=== PATIENT | male | born 1960 | race Caucasian/White ===

== ENCOUNTER 2020-11-26 12:13 | Emergency (ER) | payer OTHER, SELFPAY ==
--- NOTE | ~2020-11-26 | CT_ITS ---
EXAMINATION: CT brain wo con EXAM DATE: 11/26/2020 13:31 INDICATION: Fell out of wheelchair 0400 8 mg coumadin daily. Head injury. TECHNIQUE: Spiral CT of the head was performed without contrast. Axial, coronal and sagittal images were reviewed. The dose-length product (DLP) for this examination was 605.33 mGy-cm. The exposure w as tailored according to patient size, and iterative reconstruction (ASIR) was used as additional dos e reduction technique. Comparison is made to prior examination from 02/16/2016. FINDINGS: There is no acute intraparenchymal hemorrhage. No evidence of intraparenchymal brain mass lesion. No evidence of acute infarction. Please note that initial head CT has limited sensitivity f or small or acute infarctions. There are old bilateral basal ganglia and thalamic lacunar infarction s. There is periventricular and subcortical hypodensity, nonspecific but probably related to small v essel ischemic disease. There is prominence of the sulci and ventricles related to cerebral atrophy . There is intracranial carotid arteriosclerosis. There are no extra-axial collections. There is no mass effect or midline shift. The orbits are unremarkable. There is anterior vertex scalp lacera tion, small amount of swelling. The visualized sinuses and mastoid air cells are well aerated. IMPRESSION: 1. No acute intracranial findings. 2. Chronic age related findings. 3. Old bilateral basal ganglia, thalamic lacunar infarctions. 4. Scalp laceration, swelling. Reviewed, dictated and finalized at location A. NCIAL HEALTH COUNSELOR
[2020-11-26 12:33] VITALS: BP 160/92; PULSE 72; RESP 18; TEMP 36.6; O2SAT 100
[2020-11-26 14:30] VITALS: BP 152/64; PULSE 84; RESP 16; O2SAT 97
--- NOTE | 2020-11-26 15:40 | PC.NURSE ---
patient requested to sit in chair in room. patient assisted to sit in chair at bedside. bed alarm on chair. assisted patient to use urinal. requires assist x 1 at minimum to stand or ambulate.
[2020-11-26 15:42] LABS: INR 1.6; Prothrombin Time 19.7 Seconds (11.1-14.7)
[2020-11-26 15:43] LABS: Partial Thromboplastin Time 36.2 SECONDS (22.3-36.8)
--- NOTE | 2020-11-26 16:04 | ED.HEATRA ---
HPI - Head Injury General Chief complaint: Head Injury Stated complaint: Fall Time Seen by Provider: 11/26/20 14:38 Source: patient Mode of arrival: ambulatory Limitations: no limitations History of Present Illness HPI Narrative: 59-year-old male Presents for evaluation of head injury Usually supposed to use a wheelchair to get around but went to the bathroom around 4 AM without it and fell He struck the top of his head and has a minor abrasion there No other complaints but was sent for evaluation because he takes Coumadin Specifically he has no neck pain, no focal neurologic issues and has not been sick MD Complaint: head injury Related Data Home Medications Medication Instructions Recorded Confirmed Admelog U-100 Insulin lispro 11/26/20 albuterol QID PRN 11/26/20 amantadine HCl DAILY 11/26/20 aspirin [Adult Low Dose Aspirin] 81 mg PO DAILY 11/26/20 atorvastatin 10 mg PO DAILY 11/26/20 benztropine [Cogentin] 1 mg PO BID 11/26/20 bupropion HCl [Wellbutrin SR] 150 mg PO BID 11/26/20 diltiazem HCl [Diltia XT] 120 mg PO DAILY 11/26/20 furosemide [Lasix] 40 mg PO DAILY 11/26/20 insulin glargine [Basaglar KwikPen 8 unit SUBCUT BID 11/26/20 U-100 Insulin] insulin lispro protamin-lispro 10 unit SUBCUT QAM 11/26/20 [Humalog Mix 75-25 KwikPen] lorazepam [Ativan] 0.25 mg PO BID PRN 11/26/20 losartan 50 mg PO DAILY 11/26/20 paroxetine HCl 40 mg PO QAM 11/26/20 risperidone 1 mg PO BID 11/26/20 salmeterol [Serevent Diskus] 1 inh INHALATION Q12H 11/26/20 trazodone 75 mg PO HS 11/26/20 warfarin 8 mg PO DAILY 11/26/20 Allergies Allergy/AdvReac Type Severity Reaction Status Date / Time acetaminophen Allergy Unknown Unknown Verified 11/26/20 12:45 aspirin Allergy Unknown Unknown Verified 11/26/20 12:16 Review of Systems Review of Systems: All systems reviewed & are unremarkable except as noted in HPI and below Constitutional: Constitutional: Denies chills, Reports fatigue, Denies fever(s), Denies headache(s) and Reports weakness Eyes: Eyes: Reports no additional eye complaints and Denies change in vision ENT: Denies headache(s), Denies epistaxis, Denies nasal congestion and Denies sore throat Cardiovascular: Cardiovascular: Denies chest pain, Denies leg edema, Denies palpitations and Denies dyspnea Respiratory: Respiratory: Denies cough, Denies dyspnea and Denies wheezing Gastrointestinal: Gastrointestinal: Denies abdominal pain, Denies diarrhea, Denies nausea and Denies vomiting Genitourinary: Genitourinary: Denies hematuria, Denies dysuria and Denies urinary frequency Musculoskeletal: Musculoskeletal: Denies deformity, Denies arthralgias, Denies joint swelling, Denies muscle weakness and Denies numbness Integumentary/Breasts: Skin/Breast: Denies rash and Denies wounds Neurologic: Denies vertigo, Denies syncope, Reports headache(s), Denies focal weakness, Denies numbness and Denies weakness Psychiatric: Psychiatric: Reports no additional psychiatric complaints Endocrine: Endocrine: Denies fatigue and Denies palpitations Hematologic/Lymphatic: Hematologic/Lymphatic: Denies easy bleeding and Denies easy bruising Allergic/Immunologic: Allergic/Immunologic: Denies wheezing Exam Const: General: well developed, alert and awake Nutritional Appearance: well nourished HENMT: Head: normocephalic, atraumatic and contusion Ears: external ears normal General nose exam: No nasal discharge present and no epistaxis Face and sinus: face symmetric Other: He has got a superficial scrape on top of his head Eyes: Conjunctivae: conjunctivae normal Sclera: sclerae normal EOM: EOMs intact bilaterally Neck: Neck: normal visual inspection, supple and no JVD Other: No neck tenderness, no pain with range of motion Chest: Chest palpation & inspection: deferred Resp: Effort & Inspection: normal respiratory effort Auscultation: clear to auscultation bilaterally, no rales, no rhonchi, no wheezes and other
--- NOTE | 2020-11-26 16:30 | PC.NURSE ---
patient here in ED room 20 after reported ground level fall at approximately 0400 today at the [place]. patient was not sent for evaluation until this afternoon. small abrasion on right side of head. provider has cleaned and assessed. labs drawn now due to blood thinner. CT of head negative. patient is unsteady on his feet. on bed alarm. Ismael WINKLER also at bedside periodically.
--- NOTE | 2020-11-26 16:58 | PC.NURSE ---
pt dinner tray has been ordered
--- NOTE | 2020-11-26 17:55 | PC.NURSE ---
[facility] here early. paperwork completed. [facility] notified of patients return. spoke with Hailey WINKLER. patient given discharge paperwork. copy of ED record given to EMS for facility. alert. oriented. released to EMS care to transport back to [facility].
[2020-11-26 17:58] VITALS: BP 152/78; PULSE 78; RESP 18; TEMP 36.6; O2SAT 96
== END 2020-11-26 17:59 ==
PROVIDERS: General Practice; Emergency Provider Emergency Medicine
DX: S00.01XA Abrasion of scalp, initial encounter (principal); W18.30XA Fall on same level, unspecified, initial encounter
CPT/HCPCS: 36415; 70450; 85610; 85730; 99284

== ENCOUNTER 2021-12-15 14:57 | Inpatient (IN) | payer OTHER, SELFPAY ==
[2021-12-15] VITALS (23 sets, daily range): BP systolic 137–177; BP diastolic 80–100; PULSE 69–96; RESP 20–35; TEMP 36.1–36.8; O2SAT 93–99; BMI 46.4
--- NOTE | ~2021-12-15 | XR_ITS ---
EXAMINATION: XR chest 1V portable DATE: 12/15/2021 16:01 INDICATION: Shortness of breath and congestion. TECHNIQUE: frontal view of the chest was obtained. COMPARISON: Chest radiograph dated 08/08/2016 FINDINGS: Dense calcified pleural plaques projecting over the right mid to lower lung zone. Persistent opacitie s at the lateral left lung base corresponding to atelectasis/scarring. No new airspace opacities, pul monary edema pneumothorax or definitive pleural effusion. Cardiomegaly. Dual lead pacemaker seen with leads projecting over the expected locations of the right atrium and right ventricle. IMPRESSION: 1. Chronic opacities in the right mid to lower lung zones and at the left lung base corresponding to dense calcified pleural plaque on the right and atelectasis/scarring on the left. 2. Cardiomegaly. Reviewed, dictated and finalized at location A. CONSTRUCTION SUPERINTENDENT IMPRESSION: 1. Chronic opacities in the right mid to lower lung zones and at the left lung base corresponding to dense calcified pleural plaque on the right and atelectas is/scarring on the left. 2. Cardiomegaly.
--- NOTE | ~2021-12-15 | US_ITS ---
EXAMINATION: US venous doppler [facility] DATE: 12/16/2021 11:29 INDICATION: Bilateral lower limb edema TECHNIQUE: Turner scale images without and with compression and Doppler images of the bilateral lower e xtremity veins were obtained. COMPARISON: 11/14/2015 FINDINGS: Bilateral Palacios's cysts are noted. The right common femoral vein, profunda femoral vein, femoral vein, popliteal vein, peroneal trunk, p osterior tibial veins, and greater saphenous vein are patent. The left common femoral vein, profunda femoral vein, femoral vein, popliteal vein, peroneal trunk, po sterior tibial veins, and greater saphenous vein are patent. IMPRESSION: 1. Patent bilateral lower extremity veins. No evidence of deep venous thrombosis. 2. Bilateral Palacios cysts. Reviewed, dictated and finalized at location A. F BUILDER IMPRESSION: 1. Patent bilateral lower extremity veins. No evidence of deep venous thrombosi s. 2. Bilateral Palacios cysts.
--- NOTE | ~2021-12-15 | CT_ITS ---
EXAMINATION: CT diagnostic chest wo con DATE: 12/17/2021 16:50 INDICATION: Chronic opacities of the right mid and lower lung and left lung base. Dense calcified ple ural plaques. TECHNIQUE: Computed tomography (CT) of the chest was performed without intravenous contrast. The dose -length product was 470.14 mGy-cm. Automated exposure control and iterative reconstruction technique were employed. COMPARISON: CT dated 12/28/2014 FINDINGS: Cardiomegaly. No significant pleural or pericardial effusion. There is atherosclerosis of t he aorta and coronary arteries. No significant pleural or pericardial effusion. No thoracic lymphaden opathy. There are extensive pleural calcifications of the right lung, likely secondary to previous as bestos exposure or infection. There is chronic bilateral fissural thickening, left greater than right . There is chronic atelectasis/scarring in the lower lobes. There is a 4 mm right upper lobe nodule, image 44, likely benign. There are smaller nodules in the upper lobes. IMPRESSION: 1. Bilateral pulmonary nodules measuring 4 mm or less, likely benign. Consider follow-up low dose CT chest in 12 months. 2: Chronic infiltrates of the lower lungs which most likely represents atelectasis/scarring. 3: Chronic fissural thickening with chronic right pleural calcifications, likely from previous asbes tos exposure or infection. Reviewed, dictated and finalized at location A. EMIC MANAGER IMPRESSION: 1. Bilateral pulmonary nodules measuring 4 mm or less, likely benign. Consider follow-up low dose CT chest in 12 months. 2: Chronic infiltrates of the lower lungs which most likely represents atelecta sis/scarring. 3: Chronic fissural thickening with chronic right pleural calcifications, like ly from previous asbestos exposure or infection.
--- NOTE | ~2021-12-15 | XR_ITS ---
EXAMINATION: XR chest 1V portable DATE: 12/19/2021 12:09 INDICATION: Dyspnea TECHNIQUE: frontal view of the chest was obtained. COMPARISON: Chest radiograph dated 12/15/[address] dated 12/17/2021 FINDINGS: Multiple old right-sided rib fractures and extensive calcified pleural plaques in the right hemithora x likely sequela of chronic hemothorax. Persistent airspace opacities in the bilateral mid and lower lung zones which could represent atelectasis or pneumonia. No pneumothorax or definitive pleural effu natalie. Cardiomegaly. Dual lead pacemaker seen with leads projecting over the expected locations of the right atrium and right ventricle. IMPRESSION: 1. Unchanged opacities in the bilateral mid and lower lung zones which could represent atelectasis an d/or pneumonia. 2. More dense calcified pleural plaques throughout the right lung likely related to chronic hemothora x given the presence of multiple old right-sided rib fractures. 3. Cardiomegaly. Reviewed, dictated and finalized at location A. NICAL SERVICES ASSISTANT IMPRESSION: 1. Unchanged opacities in the bilateral mid and lower lung zones which could re present atelectasis and/or pneumonia. 2. More dense calcified pleural plaques throughout the right lung likely relate d to chronic hemothorax given the presence of multiple old right-sided rib frac tures. 3. Cardiomegaly.
--- NOTE | 2021-12-15 15:15 | ECG_ITS ---
Measurements Intervals [place] Rate: 69 P: [place]: 0 QRS: -73 QRSD: 198 T: 83 QT: 445 QTc: 478 Interpretive Statements ELECTRONIC VENTRICULAR PACEMAKER UNDERLYING PROBABLY ATRIAL FLUTTER/TACHYCARDIA BASELINE ARTIFACT- I, AVR, AVL, AVF, V1 NO FURTHER INTERPRETATION IS POSSIBLE ABNORMAL ECG Electronically Signed On 12-15-2021 15:28:40 [facility]NAGER [facility]ENTER by Dileep Vinson D.O.
--- NOTE | 2021-12-15 15:19 | ED.SOB ---
HPI - SOB/Dyspnea General Chief Complaint: Shortness of Breath/Dyspnea Stated Complaint: SOB Time Seen by Provider: 12/15/21 15:10 Source: patient and family History of Present Illness HPI Narrative: Pt sent from PCP office with SOB. Progressively worse per patient. Pt denies fever or CP. Pt has chronic LE edema. Pt on 3L o2 at home. MD elicited complaint: shortness of breath Pertinent past history: congestive heart failure Timing: constant and progressively worsening Severity: moderate Exacerbating factors: movement Relieving factors: rest Known history of: congestive heart failure Related Data Home Medications Medication Instructions Recorded Confirmed albuterol QID PRN 11/26/20 amantadine HCl 1 PO DAILY 11/26/20 aspirin [Adult Low Dose Aspirin] 81 mg PO DAILY 11/26/20 atorvastatin 10 mg PO HS 11/26/20 diltiazem HCl [Diltia XT] 120 mg PO DAILY 11/26/20 furosemide [Lasix] 40 mg PO DAILY 11/26/20 insulin glargine [Basaglar KwikPen 8 unit SUBCUT DAILY 11/26/20 U-100 Insulin] insulin lispro protamin-lispro 10 unit SUBCUT QAM 11/26/20 [Humalog Mix 75-25 KwikPen] losartan 50 mg PO DAILY 11/26/20 risperidone 1 mg PO DAILY 11/26/20 trazodone 50 mg PO HS 11/26/20 warfarin 6 mg PO DAILY 11/26/20 buspirone 10 mg PO TID 12/15/21 ergocalciferol (vitamin D2) 1 unit PO MONTHLY 12/15/21 famotidine 20 mg PO BID 12/15/21 gabapentin 300 mg PO HS 12/15/21 insulin glargine [Lantus Solostar 40 unit SUBCUT QPM 12/15/21 U-100 Insulin] insulin regular human [Novolin R 4 unit SUBCUT TIDWMEAL 12/15/21 Flexpen] nystatin [Nystop] TOPICAL DAILY PRN 12/15/21 polyethylene glycol 3350 17 g PO DAILY PRN 12/15/21 sennosides-docusate sodium 1 tablet PO BID PRN 12/15/21 [Senexon-S] tamsulosin 0.4 mg PO DAILY 12/15/21 Allergies Allergy/AdvReac Type Severity Reaction Status Date / Time acetaminophen Allergy Unknown Unknown Verified 12/15/21 15:16 aspirin Allergy Unknown Unknown Verified 12/15/21 15:16 Review of Systems Review of Systems: All systems reviewed & are unremarkable except as noted in HPI and below [facility] Social History Social History (Updated 12/15/21 @ 14:34 by Anita Ramirez [facility]) Smoking packs per day: 0.5 Smoking cigarettes per day: 10.0 Years smoked: 30 Smoking pack-years: 15.00 Smoking status: Current every day smoker Exam Const: General: no acute distress Nutritional Appearance: obese Orientation/consciousness: patient oriented x3 Other: somewhat difficult to understand Neck: Neck: normal visual inspection, full ROM, no lymphadenopathy and no meningeal signs Resp: Effort & Inspection: normal respiratory effort and able to speak in complete sentences Auscultation: wheezes Cardio: Rate: regular rate Rhythm: regular rhythm GI: GI Palp: No abdominal tenderness and Yes Firmness to palpation present (GI) (distended (baseline per pt) Auscultation: normal bowel sounds Neuro: General: patient oriented x3 Extrem: General: pedal edema Right lower extremity: edema Left lower extremity: edema Psych: Appearance: grossly normal Mental Status: mental status grossly normal Course Vital Signs Vital signs: Vital Signs Temperature 98.2 F 12/15/21 15:08 Pulse Rate 69 12/15/21 15:08 Respiratory Rate 24 H 12/15/21 15:08 Blood Pressure 159/95 H 12/15/21 15:08 Pulse Oximetry 97 12/15/21 15:08 Temperature 98.2 F 12/15/21 15:08 Pulse Rate 73 12/15/21 18:00 Respiratory Rate 25 H 12/15/21 18:00 Blood Pressure 177/86 H 12/15/21 17:16 Pulse Oximetry 96 12/15/21 17:52 MDM - SOB/Dyspnea Lab Data Result diagrams: 12/15/21 15:39 12/15/21 15:39 Labs: Lab Results 12/15/21 12/15/21 12/15/21 Range/Units 15:39 15:39 15:39 WBC 7.0 (4.5-10.0) K/mm3 RBC 4.07 L (4.6-6.20) M/mm3 Hgb 12.6 L (14.0-18.0) g/dL Hct 41.6 L (42.0-52.0) % MCV 102.2 H (80-100) fl MCH 31.0 (26-34) pg MCHC 30.3 L
[2021-12-15] MEDS: IPRATROPIUM BR 0.02% INH SOLN 0.5 MG/2.5 ML VIAL INHALATION (15:29)
[2021-12-15 15:53] LABS: Hematocrit 41.6 % (42.0-52.0); Hemoglobin 12.6 g/dL (14.0-18.0); Mean Corpuscular Volume 102.2 fl (80-100); Red Blood Count 4.07 M/mm3 (4.6-6.20)
[2021-12-15 15:54] LABS: Basophils Percent Auto 0.3 % (0.2-1.2); Eosinophils Absolute Auto 0.3 K/mm3 (0-0.3); Eosinophils Percent Auto 4.9 % (0-4.4); Immature Granulocyte Absolute 0.01 K/mm3 (0.00-0.031); Immature Granulocyte Percent A 0.1 % (0-0.5); Immature Platelet Fraction Pct 4.1 % (0.9-11.2); Lymphocytes Absolute Auto 0.87 K/mm3 (0.9-3.2); Lymphocytes Percent Auto 12.4 % (18.3-44.2); Mean Corpuscular HGB Conc 30.3 g/dl (32-36); Mean Platelet Volume 9.8 fl (7.4-10.4); Monocytes Absolute Auto 0.8 K/mm3 (0.1-0.6); Monocytes Percent Auto 11.7 % (2.6-8.5); Neutrophils Percent Auto 70.6 % (45.5-73.1); Platelet Count Result 161 k/mm3 (150-375); Red Cell Distribution Width 13.4 % (11.5-14.5)
[2021-12-15 16:01] LABS: INR 2.9
[2021-12-15 16:02] LABS: Partial Thromboplastin Time 41.3 SECONDS (22.3-36.8)
[2021-12-15 16:08] LABS: Alanine Aminotransferase 24 U/L (4-50); Albumin Level 4.1 g/dL (3.5-5.1); Alkaline Phosphatase 92 U/L (38-126); Aspartate Amino Transferase 33 U/L (17-59); Bilirubin,Total 0.5 mg/dL (0.2-1.3); Blood Urea Nitrogen 21 mg/dL (9-20); Calcium 8.9 mg/dL (8.4-10.2); Carbon Dioxide > 40 mmol/L (22-30); Chloride 90 mmol/L (98-107); Estimated CRCL calculation 116 ml/min; Estimated Glomerular Filt Rate > 60; Glucose 119 mg/dL (65-110); Magnesium 1.8 mg/dL (1.6-2.3); Potassium 4.3 mmol/L (3.4-5.0); Sodium 140 mmol/L (137-145)
[2021-12-15 16:17] LABS: NT Pro B Type Natriuretic Pept 330 pg/mL (5-100); Troponin I 0.032 ng/mL (0.000-0.034)
[2021-12-15] MEDS: FUROSEMIDE INJ 40 MG/4 ML VIAL IV PUSH (18:23)
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
[2021-12-15 20:04] LABS: SARS-CoV-2 RNA PCR Negative
--- NOTE | 2021-12-15 21:40 | PC.NURSE ---
SBAR faxed to [address] [place] [address] at [phone]. First attempt to call report at 2120 unsuccessful. Second attempt to call report at 21:40 also unsuccessful. Will follow up.
[2021-12-15 22:03] LABS: Troponin I 0.036 ng/mL (0.000-0.034)
--- NOTE | 2021-12-15 23:16 | PC.NURSE ---
This patient, Jp Morley, was admitted to [facility] Surg Room 328-01. Patient/family oriented to hospital policies and general routines including ID bracelet, bed and alarms, visiting hours, pain management, procedures, bathroom and other care routines, personal items, smoking policy, room service/diet, and visiting hours. Information on how to activate the Rapid Response Team has been discussed. Patient/Family are encouraged to report perceived risks to care and to ask questions if they do not understand what they are told or what they should do.
--- NOTE | 2021-12-15 23:26 | PC.NURSE ---
Spoke with Lelia Morley (patients brother) and gave an update on patients condition.
[2021-12-16] VITALS (11 sets, daily range): BP systolic 131–151; BP diastolic 66–77; PULSE 68–77; RESP 20–24; TEMP 36.2; O2SAT 93–97
--- NOTE | 2021-12-16 | ECHO_ITS ---
Patient Info Name: Jp Morley Age: 60 years : 1960 Gender: Male Ht: 64 in Wt: 270 lbs BSA: 2.42 m2 HR: 69 bpm BP: 151 / 77 mmHg Heart Rhythm: Paced Technical Quality: Poor Exam Date: 12/16/2021 7:52 AM Exam Location: [facility] Patient Status: Inpatient Admit Date: 12/15/2021 Staff Ordering Physician: Zuly Leonardo NP Barbecue Cook: Nayana Thompson RDCS Attending Provider: Sandip Marsh MD Exam Type: CA echo dop color flow w con Study Info Indications - CHF Complete two-dimensional, color flow and Doppler transthoracic echocardiogram is performed with contrast to opacify the left ventricle and to improve the deliniation of the left ventricle endocardial borders. Contrast/Agitated Saline Contrast/Ag. Saline: Definity Amount: 3.00 ml Existing IV Access: Yes IV Access Condition: patent with no signs of infiltration Reason for Poor Study: patient body habitus Summary 1. Technically difficult study with limited views. Regional wall motion assessment limited due to poor endomyocardial border definition despite definity contrast enhancement. 2. Left ventricular chamber dimension is mildly enlarged. 3. Left ventricular systolic function is mild to moderately reduced, estimated at 40-45%. 4. There is moderately increased left ventricular wall thickness. 5. Left ventricular septal wall motion is abnormal with septal motion related to pacing. 6. The left ventricular diastolic function is abnormal. 7. There is no aortic valve stenosis. 8. There is trace tricuspid valve regurgitation. 9. Mild pulmonary hypertension, estimated pulmonary arterial systolic pressure is 40 mmHg. 10. There is trace mitral valve regurgitation. Left Ventricle Technically difficult study with limited views. Regional wall motion assessment limited due to poor endomyocardial border definition despite definity contrast enhancement. Left ventricular chamber dimension is mildly enlarged. Left ventricular systolic function is mild to moderately reduced, estimated at 40-45%. There is moderately increased left ventricular wall thickness. Left ventricular septal wall motion is abnormal with septal motion related to pacing. The left ventricular diastolic function is abnormal. Right Ventricle Right ventricular chamber dimension is normal. Right ventricular systolic function is normal. Linear artifact in right ventricle suggestive of catheter(s), pacemaker lead(s), or ICD lead(s). Left Atria Left atrial chamber dimension is mildly enlarged. Right Atria Right atrial chamber dimension is moderately enlarged. Aortic Valve The aortic valve is not well visualized. There is no aortic valve stenosis. There is no aortic valve regurgitation. There is mild aortic valve calcification. Pulmonic Valve The pulmonic valve is not well visualized. Mitral Valve The mitral valve has thickened leaflets. There is trace mitral valve regurgitation. The mitral valve annulus is mildly calcified. Tricuspid Valve The tricuspid valve leaflets are normal. There is trace tricuspid valve regurgitation. Mild pulmonary hypertension, estimated pulmonary arterial systolic pressure is 40 mmHg. Pericardium/Pleural The pericardium appears normal. There is no pericardial effusion. Inferior Vena Cava Normal inferior vena cava with >50% collapse upon inspiration consistent with normal right atrial pressure, 5 mmHg. Aorta The aorti
[2021-12-16 04:00] LABS: Troponin I 0.035 ng/mL (0.000-0.034)
[2021-12-16] MEDS: ALBUTEROL SULFATE (*SP) AEROSOL 1 PUFF 2 PUFF INHALATION ×2 (05:42→08:50)
[2021-12-16 07:47] LABS: Basophils Percent Auto 0.3 % (0.2-1.2); Eosinophils Absolute Auto 0.3 K/mm3 (0-0.3); Eosinophils Percent Auto 3.8 % (0-4.4); Hematocrit 42.3 % (42.0-52.0); Hemoglobin 12.3 g/dL (14.0-18.0); Immature Granulocyte Absolute 0.01 K/mm3 (0.00-0.031); Immature Granulocyte Percent A 0.1 % (0-0.5); Lymphocytes Absolute Auto 0.86 K/mm3 (0.9-3.2); Lymphocytes Percent Auto 12.7 % (18.3-44.2); Mean Corpuscular HGB Conc 29.1 g/dl (32-36); Mean Corpuscular Volume 106.5 fl (80-100); Mean Platelet Volume 9.6 fl (7.4-10.4); Monocytes Absolute Auto 0.8 K/mm3 (0.1-0.6); Monocytes Percent Auto 11.9 % (2.6-8.5); Neutrophils Absolute Auto 4.8 K/mm3 (1.3-6.7); Neutrophils Percent Auto 71.2 % (45.5-73.1); Platelet Count Result 122 k/mm3 (150-375); Red Blood Count 3.97 M/mm3 (4.6-6.20); Red Cell Distribution Width 13.4 % (11.5-14.5); White Blood Count 6.8 K/mm3 (4.5-10.0)
[2021-12-16 07:48] LABS: INR 2.1; Prothrombin Time 23.1 Seconds (11.1-14.7)
[2021-12-16 07:50] LABS: Lactic Acid Reflex 0.6 mmol/L (0.7-2.1)
[2021-12-16] MEDS: PERFLUTREN LIPID MICROSPHERES 1.5 ML VIAL DILUTED TO 10 ML TOTAL VOLUME IV PUSH (08:20)
--- NOTE | 2021-12-16 08:22 | IVDEFINITY ---
Prior to administration of IV Definity the patient was educated on the risks and benefits of the imaging enhancing agent including potential adverse side effects. The patient verbalized understanding. Allergies were verified. No exclusion criteria were identified and at least one of the following inclusion criteria were met: 1) physician request, 2) patient technically difficult to image (per the [place] [employer] guidelines of two or more segments not discernable within the apical view), or 3) questionable left ventricular function. ?
[2021-12-16 08:26] LABS: Hemoglobin A1C 6.4 % (<5.7)
[2021-12-16 08:31] LABS: Glucose Point of Care 122 mg/dl (65-105)
[2021-12-16 08:37] LABS: Anisocytosis 1+ (NORMAL); Hypochromasia 1+ (NORMAL); Platelet Estimate Adequate (Adequate)
[2021-12-16 08:56] LABS: Alanine Aminotransferase 24 U/L (4-50); Albumin Level 3.9 g/dL (3.5-5.1); Alkaline Phosphatase 85 U/L (38-126); Aspartate Amino Transferase 29 U/L (17-59); Bilirubin,Total 0.5 mg/dL (0.2-1.3); Blood Urea Nitrogen 20 mg/dL (9-20); Calcium 8.8 mg/dL (8.4-10.2); Carbon Dioxide > 40 mmol/L (22-30); Chloride 89 mmol/L (98-107); Estimated CRCL calculation 133 ml/min; Estimated Glomerular Filt Rate > 60; Glucose 136 mg/dL (65-110); Lactate Dehydrogenase 466 U/L (313-618); Magnesium 1.9 mg/dL (1.6-2.3); Potassium 4.6 mmol/L (3.4-5.0); Sodium 141 mmol/L (137-145)
[2021-12-16] MEDS: FAMOTIDINE 20 MG TABLET PO ×2 (08:58→17:21)
[2021-12-16] MEDS: busPIRone HCL 10 MG TABLET PO ×3 (08:58→17:21)
[2021-12-16] MEDS: TAMSULOSIN HCL 0.4 MG CAPSULE PO (08:58)
[2021-12-16] MEDS: FUROSEMIDE INJ 40 MG/4 ML VIAL IV PUSH (08:59)
[2021-12-16] MEDS: risperiDONE 1 MG TABLET PO (08:59)
[2021-12-16] MEDS: LOSARTAN POTASSIUM 50 MG TABLET PO (08:59)
[2021-12-16] MEDS: MULTIVITAMINS THERAPEUTIC TAB (*BKC) 1 TABLET PO (08:59)
[2021-12-16] MEDS: AMANTADINE HCL 100 MG CAPSULE PO (08:59)
[2021-12-16] MEDS: INSULIN GLARGINE (*BKC) 100 UNITS/ML 8 UNITS SUB-Q (09:03)
--- NOTE | 2021-12-16 10:30 | PM.IMPN ---
Progress Note: A&P Assessment and Plan (1) Congestive heart failure: Qualifiers: Heart failure chronicity: acute on chronic Heart failure type: unspecified Qualified Code(s): I50.9 - Heart failure, unspecified Code(s): I50.9 - Heart failure, unspecified Status: Acute Assessment and Plan: Chest xray shows Chronic opacities in the right mid lower lung zone and left lung base corresponding to dense calcified pleural plaque on the right atelectasis/scarring on the left, cardiomegaly BNP 330 Troponins elevate, flat, related to fluid overload and hypercapnic IV Lasix 40mg IV daily Echo EF of 40-45% and moderately reduced diastolic dysfunction Continue with losartan Trend labs Trend urine output Daily weights (2) Hypercapnic respiratory failure: Qualifiers: Chronicity: unspecified Qualified Code(s): J96.92 - Respiratory failure, unspecified with hypercapnia Code(s): J96.92 - Respiratory failure, unspecified with hypercapnia Status: Acute Assessment and Plan: Chronically on oxygen at 2 L per nasal cannula history of COPD Continue inhalers Continue to trend labs (3) Insulin dependent diabetes mellitus: Status: Chronic Assessment and Plan: Current glucose 136 Accu-Cheks AC and HS sliding scale insulin A1c 6.4 Lantus 8 unit QAM, Lantus 40 units at night 4 units with meals Trend glucose adjust therapy as indicated (4) History of DVT (deep vein thrombosis): Code(s): Z86.718 - Personal history of other venous thrombosis and embolism Status: Chronic Assessment and Plan: Patient is therapeutic on his Coumadin. Daily PT INR with continuation of warfarin INR today is 2.1 (5) Depression: Code(s): F32.A - Depression, unspecified Status: Chronic Assessment and Plan: Continue BuSpar (6) Bipolar disorder: Code(s): F31.9 - Bipolar disorder, unspecified Status: Chronic Assessment and Plan: Continue with risperidone (7) Generalized anxiety disorder: Code(s): F41.1 - Generalized anxiety disorder Status: Chronic Assessment and Plan: Continue with home medication. (8) Diabetic neuropathy: Code(s): E11.40 - Type 2 diabetes mellitus with diabetic neuropathy, unspecified Status: Chronic Assessment and Plan: Continue with gabapentin. (9) Obstructive sleep apnea: Code(s): G47.33 - Obstructive sleep apnea (adult) (pediatric) Status: Acute Assessment and Plan: Titrating CPAP. The patient tells me that he does not wear it but his last admission he and auto titrate CPAP Time Spent With Patient Time with patient: Greater than 35 minutes Subjective Date/time seen: 12/16/21 10:30 Interval history: Date/Time: 12/15/21 18:40 This is a 60-year-old male patient who was sent from his primary care doctor's office with shortness of breath. Patient has had no fever chills or any chest pain. The patient has been complaining of having some edema to his lower extremities. He does have sleep apnea but does not wear CPAP. He just wears oxygen at 2 L per nasal cannula. The patient has had a history of having traumatic brain injury and is slow to answer times. The patient has a known history of congestive heart failure. Patient stated that he feels better when he is at rest and worse with movement. He also has COPD. H&H is 12.6 and 41.6. MCH is 102.2. COVID is negative. PT 29. INR 2.9. The patient is being admitted to observation status 12/15/2021. Date/Time 12/16/21 1030 Patient is doing ok today. He does admit to getting winded when he applies himself to activity. He did deny chest pain, nausea, vomiting, abdominal pain. He stated that he was really interested in shaving and getting a shower. He denies having a cough. Review of Systems Review of Systems: All systems reviewed &
--- NOTE | 2021-12-16 10:30 | P.PNIM_ITS ---
Progress Note: A&P Assessment and Plan (1) Congestive heart failure: Qualifiers: Heart failure chronicity: acute on chronic Heart failure type: unspecified Qualified Code(s): I50.9 - Heart failure, unspecified Code(s): I50.9 - Heart failure, unspecified Status: Acute Assessment and Plan: * Chest xray shows Chronic opacities in the right mid lower lung zone and left lung base corresponding to dense calcified pleural plaque on the right atelectasis/scarring on the left, cardiomegaly * BNP 330 * Troponins elevate, flat, related to fluid overload and hypercapnic * IV Lasix 40mg IV daily * Echo EF of 40-45% and moderately reduced diastolic dysfunction * Continue with losartan * Trend labs * Trend urine output * Daily weights (2) Hypercapnic respiratory failure: Qualifiers: Chronicity: unspecified Qualified Code(s): J96.92 - Respiratory failure, unspecified with hypercapnia Code(s): J96.92 - Respiratory failure, unspecified with hypercapnia Status: Acute Assessment and Plan: * Chronically on oxygen at 2 L per nasal cannula * history of COPD * Continue inhalers * Continue to trend labs (3) Insulin dependent diabetes mellitus: Status: Chronic Assessment and Plan: * Current glucose 136 * Accu-Cheks AC and HS * sliding scale insulin * A1c 6.4 * Lantus 8 unit QAM, Lantus 40 units at night * 4 units with meals * Trend glucose * adjust therapy as indicated (4) History of DVT (deep vein thrombosis): Code(s): Z86.718 - Personal history of other venous thrombosis and embolism Status: Chronic Assessment and Plan: * Patient is therapeutic on his Coumadin. * Daily PT INR with continuation of warfarin * INR today is 2.1 (5) Depression: Code(s): F32.A - Depression, unspecified Status: Chronic Assessment and Plan: * Continue BuSpar (6) Bipolar disorder: Code(s): F31.9 - Bipolar disorder, unspecified Status: Chronic Assessment and Plan: * Continue with risperidone (7) Generalized anxiety disorder: Code(s): F41.1 - Generalized anxiety disorder Status: Chronic Assessment and Plan: * Continue with home medication. (8) Diabetic neuropathy: Code(s): E11.40 - Type 2 diabetes mellitus with diabetic neuropathy, unspecified Status: Chronic Assessment and Plan: * Continue with gabapentin. (9) Obstructive sleep apnea: Code(s): G47.33 - Obstructive sleep apnea (adult) (pediatric) Status: Acute Assessment and Plan: * Titrating CPAP. * The patient tells me that he does not wear it but his last admission he and auto titrate CPAP Time Spent With Patient Time with patient: Greater than 35 minutes Subjective Date/time seen: 12/16/21 10:30 Interval history: Date/Time: 12/15/21 18:40 This is a 60-year-old male patient who was sent from his primary care doctor's office with shortness of breath. Patient has had no fever chills or any chest pain. The patient has been complaining of having some edema to his lower extremities. He does have sleep apnea but does not wear CPAP. He just wears oxygen at 2 L per nasal cannula. The patient has had a history of having traumatic brain injury and is slow to answer times. The patient has a known history of congestive heart failure. Patient stated that he feels better when he is at rest and worse with movement. He als
[2021-12-16 12:37] LABS: Glucose Point of Care 130 mg/dl (65-105)
[2021-12-16] MEDS: ALBUTEROL SULFATE NEB 2.5 MG/0.5 ML INH INHALATION ×2 (14:30→19:25)
[2021-12-16] MEDS: IPRATROPIUM BR 0.02% INH SOLN 0.5 MG/2.5 ML VIAL INHALATION ×2 (14:30→19:25)
[2021-12-16 16:26] LABS: Glucose Point of Care 97 mg/dl (65-105)
[2021-12-16] MEDS: traZODone HCL 50 MG TABLET PO (20:21)
[2021-12-16] MEDS: WARFARIN (*PBKC) 3 MG TABLET 6 MG PO (20:21)
[2021-12-16] MEDS: ATORVASTATIN 10 MG TABLET PO (20:21)
[2021-12-16] MEDS: GABAPENTIN 300 MG CAPSULE PO (20:21)
[2021-12-16] MEDS: INSULIN GLARGINE (*BKC) 100 UNITS/ML 40 UNITS SUB-Q (20:26)
[2021-12-16 21:59] LABS: Glucose Point of Care 166 mg/dl (65-105)
--- NOTE | 2021-12-16 22:45 | PC.NURSE ---
Vancomycin trough was 16.4 on 12/16/21 at 22:30. Pharmacy called and said OK to give.
[2021-12-17] VITALS (17 sets, daily range): BP systolic 148–163; BP diastolic 76–89; PULSE 60–114; RESP 16–24; TEMP 36.1–36.3; O2SAT 90–98
[2021-12-17] MEDS: ALBUTEROL SULFATE NEB 2.5 MG/0.5 ML INH INHALATION ×4 (02:14→19:26)
[2021-12-17] MEDS: IPRATROPIUM BR 0.02% INH SOLN 0.5 MG/2.5 ML VIAL INHALATION ×4 (02:14→19:26)
[2021-12-17] MEDS: MORPHINE SULFATE (*CRX) 2 MG/ML INJ IV PUSH (08:10)
[2021-12-17 08:11] LABS: Glucose Point of Care 99 mg/dl (65-105)
[2021-12-17 09:07] LABS: Basophils Percent Auto 0.3 % (0.2-1.2); Eosinophils Absolute Auto 0.3 K/mm3 (0-0.3); Eosinophils Percent Auto 4.5 % (0-4.4); Hematocrit 40.9 % (42.0-52.0); Hemoglobin 12.3 g/dL (14.0-18.0); Immature Granulocyte Absolute 0.03 K/mm3 (0.00-0.031); Immature Granulocyte Percent A 0.4 % (0-0.5); Immature Platelet Fraction Pct 3.9 % (0.9-11.2); Lymphocytes Absolute Auto 1.01 K/mm3 (0.9-3.2); Lymphocytes Percent Auto 14.6 % (18.3-44.2); Mean Corpuscular HGB Conc 30.1 g/dl (32-36); Mean Corpuscular Hemoglobin 30.6 pg (26-34); Mean Corpuscular Volume 101.7 fl (80-100); Mean Platelet Volume 9.6 fl (7.4-10.4); Monocytes Absolute Auto 0.8 K/mm3 (0.1-0.6); Monocytes Percent Auto 12.2 % (2.6-8.5); Neutrophils Absolute Auto 4.7 K/mm3 (1.3-6.7); Platelet Count Result 142 k/mm3 (150-375); Red Blood Count 4.02 M/mm3 (4.6-6.20); Red Cell Distribution Width 13.3 % (11.5-14.5); White Blood Count 6.9 K/mm3 (4.5-10.0)
[2021-12-17] MEDS: INSULIN GLARGINE (*BKC) 100 UNITS/ML 8 UNITS SUB-Q (09:08)
[2021-12-17] MEDS: FAMOTIDINE 20 MG TABLET PO ×2 (09:09→18:05)
[2021-12-17] MEDS: AMANTADINE HCL 100 MG CAPSULE PO (09:09)
[2021-12-17] MEDS: TAMSULOSIN HCL 0.4 MG CAPSULE PO (09:09)
[2021-12-17] MEDS: FUROSEMIDE INJ 40 MG/4 ML VIAL IV PUSH (09:09)
[2021-12-17] MEDS: LOSARTAN POTASSIUM 50 MG TABLET PO (09:09)
[2021-12-17] MEDS: MULTIVITAMINS THERAPEUTIC TAB (*BKC) 1 TABLET PO (09:09)
[2021-12-17] MEDS: busPIRone HCL 10 MG TABLET PO ×3 (09:09→18:04)
[2021-12-17] MEDS: ERGOCALCIFEROL 50,000 UNIT CAPSULE 50000 UNITS PO (09:09)
[2021-12-17] MEDS: risperiDONE 1 MG TABLET PO (09:09)
[2021-12-17 10:23] LABS: Alanine Aminotransferase 23 U/L (4-50); Albumin Level 3.9 g/dL (3.5-5.1); Alkaline Phosphatase 79 U/L (38-126); Aspartate Amino Transferase 28 U/L (17-59); Bilirubin,Total 0.5 mg/dL (0.2-1.3); Blood Urea Nitrogen 19 mg/dL (9-20); Calcium 8.8 mg/dL (8.4-10.2); Carbon Dioxide > 40 mmol/L (22-30); Chloride 90 mmol/L (98-107); Estimated CRCL calculation 133 ml/min; Estimated Glomerular Filt Rate > 60; Glucose 95 mg/dL (65-110); Magnesium 1.9 mg/dL (1.6-2.3); Potassium 4.4 mmol/L (3.4-5.0); Sodium 138 mmol/L (137-145)
--- NOTE | 2021-12-17 11:33 | P.PNIM_ITS ---
Progress Note: A&P Assessment and Plan (1) Congestive heart failure: Qualifiers: Heart failure chronicity: acute on chronic Heart failure type: unspecified Qualified Code(s): I50.9 - Heart failure, unspecified Code(s): I50.9 - Heart failure, unspecified Status: Acute Assessment and Plan: * Chest xray shows Chronic opacities in the right mid lower lung zone and left lung base corresponding to dense calcified pleural plaque on the right atelectasis/scarring on the left, cardiomegaly * BNP 330 * Troponins elevate, flat, related to fluid overload and hypercapnic * IV Lasix 40mg IV daily * Echo EF of 40-45% and moderately reduced diastolic dysfunction no significant valvular abnormality mild pulmonary hypertension 40 mm Hg * Continue with losartan * Trend labs * Trend urine output * Daily weights Status post pacemaker implantation (2) Hypercapnic respiratory failure: Qualifiers: Chronicity: unspecified Qualified Code(s): J96.92 - Respiratory failure, unspecified with hypercapnia Code(s): J96.92 - Respiratory failure, unspecified with hypercapnia Status: Acute Assessment and Plan: * Chronically on oxygen at 2 L per nasal cannula * history of COPD * Continue inhalers * Continue to trend labs Suspect COPD exacerbation and/or pneumonia Start doxycycline and Solu-Medrol still quite wheezy on examination Will check ABG and CT chest (3) Insulin dependent diabetes mellitus: Status: Chronic Assessment and Plan: * Accu-Cheks AC and HS * sliding scale insulin * A1c 6.4 * Lantus 8 unit QAM, Lantus 40 units at night * 4 units with meals * Trend glucose * adjust therapy as indicated (4) History of DVT (deep vein thrombosis): Code(s): Z86.718 - Personal history of other venous thrombosis and embolism Status: Chronic Assessment and Plan: * Patient is therapeutic on his Coumadin. * Daily PT INR with continuation of warfarin * Monitor INR daily (5) Depression: Code(s): F32.A - Depression, unspecified Status: Chronic Assessment and Plan: * Continue BuSpar (6) Bipolar disorder: Code(s): F31.9 - Bipolar disorder, unspecified Status: Chronic Assessment and Plan: * Continue with risperidone (7) Generalized anxiety disorder: Code(s): F41.1 - Generalized anxiety disorder Status: Chronic Assessment and Plan: * Continue with home medication. (8) Diabetic neuropathy: Code(s): E11.40 - Type 2 diabetes mellitus with diabetic neuropathy, unspecified Status: Chronic Assessment and Plan: * Continue with gabapentin. (9) Obstructive sleep apnea: Code(s): G47.33 - Obstructive sleep apnea (adult) (pediatric) Status: Acute Assessment and Plan: * Titrating CPAP. * The patient tells me that he does not wear it but his last admission he and auto titrate CPAP Subjective Date/time seen: 12/17/21 11:33 Interval history: Date/Time: 12/15/21 18:40 This is a 60-year-old male patient who was sent from his primary care doctor's office with shortness of breath. Patient has had no fever chills or any chest pain. The patient has been complaining of having some edema to his lower extremities. He does have sleep apnea but does not wear CPAP. He just wears oxygen at 2 L per nasal cannula. The patient has had a history of having traumatic brain injury and is slo
--- NOTE | 2021-12-17 11:33 | PM.IMPN ---
Progress Note: A&P Assessment and Plan (1) Congestive heart failure: Qualifiers: Heart failure chronicity: acute on chronic Heart failure type: unspecified Qualified Code(s): I50.9 - Heart failure, unspecified Code(s): I50.9 - Heart failure, unspecified Status: Acute Assessment and Plan: Chest xray shows Chronic opacities in the right mid lower lung zone and left lung base corresponding to dense calcified pleural plaque on the right atelectasis/scarring on the left, cardiomegaly BNP 330 Troponins elevate, flat, related to fluid overload and hypercapnic IV Lasix 40mg IV daily Echo EF of 40-45% and moderately reduced diastolic dysfunction no significant valvular abnormality mild pulmonary hypertension 40 mm Hg Continue with losartan Trend labs Trend urine output Daily weights Status post pacemaker implantation (2) Hypercapnic respiratory failure: Qualifiers: Chronicity: unspecified Qualified Code(s): J96.92 - Respiratory failure, unspecified with hypercapnia Code(s): J96.92 - Respiratory failure, unspecified with hypercapnia Status: Acute Assessment and Plan: Chronically on oxygen at 2 L per nasal cannula history of COPD Continue inhalers Continue to trend labs Suspect COPD exacerbation and/or pneumonia Start doxycycline and Solu-Medrol still quite wheezy on examination Will check ABG and CT chest (3) Insulin dependent diabetes mellitus: Status: Chronic Assessment and Plan: Accu-Cheks AC and HS sliding scale insulin A1c 6.4 Lantus 8 unit QAM, Lantus 40 units at night 4 units with meals Trend glucose adjust therapy as indicated (4) History of DVT (deep vein thrombosis): Code(s): Z86.718 - Personal history of other venous thrombosis and embolism Status: Chronic Assessment and Plan: Patient is therapeutic on his Coumadin. Daily PT INR with continuation of warfarin Monitor INR daily (5) Depression: Code(s): F32.A - Depression, unspecified Status: Chronic Assessment and Plan: Continue BuSpar (6) Bipolar disorder: Code(s): F31.9 - Bipolar disorder, unspecified Status: Chronic Assessment and Plan: Continue with risperidone (7) Generalized anxiety disorder: Code(s): F41.1 - Generalized anxiety disorder Status: Chronic Assessment and Plan: Continue with home medication. (8) Diabetic neuropathy: Code(s): E11.40 - Type 2 diabetes mellitus with diabetic neuropathy, unspecified Status: Chronic Assessment and Plan: Continue with gabapentin. (9) Obstructive sleep apnea: Code(s): G47.33 - Obstructive sleep apnea (adult) (pediatric) Status: Acute Assessment and Plan: Titrating CPAP. The patient tells me that he does not wear it but his last admission he and auto titrate CPAP Subjective Date/time seen: 12/17/21 11:33 Interval history: Date/Time: 12/15/21 18:40 This is a 60-year-old male patient who was sent from his primary care doctor's office with shortness of breath. Patient has had no fever chills or any chest pain. The patient has been complaining of having some edema to his lower extremities. He does have sleep apnea but does not wear CPAP. He just wears oxygen at 2 L per nasal cannula. The patient has had a history of having traumatic brain injury and is slow to answer times. The patient has a known history of congestive heart failure. Patient stated that he feels better when he is at rest and worse with movement. He also has COPD. H&H is 12.6 and 41.6. MCH is 102.2. COVID is negative. PT 29. INR 2.9. The patient is being admitted to observation status 12/15/2021. Date/Time 12/16/21 1030 Patient is doing ok today. He does admit to getting winded when he applies himself to activity. He did deny chest pain, nausea, vomiting, abdominal pain. He sta
[2021-12-17 12:00] LABS: Glucose Point of Care 115 mg/dl (65-105)
[2021-12-17] MEDS: DOXYCYCLINE 100 MG/NS 100 ML 100 MG/100 ML BAG IVPB (13:43)
[2021-12-17] MEDS: methylPREDNISolone SOD SUCC 40 MG VIAL IV PUSH (13:44)
[2021-12-17] MEDS: IBUPROFEN 600 MG TABLET PO ×2 (13:56→22:19)
[2021-12-17 15:08] LABS: Alveolar/Arterial O2 Gradient 101.2 mmHg; Base Excess ABG 18.3 mEq/l (+/-2.0); Fractional Inspired Oxygen 34 %; HCO3 ABG 45.9 mEq/l (22.0-26.0); Oxygen Content ABG 16.7 %vol (16.0-22.0); Oxygen Saturation ABG 91.8 % (95.0-100.0); Oxyhemoglobin 91.6 % THb (90.0-100.0); PO2 ABG 62.2 mmHg (80.0-100.0); PO2 FiO2 Ratio Arterial Blood 1.83 %; pH ABG 7.448 (7.350-7.450)
[2021-12-17 15:10] LABS: Device NASAL CANNULA; Liters per Minute 3.5 LPM; Modified Allen's Test Pass; PCO2 ABG 67.8 mmHg (35.0-45.0); Site Drawn LEFT RADIAL
[2021-12-17 17:00] LABS: Glucose Point of Care 113 mg/dl (65-105)
[2021-12-17 20:35] LABS: Glucose Point of Care 284 mg/dl (65-105)
[2021-12-17] MEDS: WARFARIN (*PBKC) 3 MG TABLET 6 MG PO (20:37)
[2021-12-17] MEDS: ATORVASTATIN 10 MG TABLET PO (20:37)
[2021-12-17] MEDS: traZODone HCL 50 MG TABLET PO (20:37)
[2021-12-17] MEDS: GABAPENTIN 300 MG CAPSULE PO (20:37)
[2021-12-17] MEDS: INSULIN GLARGINE (*BKC) 100 UNITS/ML 40 UNITS SUB-Q (20:39)
[2021-12-18] VITALS (17 sets, daily range): BP systolic 131–177; BP diastolic 66–93; PULSE 40–113; RESP 16–22; TEMP 36–37; O2SAT 88–97
[2021-12-18] MEDS: methylPREDNISolone SOD SUCC 40 MG VIAL IV PUSH ×2 (00:05→05:44)
[2021-12-18] MEDS: DOXYCYCLINE 100 MG/NS 100 ML 100 MG/100 ML BAG IVPB (00:08)
[2021-12-18] MEDS: IPRATROPIUM BR 0.02% INH SOLN 0.5 MG/2.5 ML VIAL INHALATION ×4 (01:58→19:08)
[2021-12-18] MEDS: ALBUTEROL SULFATE NEB 2.5 MG/0.5 ML INH INHALATION ×4 (01:58→19:08)
[2021-12-18] MEDS: hydrALAZINE HCL 20 MG/ML VIAL 10 MG IV PUSH (05:44)
[2021-12-18 06:49] LABS: Basophils Percent Auto 0.1 % (0.2-1.2); Hematocrit 40.1 % (42.0-52.0); Hemoglobin 12.1 g/dL (14.0-18.0); Immature Granulocyte Absolute 0.05 K/mm3 (0.00-0.031); Immature Granulocyte Percent A 0.7 % (0-0.5); Lymphocytes Absolute Auto 0.48 K/mm3 (0.9-3.2); Lymphocytes Percent Auto 6.8 % (18.3-44.2); Mean Corpuscular HGB Conc 30.2 g/dl (32-36); Mean Corpuscular Hemoglobin 30.3 pg (26-34); Mean Corpuscular Volume 100.5 fl (80-100); Mean Platelet Volume 9.9 fl (7.4-10.4); Monocytes Absolute Auto 0.1 K/mm3 (0.1-0.6); Monocytes Percent Auto 1.4 % (2.6-8.5); Neutrophils Absolute Auto 6.4 K/mm3 (1.3-6.7); Platelet Count Result 143 k/mm3 (150-375); Red Blood Count 3.99 M/mm3 (4.6-6.20); Red Cell Distribution Width 13.2 % (11.5-14.5)
[2021-12-18 06:57] LABS: INR 1.6; Prothrombin Time 18.2 Seconds (11.1-14.7)
[2021-12-18 07:01] LABS: Blood Urea Nitrogen 20 mg/dL (9-20); Calcium 8.9 mg/dL (8.4-10.2); Carbon Dioxide > 40 mmol/L (22-30); Chloride 90 mmol/L (98-107); Estimated CRCL calculation 116 ml/min; Estimated Glomerular Filt Rate > 60; Glucose 257 mg/dL (65-110); Magnesium 1.8 mg/dL (1.6-2.3); Potassium 4.5 mmol/L (3.4-5.0); Sodium 137 mmol/L (137-145)
[2021-12-18 08:00] LABS: Glucose Point of Care 353 mg/dl (65-105)
[2021-12-18] MEDS: busPIRone HCL 10 MG TABLET PO ×3 (08:14→16:37)
[2021-12-18] MEDS: TAMSULOSIN HCL 0.4 MG CAPSULE PO (08:15)
[2021-12-18] MEDS: LOSARTAN POTASSIUM 50 MG TABLET PO (08:15)
[2021-12-18] MEDS: risperiDONE 1 MG TABLET PO (08:15)
[2021-12-18] MEDS: MULTIVITAMINS THERAPEUTIC TAB (*BKC) 1 TABLET PO (08:15)
[2021-12-18] MEDS: FAMOTIDINE 20 MG TABLET PO ×2 (08:15→16:37)
[2021-12-18] MEDS: INSULIN GLARGINE (*BKC) 100 UNITS/ML 8 UNITS SUB-Q (08:16)
[2021-12-18] MEDS: FUROSEMIDE INJ 40 MG/4 ML VIAL IV PUSH (08:16)
[2021-12-18] MEDS: INSULIN ASPART (*BKC) 100 UNITS/ML SUB-Q (08:16)
[2021-12-18] MEDS: AMANTADINE HCL 100 MG CAPSULE PO (08:53)
[2021-12-18 12:05] LABS: Glucose Point of Care 164 mg/dl (65-105)
[2021-12-18] MEDS: ASPIRIN 81 MG ENTERIC TABLET PO (12:41)
[2021-12-18] MEDS: DOXYCYCLINE HYCLATE 100 MG TABLET PO ×2 (13:53→20:10)
[2021-12-18] MEDS: FUROSEMIDE 40 MG TABLET PO (13:53)
--- NOTE | 2021-12-18 14:03 | P.PNIM_ITS ---
Progress Note: A&P Assessment and Plan (1) Congestive heart failure: Qualifiers: Heart failure chronicity: acute on chronic Heart failure type: unspecified Qualified Code(s): I50.9 - Heart failure, unspecified Code(s): I50.9 - Heart failure, unspecified Status: Acute Assessment and Plan: * Chest xray shows Chronic opacities in the right mid lower lung zone and left lung base corresponding to dense calcified pleural plaque on the right atelectasis/scarring on the left, cardiomegaly * BNP 330 * Troponins elevate, flat, related to fluid overload and hypercapnic * IV Lasix 40mg IV daily * Echo EF of 40-45% and moderately reduced diastolic dysfunction no significant valvular abnormality mild pulmonary hypertension 40 mm Hg * Continue with losartan * Trend labs * Trend urine output * Daily weights Status post pacemaker implantation 12/18/2021 in terval history: patient is 60-year-old male presented with shortness of breath gets short winded with activity most likely multifactorial as patient has history moderate diastolic congestive heart failure, hypercarbic respiratory failure COPD and morbid obesity with hypoventilation syndrome, patient has been treated with IV Lasix, methylprednisone and doxycycline however patient lost his IV today and unable to restart one, will switch Lasix, methylprednisone, and doxycycline to oral, will continue to monitor, patient to continue to work with PT OT and patient will benefit from acute rehab. (2) Hypercapnic respiratory failure: Qualifiers: Chronicity: unspecified Qualified Code(s): J96.92 - Respiratory failure, unspecified with hypercapnia Code(s): J96.92 - Respiratory failure, unspecified with hypercapnia Status: Acute Assessment and Plan: * Chronically on oxygen at 2 L per nasal cannula * history of COPD * Continue inhalers * Continue to trend labs Suspect COPD exacerbation and/or pneumonia Start doxycycline and Solu-Medrol still quite wheezy on examination Will check ABG and CT chest (3) Insulin dependent diabetes mellitus: Status: Chronic Assessment and Plan: * Accu-Cheks AC and HS * sliding scale insulin * A1c 6.4 * Lantus 8 unit QAM, Lantus 40 units at night * 4 units with meals * Trend glucose * adjust therapy as indicated (4) History of DVT (deep vein thrombosis): Code(s): Z86.718 - Personal history of other venous thrombosis and embolism Status: Chronic Assessment and Plan: * Patient is therapeutic on his Coumadin. * Daily PT INR with continuation of warfarin * Monitor INR daily (5) Depression: Code(s): F32.A - Depression, unspecified Status: Chronic Assessment and Plan: * Continue BuSpar (6) Bipolar disorder: Code(s): F31.9 - Bipolar disorder, unspecified Status: Chronic Assessment and Plan: * Continue with risperidone (7) Generalized anxiety disorder: Code(s): F41.1 - Generalized anxiety disorder Status: Chronic Assessment and Plan: * Continue with home medication. (8) Diabetic neuropathy: Code(s): E11.40 - Type 2 diabetes mellitus with diabetic neuropathy, unspecified Status: Chronic Assessment and Plan: * Continue with gabapentin. (9) Obstructive sleep apnea: Code(s): G47.33 - Obstructive sleep apnea (adult) (pediatric) Status: Acute Assessment and Plan: * Titrating CPAP. * The patient tells me that he does not wear it but hi
--- NOTE | 2021-12-18 14:03 | PM.IMPN ---
Progress Note: A&P Assessment and Plan (1) Congestive heart failure: Qualifiers: Heart failure chronicity: acute on chronic Heart failure type: unspecified Qualified Code(s): I50.9 - Heart failure, unspecified Code(s): I50.9 - Heart failure, unspecified Status: Acute Assessment and Plan: Chest xray shows Chronic opacities in the right mid lower lung zone and left lung base corresponding to dense calcified pleural plaque on the right atelectasis/scarring on the left, cardiomegaly BNP 330 Troponins elevate, flat, related to fluid overload and hypercapnic IV Lasix 40mg IV daily Echo EF of 40-45% and moderately reduced diastolic dysfunction no significant valvular abnormality mild pulmonary hypertension 40 mm Hg Continue with losartan Trend labs Trend urine output Daily weights Status post pacemaker implantation 12/18/2021 in terval history: patient is 60-year-old male presented with shortness of breath gets short winded with activity most likely multifactorial as patient has history moderate diastolic congestive heart failure, hypercarbic respiratory failure COPD and morbid obesity with hypoventilation syndrome, patient has been treated with IV Lasix, methylprednisone and doxycycline however patient lost his IV today and unable to restart one, will switch Lasix, methylprednisone, and doxycycline to oral, will continue to monitor, patient to continue to work with PT OT and patient will benefit from acute rehab. (2) Hypercapnic respiratory failure: Qualifiers: Chronicity: unspecified Qualified Code(s): J96.92 - Respiratory failure, unspecified with hypercapnia Code(s): J96.92 - Respiratory failure, unspecified with hypercapnia Status: Acute Assessment and Plan: Chronically on oxygen at 2 L per nasal cannula history of COPD Continue inhalers Continue to trend labs Suspect COPD exacerbation and/or pneumonia Start doxycycline and Solu-Medrol still quite wheezy on examination Will check ABG and CT chest (3) Insulin dependent diabetes mellitus: Status: Chronic Assessment and Plan: Accu-Cheks AC and HS sliding scale insulin A1c 6.4 Lantus 8 unit QAM, Lantus 40 units at night 4 units with meals Trend glucose adjust therapy as indicated (4) History of DVT (deep vein thrombosis): Code(s): Z86.718 - Personal history of other venous thrombosis and embolism Status: Chronic Assessment and Plan: Patient is therapeutic on his Coumadin. Daily PT INR with continuation of warfarin Monitor INR daily (5) Depression: Code(s): F32.A - Depression, unspecified Status: Chronic Assessment and Plan: Continue BuSpar (6) Bipolar disorder: Code(s): F31.9 - Bipolar disorder, unspecified Status: Chronic Assessment and Plan: Continue with risperidone (7) Generalized anxiety disorder: Code(s): F41.1 - Generalized anxiety disorder Status: Chronic Assessment and Plan: Continue with home medication. (8) Diabetic neuropathy: Code(s): E11.40 - Type 2 diabetes mellitus with diabetic neuropathy, unspecified Status: Chronic Assessment and Plan: Continue with gabapentin. (9) Obstructive sleep apnea: Code(s): G47.33 - Obstructive sleep apnea (adult) (pediatric) Status: Acute Assessment and Plan: Titrating CPAP. The patient tells me that he does not wear it but his last admission he and auto titrate CPAP Subjective Date/time seen: 12/18/21 14:03 Interval history: Date/Time: 12/15/21 18:40 This is a 60-year-old male patient who was sent from his primary care doctor's office with shortness of breath. Patient has had no fever chills or any chest pain. The patient has been complaining of having some edema to his lower extremities. He does have sleep apnea but does not wear CPAP. He just wears ox
[2021-12-18 16:56] LABS: Glucose Point of Care 134 mg/dl (65-105)
[2021-12-18] MEDS: ATORVASTATIN 10 MG TABLET PO (20:10)
[2021-12-18] MEDS: traZODone HCL 50 MG TABLET PO (20:10)
[2021-12-18] MEDS: GABAPENTIN 300 MG CAPSULE PO (20:10)
[2021-12-18] MEDS: WARFARIN (*PBKC) 3 MG TABLET 6 MG PO (20:10)
[2021-12-18] MEDS: INSULIN GLARGINE (*BKC) 100 UNITS/ML 40 UNITS SUB-Q (20:12)
[2021-12-18 20:27] LABS: Glucose Point of Care 152 mg/dl (65-105)
--- NOTE | 2021-12-18 23:29 | ECG_ITS ---
Measurements Intervals [place] Rate: 76 P: [place]: 0 QRS: -49 QRSD: 164 T: -5 QT: 407 QTc: 459 Interpretive Statements ELECTRONIC VENTRICULAR PACEMAKER WITH INHIBITION UNDERLYING ATRIAL FLUTTER RIGHT BUNDLE BRANCH BLOCK LEFT ANTERIOR FASCICULAR BLOCK BASELINE ARTIFACT- I, II ABNORMAL ECG Electronically Signed On 12-19-2021 7:58:25 SAS PROGRAMMER ANALYST by Dileep Vinson D.O.
--- NOTE | 2021-12-18 23:29 | PC.NURSE ---
12/18/21 [id number] contacted guera regarding pt's vtach run. no new orders. stated she will contact [facility]. pt on bipap sleeping easily aroused. pt asymptomatic.
[2021-12-19] VITALS (16 sets, daily range): BP systolic 146–149; BP diastolic 84–95; PULSE 61–96; RESP 15–18; TEMP 36.5–36.8; O2SAT 92–97
[2021-12-19 00:11] LABS: Alveolar/Arterial O2 Gradient 178.7 mmHg; Base Excess ABG 16.1 mEq/l (+/-2.0); Fractional Inspired Oxygen 44 %; HCO3 ABG 44.2 mEq/l (22.0-26.0); PO2 ABG 54.2 mmHg (80.0-100.0); PO2 FiO2 Ratio Arterial Blood 1.23 %; Total Hemoglobin 13.2 g/dL (12.0-18.0); pH ABG 7.413 (7.350-7.450)
[2021-12-19 00:14] LABS: Oxygen Saturation ABG 87.1 % (95.0-100.0); PCO2 ABG 70.9 mmHg (35.0-45.0)
[2021-12-19 00:15] LABS: Device CPAP; Modified Allen's Test Pass; Oxyhemoglobin 86.3 % THb (90.0-100.0); Site Drawn RIGHT RADIAL
[2021-12-19 00:22] LABS: Blood Urea Nitrogen 26 mg/dL (9-20); Calcium 9.1 mg/dL (8.4-10.2); Carbon Dioxide > 40 mmol/L (22-30); Chloride 89 mmol/L (98-107); Estimated CRCL calculation 131 ml/min; Estimated Glomerular Filt Rate > 60; Glucose 244 mg/dL (65-110); Magnesium 1.9 mg/dL (1.6-2.3); Potassium 4.6 mmol/L (3.4-5.0); Sodium 136 mmol/L (137-145)
[2021-12-19 00:37] LABS: Troponin I 0.022 ng/mL (0.000-0.034)
[2021-12-19] MEDS: IPRATROPIUM BR 0.02% INH SOLN 0.5 MG/2.5 ML VIAL INHALATION ×3 (02:06→14:30)
[2021-12-19] MEDS: ALBUTEROL SULFATE NEB 2.5 MG/0.5 ML INH INHALATION ×3 (02:06→14:30)
[2021-12-19] MEDS: IBUPROFEN 600 MG TABLET PO (06:20)
[2021-12-19 06:42] LABS: Prothrombin Time 21.9 Seconds (11.1-14.7)
[2021-12-19 08:12] LABS: Glucose Point of Care 90 mg/dl (65-105)
[2021-12-19 09:04] LABS: Basophils Percent Auto 0.1 % (0.2-1.2); Eosinophils Percent Auto 0.2 % (0-4.4); Hematocrit 41.3 % (42.0-52.0); Hemoglobin 13.3 g/dL (14.0-18.0); Immature Granulocyte Absolute 0.19 K/mm3 (0.00-0.031); Immature Granulocyte Percent A 1.1 % (0-0.5); Lymphocytes Absolute Auto 1.54 K/mm3 (0.9-3.2); Lymphocytes Percent Auto 9.1 % (18.3-44.2); Mean Corpuscular HGB Conc 32.2 g/dl (32-36); Mean Corpuscular Hemoglobin 30.8 pg (26-34); Mean Corpuscular Volume 95.6 fl (80-100); Mean Platelet Volume 10.5 fl (7.4-10.4); Monocytes Absolute Auto 1.7 K/mm3 (0.1-0.6); Monocytes Percent Auto 10.3 % (2.6-8.5); Neutrophils Absolute Auto 13.3 K/mm3 (1.3-6.7); Neutrophils Percent Auto 79.2 % (45.5-73.1); Platelet Count Result 159 k/mm3 (150-375); Red Blood Count 4.32 M/mm3 (4.6-6.20); Red Cell Distribution Width 13.7 % (11.5-14.5); White Blood Count 16.9 K/mm3 (4.5-10.0)
[2021-12-19] MEDS: predniSONE 20 MG TABLET 60 MG PO (09:17)
[2021-12-19] MEDS: busPIRone HCL 10 MG TABLET PO ×3 (09:18→17:31)
[2021-12-19] MEDS: FUROSEMIDE 40 MG TABLET PO (09:18)
[2021-12-19] MEDS: AMANTADINE HCL 100 MG CAPSULE PO (09:18)
[2021-12-19] MEDS: FAMOTIDINE 20 MG TABLET PO ×2 (09:19→17:32)
[2021-12-19] MEDS: TAMSULOSIN HCL 0.4 MG CAPSULE PO (09:19)
[2021-12-19] MEDS: MULTIVITAMINS THERAPEUTIC TAB (*BKC) 1 TABLET PO (09:19)
[2021-12-19] MEDS: ASPIRIN 81 MG ENTERIC TABLET PO (09:19)
[2021-12-19] MEDS: risperiDONE 1 MG TABLET PO (09:19)
[2021-12-19] MEDS: LOSARTAN POTASSIUM 50 MG TABLET PO (09:19)
[2021-12-19] MEDS: DOXYCYCLINE HYCLATE 100 MG TABLET PO (09:20)
[2021-12-19] MEDS: INSULIN GLARGINE (*BKC) 100 UNITS/ML 8 UNITS SUB-Q (09:24)
--- NOTE | 2021-12-19 11:00 | PM.DS ---
DS: Admitting Diagnosis Discharge Date 12/19/21 1100 Admitting Diagnosis CHF and COPD exacerbation DS: Discharge Diagnosis Discharge Diagnosis (1) Congestive heart failure: Qualifiers: Heart failure chronicity: acute on chronic Heart failure type: unspecified Qualified Code(s): I50.9 - Heart failure, unspecified Code(s): I50.9 - Heart failure, unspecified Status: Acute Assessment and Plan: Chest xray shows Chronic opacities in the right mid lower lung zone and left lung base corresponding to dense calcified pleural plaque on the right atelectasis/scarring on the left, cardiomegaly BNP 330 Troponins elevate, flat, related to fluid overload and hypercapnic IV Lasix 40mg IV daily Echo EF of 40-45% and moderately reduced diastolic dysfunction no significant valvular abnormality mild pulmonary hypertension 40 mm Hg Continue with losartan Trend labs Trend urine output Daily weights Status post pacemaker implantation (2) Hypercapnic respiratory failure: Qualifiers: Chronicity: unspecified Qualified Code(s): J96.92 - Respiratory failure, unspecified with hypercapnia Code(s): J96.92 - Respiratory failure, unspecified with hypercapnia Status: Acute Assessment and Plan: Chronically on oxygen at 2 L per nasal cannula history of COPD Continue inhalers Continue to trend labs Suspect COPD exacerbation and/or pneumonia Start doxycycline and Solu-Medrol still quite wheezy on examination Will check ABG and CT chest (3) Insulin dependent diabetes mellitus: Status: Chronic Assessment and Plan: current glucose 236 Accu-Cheks AC and HS sliding scale insulin A1c 6.4 Lantus 8 unit QAM, Lantus 40 units at night 4 units with meals Trend glucose adjust therapy as indicated (4) History of DVT (deep vein thrombosis): Code(s): Z86.718 - Personal history of other venous thrombosis and embolism Status: Chronic Assessment and Plan: Patient is therapeutic on his Coumadin. Daily PT INR with continuation of warfarin Monitor INR daily (5) Depression: Code(s): F32.A - Depression, unspecified Status: Chronic Assessment and Plan: Continue BuSpar (6) Bipolar disorder: Code(s): F31.9 - Bipolar disorder, unspecified Status: Chronic Assessment and Plan: Continue with risperidone (7) Generalized anxiety disorder: Code(s): F41.1 - Generalized anxiety disorder Status: Chronic Assessment and Plan: Continue with home medication. (8) Diabetic neuropathy: Code(s): E11.40 - Type 2 diabetes mellitus with diabetic neuropathy, unspecified Status: Chronic Assessment and Plan: Continue with gabapentin. (9) Obstructive sleep apnea: Code(s): G47.33 - Obstructive sleep apnea (adult) (pediatric) Status: Acute Assessment and Plan: Titrating CPAP. The patient tells me that he does not wear it but his last admission he and auto titrate CPAP (10) Leukocytosis: Code(s): D72.829 - Elevated white blood cell count, unspecified Status: Acute Assessment and Plan: WBC elevated up to 16.9 Probably related to steroids recheck decreased to 14.1 Recheck in one week post discharge DS: Summary Hospital Course Hospital Course: Patient is a 61 year old with a past medical history of CHF, COPD, GERD, diabetes who presented to the ED from his primary care providers for shortness of breath. Patient stated that he has been having some lower extremity edema and has been short of breath. Patient does wear 2 L nasal cannula hold which was increased upon admission. Patient was started IV Lasix due to the BNP of 330 and a chest x-ray that shows cardiomegaly. Echo did show an EF of 40-45% and a moderately reduced diastolic dysfunction which did in
--- NOTE | 2021-12-19 11:00 | P.DS_ITS ---
DS: Admitting Diagnosis Discharge Date 12/19/21 1100 Admitting Diagnosis CHF and COPD exacerbation DS: Discharge Diagnosis Discharge Diagnosis (1) Congestive heart failure: Qualifiers: Heart failure chronicity: acute on chronic Heart failure type: unspecified Qualified Code(s): I50.9 - Heart failure, unspecified Code(s): I50.9 - Heart failure, unspecified Status: Acute Assessment and Plan: * Chest xray shows Chronic opacities in the right mid lower lung zone and left lung base corresponding to dense calcified pleural plaque on the right atel ectasis/scarring on the left, cardiomegaly * BNP 330 * Troponins elevate, flat, related to fluid overload and hypercapnic * IV Lasix 40mg IV daily * Echo EF of 40-45% and moderately reduced diastolic dysfunction no significant valvular abnormality mild pulmonary hypertension 40 mm Hg * Continue with losartan * Trend labs * Trend urine output * Daily weights * Status post pacemaker implantation (2) Hypercapnic respiratory failure: Qualifiers: Chronicity: unspecified Qualified Code(s): J96.92 - Respiratory failure, unspecified with hypercapnia Code(s): J96.92 - Respiratory failure, unspecified with hypercapnia Status: Acute Assessment and Plan: * Chronically on oxygen at 2 L per nasal cannula * history of COPD * Continue inhalers * Continue to trend labs * Suspect COPD exacerbation and/or pneumonia * Start doxycycline and Solu-Medrol still quite wheezy on examination * Will check ABG and CT chest (3) Insulin dependent diabetes mellitus: Status: Chronic Assessment and Plan: * current glucose 236 * Accu-Cheks AC and HS * sliding scale insulin * A1c 6.4 * Lantus 8 unit QAM, Lantus 40 units at night * 4 units with meals * Trend glucose * adjust therapy as indicated (4) History of DVT (deep vein thrombosis): Code(s): Z86.718 - Personal history of other venous thrombosis and embolism Status: Chronic Assessment and Plan: * Patient is therapeutic on his Coumadin. * Daily PT INR with continuation of warfarin * Monitor INR daily (5) Depression: Code(s): F32.A - Depression, unspecified Status: Chronic Assessment and Plan: * Continue BuSpar (6) Bipolar disorder: Code(s): F31.9 - Bipolar disorder, unspecified Status: Chronic Assessment and Plan: * Continue with risperidone (7) Generalized anxiety disorder: Code(s): F41.1 - Generalized anxiety disorder Status: Chronic Assessment and Plan: * Continue with home medication. (8) Diabetic neuropathy: Code(s): E11.40 - Type 2 diabetes mellitus with diabetic neuropathy, unspecified Status: Chronic Assessment and Plan: * Continue with gabapentin. (9) Obstructive sleep apnea: Code(s): G47.33 - Obstructive sleep apnea (adult) (pediatric) Status: Acute Assessment and Plan: * Titrating CPAP. * The patient tells me that he does not wear it but his last admission he and auto titrate CPAP (10) Leukocytosis: Code(s): D72.829 - Elevated white blood cell count, unspecified Status: Acute Assessment and Plan: * WBC elevated up to 16.9 * Probably related to steroids * recheck decreased to 14.1
[2021-12-19 11:34] LABS: Alanine Aminotransferase 22 U/L (4-50); Albumin Level 4.2 g/dL (3.5-5.1); Alkaline Phosphatase 81 U/L (38-126); Aspartate Amino Transferase 31 U/L (17-59); Bilirubin,Total 0.5 mg/dL (0.2-1.3); Blood Urea Nitrogen 29 mg/dL (9-20); Calcium 9.3 mg/dL (8.4-10.2); Carbon Dioxide > 40 mmol/L (22-30); Chloride 88 mmol/L (98-107); Estimated CRCL calculation 131 ml/min; Estimated Glomerular Filt Rate > 60; Glucose 236 mg/dL (65-110); Potassium 4.4 mmol/L (3.4-5.0); Sodium 138 mmol/L (137-145)
[2021-12-19 11:56] LABS: Glucose Point of Care 213 mg/dl (65-105)
[2021-12-19] MEDS: INSULIN ASPART (*BKC) 100 UNITS/ML SUB-Q ×2 (12:35→17:30)
[2021-12-19 16:38] LABS: Glucose Point of Care 250 mg/dl (65-105)
[2021-12-19 17:03] LABS: Hematocrit 41.7 % (42.0-52.0); Hemoglobin 13.1 g/dL (14.0-18.0); Mean Corpuscular HGB Conc 31.4 g/dl (32-36); Mean Corpuscular Hemoglobin 30.9 pg (26-34); Mean Corpuscular Volume 98.3 fl (80-100); Platelet Count Result 163 k/mm3 (150-375); Red Blood Count 4.24 M/mm3 (4.6-6.20); Red Cell Distribution Width 13.7 % (11.5-14.5); White Blood Count 14.1 K/mm3 (4.5-10.0)
--- NOTE | 2021-12-20 13:25 | PC.NURSE ---
Spoke with nurse at [facility] regarding pt following up with Dr. Chirinos is 2-3 weeks. Nurse states understanding and agreement.
== END 2021-12-19 18:55 | DRG 194 ==
LOC: ANHED 17:00 → ANH3MEDSUR 20:58
PROVIDERS: Internal Medicine; Nurse Practitioner; Physician Assistant; Admitting Provider Internal Medicine; Emergency Provider Emergency Medicine; Visit Provider Nurse Practitioner
DX: I50.31 Acute diastolic (congestive) heart failure (principal); J18.9 Pneumonia, unspecified organism; J96.12 Chronic respiratory failure with hypercapnia; F31.9 Bipolar disorder, unspecified; F41.1 Generalized anxiety disorder; E11.42 Type 2 diabetes mellitus with diabetic polyneuropathy; D72.829 Elevated white blood cell count, unspecified; J44.1 Chronic obstructive pulmonary disease with (acute) exacerbation; J44.0 Chronic obstructive pulmonary disease with (acute) lower respiratory infection; I25.10 Atherosclerotic heart disease of native coronary artery without angina pectoris; D64.9 Anemia, unspecified; T38.0X5A Adverse effect of glucocorticoids and synthetic analogues, initial encounter; K21.9 Gastro-esophageal reflux disease without esophagitis; F17.210 Nicotine dependence, cigarettes, uncomplicated; Z20.822 Contact with and (suspected) exposure to COVID-19; E66.2 Morbid (severe) obesity with alveolar hypoventilation; Z68.42 Body mass index [BMI] 45.0-49.9, adult; Z86.718 Personal history of other venous thrombosis and embolism; Z99.81 Dependence on supplemental oxygen; Z79.01 Long term (current) use of anticoagulants; Z86.73 Personal history of transient ischemic attack (TIA), and cerebral infarction without residual deficits; Z95.0 Presence of cardiac pacemaker; Z95.5 Presence of coronary angioplasty implant and graft; Z87.820 Personal history of traumatic brain injury
CPT/HCPCS: 36415; 36600; 71045; 71250; 80048; 80053; 82728; 82805; 82948; 83036; 83605; 83615; 83735; 83880; 84443; 84484; 85025; 85027; 85055; 85610; 85730; 87040; 93005; 93970; 94640; 96374; 96375; 97161; 97165; 99285; A9270; C8929; C9803; G0378; G0379; J0360; J1815; J1940; J2270; J2920; J7512; Q9957; U0003; U0005

== ENCOUNTER 2021-12-30 10:21 | Inpatient (IN) | payer OTHER, SELFPAY ==
[2021-12-30] VITALS (30 sets, daily range): BP systolic 138–178; BP diastolic 73–131; PULSE 69–104; RESP 16–40; TEMP 36.2–36.9; O2SAT 79–100; BMI 36.8
--- NOTE | ~2021-12-30 | XR_ITS ---
EXAMINATION: XR chest 1V portable DATE: 12/30/2021 11:09 INDICATION: Respiratory distress. TECHNIQUE: A single frontal view of the chest was obtained. COMPARISON: Chest single view 12/19/2021, chest CT 12/17/2021 FINDINGS: There are calcified pleural plaques on the right. There are airspace opacities in right mid and lower lung zones and left lower lung zone. No pleural effusion or pneumothorax. Cardiomegaly is noted. There is a left chest wall pacer with leads in the right atrium and right ventricle. There are old healed right rib fractures. IMPRESSION: 1. Stable airspace opacities in right mid and lower lung zones and left lower lung zone, consistent w ith atelectasis/scarring versus pneumonia. 2. Cardiomegaly. Reviewed, dictated and finalized at location A. TOR TRAILER TECHNICIAN IMPRESSION: 1. Stable airspace opacities in right mid and lower lung zones and left lower l steve zone, consistent with atelectasis/scarring versus pneumonia. 2. Cardiomegaly.
--- NOTE | ~2021-12-30 | XR_ITS ---
EXAMINATION: XR barium swallow modified DATE: 01/01/2022 13:09 INDICATION: Dysphagia. TECHNIQUE: The patient was given barium-containing material of multiple consistencies to swallow by t salvador speech pathologist while I performed fluoroscopy. Fluoroscopy exposure time was 2.5 minutes. The n umber of fluoroscopy images saved to the PACS was 1. Dose-area product was 2.409 Gy-cm^2. FINDINGS: There is reduced tongue base retraction and reduced pharyngeal squeeze. There is trace vallecular and piriformis sinus residue. There is transient laryngeal penetration with large sips of thin liquid. N o aspiration. IMPRESSION: 1. Laryngeal penetration. No aspiration. 2. Please refer to the speech therapy report for recommendations. Reviewed, dictated and finalized at location A. E OPERATOR
--- NOTE | ~2021-12-30 | CT_ITS ---
EXAMINATION: CTA chest PE protocol EXAM DATE: 12/30/2021 12:57 INDICATION: Respiratory distress. TECHNIQUE: Spiral CTA of the chest (pulmonary arteries) was performed with 100 cc Omnipaque 350 intr avenous contrast injection. Images were acquired during the pulmonary arterial phase. Coronal maxi mum intensity projection 3D-reconstructions were created by the technologist on dedicated workstation . Axial, coronal and sagittal reformatted images were reviewed. The dose-length product (DLP) for t his examination was 1035.09 mGy-cm. The exposure was tailored according to patient size (auto mA ex posure control), and iterative reconstruction (ASIR) was used as additional dose reduction technique. Comparison is made to prior examination from 12/17/2021. FINDINGS: The main, central pulmonary arteries are dilated which can indicate elevated pulmonary andra rial pressure, pulmonary arterial hypertension. Pulmonary arteries are well opacified and without i ntraluminal filling defects. No thoracic aortic dissection. There is interval development of small to moderate amount of right-sided upper lobe predominant airspace disease appearance most consistent with pneumonia. There is some mucous within the bronchus intermedius, also has developed compared to prior study. Chronic right pleural calcifications unchanged. No mediastinal lymphadenopathy. There is 3 mm right calyceal stone. IMPRESSION: 1. Development of small to moderate amount of right-sided airspace disease most consistent with pneu monia, less likely asymmetric edema. 2. Cardiomegaly, dilated pulmonary arteries. 3. No pulmonary emboli. Reviewed, dictated and finalized at [facility]. [facility] IMPRESSION: 1. Development of small to moderate amount of right-sided airspace disease mos t consistent with pneumonia, less likely asymmetric edema. 2. Cardiomegaly, dilated pulmonary arteries. 3. No pulmonary emboli.
--- NOTE | ~2021-12-30 | CT_ITS ---
EXAMINATION: CT brain wo con DATE: 12/30/2021 12:56 INDICATION: Altered mental status. Confusion. TECHNIQUE: Computed tomography (CT) of the head was performed without intravenous contrast. The mA wa s adjusted according to patient size. Iterative reconstruction technique was employed. Exam dose: 60 5.33 mGy-cm total exam DLP. COMPARISON: 11/26/2020 CT brain FINDINGS: There are prominent bilateral vertebral artery calcifications as well as basilar artery and prominent bilateral carotid siphon internal carotid artery calcifications. There is nonspecific patchy diminished attenuation of the subcortical and periventricular cerebral wh ite matter, likely due to chronic small vessel ischemic changes. Chronic bilateral basal ganglia and thalamic lacunar infarcts are again noted. No intracranial mass lesion or hemorrhage or recent cerebrovascular accident is evident. No midline s hift or mass effect. No subdural or epidural hematoma. The mastoid air cells and included paranasal sinuses are unremarkable. No fracture or bone destruction of the cranial vault. IMPRESSION: Cerebral atherosclerosis and chronic small vessel ischemic changes of the cerebral white matter Chronic bilateral basal ganglia and thalamic lacunar infarcts No acute intracranial finding Reviewed, dictated and finalized at [facility]. Reviewed, dictated and finalized at [facility]. IC ADDRESS ANNOUNCER
--- NOTE | 2021-12-30 10:33 | ECG_ITS ---
Measurements Intervals [place] Rate: 87 P: [place]: 0 QRS: -58 QRSD: 153 T: 150 QT: 370 QTc: 446 Interpretive Statements ATRIAL FLUTTER RIGHT BUNDLE BRANCH BLOCK [120+ ms QRS DURATION, UPRIGHT V1, 40+ ms S IN I/aVL/V4/V5/V6] LEFT ANTERIOR FASCICULAR BLOCK [QRS AXIS <= -45, QR IN I, RS IN II] POSSIBLE ANTERIOR MYOCARDIAL INFARCTION , OF INDETERMINATE AGE [30 ms Q WAVE IN V3/V4, OR R < 0.2 mV IN V4] MODERATE T-WAVE ABNORMALITY, CONSIDER LATERAL ISCHEMIA [-0.1+ mV T WAVE IN I/aVL/V5/V6] ABNORMAL ECG Electronically Signed On 12-30-2021 10:42:22 ENERGY ECONOMIST by Luis Howell M.D.
[2021-12-30] MEDS: NITROGLYCERIN OINTMENT 1 INCH DOSE TRANSDERM (10:45)
[2021-12-30 10:50] LABS: Alveolar/Arterial O2 Gradient 168.9 mmHg; Base Excess ABG 15.1 mEq/l (+/-2.0); Carboxyhemoglobin 0.6 % THb (0-2.0); Fractional Inspired Oxygen 50 %; HCO3 ABG 43.8 mEq/l (22.0-26.0); Methemoglobin ABG 0.1 %THb (0-1.5); Oxygen Content ABG 16.5 %vol (16.0-22.0); Oxygen Saturation ABG 97.1 % (95.0-100.0); PO2 ABG 100.1 mmHg (80.0-100.0); Reduced Hemoglobin 3.3 %THb (0-5.0); Total Hemoglobin 12.1 g/dL (12.0-18.0); pH ABG 7.368 (7.350-7.450)
[2021-12-30 10:51] LABS: Device BIPAP; Modified Allen's Test Pass; PCO2 ABG 77.8 mmHg (35.0-45.0); Site Drawn RIGHT RADIAL
[2021-12-30 10:52] LABS: Expiratory Pressure 6 cmH2O; Inspiratory Pressure 12 cmH2O
[2021-12-30] MEDS: IPRATROPIUM BR 0.02% INH SOLN 0.5 MG/2.5 ML VIAL 1 MG INHALATION (10:54)
[2021-12-30] MEDS: ALBUTEROL SULFATE NEB 2.5 MG/0.5 ML INH 10 MG INHALATION (10:55)
[2021-12-30 11:12] LABS: Basophils Percent Auto 0.2 % (0.2-1.2); Eosinophils Absolute Auto 0.1 K/mm3 (0-0.3); Eosinophils Percent Auto 0.9 % (0-4.4); Hematocrit 40.2 % (42.0-52.0); Hemoglobin 11.6 g/dL (14.0-18.0); Immature Granulocyte Absolute 0.04 K/mm3 (0.00-0.031); Immature Granulocyte Percent A 0.4 % (0-0.5); Immature Platelet Fraction Pct 3.8 % (0.9-11.2); Lymphocytes Absolute Auto 0.74 K/mm3 (0.9-3.2); Lymphocytes Percent Auto 8.2 % (18.3-44.2); Mean Corpuscular HGB Conc 28.9 g/dl (32-36); Mean Corpuscular Hemoglobin 30.7 pg (26-34); Mean Corpuscular Volume 106.3 fl (80-100); Mean Platelet Volume 10.1 fl (7.4-10.4); Monocytes Absolute Auto 0.7 K/mm3 (0.1-0.6); Monocytes Percent Auto 7.6 % (2.6-8.5); Neutrophils Absolute Auto 7.4 K/mm3 (1.3-6.7); Neutrophils Percent Auto 82.7 % (45.5-73.1); Platelet Count Result 157 k/mm3 (150-375); Red Blood Count 3.78 M/mm3 (4.6-6.20); Red Cell Distribution Width 13.2 % (11.5-14.5)
[2021-12-30 11:20] LABS: INR 2.2; Prothrombin Time 23.9 Seconds (11.1-14.7)
[2021-12-30 11:21] LABS: Lactic Acid Reflex 0.7 mmol/L (0.7-2.1); Partial Thromboplastin Time 37.7 SECONDS (22.3-36.8)
[2021-12-30 11:25] LABS: Alanine Aminotransferase 18 U/L (4-50); Albumin Level 3.9 g/dL (3.5-5.1); Alkaline Phosphatase 84 U/L (38-126); Aspartate Amino Transferase 24 U/L (17-59); Bilirubin,Total 0.6 mg/dL (0.2-1.3); Blood Urea Nitrogen 18 mg/dL (9-20); Calcium 8.6 mg/dL (8.4-10.2); Carbon Dioxide > 40 mmol/L (22-30); Chloride 88 mmol/L (98-107); Estimated CRCL calculation 107 ml/min; Estimated Glomerular Filt Rate > 60; Glucose 176 mg/dL (65-110); Potassium 4.3 mmol/L (3.4-5.0); Sodium 140 mmol/L (137-145)
[2021-12-30 11:27] LABS: Platelet Estimate Adequate (Adequate)
[2021-12-30 11:28] LABS: Anisocytosis 1+ (NORMAL); Ovalocytes 1+ (NORMAL); Stomatocytes 1+ (NORMAL)
[2021-12-30 11:32] LABS: NT Pro B Type Natriuretic Pept 408 pg/mL (5-100); Troponin I 0.034 ng/mL (0.000-0.034)
[2021-12-30 11:51] LABS: SARS-CoV-2 RNA PCR Negative
[2021-12-30] MEDS: methylPREDNISolone SOD SUCC 125 MG VIAL IV PUSH (12:18)
[2021-12-30] MEDS: FUROSEMIDE INJ 40 MG/4 ML VIAL IV PUSH (12:18)
--- NOTE | 2021-12-30 14:05 | ED.SOB ---
HPI - SOB/Dyspnea General Chief Complaint: Shortness of Breath/Dyspnea Stated Complaint: SOB Time Seen by Provider: 12/30/21 10:26 Source: patient and EMS Mode of arrival: EMS Limitations: other (patient difficulty to understand ) History of Present Illness HPI Narrative: This is a 61 year old male with history hypertension, cHf, DM, COPD who presents for evaluation of respiratory distress. EMS reports patient has been having difficulty breath for 2 days. Patient was in distress and 80% on room air, so EMS placed patient on CPAP. Patient is still having difficulty breathing but he denies chest pain. Patient's records shows he has been placed on antibiotics for pneumonia. PAtient is oriented to person, place and age. He states he does not want to be intubated. Related Data Home Medications Medication Instructions Recorded Confirmed Basaglar KwikPen U-100 Insulin 8 unit SUBCUT DAILY 11/26/20 12/15/21 amantadine HCl 100 mg PO DAILY 11/26/20 12/15/21 aspirin 81 mg PO DAILY 11/26/20 12/15/21 atorvastatin 10 mg PO HS 11/26/20 12/15/21 diltiazem HCl 120 mg PO DAILY 11/26/20 12/15/21 furosemide [Lasix] 40 mg PO DAILY 11/26/20 12/15/21 losartan 50 mg PO DAILY 11/26/20 12/15/21 risperidone 1 mg PO DAILY 11/26/20 12/15/21 trazodone 50 mg PO HS 11/26/20 12/15/21 Lantus Solostar U-100 Insulin 40 unit SUBCUT HS 12/15/21 12/15/21 Novolin R Flexpen 4 unit SUBCUT TIDWMEAL 12/15/21 12/15/21 albuterol sulfate 2 puff INHALATION Q4H 12/15/21 12/16/21 buspirone 10 mg PO TID 12/15/21 12/15/21 ergocalciferol (vitamin D2) 1 unit PO MONTHLY 12/15/21 12/15/21 famotidine 20 mg PO BID 12/15/21 12/15/21 gabapentin 300 mg PO HS 12/15/21 12/15/21 nystatin [Nystop] 1 applic TOPICAL DAILY PRN 12/15/21 12/15/21 polyethylene glycol 3350 17 g PO DAILY PRN 12/15/21 12/15/21 sennosides-docusate sodium 1 tablet PO BID PRN 12/15/21 12/15/21 [Senexon-S] tamsulosin 0.4 mg PO DAILY 12/15/21 12/15/21 warfarin 6 mg PO HS 12/15/21 12/15/21 multivitamin [Daily-Isidro] 1 tablet PO DAILY 12/16/21 12/16/21 Allergies Allergy/AdvReac Type Severity Reaction Status Date / Time acetaminophen Allergy Unknown Unknown Verified 12/30/21 10:41 Review of Systems Review of Systems: ROS unobtainable: Yes other (difficult poor historian) Cardiovascular: Cardiovascular: Denies chest pain and Denies radiating jaw, neck or arm pain Respiratory: Respiratory: Reports cough and Reports dyspnea Gastrointestinal: Gastrointestinal: Denies nausea Neurologic: Denies headache(s) [facility] Past Medical History Medical History (Updated 12/30/21 @ 18:22 by Zakia Negron MD) Bipolar disorder Cerebrovascular accident Chronic anticoagulation Chronic obstructive pulmonary disease Chronic respiratory failure with hypoxia and hypercapnia Combined systolic and diastolic congestive heart failure Echocardiogram on 12/16/2021 showed a mildly enlarged LV chamber, [id number] reduced left ventricular systolic function with an EF estimated 40 to 45%, and abnormal diastolic function. Coronary artery disease Deep venous thrombosis Depression Diabetic neuropathy Generalized anxiety disorder History of trauma Traumatic brain injury years ago after a fall. Insulin dependent diabetes mellitus Mild pulmonary hypertension Estimated pulmonary arterial systolic pressure was 40 mmHg on echocardiogram in November 2021. Obstructive sleep apnea Noncompliant with BiPAP. On 2 L nasal cannula at nighttime. Paroxysmal atrial fibrillation Transient ischemic attack Surgical History Surgical History (Updated 12/30/21 @ 15:13 by Lisa Griffin PA-C) History of coronary artery stent placement History of open reduction and internal fixation (ORIF) procedure Repair of right lower extremity and left shoulder fractures. History of pacemaker History of tracheostomy Family History Family History Other Cancer Social History
--- NOTE | 2021-12-30 15:16 | PC.NURSE ---
Report received by CATHI Fischer with the ED department at 1514. Patient to go to room 203.
--- NOTE | 2021-12-30 16:45 | PM.IMHP ---
H&P: HPI History of Present Illness Date/Time: 12/30/21 16:45 Chief Complaint: Shortness of breath. Narrative: This is a 61-year-old male with chronic respiratory failure with hypoxia and hypercarbia, obstructive sleep apnea, chronic obstructive pulmonary disease, systolic and diastolic congestive heart failure, hypertension, type 2 diabetes mellitus, untreated obstructive sleep apnea, and history of traumatic brain injury who presented to the emergency department via EMS for evaluation of shortness of breath. He is a pretty good historian however his speech is difficult to understand at baseline and as such some of the following is obtained via a review of his electronic medical records. He endorses chronic dyspnea on exertion which has been worse over the past couple of days and he has also developed a nonproductive cough. While he does not wear a CPAP at nighttime, he does wear 2 L and is my understanding that this morning his SpO2 was in the low 90s and EMS was summoned. ABG done in the emergency department showed hypercarbia though he was compensated. Given his work of breathing he was started on BiPAP however. Chest x-ray today showed the development of a small to moderate amount of right-sided airspace disease and he is being admitted in this setting. At the time my evaluation he is quite anxious but he is able to be calmed and redirected and a sitter is at bedside. He has not had exertional chest pain but he does report a tightness in the low sternal region. His appetite has been good and he denies nausea, vomiting, and diarrhea. To his knowledge she has not had a fever and he also denies chills and sweats. He has a roommate at the alf who has had similar symptoms. SARS-CoV-2 by PCR was negative today. Review of Systems Review of Systems: Twelve systems were reviewed. No headache or neck ache. He denies sinus congestion and sore throat. No exertional chest pain. No palpitations or sensation of racing heart. He denies dysuria and he has not noticed a decrease in urine output though his bladder feel significantly distended on exam. He denies dysphagia and concerns for aspiration. Except as documented, all other systems were reviewed and are negative. [facility] Past Medical History Medical History (Updated 12/30/21 @ 23:03 by Lisa Griffin PA-C) Bipolar disorder Cerebrovascular accident Chronic anticoagulation Chronic obstructive pulmonary disease Chronic respiratory failure with hypoxia and hypercapnia Combined systolic and diastolic congestive heart failure Echocardiogram on 12/16/2021 showed a mildly enlarged LV chamber, [id number] reduced left ventricular systolic function with an EF estimated 40 to 45%, and abnormal diastolic function. Coronary artery disease Deep venous thrombosis Depression Diabetic neuropathy Generalized anxiety disorder History of trauma Traumatic brain injury years ago after a fall. Insulin dependent diabetes mellitus Mild pulmonary hypertension Estimated pulmonary arterial systolic pressure was 40 mmHg on echocardiogram in November 2021. Obstructive sleep apnea Noncompliant with BiPAP. On 2 L nasal cannula at nighttime. Paroxysmal atrial fibrillation Paroxysmal atrial flutter Transient ischemic attack Surgical History Surgical History (Updated 12/30/21 @ 15:13 by Lisa Griffin PA-C) History of coronary artery stent placement History of open reduction and internal fixation (ORIF) procedure Repair of right lower extremity and left shoulder fractures. History of pacemaker History of tracheostomy Family History Family History Other Cancer Social History Social History Social History: Resident at [facility] [employer]. He is and has 1 child. On disability since his traumatic brain injury. He smoked up to 2 packs of cigarettes a day but is now down to about a
[2021-12-30 17:16] LABS: Glucose Point of Care 227 mg/dl (65-105)
--- NOTE | 2021-12-30 17:38 | ADMGEN ---
This patient, Jp Morley, was admitted to IMU Room 203-01 at 1540 from ED. Patient/family oriented to hospital policies and general routines including ID bracelet, bed and alarms, visiting hours, pain management, procedures, bathroom and other care routines, personal items, smoking policy, room service/diet, and visiting hours. Information on how to activate the Rapid Response Team has been discussed. Patient/Family are encouraged to report perceived risks to care and to ask questions if they do not understand what they are told or what they should do.
--- NOTE | 2021-12-30 18:54 | PC.NURSE ---
Patient bladder scanned at 1830. Greater than 825 mls present in bladder. made aware.
[2021-12-30 19:32] LABS: Alveolar/Arterial O2 Gradient 120.6 mmHg; Base Excess ABG 17.5 mEq/l (+/-2.0); Carboxyhemoglobin 0.1 % THb (0-2.0); Fractional Inspired Oxygen 40 %; HCO3 ABG 45.8 mEq/l (22.0-26.0); Methemoglobin ABG 0.3 %THb (0-1.5); Oxygen Content ABG 16.8 %vol (16.0-22.0); Oxygen Saturation ABG 95.1 % (95.0-100.0); PO2 ABG 78.8 mmHg (80.0-100.0); PO2 FiO2 Ratio Arterial Blood 1.97 %; Reduced Hemoglobin 4.6 %THb (0-5.0); Total Hemoglobin 12.5 g/dL (12.0-18.0); pH ABG 7.406 (7.350-7.450)
[2021-12-30 19:36] LABS: PCO2 ABG 74.6 mmHg (35.0-45.0)
[2021-12-30 19:37] LABS: Device NON-INVASIVE VENT; Modified Allen's Test Pass; Site Drawn LEFT RADIAL
[2021-12-30 19:38] LABS: Non-Invasive Expiratory Pressure 6 CMH2O; Non-Invasive Inspiratory Pressure 12 CMH2O; Non-Invasive Vent Rate 16 /MIN
[2021-12-30 20:27] LABS: Glucose Point of Care 284 mg/dl (65-105)
--- NOTE | 2021-12-30 23:41 | PC.NURSE ---
Spoke to Lisa WHALEY regarding patient's anxiety, kicking feet, wanting to eat, yelling. Advised to place him on a nasal cannula and feed him. Then place back on Bipap for night time.
--- NOTE | 2021-12-30 23:57 | PC.NURSE ---
Patient continues to yell, bangs the side rails, kicks feet. Difficult to understand what he is saying. I called Lisa WHALEY. Will add home Trazodone and Buspirone. O2 Sat 96% on Bipap. Not pulling off Bipap.
[2021-12-31] VITALS (26 sets, daily range): BP systolic 138–171; BP diastolic 76–113; PULSE 69–128; RESP 16–32; TEMP 36.4–36.7; O2SAT 90–96
[2021-12-31] MEDS: busPIRone HCL 10 MG TABLET PO ×4 (00:07→17:06)
[2021-12-31] MEDS: traZODone HCL 50 MG TABLET PO ×2 (00:07→20:00)
--- NOTE | 2021-12-31 01:04 | PC.NURSE ---
Patient still yelling, wants Bipap off, trying to climb out of bed. Bipap removed, placed on a 4L nasal cannula. Discussed earlier with Lisa WHALEY. Sitter at bedside and bed alarm on.
--- NOTE | 2021-12-31 01:19 | PC.NURSE ---
Patient continues to be unmanageable. I called Dr. Hayes. Orders for Ativan 1mg IVP and Haldol 5MG IM.
[2021-12-31] MEDS: LORazepam INJ (*CRX) 2 MG/ML VIAL 1 MG IV PUSH (01:30)
[2021-12-31] MEDS: HALOPERIDOL LACTATE 5 MG/ML VIAL IM (01:30)
[2021-12-31] MEDS: IPRATROPIUM BR 0.02% INH SOLN 0.5 MG/2.5 ML VIAL INHALATION ×3 (02:15→20:40)
[2021-12-31] MEDS: ALBUTEROL SULFATE NEB 2.5 MG/0.5 ML INH INHALATION ×5 (02:15→20:40)
--- NOTE | 2021-12-31 02:51 | PC.NURSE ---
Report given to Sloane Seo RN. She will take over care of this patient.
[2021-12-31 05:50] LABS: Hematocrit 34.1 % (42.0-52.0); Hemoglobin 10.3 g/dL (14.0-18.0); Immature Granulocyte Absolute 0.03 K/mm3 (0.00-0.031); Immature Granulocyte Percent A 0.4 % (0-0.5); Lymphocytes Absolute Auto 0.43 K/mm3 (0.9-3.2); Lymphocytes Percent Auto 5.4 % (18.3-44.2); Mean Corpuscular HGB Conc 30.2 g/dl (32-36); Mean Corpuscular Hemoglobin 30.5 pg (26-34); Mean Corpuscular Volume 100.9 fl (80-100); Mean Platelet Volume 9.6 fl (7.4-10.4); Monocytes Absolute Auto 0.5 K/mm3 (0.1-0.6); Monocytes Percent Auto 6.2 % (2.6-8.5); Platelet Count Result 133 k/mm3 (150-375); Red Blood Count 3.38 M/mm3 (4.6-6.20); Red Cell Distribution Width 13.1 % (11.5-14.5); White Blood Count 7.9 K/mm3 (4.5-10.0)
[2021-12-31 06:00] LABS: Alanine Aminotransferase 17 U/L (4-50); Albumin Level 3.5 g/dL (3.5-5.1); Alkaline Phosphatase 69 U/L (38-126); Aspartate Amino Transferase 21 U/L (17-59); Bilirubin,Total 0.6 mg/dL (0.2-1.3); Blood Urea Nitrogen 21 mg/dL (9-20); Calcium 8.6 mg/dL (8.4-10.2); Carbon Dioxide > 40 mmol/L (22-30); Chloride 89 mmol/L (98-107); Estimated CRCL calculation 136 ml/min; Estimated Glomerular Filt Rate > 60; Glucose 203 mg/dL (65-110); Magnesium 1.8 mg/dL (1.6-2.3); Potassium 4.2 mmol/L (3.4-5.0); Sodium 139 mmol/L (137-145)
[2021-12-31 06:50] LABS: Thyroid Stimulating Hormone Reflex 0.039 uIU/mL (0.465-4.68)
[2021-12-31 07:32] LABS: Free T4 Free Thyroxine Reflex 1.01 ng/dL (0.78-2.19)
[2021-12-31 08:28] LABS: Total Triiodothyronine (T3) 0.99 NG/ML (0.97-1.69)
[2021-12-31] MEDS: INSULIN HUMAN REGULAR (*BKC) 100 UNITS/ML SUB-Q ×3 (08:36→17:06)
[2021-12-31] MEDS: INSULIN GLARGINE (*BKC) 100 UNITS/ML 8 UNITS SUB-Q (08:37)
[2021-12-31] MEDS: risperiDONE 1 MG TABLET PO (08:42)
[2021-12-31] MEDS: ASPIRIN 81 MG ENTERIC TABLET PO (08:42)
[2021-12-31] MEDS: TAMSULOSIN HCL 0.4 MG CAPSULE PO (08:43)
[2021-12-31] MEDS: FUROSEMIDE 40 MG TABLET PO (08:43)
[2021-12-31] MEDS: FAMOTIDINE 20 MG TABLET PO ×2 (08:43→17:06)
[2021-12-31] MEDS: LOSARTAN POTASSIUM 50 MG TABLET PO (08:43)
[2021-12-31] MEDS: AMANTADINE HCL 100 MG CAPSULE PO (08:43)
[2021-12-31] MEDS: MULTIVITAMINS THERAPEUTIC TAB (*BKC) 1 TABLET PO (08:43)
[2021-12-31] MEDS: predniSONE 20 MG TABLET 60 MG PO (08:44)
[2021-12-31 09:32] LABS: Glucose Point of Care 149 mg/dl (65-105)
--- NOTE | 2021-12-31 10:28 | PCSTNOTE ---
Attempted bedside swallow evaluation, RN present and requested I return later as the patient just went on BiPap and was asleep.
--- NOTE | 2021-12-31 11:23 | PM.IMPN ---
Progress Note: A&P Assessment and Plan (1) Acute on chronic respiratory failure with hypoxia and hypercapnia: Code(s): J96.21 - Acute and chronic respiratory failure with hypoxia; J96.22 - Acute and chronic respiratory failure with hypercapnia Status: Acute Assessment and Plan: Secondary to COPD exacerbation. We discussed the importance of him using his BiPAP at nighttime though it causes him much anxiety and he just does not tolerate it. ABG demonstrates compensated respiratory acidosis. 12/31/2021 Interval history: patient with history of COPD and hypercapnic respiratory failure who had been refusing to use CPAP at home and presented with elevated CO2, currently on BiPAP, has no new complaints, will repeat ABG and further recommendation to follow, will continue present management with IV Lasix and prednisone. (2) Pneumonia involving right lung: Code(s): J18.9 - Pneumonia, unspecified organism Status: Acute Assessment and Plan: Continue azithromycin and ceftriaxone, pending sputum culture. SARS-CoV-2 by PCR was negative. (3) Abnormal EKG: Code(s): R94.31 - Abnormal electrocardiogram [ECG] [EKG] Status: Acute Assessment and Plan: EKG shows T-wave inversions in the lateral leads. An echocardiogram done a couple of weeks ago showed nyfu-uw-[id number] reduced LV systolic function with an EF estimated at 40 to 45% with left ventricular septal wall motion abnormality related to pacing. Patient is not having any chest pain currently. Would benefit from cardiac evaluation. (4) Atrial flutter: Code(s): I48.92 - Unspecified atrial flutter Status: Acute Assessment and Plan: Rate controlled. INR is therapeutic. (5) COPD exacerbation: Code(s): J44.1 - Chronic obstructive pulmonary disease with (acute) exacerbation Status: Acute Assessment and Plan: He has been started on scheduled bronchodilators and steroids. (6) Chronic anticoagulation: Code(s): Z79.01 - correction (current) use of anticoagulants Status: Acute Assessment and Plan: INR is therapeutic and will be monitored. (7) Combined systolic and diastolic congestive heart failure: Code(s): I50.40 - Unspecified combined systolic (congestive) and diastolic (congestive) heart failure Status: Acute Assessment and Plan: Clinically compensated this time. Monitor volume status closely. (8) Insulin dependent diabetes mellitus: Status: Chronic Assessment and Plan: Continue basal insulin. Initiate sliding scale insulin, Accu-Cheks, and hypoglycemic protocol. Recent A1c was 6.4%. Subjective Date/time seen: 12/31/21 11:23 Chief Complaint: Shortness of breath. HPI-Narrative: This is a 61-year-old male with chronic respiratory failure with hypoxia and hypercarbia, obstructive sleep apnea, chronic obstructive pulmonary disease, systolic and diastolic congestive heart failure, hypertension, type 2 diabetes mellitus, untreated obstructive sleep apnea, and history of traumatic brain injury who presented to the emergency department via EMS for evaluation of shortness of breath. He is a pretty good historian however his speech is difficult to understand at baseline and as such some of the following is obtained via a review of his electronic medical records. He endorses chronic dyspnea on exertion which has been worse over the past couple of days and he has also developed a nonproductive cough. While he does not wear a CPAP at nighttime, he does wear 2 L and is my understanding that this morning his SpO2 was in the low 90s and EMS was summoned. ABG done in the emergency department showed hypercarbia though he was compensated. Given his work of breathing he was started on BiPAP however. Chest x-ray today showed the development of a small to moderate amount of right-sided airspace disease and he is being admitted in this setting. At the time my evaluation h
[2021-12-31 11:25] LABS: Glucose Point of Care 173 mg/dl (65-105)
[2021-12-31 12:24] LABS: Alveolar/Arterial O2 Gradient 140.4 mmHg; Base Excess ABG 17.1 mEq/l (+/-2.0); Fractional Inspired Oxygen 40 %; HCO3 ABG 44.4 mEq/l (22.0-26.0); Oxygen Content ABG 15.3 %vol (16.0-22.0); Oxygen Saturation ABG 93.2 % (95.0-100.0); Oxyhemoglobin 92.5 % THb (90.0-100.0); PO2 ABG 67.1 mmHg (80.0-100.0); PO2 FiO2 Ratio Arterial Blood 1.68 %; Total Hemoglobin 11.7 g/dL (12.0-18.0); pH ABG 7.435 (7.350-7.450)
--- NOTE | 2021-12-31 12:29 | PCSTNOTE ---
Checked in with nursing and to see the patient x2 after initial attempt. The patient woke for 1-2 questions and completed 1-2 oral mechanism evaluation items prior to falling asleep again. Respiratory therapist reported sending the results from her testing to nursing today to determine if the patient can come off of BiPap. Will attempt bedside swallow evaluation tomorrow.
[2021-12-31 12:30] LABS: Device NON-INVASIVE VENT; PCO2 ABG 67.6 mmHg (35.0-45.0); Site Drawn LEFT RADIAL
[2021-12-31 12:31] LABS: Non-Invasive Expiratory Pressure 6 CMH2O; Non-Invasive Inspiratory Pressure 12 CMH2O; Non-Invasive Vent Rate 16 /MIN
[2021-12-31 16:05] LABS: Glucose Point of Care 211 mg/dl (65-105)
[2021-12-31] MEDS: WARFARIN (*PBKC) 3 MG TABLET 6 MG PO (17:06)
[2021-12-31] MEDS: CYCLOBENZAPRINE HCL 5 MG TABLET PO (18:58)
[2021-12-31] MEDS: GABAPENTIN 300 MG CAPSULE PO (19:57)
[2021-12-31] MEDS: ATORVASTATIN 10 MG TABLET PO (19:57)
[2021-12-31] MEDS: INSULIN GLARGINE (*BKC) 100 UNITS/ML 40 UNITS SUB-Q (19:59)
[2022-01-01] VITALS (28 sets, daily range): BP systolic 141–162; BP diastolic 81–95; PULSE 69–106; RESP 16–32; TEMP 35.4–36.7; O2SAT 89–95
[2022-01-01] MEDS: ALBUTEROL SULFATE NEB 2.5 MG/0.5 ML INH INHALATION ×4 (02:30→19:46)
[2022-01-01] MEDS: IPRATROPIUM BR 0.02% INH SOLN 0.5 MG/2.5 ML VIAL INHALATION ×4 (02:30→19:46)
[2022-01-01 08:19] LABS: Glucose Point of Care 89 mg/dl (65-105)
[2022-01-01] MEDS: busPIRone HCL 10 MG TABLET PO ×3 (10:33→18:29)
[2022-01-01] MEDS: ASPIRIN 81 MG ENTERIC TABLET PO (10:33)
[2022-01-01] MEDS: LOSARTAN POTASSIUM 50 MG TABLET PO (10:33)
[2022-01-01] MEDS: AMANTADINE HCL 100 MG CAPSULE PO (10:34)
[2022-01-01] MEDS: MULTIVITAMINS THERAPEUTIC TAB (*BKC) 1 TABLET PO (10:34)
[2022-01-01] MEDS: risperiDONE 1 MG TABLET PO (10:34)
[2022-01-01] MEDS: FAMOTIDINE 20 MG TABLET PO ×2 (10:34→16:01)
[2022-01-01] MEDS: predniSONE 20 MG TABLET 60 MG PO (10:34)
[2022-01-01] MEDS: TAMSULOSIN HCL 0.4 MG CAPSULE PO (10:34)
[2022-01-01] MEDS: FUROSEMIDE INJ 40 MG/4 ML VIAL IV PUSH ×2 (10:44→16:01)
[2022-01-01] MEDS: INSULIN GLARGINE (*BKC) 100 UNITS/ML 8 UNITS SUB-Q (10:44)
--- NOTE | 2022-01-01 10:47 | PCSTNOTE ---
Please refer to the Bedside Swallow Evaluation in the EMR. Please note, silent aspiration cannot be ruled out at bedside. A Modified Barium Swallow Study is recommended to rule out or confirm aspiration.
--- NOTE | 2022-01-01 10:50 | PM.IMPN ---
Progress Note: A&P Assessment and Plan (1) Acute on chronic respiratory failure with hypoxia and hypercapnia: Code(s): J96.21 - Acute and chronic respiratory failure with hypoxia; J96.22 - Acute and chronic respiratory failure with hypercapnia Status: Acute Assessment and Plan: Secondary to COPD exacerbation. We discussed the importance of him using his BiPAP at nighttime though it causes him much anxiety and he just does not tolerate it. ABG demonstrates compensated respiratory acidosis. 12/31/2021 Interval history: patient with history of COPD and hypercapnic respiratory failure who had been refusing to use CPAP at home and presented with elevated CO2, currently on BiPAP, has no new complaints, will repeat ABG and further recommendation to follow, will continue present management with IV Lasix and prednisone. 01/01/2022 Interval history: patient with history of COPD and hypercapnic respiratory failure who had been refusing to use CPAP at home and presented with elevated CO2, was placed on BiPAP upon arrival, repeat showed improvement, currently patient is off BIPAP, on 6L NC and stating 94%, will continue present management with IV Lasix and prednisone. Will reassess and plan (2) Pneumonia involving right lung: Code(s): J18.9 - Pneumonia, unspecified organism Status: Acute Assessment and Plan: Continue azithromycin and ceftriaxone, pending sputum culture. SARS-CoV-2 by PCR was negative. (3) Abnormal EKG: Code(s): R94.31 - Abnormal electrocardiogram [ECG] [EKG] Status: Acute Assessment and Plan: EKG shows T-wave inversions in the lateral leads. An echocardiogram done a couple of weeks ago showed [id number]-[id number]-toslqhvdxx reduced LV systolic function with an EF estimated at 40 to 45% with left ventricular septal wall motion abnormality related to pacing. Patient is not having any chest pain currently. Would benefit from cardiac evaluation. (4) Atrial flutter: Code(s): I48.92 - Unspecified atrial flutter Status: Acute Assessment and Plan: Rate controlled. INR is therapeutic. (5) COPD exacerbation: Code(s): J44.1 - Chronic obstructive pulmonary disease with (acute) exacerbation Status: Acute Assessment and Plan: He has been started on scheduled bronchodilators and steroids. 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 (7) Combined systolic and diastolic congestive heart failure: Code(s): I50.40 - Unspecified combined systolic (congestive) and diastolic (congestive) heart failure Status: Acute Assessment and Plan: Clinically compensated this time. Monitor volume status closely. (8) Insulin dependent diabetes mellitus: Status: Chronic Assessment and Plan: Continue basal insulin. Initiate sliding scale insulin, Accu-Cheks, and hypoglycemic protocol. Recent A1c was 6.4%. Subjective Date/time seen: 01/01/22 10:50 Secondary to COPD exacerbation. We discussed the importance of him using his BiPAP at nighttime though it causes him much anxiety and he just does not tolerate it. ABG demonstrates compensated respiratory acidosis. 12/31/2021 Interval history: patient with history of COPD and hypercapnic respiratory failure who had been refusing to use CPAP at home and presented with elevated CO2, currently on BiPAP, has no new complaints, will repeat ABG and further recommendation to follow, will continue present management with IV Lasix and prednisone. 01/01/2022 Interval history: patient with history of COPD and hypercapnic respiratory failure who had been refusing to use CPAP at home and presented with elevated CO2, was placed on BiPAP upon arrival, repeat showed improvement, currently patient is off BIPAP, on 6L NC and stating 94%, will continue present management w
[2022-01-01 12:39] LABS: Glucose Point of Care 154 mg/dl (65-105)
--- NOTE | 2022-01-01 13:31 | PCSTNOTE ---
Please refer to the Modified Barium Swallow Evaluation in the EMR. No further ST is indicated as the patient tolerates regular solids and thin liquids.
[2022-01-01 15:49] LABS: Glucose Point of Care 191 mg/dl (65-105)
[2022-01-01] MEDS: CYCLOBENZAPRINE HCL 5 MG TABLET PO (16:00)
[2022-01-01] MEDS: WARFARIN (*PBKC) 3 MG TABLET 6 MG PO (18:31)
[2022-01-01] MEDS: INSULIN HUMAN REGULAR (*BKC) 100 UNITS/ML SUB-Q (18:38)
--- NOTE | 2022-01-01 19:14 | PC.NURSE ---
PATIENT TOLERATED 4 LITERS PER NASAL CANNULA WELL, NO DISTRESS, NO DECREASE IN OXYGEN SATURATION, OFF BIPAP AT 0800 THIS AM UNTIL SHIFT CHANGE, REPORT GIVEN TO ONCOMING RN. DOING GREAT ON INCENTIVE SPIROMETER
[2022-01-01 19:58] LABS: Glucose Point of Care 311 mg/dl (65-105)
[2022-01-01] MEDS: GABAPENTIN 300 MG CAPSULE PO (21:03)
[2022-01-01] MEDS: traZODone HCL 50 MG TABLET PO (21:03)
[2022-01-01] MEDS: ATORVASTATIN 10 MG TABLET PO (21:04)
[2022-01-01] MEDS: INSULIN GLARGINE (*BKC) 100 UNITS/ML 40 UNITS SUB-Q (21:04)
[2022-01-02] VITALS (30 sets, daily range): BP systolic 102–138; BP diastolic 61–90; PULSE 69–86; RESP 16–28; TEMP 35.6–36.6; O2SAT 92–97
[2022-01-02] MEDS: ALBUTEROL SULFATE NEB 2.5 MG/0.5 ML INH INHALATION ×4 (02:09→19:52)
[2022-01-02] MEDS: IPRATROPIUM BR 0.02% INH SOLN 0.5 MG/2.5 ML VIAL INHALATION ×4 (02:09→19:52)
[2022-01-02 04:47] LABS: Hematocrit 40.4 % (42.0-52.0); Hemoglobin 12.3 g/dL (14.0-18.0); Mean Corpuscular HGB Conc 30.4 g/dl (32-36); Mean Corpuscular Hemoglobin 29.9 pg (26-34); Mean Corpuscular Volume 98.3 fl (80-100); Mean Platelet Volume 9.6 fl (7.4-10.4); Platelet Count Result 153 k/mm3 (150-375); Red Blood Count 4.11 M/mm3 (4.6-6.20); Red Cell Distribution Width 13.2 % (11.5-14.5); White Blood Count 8.8 K/mm3 (4.5-10.0)
[2022-01-02 05:14] LABS: Blood Urea Nitrogen 23 mg/dL (9-20); Calcium 8.8 mg/dL (8.4-10.2); Carbon Dioxide > 40 mmol/L (22-30); Chloride 86 mmol/L (98-107); Estimated CRCL calculation 101 ml/min; Estimated Glomerular Filt Rate > 60; Glucose 116 mg/dL (65-110); Potassium 3.4 mmol/L (3.4-5.0); Sodium 135 mmol/L (137-145)
[2022-01-02] MEDS: predniSONE 20 MG TABLET 60 MG PO (08:15)
[2022-01-02] MEDS: FUROSEMIDE INJ 40 MG/4 ML VIAL IV PUSH ×2 (08:34→17:30)
[2022-01-02] MEDS: ASPIRIN 81 MG ENTERIC TABLET PO (08:35)
[2022-01-02] MEDS: risperiDONE 1 MG TABLET PO (08:35)
[2022-01-02] MEDS: busPIRone HCL 10 MG TABLET PO ×3 (08:36→17:30)
[2022-01-02] MEDS: AMANTADINE HCL 100 MG CAPSULE PO (08:36)
[2022-01-02] MEDS: SENNA/DOCUSATE SODIUM TABLET 1 TAB PO (08:37)
[2022-01-02] MEDS: TAMSULOSIN HCL 0.4 MG CAPSULE PO (08:37)
[2022-01-02 08:38] LABS: Glucose Point of Care 86 mg/dl (65-105)
[2022-01-02] MEDS: LOSARTAN POTASSIUM 50 MG TABLET PO (08:38)
[2022-01-02] MEDS: MULTIVITAMINS THERAPEUTIC TAB (*BKC) 1 TABLET PO (08:38)
[2022-01-02] MEDS: FAMOTIDINE 20 MG TABLET PO ×2 (08:40→17:29)
[2022-01-02] MEDS: INSULIN GLARGINE (*BKC) 100 UNITS/ML 8 UNITS SUB-Q (09:02)
[2022-01-02] MEDS: POTASSIUM CHLORIDE 20 MEQ TABLET 40 MEQ PO (09:09)
--- NOTE | 2022-01-02 11:55 | PM.IMPN ---
Progress Note: A&P Assessment and Plan (1) Acute on chronic respiratory failure with hypoxia and hypercapnia: Code(s): J96.21 - Acute and chronic respiratory failure with hypoxia; J96.22 - Acute and chronic respiratory failure with hypercapnia Status: Acute Assessment and Plan: Secondary to COPD exacerbation. We discussed the importance of him using his BiPAP at nighttime though it causes him much anxiety and he just does not tolerate it. ABG demonstrates compensated respiratory acidosis. 12/31/2021 Interval history: patient with history of COPD and hypercapnic respiratory failure who had been refusing to use CPAP at home and presented with elevated CO2, currently on BiPAP, has no new complaints, will repeat ABG and further recommendation to follow, will continue present management with IV Lasix and prednisone. 01/01/2022 Interval history: patient with history of COPD and hypercapnic respiratory failure who had been refusing to use CPAP at home and presented with elevated CO2, was placed on BiPAP upon arrival, repeat showed improvement, currently patient is off BIPAP, on 6L NC and stating 94%, will continue present management with IV Lasix and prednisone. Will reassess and plan. 01/02/2022 Interval history: patient with history of COPD and hypercapnic respiratory failure who had been refusing to use CPAP at home and presented with elevated CO2, was placed on BiPAP upon arrival, repeat ABG showed improvement, he wore BIPAP, last night and currently patient is off BIPAP, on 6L NC and stating 94%, patient is being diuresed and has lost close to 10L urine, will continue present management with IV Lasix and prednisone. Will reassess and plan. (2) Pneumonia involving right lung: Code(s): J18.9 - Pneumonia, unspecified organism Status: Acute Assessment and Plan: Continue azithromycin and ceftriaxone, pending sputum culture. SARS-CoV-2 by PCR was negative. (3) Abnormal EKG: Code(s): R94.31 - Abnormal electrocardiogram [ECG] [EKG] Status: Acute Assessment and Plan: EKG shows T-wave inversions in the lateral leads. An echocardiogram done a couple of weeks ago showed wnis-kx-olccpgrjva reduced LV systolic function with an EF estimated at 40 to 45% with left ventricular septal wall motion abnormality related to pacing. Patient is not having any chest pain currently. Would benefit from cardiac evaluation. (4) Atrial flutter: Code(s): I48.92 - Unspecified atrial flutter Status: Acute Assessment and Plan: Rate controlled. INR is therapeutic. (5) COPD exacerbation: Code(s): J44.1 - Chronic obstructive pulmonary disease with (acute) exacerbation Status: Acute Assessment and Plan: He has been started on scheduled bronchodilators and steroids. (6) Chronic anticoagulation: Code(s): Z79.01 - longterm (current) use of anticoagulants Status: Acute Assessment and Plan: INR is therapeutic and will be monitored. (7) Combined systolic and diastolic congestive heart failure: Code(s): I50.40 - Unspecified combined systolic (congestive) and diastolic (congestive) heart failure Status: Acute Assessment and Plan: Clinically compensated this time. Monitor volume status closely. (8) Insulin dependent diabetes mellitus: Status: Chronic Assessment and Plan: Continue basal insulin. Initiate sliding scale insulin, Accu-Cheks, and hypoglycemic protocol. Recent A1c was 6.4%. Subjective Date/time seen: 01/02/22 11:55 12/31/2021 Interval history: patient with history of COPD and hypercapnic respiratory failure who had been refusing to use CPAP at home and presented with elevated CO2, currently on BiPAP, has no new complaints, will repeat ABG and further recommendation to follow, will continue present management with IV Lasix and prednisone. 01/01/2022 Interval history: patient with history of COPD and hy
[2022-01-02 12:06] LABS: Glucose Point of Care 161 mg/dl (65-105)
[2022-01-02 16:59] LABS: Glucose Point of Care 233 mg/dl (65-105)
[2022-01-02] MEDS: WARFARIN (*PBKC) 3 MG TABLET 6 MG PO (17:29)
[2022-01-02] MEDS: INSULIN HUMAN REGULAR (*BKC) 100 UNITS/ML SUB-Q (17:33)
[2022-01-02 19:52] LABS: Glucose Point of Care 260 mg/dl (65-105)
[2022-01-02] MEDS: ATORVASTATIN 10 MG TABLET PO (21:27)
[2022-01-02] MEDS: GABAPENTIN 300 MG CAPSULE PO (21:27)
[2022-01-02] MEDS: INSULIN GLARGINE (*BKC) 100 UNITS/ML 40 UNITS SUB-Q (21:27)
[2022-01-02] MEDS: traZODone HCL 50 MG TABLET PO (21:27)
[2022-01-03] VITALS (23 sets, daily range): BP systolic 105–153; BP diastolic 74–88; PULSE 63–93; RESP 16–29; TEMP 35.9–36.9; O2SAT 92–99
[2022-01-03] MEDS: ALBUTEROL SULFATE NEB 2.5 MG/0.5 ML INH INHALATION ×4 (02:13→21:12)
[2022-01-03] MEDS: IPRATROPIUM BR 0.02% INH SOLN 0.5 MG/2.5 ML VIAL INHALATION ×4 (02:13→21:12)
[2022-01-03 07:48] LABS: Glucose Point of Care 85 mg/dl (65-105)
[2022-01-03 08:38] LABS: Hematocrit 45.1 % (42.0-52.0); Hemoglobin 14.1 g/dL (14.0-18.0); Mean Corpuscular HGB Conc 31.3 g/dl (32-36); Mean Corpuscular Hemoglobin 31.1 pg (26-34); Mean Corpuscular Volume 99.6 fl (80-100); Mean Platelet Volume 10.9 fl (7.4-10.4); Platelet Count Result 171 k/mm3 (150-375); Red Blood Count 4.53 M/mm3 (4.6-6.20); Red Cell Distribution Width 13.4 % (11.5-14.5); White Blood Count 9.3 K/mm3 (4.5-10.0)
[2022-01-03 08:51] LABS: Blood Urea Nitrogen 34 mg/dL (9-20); Calcium 8.7 mg/dL (8.4-10.2); Carbon Dioxide > 40 mmol/L (22-30); Chloride 88 mmol/L (98-107); Estimated CRCL calculation 100 ml/min; Estimated Glomerular Filt Rate > 60; Glucose 98 mg/dL (65-110); Potassium 4.7 mmol/L (3.4-5.0); Sodium 135 mmol/L (137-145)
[2022-01-03] MEDS: predniSONE 20 MG TABLET 60 MG PO (09:17)
[2022-01-03] MEDS: FUROSEMIDE INJ 40 MG/4 ML VIAL IV PUSH ×2 (09:17→17:21)
[2022-01-03] MEDS: AMANTADINE HCL 100 MG CAPSULE PO (09:18)
[2022-01-03] MEDS: FAMOTIDINE 20 MG TABLET PO ×2 (09:18→17:21)
[2022-01-03] MEDS: ASPIRIN 81 MG ENTERIC TABLET PO (09:18)
[2022-01-03] MEDS: LOSARTAN POTASSIUM 50 MG TABLET PO (09:19)
[2022-01-03] MEDS: busPIRone HCL 10 MG TABLET PO ×3 (09:19→17:22)
[2022-01-03] MEDS: TAMSULOSIN HCL 0.4 MG CAPSULE PO (09:19)
[2022-01-03] MEDS: MULTIVITAMINS THERAPEUTIC TAB (*BKC) 1 TABLET PO (09:19)
[2022-01-03] MEDS: risperiDONE 1 MG TABLET PO (09:19)
[2022-01-03] MEDS: INSULIN HUMAN REGULAR (*BKC) 100 UNITS/ML SUB-Q ×3 (09:24→17:18)
[2022-01-03] MEDS: INSULIN GLARGINE (*BKC) 100 UNITS/ML 8 UNITS SUB-Q (09:25)
--- NOTE | 2022-01-03 09:48 | PM.IMPN ---
Progress Note: A&P Assessment and Plan (1) Acute respiratory failure with hypoxia: Code(s): J96.01 - Acute respiratory failure with hypoxia Status: Acute (2) Acute on chronic respiratory failure with hypoxia and hypercapnia: Code(s): J96.21 - Acute and chronic respiratory failure with hypoxia; J96.22 - Acute and chronic respiratory failure with hypercapnia Status: Acute (3) Chronic obstructive pulmonary disease: Code(s): J44.9 - Chronic obstructive pulmonary disease, unspecified Status: Acute (4) Combined systolic and diastolic congestive heart failure: Code(s): I50.40 - Unspecified combined systolic (congestive) and diastolic (congestive) heart failure Status: Acute (5) Atrial flutter: Code(s): I48.92 - Unspecified atrial flutter Status: Acute (6) Bipolar disorder: Code(s): F31.9 - Bipolar disorder, unspecified Status: Chronic (7) Depression: Code(s): F32.A - Depression, unspecified Status: Chronic (8) Obesity: Code(s): E66.9 - Obesity, unspecified Status: Acute (9) Insulin dependent diabetes mellitus: Status: Chronic (10) Paroxysmal atrial fibrillation: Code(s): I48.0 - Paroxysmal atrial fibrillation Status: Acute (11) Coronary artery disease: Code(s): I25.10 - Atherosclerotic heart disease of jena coronary artery without angina pectoris Status: Acute (12) Chronic anticoagulation: Code(s): 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 We discussed the importance of him using his BiPAP at nighttime though it causes him much anxiety and he just does not tolerate it. ABG demonstrates compensated respiratory acidosis. 12/31/2021 Interval history: patient with history of COPD and hypercapnic respiratory failure who had been refusing to use CPAP at home and presented with elevated CO2, currently on BiPAP, has no new complaints, will repeat ABG and further recommendation to follow, will continue present management with IV Lasix and prednisone. 01/01/2022 Interval history: patient with history of COPD and hypercapnic respiratory failure who had been refusing to use CPAP at home and presented with elevated CO2, was placed on BiPAP upon arrival, repeat showed improvement, currently patient is off BIPAP, on 6L NC and stating 94%, will continue present management with IV Lasix and prednisone. Will reassess and plan. 01/02/2022 Interval history: patient with history of COPD and hypercapnic respiratory failure who had been refusing to use CPAP at home and presented with elevated CO2, was placed on BiPAP upon arrival, repeat ABG showed improvement, he wore BIPAP, last night and currently patient is off BIPAP, on 6L NC and stating 94%, patient is being diuresed and has lost close to 10L urine, will continue present management with IV Lasix and prednisone. Will reassess and plan. 01/03/22 BG at goal labs ok down to 4L NC BP near goal cont to monitor dc planning c/s Sheeter Waxer Operator Subjective Date/time seen: 01/03/22 09:48 Patient sitting up in chair bedside sitter is present in the room with him. He remains on 4 L nasal cannula when asked patient reports that this is his baseline. He lives at a nursing facility. He request to go home soon. He denies any other complaint Exam Narrative: GEN: comfortable, NAD, Moderately obese HEENT: eyes are clear and nonicteric, BiPAP at bedside. Poor dentition LUNGS: Normal respiratory effort on 4L NC faint bibasilar crackles ABD: globose
[2022-01-03 11:34] LABS: Glucose Point of Care 177 mg/dl (65-105)
[2022-01-03 16:33] LABS: Glucose Point of Care 203 mg/dl (65-105)
[2022-01-03 17:14] LABS: Pneumococcal Antigen Urine Not Detected (Not Detected)
[2022-01-03] MEDS: WARFARIN (*PBKC) 3 MG TABLET 6 MG PO (17:21)
[2022-01-03 20:02] LABS: Glucose Point of Care 184 mg/dl (65-105)
[2022-01-03] MEDS: traZODone HCL 50 MG TABLET PO (20:50)
[2022-01-03] MEDS: GABAPENTIN 300 MG CAPSULE PO (20:50)
[2022-01-03] MEDS: INSULIN GLARGINE (*BKC) 100 UNITS/ML 40 UNITS SUB-Q (20:50)
[2022-01-03] MEDS: ATORVASTATIN 10 MG TABLET PO (20:50)
[2022-01-04] VITALS (17 sets, daily range): BP systolic 106–139; BP diastolic 62–86; PULSE 69–83; RESP 16–24; TEMP 36.1–36.9; O2SAT 93–98
[2022-01-04] MEDS: ALBUTEROL SULFATE NEB 2.5 MG/0.5 ML INH INHALATION ×2 (02:53→08:13)
[2022-01-04] MEDS: IPRATROPIUM BR 0.02% INH SOLN 0.5 MG/2.5 ML VIAL INHALATION ×2 (02:54→08:13)
[2022-01-04 05:07] LABS: Hematocrit 38.8 % (42.0-52.0); Hemoglobin 12.4 g/dL (14.0-18.0); Mean Corpuscular Hemoglobin 30.4 pg (26-34); Mean Corpuscular Volume 95.1 fl (80-100); Mean Platelet Volume 10.2 fl (7.4-10.4); Platelet Count Result 152 k/mm3 (150-375); Red Blood Count 4.08 M/mm3 (4.6-6.20); Red Cell Distribution Width 13.1 % (11.5-14.5); White Blood Count 9.8 K/mm3 (4.5-10.0)
[2022-01-04 05:17] LABS: Blood Urea Nitrogen 29 mg/dL (9-20); Calcium 8.6 mg/dL (8.4-10.2); Carbon Dioxide > 40 mmol/L (22-30); Chloride 88 mmol/L (98-107); Estimated CRCL calculation 100 ml/min; Estimated Glomerular Filt Rate > 60; Glucose 123 mg/dL (65-110); Potassium 3.6 mmol/L (3.4-5.0); Sodium 133 mmol/L (137-145)
[2022-01-04 09:01] LABS: Glucose Point of Care 63 mg/dl (65-105)
[2022-01-04] MEDS: ASPIRIN 81 MG ENTERIC TABLET PO (09:06)
[2022-01-04] MEDS: busPIRone HCL 10 MG TABLET PO ×2 (09:06→12:22)
[2022-01-04] MEDS: predniSONE 20 MG TABLET 60 MG PO (09:07)
[2022-01-04] MEDS: FAMOTIDINE 20 MG TABLET PO (09:07)
[2022-01-04] MEDS: LOSARTAN POTASSIUM 50 MG TABLET PO (09:07)
[2022-01-04] MEDS: TAMSULOSIN HCL 0.4 MG CAPSULE PO (09:08)
[2022-01-04] MEDS: MULTIVITAMINS THERAPEUTIC TAB (*BKC) 1 TABLET PO (09:09)
[2022-01-04] MEDS: risperiDONE 1 MG TABLET PO (09:09)
[2022-01-04] MEDS: AMANTADINE HCL 100 MG CAPSULE PO (09:09)
[2022-01-04] MEDS: INSULIN HUMAN REGULAR (*BKC) 100 UNITS/ML SUB-Q ×2 (09:17→12:22)
[2022-01-04] MEDS: INSULIN GLARGINE (*BKC) 100 UNITS/ML 8 UNITS SUB-Q (09:18)
[2022-01-04] MEDS: FUROSEMIDE INJ 40 MG/4 ML VIAL IV PUSH (09:30)
--- NOTE | 2022-01-04 09:40 | PM.IMPN ---
Subjective Date/time seen: 01/04/22 09:40 Patient doing better still is not down to his normal 2 L daily. Diuresing well nearly 2 L down Objective Data Vital Signs Vital Signs: Vital Signs - 24 hr 01/03/22 10:00 01/03/22 12:00 01/03/22 13:50 Temperature 97.8 F Pulse Rate 74 85 75 Respiratory Rate 20 20 Blood Pressure 136/82 Pulse Oximetry 97 01/03/22 13:56 01/03/22 14:00 01/03/22 16:00 Temperature Pulse Rate 71 69 93 Respiratory Rate 20 20 Blood Pressure Pulse Oximetry 97 01/03/22 16:12 01/03/22 20:00 01/03/22 21:14 Temperature 98.4 F 96.7 F L Pulse Rate 85 74 74 Respiratory Rate 18 22 H 16 Blood Pressure 105/88 139/80 Pulse Oximetry 94 92 94 01/03/22 21:21 01/03/22 22:00 01/03/22 23:21 Temperature 97.6 F Pulse Rate 76 63 79 Respiratory Rate 16 22 H Blood Pressure 139/75 Pulse Oximetry 96 01/04/22 00:00 01/04/22 00:20 01/04/22 02:00 Temperature Pulse Rate 69 69 69 Respiratory Rate 18 18 Blood Pressure Pulse Oximetry 94 97 01/04/22 02:54 01/04/22 03:00 01/04/22 03:01 Temperature Pulse Rate 72 71 71 Respiratory Rate 16 19 19 Blood Pressure Pulse Oximetry 97 01/04/22 03:55 01/04/22 04:00 01/04/22 06:00 Temperature 97.5 F L Pulse Rate 69 69 69 Respiratory Rate 22 H 18 Blood Pressure 137/62 Pulse Oximetry 96 96 01/04/22 06:23 01/04/22 08:00 01/04/22 08:13 Temperature 97 F L Pulse Rate 69 70 74 Respiratory Rate 17 24 H 18 Blood Pressure 139/81 Pulse Oximetry 93 94 01/04/22 08:16 01/04/22 08:21 Temperature Pulse Rate 69 Respiratory Rate 18 Blood Pressure Pulse Oximetry 94 Intake/Output Intake/Output: Intake & Output 01/01/22 01/02/22 01/03/22 01/04/22 23:59 23:59 23:59 23:59 Intake Total 2370 3420 960 660 Output Total 9800 5000 3300 2100 [facility] [phone] Meds/Results Medications: Active Medications Generic Name Dose Route Start Last Admin Trade Name Ziyadq PRN Reason Stop Dose Admin Albuterol 2.5 mg 12/31/21 02:00 01/04/22 08:13 Albuterol Sulfate Neb 2.5 Mg/0.5 Ml Inh INHALATION 2.5 mg Q6HRT ANURADHA Administration Amantadine HCl 100 mg 12/31/21 09:00 01/04/22 09:09 Amantadine Hcl 100 Mg Capsule PO 100 mg DAILY ANURADHA Administration Aspirin 81 mg 12/31/21 09:00 01/04/22 09:06 Aspirin 81 Mg Enteric Tablet PO 81 mg QAM ANURADHA Administration Atorvastatin Calcium 10 mg 12/31/21 21:00 01/03/22 20:50 Atorvastatin 10 Mg Tablet PO 10 mg HS ANURADHA Administration Buspirone HCl 10 mg 12/31/21 09:00 01/04/22 09:06 Buspirone Hcl 10 Mg Tablet PO 10 mg TID ANURADHA Administration Cyclobenzaprine HCl 5 mg 12/31/21 18:17 01/01/22 16:00 Cyclobenzaprine Hcl 5 Mg Tablet PO 5 mg Q8H PRN Administration Muscle Spasm Diltiazem HCl 120 mg 12/31/21 09:00 01/04/22 09:08 Diltiazem Hcl Cd 120 Mg Cap.Sa.24h PO 120 mg DAILY ANURADHA Administration Ergocalciferol 50,000 unit 01/14/22 09:00 Ergocalciferol 50,000 Unit Capsule PO MONTHLY ANURADHA Famotidine 20 mg 12/31/21 09:00 01/04/22 09:07 Famotidine 20 Mg Tablet PO 20 mg BID ANURADHA Administration Furosemide 40 mg 01/01/22 09:00 01/04/22 09:30 Furosemide Inj 40 Mg/4 Ml Vial IV PUSH 40 mg BID ANURADHA Administration Gabapentin 300 mg 12/31/21 21:00 01/03/22 20:50 Gabapentin 300 Mg Capsule PO 300 mg HS ANURADHA Administration Ceftriaxone Sodium/Dextrose 1 gm in 50 mls @ 100 mls/hr 12/31/21 14:00 01/03/22 13:53 Rocephin 1 Gm/D5w 50 Ml IVPB 100 mls/hr Q24H ANURADHA Administration Azithromycin 500 mg in 250 mls @ 250 mls/hr 12/31/21 14:00 01/03/22 13:52 Zithromax IVPB 100 mls/hr Q24H ANURADHA Administration Insulin Glargine 8 units 12/31/21 09:00 01/04/22 09:18 Insulin Glargine (*Bkc) 100 Units/Ml SUB-Q 8 units DAILY ANURADHA Administration Insulin Glargine 40 units 12/31/21 21:00 01/03/22 20:50 Insulin Glargine (*Bkc) 100 Units/Ml SUB-Q 4
--- NOTE | 2022-01-04 10:15 | PM.DS ---
DS: Admitting Diagnosis Discharge Date 01/04/22 Admitting Diagnosis (1) Acute on chronic respiratory failure with hypoxia and hypercapnia: Code(s): J96.21 - Acute and chronic respiratory failure with hypoxia; J96.22 - Acute and chronic respiratory failure with hypercapnia Status: Acute Assessment and Plan: Secondary to COPD exacerbation. We discussed the importance of him using his BiPAP at nighttime though it causes him much anxiety and he just does not tolerate it. ABG demonstrates compensated respiratory acidosis. (2) Pneumonia involving right lung: Code(s): J18.9 - Pneumonia, unspecified organism Status: Acute Assessment and Plan: Continue azithromycin and ceftriaxone, pending sputum culture. SARS-CoV-2 by PCR was negative. (3) Abnormal EKG: Code(s): R94.31 - Abnormal electrocardiogram [ECG] [EKG] Status: Acute Assessment and Plan: EKG shows T-wave inversions in the lateral leads. An echocardiogram done a couple of weeks ago showed [id number] reduced LV systolic function with an EF estimated at 40 to 45% with left ventricular septal wall motion abnormality related to pacing. Patient is not having any chest pain currently. Would benefit from cardiac evaluation. (4) Atrial flutter: Code(s): I48.92 - Unspecified atrial flutter Status: Acute Assessment and Plan: Rate controlled. INR is therapeutic. (5) COPD exacerbation: Code(s): J44.1 - Chronic obstructive pulmonary disease with (acute) exacerbation Status: Acute Assessment and Plan: He has been started on scheduled bronchodilators and steroids. (6) Chronic anticoagulation: Code(s): Z79.01 - correction (current) use of anticoagulants Status: Acute Assessment and Plan: INR is therapeutic and will be monitored. (7) Combined systolic and diastolic congestive heart failure: Code(s): I50.40 - Unspecified combined systolic (congestive) and diastolic (congestive) heart failure Status: Acute Assessment and Plan: Clinically compensated this time. Monitor volume status closely. (8) Insulin dependent diabetes mellitus: Status: Chronic Assessment and Plan: Continue basal insulin. Initiate sliding scale insulin, Accu-Cheks, and hypoglycemic protocol. Recent A1c was 6.4%. DS: Summary Hospital Course Reason for hospitalization: Acute on chronic respiratory failure Hospital Course: 61-year-old gentleman with acute on chronic respiratory failure hypoxemic/ hypercapnic noncompliant with CPAP in the outpatient setting. He is brought to the emergency room with increasing oxygen requirements and hypercapnia with resulting altered mental status. CT imaging shows patient has pneumonia he is placed on azithromycin Rocephin. He is given supplemental oxygen and supported with BiPAP. Patient noted to have elevated BNP with echocardiogram that reveals diastolic congestive heart failure he he is placed on IV Lasix 40 mg b.i.d.. At the time of discharge patient has returned to his normal 4 L baseline oxygen requirement and his mental status has improved. He is -3290 mL of fluid. Patient is discharged back to his nursing facility in stable condition with indications to follow-up with his primary care physician next week. Antibiotics will be continued at discharge for a total of 10 days. Patient with a.m. a.m. hypoglycemia and p.m. Lantus has been decreased. Status at Discharge Overall status at discharge: patient is not back to baseline Time Spent with Patient Time attestation: Total time spent providing and/or coordinating discharge services: Time spent: Greater than 30 minutes Exam Narrative: GEN: comfortable, NAD, Moderately obese HEENT: eyes are clear and nonicteric, BiPAP at bedside. Poor dentition LUNGS: Normal respiratory effort on 4L NC faint bibasilar crackles ABD: globose nontender soft Lower extremities: no edema no cyanosi
[2022-01-04 10:29] LABS: INR 2.9; Prothrombin Time 29.1 Seconds (11.1-14.7)
[2022-01-04 11:12] LABS: EDCOVIDSCREEN Negative (Negative)
[2022-01-04 11:54] LABS: Glucose Point of Care 89 mg/dl (65-105)
--- NOTE | 2022-01-04 13:33 | PC.NURSE ---
Transferred to [facility] and rehab @ 1326 hr via ambulance. Report called to Dali
[2022-01-05 01:22] LABS: Legionella pneumophila Ag Ur Not Detected (Not Detected)
== END 2022-01-04 13:27 | DRG 133 ==
LOC: ANHED 10:34 → ANHIMU 15:47
PROVIDERS: Family Medicine; Physician Assistant; Admitting Provider Internal Medicine; Emergency Provider General Practice; Visit Provider Hospitalist
DX: J96.21 Acute and chronic respiratory failure with hypoxia (principal); G47.33 Obstructive sleep apnea (adult) (pediatric); I25.10 Atherosclerotic heart disease of native coronary artery without angina pectoris; I48.0 Paroxysmal atrial fibrillation; Z99.81 Dependence on supplemental oxygen; E11.42 Type 2 diabetes mellitus with diabetic polyneuropathy; Z91.14 Patient's other noncompliance with medication regimen; Z86.718 Personal history of other venous thrombosis and embolism; Z86.73 Personal history of transient ischemic attack (TIA), and cerebral infarction without residual deficits; F32.9 Major depressive disorder, single episode, unspecified; I50.40 Unspecified combined systolic (congestive) and diastolic (congestive) heart failure; I27.20 Pulmonary hypertension, unspecified; F41.1 Generalized anxiety disorder; Z95.0 Presence of cardiac pacemaker; Z80.9 Family history of malignant neoplasm, unspecified; F17.210 Nicotine dependence, cigarettes, uncomplicated; Z79.82 Long term (current) use of aspirin; J18.9 Pneumonia, unspecified organism; I48.92 Unspecified atrial flutter; J96.22 Acute and chronic respiratory failure with hypercapnia; J44.1 Chronic obstructive pulmonary disease with (acute) exacerbation; Z20.822 Contact with and (suspected) exposure to COVID-19; Z79.4 Long term (current) use of insulin; Z79.899 Other long term (current) drug therapy; Z79.01 Long term (current) use of anticoagulants; E66.9 Obesity, unspecified; J44.0 Chronic obstructive pulmonary disease with (acute) lower respiratory infection
CPT/HCPCS: 36415; 36600; 70450; 71045; 71275; 80048; 80053; 82375; 82805; 82948; 83050; 83605; 83735; 83880; 84439; 84443; 84480; 84484; 85025; 85027; 85055; 85610; 85730; 87040; 87426; 87449; 87899; 92610; 92611; 93005; 94002; 94003; 94640; 96365; 96375; 97161; 97165; 97535; 99285; A9270; C9803; J0456; J0696; J1630; J1815; J1940; J2060; J2930; J7512; Q9967; U0003; U0005

== ENCOUNTER 2022-01-15 03:00 | Emergency (ER) | payer OTHER, SELFPAY ==
[2022-01-15] VITALS (18 sets, daily range): BP systolic 167–175; BP diastolic 103–138; PULSE 70–79; RESP 20; TEMP 36.8; O2SAT 95–100
--- NOTE | ~2022-01-15 | XR_ITS ---
XR chest 2V 01/15/2022 03:35 Indication: Shortness of breath Procedure: AP view of the chest Comparison: Comparison to multiple prior studies sequentially, with oldest reviewed study dated 07/29. Findings: Cardiomegaly. There is chronic right lower pleural thickening/calcification. There is right basilar airspace disease, compatible with pneumonia. Pacemaker leads are stable. Impression: 1: Right basilar airspace disease, compatible with pneumonia. Reviewed, dictated and finalized at location A. Impression: 1: Right basilar airspace disease, compatible with pneumonia.
--- NOTE | 2022-01-15 03:06 | ED.GENADULT ---
HPI - General Adult General Chief complaint: Shortness of Breath/Dyspnea Stated complaint: sob Time Seen by Provider: 01/15/22 03:05 Source: patient, EMS and RN notes reviewed History of Present Illness HPI narrative: 61-year-old male with history of COPD presented emergency department for evaluation of worsening shortness of breath. Patient is normally on 4 L of oxygen but tonight began having some worsening shortness of breath. Upon arrival to the scene EMS found the patient was saturating at 85% on his normal 4 L. Patient was placed on 15 L nonrebreather for transport. During transport patient declined any additional intervention. Upon arrival to the emerge department patient was transitioned back to his normal 4 L and was saturating at high 90s. Related Data Home Medications Medication Instructions Recorded Confirmed Basaglar KwikPen U-100 Insulin 8 unit SUBCUT DAILY 11/26/20 12/30/21 amantadine HCl 100 mg PO DAILY 11/26/20 12/30/21 aspirin 81 mg PO DAILY 11/26/20 12/30/21 atorvastatin 10 mg PO HS 11/26/20 12/30/21 diltiazem HCl 120 mg PO DAILY 11/26/20 12/30/21 furosemide [Lasix] 40 mg PO DAILY 11/26/20 12/30/21 losartan 50 mg PO DAILY 11/26/20 12/30/21 risperidone 1 mg PO DAILY 11/26/20 12/30/21 trazodone 50 mg PO HS 11/26/20 12/30/21 Lantus Solostar U-100 Insulin 40 unit SUBCUT HS 12/15/21 12/30/21 Novolin R Flexpen 4 unit SUBCUT TIDWMEAL 12/15/21 12/30/21 albuterol sulfate 2 puff INHALATION Q4H 12/15/21 12/30/21 buspirone 10 mg PO TID 12/15/21 12/30/21 ergocalciferol (vitamin D2) 1 unit PO MONTHLY 12/15/21 12/30/21 famotidine 20 mg PO BID 12/15/21 12/30/21 gabapentin 300 mg PO HS 12/15/21 12/30/21 nystatin [Nystop] 1 applic TOPICAL DAILY PRN 12/15/21 12/30/21 polyethylene glycol 3350 17 g PO DAILY PRN 12/15/21 12/30/21 sennosides-docusate sodium 1 tablet PO BID PRN 12/15/21 12/30/21 [Senexon-S] tamsulosin 0.4 mg PO DAILY 12/15/21 12/30/21 warfarin 6 mg PO QPM 12/15/21 12/30/21 multivitamin [Daily-Isidro] 1 tablet PO DAILY 12/16/21 12/30/21 Allergies Allergy/AdvReac Type Severity Reaction Status Date / Time acetaminophen Allergy Unknown Unknown Verified 12/30/21 10:41 Review of Systems Review of Systems: CONSTITUTIONAL: Denies fever, chills, or sweats. EYES: Denies visual changes, redness, or discharge. ENT: Denies rhinorrhea, congestion, sore throat, or otalgia. CARDIOVASCULAR: Denies chest pain, palpitations, or edema. RESPIRATORY: SOB GASTROINTESTINAL: Denies abdominal pain, nausea, vomiting, or diarrhea. GENITOURINARY: Denies dysuria or hematuria. SKIN: Denies rash or itching. MUSCULOSKELETAL: Denies back pain, joint pain, or myalgia. NEUROLOGIC: Denies headache, numbness, or weakness. [facility] Past Medical History Medical History (Updated 01/15/22 @ 05:49 by Amador Valentine MD) Bipolar disorder Cerebrovascular accident Chronic anticoagulation Chronic obstructive pulmonary disease Chronic respiratory failure with hypoxia and hypercapnia Combined systolic and diastolic congestive heart failure Echocardiogram on 12/16/2021 showed a mildly enlarged LV chamber, [id number] reduced left ventricular systolic function with an EF estimated 40 to 45%, and abnormal diastolic function. Coronary artery disease Deep venous thrombosis Depression Diabetic neuropathy Generalized anxiety disorder History of trauma Traumatic brain injury years ago after a fall. Insulin dependent diabetes mellitus Mild pulmonary hypertension Estimated pulmonary arterial systolic pressure was 40 mmHg on echocardiogram in November 2021. Obstructive sleep apnea Noncompliant with BiPAP. On 2 L nasal cannula at nighttime. Paroxysmal atrial fibrillation Paroxysmal atrial flutter Transient ischemic attack Surgical History Surgical History (Updated 12/30/21 @ 15:13 by Lisa Griffin PA-C) History of coronary artery stent placement History of open reduction and internal fixation (ORIF) procedure Repair of right lower extremity
[2022-01-15] MEDS: ALBUTEROL SULFATE NEB 2.5 MG/0.5 ML INH 5 MG INHALATION ×2 (03:15→05:10)
--- NOTE | 2022-01-15 03:21 | PC.NURSE ---
Pt refuses cardiac technologist and IV insertion. ERP aware.
[2022-01-15 03:26] LABS: Basophils Percent Auto 0.2 % (0.2-1.2); Eosinophils Absolute Auto 0.3 K/mm3 (0-0.3); Eosinophils Percent Auto 2.8 % (0-4.4); Hematocrit 40.3 % (42.0-52.0); Hemoglobin 11.8 g/dL (14.0-18.0); Immature Granulocyte Absolute 0.04 K/mm3 (0.00-0.031); Immature Granulocyte Percent A 0.4 % (0-0.5); Lymphocytes Percent Auto 19.1 % (18.3-44.2); Mean Corpuscular HGB Conc 29.3 g/dl (32-36); Mean Corpuscular Hemoglobin 30.3 pg (26-34); Mean Corpuscular Volume 103.6 fl (80-100); Mean Platelet Volume 9.2 fl (7.4-10.4); Monocytes Absolute Auto 0.7 K/mm3 (0.1-0.6); Monocytes Percent Auto 8.1 % (2.6-8.5); Neutrophils Absolute Auto 6.2 K/mm3 (1.3-6.7); Neutrophils Percent Auto 69.4 % (45.5-73.1); Platelet Count Result 145 k/mm3 (150-375); Red Blood Count 3.89 M/mm3 (4.6-6.20); Red Cell Distribution Width 13.4 % (11.5-14.5); White Blood Count 8.9 K/mm3 (4.5-10.0)
[2022-01-15] MEDS: predniSONE 40 MG, predniSONE 10 MG 50 MG PO (03:39)
[2022-01-15 03:41] LABS: Alanine Aminotransferase 24 U/L (4-50); Albumin Level 3.7 g/dL (3.5-5.1); Alkaline Phosphatase 101 U/L (38-126); Aspartate Amino Transferase 27 U/L (17-59); Bilirubin,Total 0.4 mg/dL (0.2-1.3); Blood Urea Nitrogen 23 mg/dL (9-20); Calcium 8.6 mg/dL (8.4-10.2); Carbon Dioxide > 40 mmol/L (22-30); Chloride 94 mmol/L (98-107); Estimated CRCL calculation 116 ml/min; Estimated Glomerular Filt Rate > 60; Glucose 105 mg/dL (65-110); Potassium 3.7 mmol/L (3.4-5.0); Sodium 140 mmol/L (137-145)
== END 2022-01-15 06:50 | disposition home or self-care (01) ==
PROVIDERS: Emergency Provider Emergency Medicine
DX: J44.9 Chronic obstructive pulmonary disease, unspecified (principal); I50.40 Unspecified combined systolic (congestive) and diastolic (congestive) heart failure; I25.10 Atherosclerotic heart disease of native coronary artery without angina pectoris; E11.40 Type 2 diabetes mellitus with diabetic neuropathy, unspecified; J96.11 Chronic respiratory failure with hypoxia; J96.12 Chronic respiratory failure with hypercapnia; I27.20 Pulmonary hypertension, unspecified; G47.33 Obstructive sleep apnea (adult) (pediatric); I48.0 Paroxysmal atrial fibrillation; I48.92 Unspecified atrial flutter; Z86.718 Personal history of other venous thrombosis and embolism; Z86.73 Personal history of transient ischemic attack (TIA), and cerebral infarction without residual deficits; Z79.82 Long term (current) use of aspirin; Z79.4 Long term (current) use of insulin; Z79.01 Long term (current) use of anticoagulants; Z99.81 Dependence on supplemental oxygen; Z95.0 Presence of cardiac pacemaker; Z95.5 Presence of coronary angioplasty implant and graft; F17.210 Nicotine dependence, cigarettes, uncomplicated
CPT/HCPCS: 36415; 71046; 80053; 85025; 94640; 99284; J7512

== ENCOUNTER 2023-02-07 19:45 | Inpatient (IN) | payer OTHER, SELFPAY ==
[2023-02-07] VITALS (9 sets, daily range): BP systolic 155–156; BP diastolic 74–93; PULSE 95–109; RESP 20–27; TEMP 36.4; O2SAT 90–100
--- NOTE | ~2023-02-07 | XR_ITS ---
EXAMINATION: XR chest 1V portable Exam Date/Time: 02/07/2023 20:53 CDT HISTORY: Dyspnea Comparison: 01/15/2022. RESULT: Lines, tubes, and devices: Left chest pacer with intact leads. Lungs and pleura: Worsening moderate blunting of the left lateral costophrenic angle. Diffuse reticu lar opacities and indistinct vessels. Persistent but smaller area of chronic calcification in the per ipheral right lower lung. Cardiomediastinal silhouette: Stable. Other: No acute osseous or upper abdominal finding. IMPRESSION: Moderate interstitial pulmonary edema. Small-moderate left pleural effusion. Reviewed, dictated and finalized at location K.
--- NOTE | ~2023-02-07 | XR_ITS ---
Portable chest x-ray Comparison: 02/08/2023 Clinical History: Respiratory failure Findings: Stable large calcified right basilar pleural plaque. Probable small left pleural effusion. Stable mild haziness in the right lung. Cardiomediastinal silhouette is stable, with pacemaker adeline ce. Bones and soft tissues are unremarkable. Impression: Small left pleural effusion. Stable haziness right lung, nonspecific. Stable extensive calcified right basilar pleural plaque. Pacemaker device. Reviewed, dictated and finalized at location . Impression: Small left pleural effusion. Stable haziness right lung, nonspecific. Stable extensive calcified right basilar pleural plaque. Pacemaker device.
--- NOTE | ~2023-02-07 | XR_ITS ---
EXAMINATION: XR abdomen/kub 1V INDICATION: Nausea and vomiting, abdominal distention TECHNIQUE: Supine views of the abdomen were obtained on three radiographs. COMPARISON: 06/03/2011 FINDINGS: There is moderate gaseous distention of the stomach. Contrast from earlier modified barium swallow is seen in the stomach as well as in the nondistended bowel. No free intraperitoneal gas is i dentified. Calcified pleural plaque is noted at the right lung base. IMPRESSION: 1. Moderate gaseous distention of the stomach. Reviewed, dictated and finalized at location A.
--- NOTE | ~2023-02-07 | XR_ITS ---
EXAMINATION: XR barium swallow modified DATE: 02/10/2023 12:52 INDICATION: Dysphagia TECHNIQUE: Modified barium esophagram was performed by myself who administered fluoroscopy, in conju nction with speech pathologist who administered barium in varying consistencies as per speech patholo gist documentation. This was recorded on tape. A single fluoroscopic spot image was recorded. Fluoros copy exposure time was 1.8 minutes. The DAP for this procedure was 6.514 Gycm2. FINDINGS: Oral stage: Adequate function. Pharyngeal phase: Adequate function. Laryngeal penetration: Present. Aspiration: None. Laryngeal sensitivity: Not applicable. IMPRESSION: Laryngeal penetration. Please refer to speech pathologist findings and specific feeding r ecommendations. Reviewed, dictated and finalized at location A. IMPRESSION: Laryngeal penetration. Please refer to speech pathologist findings and specific feeding recommendations.
--- NOTE | ~2023-02-07 | XR_ITS ---
Portable chest x-ray Comparison: 02/07/2023 Clinical History: Respiratory failure Findings: Extensive calcified right pleural plaque present. Probable minimal pleural effusions. Prob able mild pulmonary edema. Cardiomediastinal silhouette is stable, with pacemaker device. Bones and soft tissues are unremarkable. Impression: Probable mild pulmonary edema and small bilateral pleural effusions. Extensive calcified right pleural plaque is unchanged. Pacemaker device. Reviewed, dictated and finalized at location . Impression: Probable mild pulmonary edema and small bilateral pleural effusions. Extensive calcified right pleural plaque is unchanged. Pacemaker device.
--- NOTE | 2023-02-07 19:59 | ECG_ITS ---
Measurements Intervals [place] Rate: 74 P: AK: 0 QRS: -70 QRSD: 214 T: 89 QT: 444 QTc: 493 Interpretive Statements ELECTRONIC VENTRICULAR PACEMAKER WITH UNDERLYING ATRIAL FLUTTER NO FURTHER INTERPRETATION POSSIBLE COMPARED TO ECG 12/30/2021 10:27:48 ELECTRONIC VENTRICULAR PACING IS NOW PRESENT Electronically Signed On 02-09-2023 16:09:26 CDT by Carlos Barboza M.D.
[2023-02-07 20:21] LABS: Basophils Percent Auto 0.2 % (0.2-1.2); Eosinophils Percent Auto 0.2 % (0-4.4); Hemoglobin 11.4 g/dL (14.0-18.0); Immature Granulocyte Absolute 0.19 K/mm3 (0.00-0.031); Immature Granulocyte Percent A 2.2 % (0-0.5); Lymphocytes Absolute Auto 0.61 K/mm3 (0.9-3.2); Lymphocytes Percent Auto 6.9 % (18.3-44.2); Mean Corpuscular HGB Conc 28.5 g/dl (32-36); Mean Corpuscular Hemoglobin 29.1 pg (26-34); Mean Platelet Volume 9.8 fl (7.4-10.4); Monocytes Absolute Auto 0.6 K/mm3 (0.1-0.6); Monocytes Percent Auto 6.2 % (2.6-8.5); Neutrophils Absolute Auto 7.4 K/mm3 (1.3-6.7); Neutrophils Percent Auto 84.3 % (45.5-73.1); Platelet Count Result 158 k/mm3 (150-375); Red Blood Count 3.92 M/mm3 (4.6-6.20); Red Cell Distribution Width 13.6 % (11.5-14.5); White Blood Count 8.8 K/mm3 (4.5-10.0)
[2023-02-07 20:32] LABS: Hypochromasia 1+ (NORMAL); INR 1.9; Platelet Estimate Adequate (Adequate); Prothrombin Time 20.9 Seconds (11.1-14.7)
[2023-02-07 20:33] LABS: Partial Thromboplastin Time 39.1 SECONDS (22.3-36.8); Schistocytes None Seen (NORMAL)
[2023-02-07] MEDS: LEVALBUTEROL NEB 1.25 MG/3 ML INHALATION (20:38)
[2023-02-07] MEDS: IPRATROPIUM BR 0.02% INH SOLN 0.5 MG/2.5 ML VIAL INHALATION (20:38)
[2023-02-07 20:43] LABS: NT Pro B Type Natriuretic Pept 447 pg/mL (19.9-100); Troponin I 0.013 ng/mL (0.000-0.034)
[2023-02-07 20:48] LABS: Alanine Aminotransferase 30 U/L (6-50); Albumin Level 3.8 g/dL (3.5-5.1); Alkaline Phosphatase 121 U/L (38-126); Aspartate Amino Transferase 25 U/L (17-59); Bilirubin,Total 0.6 mg/dL (0.2-1.3); Blood Urea Nitrogen 17 mg/dL (9-20); Calcium 8.4 mg/dL (8.4-10.2); Carbon Dioxide > 40 mmol/L (22-30); Chloride 82 mmol/L (98-107); Estimated Glomerular Filt Rate > 60; Glucose 317 mg/dL (65-110); Magnesium 1.9 mg/dL (1.6-2.3); Potassium 4.6 mmol/L (3.4-5.0); Sodium 135 mmol/L (137-145)
[2023-02-07 20:49] LABS: Alveolar/Arterial O2 Gradient 312.5 mmHg; Base Excess ABG 27.1 mEq/l (+/-2.0); Fractional Inspired Oxygen 100 %; HCO3 ABG 61.5 mEq/l (22.0-26.0); Oxygen Content ABG 16.9 %vol (16.0-22.0); Oxygen Saturation ABG 99.3 % (95.0-100.0); Oxyhemoglobin 97.6 % THb (90.0-100.0); PO2 ABG 250.2 mmHg (80.0-100.0); Total Hemoglobin 11.9 g/dL (12.0-18.0)
[2023-02-07 20:52] LABS: Device BIPAP; Expiratory Pressure 8 cmH2O; Inspiratory Pressure 18 cmH2O; Modified Allen's Test Pass; PCO2 ABG 150.3 mmHg (35.0-45.0); Site Drawn RIGHT RADIAL
[2023-02-07 22:13] LABS: Influenza A QL RT-PCR Negative (Negative); Influenza B QL RT-PCR Negative (Negative); RSV RNA, RT-PCR Negative (Negative); SARS-CoV-2 RNA PCR Negative
[2023-02-07 22:19] LABS: Procalcitonin 0.1 ng/mL
--- NOTE | 2023-02-07 22:22 | PM.IMHP ---
H&P: HPI History of Present Illness Date/Time: 02/07/23 22:22 Chief Complaint: 62 years old male with past medical history of COPD chronic hypercapnic respiratory failure obstructive sleep apnea 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ikely pneumonia BNP was elevated patient also has lower extremity swelling on exam patient will be admitted to the hospital for further evaluation and treatment of acute COPD exacerbation acute on top of chronic hypoxemic hypercapnic respiratory failure and CHF exacerbation associated with pulmonary edema cannot rule out pneumonia started on empiric IV antibiotic IV vancomycin IV cefepime Review of Systems Review of Systems: Unable to obtain due to acutely of current condition [facility] Past Medical History Medical History Bipolar disorder Cerebrovascular accident Chronic anticoagulation Chronic obstructive pulmonary disease Chronic respiratory failure with hypoxia and hypercapnia Combined systolic and diastolic congestive heart failure Echocardiogram on 12/16/2021 showed a mildly enlarged LV chamber, [id number] reduced left ventricular systolic function with an EF estimated 40 to 45%, and abnormal diastolic function. Coronary artery disease Deep venous thrombosis Depression Diabetic neuropathy Generalized anxiety disorder History of trauma Traumatic brain injury years ago after a fall. Insulin dependent diabetes mellitus Mild pulmonary hypertension Estimated pulmonary arterial systolic pressure was 40 mmHg on echocardiogram in November 2021. Obstructive sleep apnea Noncompliant with BiPAP. On 2 L nasal cannula at nighttime. Paroxysmal atrial fibrillation Paroxysmal atrial flutter Transient ischemic attack Surgical History Surgical History History of coronary artery stent placement History of open reduction and internal fixation (ORIF) procedure Repair of right lower extremity and left shoulder fractures. History of pacemaker History of tracheostomy Family History Family History Other Cancer Social History Social History Social History: Resident at [facility]. He is and has 1 child. On disability since his traumatic brain injury. He smoked up to 2 packs of cigarettes a day but is now down to about a pack a day. He has smoked for at least 30+ years. No alcohol or illicit substance abuse. Healthcare power of underground utility locator: Simone Morley. Code status: Full code. Smoking packs per day: 1 Smoking cigarettes per day: 20.0 Years smoked: 30 Smoking pack-years: 30.00 Smoking status: Former smoker Tobacco type: cigarettes Second hand tobacco smoke exposure: No Alcohol intake: never Substance use: never Spiritual care concerns: No Meds Home Medications and Allergies Home Medications Medication Instructions Recorded Confirmed Type amantadine HCl 100 mg tablet 100 mg PO DAILY 11/26/20 02/22/22 History aspirin 81 mg tablet 81 mg PO DAILY 11/26/20 02/22/22 History atorvastatin 10 mg tablet 10 mg PO HS 11/26/20 02/22/22 History diltiazem HCl 120 mg 120 mg PO DAILY 11/26/20 02/22/22 History capsule,extended release 24 hr, controll
[2023-02-07 22:37] LABS: Alveolar/Arterial O2 Gradient 191.7 mmHg; Base Excess ABG 16.6 mEq/l (+/-2.0); Fractional Inspired Oxygen 50 %; HCO3 ABG 47.2 mEq/l (22.0-26.0); Oxygen Content ABG 14.1 %vol (16.0-22.0); PO2 ABG 53.9 mmHg (80.0-100.0); PO2 FiO2 Ratio Arterial Blood 1.08 %; Total Hemoglobin 11.9 g/dL (12.0-18.0)
[2023-02-07 22:38] LABS: PCO2 ABG 98.6 mmHg (35.0-45.0); pH ABG 7.298 (7.350-7.450)
[2023-02-07 22:39] LABS: Device BIPAP; Modified Allen's Test Pass; Oxygen Saturation ABG 81.9 % (95.0-100.0); Oxyhemoglobin 84.3 % THb (90.0-100.0); Site Drawn RIGHT RADIAL
[2023-02-07 22:40] LABS: Expiratory Pressure 8 cmH2O; Inspiratory Pressure 18 cmH2O
--- NOTE | 2023-02-07 22:50 | ED.GENADULT ---
HPI - General Adult General Chief complaint: Shortness of Breath/Dyspnea Stated complaint: sob Time Seen by Provider: 02/07/23 19:54 History of Present Illness HPI narrative: Patient is 60-year-old gentleman who presents the emergency department with chief complaint of shortness of breath. Patient has prior history of COPD and obstructive sleep apnea patient was recently diagnosed with pneumonia at the residential and normally is on 4 L nasal cannula. The patient started having increasing shortness of breath this evening EMS was called and the patient was found to be saturating in the 80s. Patient was placed on CPAP by EMS and then on BiPAP upon arrival to the emergency department. And reports that he is not having any fevers with this. Related Data Home Medications Medication Instructions Recorded Confirmed amantadine HCl 100 mg tablet 100 mg PO DAILY 11/26/20 02/22/22 aspirin 81 mg tablet 81 mg PO DAILY 11/26/20 02/22/22 atorvastatin 10 mg tablet 10 mg PO HS 11/26/20 02/22/22 diltiazem HCl 120 mg 120 mg PO DAILY 11/26/20 02/22/22 capsule,extended release 24 hr, controlled furosemide 40 mg tablet (Lasix) 40 mg PO DAILY 11/26/20 02/22/22 insulin glargine 100 unit/mL (3 8 unit subcut DAILY 11/26/20 02/22/22 mL) subcutaneous pen (Basaglar KwikPen U-100 Insulin) losartan 50 mg tablet 50 mg PO DAILY 11/26/20 02/22/22 risperidone 1 mg tablet 1 mg PO DAILY 11/26/20 02/22/22 trazodone 50 mg tablet 50 mg PO HS 11/26/20 02/22/22 albuterol sulfate 90 mcg/actuation 2 puff inhalation Q4H 12/15/21 02/22/22 aerosol inhaler buspirone 10 mg tablet 10 mg PO TID 12/15/21 02/22/22 ergocalciferol (vitamin D2) 1,250 1 unit PO MONTHLY 12/15/21 02/22/22 mcg (50,000 unit) capsule famotidine 20 mg tablet 20 mg PO BID 12/15/21 02/22/22 gabapentin 300 mg capsule 300 mg PO HS 12/15/21 02/22/22 insulin glargine 100 unit/mL (3 40 unit subcut HS 12/15/21 02/22/22 mL) subcutaneous pen (Lantus Solostar U-100 Insulin) insulin regular human 100 unit/mL 4 unit subcut TIDWMEAL 12/15/21 02/22/22 (3 mL) subcutaneous pen (Novolin R FlexPen) nystatin 100,000 unit/gram topical 1 applic topical DAILY PRN Skin 12/15/21 02/22/22 powder (Nystop) Irritation polyethylene glycol 3350 17 17 g PO DAILY PRN Constipation 12/15/21 02/22/22 gram/dose oral powder sennosides 8.6 mg-docusate sodium 1 tablet PO BID PRN Constipation 12/15/21 02/22/22 50 mg tablet (Senexon-S) tamsulosin 0.4 mg capsule 0.4 mg PO DAILY 12/15/21 02/22/22 warfarin 6 mg tablet 6 mg PO QPM 12/15/21 02/22/22 multivitamin (Daily-Isidro tablet) 1 tablet PO DAILY 12/16/21 02/22/22 albuterol sulfate 2.5 mg/3 mL 2.5 mg inhalation Q4-6H PRN 02/22/22 02/22/22 (0.083 %) solution for nebulization menthol 4 % topical gel (Biofreeze 1 applic topical TID PRN 02/22/22 02/22/22 (menthol)) potassium chloride 20 mEq 20 meq PO DAILY 02/22/22 02/22/22 tablet,extended release tiotropium bromide 18 mcg capsule 1 cap inhalation DAILY 02/22/22 02/22/22 with inhalation device (Spiriva with HandiHaler) Allergies Allergy/AdvReac Type Severity Reaction Status Date / Time acetaminophen Allergy Unknown Unknown Verified 02/22/22 15:49 Review of Systems Review of Systems: A 10 system review of systems was completed on the patient and is negative except for what is stated in the HPI. Nursing and ancillary documentation was reviewed. [facility] Past Medical History Medical History Bipolar disorder Cerebrovascular accident Chronic anticoagulation Chronic obstructive pulmonary disease Chronic respiratory failure with hypoxia and hypercapnia Combined systolic and diastolic congestive heart failure Echocardiogram on 12/16/2021 showed a mildly enlarged LV chamber, [id number] reduced left ventricular systolic function with an EF estimated 40 to 45%, and abnormal diastolic function. Coronary artery disease Deep venous thrombo
[2023-02-07] MEDS: methylPREDNISolone SOD SUCC 40 MG VIAL IV PUSH (22:56)
[2023-02-07] MEDS: CEFEPIME 2 GM in DEXTROSE 5% IN WATER 50 ML IVPB (22:57)
[2023-02-07 22:58] LABS: Lactic Acid Reflex 1.3 mmol/L (0.7-2.0)
[2023-02-07] MEDS: FUROSEMIDE INJ 40 MG/4 ML VIAL IV PUSH (22:58)
--- NOTE | 2023-02-07 23:02 | PCRCNOTE ---
pt fio2 weaned to 50% @ 2044 post gas
[2023-02-07 23:31] LABS: Ammonia < 9 umol/L (9-30)
[2023-02-07 23:43] LABS: Troponin I 0.015 ng/mL (0.000-0.034)
[2023-02-08] VITALS (41 sets, daily range): BP systolic 140–169; BP diastolic 59–100; PULSE 70–110; RESP 15–34; TEMP 37–37.9; O2SAT 87–98; BMI 42.2
--- NOTE | 2023-02-08 00:05 | ADMGEN ---
This patient, Jp Morley, was admitted to Intensive Care Unit-8. Patient/family oriented to hospital policies and general routines including ID bracelet, bed and alarms, visiting hours, pain management, procedures, bathroom and other care routines, personal items, smoking policy, room service/diet, and visiting hours. Information on how to activate the Rapid Response Team has been discussed. Patient/Family are encouraged to report perceived risks to care and to ask questions if they do not understand what they are told or what they should do.
[2023-02-08 00:11] LABS: Appearance Urine Clear (Clear); Bacteria Urine None Seen /hpf; Bilirubin Urine Negative (Negative); Blood Urine Negative (Negative); Color Urine Yellow (Yellow); Glucose Urine UA Negative (Negative); Ketones Urine Negative (Negative); Leukocyte Esterase Ur Negative LEU/UL (Negative); Mucus Urine Present /lpf; Nitrate Urine Negative (Negative); Protein Urine Negative (Negative); RBC Urine 0-2 /hpf (0-2); Specific Grav Ur 1.011 (1.001-1.035); Squamous Epithelial Cell Urine None seen /hpf (Few); Urobilinogen Urine 0.2 mg/dL (<2.0); WBC Urine 0-5 /hpf
[2023-02-08 00:13] LABS: Add Urine Microscopic? NO
[2023-02-08 00:49] LABS: Alveolar/Arterial O2 Gradient 346.6 mmHg; Base Excess ABG 17.9 mEq/l (+/-2.0); Carboxyhemoglobin 0.4 % THb (0-2.0); Fractional Inspired Oxygen 70 %; HCO3 ABG 47.7 mEq/l (22.0-26.0); Methemoglobin ABG 0.3 %THb (0-1.5); Oxygen Content ABG 15.6 %vol (16.0-22.0); Oxyhemoglobin 89.5 % THb (90.0-100.0); PO2 ABG 58.1 mmHg (80.0-100.0); PO2 FiO2 Ratio Arterial Blood 0.83 %; Reduced Hemoglobin 9.8 %THb (0-5.0); Total Hemoglobin 12.4 g/dL (12.0-18.0); pH ABG 7.353 (7.350-7.450)
[2023-02-08 00:50] LABS: PCO2 ABG 87.8 mmHg (35.0-45.0)
[2023-02-08 00:51] LABS: Device NON-INVASIVE VENT; Modified Allen's Test Pass; Site Drawn RIGHT RADIAL
[2023-02-08 00:52] LABS: Non-Invasive Expiratory Pressure 10 CMH2O; Non-Invasive Inspiratory Pressure 22 CMH2O; Non-Invasive Vent Rate 18 /MIN
[2023-02-08 01:17] LABS: Folic Acid 16.4 ng/mL (2.76->20)
[2023-02-08] MEDS: dexmedeTOMIDine 400 MCG/100 ML 400 MCG/100 ML BAG 5.58 MCG IV CONT (01:46)
[2023-02-08] MEDS: IPRATROPIUM BR 0.02% INH SOLN 0.5 MG/2.5 ML VIAL INHALATION ×3 (02:30→19:49)
[2023-02-08] MEDS: LEVALBUTEROL NEB 1.25 MG/3 ML 0.63 MG INHALATION ×3 (02:30→19:48)
[2023-02-08] MEDS: hydrALAZINE HCL 20 MG/ML VIAL 10 MG IV PUSH ×2 (03:23→19:33)
[2023-02-08 05:49] LABS: Basophils Percent Auto 0.2 % (0.2-1.2); Hematocrit 39.2 % (42.0-52.0); Hemoglobin 11.2 g/dL (14.0-18.0); Immature Granulocyte Absolute 0.17 K/mm3 (0.00-0.031); Immature Granulocyte Percent A 1.9 % (0-0.5); Lymphocytes Percent Auto 6.8 % (18.3-44.2); Mean Corpuscular HGB Conc 28.6 g/dl (32-36); Mean Corpuscular Volume 101.6 fl (80-100); Mean Platelet Volume 10.1 fl (7.4-10.4); Monocytes Absolute Auto 0.2 K/mm3 (0.1-0.6); Monocytes Percent Auto 2.4 % (2.6-8.5); Neutrophils Absolute Auto 7.8 K/mm3 (1.3-6.7); Neutrophils Percent Auto 88.7 % (45.5-73.1); Platelet Count Result 147 k/mm3 (150-375); Red Blood Count 3.86 M/mm3 (4.6-6.20); Red Cell Distribution Width 13.3 % (11.5-14.5); White Blood Count 8.8 K/mm3 (4.5-10.0)
[2023-02-08] MEDS: CEFEPIME 2 GM in SODIUM CHLORIDE 0.9% IV 50 ML IVPB (05:59)
[2023-02-08 06:00] LABS: INR 1.6; Prothrombin Time 18.7 Seconds (11.1-14.7)
[2023-02-08] MEDS: methylPREDNISolone SOD SUCC 40 MG VIAL IV PUSH ×3 (06:01→21:58)
[2023-02-08 06:02] LABS: Alanine Aminotransferase 28 U/L (6-50); Albumin Level 3.7 g/dL (3.5-5.1); Alkaline Phosphatase 120 U/L (38-126); Aspartate Amino Transferase 25 U/L (17-59); Bilirubin,Total 0.7 mg/dL (0.2-1.3); Blood Urea Nitrogen 19 mg/dL (9-20); Calcium 8.4 mg/dL (8.4-10.2); Carbon Dioxide > 40 mmol/L (22-30); Chloride 78 mmol/L (98-107); Estimated CRCL calculation 107 ml/min; Estimated Glomerular Filt Rate > 60; Glucose 370 mg/dL (65-110); Potassium 4.8 mmol/L (3.4-5.0); Sodium 133 mmol/L (137-145)
[2023-02-08 06:03] LABS: Magnesium 1.8 mg/dL (1.6-2.3); Phosphorus 2.4 mg/dL (2.5-4.5)
[2023-02-08 06:12] LABS: Troponin I 0.017 ng/mL (0.000-0.034)
[2023-02-08 06:26] LABS: Hypochromasia 2+ (NORMAL); Platelet Estimate Adequate (Adequate); Schistocytes None Seen (NORMAL); Stomatocytes 1+ (NORMAL)
[2023-02-08] MEDS: FUROSEMIDE INJ 40 MG/4 ML VIAL IV PUSH ×2 (08:09→18:39)
[2023-02-08] MEDS: ENOXAPARIN 40 MG/0.4 ML SYRINGE SUB-Q (08:09)
[2023-02-08 08:20] LABS: Glucose Point of Care 321 mg/dl (65-105)
[2023-02-08] MEDS: INSULIN ASPART (*BKC) 100 UNITS/ML SUB-Q ×4 (08:31→20:51)
[2023-02-08] MEDS: dexmedeTOMIDine 400 MCG/100 ML 400 MCG/100 ML BAG 16.74 MCG IV CONT (08:37)
--- NOTE | 2023-02-08 09:27 | WPDCNINT ---
Assessment and Plan Assessment and plan (1) Acute on chronic respiratory failure with hypoxia and hypercapnia: Code(s): J96.21 - Acute and chronic respiratory failure with hypoxia; J96.22 - Acute and chronic respiratory failure with hypercapnia Status: Acute Assessment and Plan: Patient presented with acute on chronic respiratory failure with elevated pCO2 low of 150 and hypoxio. Patient has history of CHF and COPD chest x-ray the ED showed probable mild pulmonary edema and small bilateral pleural effusions. Extensive calcified right pleural plaque is unchanged. BNP 447 He was started on BiPAP and his ABG has improved and pCO2 was improved to 87 although he is still requiring 60% FiO2. Change BiPAP to 20/8 I have wean down FiO2 to 50% and will continue adjusting BiPAP through the day to try to wean him off Continue steroids Continue Lasix Patient was started on empiric antibiotics although it is unlikely to be pneumonia as patient has normal WBC, afebrile, normal lactic and procalcitonin level Blood cultures have been sent and are pending. Will treat with empiric Rocephin and doxycycline at this time Bronchodilators (2) Pulmonary edema: Code(s): J81.1 - Chronic pulmonary edema Status: Acute Assessment and Plan: See above (3) COPD exacerbation: Code(s): J44.1 - Chronic obstructive pulmonary disease with (acute) exacerbation Status: Acute Assessment and Plan: See above (4) Pneumonia: Code(s): J18.9 - Pneumonia, unspecified organism Status: Acute Assessment and Plan: See above (5) Diabetes mellitus: Code(s): E11.9 - Type 2 diabetes mellitus without complications Status: Acute Assessment and Plan: Lantus and sliding scale NPO this time (6) Chronic anticoagulation: Code(s): 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 His INR was subtherapeutic by anticipate his INR today increase as patient is now on antibiotics (7) Congestive heart failure: Qualifiers: Heart failure chronicity: acute on chronic Heart failure type: unspecified Qualified Code(s): I50.9 - Heart failure, unspecified Code(s): I50.9 - Heart failure, unspecified Status: Acute Assessment and Plan: Echocardiogram in November of 2021 showed EF of 40-45 %, diastolic dysfunction, and hypertension IV Lasix Repeat echocardiogram (8) Atrial flutter: Code(s): I48.92 - Unspecified atrial flutter Status: Acute Assessment and Plan: Continue diltiazem and warfarin Change diltiazem to q.6 hours Plan DVT prophylaxis -warfarin Stress ulcer prophylaxis - Nutrition - NPO Code Status - Full Code Total Critical Care Time - 35 minutes Due to a high probability of clinically significant, life threatening deterioration, the patient required my highest level of preparedness to intervene emergently and I personally spent this critical care time directly and personally managing the patient. This critical care time included obtaining a history; examining the patient; pulse oximetry; ordering and review of studies; arranging urgent treatment with development of a management plan; evaluation of patient's response to treatment; frequent reassessment; and discussions with other providers. It was exclusive of separately billable procedures and treating other patients and teaching time. 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
[2023-02-08] MEDS: DOXYCYCLINE 100 MG/NS 100 ML 100 MG/100 ML BAG IVPB ×2 (10:11→20:47)
[2023-02-08 10:18] LABS: Procalcitonin 0.1 ng/mL
[2023-02-08] MEDS: FAMOTIDINE 20 MG/2 ML VIAL IV PUSH (10:21)
--- NOTE | 2023-02-08 11:27 | PC.NURSE ---
02/08/23. 1125. Updates provided to manager learning Tia from [facility]
--- NOTE | 2023-02-08 11:28 | PCFNICU ---
ICU Rounding Note: Pt current nutrition is NPO. Last recorded weight is 112.5 kg. Bowel Motility: No Bm reported Labs Reviewed:Glu 370, Na 133, Hct 39.2,Hgb 11.2 Meds Noted:Precedex, Rocephin, NovoLog, Lasix, Solu Medrol Skin: WNL Additional Notes: Patient current with Bipap. NPO at this time. NO plans for nutrition today. Following daily in ICU rounds.
--- NOTE | 2023-02-08 12:22 | PC.NURSE ---
02/08/23 12:22. Updates provided to nurse Lily at [facility].
[2023-02-08 12:28] LABS: Glucose Point of Care 311 mg/dl (65-105)
--- NOTE | 2023-02-08 12:54 | PM.IMPN ---
Progress Note: A&P Assessment and Plan (1) COPD exacerbation: Code(s): J44.1 - Chronic obstructive pulmonary disease with (acute) exacerbation Status: Acute Assessment and Plan: Associated with acute hypoxemic hypercapnic respiratory failure Nebulizer treatment IV steroid IV antibiotics Reviewed CBC CMP chest x-ray 02/08/2023 interval history: patent with hypercarbic respiratory failure on BiPAP most likely multifactorial secondary to exacerbation of COPD, treated with methylprednisone and bronchodilator, pneumonia treated with cefepime and and vancomycin, and congestive heart failure with elevated BNP, and mild reduced ejection fraction with a 45% and abnormal diastolic function being diuresed, as well as hypoventilation with morbid obesity, patient on BiPAP discussed with mortising machine operator will continue to monitor and further recommendation to follow. (2) Atrial flutter: Code(s): I48.92 - Unspecified atrial flutter Status: Acute Assessment and Plan: Pending home medication reconciliation Patient on Cardizem and Coumadin at home Pending home medication reconciliation Added p.r.n. metoprolol (3) Acute on chronic respiratory failure with hypoxia and hypercapnia: Code(s): J96.21 - Acute and chronic respiratory failure with hypoxia; J96.22 - Acute and chronic respiratory failure with hypercapnia Status: Acute Assessment and Plan: Required BiPAP will admit to ICU Reviewed ABG discussed with ER physician reviewed chest x-ray (4) Pneumonia: Code(s): J18.9 - Pneumonia, unspecified organism Status: Acute Assessment and Plan: I think most likely patient has pulmonary edema less likely patient has pneumonia Continue broad-spectrum IV antibiotic Follow culture results Consider DC antibiotic after 48 hours if no evidence of infection (5) Combined systolic and diastolic congestive heart failure: Code(s): I50.40 - Unspecified combined systolic (congestive) and diastolic (congestive) heart failure Status: Acute Assessment and Plan: Acute and of chronic combined systolic and diastolic CHF exacerbation associated with pulmonary edema Start diuresis as tolerated by blood pressure Echo from 11/2021 showed ejection fraction 40% Consider cardiology consult in a.m. 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 Status: Acute Assessment and Plan: Follow INR daily Pending home medication reconciliation (7) History of DVT (deep vein thrombosis): Code(s): Z86.718 - Personal history of other venous thrombosis and embolism Status: Chronic Assessment and Plan: Follow INR daily Pending home medication reconciliation (8) Insulin dependent diabetes mellitus: Status: Chronic Assessment and Plan: Insulin sliding scale Patient on long-acting insulin at home pending home medication reconciliation (9) Obstructive sleep apnea: Code(s): G47.33 - Obstructive sleep apnea (adult) (pediatric) Status: Acute Assessment and Plan: CPAP Subjective Date/time seen: 02/08/23 12:54 HPI-Chief Complaint: Shortness of breath 62 years old male with past medical history of COPD chronic hypercapnic respiratory failure obstructive sleep apnea 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
[2023-02-08] MEDS: dilTIAZem HCL 30 MG TABLET PO (12:58)
[2023-02-08] MEDS: POTASSIUM/PHOSPHORUS/SODIUM 1.5 GM PACKET 1 PACKET PO (13:54)
[2023-02-08] MEDS: dexmedeTOMIDine 400 MCG/100 ML 400 MCG/100 ML BAG 25.11 MCG IV CONT (16:10)
[2023-02-08 18:46] LABS: Glucose Point of Care 281 mg/dl (65-105)
[2023-02-08] MEDS: dexmedeTOMIDine 400 MCG/100 ML 400 MCG/100 ML BAG 27.9 MCG IV CONT ×2 (18:50→22:52)
[2023-02-08] MEDS: INSULIN GLARGINE (*BKC) 100 UNITS/ML 10 UNITS SUB-Q (20:50)
[2023-02-08 21:01] LABS: Glucose Point of Care 297 mg/dl (65-105)
[2023-02-08] MEDS: QUEtiapine FUMARATE 25 MG TABLET PO (21:58)
[2023-02-09] VITALS (35 sets, daily range): BP systolic 113–170; BP diastolic 67–108; PULSE 70–122; RESP 15–52; TEMP 36.4–37.9; O2SAT 88–99; BMI 40.6
[2023-02-09 00:43] LABS: Glucose Point of Care 299 mg/dl (65-105)
[2023-02-09] MEDS: dilTIAZem HCL 30 MG TABLET PO ×4 (00:45→16:14)
[2023-02-09] MEDS: INSULIN ASPART (*BKC) 100 UNITS/ML SUB-Q ×5 (00:45→16:07)
[2023-02-09] MEDS: hydrALAZINE HCL 20 MG/ML VIAL 10 MG IV PUSH ×2 (01:43→18:10)
[2023-02-09] MEDS: IPRATROPIUM BR 0.02% INH SOLN 0.5 MG/2.5 ML VIAL INHALATION ×4 (02:23→21:14)
[2023-02-09] MEDS: LEVALBUTEROL NEB 1.25 MG/3 ML 0.63 MG INHALATION ×4 (02:23→21:14)
[2023-02-09] MEDS: dexmedeTOMIDine 400 MCG/100 ML 400 MCG/100 ML BAG 27.9 MCG IV CONT ×2 (02:31→05:59)
[2023-02-09 04:54] LABS: Alveolar/Arterial O2 Gradient 312.9 mmHg; Carboxyhemoglobin 0.2 % THb (0-2.0); Fractional Inspired Oxygen 60 %; HCO3 ABG 40.3 mEq/l (22.0-26.0); Methemoglobin ABG 0.3 %THb (0-1.5); Oxygen Content ABG 16.7 %vol (16.0-22.0); Oxygen Saturation ABG 91.7 % (95.0-100.0); Oxyhemoglobin 90.5 % THb (90.0-100.0); PCO2 ABG 52.2 mmHg (35.0-45.0); PO2 ABG 57.5 mmHg (80.0-100.0); PO2 FiO2 Ratio Arterial Blood 0.96 %; Total Hemoglobin 13.1 g/dL (12.0-18.0)
[2023-02-09 04:55] LABS: Device NON-INVASIVE VENT; Modified Allen's Test Pass; Site Drawn LEFT RADIAL; pH ABG 7.506 (7.350-7.450)
[2023-02-09 04:56] LABS: Non-Invasive Expiratory Pressure 8 CMH2O; Non-Invasive Inspiratory Pressure 20 CMH2O; Non-Invasive Vent Rate 12 /MIN
[2023-02-09] MEDS: methylPREDNISolone SOD SUCC 40 MG VIAL IV PUSH (05:53)
[2023-02-09 05:56] LABS: Basophils Percent Auto 0.2 % (0.2-1.2); Hematocrit 40.1 % (42.0-52.0); Hemoglobin 12.1 g/dL (14.0-18.0); Immature Granulocyte Percent A 1.9 % (0-0.5); Lymphocytes Percent Auto 6.5 % (18.3-44.2); Mean Corpuscular HGB Conc 30.2 g/dl (32-36); Mean Corpuscular Volume 96.2 fl (80-100); Monocytes Absolute Auto 0.5 K/mm3 (0.1-0.6); Neutrophils Absolute Auto 9.2 K/mm3 (1.3-6.7); Neutrophils Percent Auto 86.4 % (45.5-73.1); Nucleated Red Blood Cells Perc 0.2 % (0.0-0.2); Platelet Count Result 168 k/mm3 (150-375); Red Blood Count 4.17 M/mm3 (4.6-6.20); Red Cell Distribution Width 13.5 % (11.5-14.5); White Blood Count 10.7 K/mm3 (4.5-10.0)
[2023-02-09 05:59] LABS: Alanine Aminotransferase 28 U/L (6-50); Alkaline Phosphatase 116 U/L (38-126); Aspartate Amino Transferase 28 U/L (17-59); Bilirubin,Total 0.6 mg/dL (0.2-1.3); Blood Urea Nitrogen 23 mg/dL (9-20); Calcium 8.7 mg/dL (8.4-10.2); Carbon Dioxide > 40 mmol/L (22-30); Chloride 83 mmol/L (98-107); Estimated CRCL calculation 105 ml/min; Estimated Glomerular Filt Rate > 60; Glucose 359 mg/dL (65-110); Potassium 3.5 mmol/L (3.4-5.0); Sodium 133 mmol/L (137-145)
[2023-02-09 06:07] LABS: Glucose Point of Care 298 mg/dl (65-105)
[2023-02-09 06:36] LABS: INR 1.3; Prothrombin Time 15.6 Seconds (11.1-14.7)
[2023-02-09 07:32] LABS: Glucose Point of Care 334 mg/dl (65-105)
[2023-02-09] MEDS: ASPIRIN 81 MG ENTERIC TABLET PO (07:37)
[2023-02-09] MEDS: ATORVASTATIN 10 MG TABLET PO (07:37)
[2023-02-09] MEDS: risperiDONE 1 MG TABLET PO (07:37)
[2023-02-09] MEDS: ENOXAPARIN 40 MG/0.4 ML SYRINGE SUB-Q (07:38)
[2023-02-09] MEDS: DOXYCYCLINE 100 MG/NS 100 ML 100 MG/100 ML BAG IVPB ×2 (07:38→20:51)
[2023-02-09] MEDS: FAMOTIDINE 20 MG/2 ML VIAL IV PUSH (07:39)
[2023-02-09] MEDS: FUROSEMIDE INJ 40 MG/4 ML VIAL IV PUSH (07:40)
[2023-02-09] MEDS: polyethylene glycoL 3350 17 GM POWD.PACK PO (07:42)
[2023-02-09] MEDS: POTASSIUM CHLORIDE 20 MEQ PACKET (FOR LIQUID) 40 MEQ PO (08:11)
[2023-02-09] MEDS: INSULIN GLARGINE (*BKC) 100 UNITS/ML 20 UNITS SUB-Q (08:12)
--- NOTE | 2023-02-09 08:43 | PCSTNOTE ---
Nurse reported patient is not ready for Bedside Swallow Evaluation this morning 8:30. Asked to return later.
--- NOTE | 2023-02-09 09:03 | WPDINTPN ---
Progress Note: A&P Assessment and Plan (1) Acute on chronic respiratory failure with hypoxia and hypercapnia: Code(s): J96.21 - Acute and chronic respiratory failure with hypoxia; J96.22 - Acute and chronic respiratory failure with hypercapnia Status: Acute Assessment and Plan: Patient presented with acute on chronic respiratory failure with elevated pCO2 low of 150 and hypoxio. Patient has history of CHF and COPD chest x-ray the ED showed probable mild pulmonary edema and small bilateral pleural effusions. Extensive calcified right pleural plaque is unchanged. BNP 447 He was started on BiPAP and his ABG clinical symptoms have improved Continue but decrease dose steroids Continue Lasix but decrease dose Patient was started on empiric antibiotics although it is unlikely to be pneumonia as patient has normal WBC, afebrile, normal lactic and procalcitonin level Blood cultures a growing Gram-positive cocci and vancomycin has been resumed. One out of those 2 bottles is growing Staph epidermis which is likely contaminant. Will wait for final identification from both sets Continue empiric vancomycin, Rocephin and doxycycline at this time Bronchodilators (2) Pulmonary edema: Code(s): J81.1 - Chronic pulmonary edema Status: Acute Assessment and Plan: See above (3) COPD exacerbation: Code(s): J44.1 - Chronic obstructive pulmonary disease with (acute) exacerbation Status: Acute Assessment and Plan: See above (4) Pneumonia: Code(s): J18.9 - Pneumonia, unspecified organism Status: Acute Assessment and Plan: See above (5) Diabetes mellitus: Code(s): E11.9 - Type 2 diabetes mellitus without complications Status: Acute Assessment and Plan: Lantus and sliding scale Swallow evaluation ordered (6) Chronic anticoagulation: Code(s): 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 His INR was subtherapeutic by anticipate his INR today increase as patient is now on antibiotics (7) Congestive heart failure: Qualifiers: Heart failure chronicity: acute on chronic Heart failure type: unspecified Qualified Code(s): I50.9 - Heart failure, unspecified Code(s): I50.9 - Heart failure, unspecified Status: Acute Assessment and Plan: Echocardiogram in November of 2021 showed EF of 40-45 %, diastolic dysfunction, and hypertension IV Lasix Repeat echocardiogram (8) Atrial flutter: Code(s): I48.92 - Unspecified atrial flutter Status: Acute Assessment and Plan: Continue diltiazem and warfarin Change diltiazem to q.6 hours (9) Delirium: Code(s): R41.0 - Disorientation, unspecified Status: Acute Assessment and Plan: Currently on Precedex infusion which will be weaned Seroquel started Plan DVT prophylaxis -warfarin Nutrition - NPO. Bedside swallow evaluation ordered Code Status - Full Code Total Critical Care Time - 32 minutes Due to a high probability of clinically significant, life threatening deterioration, the patient required my highest level of preparedness to intervene emergently and I personally spent this critical care time directly and personally managing the patient. This critical care time included obtaining a history; examining the patient; pulse oximetry; ordering and review of studies; arranging urgent treatment with development of a management plan; evaluation of patient's response to treatment; frequent reassessment; and discussions with other providers. It was exclusive of separately billable procedures and treating other patients and teaching time. Please see Assessment and Plan section and the rest of the note for further information on patient assessment and treatment Subjective Date/time seen: 02/09/23 09:03 Overnight events reviewed. Low-grade fever yesterda
[2023-02-09] MEDS: UMECLIDINIUM/VILANTEROL 62.5-25 MCG ELLIPTA 1 PUFF INHALATION (09:20)
[2023-02-09] MEDS: oxyCODONE/ACETAMINOPHEN (*CRX) 5-325 MG TABLET 1 TABLET PO ×2 (10:58→16:12)
[2023-02-09] MEDS: LORazepam INJ (*CRX) 2 MG/ML VIAL 0.5 MG IV PUSH (11:33)
[2023-02-09 11:35] LABS: Glucose Point of Care 390 mg/dl (65-105)
--- NOTE | 2023-02-09 14:26 | PCSTNOTE ---
Please refer to the Bedside Swallow Evaluation in the EMR. Please note, silent aspiration cannot be ruled out at bedside.
[2023-02-09 15:40] LABS: Glucose Point of Care 219 mg/dl (65-105)
[2023-02-09] MEDS: WARFARIN (*PBKC) 7.5 MG TABLET PO (16:14)
--- NOTE | 2023-02-09 16:35 | PM.IMPN ---
Progress Note: A&P Assessment and Plan (1) COPD exacerbation: Code(s): J44.1 - Chronic obstructive pulmonary disease with (acute) exacerbation Status: Acute Assessment and Plan: Associated with acute hypoxemic hypercapnic respiratory failure Nebulizer treatment IV steroid IV antibiotics Reviewed CBC CMP chest x-ray 02/09/2023 interval history: patent with hypercarbic respiratory failure was on BiPAP off BIPAP today, most likely multifactorial secondary to exacerbation of COPD, treated with methylprednisone and bronchodilator, pneumonia treated with cefepime and and vancomycin, and congestive heart failure with elevated BNP, and mild reduced ejection fraction with a 45% and abnormal diastolic function being diuresed, as well as hypoventilation with morbid obesity, patient off BiPAP as patient pCO2 is improving, discussed with trust clerk does not patient have penumonia, most likely combination of CHF and COPD, his steroids being tapered, will continue to monitor and further recommendation to follow. (2) Atrial flutter: Code(s): I48.92 - Unspecified atrial flutter Status: Acute Assessment and Plan: Pending home medication reconciliation Patient on Cardizem and Coumadin at home Pending home medication reconciliation Added p.r.n. metoprolol (3) Acute on chronic respiratory failure with hypoxia and hypercapnia: Code(s): J96.21 - Acute and chronic respiratory failure with hypoxia; J96.22 - Acute and chronic respiratory failure with hypercapnia Status: Acute Assessment and Plan: Required BiPAP will admit to ICU Reviewed ABG discussed with ER physician reviewed chest x-ray (4) Pneumonia: Code(s): J18.9 - Pneumonia, unspecified organism Status: Acute Assessment and Plan: I think most likely patient has pulmonary edema less likely patient has pneumonia Continue broad-spectrum IV antibiotic Follow culture results Consider DC antibiotic after 48 hours if no evidence of infection (5) Combined systolic and diastolic congestive heart failure: Code(s): I50.40 - Unspecified combined systolic (congestive) and diastolic (congestive) heart failure Status: Acute Assessment and Plan: Acute and of chronic combined systolic and diastolic CHF exacerbation associated with pulmonary edema Start diuresis as tolerated by blood pressure Echo from 11/2021 showed ejection fraction 40% Consider cardiology consult in a.m. (6) Chronic anticoagulation: Code(s): Z79.01 - residential (current) use of anticoagulants Status: Acute Assessment and Plan: Follow INR daily Pending home medication reconciliation (7) History of DVT (deep vein thrombosis): Code(s): Z86.718 - Personal history of other venous thrombosis and embolism Status: Chronic Assessment and Plan: Follow INR daily Pending home medication reconciliation (8) Insulin dependent diabetes mellitus: Status: Chronic Assessment and Plan: Insulin sliding scale Patient on long-acting insulin at home pending home medication reconciliation (9) Obstructive sleep apnea: Code(s): G47.33 - Obstructive sleep apnea (adult) (pediatric) Status: Acute Assessment and Plan: CPAP Subjective Date/time seen: 02/09/23 16:35 Associated with acute hypoxemic hypercapnic respiratory failure Nebulizer treatment IV steroid IV antibiotics Reviewed CBC CMP chest x-ray 02/09/2023 interval history: patent with hypercarbic respiratory failure was on BiPAP off BIPAP today, most likely multifactorial secondary to exacerbation of COPD, treated with methylprednisone and bronchodilator, pneumonia treated with cefepime and and vancomycin, and congestive heart failure with elevated BNP, and mild reduced ejection fraction with a 45% and abnormal diastolic function being diuresed, as well as hypoventilation with morbid obesity, patient off BiPAP as patient pCO2 is improving, discussed w
[2023-02-09] MEDS: ENOXAPARIN 100 MG/ML SYRINGE SUB-Q (20:52)
[2023-02-09] MEDS: QUEtiapine FUMARATE 25 MG TABLET PO (20:52)
[2023-02-09 21:01] LABS: Glucose Point of Care 125 mg/dl (65-105)
[2023-02-10] VITALS (24 sets, daily range): BP systolic 120–154; BP diastolic 73–108; PULSE 93–129; RESP 19–36; TEMP 36.5–37.7; O2SAT 92–100
[2023-02-10] MEDS: dilTIAZem HCL 30 MG TABLET PO ×2 (00:24→05:45)
[2023-02-10 00:29] LABS: Glucose Point of Care 144 mg/dl (65-105)
[2023-02-10 04:42] LABS: Basophils Percent Auto 0.2 % (0.2-1.2); Hematocrit 39.7 % (42.0-52.0); Hemoglobin 12.5 g/dL (14.0-18.0); Immature Granulocyte Absolute 0.27 K/mm3 (0.00-0.031); Immature Granulocyte Percent A 1.6 % (0-0.5); Lymphocytes Percent Auto 7.2 % (18.3-44.2); Mean Corpuscular HGB Conc 31.5 g/dl (32-36); Mean Corpuscular Hemoglobin 29.3 pg (26-34); Mean Corpuscular Volume 93.2 fl (80-100); Mean Platelet Volume 9.7 fl (7.4-10.4); Monocytes Absolute Auto 1.9 K/mm3 (0.1-0.6); Monocytes Percent Auto 11.6 % (2.6-8.5); Neutrophils Absolute Auto 13.2 K/mm3 (1.3-6.7); Neutrophils Percent Auto 79.4 % (45.5-73.1); Nucleated Red Blood Cells Perc 0.2 % (0.0-0.2); Platelet Count Result 206 k/mm3 (150-375); Red Blood Count 4.26 M/mm3 (4.6-6.20); Red Cell Distribution Width 14.3 % (11.5-14.5); White Blood Count 16.7 K/mm3 (4.5-10.0)
[2023-02-10 05:02] LABS: INR 1.3; Prothrombin Time 15.5 Seconds (11.1-14.7)
[2023-02-10 05:11] LABS: Alanine Aminotransferase 27 U/L (6-50); Albumin Level 3.7 g/dL (3.5-5.1); Alkaline Phosphatase 111 U/L (38-126); Aspartate Amino Transferase 33 U/L (17-59); Bilirubin,Total 0.6 mg/dL (0.2-1.3); Blood Urea Nitrogen 36 mg/dL (9-20); Calcium 8.3 mg/dL (8.4-10.2); Carbon Dioxide > 40 mmol/L (22-30); Chloride 83 mmol/L (98-107); Estimated CRCL calculation 83 ml/min; Estimated Glomerular Filt Rate > 60; Glucose 190 mg/dL (65-110); Potassium 3.4 mmol/L (3.4-5.0); Sodium 132 mmol/L (137-145)
[2023-02-10 08:04] LABS: Glucose Point of Care 192 mg/dl (65-105)
[2023-02-10] MEDS: risperiDONE 1 MG TABLET PO (08:19)
[2023-02-10] MEDS: POTASSIUM CHLORIDE 20 MEQ PACKET (FOR LIQUID) 40 MEQ PO (08:19)
[2023-02-10] MEDS: ATORVASTATIN 10 MG TABLET PO (08:19)
[2023-02-10] MEDS: ENOXAPARIN 100 MG/ML SYRINGE SUB-Q ×2 (08:20→21:11)
[2023-02-10] MEDS: FAMOTIDINE 20 MG/2 ML VIAL IV PUSH (08:20)
[2023-02-10] MEDS: FUROSEMIDE INJ 40 MG/4 ML VIAL IV PUSH (08:20)
[2023-02-10] MEDS: methylPREDNISolone SOD SUCC 40 MG VIAL IV PUSH (08:21)
[2023-02-10] MEDS: polyethylene glycoL 3350 17 GM POWD.PACK PO (08:21)
[2023-02-10] MEDS: INSULIN GLARGINE (*BKC) 100 UNITS/ML 20 UNITS SUB-Q (08:29)
[2023-02-10] MEDS: ASPIRIN 81 MG ENTERIC TABLET PO (08:38)
[2023-02-10] MEDS: DOXYCYCLINE 100 MG/NS 100 ML 100 MG/100 ML BAG IVPB ×2 (08:43→21:10)
[2023-02-10] MEDS: LEVALBUTEROL NEB 1.25 MG/3 ML 0.63 MG INHALATION ×4 (08:50→21:54)
[2023-02-10] MEDS: IPRATROPIUM BR 0.02% INH SOLN 0.5 MG/2.5 ML VIAL INHALATION ×4 (08:51→21:54)
[2023-02-10] MEDS: UMECLIDINIUM/VILANTEROL 62.5-25 MCG ELLIPTA 1 PUFF INHALATION (09:00)
--- NOTE | 2023-02-10 09:12 | WPDINTPN ---
Progress Note: A&P Assessment and Plan (1) Acute on chronic respiratory failure with hypoxia and hypercapnia: Code(s): J96.21 - Acute and chronic respiratory failure with hypoxia; J96.22 - Acute and chronic respiratory failure with hypercapnia Status: Acute Assessment and Plan: Patient presented with acute on chronic respiratory failure with elevated pCO2 low of 150 and hypoxia. Patient has history of CHF and COPD Chest x-ray the ED showed probable mild pulmonary edema and small bilateral pleural effusions. Extensive calcified right pleural plaque is unchanged. BNP 447 He was started on BiPAP and his ABG clinical symptoms have improved Continue steroids Continue Lasix Patient was started on empiric antibiotics although it is unlikely to be pneumonia as patient has normal WBC, afebrile, normal lactic and procalcitonin level. Blood cultures in One out of those 2 bottles is growing Staph epidermis which is likely contaminant. Will discontinue vancomycin Continue empiric Rocephin and doxycycline at this time Bronchodilators (2) Pulmonary edema: Code(s): J81.1 - Chronic pulmonary edema Status: Acute Assessment and Plan: See above (3) COPD exacerbation: Code(s): J44.1 - Chronic obstructive pulmonary disease with (acute) exacerbation Status: Acute Assessment and Plan: See above (4) Pneumonia: Code(s): J18.9 - Pneumonia, unspecified organism Status: Acute Assessment and Plan: See above (5) Diabetes mellitus: Code(s): E11.9 - Type 2 diabetes mellitus without complications Status: Acute Assessment and Plan: Lantus and sliding scale Repeat swallow evaluation ordered (6) Chronic anticoagulation: Code(s): Z79.01 - [facility] (current) use of anticoagulants Status: Acute Assessment and Plan: Patient on warfarin which will be continued. His INR was subtherapeutic and he has been started on Lovenox she will be continue (7) Congestive heart failure: Qualifiers: Heart failure chronicity: acute on chronic Heart failure type: unspecified Qualified Code(s): I50.9 - Heart failure, unspecified Code(s): I50.9 - Heart failure, unspecified Status: Acute Assessment and Plan: Echocardiogram in November of 2021 showed EF of 40-45 %, diastolic dysfunction, and hypertension IV Lasix Repeat echocardiogram (8) Atrial flutter: Code(s): I48.92 - Unspecified atrial flutter Status: Acute Assessment and Plan: Continue diltiazem and warfarin Increase diltiazem dose (9) Delirium: Code(s): R41.0 - Disorientation, unspecified Status: Acute Assessment and Plan: Off of precedex infusion Continue seroquel Plan DVT prophylaxis -warfarin Nutrition - NPO. Bedside swallow evaluation ordered Code Status - Full Code Incentive spirometry, PT OT Transfer out ICU today Subjective Date/time seen: 02/10/23 Overnight events reviewed. Low-grade fever overnight Wore BiPAP overnight This morning states he feels better and denies any complaints. He states he does not have any shortness of breath or cough. Denies any chest pain or abdominal pain. He states he would like to eat some food has he is not sure why he is not being fed. All other systems were reviewed and were negative Pressure elevated Review of Systems Review of Systems: All systems reviewed & are unremarkable except as noted in HPI and below (Subjective) Exam Narrative: General: Pt is alert awake on BiPAP and no respiratory distress Lungs/Chest: Trachea central Clear BS B/L, No crackles or wheezing. Decreased air movement throughout Cardiac: RRR. Normal S1 S2. No murmurs Circulation: Pedal pulses are intact and symmetrical. Abdomen: Normal bowel sounds.. Soft. NT. ND. Extremities: No clubbing, cyanosis or edema. Warm. No significant edema, chronic venostasis changes : Aguero in place Neurologic: Follo
[2023-02-10] MEDS: dilTIAZem HCL 30 MG TABLET 45 MG PO ×2 (11:02→17:21)
--- NOTE | 2023-02-10 11:36 | PCPTNOTE ---
Patient now has 2 bed rest orders, will check on patient later.
[2023-02-10] MEDS: INSULIN ASPART (*BKC) 100 UNITS/ML SUB-Q ×3 (11:43→21:16)
--- NOTE | 2023-02-10 11:44 | PCOTNOTE ---
Attempted OT evaluation; pt. have x2 bedrest orders. Will attempt once order is clear to get out of bed
[2023-02-10 11:54] LABS: Glucose Point of Care 250 mg/dl (65-105)
--- NOTE | 2023-02-10 13:07 | PM.IMPN ---
Progress Note: A&P Assessment and Plan (1) COPD exacerbation: Code(s): J44.1 - Chronic obstructive pulmonary disease with (acute) exacerbation Status: Acute Assessment and Plan: Associated with acute hypoxemic hypercapnic respiratory failure Nebulizer treatment IV steroid IV antibiotics Reviewed CBC CMP chest x-ray 02/10/2023 interval history: patent with hypercarbic respiratory failure was on BiPAP since 02/09 patient is off BIPAP, most likely multifactorial secondary to exacerbation of COPD, treated with methylprednisone and bronchodilator, patient clinicall symptoms are improving, will taper methylprednisone to 40mg qd, pneumonia treated with cefepime and and vancomycin, blood C/S is growing Staphylococcus epidermidis and Streptococcus warneri concerning for MRSA suspect contamination glove cuffer stop vancomycin will continue ceftriaxone and doxycycline, and congestive heart failure with elevated BNP, and mild reduced ejection fraction with a 45% and abnormal diastolic function being diuresed, as well as hypoventilation with morbid obesity, patient off BiPAP as patient pCO2 is improving, discussed with glove cuffer does not suspect patient has penumonia, most likely combination of CHF and COPD, his steroids being tapered, will continue to monitor and further recommendation to follow. (2) Atrial flutter: Code(s): I48.92 - Unspecified atrial flutter Status: Acute Assessment and Plan: Pending home medication reconciliation Patient on Cardizem and Coumadin at home Pending home medication reconciliation Added p.r.n. metoprolol (3) Acute on chronic respiratory failure with hypoxia and hypercapnia: Code(s): J96.21 - Acute and chronic respiratory failure with hypoxia; J96.22 - Acute and chronic respiratory failure with hypercapnia Status: Acute Assessment and Plan: Required BiPAP will admit to ICU Reviewed ABG discussed with ER physician reviewed chest x-ray (4) Pneumonia: Code(s): J18.9 - Pneumonia, unspecified organism Status: Acute Assessment and Plan: I think most likely patient has pulmonary edema less likely patient has pneumonia Continue broad-spectrum IV antibiotic Follow culture results Consider DC antibiotic after 48 hours if no evidence of infection (5) Combined systolic and diastolic congestive heart failure: Code(s): I50.40 - Unspecified combined systolic (congestive) and diastolic (congestive) heart failure Status: Acute Assessment and Plan: Acute and of chronic combined systolic and diastolic CHF exacerbation associated with pulmonary edema Start diuresis as tolerated by blood pressure Echo from 11/2021 showed ejection fraction 40% Consider cardiology consult in a.m. (6) Chronic anticoagulation: Code(s): Z79.01 - group home (current) use of anticoagulants Status: Acute Assessment and Plan: Follow INR daily Pending home medication reconciliation (7) History of DVT (deep vein thrombosis): Code(s): Z86.718 - Personal history of other venous thrombosis and embolism Status: Chronic Assessment and Plan: Follow INR daily Pending home medication reconciliation (8) Insulin dependent diabetes mellitus: Status: Chronic Assessment and Plan: Insulin sliding scale Patient on long-acting insulin at home pending home medication reconciliation (9) Obstructive sleep apnea: Code(s): G47.33 - Obstructive sleep apnea (adult) (pediatric) Status: Acute Assessment and Plan: CPAP Subjective Date/time seen: 02/10/23 13:07 Associated with acute hypoxemic hypercapnic respiratory failure Nebulizer treatment IV steroid IV antibiotics Reviewed CBC CMP chest x-ray 02/10/2023 interval history: patent with hypercarbic respiratory failure was on BiPAP since 02/09 patient is off BIPAP, most likely multifactorial secondary to exacerbation of COPD, treated with methylprednisone and broncho
--- NOTE | 2023-02-10 14:08 | REHSTMBS ---
Assessment and note entered by Melody Garcia, HEAT TREATMENT TECHNICIAN Modified Barium Swallow Evaluation Feeding Type Recommended Oral Food Consistency Soft and Bite Size, Level Liquid Consistency Thin (0) ST Clinical Summary Modified barium swallow study (MBSS) completed. Oral stage within functional limits, pharyngeal stage within functional limits with trace residue in pyriform sinuses and vallaculea which cleared with repeat swallow. One occurrence of flash penetration observed on initial liquid bolus, which cleared spontaneously. No aspiration observed. Due to missing dentition soft and bite sized diet with thin liquids is recommended for this patient. Swallowing precaution recommendations posted in chart. No further speech therapy is recommended at this time. Thank you for the referral of this patient.
[2023-02-10 16:26] LABS: Glucose Point of Care 309 mg/dl (65-105)
[2023-02-10] MEDS: WARFARIN (*PBKC) 7.5 MG TABLET PO (17:23)
[2023-02-10] MEDS: traMADol HCL (*CRX) 50 MG TABLET PO (19:55)
[2023-02-10 19:57] LABS: Glucose Point of Care 279 mg/dl (65-105)
[2023-02-10] MEDS: QUEtiapine FUMARATE 25 MG TABLET PO (21:11)
[2023-02-10] MEDS: ONDANSETRON INJ 4 MG/2 ML VIAL IV PUSH (22:00)
[2023-02-10] MEDS: LORazepam INJ (*CRX) 2 MG/ML VIAL 0.5 MG IV PUSH (22:02)
[2023-02-11] VITALS (25 sets, daily range): BP systolic 112–152; BP diastolic 66–88; PULSE 76–126; RESP 16–26; TEMP 35.9–36.6; O2SAT 86–99
[2023-02-11] MEDS: PROCHLORPERAZINE EDISYLATE 10 MG/2 ML VIAL IV PUSH (01:16)
[2023-02-11] MEDS: dilTIAZem HCl INJ 25 MG/5 ML VIAL 10 MG IV PUSH ×2 (01:16→06:34)
[2023-02-11] MEDS: LEVALBUTEROL NEB 1.25 MG/3 ML 0.63 MG INHALATION ×4 (02:58→20:18)
[2023-02-11] MEDS: IPRATROPIUM BR 0.02% INH SOLN 0.5 MG/2.5 ML VIAL INHALATION ×4 (02:58→20:18)
[2023-02-11 03:47] LABS: Glucose Point of Care 268 mg/dl (65-105)
[2023-02-11 05:12] LABS: Hematocrit 44.8 % (42.0-52.0); Hemoglobin 13.6 g/dL (14.0-18.0); Mean Corpuscular HGB Conc 30.4 g/dl (32-36); Mean Corpuscular Hemoglobin 28.7 pg (26-34); Mean Corpuscular Volume 94.5 fl (80-100); Mean Platelet Volume 10.2 fl (7.4-10.4); Platelet Count Result 217 k/mm3 (150-375); Red Blood Count 4.74 M/mm3 (4.6-6.20); Red Cell Distribution Width 14.3 % (11.5-14.5); White Blood Count 16.1 K/mm3 (4.5-10.0)
[2023-02-11 05:22] LABS: INR 1.4; Prothrombin Time 16.4 Seconds (11.1-14.7)
[2023-02-11 05:27] LABS: Alanine Aminotransferase 31 U/L (6-50); Albumin Level 3.9 g/dL (3.5-5.1); Alkaline Phosphatase 119 U/L (38-126); Aspartate Amino Transferase 38 U/L (17-59); Bilirubin,Total 0.8 mg/dL (0.2-1.3); Blood Urea Nitrogen 51 mg/dL (9-20); Calcium 8.6 mg/dL (8.4-10.2); Carbon Dioxide > 40 mmol/L (22-30); Chloride 81 mmol/L (98-107); Estimated CRCL calculation 69 ml/min; Estimated Glomerular Filt Rate > 60; Glucose 267 mg/dL (65-110); Magnesium 2.6 mg/dL (1.6-2.3); Potassium 3.4 mmol/L (3.4-5.0); Sodium 134 mmol/L (137-145)
[2023-02-11 06:34] LABS: Glucose Point of Care 282 mg/dl (65-105)
[2023-02-11] MEDS: INSULIN ASPART (*BKC) 100 UNITS/ML SUB-Q ×4 (06:35→17:07)
[2023-02-11 07:54] LABS: Glucose Point of Care 251 mg/dl (65-105)
[2023-02-11] MEDS: UMECLIDINIUM/VILANTEROL 62.5-25 MCG ELLIPTA 1 PUFF INHALATION (09:18)
[2023-02-11] MEDS: POTASSIUM CHLORIDE 20 MEQ TABLET 40 MEQ PO (10:27)
[2023-02-11] MEDS: risperiDONE 1 MG TABLET PO (10:28)
[2023-02-11] MEDS: ASPIRIN 81 MG ENTERIC TABLET PO (10:28)
[2023-02-11] MEDS: ATORVASTATIN 10 MG TABLET PO (10:28)
[2023-02-11] MEDS: ENOXAPARIN 100 MG/ML SYRINGE SUB-Q ×2 (10:28→20:20)
[2023-02-11] MEDS: FAMOTIDINE 20 MG/2 ML VIAL IV PUSH (10:29)
[2023-02-11] MEDS: FUROSEMIDE INJ 40 MG/4 ML VIAL IV PUSH (10:29)
[2023-02-11] MEDS: INSULIN GLARGINE (*BKC) 100 UNITS/ML 20 UNITS SUB-Q (10:29)
[2023-02-11] MEDS: methylPREDNISolone SOD SUCC 40 MG VIAL IV PUSH (10:30)
[2023-02-11] MEDS: DOXYCYCLINE 100 MG/NS 100 ML 100 MG/100 ML BAG IVPB ×2 (11:32→20:44)
--- NOTE | 2023-02-11 11:45 | PC.NURSE ---
Received from [facility] 200/01 via bed.
--- NOTE | 2023-02-11 11:58 | PC.NURSE ---
This patient, Jp Morley, was transferred to [facility] on 02/11/23 at 1140. Personal belongings sent with patient. Report given to Kristen WINKLER. Appropriate documentation sent with patient.
[2023-02-11 12:00] LABS: Glucose Point of Care 343 mg/dl (65-105)
[2023-02-11 12:00] LABS: Glucose Point of Care 320 mg/dl (65-105)
[2023-02-11] MEDS: dilTIAZem HCL 30 MG TABLET 45 MG PO ×2 (12:01→17:42)
[2023-02-11 16:54] LABS: Glucose Point of Care 299 mg/dl (65-105)
[2023-02-11] MEDS: WARFARIN (*PBKC) 7.5 MG TABLET PO (17:08)
[2023-02-11] MEDS: QUEtiapine FUMARATE 25 MG TABLET PO (20:20)
[2023-02-12] VITALS (20 sets, daily range): BP systolic 95–152; BP diastolic 41–96; PULSE 72–108; RESP 16–26; TEMP 36.6–37.2; O2SAT 87–99
[2023-02-12] MEDS: dilTIAZem HCL 30 MG TABLET 45 MG PO ×4 (00:13→18:16)
[2023-02-12] MEDS: IPRATROPIUM BR 0.02% INH SOLN 0.5 MG/2.5 ML VIAL INHALATION ×4 (01:11→21:08)
[2023-02-12] MEDS: LEVALBUTEROL NEB 1.25 MG/3 ML 0.63 MG INHALATION ×4 (01:11→21:09)
[2023-02-12 05:59] LABS: Alanine Aminotransferase 27 U/L (6-50); Albumin Level 3.5 g/dL (3.5-5.1); Alkaline Phosphatase 91 U/L (38-126); Aspartate Amino Transferase 32 U/L (17-59); Bilirubin,Total 0.6 mg/dL (0.2-1.3); Blood Urea Nitrogen 50 mg/dL (9-20); Calcium 8.1 mg/dL (8.4-10.2); Carbon Dioxide > 40 mmol/L (22-30); Chloride 87 mmol/L (98-107); Estimated CRCL calculation 93 ml/min; Estimated Glomerular Filt Rate > 60; Glucose 247 mg/dL (65-110); Magnesium 2.8 mg/dL (1.6-2.3); Potassium 3.8 mmol/L (3.4-5.0); Sodium 133 mmol/L (137-145)
[2023-02-12 07:26] LABS: Hematocrit 43.4 % (42.0-52.0); Mean Corpuscular Hemoglobin 29.3 pg (26-34); Mean Corpuscular Volume 97.7 fl (80-100); Mean Platelet Volume 10.8 fl (7.4-10.4); Platelet Count Result 166 k/mm3 (150-375); Red Blood Count 4.44 M/mm3 (4.6-6.20); Red Cell Distribution Width 14.2 % (11.5-14.5); White Blood Count 20.5 K/mm3 (4.5-10.0)
[2023-02-12 07:37] LABS: INR 2.2; Prothrombin Time 23.6 Seconds (11.1-14.7)
[2023-02-12] MEDS: ASPIRIN 81 MG ENTERIC TABLET PO (08:05)
[2023-02-12] MEDS: ATORVASTATIN 10 MG TABLET PO (08:05)
[2023-02-12] MEDS: risperiDONE 1 MG TABLET PO (08:07)
[2023-02-12] MEDS: polyethylene glycoL 3350 17 GM POWD.PACK PO (08:09)
[2023-02-12] MEDS: FUROSEMIDE INJ 40 MG/4 ML VIAL IV PUSH (08:09)
[2023-02-12] MEDS: methylPREDNISolone SOD SUCC 40 MG VIAL IV PUSH (08:09)
[2023-02-12] MEDS: FAMOTIDINE 20 MG/2 ML VIAL IV PUSH (08:09)
[2023-02-12] MEDS: ENOXAPARIN 100 MG/ML SYRINGE SUB-Q ×2 (08:09→20:40)
[2023-02-12] MEDS: DOXYCYCLINE 100 MG/NS 100 ML 100 MG/100 ML BAG IVPB ×2 (08:19→20:39)
[2023-02-12 09:03] LABS: Glucose Point of Care 206 mg/dl (65-105)
[2023-02-12] MEDS: UMECLIDINIUM/VILANTEROL 62.5-25 MCG ELLIPTA 1 PUFF INHALATION (09:11)
[2023-02-12] MEDS: INSULIN ASPART (*BKC) 100 UNITS/ML SUB-Q ×2 (09:18→11:51)
[2023-02-12] MEDS: INSULIN GLARGINE (*BKC) 100 UNITS/ML 20 UNITS SUB-Q ×2 (09:19→17:17)
--- NOTE | 2023-02-12 10:19 | PCNFU ---
Nutrition Follow-Up Complete: Inadequate Oral Intake as related to chronic respiratory failure as evidenced by NPO. - Resolved Goal: Meet estimated nutritional needs - Progressing Pt current nutrition is Heart healthy diet, soft & bite sized. Ensure Compact BID for additional 220 kcals and 9 g protein each. Nutrition recommendation: Continue with current nutrition care plan. Agree with orders Last recorded weight is 104.2 kg. Down from 112.5 kg at admit Bowel Motility: No BMs charted Labs Reviewed: Hgb 13.0, Na 133, BUN 50, Glu 247 Meds Noted: Lasix, Zofran, Rocephin, Lantus/Novolog, coumadin, solumedrol Skin: Non pitting edema BLE Additional Notes: MBSS was done 02/10/23, soft diet recommended. Pt intakes have improved. Continue with current care plan. Will monitor weight, labs, meds, skin, intakes every 7 days.
[2023-02-12 11:48] LABS: Glucose Point of Care 398 mg/dl (65-105)
--- NOTE | 2023-02-12 15:26 | PM.IMPN ---
Progress Note: A&P Assessment and Plan (1) COPD exacerbation: Code(s): J44.1 - Chronic obstructive pulmonary disease with (acute) exacerbation Status: Acute Assessment and Plan: Associated with acute hypoxemic hypercapnic respiratory failure Nebulizer treatment IV steroid IV antibiotics Reviewed CBC CMP chest x-ray 02/11/2023 interval history: patent with hypercarbic respiratory failure was on BiPAP since 02/09 patient is off BIPAP, most likely multifactorial secondary to exacerbation of COPD, treated with methylprednisone and bronchodilator, patient clinicall symptoms are improving, will taper methylprednisone to 40mg qd, pneumonia treated with cefepime and and vancomycin, blood C/S is growing Staphylococcus epidermidis and Streptococcus warneri concerning for MRSA suspect contamination broker in charge stop vancomycin will continue ceftriaxone and doxycycline, and congestive heart failure with elevated BNP, and mild reduced ejection fraction with a 45% and abnormal diastolic function being diuresed, as well as hypoventilation with morbid obesity, patient off BiPAP as patient pCO2 is improving, discussed with broker in charge does not suspect patient has penumonia, most likely combination of CHF and COPD, his steroids being tapered, will continue to monitor and further recommendation to follow will krystynafer patient out of ICU, he is clinically improving, will monitor. (2) Atrial flutter: Code(s): I48.92 - Unspecified atrial flutter Status: Acute Assessment and Plan: Pending home medication reconciliation Patient on Cardizem and Coumadin at home Pending home medication reconciliation Added p.r.n. metoprolol (3) Acute on chronic respiratory failure with hypoxia and hypercapnia: Code(s): J96.21 - Acute and chronic respiratory failure with hypoxia; J96.22 - Acute and chronic respiratory failure with hypercapnia Status: Acute Assessment and Plan: Required BiPAP will admit to ICU Reviewed ABG discussed with ER physician reviewed chest x-ray (4) Pneumonia: Code(s): J18.9 - Pneumonia, unspecified organism Status: Acute Assessment and Plan: I think most likely patient has pulmonary edema less likely patient has pneumonia Continue broad-spectrum IV antibiotic Follow culture results Consider DC antibiotic after 48 hours if no evidence of infection (5) Combined systolic and diastolic congestive heart failure: Code(s): I50.40 - Unspecified combined systolic (congestive) and diastolic (congestive) heart failure Status: Acute Assessment and Plan: Acute and of chronic combined systolic and diastolic CHF exacerbation associated with pulmonary edema Start diuresis as tolerated by blood pressure Echo from 11/2021 showed ejection fraction 40% Consider cardiology consult in a.m. (6) Chronic anticoagulation: Code(s): Z79.01 - terminal clerk (current) use of anticoagulants Status: Acute Assessment and Plan: Follow INR daily Pending home medication reconciliation (7) History of DVT (deep vein thrombosis): Code(s): Z86.718 - Personal history of other venous thrombosis and embolism Status: Chronic Assessment and Plan: Follow INR daily Pending home medication reconciliation (8) Insulin dependent diabetes mellitus: Status: Chronic Assessment and Plan: Insulin sliding scale Patient on long-acting insulin at home pending home medication reconciliation (9) Obstructive sleep apnea: Code(s): G47.33 - Obstructive sleep apnea (adult) (pediatric) Status: Acute Assessment and Plan: CPAP Subjective Date/time seen: 02/11/23 15:26 02/11/2023 interval history: patent with hypercarbic respiratory failure was on BiPAP since 02/09 patient is off BIPAP, most likely multifactorial secondary to exacerbation of COPD, treated with methylprednisone and bronchodilator, patient clinicall symptoms are improving, will taper meth
--- NOTE | 2023-02-12 15:49 | PM.IMPN ---
Progress Note: A&P Assessment and Plan (1) COPD exacerbation: Code(s): J44.1 - Chronic obstructive pulmonary disease with (acute) exacerbation Status: Acute Assessment and Plan: Associated with acute hypoxemic hypercapnic respiratory failure Nebulizer treatment IV steroid IV antibiotics Reviewed CBC CMP chest x-ray 02/12/2023 interval history: patent with hypercarbic respiratory failure was on BiPAP since 02/09 patient is off BIPAP, most likely multifactorial secondary to exacerbation of COPD, treated with methylprednisone and bronchodilator, patient clinically symptoms are improving, will taper methylprednisone to 40mg qd, pneumonia treated with cefepime and and vancomycin, blood C/S is growing Staphylococcus epidermidis and Streptococcus warneri concerning for MRSA suspect contamination dyeing machine tender stop vancomycin will continue ceftriaxone and doxycycline, and congestive heart failure with elevated BNP, and mild reduced ejection fraction with a 45% and abnormal diastolic function being diuresed, as well as hypoventilation with morbid obesity, patient off BiPAP as patient pCO2 is improving, discussed with dyeing machine tender does not suspect patient has penumonia, most likely combination of CHF and COPD, his steroids being tapered, patient was transferred patient out of ICU, he is clinically improving, he is sitting in the chair, patient will need a sleep study as out patient, he is requiring 4L oxygen at rest this is baseline, he will need oxygen at night (2) Atrial flutter: Code(s): I48.92 - Unspecified atrial flutter Status: Acute Assessment and Plan: Pending home medication reconciliation Patient on Cardizem and Coumadin at home Pending home medication reconciliation Added p.r.n. metoprolol (3) Acute on chronic respiratory failure with hypoxia and hypercapnia: Code(s): J96.21 - Acute and chronic respiratory failure with hypoxia; J96.22 - Acute and chronic respiratory failure with hypercapnia Status: Acute Assessment and Plan: Required BiPAP will admit to ICU Reviewed ABG discussed with ER physician reviewed chest x-ray (4) Pneumonia: Code(s): J18.9 - Pneumonia, unspecified organism Status: Acute Assessment and Plan: I think most likely patient has pulmonary edema less likely patient has pneumonia Continue broad-spectrum IV antibiotic Follow culture results Consider DC antibiotic after 48 hours if no evidence of infection (5) Combined systolic and diastolic congestive heart failure: Code(s): I50.40 - Unspecified combined systolic (congestive) and diastolic (congestive) heart failure Status: Acute Assessment and Plan: Acute and of chronic combined systolic and diastolic CHF exacerbation associated with pulmonary edema Start diuresis as tolerated by blood pressure Echo from 11/2021 showed ejection fraction 40% Consider cardiology consult in a.m. (6) Chronic anticoagulation: Code(s): Z79.01 - jail (current) use of anticoagulants Status: Acute Assessment and Plan: Follow INR daily Pending home medication reconciliation (7) History of DVT (deep vein thrombosis): Code(s): Z86.718 - Personal history of other venous thrombosis and embolism Status: Chronic Assessment and Plan: Follow INR daily Pending home medication reconciliation (8) Insulin dependent diabetes mellitus: Status: Chronic Assessment and Plan: Insulin sliding scale Patient on long-acting insulin at home pending home medication reconciliation (9) Obstructive sleep apnea: Code(s): G47.33 - Obstructive sleep apnea (adult) (pediatric) Status: Acute Assessment and Plan: CPAP Subjective Date/time seen: 02/12/23 15:49 02/12/2023 interval history: patent with hypercarbic respiratory failure was on BiPAP since 02/09 patient is off BIPAP, most likely multifactorial secondary to exacerbation of COPD, treated with methy
[2023-02-12 17:09] LABS: Glucose Point of Care 418 mg/dl (65-105)
[2023-02-12] MEDS: WARFARIN (*PBKC) 7.5 MG TABLET PO (17:16)
[2023-02-12] MEDS: INSULIN ASPART (*BKC) 100 UNITS/ML 8 UNITS SUB-Q (17:17)
[2023-02-12 18:07] LABS: Pneumococcal Antigen Urine Not Detected (Not Detected)
[2023-02-12] MEDS: QUEtiapine FUMARATE 25 MG TABLET PO (20:40)
[2023-02-12 21:14] LABS: Glucose Point of Care 381 mg/dl (65-105)
[2023-02-13] VITALS (12 sets, daily range): BP systolic 123–149; BP diastolic 83–95; PULSE 69–94; RESP 18–22; TEMP 36.6–36.8; O2SAT 94–98
[2023-02-13] MEDS: dilTIAZem HCL 30 MG TABLET 45 MG PO ×3 (01:00→11:40)
[2023-02-13] MEDS: LEVALBUTEROL NEB 1.25 MG/3 ML 0.63 MG INHALATION ×3 (02:06→13:09)
[2023-02-13] MEDS: IPRATROPIUM BR 0.02% INH SOLN 0.5 MG/2.5 ML VIAL INHALATION ×3 (02:06→13:09)
[2023-02-13 05:24] LABS: Hemoglobin 11.3 g/dL (14.0-18.0); Mean Corpuscular HGB Conc 30.5 g/dl (32-36); Mean Corpuscular Hemoglobin 29.5 pg (26-34); Mean Corpuscular Volume 96.6 fl (80-100); Mean Platelet Volume 10.3 fl (7.4-10.4); Platelet Count Result 158 k/mm3 (150-375); Red Blood Count 3.83 M/mm3 (4.6-6.20); Red Cell Distribution Width 13.7 % (11.5-14.5); White Blood Count 17.9 K/mm3 (4.5-10.0)
[2023-02-13 05:26] LABS: INR 3.3; Prothrombin Time 32.7 Seconds (11.1-14.7)
[2023-02-13 05:28] LABS: Alanine Aminotransferase 40 U/L (6-50); Albumin Level 3.4 g/dL (3.5-5.1); Alkaline Phosphatase 88 U/L (38-126); Aspartate Amino Transferase 54 U/L (17-59); Bilirubin,Total 0.4 mg/dL (0.2-1.3); Blood Urea Nitrogen 32 mg/dL (9-20); Calcium 8.5 mg/dL (8.4-10.2); Carbon Dioxide > 40 mmol/L (22-30); Chloride 84 mmol/L (98-107); Estimated CRCL calculation 82 ml/min; Estimated Glomerular Filt Rate > 60; Glucose 149 mg/dL (65-110); Magnesium 2.2 mg/dL (1.6-2.3); Potassium 4.3 mmol/L (3.4-5.0); Sodium 133 mmol/L (137-145)
[2023-02-13] MEDS: predniSONE 20 MG TABLET 40 MG PO (08:16)
[2023-02-13] MEDS: ENOXAPARIN 100 MG/ML SYRINGE SUB-Q (08:16)
[2023-02-13] MEDS: ATORVASTATIN 10 MG TABLET PO (08:16)
[2023-02-13] MEDS: FUROSEMIDE INJ 40 MG/4 ML VIAL IV PUSH (08:16)
[2023-02-13] MEDS: FAMOTIDINE 20 MG/2 ML VIAL IV PUSH (08:16)
[2023-02-13] MEDS: ASPIRIN 81 MG ENTERIC TABLET PO (08:16)
[2023-02-13] MEDS: polyethylene glycoL 3350 17 GM POWD.PACK PO (08:16)
[2023-02-13] MEDS: UMECLIDINIUM/VILANTEROL 62.5-25 MCG ELLIPTA 1 PUFF INHALATION (08:23)
[2023-02-13 08:36] LABS: Glucose Point of Care 147 mg/dl (65-105)
[2023-02-13] MEDS: INSULIN GLARGINE (*BKC) 100 UNITS/ML 20 UNITS SUB-Q ×2 (08:36→12:29)
[2023-02-13] MEDS: INSULIN ASPART (*BKC) 100 UNITS/ML SUB-Q ×3 (08:37→12:29)
[2023-02-13] MEDS: risperiDONE 1 MG TABLET PO (09:17)
--- NOTE | 2023-02-13 10:07 | PM.DS ---
DS: Admitting Diagnosis Discharge Date 02/13/2023 Admitting Diagnosis Shortness of breath hypoxia DS: Discharge Diagnosis Discharge Diagnosis (1) COPD exacerbation: Code(s): J44.1 - Chronic obstructive pulmonary disease with (acute) exacerbation Status: Acute Assessment and Plan: Associated with acute hypoxemic hypercapnic respiratory failure Nebulizer treatment IV steroid IV antibiotics Reviewed CBC CMP chest x-ray 02/12/2023 interval history: patent with hypercarbic respiratory failure was on BiPAP since 02/09 patient is off BIPAP, most likely multifactorial secondary to exacerbation of COPD, treated with methylprednisone and bronchodilator, patient clinically symptoms are improving, will taper methylprednisone to 40mg qd, pneumonia treated with cefepime and and vancomycin, blood C/S is growing Staphylococcus epidermidis and Streptococcus warneri concerning for MRSA suspect contamination guest services director stop vancomycin will continue ceftriaxone and doxycycline, and congestive heart failure with elevated BNP, and mild reduced ejection fraction with a 45% and abnormal diastolic function being diuresed, as well as hypoventilation with morbid obesity, patient off BiPAP as patient pCO2 is improving, discussed with guest services director does not suspect patient has penumonia, most likely combination of CHF and COPD, his steroids being tapered, patient was transferred patient out of ICU, he is clinically improving, he is sitting in the chair, patient will need a sleep study as out patient, he is requiring 4L oxygen at rest this is baseline, he will need oxygen at night (2) Atrial flutter: Code(s): I48.92 - Unspecified atrial flutter Status: Acute Assessment and Plan: Pending home medication reconciliation Patient on Cardizem and Coumadin at home Pending home medication reconciliation Added p.r.n. metoprolol (3) Acute on chronic respiratory failure with hypoxia and hypercapnia: Code(s): J96.21 - Acute and chronic respiratory failure with hypoxia; J96.22 - Acute and chronic respiratory failure with hypercapnia Status: Acute Assessment and Plan: Required BiPAP will admit to ICU Reviewed ABG discussed with ER physician reviewed chest x-ray (4) Pneumonia: Code(s): J18.9 - Pneumonia, unspecified organism Status: Acute Assessment and Plan: I think most likely patient has pulmonary edema less likely patient has pneumonia Continue broad-spectrum IV antibiotic Follow culture results Consider DC antibiotic after 48 hours if no evidence of infection (5) Combined systolic and diastolic congestive heart failure: Code(s): I50.40 - Unspecified combined systolic (congestive) and diastolic (congestive) heart failure Status: Acute Assessment and Plan: Acute and of chronic combined systolic and diastolic CHF exacerbation associated with pulmonary edema Start diuresis as tolerated by blood pressure Echo from 11/2021 showed ejection fraction 40% Consider cardiology consult in a.m. (6) Chronic anticoagulation: Code(s): Z79.01 - alf (current) use of anticoagulants Status: Acute Assessment and Plan: Follow INR daily Pending home medication reconciliation (7) History of DVT (deep vein thrombosis): Code(s): Z86.718 - Personal history of other venous thrombosis and embolism Status: Chronic Assessment and Plan: Follow INR daily Pending home medication reconciliation (8) Insulin dependent diabetes mellitus: Status: Chronic Assessment and Plan: Insulin sliding scale Patient on long-acting insulin at home pending home medication reconciliation (9) Obstructive sleep apnea: Code(s): G47.33 - Obstructive sleep apnea (adult) (pediatric) Status: Acute Assessment and Plan: CPAP DS: Summary Hospital Course Reason for hospitalization: Chief Complaint: 62 years old male with past medical history of COPD chronic
[2023-02-13 10:19] LABS: EDCOVIDSCREEN Negative (Negative)
[2023-02-13 12:17] LABS: Glucose Point of Care 460 mg/dl (65-105)
--- NOTE | 2023-02-13 12:20 | PC.NURSE ---
dr Michelle notified of glucose 460
[2023-02-13 15:12] LABS: Glucose Point of Care 382 mg/dl (65-105)
== END 2023-02-13 15:59 | DRG 140 ==
LOC: ANHED 22:59 → ANHICU 23:27 → ANHIMU 02-10 14:39 → ANH2MED 02-11 11:51
PROVIDERS: Internal Medicine; Admitting Provider Internal Medicine; Emergency Provider Emergency Medicine; PCP Pediatrics Neonatal-Perinatal Medicine; Visit Provider Family Medicine
DX: J44.1 Chronic obstructive pulmonary disease with (acute) exacerbation (principal); J96.21 Acute and chronic respiratory failure with hypoxia; I50.43 Acute on chronic combined systolic (congestive) and diastolic (congestive) heart failure; J18.9 Pneumonia, unspecified organism; I27.20 Pulmonary hypertension, unspecified; E11.40 Type 2 diabetes mellitus with diabetic neuropathy, unspecified; I48.0 Paroxysmal atrial fibrillation; J44.0 Chronic obstructive pulmonary disease with (acute) lower respiratory infection; J96.22 Acute and chronic respiratory failure with hypercapnia; I25.10 Atherosclerotic heart disease of native coronary artery without angina pectoris; G47.33 Obstructive sleep apnea (adult) (pediatric); F41.1 Generalized anxiety disorder; F17.210 Nicotine dependence, cigarettes, uncomplicated; F31.9 Bipolar disorder, unspecified; Z20.822 Contact with and (suspected) exposure to COVID-19; Z79.01 Long term (current) use of anticoagulants; Z79.4 Long term (current) use of insulin; Z79.82 Long term (current) use of aspirin; Z86.73 Personal history of transient ischemic attack (TIA), and cerebral infarction without residual deficits; Z86.718 Personal history of other venous thrombosis and embolism; Z95.5 Presence of coronary angioplasty implant and graft; Z95.0 Presence of cardiac pacemaker
CPT/HCPCS: 36415; 36600; 71045; 74018; 80053; 81003; 82140; 82375; 82607; 82746; 82805; 82948; 83050; 83605; 83735; 83880; 84100; 84145; 84484; 85025; 85027; 85610; 85730; 87040; 87077; 87081; 87181; 87186; 87426; 87637; 87899; 92610; 92611; 93005; 94003; 94640; 94660; 96374; 97110; 97161; 97165; 97530; 97535; 99285; A9270; C9803; J0360; J0692; J0696; J0780; J1650; J1815; J1940; J2060; J2405; J2920; J3370; J7512

== ENCOUNTER 2023-02-27 23:49 | Emergency (ER) | payer OTHER, SELFPAY ==
--- NOTE | ~2023-02-27 | CT_ITS ---
CT head without contrast Indication: Hypertherapeutic INR, abnormal neural exam COMPARISON: 12/30/2021 Technique: Serial scans were obtained through the brain without the administration of contrast. Dose reduction technique was used on this scan by utilizing automated exposure control and iterative recon struction technique. The dose-length product (DLP) was 681.00 mGy-cm. Findings: There is no evidence of intracranial hemorrhage, mass lesion, or acute infarct. The ventri cles and subarachnoid spaces are dilated, consistent with mild atrophy. Low attenuation regions are seen within the periventricular white matter bilaterally, likely representing changes from chronic mi crovascular ischemic disease. There is no evidence of edema, mass effect or midline shift. The visu alized paranasal sinuses and mastoid air cells are clear. Impression: No intracranial hemorrhage, mass, or acute infarct. Atrophy and chronic white matter changes, as above. Reviewed, dictated and finalized at [facility]. Impression: No intracranial hemorrhage, mass, or acute infarct. Atrophy and chronic white matter changes, as above.
[2023-02-27 23:48] VITALS: BP 160/99; PULSE 82; RESP 17; TEMP 36.5; O2SAT 99
[2023-02-27 23:58] VITALS: O2SAT 98
--- NOTE | 2023-02-28 00:25 | PC.NURSE ---
Patient came with paperwork from [facility] that showed upward trends in the INR and PT labs.
[2023-02-28 00:45] LABS: Basophils Percent Auto 0.1 % (0.2-1.2); Eosinophils Absolute Auto 0.1 K/mm3 (0-0.3); Eosinophils Percent Auto 1.6 % (0-4.4); Hematocrit 38.5 % (42.0-52.0); Hemoglobin 11.6 g/dL (14.0-18.0); Immature Granulocyte Absolute 0.03 K/mm3 (0.00-0.031); Immature Granulocyte Percent A 0.3 % (0-0.5); Lymphocytes Absolute Auto 0.56 K/mm3 (0.9-3.2); Lymphocytes Percent Auto 6.4 % (18.3-44.2); Mean Corpuscular HGB Conc 30.1 g/dl (32-36); Mean Corpuscular Hemoglobin 29.4 pg (26-34); Mean Corpuscular Volume 97.7 fl (80-100); Mean Platelet Volume 9.7 fl (7.4-10.4); Monocytes Absolute Auto 0.7 K/mm3 (0.1-0.6); Monocytes Percent Auto 7.5 % (2.6-8.5); Neutrophils Absolute Auto 7.4 K/mm3 (1.3-6.7); Neutrophils Percent Auto 84.1 % (45.5-73.1); Platelet Count Result 132 k/mm3 (150-375); Red Blood Count 3.94 M/mm3 (4.6-6.20); Red Cell Distribution Width 14.6 % (11.5-14.5); White Blood Count 8.8 K/mm3 (4.5-10.0)
[2023-02-28 00:56] LABS: Alanine Aminotransferase 43 U/L (6-50); Albumin Level 3.5 g/dL (3.5-5.1); Alkaline Phosphatase 148 U/L (38-126); Aspartate Amino Transferase 33 U/L (17-59); Bilirubin,Total 0.5 mg/dL (0.2-1.3); Blood Urea Nitrogen 24 mg/dL (9-20); Calcium 8.1 mg/dL (8.4-10.2); Carbon Dioxide > 40 mmol/L (22-30); Chloride 87 mmol/L (98-107); Estimated CRCL calculation 105 ml/min; Estimated Glomerular Filt Rate > 60; Glucose 262 mg/dL (65-110); Potassium 4.2 mmol/L (3.4-5.0); Sodium 132 mmol/L (137-145)
[2023-02-28 00:58] LABS: Prothrombin Time 77.2 Seconds (11.1-14.7)
[2023-02-28 00:59] LABS: Partial Thromboplastin Time 55.5 SECONDS (22.3-36.8)
[2023-02-28 01:17] LABS: INR 8.2
--- NOTE | 2023-02-28 01:22 | ED.GENADULT ---
HPI - General Adult General Chief complaint: Recheck/Abnormal Lab/Rx Stated complaint: ABNORMAL LABS Time Seen by Provider: 02/28/23 00:18 History of Present Illness HPI narrative: This 62-year-old male sent in from the residential for abnormal labs. His INR was elevated at greater than 10. He was given oral vitamin K at the residential. They then sent him in for further evaluation. The patient feels well and denies any falls or trauma. He has no evidence of bleeding at this time. He says he has been taking his warfarin as directed. Patient denies any complaints and says he feels good. Related Data Home Medications Medication Instructions Recorded Confirmed amantadine HCl 100 mg tablet 100 mg PO DAILY 11/26/20 02/08/23 aspirin 81 mg tablet 81 mg PO DAILY 11/26/20 02/08/23 atorvastatin 10 mg tablet 10 mg PO HS 11/26/20 02/08/23 diltiazem HCl 120 mg 120 mg PO DAILY 11/26/20 02/08/23 capsule,extended release 24 hr, controlled furosemide 40 mg tablet (Lasix) 40 mg PO DAILY 11/26/20 02/08/23 losartan 50 mg tablet 50 mg PO DAILY 11/26/20 02/08/23 risperidone 1 mg tablet 1 mg PO DAILY 11/26/20 02/08/23 trazodone 50 mg tablet 25 mg PO HS 11/26/20 02/08/23 albuterol sulfate 90 mcg/actuation 2 puff inhalation Q4H 12/15/21 02/08/23 aerosol inhaler buspirone 10 mg tablet 5 mg PO TID 12/15/21 02/08/23 ergocalciferol (vitamin D2) 1,250 1 unit PO MONTHLY 12/15/21 02/08/23 mcg (50,000 unit) capsule famotidine 20 mg tablet 20 mg PO BID 12/15/21 02/08/23 gabapentin 300 mg capsule 400 mg PO HS 12/15/21 02/08/23 insulin glargine 100 unit/mL (3 10 unit subcut HS 12/15/21 02/08/23 mL) subcutaneous pen (Lantus Solostar U-100 Insulin) polyethylene glycol 3350 17 17 g PO DAILY PRN Constipation 12/15/21 02/08/23 gram/dose oral powder sennosides 8.6 mg-docusate sodium 1 tablet PO BID PRN Constipation 12/15/21 02/08/23 50 mg tablet (Senexon-S) tamsulosin 0.4 mg capsule 0.4 mg PO DAILY 12/15/21 02/08/23 warfarin 6 mg tablet 7.5 mg PO QPM 12/15/21 02/08/23 multivitamin (Daily-Isidro tablet) 1 tablet PO DAILY 12/16/21 02/08/23 albuterol sulfate 2.5 mg/3 mL 2.5 mg inhalation Q4-6H PRN Dyspnea 02/22/22 02/08/23 (0.083 %) solution for nebulization menthol 4 % topical gel (Biofreeze 1 applic topical TID PRN Muscle 02/22/22 02/08/23 (menthol)) Pain potassium chloride 20 mEq 20 meq PO DAILY 02/22/22 02/08/23 tablet,extended release Anoro Ellipta 1 puff inhalation DAILY 02/08/23 02/08/23 ketoconazole 2 % shampoo 4 applic topical DAILY 02/08/23 02/08/23 ketoconazole 2 % topical cream 1 applic topical DAILY 02/08/23 02/08/23 tizanidine 2 mg capsule 2 mg PO Q8H PRN Muscle Pain 02/08/23 02/08/23 tramadol 50 mg PO Q6H PRN Moderate Pain 02/08/23 02/08/23 (Scale Score 5-6) Allergies Allergy/AdvReac Type Severity Reaction Status Date / Time acetaminophen Allergy Unknown Unknown Verified 02/22/22 15:49 [facility] Past Medical History Medical History Bipolar disorder Cerebrovascular accident Chronic anticoagulation Chronic obstructive pulmonary disease Chronic respiratory failure with hypoxia and hypercapnia Combined systolic and diastolic congestive heart failure Echocardiogram on 12/16/2021 showed a mildly enlarged LV chamber, [id number] reduced left ventricular systolic function with an EF estimated 40 to 45%, and abnormal diastolic function. Coronary artery disease Deep venous thrombosis Depression Diabetic neuropathy Generalized anxiety disorder History of trauma Traumatic brain injury years ago after a fall. Insulin dependent diabetes mellitus Mild pulmonary hypertension Estimated pulmonary arterial systolic pressure was 40 mmHg on echocardiogram in November 2021. Obstructive sleep apnea Noncompliant with BiPAP. On 2 L nasal cannula at nighttime. Paroxysmal atrial fibrillation Paroxysmal atrial flutter Transient ischemic attack Surgical History Surgical Hi
[2023-02-28 02:44] VITALS: BP 119/94; PULSE 80; RESP 15; O2SAT 99
[2023-02-28 03:52] VITALS: BP 168/113; PULSE 86; RESP 14; O2SAT 100
[2023-02-28 05:43] VITALS: BP 182/108; PULSE 75; RESP 15; O2SAT 100
--- NOTE | 2023-02-28 05:54 | PC.NURSE ---
Called [facility] to advise patient is leaving now with EMS. Went over discharge instructions with Alexsandra.
[2023-02-28 05:56] VITALS: BP 150/108; PULSE 81; RESP 15; O2SAT 100
== END 2023-02-28 05:58 ==
PROVIDERS: Emergency Provider Emergency Medicine; PCP Pediatrics Neonatal-Perinatal Medicine
DX: R79.1 Abnormal coagulation profile (principal); J44.9 Chronic obstructive pulmonary disease, unspecified; I50.40 Unspecified combined systolic (congestive) and diastolic (congestive) heart failure; I25.10 Atherosclerotic heart disease of native coronary artery without angina pectoris; E11.40 Type 2 diabetes mellitus with diabetic neuropathy, unspecified; I27.20 Pulmonary hypertension, unspecified; I48.0 Paroxysmal atrial fibrillation; I48.92 Unspecified atrial flutter; G47.33 Obstructive sleep apnea (adult) (pediatric); F31.9 Bipolar disorder, unspecified; F41.1 Generalized anxiety disorder; F17.210 Nicotine dependence, cigarettes, uncomplicated; Z86.718 Personal history of other venous thrombosis and embolism; Z86.73 Personal history of transient ischemic attack (TIA), and cerebral infarction without residual deficits; Z87.820 Personal history of traumatic brain injury; Z95.5 Presence of coronary angioplasty implant and graft; Z95.0 Presence of cardiac pacemaker; Z79.01 Long term (current) use of anticoagulants; Z79.82 Long term (current) use of aspirin; Z79.4 Long term (current) use of insulin
CPT/HCPCS: 36415; 70450; 80053; 85025; 85610; 85730; 99284

== ENCOUNTER 2023-04-02 14:23 | Outpatient (CLI) | payer OTHER, SELFPAY ==
--- NOTE | 2023-04-02 15:18 | PCRCNOTE ---
PATIENT UNABLE TO PREFORM PFT. PATIENT UNABLE TO FOLLOW DIRECTIONS DUE TO BEING MENTALLY CHALLENGED. LEFT MESSAGE AT DR. HOOVER.
== END 2023-04-02 14:24 | disposition home or self-care (01) ==
LOC: ANHPFT 14:25
PROVIDERS: PCP Pediatrics Neonatal-Perinatal Medicine; Visit Provider Internal Medicine Pulmonary Disease
DX: R06.00 Dyspnea, unspecified (principal)
CPT/HCPCS: 99199

== ENCOUNTER 2023-05-09 17:32 | Emergency (ER) | payer OTHER, SELFPAY ==
--- NOTE | ~2023-05-09 | XR_ITS ---
EXAMINATION: XR chest 2V DATE: 05/09/2023 17:56 INDICATION: Shortness of breath. TECHNIQUE: Frontal and lateral views of the chest were obtained. COMPARISON: Chest single view 02/09/2023, chest CT 12/30/2021 FINDINGS: There are airspace opacities in the mid and lower lung zones. There are calcified pleural p laques on the right. No pleural effusion or pneumothorax. Cardiomegaly is noted. There is a left ches t wall pacer with leads in the right atrium and right ventricle. IMPRESSION: 1. Stable airspace opacities in the mid and lower lung zones, likely mild atelectasis and chronic rakel g disease. Pneumonia cannot be excluded. 2. Calcified pleural plaques on the right. 3. Cardiomegaly. Reviewed, dictated and finalized at location E. IMPRESSION: 1. Stable airspace opacities in the mid and lower lung zones, likely mild atele ctasis and chronic lung disease. Pneumonia cannot be excluded. 2. Calcified pleural plaques on the right. 3. Cardiomegaly.
--- NOTE | 2023-05-09 17:35 | ECG_ITS ---
Measurements Intervals [place] Rate: 80 P: 250 ND: 262 QRS: -60 QRSD: 161 T: -57 QT: 380 QTc: 440 Interpretive Statements ELECTRONIC VENTRICULAR PACEMAKER WITH INHIBITION ATRIAL FLUTTER RIGHT BUNDLE BRANCH BLOCK LEFT ANTERIOR FASCICULAR BLOCK BASELINE ARTIFACT- I, II ABNORMAL ECG COMPARED TO ECG 02/07/2023 20:01:17 NO SIGNIFICANT CHANGES Electronically Signed On 05-10-2023 8:10:03 CDT by Dileep Vinson D.O.
[2023-05-09 17:36] VITALS: BP 157/88; PULSE 78; RESP 96; TEMP 36.4; O2SAT 28
--- NOTE | 2023-05-09 18:02 | PC.NURSE ---
er in room. pt now agreeable to IV and bloodwork
--- NOTE | 2023-05-09 18:13 | ED.SOB ---
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 He denies any fever, chills, nausea, vomiting, chest pain or productive cough. On arrival to the ED patient refusing any blood work-up but it is okay for x-ray. After long talking with him he agreed for the blood work-up. History of bipolar, COPD, deep vein thrombosis currently on Coumadin. Related Data Home Medications Medication Instructions Recorded Confirmed amantadine HCl 100 mg tablet 100 mg PO DAILY 11/26/20 03/08/23 aspirin 81 mg tablet 81 mg PO DAILY 11/26/20 03/08/23 atorvastatin 10 mg tablet 10 mg PO HS 11/26/20 03/08/23 diltiazem HCl 120 mg 120 mg PO DAILY 11/26/20 03/08/23 capsule,extended release 24 hr, controlled furosemide 40 mg tablet (Lasix) 40 mg PO DAILY 11/26/20 03/08/23 losartan 50 mg tablet 50 mg PO DAILY 11/26/20 03/08/23 risperidone 1 mg tablet 1 mg PO DAILY 11/26/20 03/08/23 trazodone 50 mg tablet 25 mg PO HS 11/26/20 03/08/23 albuterol sulfate 90 mcg/actuation 2 puff inhalation Q4H 12/15/21 03/08/23 aerosol inhaler buspirone 10 mg tablet 5 mg PO TID 12/15/21 03/08/23 ergocalciferol (vitamin D2) 1,250 1 unit PO MONTHLY 12/15/21 03/08/23 mcg (50,000 unit) capsule famotidine 20 mg tablet 20 mg PO BID 12/15/21 03/08/23 gabapentin 300 mg capsule 400 mg PO HS 12/15/21 03/08/23 insulin glargine 100 unit/mL (3 10 unit subcut HS 12/15/21 03/08/23 mL) subcutaneous pen (Lantus Solostar U-100 Insulin) polyethylene glycol 3350 17 17 g PO DAILY PRN Constipation 12/15/21 03/08/23 gram/dose oral powder sennosides 8.6 mg-docusate sodium 1 tablet PO BID PRN Constipation 12/15/21 03/08/23 50 mg tablet (Senexon-S) tamsulosin 0.4 mg capsule 0.4 mg PO DAILY 12/15/21 03/08/23 warfarin 6 mg tablet 7.5 mg PO QPM 12/15/21 03/08/23 multivitamin (Daily-Isidro tablet) 1 tablet PO DAILY 12/16/21 03/08/23 albuterol sulfate 2.5 mg/3 mL 2.5 mg inhalation Q4-6H PRN Dyspnea 02/22/22 03/08/23 (0.083 %) solution for nebulization menthol 4 % topical gel (Biofreeze 1 applic topical TID PRN Muscle 02/22/22 03/08/23 (menthol)) Pain potassium chloride 20 mEq 20 meq PO DAILY 02/22/22 03/08/23 tablet,extended release Anoro Ellipta 1 puff inhalation DAILY 02/08/23 03/08/23 ketoconazole 2 % shampoo 4 applic topical DAILY 02/08/23 03/08/23 ketoconazole 2 % topical cream 1 applic topical DAILY 02/08/23 03/08/23 tizanidine 2 mg capsule 2 mg PO Q8H PRN Muscle Pain 02/08/23 03/08/23 tramadol 50 mg PO Q6H PRN Moderate Pain 02/08/23 03/08/23 (Scale Score 5-6) Allergies Allergy/AdvReac Type Severity Reaction Status Date / Time acetaminophen Allergy Unknown Unknown Verified 03/08/23 14:41 Review of Systems Review of Systems: All systems reviewed & are unremarkable except as noted in HPI and below PMFSH Past Medical History Medical History Bipolar disorder Cerebrovascular accident Chronic anticoagulation Chronic obstructive pulmonary disease Chronic respiratory failure with hypoxia and hypercapnia Combined systolic and diastolic congestive heart failure Echocardiogram on 12/16/2021 showed a mildly enlarged LV chamber, [id number] reduced left ventricular systolic function with an EF estimated 40 to 45%, and abnormal diastolic function. Coronary artery disease Deep venous thrombosis Depression Diabetic neuropathy Generalized anxiety disorder History of trauma Traumatic brain injury years ago after a fall. Insulin dependent diabetes mellitus Mild pulmonary hypertension Estimated pulmonary arterial systolic pressure was 40 mmHg on echocardiogram in November 2021. Obstructive sleep apnea Non
--- NOTE | 2023-05-09 18:19 | PC.NURSE ---
pt refusing to keep bp cuff, monitor, and pulse ox on. pulls off. pt educated on importance of monitoring, pt still refusing
[2023-05-09 18:28] LABS: Basophils Percent Auto 0.3 % (0.2-1.2); Eosinophils Absolute Auto 0.2 K/mm3 (0-0.3); Eosinophils Percent Auto 3.2 % (0-4.4); Hematocrit 38.5 % (42.0-52.0); Hemoglobin 11.2 g/dL (14.0-18.0); Immature Granulocyte Absolute 0.03 K/mm3 (0.00-0.031); Immature Granulocyte Percent A 0.4 % (0-0.5); Lymphocytes Absolute Auto 1.37 K/mm3 (0.9-3.2); Lymphocytes Percent Auto 20.1 % (18.3-44.2); Mean Corpuscular HGB Conc 29.1 g/dl (32-36); Mean Corpuscular Hemoglobin 28.3 pg (26-34); Mean Corpuscular Volume 97.2 fl (80-100); Mean Platelet Volume 9.6 fl (7.4-10.4); Monocytes Absolute Auto 0.7 K/mm3 (0.1-0.6); Monocytes Percent Auto 10.1 % (2.6-8.5); Neutrophils Absolute Auto 4.5 K/mm3 (1.3-6.7); Neutrophils Percent Auto 65.9 % (45.5-73.1); Platelet Count Result 187 k/mm3 (150-375); Red Blood Count 3.96 M/mm3 (4.6-6.20); Red Cell Distribution Width 13.7 % (11.5-14.5); White Blood Count 6.8 K/mm3 (4.5-10.0)
[2023-05-09 18:36] LABS: INR 1.5; Prothrombin Time 19.5 Seconds (11.1-14.7)
[2023-05-09 18:37] LABS: Partial Thromboplastin Time 34.7 SECONDS (22.3-36.8)
[2023-05-09 18:46] LABS: Alanine Aminotransferase 30 U/L (6-50); Albumin Level 3.9 g/dL (3.5-5.1); Alkaline Phosphatase 100 U/L (38-126); Aspartate Amino Transferase 31 U/L (17-59); Bilirubin,Total 0.4 mg/dL (0.2-1.3); Blood Urea Nitrogen 18 mg/dL (9-20); Calcium 9.3 mg/dL (8.4-10.2); Carbon Dioxide > 40 mmol/L (22-30); Chloride 93 mmol/L (98-107); Estimated CRCL calculation 102 ml/min; Estimated Glomerular Filt Rate > 60; Glucose 252 mg/dL (65-110); Potassium 4.2 mmol/L (3.4-5.0); Sodium 139 mmol/L (137-145)
[2023-05-09 18:50] LABS: NT Pro B Type Natriuretic Pept 212 pg/mL (19.9-100); Troponin I 0.015 ng/mL (0.000-0.034)
[2023-05-09 18:53] LABS: Platelet Estimate Adequate (Adequate)
[2023-05-09 18:53] LABS: Alveolar/Arterial O2 Gradient 103.4 mmHg; Base Excess ABG 7.3 mEq/l (+/-2.0); Device NASAL CANNULA; Fractional Inspired Oxygen 36 %; HCO3 ABG 33.9 mEq/l (22.0-26.0); Modified Allen's Test Pass; Oxygen Content ABG 16.5 %vol (16.0-22.0); Oxygen Saturation ABG 96.3 % (95.0-100.0); Oxyhemoglobin 94.8 % THb (90.0-100.0); PCO2 ABG 57.6 mmHg (35.0-45.0); PO2 ABG 86.5 mmHg (80.0-100.0); Site Drawn RIGHT RADIAL; Total Hemoglobin 12.3 g/dL (12.0-18.0); pH ABG 7.388 (7.350-7.450)
[2023-05-09 18:54] LABS: Hypochromasia 1+ (NORMAL); Schistocytes None Seen (NORMAL)
--- NOTE | 2023-05-09 21:32 | PC.NURSE ---
RN on day shift documented 28 for a pulse ox and 96 for respiration rate. I am unable to edit those numbers at this time.
[2023-05-09] MEDS: CEFDINIR 300 MG CAPSULE PO (21:33)
[2023-05-09 21:37] VITALS: BP 170/80; PULSE 70; RESP 20; TEMP 36.5; O2SAT 98
[2023-05-09 21:55] VITALS: BP 171/91; PULSE 70; RESP 25; O2SAT 98
== END 2023-05-09 22:38 ==
PROVIDERS: Emergency Provider Emergency Medicine; PCP Pediatrics Neonatal-Perinatal Medicine
DX: J18.9 Pneumonia, unspecified organism (principal); J44.9 Chronic obstructive pulmonary disease, unspecified; J96.11 Chronic respiratory failure with hypoxia; J96.12 Chronic respiratory failure with hypercapnia; I50.40 Unspecified combined systolic (congestive) and diastolic (congestive) heart failure; I25.10 Atherosclerotic heart disease of native coronary artery without angina pectoris; I27.20 Pulmonary hypertension, unspecified; E11.40 Type 2 diabetes mellitus with diabetic neuropathy, unspecified; I48.0 Paroxysmal atrial fibrillation; I48.92 Unspecified atrial flutter; G47.33 Obstructive sleep apnea (adult) (pediatric); F41.1 Generalized anxiety disorder; F31.9 Bipolar disorder, unspecified; F17.210 Nicotine dependence, cigarettes, uncomplicated; Z95.5 Presence of coronary angioplasty implant and graft; Z95.0 Presence of cardiac pacemaker; Z86.718 Personal history of other venous thrombosis and embolism; Z86.73 Personal history of transient ischemic attack (TIA), and cerebral infarction without residual deficits; Z87.820 Personal history of traumatic brain injury; Z79.01 Long term (current) use of anticoagulants; Z79.82 Long term (current) use of aspirin; Z79.4 Long term (current) use of insulin; I51.7 Cardiomegaly; I45.2 Bifascicular block
CPT/HCPCS: 36415; 36600; 71046; 80053; 82805; 83880; 84484; 85025; 85610; 85730; 87040; 93005; 99284; A9270

== ENCOUNTER 2023-10-20 04:02 | Inpatient (IN) | payer OTHER, SELFPAY ==
[2023-10-20] VITALS (42 sets, daily range): BP systolic 127–181; BP diastolic 59–131; PULSE 73–125; RESP 17–41; TEMP 36.7–37.3; O2SAT 93–98
--- NOTE | ~2023-10-20 | XR_ITS ---
XR chest 1V portable DATE: 10/20/2023 04:37 INDICATION: Shortness of breath TECHNIQUE: Portable AP chest on 10/20/2023 at 0431 hours COMPARISON: 05/09/2023 AP and lateral chest FINDINGS: Cardiomegaly. Left dual-lead pacemaker device. Aortic calcification. There is a pulmonary v ascular redistribution which suggests pulmonary venous hypertension. There is suggestion of patchy infiltrates in the mid and particularly lower lung zones. Prominent rig ht pleural calcification. The costophrenic angles are minimally blunted. Small pleural effusions are not excluded. No evidence of pneumothorax. Diffuse osteopenia. IMPRESSION: Probable patchy infiltrates and/or atelectasis in the mid and lower lung zones Prominent right pleural calcification Cardiomegaly, aortic atherosclerosis Left dual-lead pacemaker Reviewed, dictated and finalized at location A. M BUNDLER
--- NOTE | ~2023-10-20 | XR_ITS ---
XR chest 1V portable DATE: 10/21/2023 05:50 INDICATION: Congestive heart failure TECHNIQUE: Portable AP chest on 10/17/2023 at 0529 hours COMPARISON: 10/20/2020 portable AP chest at 0431 hours FINDINGS: Cardiomegaly. Aortic calcification. Left-sided dual-lead pacemaker device with leads in expected position. Pulmonary vascular congestion and redistribution. Bilateral pulmonary infiltrates suggesting pulmonar y edema. Pneumonia is not excluded. IMPRESSION: Cardiomegaly, congestive changes, bilateral pulmonary infiltrates suggesting pulmonary ed ez. Pneumonia is not excluded Reviewed, dictated and finalized at location A. [employer] AND RESTAURANT IMPRESSION: Cardiomegaly, congestive changes, bilateral pulmonary infiltrates s uggesting pulmonary edema. Pneumonia is not excluded
--- NOTE | 2023-10-20 04:07 | ECG_ITS ---
Measurements Intervals [place] Rate: 114 P: ID: 0 QRS: -64 QRSD: 155 T: 80 QT: 357 QTc: 493 Interpretive Statements UNCERTAIN REGULAR RHYTHM, POSSIBLY ATRIAL FLUTTER RIGHT BUNDLE BRANCH BLOCK [120+ ms QRS DURATION, UPRIGHT V1, 40+ ms S IN I/aVL/V4/V5/V6] LEFT ANTERIOR FASCICULAR BLOCK [QRS AXIS <= -45, QR IN I, RS IN II] POOR R-WAVE PROGRESSION COMPARED TO ECG 05/09/2023 17:46:23 THE RATE IS FASTER, AND VENTRICULAR PACING IS NOT NOTED ON THIS STUDY. Electronically Signed On 10-20-2023 9:09:32 METAL WIRE TECHNICIAN by Brittny Madrigal M.D.
[2023-10-20 04:33] LABS: Alveolar/Arterial O2 Gradient 102.8 mmHg; Base Excess ABG 16.5 mEq/l (+/-2.0); Carboxyhemoglobin 0.4 % THb (0-2.0); Device NASAL CANNULA; Fractional Inspired Oxygen 36 %; Methemoglobin ABG 0.2 %THb (0-1.5); Modified Allen's Test Unable to perform; Oxygen Content ABG 14.6 %vol (16.0-22.0); Oxygen Saturation ABG 90.1 % (95.0-100.0); Oxyhemoglobin 90.7 % THb (90.0-100.0); PCO2 ABG 78.8 mmHg (35.0-45.0); PO2 ABG 62.5 mmHg (80.0-100.0); PO2 FiO2 Ratio Arterial Blood 1.74 %; Reduced Hemoglobin 8.7 %THb (0-5.0); Site Drawn RIGHT RADIAL; Total Hemoglobin 11.4 g/dL (12.0-18.0); pH ABG 7.375 (7.350-7.450)
--- NOTE | 2023-10-20 04:52 | ED.GENADULT ---
HPI - General Adult General Chief complaint: Shortness of Breath/Dyspnea Stated complaint: SOB Time Seen by Provider: 10/20/23 04:06 History of Present Illness HPI narrative: 62-year-old male with history of hypercapnic respiratory failure, COPD, atrial flutter, pneumonia, CHF, diabetic neuropathy, sleep apnea presenting to the emergency department for evaluation for increased shortness of breath. The patient is normally supposed to be wearing a CPAP at nighttime but patient did not wear it tonight. Patient arrived to the ED by EMS after getting a breathing treatment Related Data Home Medications Medication Instructions Recorded Confirmed amantadine HCl 100 mg tablet 100 mg PO DAILY 11/26/20 10/20/23 aspirin 81 mg tablet 81 mg PO DAILY 11/26/20 10/20/23 atorvastatin 10 mg tablet 10 mg PO HS 11/26/20 10/20/23 furosemide 40 mg tablet (Lasix) 40 mg PO DAILY 11/26/20 10/20/23 albuterol sulfate 90 mcg/actuation 2 puff inhalation Q4H 12/15/21 10/20/23 aerosol inhaler buspirone 10 mg tablet 10 mg PO TID 12/15/21 10/20/23 famotidine 20 mg tablet 20 mg PO BID 12/15/21 10/20/23 polyethylene glycol 3350 17 17 g PO DAILY PRN Constipation 12/15/21 10/20/23 gram/dose oral powder sennosides 8.6 mg-docusate sodium 1 tablet PO BID PRN Constipation 12/15/21 10/20/23 50 mg tablet (Senexon-S) tamsulosin 0.4 mg capsule 0.4 mg PO DAILY 12/15/21 10/20/23 multivitamin (Daily-Isidro tablet) 1 tablet PO DAILY 12/16/21 10/20/23 albuterol sulfate 2.5 mg/3 mL 2.5 mg inhalation Q4-6H PRN Dyspnea 02/22/22 10/20/23 (0.083 %) solution for nebulization potassium chloride 20 mEq 20 meq PO DAILY 02/22/22 10/20/23 tablet,extended release Anoro Ellipta 1 puff inhalation DAILY 02/08/23 10/20/23 ketoconazole 2 % shampoo 4 applic topical DAILY 02/08/23 10/20/23 ketoconazole 2 % topical cream 1 applic topical BID 02/08/23 10/20/23 gabapentin 100 mg capsule 100 mg PO 0800,1200 07/31/23 10/20/23 gabapentin 400 mg capsule 400 mg PO QHS 07/31/23 10/20/23 insulin glargine 100 unit/mL 28 unit subcut QHS 07/31/23 10/20/23 subcutaneous solution (Lantus U-100 Insulin) insulin lispro 100 unit/mL 9 unit subcut USEASDIRECTD 07/31/23 10/20/23 subcutaneous pen rivaroxaban 20 mg tablet (Xarelto) 20 mg PO QAM 07/31/23 10/20/23 cholecalciferol (vitamin D3) 125 125 mcg PO DAILY 10/20/23 10/20/23 mcg (5,000 unit) tablet (Vitamin D3) risperidone 0.5 mg tablet 0.5 mg PO QNOON 10/20/23 10/20/23 trazodone 50 mg tablet 25 mg PO HS 10/20/23 10/20/23 Allergies Allergy/AdvReac Type Severity Reaction Status Date / Time acetaminophen Allergy Unknown Unknown Verified 07/31/23 15:32 Review of Systems Review of Systems: All systems reviewed & are unremarkable except as noted in HPI and below PMFSH Past Medical History Medical History (Updated 10/20/23 @ 19:38 by Brittny Madrigal MD) Bipolar disorder Cerebrovascular accident Chronic anticoagulation Chronic obstructive pulmonary disease Chronic respiratory failure with hypoxia and hypercapnia Combined systolic and diastolic congestive heart failure Echocardiogram on 12/16/2021 showed a mildly enlarged LV chamber, [id number] reduced left ventricular systolic function with an EF estimated 40 to 45%, and abnormal diastolic function. Coronary artery disease Deep venous thrombosis Depression Diabetic neuropathy Generalized anxiety disorder History of trauma Traumatic brain injury years ago after a fall. Hypertension Insulin dependent diabetes mellitus Mild pulmonary hypertension Estimated pulmonary arterial systolic pressure was 40 mmHg on echocardiogram in November 2021. Obstructive sleep apnea Noncompliant with BiPAP. On 2 L nasal cannula at nighttime. Pacemaker Paroxysmal atrial fibrillation Paroxysmal atrial flutter Transient ischemic attack Surgical History Surgical History History of coronary artery stent placement History of open reduction
[2023-10-20 05:00] LABS: Basophils Percent Auto 0.2 % (0.2-1.2); Eosinophils Absolute Auto 0.1 K/mm3 (0-0.3); Eosinophils Percent Auto 2.1 % (0-4.4); Hematocrit 36.7 % (42.0-52.0); Hemoglobin 10.5 g/dL (14.0-18.0); Immature Granulocyte Absolute 0.02 K/mm3 (0.00-0.031); Immature Granulocyte Percent A 0.3 % (0-0.5); Lymphocytes Absolute Auto 0.89 K/mm3 (0.9-3.2); Lymphocytes Percent Auto 14.1 % (18.3-44.2); Mean Corpuscular HGB Conc 28.6 g/dl (32-36); Mean Corpuscular Hemoglobin 28.6 pg (26-34); Mean Platelet Volume 10.3 fl (7.4-10.4); Monocytes Absolute Auto 0.7 K/mm3 (0.1-0.6); Monocytes Percent Auto 11.4 % (2.6-8.5); Neutrophils Absolute Auto 4.5 K/mm3 (1.3-6.7); Neutrophils Percent Auto 71.9 % (45.5-73.1); Platelet Count Result 156 k/mm3 (150-375); Red Blood Count 3.67 M/mm3 (4.6-6.20); Red Cell Distribution Width 13.4 % (11.5-14.5); White Blood Count 6.3 K/mm3 (4.5-10.0)
--- NOTE | 2023-10-20 05:15 | PC.NURSE ---
Pt notified this Rn after using urinal that I need help . This Rn asked pt what he needed assistance with and pt stated take this thing off me , while pointing to pt bipap mask. This RN explained to pt the benefits of wearing the bipap mask and the risks of not wearing bipap mask. Pt began tugging on masks and repeating take it off, take it off . This Rn educated pt on how to properly wear bipap and to use relaxation techniques to calm pt. Pt shook head in understanding. EDP Dr. Valentine made aware.
[2023-10-20 05:18] LABS: Influenza A QL RT-PCR Negative (Negative); Influenza B QL RT-PCR Negative (Negative); RSV RNA, RT-PCR Negative (Negative); SARS-CoV-2 RNA PCR Negative (Negative)
[2023-10-20 05:23] LABS: Alanine Aminotransferase 22 U/L (6-50); Alkaline Phosphatase 103 U/L (38-126); Aspartate Amino Transferase 34 U/L (17-59); Bilirubin,Total 0.6 mg/dL (0.2-1.3); Blood Urea Nitrogen 22 mg/dL (9-20); Calcium 8.8 mg/dL (8.4-10.2); Carbon Dioxide > 40 mmol/L (22-30); Chloride 93 mmol/L (98-107); Estimated CRCL calculation 119 ml/min; Estimated Glomerular Filt Rate > 60; Glucose 184 mg/dL (65-110); Potassium 4.4 mmol/L (3.4-5.0); Sodium 143 mmol/L (137-145)
[2023-10-20 05:27] LABS: NT Pro B Type Natriuretic Pept 371 pg/mL (19.9-100)
--- NOTE | 2023-10-20 05:32 | PC.NURSE ---
pt notified this Rn of help needed to remove bipap mask. This RN educated pt the benefits of wearing the bipap, along with the risks and options of not wearing the bipap. Pt stated I want this thing off . This RN explained the importance of wearing bipap. EDp Dr. Valentine made aware.
--- NOTE | 2023-10-20 07:28 | PC.NURSE ---
This RN answered pts call light where I found the pt attempting to pull off his bipap mask. Pt was educated on importance of leaving the mask on and pt responded by yelling, no! at this RN. Pt then stopped attempting to remove bipap mask.
[2023-10-20] MEDS: ALBUTEROL SULFATE NEB 2.5 MG/3 ML INH INHALATION ×2 (07:41→20:18)
--- NOTE | 2023-10-20 10:08 | PM.IMHP ---
H&P: HPI History of Present Illness Date/Time: 10/20/23 10:08 Chief Complaint: Shortness of breath Narrative: Mr. Jp Morley is a 62 years old male resident of assisted will normally uses CPAP at night with history of multiple medical problems including history of hypercapnic respiratory failure, COPD, atrial flutter, pneumonia, CHF, diabetic neuropathy, sleep apnea came to the emergency room with complaints of having increasing shortness of breath the last few days. According to the patient he was having SOB for the last few days and failed to use his CPAP last night. He also complained of having cough and chills. No chest pain or abdominal pain. In ER patient was put on BIPAP and transferred to floor for further management. Review of Systems Review of Systems: All systems reviewed & are unremarkable except as noted in HPI and below (the history and physical exam.) [facility] Past Medical History Medical History Bipolar disorder Cerebrovascular accident Chronic anticoagulation Chronic obstructive pulmonary disease Chronic respiratory failure with hypoxia and hypercapnia Combined systolic and diastolic congestive heart failure Echocardiogram on 12/16/2021 showed a mildly enlarged LV chamber, [id number] reduced left ventricular systolic function with an EF estimated 40 to 45%, and abnormal diastolic function. Coronary artery disease Deep venous thrombosis Depression Diabetic neuropathy Generalized anxiety disorder History of trauma Traumatic brain injury years ago after a fall. Insulin dependent diabetes mellitus Mild pulmonary hypertension Estimated pulmonary arterial systolic pressure was 40 mmHg on echocardiogram in November 2021. Obstructive sleep apnea Noncompliant with BiPAP. On 2 L nasal cannula at nighttime. Paroxysmal atrial fibrillation Paroxysmal atrial flutter Transient ischemic attack Surgical History Surgical History History of coronary artery stent placement History of open reduction and internal fixation (ORIF) procedure Repair of right lower extremity and left shoulder fractures. History of pacemaker History of tracheostomy Family History Family History Other Cancer Social History Social History Social History: Resident at [facility]. He is and has 1 child. On disability since his traumatic brain injury. He smoked up to 2 packs of cigarettes a day but is now down to about a pack a day. He has smoked for at least 30+ years. No alcohol or illicit substance abuse. Healthcare power of sighter: Simone Morley. Code status: Full code. Smoking packs per day: 1 Smoking cigarettes per day: 20.0 Years smoked: 30 Smoking pack-years: 30.00 Smoking status: Former smoker Tobacco type: cigarettes Second hand tobacco smoke exposure: No Alcohol intake: never Substance use: never Spiritual care concerns: No Meds Home Medications and Allergies Home Medications Medication Instructions Recorded Confirmed Type amantadine HCl 100 mg tablet 100 mg PO DAILY 11/26/20 07/31/23 History aspirin 81 mg tablet 81 mg PO DAILY 11/26/20 07/31/23 History atorvastatin 10 mg tablet 10 mg PO HS 11/26/20 07/31/23 History diltiazem HCl 120 mg 120 mg PO DAILY 11/26/20 07/31/23 History capsule,extended release 24 hr, controlled furosemide 40 mg tablet (Lasix) 40 mg PO DAILY 11/26/20 07/31/23 History losartan 50 mg tablet 50 mg PO DAILY 11/26/20 07/31/23 History albuterol sulfate 90 mcg/actuation 2 puff inhalation Q4H 12/15/21 07/31/23 History aerosol inhaler buspirone 10 mg tablet 5 mg PO TID 12/15/21 07/31/23 History ergocalciferol (vitamin D2) 1,250 1 unit PO MONTHLY 12/15/21 07/31/23 History mcg (50,000 unit) capsule famotidine 20 mg tablet 20 mg PO B
[2023-10-20 12:23] LABS: Troponin I 0.053 ng/mL (0.000-0.034)
[2023-10-20 12:30] LABS: Base Excess ABG 17.7 mEq/l (+/-2.0); Fractional Inspired Oxygen 32 %; HCO3 ABG 45.5 mEq/l (22.0-26.0); Oxygen Content ABG 15.3 %vol (16.0-22.0); Oxygen Saturation ABG 90.4 % (95.0-100.0); Oxyhemoglobin 91.5 % THb (90.0-100.0); PO2 FiO2 Ratio Arterial Blood 1.88 %; Total Hemoglobin 11.9 g/dL (12.0-18.0); pH ABG 7.424 (7.350-7.450)
[2023-10-20 12:32] LABS: Modified Allen's Test Pass; PCO2 ABG 71.1 mmHg (35.0-45.0); Site Drawn RIGHT RADIAL
[2023-10-20 12:33] LABS: Device NASAL CANNULA
[2023-10-20] MEDS: LORazepam INJ (*CRX) 2 MG/ML VIAL 0.5 MG IV PUSH (14:40)
[2023-10-20] MEDS: FUROSEMIDE INJ 40 MG/4 ML VIAL IV PUSH (14:48)
[2023-10-20] MEDS: AZITHROMYCIN 250 MG TABLET 500 MG PO (14:48)
[2023-10-20] MEDS: busPIRone HCL 10 MG TABLET PO ×2 (14:48→21:59)
--- NOTE | 2023-10-20 14:50 | ADMGEN ---
This patient, Jp Morley, was admitted to IMU Room 207-01. Patient/family oriented to hospital policies and general routines including ID bracelet, bed and alarms, visiting hours, pain management, procedures, bathroom and other care routines, personal items, smoking policy, room service/diet, and visiting hours. Information on how to activate the Rapid Response Team has been discussed. Patient/Family are encouraged to report perceived risks to care and to ask questions if they do not understand what they are told or what they should do.
[2023-10-20 15:29] LABS: Troponin I 0.057 ng/mL (0.000-0.034)
--- NOTE | 2023-10-20 17:34 | PCRCNOTE ---
1400 Tx no give due to care coordination
[2023-10-20 18:43] LABS: Troponin I 0.096 ng/mL (0.000-0.034)
--- NOTE | 2023-10-20 19:06 | PM.CNCAR ---
Assessment and Plan Assessment and plan (1) Elevated troponin: Code(s): R79.89 - Other specified abnormal findings of blood chemistry Status: Acute Assessment and Plan: Mildly elevated troponins noted on admission, no history of chest pain elicited, no ischemic EKG changes. I suspect this is related to the patient's hypertension, hypercapnia, CHF and tachycardia. Doubt any ACS event. --no further evaluation needed. (2) Acute on chronic respiratory failure with hypoxia and hypercapnia: Code(s): J96.21 - Acute and chronic respiratory failure with hypoxia; J96.22 - Acute and chronic respiratory failure with hypercapnia Status: Acute Assessment and Plan: Acute on chronic respiratory failure requiring BiPAP. History of sleep apnea, possibly noncompliant. Possible pneumonia. (3) Acute on chronic combined systolic (congestive) and diastolic (congestive) heart failure: Code(s): I50.43 - Acute on chronic combined systolic (congestive) and diastolic (congestive) heart failure Status: Acute Assessment and Plan: Mild acute on chronic systolic and diastolic heart failure. History of cardiomyopathy EF 40-45%. Not very volume overloaded. --continue furosemide 40 mg IV push daily for a couple days --follow daily BMP --echocardiogram --increase losartan --add spironolactone --Poss SGLT2 inhibitor at a later date (4) Paroxysmal atrial fibrillation: Code(s): I48.0 - Paroxysmal atrial fibrillation Status: Acute Assessment and Plan: History of paroxysmal atrial fibrillation-flutter. Appears to be at in AFib with occasional RVR which is not helping his overall situation, with ventricular tracking. Currently on Cardizem po for rate control, but with LV dysfunction it is preferable it is to switch him to metoprolol. --metoprolol 5 mg IV push q.6 hours --continue Xarelto (5) Pacemaker: Code(s): Z95.0 - Presence of cardiac pacemaker Status: Acute Assessment and Plan: Question patient later regarding follow-up of his pacemaker (6) Hypertension: Code(s): I10 - Essential (primary) hypertension Status: Acute Assessment and Plan: Systolic BP running 150-180 here. --increase losartan for CHF, and IV metoprolol for AFib, will follow. (7) Coronary artery disease: Code(s): I25.10 - Atherosclerotic heart disease of torres martinez coronary artery without angina pectoris Status: Acute Assessment and Plan: Carries a history of CAD. --continue Xarelto --increase atorvastatin from 10 mg daily to 40 mg daily per guidelines History of Present Illness History of Present Illness Consult date/time: 10/20/23 19:06 Reason For Visit: Hypercapnic Respiratory Failure Narrative: Jp Morley is a 62-year-old male whom of the asked to see at the request of Dr. Marsh for my advice and opinion regarding his elevated troponins in consultation. Mr. Morley has a history of hypercapnic respiratory failure, COPD, atrial flutter, pneumonia, CHF, morbid obesity, dual-chamber pacemaker, cardiomyopathy with EF 40-45% in 2021, diabetic neuropathy, and sleep apnea. It is unclear who follows his pacemaker. He is said to have CAD and status post stent in EMR history. He lives at [facility]. History is limited because the patient is sleepy and on BiPAP, and obtain from him and EMR. Apparently he has been short of breath the last few days, possibly with of cough and chills. He failed uses CPAP last night and was more short of breath this morning and was brought to the ER by EMS. On arrival his heart rate was 115, blood pressure 165/131 his O2 sat was 93% on 4 L. his blood gas showed a pH of 7.4, pCO2 of 79 and PO2 of 63 while on O2. He was placed on BiPAP. He is being treated for pneumonia and acute on chronic systolic and diastolic CHF with furosemide. He denies any chest pain. Troponins: 0.05, 0.06, 0.096 ProBNP 371 EKG th
[2023-10-20] MEDS: IPRATROPIUM BR 0.02% INH SOLN 0.5 MG/2.5 ML VIAL INHALATION (20:18)
[2023-10-20] MEDS: RIVAROXABAN 20 MG TABLET PO (21:59)
[2023-10-20] MEDS: ATORVASTATIN 40 MG TABLET PO (21:59)
[2023-10-20] MEDS: FAMOTIDINE 20 MG TABLET PO (21:59)
[2023-10-20] MEDS: GABAPENTIN 400 MG CAPSULE PO (21:59)
[2023-10-20] MEDS: traZODone HCL 25 MG TABLET PO (21:59)
[2023-10-20] MEDS: METOPROLOL TARTRATE INJ 5 MG/5 ML VIAL IV PUSH (22:12)
[2023-10-20] MEDS: INSULIN GLARGINE (*BKC) 100 UNITS/ML 28 UNITS SUB-Q (22:14)
[2023-10-20 22:18] LABS: Glucose Point of Care 170 mg/dl (65-105)
[2023-10-21] VITALS (31 sets, daily range): BP systolic 136–168; BP diastolic 72–99; PULSE 69–116; RESP 18–30; TEMP 35.7–37.2; O2SAT 94–98
[2023-10-21] MEDS: IPRATROPIUM BR 0.02% INH SOLN 0.5 MG/2.5 ML VIAL INHALATION ×3 (01:53→20:46)
[2023-10-21] MEDS: ALBUTEROL SULFATE NEB 2.5 MG/3 ML INH INHALATION ×3 (01:53→20:46)
[2023-10-21] MEDS: METOPROLOL TARTRATE INJ 5 MG/5 ML VIAL IV PUSH ×2 (03:11→10:17)
[2023-10-21 04:40] LABS: Alveolar/Arterial O2 Gradient 93.9 mmHg; Base Excess ABG 17.9 mEq/l (+/-2.0); Fractional Inspired Oxygen 35 %; HCO3 ABG 45.4 mEq/l (22.0-26.0); Oxygen Content ABG 15.5 %vol (16.0-22.0); Oxygen Saturation ABG 94.8 % (95.0-100.0); PO2 ABG 74.9 mmHg (80.0-100.0); PO2 FiO2 Ratio Arterial Blood 2.14 %; Total Hemoglobin 11.7 g/dL (12.0-18.0); pH ABG 7.433 (7.350-7.450)
[2023-10-21 04:42] LABS: Device NON-INVASIVE VENT; Modified Allen's Test Pass; PCO2 ABG 69.5 mmHg (35.0-45.0); Site Drawn RIGHT RADIAL
[2023-10-21 04:43] LABS: Non-Invasive Expiratory Pressure 6 CMH2O; Non-Invasive Inspiratory Pressure 14 CMH2O; Non-Invasive Vent Rate 22 /MIN
[2023-10-21 04:57] LABS: Basophils Percent Auto 0.3 % (0.2-1.2); Eosinophils Absolute Auto 0.2 K/mm3 (0-0.3); Eosinophils Percent Auto 2.1 % (0-4.4); Hematocrit 36.7 % (42.0-52.0); Hemoglobin 10.6 g/dL (14.0-18.0); Immature Granulocyte Absolute 0.03 K/mm3 (0.00-0.031); Immature Granulocyte Percent A 0.4 % (0-0.5); Lymphocytes Absolute Auto 1.21 K/mm3 (0.9-3.2); Lymphocytes Percent Auto 17.3 % (18.3-44.2); Mean Corpuscular HGB Conc 28.9 g/dl (32-36); Mean Corpuscular Hemoglobin 28.6 pg (26-34); Mean Corpuscular Volume 99.2 fl (80-100); Mean Platelet Volume 10.1 fl (7.4-10.4); Monocytes Percent Auto 14.4 % (2.6-8.5); Neutrophils Absolute Auto 4.6 K/mm3 (1.3-6.7); Neutrophils Percent Auto 65.5 % (45.5-73.1); Platelet Count Result 159 k/mm3 (150-375); Red Cell Distribution Width 13.5 % (11.5-14.5)
[2023-10-21 05:16] LABS: Alanine Aminotransferase 22 U/L (6-50); Albumin Level 3.7 g/dL (3.5-5.1); Alkaline Phosphatase 90 U/L (38-126); Aspartate Amino Transferase 37 U/L (17-59); Bilirubin,Total 0.8 mg/dL (0.2-1.3); Blood Urea Nitrogen 22 mg/dL (9-20); Calcium 8.8 mg/dL (8.4-10.2); Carbon Dioxide > 40 mmol/L (22-30); Chloride 92 mmol/L (98-107); Estimated CRCL calculation 103 ml/min; Estimated Glomerular Filt Rate > 60; Glucose 149 mg/dL (65-110); Potassium 3.5 mmol/L (3.4-5.0); Sodium 142 mmol/L (137-145)
[2023-10-21 05:31] LABS: Platelet Estimate Adequate (Adequate)
[2023-10-21 05:32] LABS: Anisocytosis 1+ (NORMAL); Poikilocytosis 1+ (NORMAL)
[2023-10-21 05:33] LABS: Schistocytes None Seen (NORMAL); Stomatocytes 1+ (NORMAL)
[2023-10-21] MEDS: busPIRone HCL 10 MG TABLET PO ×3 (05:37→20:43)
--- NOTE | 2023-10-21 06:00 | ECG_ITS ---
Measurements Intervals [place] Rate: 69 P: [place]: 0 QRS: -88 QRSD: 200 T: -28 QT: 439 QTc: 472 Interpretive Statements ATRIAL FLUTTER ELECTRONIC VENTRICULAR PACEMAKER ABNORMAL RHYTHM ECG COMPARED TO ECG 10/20/2023 04:10:15 NO SIGNIFICANT CHANGES Electronically Signed On 10-21-2023 17:05:59 DITCH REPAIRER by Brittny Madrigal M.D.
[2023-10-21 08:09] LABS: Glucose Point of Care 162 mg/dl (65-105)
[2023-10-21] MEDS: ASPIRIN 81 MG CHEWABLE TABLET PO (10:15)
[2023-10-21] MEDS: POTASSIUM CHLORIDE 20 MEQ ER TABLET PO (10:17)
[2023-10-21] MEDS: AZITHROMYCIN 250 MG TABLET 500 MG PO (10:17)
[2023-10-21] MEDS: AMANTADINE HCL 100 MG CAPSULE PO (10:17)
[2023-10-21] MEDS: cefTRIAXone 2 GM/NS 100 ML 2 GM/100 ML BAG IVPB (10:18)
[2023-10-21] MEDS: CHOLECALCIFEROL 1,000 UNITS TABLET 5000 UNITS PO (10:18)
[2023-10-21] MEDS: FUROSEMIDE INJ 40 MG/4 ML VIAL IV PUSH (10:19)
[2023-10-21] MEDS: PANTOPRAZOLE 40 MG TABLET PO (10:19)
[2023-10-21] MEDS: MULTIVITAMINS THERAPEUTIC TAB (*BKC) 1 TABLET PO (10:19)
[2023-10-21] MEDS: LOSARTAN POTASSIUM 100 MG TABLET PO (10:19)
[2023-10-21] MEDS: TAMSULOSIN HCL 0.4 MG CAPSULE PO (10:19)
[2023-10-21] MEDS: SPIRONOLACTONE 25 MG TABLET PO (10:19)
[2023-10-21] MEDS: FAMOTIDINE 20 MG TABLET PO ×2 (10:19→16:10)
[2023-10-21] MEDS: MICONAZOLE NITRATE 2% CREAM 30 GM TUBE 1 APPLIC TOPICAL ×2 (10:20→16:11)
[2023-10-21] MEDS: GABAPENTIN 100 MG CAPSULE PO ×2 (10:24→12:20)
--- NOTE | 2023-10-21 11:28 | PM.PNCARD ---
Progress Note: A&P Assessment and Plan (1) Acute on chronic respiratory failure with hypoxia and hypercapnia: Code(s): J96.21 - Acute and chronic respiratory failure with hypoxia; J96.22 - Acute and chronic respiratory failure with hypercapnia Status: Acute Assessment and Plan: Acute on chronic respiratory failure requiring BiPAP. History of sleep apnea, possibly noncompliant. Possible pneumonia. Now off BiPAP. Looks like he has chronic hypercapnea. (2) Acute on chronic combined systolic (congestive) and diastolic (congestive) heart failure: Code(s): I50.43 - Acute on chronic combined systolic (congestive) and diastolic (congestive) heart failure Status: Acute Assessment and Plan: Mild acute on chronic systolic and diastolic heart failure. History of cardiomyopathy EF 40-45%. Not very volume overloaded. --change furosemide 40 mg IV push to p.o. tomorrow. --follow daily BMP --echocardiogram --increased losartan --added spironolactone --K+ borderline, will supplement 20mEq X1 --Poss SGLT2 inhibitor at a later date (3) Paroxysmal atrial fibrillation: Code(s): I48.0 - Paroxysmal atrial fibrillation Status: Acute Assessment and Plan: History of paroxysmal atrial fibrillation-flutter. Appears to be at in AFib/flutter with occasional RVR on admission. Was taking Cardizem po for rate control on admission, but with LV dysfunction it is preferable it is to switch him to metoprolol. --metoprolol 5 mg IV push q.6 hours p.r.n. --DC diltiazem, start metoprolol tartrate 25 mg q8Hr --continue Xarelto (4) Elevated troponin: Code(s): R79.89 - Other specified abnormal findings of blood chemistry Status: Acute Assessment and Plan: Mildly elevated troponins noted on admission, no history of chest pain elicited, no ischemic EKG changes. I suspect this is related to the patient's hypertension, hypercapnia, CHF and tachycardia. Doubt any ACS event. --no further evaluation needed. (5) Pacemaker: Code(s): Z95.0 - Presence of cardiac pacemaker Status: Acute Assessment and Plan: Still not clear who his travel sales consultant is or who follows this pacemaker. (6) Hypertension: Code(s): I10 - Essential (primary) hypertension Status: Acute Assessment and Plan: Systolic BP running 150-180 here. --increased losartan , and start metoprolol 25 mg q8H (7) Coronary artery disease: Code(s): I25.10 - Atherosclerotic heart disease of [place] coronary artery without angina pectoris Status: Acute Assessment and Plan: Carries a history of CAD. --continue Xarelto --increased atorvastatin from 10 mg daily to 40 mg daily per guidelines Subjective Date/time seen: 10/21/23 11:28 Interval history: Follow-up for elevated troponins, acute on chronic diastolic CHF, cardiomyopathy (EF 40-45% in 2021). Mr. Morley has a history of hypercapnic respiratory failure, COPD, atrial flutter, pneumonia, CHF, morbid obesity, dual-chamber pacemaker, cardiomyopathy with EF 40-45% in 2021, diabetic neuropathy, and sleep apnea.? It is unclear who follows his pacemaker.? He is said to have CAD and status post stent in EMR history.? He lives at [facility]. 10/20/2023: I felt the mild troponin elevation was due to severe hypertension, hypercapnia, CHF and tachycardia, doubt any ACS event. Increase losartan at spironolactone for CHF, continue furosemide 40 mg IV push. Patient's AFib flutter was at RVR sometimes, changed to IV metoprolol. Date of service 10/21/2023: Off BiPAP, eating lunch w/ gusto. No complaints, feels better. Diuresed 1100 cc's. Telemetry: Atrial flutter, HR 70-100, occ V pacing. Called brother JOSEErnesto Lelia. Does not know anything about the patient's heart disease, does have a travel sales consultant, is his pacemaker checked etc.. Recommends we talk to the custodial as they know. Review of Systems Review of Systems:
[2023-10-21 12:13] LABS: Glucose Point of Care 190 mg/dl (65-105)
[2023-10-21] MEDS: risperiDONE 0.5 MG TABLET PO (12:20)
[2023-10-21] MEDS: METOPROLOL TARTRATE 25 MG TABLET PO ×2 (12:21→20:43)
[2023-10-21] MEDS: traMADol HCL (*CRX) 50 MG TABLET PO ×2 (12:22→20:43)
[2023-10-21] MEDS: INSULIN ASPART (*BKC) 100 UNITS/ML 9 UNITS SUB-Q ×2 (12:23→18:00)
--- NOTE | 2023-10-21 13:36 | PM.IMPN ---
Progress Note: A&P Assessment and Plan (1) Acute hypercapnic respiratory failure: Code(s): J96.02 - Acute respiratory failure with hypercapnia Status: Acute Assessment and Plan: Will continue with oxygen and BiPAP. Nebulizer treatment as needed. Pulmonary consult. (2) Pneumonia involving right lung: Code(s): J18.9 - Pneumonia, unspecified organism Status: Acute Assessment and Plan: 10/20: Blood culture and IV antibiotic repeat chest x-ray in the morning (3) Acute on chronic combined systolic (congestive) and diastolic (congestive) heart failure: Code(s): I50.43 - Acute on chronic combined systolic (congestive) and diastolic (congestive) heart failure Status: Acute Assessment and Plan: Lasix IV daily, continue home medication. Monitor I's and O's (4) Atrial flutter: Code(s): I48.92 - Unspecified atrial flutter Status: Acute Assessment and Plan: Stable on current meds, continue current treatment. 10/21: Cardiology changed diltiazem to metoprolol (5) Diabetes mellitus: Code(s): E11.9 - Type 2 diabetes mellitus without complications Status: Acute Assessment and Plan: Stable on current medications, continue current treatment. (6) Chronic obstructive pulmonary disease: Code(s): J44.9 - Chronic obstructive pulmonary disease, unspecified Status: Acute Assessment and Plan: Stable on current medication, continue current treatment. Time Spent With Patient Time with patient: 25 - 35 minutes Subjective Date/time seen: 10/21/23 14:36 Interval history: 10/20 H&P: Mr. Jp Morley is a 62 years old male resident of care home will normally uses CPAP at night with history of multiple medical problems including history of hypercapnic respiratory failure, COPD, atrial flutter, pneumonia, CHF, diabetic neuropathy, sleep apnea came to the emergency room with complaints of having increasing shortness of breath the last few days. According to the patient he was having SOB for the last few days and failed to use his CPAP last night. He also complained of having cough and chills. No chest pain or abdominal pain. In ER patient was put on BIPAP and transferred to floor for further management. ? Cardiology note: Follow-up for elevated troponins, acute on chronic diastolic CHF, cardiomyopathy (EF 40-45% in 2021). Mr. Morley has a history of hypercapnic respiratory failure, COPD, atrial flutter, pneumonia, CHF, morbid obesity, dual-chamber pacemaker, cardiomyopathy with EF 40-45% in 2021, diabetic neuropathy, and sleep apnea.? It is unclear who follows his pacemaker.? He is said to have CAD and status post stent in EMR history.? He lives at [facility]. 10/20/2023: I felt the mild troponin elevation was due to severe hypertension, hypercapnia, CHF and tachycardia, doubt any ACS event. Increase losartan at spironolactone for CHF, continue furosemide 40 mg IV push. Patient's AFib flutter was at RVR sometimes, changed to IV metoprolol. Date of service 10/21/2023: Off BiPAP, eating lunch w/ gusto. No complaints, feels better. Diuresed 1100 cc's. Telemetry: Atrial flutter, HR 70-100, occ V pacing. Called brother Lelia JOHNSON. 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 Recommends we talk to the care home as they know. 10/21 Hospitalist Rounding: Patient has been impulsive and combative with nursing staff while on BiPap but now that he is on nasal cannula he is resting comfortably with no further complaints at this time. Review of Systems Review of Systems: ROS unobtainable: Yes unobtainable due to mental status Exam Narrative: APPEARANCE:? Resting comfortably, supplemental oxygen by nasal cannula HEAD: normocephalic, atraumatic. EYES: PERRLA/EOMI, conjunctivae clear. NOSE: Normal no drainage THROAT: Pharynx clear, no exudate. NECK: Supple
--- NOTE | 2023-10-21 15:55 | PCRCNOTE ---
Window of time for administration has passed. See next scheduled administration.
[2023-10-21] MEDS: RIVAROXABAN 20 MG TABLET PO (16:10)
[2023-10-21 16:39] LABS: Glucose Point of Care 199 mg/dl (65-105)
[2023-10-21 17:30] LABS: MRSA (PCR) NOT DETECTED (NOT DETECTE)
[2023-10-21 19:39] LABS: Glucose Point of Care 196 mg/dl (65-105)
[2023-10-21] MEDS: GABAPENTIN 400 MG CAPSULE PO (20:43)
[2023-10-21] MEDS: ATORVASTATIN 40 MG TABLET PO (20:43)
[2023-10-21] MEDS: traZODone HCL 25 MG TABLET PO (20:43)
[2023-10-21] MEDS: INSULIN GLARGINE (*BKC) 100 UNITS/ML 28 UNITS SUB-Q (20:47)
[2023-10-22] VITALS (16 sets, daily range): BP systolic 133–150; BP diastolic 76–96; PULSE 66–83; RESP 18–22; TEMP 36–36.6; O2SAT 93–98
[2023-10-22] MEDS: IPRATROPIUM BR 0.02% INH SOLN 0.5 MG/2.5 ML VIAL INHALATION ×3 (02:20→13:10)
[2023-10-22] MEDS: ALBUTEROL SULFATE NEB 2.5 MG/3 ML INH INHALATION ×3 (02:20→13:10)
[2023-10-22 04:55] LABS: Basophils Percent Auto 0.1 % (0.2-1.2); Eosinophils Absolute Auto 0.3 K/mm3 (0-0.3); Hematocrit 38.4 % (42.0-52.0); Hemoglobin 10.8 g/dL (14.0-18.0); Immature Granulocyte Absolute 0.02 K/mm3 (0.00-0.031); Immature Granulocyte Percent A 0.3 % (0-0.5); Lymphocytes Absolute Auto 1.34 K/mm3 (0.9-3.2); Lymphocytes Percent Auto 16.8 % (18.3-44.2); Mean Corpuscular HGB Conc 28.1 g/dl (32-36); Mean Corpuscular Hemoglobin 28.3 pg (26-34); Mean Corpuscular Volume 100.8 fl (80-100); Monocytes Absolute Auto 0.9 K/mm3 (0.1-0.6); Monocytes Percent Auto 11.8 % (2.6-8.5); Neutrophils Absolute Auto 5.4 K/mm3 (1.3-6.7); Platelet Count Result 168 k/mm3 (150-375); Red Blood Count 3.81 M/mm3 (4.6-6.20); Red Cell Distribution Width 13.7 % (11.5-14.5)
[2023-10-22 05:32] LABS: Alanine Aminotransferase 22 U/L (6-50); Albumin Level 3.7 g/dL (3.5-5.1); Alkaline Phosphatase 93 U/L (38-126); Aspartate Amino Transferase 31 U/L (17-59); Bilirubin,Total 0.8 mg/dL (0.2-1.3); Blood Urea Nitrogen 23 mg/dL (9-20); Carbon Dioxide > 40 mmol/L (22-30); Chloride 94 mmol/L (98-107); Estimated CRCL calculation 103 ml/min; Estimated Glomerular Filt Rate > 60; Glucose 168 mg/dL (65-110); Magnesium 1.9 mg/dL (1.6-2.3); Potassium 4.3 mmol/L (3.4-5.0); Sodium 141 mmol/L (137-145)
[2023-10-22] MEDS: METOPROLOL TARTRATE 25 MG TABLET PO (05:45)
[2023-10-22] MEDS: busPIRone HCL 10 MG TABLET PO ×2 (05:45→15:03)
[2023-10-22 08:28] LABS: Glucose Point of Care 202 mg/dl (65-105)
[2023-10-22] MEDS: INSULIN ASPART (*BKC) 100 UNITS/ML SUB-Q ×2 (08:28→11:28)
[2023-10-22] MEDS: MULTIVITAMINS THERAPEUTIC TAB (*BKC) 1 TABLET PO (09:18)
[2023-10-22] MEDS: ASPIRIN 81 MG CHEWABLE TABLET PO (09:18)
[2023-10-22] MEDS: SPIRONOLACTONE 25 MG TABLET PO (09:18)
[2023-10-22] MEDS: FAMOTIDINE 20 MG TABLET PO (09:19)
[2023-10-22] MEDS: cefTRIAXone 2 GM/NS 100 ML 2 GM/100 ML BAG IVPB (09:20)
[2023-10-22] MEDS: AMANTADINE HCL 100 MG CAPSULE PO (09:23)
[2023-10-22] MEDS: PANTOPRAZOLE 40 MG TABLET PO (09:23)
[2023-10-22] MEDS: FUROSEMIDE 40 MG TABLET PO (09:23)
[2023-10-22] MEDS: AZITHROMYCIN 250 MG TABLET 500 MG PO (09:24)
[2023-10-22] MEDS: TAMSULOSIN HCL 0.4 MG CAPSULE PO (09:24)
[2023-10-22] MEDS: POTASSIUM CHLORIDE 20 MEQ ER TABLET PO (09:24)
[2023-10-22] MEDS: CHOLECALCIFEROL 1,000 UNITS TABLET 5000 UNITS PO (09:33)
[2023-10-22] MEDS: GABAPENTIN 100 MG CAPSULE PO ×2 (09:33→11:32)
[2023-10-22] MEDS: LOSARTAN POTASSIUM 100 MG TABLET PO (09:34)
[2023-10-22] MEDS: INSULIN ASPART (*BKC) 100 UNITS/ML 9 UNITS SUB-Q (11:27)
[2023-10-22 11:28] LABS: Glucose Point of Care 241 mg/dl (65-105)
[2023-10-22] MEDS: risperiDONE 0.5 MG TABLET PO (11:32)
[2023-10-22] MEDS: MICONAZOLE NITRATE 2% CREAM 30 GM TUBE 1 APPLIC TOPICAL (11:33)
--- NOTE | 2023-10-22 11:33 | PM.PNCARD ---
Progress Note: A&P Assessment and Plan (1) Acute on chronic respiratory failure with hypoxia and hypercapnia: Code(s): J96.21 - Acute and chronic respiratory failure with hypoxia; J96.22 - Acute and chronic respiratory failure with hypercapnia Status: Acute Assessment and Plan: Acute on chronic respiratory failure requiring BiPAP. History of sleep apnea, possibly noncompliant. Possible pneumonia. Now off BiPAP. Looks like he has chronic hypercapnea. Encourage patient to use his CPAP regularly when discharge. (2) Acute on chronic combined systolic (congestive) and diastolic (congestive) heart failure: Code(s): I50.43 - Acute on chronic combined systolic (congestive) and diastolic (congestive) heart failure Status: Acute Assessment and Plan: Mild acute on chronic systolic and diastolic heart failure. History of cardiomyopathy EF 40-45%. Not very volume overloaded. Encourage compliance with meds. --increased losartan --added spironolactone --DC potassium --BMP in 2 weeks (3) Paroxysmal atrial fibrillation: Code(s): I48.0 - Paroxysmal atrial fibrillation Status: Acute Assessment and Plan: History of paroxysmal atrial fibrillation-flutter. Appears to be at in AFib/flutter with occasional RVR on admission. Was taking Cardizem po for rate control on admission, but with LV dysfunction I changed him to metoprolol. Heart rate is now well controlled. --continue metoprolol 50 mg b.i.d. --continue Xarelto (4) Elevated troponin: Code(s): R79.89 - Other specified abnormal findings of blood chemistry Status: Acute Assessment and Plan: Mildly elevated troponins noted on admission, no history of chest pain elicited, no ischemic EKG changes. I suspect this is related to the patient's hypertension, hypercapnia, CHF and tachycardia. Doubt any ACS event. --no further evaluation needed. (5) Pacemaker: Code(s): Z95.0 - Presence of cardiac pacemaker Status: Acute Assessment and Plan: Apparently the pacemaker is checked at the half-way periodically. (6) Hypertension: Code(s): I10 - Essential (primary) hypertension Status: Acute Assessment and Plan: Systolic BP running 150-180 initially, now improving. --continue increased dose of losartan and metoprolol. (7) Coronary artery disease: Code(s): I25.10 - Atherosclerotic heart disease of [place] coronary artery without angina pectoris Status: Acute Assessment and Plan: Carries a history of CAD. --continue Xarelto --increased atorvastatin from 10 mg daily to 40 mg daily per guidelines Plan OK for discharge from my point of view. Subjective Date/time seen: 10/22/23 11:33 Interval history: Follow-up for elevated troponins, acute on chronic diastolic CHF, cardiomyopathy (EF 40-45% in 2021). Mr. Morley has a history of hypercapnic respiratory failure, COPD, atrial flutter, pneumonia, CHF, morbid obesity, dual-chamber pacemaker, cardiomyopathy with EF 40-45% in 2021, diabetic neuropathy, and sleep apnea.? It is unclear who follows his pacemaker.? He is said to have CAD and status post stent in EMR history.? He lives at [facility]. 10/20/2023: I felt the mild troponin elevation was due to severe hypertension, hypercapnia, CHF and tachycardia, doubt any ACS event. Increase losartan at spironolactone for CHF, continue furosemide 40 mg IV push. Patient's AFib flutter was at RVR sometimes, changed to IV metoprolol. Date of service 10/21/2023: Off BiPAP, eating lunch w/ gusto. No complaints, feels better. Diuresed 1100 cc's. Increase losartan for hypertension, started metoprolol, increased atorvastatin, added spironolactone, changed furosemide to p.o.. Date of service 10/22/2023: Patient feels better and is eager for discharge. Blood pressure improving. Diuresed 1400 cc yesterday. Review of Systems Review of Systems: Denies
--- NOTE | 2023-10-22 12:02 | PM.DS ---
DS: Admitting Diagnosis Discharge Date 10/22/2023 Admitting Diagnosis acute hypercapnic respiratory failure, pneumonia involving right lung, acute on chronic combined systolic and diastolic heart failure, atrial flutter, diabetes mellitus, COPD DS: Discharge Diagnosis Discharge Diagnosis (1) Acute hypercapnic respiratory failure: Code(s): J96.02 - Acute respiratory failure with hypercapnia Status: Acute (2) Pneumonia involving right lung: Code(s): J18.9 - Pneumonia, unspecified organism Status: Acute (3) Acute on chronic combined systolic (congestive) and diastolic (congestive) heart failure: Code(s): I50.43 - Acute on chronic combined systolic (congestive) and diastolic (congestive) heart failure Status: Acute (4) Atrial flutter: Code(s): I48.92 - Unspecified atrial flutter Status: Acute (5) Diabetes mellitus: Code(s): E11.9 - Type 2 diabetes mellitus without complications Status: Acute (6) Chronic obstructive pulmonary disease: Code(s): J44.9 - Chronic obstructive pulmonary disease, unspecified Status: Acute DS: Summary Hospital Course Reason for hospitalization: respiratory distress Hospital Course: This is a 62-year-old male patient admitted to the hospital for respiratory distress. He was placed on BiPAP and given diuresis which helped his work of breathing. Cardiology saw patient due to elevated troponin but they did not recommend further workup believing that this was related to congestive heart failure and respiratory distress. Changes were made to rate control medications diltiazem was stopped and metoprolol used in its place. Patient has been on 3 L nasal cannula for greater than 24 hours without return of respiratory distress. He denies any chest pain nausea vomiting constipation diarrhea fever chills. Patient is very insistent on returning home. This morning he did try to refuse his Lasix and it is reported that he likely was not compliant with his BiPAP prior to admission. Patient instructed on compliance with BiPAP and prescribed medications to which he agreed he would maintain compliance. We contacted [facility] and spoke to patient's nurse who stated he could return. Patient did have a negative COVID test 2 days ago. Since patient is in retirement care rather than SNF, we proceeded with transfer back to facility today rather than waiting for Case Management to handle this tomorrow. Status at Discharge Cognitive/behavioral status at discharge: TBI history-patient awake, noncompliant at times. Overall status at discharge: patient is progressing back to baseline Time Spent with Patient Time attestation: Total time spent providing and/or coordinating discharge services: 40 minutes Time spent: Greater than 30 minutes Exam Narrative: APPEARANCE:? Resting comfortably, supplemental oxygen by nasal cannula HEAD: normocephalic, atraumatic. EYES: PERRLA/EOMI, conjunctivae clear. NOSE: Normal no drainage THROAT: Pharynx clear, no exudate. NECK: Supple. No adenopathy, no masses. RESPIRATORY:? Air entry decreased, few rales at the bases. CARDIOVASCULAR: Regular rate and rhythm without murmurs rubs or gallops. ABDOMINAL: Soft, nontender, nondistended, normal bowel sounds MUSCULOSKELETAL: Moves all extremities. Strength/ROM intact, No edema, No calf tenderness. NEURO: Alert. Cranial nerves II through XII intact.? Grossly intact SKIN: Warm, dry. Normal Color DS: Data Data Completed and Pending Completed studies during hospitalization: chest x-ray x2 Labs on day of discharge: Labs from last 24 hours 10/22/23 10/22/23 10/22/23 11:26 08:25 04:17 WBC 8.0 RBC 3.81 L Hgb 10.8 L Hct 38.4 L MCV 100.8 H MCH 28.3 MCHC 28.1 L RDW 13.7 Plt Count 168 MPV 10.0 Immature Gran % (Auto) 0.3 Neut % (Auto) 67.0 Lymph % (Auto) 16.8 L [place] % (Auto) 11.8 H Eos % (Auto) 4.0 Baso % (Auto)
--- NOTE | 2023-10-22 15:07 | PC.NURSE ---
discharge report given to ayaz at [facility]- prescription given for tramadol ; [facility] here-discharged
== END 2023-10-22 15:09 | DRG 139 ==
LOC: ANHED 04:31 → ANHIMU 07:30
PROVIDERS: Internal Medicine; Admitting Provider Internal Medicine; Emergency Provider Emergency Medicine; PCP Pediatrics Neonatal-Perinatal Medicine; Visit Provider Nurse Practitioner
DX: J18.9 Pneumonia, unspecified organism (principal); J96.21 Acute and chronic respiratory failure with hypoxia; J96.22 Acute and chronic respiratory failure with hypercapnia; I50.43 Acute on chronic combined systolic (congestive) and diastolic (congestive) heart failure; J44.0 Chronic obstructive pulmonary disease with (acute) lower respiratory infection; I48.92 Unspecified atrial flutter; I11.0 Hypertensive heart disease with heart failure; I25.10 Atherosclerotic heart disease of native coronary artery without angina pectoris; I42.9 Cardiomyopathy, unspecified; I27.20 Pulmonary hypertension, unspecified; E11.40 Type 2 diabetes mellitus with diabetic neuropathy, unspecified; E66.01 Morbid (severe) obesity due to excess calories; G47.33 Obstructive sleep apnea (adult) (pediatric); F41.1 Generalized anxiety disorder; F17.210 Nicotine dependence, cigarettes, uncomplicated; F31.9 Bipolar disorder, unspecified; Z20.822 Contact with and (suspected) exposure to COVID-19; Z79.01 Long term (current) use of anticoagulants; Z79.4 Long term (current) use of insulin; Z79.82 Long term (current) use of aspirin; Z86.73 Personal history of transient ischemic attack (TIA), and cerebral infarction without residual deficits; Z86.718 Personal history of other venous thrombosis and embolism; Z87.820 Personal history of traumatic brain injury; Z95.0 Presence of cardiac pacemaker; Z95.5 Presence of coronary angioplasty implant and graft; Z68.42 Body mass index [BMI] 45.0-49.9, adult; Z91.199 Patient's noncompliance with other medical treatment and regimen due to unspecified reason
CPT/HCPCS: 36415; 36600; 71045; 80053; 82375; 82805; 82948; 83050; 83735; 83880; 84484; 85025; 87040; 87637; 87641; 93005; 94002; 94003; 94640; 96365; 96366; 96374; 96375; 96376; 99285; A9270; G0378; G0379; J0696; J1815; J1940; J2060

== ENCOUNTER 2024-07-23 13:05 | Outpatient (CLI) | payer OTHER, SELFPAY ==
--- NOTE | ~2024-07-23 | CT_ITS ---
EXAMINATION: CT diagnostic chest wo con DATE: 07/23/2024 13:31 INDICATION: SOB TECHNIQUE: Computed tomography (CT) of the chest was performed with 100 mL Omnipaque-350 intravenous contrast. Automated exposure control and iterative reconstruction technique were employed. The dose-l ength product was 870.40 mGy-cm. COMPARISON: 12/17/2021; [facility] 12/30/2021. FINDINGS: CHEST: Thoracic aorta: No significant dilation. Mild aortic calcification. Lung parenchyma and airways: Motion artifact in the lungs. Patent airways. 13 mm left lower lobe pulm onary nodule, medial and inferior lingula (axial image 71). Scattered reticulonodular and centrilobul ar nodular opacities in the left lung. Thoracic inlet, axillae and chest wall: Left chest pacer with intact leads, terminating in expected p osition. No thyroid mass. Bilateral gynecomastia. No axillary lymphadenopathy. Mediastinum: No mass or lymphadenopathy. Dilated central pulmonary arteries as can be seen with pulmo nary arterial hypertension. Heart and pericardium: Mild cardiomegaly. Aortic valve and mitral calcification. No pericardial effus ion. Coronary artery calcifications: Heavy. Pleura: Extensive calcified pleural plaque in the right hemithorax. Upper abdomen: No significant finding. Thoracic bones: No acute osseous finding in the chest. IMPRESSION: New 13 mm pulmonary nodule in the medial lingula. Consider CT follow-up at 3 months, PET/CT, or tissu e sampling. Scattered pulmonary opacities in the left lung may represent atypical infection in the appropriate cl inical context. Asbestos related pleural disease. Reviewed, dictated and finalized at location [facility]. IMPRESSION: New 13 mm pulmonary nodule in the medial lingula. Consider CT follow-up at 3 mo nths, PET/CT, or tissue sampling. Scattered pulmonary opacities in the left lung may represent atypical infection in the appropriate clinical context. Asbestos related pleural disease.
== END 2024-07-23 13:06 | disposition home or self-care (01) ==
LOC: ANHIMG 13:06
PROVIDERS: PCP Pediatrics Neonatal-Perinatal Medicine
DX: R06.02 Shortness of breath (principal); R91.1 Solitary pulmonary nodule; R91.8 Other nonspecific abnormal finding of lung field; J61 Pneumoconiosis due to asbestos and other mineral fibers
CPT/HCPCS: 71250

== ENCOUNTER 2024-10-07 22:29 | Inpatient (IN) | payer OTHER, SELFPAY ==
--- NOTE | ~2024-10-07 | CT_ITS ---
EXAMINATION:CT diagnostic chest wo con DATE: 10/10/2024 10:43 INDICATION: Nodule in lingula. TECHNIQUE: Computed tomography (CT) of the chest was performed without intravenous contrast. Automate d exposure control and iterative reconstruction technique were employed. The dose-length product (DLP ) was 795.45 mGy-cm. COMPARISON: Chest CT 07/23/2024 FINDINGS: There is mild emphysema. There are calcified pleural plaques on the right. A calcified righ t lung nodule and calcified right hilar lymph nodes are consistent with old granulomatous disease. Th ere is mild atelectasis in left lower lobe and lingula. No pleural effusion. Cardiomegaly is noted. T here are coronary artery calcifications. No pericardial effusion. There is a left chest wall pacer wi th leads in the right atrium and right ventricle. There are old healed bilateral rib fractures. There is moderate thoracic spondylosis. IMPRESSION: 1. Interval resolution of left-sided pneumonia including the lingular nodule. 2. Mild emphysema. Reviewed, dictated and finalized at location A. P BURNER
--- NOTE | ~2024-10-07 | XR_ITS ---
EXAMINATION: XR chest 2V Exam Date/Time: 10/07/2024 22:15 [employer] HISTORY: sob Comparison: 10/21/2023; CT chest 07/23/2024. RESULT: Lines, tubes, and devices: Left chest pacer with intact leads. Lungs and pleura: Moderate diffuse interstitial opacities. Left lateral costophrenic angle blunting secondary to a prominent pericardial fat pad. Right pleural thickening and calcification. Cardiomediastinal silhouette: Stable. Other: No acute osseous or upper abdominal finding. IMPRESSION: Diffuse reticular opacities likely representing interstitial edema. Infection not excluded. Reviewed, dictated and finalized at location K. [employer] IMPRESSION: Diffuse reticular opacities likely representing interstitial edema. Infection n ot excluded.
--- NOTE | ~2024-10-07 | XR_ITS ---
EXAMINATION: XR chest 1V portable DATE: 10/10/2024 06:15 INDICATION: COPD TECHNIQUE: frontal view of the chest was obtained. COMPARISON: Chest radiograph dated 10/07/2024 FINDINGS: Extensive calcified pleural plaques at the periphery of the right mid to lower lung which given the s ymmetry likely represents sequela of chronic exudative effusion. Scarring at the right lung base with unchanged blunting at the right costophrenic angle. Increased opacity at the lateral left mid to low er lung zone likely related to a prominent left paracardial fat pad along side the enlarged heart whi ch is accentuated by leftward rotation of the patient. Leftward shift of the mediastinal shadow at th e upper lung zones also resulting from the rotation of the patient. No new airspace opacities, pulmon bran edema, pneumothorax or definitive pleural effusion. Dual lead pacemaker/AICD seen with leads proj ecting over the expected locations of the right atrium and right ventricle. IMPRESSION: 1. Stable appearance of pleural parenchymal scarring at the right lung base with extensive unilateral calcified pleural plaques in the right mid and lower lung zone likely sequela of chronic exudative e ffusion. 2. No definitive acute cardiopulmonary disease. Assessment is limited in the left mid and lower lung by cardiomegaly with prominent left paracardial fat pad accentuated by leftward rotation of the patie nt and could not exclude superimposed atelectasis or pneumonia. Reviewed, dictated and finalized at location A. [employer] ACCOUNT EXECUTIVE IMPRESSION: 1. Stable appearance of pleural parenchymal scarring at the right lung base wit h extensive unilateral calcified pleural plaques in the right mid and lower rakel g zone likely sequela of chronic exudative effusion. 2. No definitive acute cardiopulmonary disease. Assessment is limited in the le ft mid and lower lung by cardiomegaly with prominent left paracardial fat pad a ccentuated by leftward rotation of the patient and could not exclude superimpos ed atelectasis or pneumonia.
[2024-10-07 21:37] VITALS: BP 154/49; PULSE 69; RESP 14; TEMP 36.6; O2SAT 100
--- NOTE | 2024-10-07 21:47 | ECG_ITS ---
Test Date: 2024-10-07 21:56:48 Measurements Intervals [place] Rate: 63 P: 161 MO: 243 QRS: -58 QRSD: 150 T: 27 QT: 393 QTc: 403 Interpretive Statements ELECTRONIC ATRIAL PACEMAKER INTRAVENTRICULAR CONDUCTION DELAY [130+ ms QRS DURATION] No previous ECG available for comparison Electronically Signed On 10-08-2024 11:51:24 HALVER MACHINE OPERATOR by Geremias Marsh
--- NOTE | 2024-10-07 21:48 | PC.NURSE ---
Pt refused labs at this time stating Im not letting you guys stick me with any needles.
[2024-10-07 22:31] VITALS: RESP 19; O2SAT 98
[2024-10-07 23:30] LABS: Basophils Percent Auto 0.2 % (0.2-1.2); Eosinophils Absolute Auto 0.4 K/mm3 (0-0.3); Eosinophils Percent Auto 4.4 % (0-4.4); Immature Granulocyte Absolute 0.03 K/mm3 (0.00-0.031); Immature Granulocyte Percent A 0.4 % (0-0.5); Lymphocytes Absolute Auto 1.14 K/mm3 (0.9-3.2); Lymphocytes Percent Auto 13.9 % (18.3-44.2); Mean Corpuscular HGB Conc 29.4 g/dl (32-36); Mean Corpuscular Hemoglobin 30.6 pg (26-34); Mean Platelet Volume 9.8 fl (7.4-10.4); Monocytes Percent Auto 11.7 % (2.6-8.5); Neutrophils Absolute Auto 5.7 K/mm3 (1.3-6.7); Neutrophils Percent Auto 69.4 % (45.5-73.1); Platelet Count Result 150 k/mm3 (150-375); Red Blood Count 3.27 M/mm3 (4.6-6.20); Red Cell Distribution Width 13.6 % (11.5-14.5); White Blood Count 8.2 K/mm3 (4.5-10.0)
[2024-10-07 23:32] VITALS: BP 126/69; PULSE 65; RESP 23; O2SAT 95
--- NOTE | 2024-10-07 23:41 | ED.RECABL ---
HPI - Recheck/Abnormal Lab/Rx General Chief Complaint: Recheck/Abnormal Lab/Rx Stated Complaint: abnormal labs Time Seen by Provider: 10/07/24 23:16 Source: patient and RN notes reviewed Limitations: other (difficult to understand when he speaks at times but otherwise not confused ) History of Present Illness HPI narrative: Patient presents with report of abnormal labs. [facility] It was reported that he is short of breath had an abnormal CO2 result. At baseline he is on 4 L continuous O2. EMS report that on their arrival he was 94-96% but had been short of breath so they increased him to 6 L with resultant SpO2 of 97%. He was then down titrated to 4 L and was maintaining 100%. He had no complaints at triage. Patient does endorse that he is short of breath but denies any chest pain, cough, fever, or chills. Related Data Home Medications ?Medication ?Instructions ?Recorded ?Confirmed ?Last Taken ?Type aspirin 81 mg tablet 81 mg PO DAILY 11/26/20 10/08/24 Unknown History albuterol sulfate 90 mcg/actuation 2 puff inhalation Q4H 12/15/21 10/08/24 Unknown History aerosol inhaler buspirone 10 mg tablet 10 mg PO TID 12/15/21 10/08/24 Unknown History polyethylene glycol 3350 17 17 g PO DAILY PRN Constipation 12/15/21 10/08/24 Unknown History gram/dose oral powder sennosides 8.6 mg-docusate sodium 1 tablet PO BID PRN Constipation 12/15/21 10/08/24 Unknown History 50 mg tablet (Senexon-S) tamsulosin 0.4 mg capsule 0.4 mg PO DAILY 12/15/21 10/08/24 Unknown History multivitamin (Daily-Isidro tablet) 1 tablet PO DAILY 12/16/21 10/08/24 Unknown History albuterol sulfate 2.5 mg/3 mL 2.5 mg inhalation Q4-6H PRN Dyspnea 02/22/22 10/08/24 Unknown History (0.083 %) solution for nebulization Anoro Ellipta 1 puff inhalation DAILY 02/08/23 10/08/24 Unknown History ketoconazole 2 % shampoo 4 applic topical DAILY 02/08/23 10/08/24 Unknown History gabapentin 100 mg capsule 200 mg PO 0800,1200 07/31/23 10/08/24 Unknown History gabapentin 400 mg capsule 400 mg PO QHS 07/31/23 10/08/24 Unknown History insulin glargine 100 unit/mL 28 unit subcut QHS 07/31/23 10/08/24 Unknown History subcutaneous solution (Lantus U-100 Insulin) insulin lispro 100 unit/mL 9 unit subcut USEASDIRECTD 07/31/23 10/08/24 Unknown History subcutaneous pen rivaroxaban 20 mg tablet (Xarelto) 20 mg PO QAM 07/31/23 10/08/24 Unknown History cholecalciferol (vitamin D3) 125 125 mcg PO DAILY 10/20/23 10/08/24 Unknown History mcg (5,000 unit) tablet (Vitamin D3) trazodone 50 mg tablet 25 mg PO HS 10/20/23 10/08/24 Unknown History risperidone 0.5 mg tablet 0.5 mg PO .0800/1200 11/22/23 10/08/24 Unknown History amantadine HCl 100 mg capsule 100 mg PO DAILY 10/08/24 10/08/24 Unknown History dulaglutide 0.75 mg/0.5 mL 0.75 mg subcut WEEKLY 10/08/24 10/08/24 Unknown History subcutaneous pen injector (Trulicity) famotidine 20 mg tablet 20 mg PO DAILY 10/08/24 10/08/24 Unknown History insulin glargine-yfgn 100 unit/mL 5 unit subcut DAILY 10/08/24 10/08/24 Unknown History subcutaneous solution insulin glargine-yfgn 100 unit/mL 38 unit subcut QPM 10/08/24 10/08/24 Unknown History subcutaneous solution insulin lispro 100 unit/mL 5 unit subcut DAILY 10/08/24 10/08/24 Unknown History subcutaneous solution insulin lispro 100 unit/mL 11 unit subcut .lunch and supper 10/08/24 10/08/24 Unknown History subcutaneous solution ipratropium 0.5 mg-albuterol 3 mg 3 ml inhalation Q6H PRN shortness 10/08/24 10/08/24 Unknown History (2.5 mg base)/3 mL nebulization of breath or wheezing soln ketoconazole 2 % topical cream 1 applic topical BID 10/08/24 10/08/24 Unknown History losartan 100 mg tablet 100 mg PO DAILY 10/08/24 10/08/24 Unknown History Allergies Allergy/AdvReac Type Severity Reaction Status Date / Time acetaminophen Allergy Unknown Unknown Verified 10/07/24 22:33 [facility] Past Medical History Medical History Bipolar disorder Cerebrovascular accident Chronic anticoagulation Chronic obstructive pulmonary disease Chronic respiratory failure with hypoxia and hypercapnia Combined systolic and diastolic congestive heart failure Echocardiogram on 12/16/2021 showed a mildly enlarged LV chamber, [id number] reduced left ventricular systolic function with an EF estimated 40 to 45%, and abnormal diastolic function. Coronary artery disease Deep venous thrombosis Depression Diabetic neuropathy Generalized anxiety disorder History of trauma Traumatic brain injury years ago after a fall. Hypertension Insulin dependent diabetes mellitus Mild pulmonary hypertension Estimated pulmonary arterial systolic pressure was 40 mmHg on echocardiogram in November 2021. Obstructive sleep apnea Noncompliant with BiPAP. On 2 L nasal cannula at nighttime. Pacemaker Paroxysmal atrial fibrillation Paroxysmal atrial flutter Transient ischemic attack Surgical History Surgical History History of coronary artery stent placement History of open reduction and internal fixation (ORIF) procedure Repair of right lower extremity and left shoulder fractures. History of pacemaker History of tracheostomy Family History Family History Other Cancer Social History Social History Social History: Resident at [facility]. He is and has 1 child. On disability since his traumatic brain injury. He smoked up to 2 packs of cigarettes a day but is now down to about a pack a day. He has smoked for at least 30+ years. No alcohol or illicit substance abuse. Healthcare power of assistant city attorney: Simone Morley. Code status: Full code. Smoking packs per day: 1 Smoking cigarettes per day: 20.0 Years smoked: 30 Smoking pack-years: 30.00 Smoking status: Former smoker Second hand tobacco smoke exposure: No Alcohol intake: unknown Substance use: unknown Spiritual care concerns: No Exam Narrative: GENERAL: well-nourished, and in no acute distress. HEAD: Normocephalic, atraumatic. EYES: Non injected, non icteric ENT: Nares clear, no rhinorrhea or epistaxis. NECK: Supple. CHEST: Speaking in 5-6 word sentences. accessory muscle usage. Very poor air movement throughout. HEART: Regular rate and rhythm. . ABDOMEN: Protuberant but Soft, nondistended. engages his abdominal muscles which move when he speaks. EXTREMITIES: Normal range of motion. edema 1+ on the left and trace on the right. SKIN: Warm, dry, no rash. NEURO: No focal deficits. Alert and oriented x4. PSYCH: Normal mood and affect. Course Vital Signs Vital signs: Vital Signs Temperature 97.8 F 10/07/24 21:37 Pulse Rate 69 10/07/24 21:37 Respiratory Rate 14 10/07/24 21:37 Blood Pressure 154/49 H 10/07/24 21:37 Pulse Oximetry 100 10/07/24 21:37 Oxygen Delivery Nasal Cannula 10/07/24 21:37 Oxygen Flow Rate 4 10/07/24 21:37 Temperature 98.2 F 10/09/24 08:00 Pulse Rate 69 10/09/24 09:13 Respiratory Rate 20 10/09/24 09:13 Blood Pressure 158/68 H 10/09/24 08:00 Pulse Oximetry 91 10/09/24 09:02 Oxygen Delivery Nasal Cannula 10/09/24 09:02 Oxygen Flow Rate 3 10/09/24 09:02 Fraction of Inspired Oxygen 40 10/08/24 12:00 MDM - Recheck/Abnormal Lab/Rx MDM Narrative Medical decision making narrative: Patient presents with shortness of breath. At baseline he is reported to be on 4 L continuous O2 for a diagnosis of COPD. In the emergency department he is afebrile with acceptable vital signs. Dimer elevated; he does have slightly asymmetric lower extremity edema but after reviewing facility documentation, I see that he is already being treated for a DVT with Xarelto thus will defer obtaining CT PE study (given already treated and presumably not responsible for his own meds so not missing doses). Stable macrocytic anemia. Chest x-ray is concerning for interstitial edema. Infection cannot be excluded but in the absence of a fever, cough, or leukocytosis, will defer prescribing antibiotics at this time. Patient is retaining on his ABG, Has been worse at times but has also shown improvement previously; BiPAP will be initiated. Hyperglycemic. BAP-65 Score for Acute Exacerbation of COPD (predicts mortality in acute COPD exacerbation) BUN >/=25 mg/dL (No 0, Yes +1): 1 AMS (No 0, Yes +1): ? Pulse >/=109 beats/min (No 0, Yes +1): 0 Age, years: 41-64 Result: Class III BAP 1. Consider early non-invasive ventilation (done). 2.2% in-hospital mortality. 1.2% requiring intubation within 48 hours Treating as COPD exacerbation and hyperkalemia. Patient is adamant that he does not be admitted. Informs that we would reassess after a trial of BiPAP and hyperkalemia treatment. Patient found approximately 4:30 a.m. having this removed the BiPAP mask and desaturating to the 50s with no oxygen on. Nasal cannula is applied it is base rate and a repeat ABG obtained which shows worsening. === Hospice Pulmonary Disease Given patient's COPD, recommend continuing conversation of goals of care to establish values and wishes as discuss further treatments and interventions. Of note, Medicare guidelines for hospice eligibility for patients with severe chronic lung disease are as follows: Patient will be considered to be in the terminal stage (life expectancy of 6 months or less) if they meet ALL of the following criteria: 1. Patient has all of the following: Difficulty breathing at rest, little or no response to bronchodilators, decreased functional capacity (example bed to chair existence, fatigue and cough) AND 2. Progression of disease evidenced by a recent history of increasing office, home, or ED visits and/or hospitalizations for pulmonary infection and/or respiratory failure. 3. Documentation within the past 3 months of hypoxemia at rest on room air (pO2 <55mmHg by ABG) or oxygen saturation <88%, hypercapnia evidenced by pCO2 >50mmHg. Supporting documentation includes: Cor pulmonale and right heart failure, unintentional progressive weight loss. Given this, a palliative care or hospice consult might be appropriate. === Discussed this with patient though he states he is unfamiliar and has never heard of hospice. He states he is hungry. Will allow him to eat while his nasal cannula is in place and then agreed to be put back on BiPAP. Educated him on the role of palliative care and hospice in particular and that, if he decided to enroll in this insurance benefit, he could make the decision to treat his symptoms and elected to not come to the emergency department when he does not want to and instead focus on comfort. It does not seem the patient is able to make this decision yet but is willing to learn more information. At this time, his documentation does list him as full code with full treatment including CPR. Discussed with on-call attending hospitalist Dr Hayes. patient will be admitted to the IMU Differential Diagnosis Differential diagnosis: Likely other ( COPD exacerbation, CHF, pulmonary embolism, acute viral syndrome, pneumonia, pulmonary hypertension) Medical Records Attestation: I reviewed the patient's medical records. Medical records narrative: According to prior pulmonology notes, he is supposed be on CPAP has been noncompliant with this and has been intolerant when on bipap previously Lab Data Attestation: I reviewed the patient's lab results. 10/07/24 23:23 10/07/24 23:23 Labs: Lab Results 10/07/24 10/08/24 10/08/24 Range/Units 23:23 00:01 01:53 WBC 8.2 (4.5-10.0) K/mm3 RBC 3.27 L (4.6-6.20) M/mm3 Hgb 10.0 L (14.0-18.0) g/dL Hct 34.0 L (42.0-52.0) % MCV 104.0 H (80-100) fl MCH 30.6 (26-34) pg MCHC 29.4 L (32-36) g/dl RDW 13.6 (11.5-14.5) % Plt Count 150 (150-375) k/mm3 MPV 9.8 (7.4-10.4) fl Immature Gran % (Auto) 0.4 (0-0.5) % Neut % (Auto) 69.4 (45.5-73.1) % Lymph % (Auto) 13.9 L (18.3-44.2) % [place] % (Auto) 11.7 H (2.6-8.5) % Eos % (Auto) 4.4 (0-4.4) % Baso % (Auto) 0.2 (0.2-1.2) % Lymph # (Auto) 1.14 (0.9-3.2) K/mm3 [place] # (Auto) 1.0 H (0.1-0.6) K/mm3 Eos # (Auto) 0.4 H (0-0.3) K/mm3 Baso # (Auto) 0.0 (0.0-0.1) K/mm3 Abs Immat Gran (auto) 0.03 (0.00-0.031) K/mm3 Absolute Neuts (auto) 5.7 (1.3-6.7) K/mm3 Absolute Nucleated RBC 0.000 (0.0-0.012) K/mm3 Nucleated RBC % 0.0 (0.0-0.2) % Platelet Estimate Adequate (Adequate) Hypochromasia 1+ Anisocytosis 1+ Ovalocytes 1+ Schistocytes None seen D-Dimer 0.54 H (<0.48) ug/mL Expiratory Pressure CMH2O Inspiratory Pressure CMH2O Sodium 137 (137-145) mmol/L Potassium 5.4 H (3.4-5.0) mmol/L Chloride 96 L (98-107) mmol/L Carbon Dioxide > 40 H (22-30) mmol/L Anion Gap (4-12) mmol/L BUN 40 H D (9-20) mg/dL Creatinine 1.10 (0.7-1.3) mg/dL Estim Creat Clear Calc Not Reportable Estimated GFR > 60 (59 - ) Glucose 181 H (65-110) mg/dL POC Capillary Glucose 170 H (65-105) mg/dl Calcium 9.2 (8.4-10.2) mg/dL Magnesium 1.7 (1.6-2.3) mg/dL Total Bilirubin 0.4 (0.2-1.3) mg/dL AST 30 (17-59) U/L ALT 25 (6-50) U/L Alkaline Phosphatase 98 (38-126) U/L NT-Pro-B Natriuret Pep 153 H (19.9-100) pg/mL Total Protein 7.0 (6.3-8.2) g/dL Albumin 3.8 (3.5-5.1) g/dL Influenza A (RT-PCR) Negative (Negative) Influenza B (RT-PCR) Negative (Negative) RSV (RT-PCR) Negative (Negative) SARS-CoV-2 RNA (RT-PCR) Negative (Negative) 10/08/24 Range/Units 04:22 WBC (4.5-10.0) K/mm3 RBC (4.6-6.20) M/mm3 Hgb (14.0-18.0) g/dL Hct (42.0-52.0) % MCV (80-100) fl MCH (26-34) pg MCHC (32-36) g/dl RDW (11.5-14.5) % Plt Count (150-375) k/mm3 MPV (7.4-10.4) fl Immature Gran % (Auto) (0-0.5) % Neut % (Auto) (45.5-73.1) % Lymph % (Auto) (18.3-44.2) % [place] % (Auto) (2.6-8.5) % Eos % (Auto) (0-4.4) % Baso % (Auto) (0.2-1.2) % Lymph # (Auto) (0.9-3.2) K/mm3 [place] # (Auto) (0.1-0.6) K/mm3 Eos # (Auto) (0-0.3) K/mm3 Baso # (Auto) (0.0-0.1) K/mm3 Abs Immat Gran (auto) (0.00-0.031) K/mm3 Absolute Neuts (auto) (1.3-6.7) K/mm3 Absolute Nucleated RBC (0.0-0.012) K/mm3 Nucleated RBC % (0.0-0.2) % Platelet Estimate (Adequate) Hypochromasia Anisocytosis Ovalocytes Schistocytes D-Dimer (<0.48) ug/mL Expiratory Pressure 7 CMH2O Inspiratory Pressure 14 CMH2O Sodium (137-145) mmol/L Potassium (3.4-5.0) mmol/L Chloride (98-107) mmol/L Carbon Dioxide (22-30) mmol/L Anion Gap (4-12) mmol/L BUN (9-20) mg/dL Creatinine (0.7-1.3) mg/dL Estim Creat Clear Calc Estimated GFR (59 - ) Glucose (65-110) mg/dL POC Capillary Glucose (65-105) mg/dl Calcium (8.4-10.2) mg/dL Magnesium (1.6-2.3) mg/dL Total Bilirubin (0.2-1.3) mg/dL AST (17-59) U/L ALT (6-50) U/L Alkaline Phosphatase (38-126) U/L NT-Pro-B Natriuret Pep (19.9-100) pg/mL Total Protein (6.3-8.2) g/dL Albumin (3.5-5.1) g/dL Influenza A (RT-PCR) (Negative) Influenza B (RT-PCR) (Negative) RSV (RT-PCR) (Negative) SARS-CoV-2 RNA (RT-PCR) (Negative) ABG Data ABG results: 10/08/24 10/08/24 00:05 04:22 Puncture Site Right radial Right radial ABG pH 7.335 L 7.356 ABG pCO2 79.3 H* 83.4 H* ABG pO2 80.8 64.4 L ABG PO2/FiO2 Ratio 2.49 1.79 ABG HCO3 41.3 H 45.6 H ABG O2 Saturation 94.6 L 90.4 L ABG O2 Content 14.9 L 15.3 L ABG Base Excess 12.7 16.5 A-a Gradient 58.2 95.5 Oxyhemoglobin 95.2 91.3 Total Hemoglobin 11.1 L 11.9 L O2 Delivery Device Nasal cannula Non-invasive vent O2 Liters/Min 3.5 Not Reportable Vent Rate 16 FiO2 33 36 Attestation: I personally reviewed and interpreted this ABG as follows: Interpretation: chronic respiratory acidosis with secondary metabolic alkalosis Imaging Data Radiologist's impression: Diffuse reticular opacities likely representing interstitial edema. Infection not excluded. ECG Data EKG #1: Attestation: I personally reviewed and interpreted this ECG as follows: ECG completion date: 10/07/24 ECG completion time: 21:56 Interpretation: Electronic atrial pacemaker rate 63 beats per minute. OH interval 243. QRS 150. QT/ QTC 393/400. Intraventricular conduction delay. Poor R-wave progression across the precordial leads. Discharge Plan Discharge Clinical Impression: Hypercarbia, Anemia, macrocytic, Hyperglycemia due to diabetes mellitus, Hyperkalemia, Chronic respiratory acidosis Patient Disposition: Home, Self-Care Condition: Serious
[2024-10-07 23:44] LABS: Alanine Aminotransferase 25 U/L (6-50); Albumin Level 3.8 g/dL (3.5-5.1); Alkaline Phosphatase 98 U/L (38-126); Aspartate Amino Transferase 30 U/L (17-59); Bilirubin,Total 0.4 mg/dL (0.2-1.3); Blood Urea Nitrogen 40 mg/dL (9-20); Calcium 9.2 mg/dL (8.4-10.2); Carbon Dioxide > 40 mmol/L (22-30); Chloride 96 mmol/L (98-107); Estimated Glomerular Filt Rate > 60; Glucose 181 mg/dL (65-110); Sodium 137 mmol/L (137-145)
[2024-10-07 23:45] VITALS: PULSE 67; RESP 17
[2024-10-07 23:49] LABS: Hypochromasia 1+; Platelet Estimate Adequate (Adequate)
[2024-10-07 23:50] LABS: Anisocytosis 1+; Ovalocytes 1+; Schistocytes None Seen
[2024-10-07 23:55] LABS: Potassium 5.4 mmol/L (3.4-5.0)
[2024-10-08] VITALS (43 sets, daily range): BP systolic 104–189; BP diastolic 42–137; PULSE 60–88; RESP 12–31; TEMP 36.7–37.1; O2SAT 89–100; BMI 43.7
--- NOTE | 2024-10-08 | ECHO_ITS ---
Patient Info Name: Jp Morley Age: 63 years : 1960 Gender: Male Ht: 64 in Wt: 270 lbs BSA: 2.42 m2 HR: 68 bpm BP: 155 / 95 mmHg Technical Quality: Poor Exam Date: 10/08/2024 11:14 AM Exam Location: Echo Lab Patient Status: Inpatient Admit Date: 10/08/2024 Staff Ordering Physician: Erik Rowley MD Power System Engineer: Tamela Hair RDCS Attending Provider: Kamala Hayes MD Exam Type: CA echo dop color flow w con Study Info Indications I50.20 - Unspecified systolic (congestive) heart failure Complete two-dimensional, color flow and Doppler transthoracic echocardiogram is performed with contrast to opacify the left ventricle and to improve the deliniation of the left ventricle endocardial borders. Contrast/Agitated Saline Contrast/Ag. Saline: Definity Amount: 3.00 ml Existing IV Access: Yes IV Access Condition: patent with no signs of infiltration Reason for Poor Study: patient body habitus Summary 1. Technically difficult study with limited views. 2. Left ventricular chamber dimension is normal. 3. There is mildly increased left ventricular wall thickness. 4. Left ventricular systolic function is normal with an estimated ejection fraction of 55-60%. 5. LV not well visualized, cannot comment on wall motion as endocardial definition is limited. 6. Right ventricular chamber dimension is normal. 7. Right ventricular systolic function is normal. 8. Aortic valve is not well visualized. 9. Mitral valve is not well visualized. 10. The tricuspid valve is not well visualized. 11. Pulmonary valve is not well visualized. 12. The aortic root, ascending aorta are not well visualized. Left Ventricle Left ventricular chamber dimension is normal. There is mildly increased left ventricular wall thickness. Left ventricular systolic function is normal with an estimated ejection fraction of 55-60%. LV not well visualized, cannot comment on wall motion as endocardial definition is limited. Right Ventricle Right ventricular chamber dimension is normal. Right ventricular systolic function is normal. Left Atria Left atrial chamber dimension is normal. Right Atria Right atrial chamber dimension is normal. Atrial Septum Intact interatrial septum visualized by color flow imaging. Aortic Valve Aortic valve is not well visualized. There is no aortic valve regurgitation. Pulmonic Valve Pulmonary valve is not well visualized. Mitral Valve Mitral valve is not well visualized. There is no mitral valve regurgitation. Tricuspid Valve The tricuspid valve is not well visualized. There is mild tricuspid valve regurgitation. Inferior Vena Cava Inferior vena cava is not well visualized. Aorta The aortic root, ascending aorta are not well visualized. Left Ventricular Outflow Tract Name Value Normal LVOT 2D LVOT Diameter 2.03 cm LVOT Doppler LVOT Peak Gradient 4 mmHg LVOT Mean Gradient 2 mmHg LVOT VTI 24.39 cm LVOT VTI/AV VTI Ratio 0.64 LVOT Stroke Volume 79.29 ml LVOT CO 5.56 l/min LVOT CI 2.29 L/min/m2 Pulmonic Valve Name Value Normal PV Doppler PV Peak Gradient 6 mmHg Mitral Valve Name Value Normal MV Doppler MV Decel Coos 571.36 cm/s2 MV PHT 0 s MV Area (PHT) 4.33 cm2 4.00-5.00 MV Diastolic Function MV E Peak Velocity 100.15 cm/s MV A Peak Velocity 99.04 cm/s MV E/A 1.01 MV Decel Time 0 s Tricuspid Valve Name Value Normal TV Regurgitation Doppler TR Peak Velocity 160.03 cm/s TR Peak Gradient 10 mmHg Aorta Name Value Normal Ascending Aorta Ao Root Diameter (MM) 3.05 cm Ao Root Diam Index (MM) 1.26 cm/m2 Aortic Valve Name Value Normal AV Doppler AV Peak Velocity 199.00 cm/s AV Peak Gradient 13 mmHg AV Mean Gradient 9 mmHg AV VTI 38.14 cm AV Area (Cont Eq VTI) 2.08 cm2 >=3.00 AV Area (Cont Eq Elan) 1.99 cm2 AV Regurgitation 2D LVOT Area 3.25 cm2 Ventricles Name Value Normal LV Dimensions 2D/MM IVS Diastolic Thickness (2D) 1.06 cm 0.60-1.00 IVS Diastole Thickness (MM) 1.03 cm 0.60-1.00 LVID Diastole (2D) 5.46 cm 4.20-5.80 LVID Diastole (MM) 5.19 cm 4.20-5.80 LVIW Diastolic Thickness (2D) 1.18 cm 0.60-1.00 LVIW Diastolic Thickness (MM) 0.99 cm 0.60-1.00 LVID Systole (2D) 3.50 cm 2.50-4.00 LVID Systole (MM) 2.77 cm 2.50-4.00 LVOT Diameter 2.03 cm LV Mass (2D Cubed) 244.77 g 88.00-224.00 LV Mass Index (2D Cubed) 0.01 g/cm2 0.00-0.01 Relative Wall Thickness (2D) 0.43 LV Mass (MM Cubed) 196.51 g 88.00-224.00 LV Mass Index (MM Cubed) 0.01 g/cm2 0.00-0.01 Relative Wall Thickness (MM) 0.38 LV Fractional Shortening/Ejection Fraction 2D/MM LV Fractional Shortening (2D) 36 % 25-43 LV Fractional Shortening (MM) 47 % 25-43 LV EF (MM Teicholz) 78 % 52-72 LV EF (2D Teicholz) 65 % 52-72 LV Diastolic Volume (4C MOD) 102.87 ml LV EF (4C MOD) 69 % LV Diastolic Length (4C) 8.17 cm LV Systolic Length (4C) 6.33 cm LV Stroke Volume (4C MOD) 71.19 ml Atria Name Value Normal LA Dimensions LA Dimension (MM) 4.36 cm 3.00-4.10 LA Volume (4C A-L) 56.73 ml RA Dimensions RA Area (4C) 22.79 cm2 <=18.00 Report Signatures
[2024-10-08 00:09] LABS: D Dimer 0.54 ug/mL (<0.48)
[2024-10-08 00:16] LABS: Alveolar/Arterial O2 Gradient 58.2 mmHg; Base Excess ABG 12.7 mEq/l (+/-2.0); Fractional Inspired Oxygen 33 %; HCO3 ABG 41.3 mEq/l (22.0-26.0); Oxygen Content ABG 14.9 %vol (16.0-22.0); Oxygen Saturation ABG 94.6 % (95.0-100.0); Oxyhemoglobin 95.2 % THb (90.0-100.0); PO2 ABG 80.8 mmHg (80.0-100.0); PO2 FiO2 Ratio Arterial Blood 2.49 %; Total Hemoglobin 11.1 g/dL (12.0-18.0); pH ABG 7.335 (7.350-7.450)
[2024-10-08 00:19] LABS: PCO2 ABG 79.3 mmHg (35.0-45.0)
[2024-10-08 00:20] LABS: Device NASAL CANNULA; Liters per Minute 3.5 LPM; Modified Allen's Test Pass; Site Drawn RIGHT RADIAL
[2024-10-08 00:45] LABS: Influenza A QL RT-PCR Negative (Negative); Influenza B QL RT-PCR Negative (Negative); RSV RNA, RT-PCR Negative (Negative); SARS-CoV-2 RNA PCR Negative (Negative)
[2024-10-08] MEDS: methylPREDNISolone SOD SUCC 125 MG VIAL IV PUSH (00:47)
[2024-10-08] MEDS: MAGNESIUM SULF 1 GM/D5W 100 ML 1 GM/100 ML BAG IVPB (00:52)
[2024-10-08] MEDS: LORazepam INJ (*CRX) 2 MG/ML VIAL 1 MG IV PUSH (01:02)
[2024-10-08 01:10] LABS: Magnesium 1.7 mg/dL (1.6-2.3)
[2024-10-08] MEDS: IPRATROPIUM 0.5 MG/ALBUTEROL SULFATE 2.5 MG AMPUL.NEB 3 ML INHALATION ×3 (01:10→21:27)
[2024-10-08] MEDS: ALBUTEROL SULFATE NEB 2.5 MG/3 ML INH INHALATION (01:53)
[2024-10-08 01:56] LABS: Glucose Point of Care 170 mg/dl (65-105)
[2024-10-08] MEDS: CALCIUM GLUCONATE 1,000 MG/10 ML VIAL 1000 MG IV PUSH (02:20)
[2024-10-08] MEDS: SODIUM BICARBONATE 8.4% 50 MEQ/50 ML SYRINGE IV PUSH (02:20)
[2024-10-08] MEDS: INSULIN HUMAN REGULAR (*BKC) 100 UNITS/ML 10 UNITS IV PUSH (02:21)
[2024-10-08] MEDS: DEXTROSE 50% 25 GM/50 ML SYRINGE IV PUSH (02:28)
[2024-10-08 04:36] LABS: Alveolar/Arterial O2 Gradient 95.5 mmHg; Base Excess ABG 16.5 mEq/l (+/-2.0); Fractional Inspired Oxygen 36 %; HCO3 ABG 45.6 mEq/l (22.0-26.0); Oxygen Content ABG 15.3 %vol (16.0-22.0); Oxygen Saturation ABG 90.4 % (95.0-100.0); Oxyhemoglobin 91.3 % THb (90.0-100.0); PO2 ABG 64.4 mmHg (80.0-100.0); PO2 FiO2 Ratio Arterial Blood 1.79 %; Total Hemoglobin 11.9 g/dL (12.0-18.0); pH ABG 7.356 (7.350-7.450)
[2024-10-08 04:38] LABS: Device NON-INVASIVE VENT; Modified Allen's Test Pass; PCO2 ABG 83.4 mmHg (35.0-45.0); Site Drawn RIGHT RADIAL
[2024-10-08 04:39] LABS: Non-Invasive Expiratory Pressure 7 CMH2O; Non-Invasive Inspiratory Pressure 14 CMH2O; Non-Invasive Vent Rate 16 /MIN
--- NOTE | 2024-10-08 07:19 | ADMGEN ---
This patient, Jp Morley, was admitted to Intensive Care Unit-3. Patient/family oriented to hospital policies and general routines including ID bracelet, bed and alarms, visiting hours, pain management, procedures, bathroom and other care routines, personal items, smoking policy, room service/diet, and visiting hours. Information on how to activate the Rapid Response Team has been discussed. Patient/Family are encouraged to report perceived risks to care and to ask questions if they do not understand what they are told or what they should do. Report received from Mireille Fischer at 0549, patient arrived at 0633 on BiPaP.
--- NOTE | 2024-10-08 07:57 | P.HP_ITS ---
H&P: HPI History of Present Illness Date/Time: 10/08/24 07:57 Chief Complaint: Productive cough and shortness breath Narrative: 73 years old gentleman with history of COPD, hypertension, persistent AFib, status post pacemaker, chronic respiratory failure, combined EF 40-45% on echocardiogram December 16, 2021, CAD, DVT, heart failure, present ED with a chief complaint of productive cough and shortness breath. Patient has been having progressive shortness of breath in past 4 days. And patient is found worsening shortness breath today. Patient has cough with scant phlegm. Patient denies chest pain, fever, chills. Patient has no appetite, patient has worsening short of breath in the night. Patient denies abdomen pain nausea vomiting diarrhea. Patient was brought to ED from rehab for further evaluation and management. Upon arrival to ED, patient was found have tachypnea 30 per minutes, hypoxemia, respiratory distress, patient was placed on BiPAP in the ED. Labs showed anemia hemoglobin 10.0, on the baseline, hyperkalemia potassium 5.4, BUN creatinine ratio 40/1.10 glucose 181, ABG showed hypercapnic hypoxemic respiratory failure, pCO2 83.4, PO2 64.4, BNP at 153 Chest x-ray is concerning for interstitial edema. Infection cannot be excluded but in the absence of a fever, cough, or leukocytosis BiPAP was initiated. Review of Systems Review of Systems: ROS negative except above PMFSH Past Medical History Medical History Bipolar disorder Cerebrovascular accident Chronic anticoagulation Chronic obstructive pulmonary disease Chronic respiratory failure with hypoxia and hypercapnia Combined systolic and diastolic congestive heart failure Echocardiogram on 12/16/2021 showed a mildly enlarged LV chamber, [id number] reduced left ventricular systolic function with an EF estimated 40 to 45%, and abnormal diastolic function. Coronary artery disease Deep venous thrombosis Depression Diabetic neuropathy Generalized anxiety disorder History of trauma Traumatic brain injury years ago after a fall. Hypertension Insulin dependent diabetes mellitus Mild pulmonary hypertension Estimated pulmonary arterial systolic pressure was 40 mmHg on echocardiogram in November 2021. Obstructive sleep apnea Noncompliant with BiPAP. On 2 L nasal cannula at nighttime. Pacemaker Paroxysmal atrial fibrillation Paroxysmal atrial flutter Transient ischemic attack Surgical History Surgical History History of coronary artery stent placement History of open reduction and internal fixation (ORIF) procedure Repair of right lower extremity and left shoulder fractures. History of pacemaker History of tracheostomy Family History Family History Other Cancer Social History Social History Social History: Resident at [facility]. He is and has 1 child. On disability since his traumatic brain injury. He smoked up to 2 packs of cigarettes a day but is now down to about a pack a day. He has smoked for at least 30+ years. No alcohol or illicit substance abuse. Healthcare power of admitted attorneys: Simone Morley. Code status: Full code. Smoking packs per day: 1 Smoking cigarettes per day: 20.0 Years smoked: 30 Smoking pack-years: 30.00 Smoking status: Former smoker Second hand tobacco smoke exposure: No Alcohol intake: unknown Substance use: unknown Spiritual care concerns: No Meds Home Medications and Allergies Home Medications ?Medication ?Instructions ?Recorded ?Confirmed ?Type aspirin 81 mg tablet 81 mg PO DAILY 11/26/20 10/08/24 History albuterol sulfate 90 mcg/actuation 2 puff inhalation Q4H 12/15/21 10/08/24 History aerosol inhaler buspirone 10 mg tablet 10 mg PO TID 12/15/21 10/08/24 History polyethylene glycol 3350 17 17 g PO DAILY PRN Constipation 12/15/21 10/08/24 History gram/dose oral powder sennosides 8.6 mg-docusate sodium 1 tablet PO BID PRN Constipation 12/15/21 10/08/24 History 50 mg tablet (Senexon-S) tamsulosin 0.4 mg capsule 0.4 mg PO DAILY 12/15/21 10/08/24 History multivitamin (Daily-Isidro tablet) 1 tablet PO DAILY 12/16/21 10/08/24 History albuterol sulfate 2.5 mg/3 mL 2.5 mg inhalation Q4-6H PRN Dyspnea 02/22/22 10/08/24 History (0.083 %) solution for nebulization Anoro Ellipta 1 puff inhalation DAILY 02/08/23 10/08/24 History ketoconazole 2 % shampoo 4 applic topical DAILY 02/08/23 10/08/24 History gabapentin 100 mg capsule 200 mg PO 0800,1200 07/31/23 10/08/24 History gabapentin 400 mg capsule 400 mg PO QHS 07/31/23 10/08/24 History insulin glargine 100 unit/mL 28 unit subcut QHS 07/31/23 10/08/24 History subcutaneous solution (Lantus U-100 Insulin) insulin lispro 100 unit/mL 9 unit subcut USEASDIRECTD 07/31/23 10/08/24 History subcutaneous pen rivaroxaban 20 mg tablet (Xarelto) 20 mg PO QAM 07/31/23 10/08/24 History cholecalciferol (vitamin D3) 125 125 mcg PO DAILY 10/20/23 10/08/24 History mcg (5,000 unit) tablet (Vitamin D3) trazodone 50 mg tablet 25 mg PO HS 10/20/23 10/08/24 History atorvastatin 40 mg tablet 40 mg PO HS #0 tabs 10/22/23 10/08/24 Rx furosemide 40 mg tablet 40 mg PO DAILY #0 tabs 10/22/23 10/08/24 Rx metoprolol tartrate 50 mg tablet 50 mg PO Q12HR #0 tabs 10/22/23 10/08/24 Rx spironolactone 25 mg tablet 25 mg PO QAM #0 tabs 10/22/23 10/08/24 Rx tramadol 50 mg tablet 50 mg PO Q6H PRN Pain #10 tabs 10/22/23 10/08/24 Rx risperidone 0.5 mg tablet 0.5 mg PO .0800/1200 11/22/23 10/08/24 History amantadine HCl 100 mg capsule 100 mg PO DAILY 10/08/24 10/08/24 History dulaglutide 0.75 mg/0.5 mL 0.75 mg subcut WEEKLY 10/08/24 10/08/24 History subcutaneous pen injector (Trulicity) famotidine 20 mg tablet 20 mg PO DAILY 10/08/24 10/08/24 History insulin glargine-yfgn 100 unit/mL 5 unit subcut DAILY 10/08/24 10/08/24 History subcutaneous solution insulin glargine-yfgn 100 unit/mL 38 unit subcut QPM 10/08/24 10/08/24 History subcutaneous solution insulin lispro 100 unit/mL 5 unit subcut DAILY 10/08/24 10/08/24 History subcutaneous solution insulin lispro 100 unit/mL 11 unit subcut .lunch and supper 10/08/24 10/08/24 History subcutaneous solution ipratropium 0.5 mg-albuterol 3 mg 3 ml inhalation Q6H PRN shortness 10/08/24 10/08/24 History (2.5 mg base)/3 mL nebulization of breath or wheezing soln ketoconazole 2 % topical cream 1 applic topical BID 10/08/24 10/08/24 History losartan 100 mg tablet 100 mg PO DAILY 10/08/24 10/08/24 History Allergies Allergy/AdvReac Type Severity Reaction Status Date / Time acetaminophen Allergy Unknown Unknown Verified 10/07/24 22:33 Vital Signs Vital Signs - 24 hr 10/07/24 21:37 10/07/24 22:31 10/07/24 23:32 Temperature 97.8 F Pulse Rate 69 65 Respiratory Rate 14 19 23 H Blood Pressure 154/49 H 126/69 Pulse Oximetry 100 98 95 Oxygen Delivery Nasal Cannula Oxygen Flow Rate 4 4 10/07/24 23:45 10/08/24 00:00 10/08/24 00:15 Temperature Pulse Rate 67 65 65 Respiratory Rate 17 20 18 Blood Pressure Pulse Oximetry 94 96 Oxygen Delivery Oxygen Flow Rate 10/08/24 00:25 10/08/24 00:30 10/08/24 00:39 Temperature Pulse Rate 65 65 Respiratory Rate 23 H 20 Blood Pressure 145/82 H Pulse Oximetry 96 96 100 Oxygen Delivery BiPAP Oxygen Flow Rate 10/08/24 00:45 10/08/24 01:00 10/08/24 01:02 Temperature Pulse Rate 64 66 68 Respiratory Rate 16 19 21 H Blood Pressure 162/106 H Pulse Oximetry 91 Oxygen Delivery Oxygen Flow Rate 10/08/24 01:10 10/08/24 01:15 10/08/24 01:23 Temperature Pulse Rate 74 72 66 Respiratory Rate 28 H 21 H 14 Blood Pressure Pulse Oximetry 94 Oxygen Delivery Oxygen Flow Rate 10/08/24 01:47 10/08/24 01:53 10/08/24 02:30 Temperature Pulse Rate 65 67 78 Respiratory Rate 22 H 23 H 24 H Blood Pressure 122/42 L Pulse Oximetry 96 Oxygen Delivery Oxygen Flow Rate 10/08/24 02:32 10/08/24 02:45 10/08/24 03:00 Temperature Pulse Rate 74 68 67 Respiratory Rate 27 H 24 H 22 H Blood Pressure 149/51 H Pulse Oximetry 89 L 91 96 Oxygen Delivery Oxygen Flow Rate 10/08/24 03:00 10/08/24 03:07 10/08/24 03:15 Temperature Pulse Rate 67 67 Respiratory Rate 24 H 23 H 12 Blood Pressure 145/62 H Pulse Oximetry 90 92 Oxygen Delivery BiPAP Oxygen Flow Rate 10/08/24 03:30 10/08/24 03:32 10/08/24 03:45 Temperature Pulse Rate 67 65 67 Respiratory Rate 21 H 24 H 18 Blood Pressure 154/104 H Pulse Oximetry 93 92 93 Oxygen Delivery Oxygen Flow Rate 10/08/24 04:00 10/08/24 04:01 10/08/24 04:15 Temperature Pulse Rate 84 88 67 Respiratory Rate 29 H 31 H 26 H Blood Pressure 173/90 H Pulse Oximetry 99 Oxygen Delivery Oxygen Flow Rate 10/08/24 05:02 10/08/24 05:50 10/08/24 06:30 Temperature Pulse Rate 73 Respiratory Rate 26 H 19 30 H Blood Pressure Pulse Oximetry 98 Oxygen Delivery BiPAP BiPAP Oxygen Flow Rate 10/08/24 06:45 Temperature Pulse Rate 66 Respiratory Rate 16 Blood Pressure 155/95 H Pulse Oximetry 96 Oxygen Delivery Oxygen Flow Rate Exam Narrative: GENERAL: Pleasant, in no acute distress. Well-nourished. Morbid obesity - EYES: EOMI. Anicteric. - HENT: Moist mucous membranes. - LUNGS: Distant breath sounds, tachypn ea, coarse breath sound bilateral base - CARDIOVASCULAR: Regular rate and rhyth m. No murmur. No JVD. - ABDOMEN: Soft, non-tender and non-dist ended. No palpable masses. - EXTREMITIES: No edema. Peripheral puls es 2+. Non-tender. - NEUROLOGIC: No focal neurological defi cits. CN II-XII grossly intact. - PSYCHIATRIC: Awake, Alert and oriented x 3. Appropriate mood and affect. - SKIN: No rashes or lesions. Warm. - LYMPH: No cervical lymphadenopathy. H&P: Results Labs Labs: Short CBC 10/07/24 Range/Units 23:23 WBC 8.2 (4.5-10.0) K/mm3 Hgb 10.0 L (14.0-18.0) g/dL Hct 34.0 L (42.0-52.0) % Plt Count 150 (150-375) k/mm3 BMP 10/07/24 23:23 Sodium 137 Potassium 5.4 H Chloride 96 L Carbon Dioxide > 40 H BUN 40 H D Creatinine 1.10 Glucose 181 H Calcium 9.2 Liver Function 10/07/24 Range/Units 23:23 Total Bilirubin 0.4 (0.2-1.3) mg/dL AST 30 (17-59) U/L ALT 25 (6-50) U/L Alkaline Phosphatase 98 (38-126) U/L Albumin 3.8 (3.5-5.1) g/dL Assessment and Plan Assessment and plan (1) Acute on chronic respiratory failure with hypoxia and hypercapnia: Code(s): J96.21 - Acute and chronic respiratory failure with hypoxia; J96.22 - Acute and chronic respiratory failure with hypercapnia Status: Acute (2) Acute exacerbation of chronic obstructive pulmonary disease: Code(s): J44.1 - Chronic obstructive pulmonary disease with (acute) exacerbation Status: Acute (3) Pulmonary edema: Code(s): J81.1 - Chronic pulmonary edema Status: Acute (4) Paroxysmal atrial fibrillation: Code(s): I48.0 - Paroxysmal atrial fibrillation Status: Acute (5) History of DVT (deep vein thrombosis): Code(s): Z86.718 - Personal history of other venous thrombosis and embolism Status: Chronic (6) Insulin dependent diabetes mellitus: Status: Chronic (7) Combined systolic and diastolic congestive heart failure: Code(s): I50.40 - Unspecified combined systolic (congestive) and diastolic (congestive) heart failure Status: Acute (8) Coronary artery disease: Code(s): I25.10 - Atherosclerotic heart disease of [place] coronary artery without angina pectoris Status: Acute (9) Bipolar disorder: Code(s): F31.9 - Bipolar disorder, unspecified Status: Chronic Plan COPD exacerbation, Patient has history of COPD, patient has cough and worsening shortness of breath s Continue home medication Anoro Ellipta 1 puff daily, start DuoNeb scheduled q.6 hours, albuterol nebulizer q.4 hours p.r.n. Patient received methylprednisolone 125 mg in the ED, continue methylpred nisolone 60 mg q.6 hours IV Patient is on BiPAP will repeat ABG Continue O2 therapy to keep pulse ox above 92, patient has history of CAD Consult health inspector food for evaluation treatment Decompensated chronic combined heart failure Elevated BNP, x-ray shows pulmonary congestion, Will change Lasix 40 mg daily p.o. to 40 mg IV, continue spironolactone 25 mg daily p.o. Repeat echocardiogram acute on chronic respiratory failure with hypoxemia and hypercapnia Upon arrival in the ED, patient was found have respiratory failure with hypoxemia and hypercapnia Patient is placed on BiPAP Possible due to COPD exacerbation, obesity hypoventilation syndrome, decompensated heart failure Managements see above CAD, paroxysmal AFib Patient denies chest EKG shows a paced rhythm, heart rate 83, no specific ST or T-wave changes Continue home medication aspirin 81 mg daily p.o., Xarelto 20 mg daily p.o., Lipitor 40 mg daily p.o. Essential hypertension Continue losartan 100 mg daily p.o., metoprolol 50 mg b.i.d. p.o. Insulin-dependent diabetes Continue home medication glargine 38 units q.h.s., list prior insulin 5 unit a.c. Start insulin sliding scale a.c. and q.h.s. Chronic anemia Stable No obvious bleeding Follow iron panel ferritin level stool guaiac Psychiatric disorders Continue home medication risperidone, trazodone, BuSpar Stable Patient may stay more than 2 midnights in the hospital
[2024-10-08] MEDS: busPIRone HCL 10 MG TABLET PO ×3 (09:26→17:15)
[2024-10-08] MEDS: ASPIRIN 81 MG ENTERIC TABLET PO (09:26)
[2024-10-08] MEDS: methylPREDNISolone SOD SUCC 125 MG VIAL 60 MG IV PUSH ×3 (09:26→17:21)
[2024-10-08] MEDS: LOSARTAN POTASSIUM 100 MG TABLET PO (09:27)
[2024-10-08] MEDS: SPIRONOLACTONE 25 MG TABLET PO (09:27)
[2024-10-08] MEDS: FUROSEMIDE INJ 40 MG/4 ML VIAL IV PUSH (09:27)
[2024-10-08] MEDS: TAMSULOSIN HCL 0.4 MG CAPSULE PO (09:27)
[2024-10-08] MEDS: FAMOTIDINE 20 MG TABLET PO (09:27)
[2024-10-08] MEDS: METOPROLOL TARTRATE 50 MG TAB PO ×2 (09:27→20:09)
[2024-10-08 09:53] LABS: NT Pro B Type Natriuretic Pept 153 pg/mL (19.9-100)
[2024-10-08] MEDS: risperiDONE 0.5 MG TABLET PO ×2 (10:18→14:16)
[2024-10-08 11:40] LABS: Iron 55 ug/dL (49-181)
[2024-10-08] MEDS: PERFLUTREN LIPID MICROSPHERES 1.5 ML VIAL DILUTED TO 10 ML TOTAL VOLUME IV PUSH (11:40)
[2024-10-08 11:50] LABS: Percent Iron Saturation 13 % (20-50)
[2024-10-08 12:19] LABS: Glucose Point of Care 327 mg/dl (65-105)
[2024-10-08] MEDS: INSULIN ASPART (*BKC) 100 UNITS/ML 9 UNITS SUB-Q ×2 (12:29→17:21)
[2024-10-08] MEDS: RIVAROXABAN 20 MG TABLET PO (17:15)
[2024-10-08] MEDS: ATORVASTATIN 40 MG TABLET PO (20:09)
[2024-10-08] MEDS: traZODone HCL 25 MG TABLET PO (20:09)
[2024-10-08] MEDS: INSULIN GLARGINE (*BKC) 100 UNITS/ML 28 UNITS SUB-Q (22:02)
[2024-10-08 22:09] LABS: Glucose Point of Care 310 mg/dl (65-105)
--- NOTE | 2024-10-08 22:35 | PC.NURSE ---
The patient was transferred from ICU-3 to IMU-211 in stable condition. All belongings sent with patient. This RN will retain him for care.
[2024-10-09] VITALS (24 sets, daily range): BP systolic 125–158; BP diastolic 68–91; PULSE 61–95; RESP 18–24; TEMP 36.6–37.5; O2SAT 91–99
[2024-10-09] MEDS: methylPREDNISolone SOD SUCC 125 MG VIAL 60 MG IV PUSH ×3 (01:24→12:12)
[2024-10-09] MEDS: IPRATROPIUM 0.5 MG/ALBUTEROL SULFATE 2.5 MG AMPUL.NEB 3 ML INHALATION ×5 (03:12→20:46)
[2024-10-09] MEDS: ASPIRIN 81 MG ENTERIC TABLET PO (08:25)
[2024-10-09] MEDS: METOPROLOL TARTRATE 50 MG TAB PO ×2 (08:25→22:10)
[2024-10-09] MEDS: TAMSULOSIN HCL 0.4 MG CAPSULE PO (08:25)
[2024-10-09] MEDS: FUROSEMIDE INJ 40 MG/4 ML VIAL IV PUSH (08:25)
[2024-10-09] MEDS: FAMOTIDINE 20 MG TABLET PO (08:25)
[2024-10-09] MEDS: busPIRone HCL 10 MG TABLET PO ×3 (08:25→17:11)
[2024-10-09] MEDS: SPIRONOLACTONE 25 MG TABLET PO (08:25)
[2024-10-09] MEDS: LOSARTAN POTASSIUM 100 MG TABLET PO (08:25)
[2024-10-09] MEDS: risperiDONE 0.5 MG TABLET PO ×2 (08:31→12:14)
--- NOTE | 2024-10-09 08:41 | PM.IMPN ---
Progress Note: A&P Assessment and Plan (1) Acute on chronic respiratory failure with hypoxia and hypercapnia: Code(s): J96.21 - Acute and chronic respiratory failure with hypoxia; J96.22 - Acute and chronic respiratory failure with hypercapnia Status: Acute (2) Acute exacerbation of chronic obstructive pulmonary disease: Code(s): J44.1 - Chronic obstructive pulmonary disease with (acute) exacerbation Status: Acute (3) Pulmonary edema: Code(s): J81.1 - Chronic pulmonary edema Status: Acute (4) Paroxysmal atrial fibrillation: Code(s): I48.0 - Paroxysmal atrial fibrillation Status: Acute (5) History of DVT (deep vein thrombosis): Code(s): Z86.718 - Personal history of other venous thrombosis and embolism Status: Chronic (6) Insulin dependent diabetes mellitus: Status: Chronic (7) Combined systolic and diastolic congestive heart failure: Code(s): I50.40 - Unspecified combined systolic (congestive) and diastolic (congestive) heart failure Status: Acute (8) Coronary artery disease: Code(s): I25.10 - Atherosclerotic heart disease of [place] coronary artery without angina pectoris Status: Acute (9) Bipolar disorder: Code(s): F31.9 - Bipolar disorder, unspecified Status: Chronic Plan COPD exacerbation, Patient has history of COPD, patient has cough and worsening shortness of breaths Continue home medication Anoro Ellipta 1 puff daily, start DuoNeb scheduled q.6 hours, albuterol nebulizer q.4 hours p.r.n. Patient received methylprednisolone 125 mg in the ED, on methylprednisolone 60 mg q.6 hours IV Patient is on BiPAP prn will repeat ABG Continue O2 therapy to keep pulse ox above 92, patient has history of CAD Consult handicapped teacher for evaluation treatment Appreciate pulmonology consultation, follow-up CT chest, BiPAP in the night. Start azithromycin, decrease Solu-Medrol to 20 mg q.6 hours IV Decompensated chronic combined heart failure combined EF 40-45% on echocardiogram December 16, 2021 Elevated BNP, x-ray shows pulmonary congestion, Repeated echocardiogram 10/08 Left ventricular systolic function is normal with an estimated ejection fraction of 55-60%. LV not well visualized, cannot comment on wall motion as endocardial change Lasix 40 mg daily p.o. to 40 mg IV, continue spironolactone 25 mg daily p.o. acute on chronic respiratory failure with hypoxemia and hypercapnia Upon arrival in the ED, patient was found have respiratory failure with hypoxemia and hypercapnia Patient is placed on BiPAP Possible due to COPD exacerbation, obesity hypoventilation syndrome, decompensated heart failure Managements see above CAD, paroxysmal AFib Patient denies chest EKG shows a paced rhythm, heart rate 83, no specific ST or T-wave changes Continue home medication aspirin 81 mg daily p.o., Xarelto 20 mg daily p.o., Lipitor 40 mg daily p.o. Essential hypertension Continue losartan 100 mg daily p.o., metoprolol 50 mg b.i.d. p.o. Insulin-dependent diabetes Continue home medication glargine 38 units q.h.s., list prior insulin 5 unit a.c. Start insulin sliding scale a.c. and q.h.s. Chronic anemia Stable No obvious bleeding Follow iron panel ferritin level stool guaiac Psychiatric disorders Continue home medication risperidone, trazodone, BuSpar Stable Patient may stay more than 2 midnights in the hospital Subjective Date/time seen: 10/09/24 08:41 Interval history: I saw exam patient today patient feels dyspnea is improving, patient still has cough with phlegm. significant shortness breath with minor exertion. Exam Narrative: GENERAL: Pleasant, in no acute distress. Well-nourished. Morbid obesity - EYES: EOMI. Anicteric. - HENT: Moist mucous membranes. - LUNGS: Distant breath sounds, tachypnea, coarse breath sound bilateral base - CARDIOVASCULAR: Regular rate and rhythm. No murmur. No JVD. - ABDOMEN: Soft, non-tender and non-distended. No palpable masses. - EXTREMITIES: No edema. Peripheral pulses 2+. Non-tender. - NEUROLOGIC: No focal neurological deficits. CN II-XII grossly intact. - PSYCHIATRIC: Awake, Alert and oriented x 3. Appropriate mood and affect. - SKIN: No rashes or lesions. Warm. - LYMPH: No cervical lymphadenopathy. Objective Data Vital Signs Vital Signs: Vital Signs - 24 hr 10/08/24 08:47 10/08/24 08:47 10/08/24 09:27 Temperature Pulse Rate 80 Respiratory Rate 22 H Blood Pressure Pulse Oximetry 93 Oxygen Delivery BiPAP BiPAP Oxygen Flow Rate Fraction of Inspired Oxygen 40 10/08/24 10:00 10/08/24 12:00 10/08/24 12:00 Temperature 98.5 F Pulse Rate 74 66 66 Respiratory Rate 22 H 22 H Blood Pressure 171/137 H Pulse Oximetry 94 94 Oxygen Delivery Nasal Cannula Oxygen Flow Rate 5 Fraction of Inspired Oxygen 40 10/08/24 12:00 10/08/24 14:00 10/08/24 16:00 Temperature 98.8 F Pulse Rate 66 82 70 Respiratory Rate 21 H Blood Pressure 189/81 H Pulse Oximetry 96 Oxygen Delivery Oxygen Flow Rate Fraction of Inspired Oxygen 10/08/24 16:00 10/08/24 16:00 10/08/24 18:00 Temperature Pulse Rate 64 68 Respiratory Rate Blood Pressure Pulse Oximetry 97 Oxygen Delivery Nasal Cannula Oxygen Flow Rate 3 Fraction of Inspired Oxygen 10/08/24 20:00 10/08/24 20:00 10/08/24 20:00 Temperature Pulse Rate 70 70 60 Respiratory Rate 19 19 Blood Pressure 146/80 H Pulse Oximetry 92 92 Oxygen Delivery Nasal Cannula Oxygen Flow Rate 4 Fraction of Inspired Oxygen 10/08/24 20:09 10/08/24 21:29 10/08/24 21:30 Temperature Pulse Rate 67 67 65 Respiratory Rate 15 16 Blood Pressure Pulse Oximetry 94 Oxygen Delivery Nasal Cannula Oxygen Flow Rate 4 Fraction of Inspired Oxygen 10/08/24 23:36 10/09/24 00:00 10/09/24 00:00 Temperature 98.0 F Pulse Rate 67 71 Respiratory Rate 20 Blood Pressure 162/65 H Pulse Oximetry 99 99 Oxygen Delivery Nasal Cannula Oxygen Flow Rate 4 Fraction of Inspired Oxygen 10/09/24 02:00 10/09/24 03:12 10/09/24 03:22 Temperature Pulse Rate 65 75 77 Respiratory Rate 18 18 Blood Pressure Pulse Oximetry Oxygen Delivery Oxygen Flow Rate Fraction of Inspired Oxygen 10/09/24 04:00 10/09/24 04:00 10/09/24 04:15 Temperature 97.8 F Pulse Rate 65 69 Respiratory Rate 20 Blood Pressure 156/83 H Pulse Oximetry 91 91 Oxygen Delivery Nasal Cannula Oxygen Flow Rate 4 Fraction of Inspired Oxygen 10/09/24 06:00 10/09/24 08:00 10/09/24 08:25 Temperature 98.2 F Pulse Rate 63 73 79 Respiratory Rate 24 H Blood Pressure 158/68 H Pulse Oximetry 93 Oxygen Delivery Oxygen Flow Rate Fraction of Inspired Oxygen Intake/Output Intake/Output: Intake & Output 12/09/24 12/10/24 12/11/24 12/12/24 23:59 23:59 23:59 23:59 Intake Total 760 550 Output Total 800 300 Balance -40 250 Meds/Results Medications: Active Medications Generic Name Dose Route Start Last Admin Trade Name Freq PRN Reason Stop Dose Admin Albuterol 2.5 mg 10/08/24 08:22 Albuterol Sulfate Neb 2.5 Mg/3 Ml Inh INHALATION Q4HRT PRN Shortness Of Breath Or Wheezing Albuterol/Ipratropium 3 ml 10/08/24 08:00 10/09/24 03:12 Ipratropium 0.5 Mg/Albuterol Sulfate 2.5 Mg Ampul.Neb 3 Ml INHALATION 3 ml Q6HRT ANURADHA Administration Aspirin 81 mg 10/08/24 09:00 10/09/24 08:25 Aspirin 81 Mg Enteric Tablet PO 81 mg QAM ANURADHA Administration Atorvastatin Calcium 40 mg 10/08/24 21:00 10/08/24 20:09 Atorvastatin 40 Mg Tablet PO 40 mg HS ANURADHA Administration Buspirone HCl 10 mg 10/08/24 09:00 10/09/24 08:25 Buspirone Hcl 10 Mg Tablet PO 10 mg TID ANURADHA Administration Famotidine 20 mg 10/08/24 09:00 10/09/24 08:25 Famotidine 20 Mg Tablet PO 20 mg DAILY ANURADHA Administration Furosemide 40 mg 10/08/24 09:00 10/09/24 08:25 Furosemide Inj 40 Mg/4 Ml Vial IV PUSH 40 mg DAILY ANURADHA Administration Gabapentin 400 mg 10/08/24 21:00 10/08/24 20:09 Gabapentin 400 Mg Capsule PO Not Given QHS [facility] Insulin Aspart 9 units 10/08/24 12:00 10/08/24 17:21 Insulin Aspart (*Bkc) 100 Units/Ml SUB-Q 9 units 1200,1700 ANURADHA Administration Insulin Glargine 28 units 10/08/24 21:00 10/08/24 22:02 Insulin Glargine (*Bkc) 100 Units/Ml SUB-Q 28 units QHS [facility] Administration Losartan Potassium 100 mg 10/08/24 09:00 10/09/24 08:25 Losartan Potassium 100 Mg Tablet PO 100 mg DAILY ANURADHA Administration Methylprednisolone Sodium Succinate 60 mg 10/08/24 08:30 10/09/24 05:56 Methylprednisolone Sod Succ 125 Mg Vial IV PUSH 60 mg Q6HR ANURADHA Administration Metoprolol Tartrate 50 mg 10/08/24 09:00 10/09/24 08:25 Metoprolol Tartrate 50 Mg Tab PO 50 mg Q12HR ANURADHA Administration Ondansetron HCl 4 mg 10/08/24 05:00 Ondansetron Inj 4 Mg/2 Ml Vial IV PUSH Q4H PRN Nausea Perflutren Lipid Microsphere 0 ml 10/08/24 08:22 Perflutren Lipid Microspheres 1.5 Ml Vial Diluted To 10 Ml Total Volume IV PUSH 10/11/24 08:24 ONCE PRN adequate visualization Protocol Polyethylene Glycol 17 gm 10/08/24 08:11 Polyethylene Glycol 3350 17 Gm Powd.Pack PO DAILY PRN Constipation Risperidone 0.5 mg 10/08/24 08:15 10/09/24 08:31 Risperidone 0.5 Mg Tablet PO 0.5 mg 0800,1200 [facility] Administration Rivaroxaban 20 mg 10/08/24 17:00 10/08/24 17:15 Rivaroxaban 20 Mg Tablet PO 20 mg DAILY@1700 [facility] Administration Senna/Docusate Sodium 1 tab 10/08/24 08:11 Senna/Docusate Sodium Tablet PO BID PRN Constipation Spironolactone 25 mg 10/08/24 09:00 10/09/24 08:25 Spironolactone 25 Mg Tablet PO 25 mg QAM ANURADHA Administration Tamsulosin HCl 0.4 mg 10/08/24 09:00 10/09/24 08:25 Tamsulosin Hcl 0.4 Mg Capsule PO 0.4 mg DAILY [facility] Administration Tramadol HCl 50 mg 10/08/24 08:16 Tramadol Hcl (*Crx) 50 Mg Tablet PO Q6H PRN Pain Trazodone HCl 25 mg 10/08/24 21:00 10/08/24 20:09 Trazodone Hcl 25 Mg Tablet PO 25 mg HS [facility] Administration Umeclidinium/Vilanterol 1 puff 10/08/24 09:00 Umeclidinium/Vilanterol 62.5-25 Mcg Ellipta INHALATION DAILY [facility] Radiology Results: ITS Impressions Chest X-Ray 10/07/24 22:27 IMPRESSION: Diffuse reticular opacities likely representing interstitial edema. Infection not excluded. Labs Labs: Laboratory Results - last 24 hr 10/07/24 10/08/24 10/08/24 23:23 10:34 12:15 POC Capillary Glucose 327 H Iron 55 TIBC 411 % Saturation 13 L Ferritin 57.50 NT-Pro-B Natriuret Pep 153 H 10/08/24 22:00 POC Capillary Glucose 310 H Iron TIBC % Saturation Ferritin NT-Pro-B Natriuret Pep
[2024-10-09] MEDS: UMECLIDINIUM/VILANTEROL 62.5-25 MCG ELLIPTA 1 PUFF INHALATION (11:44)
--- NOTE | 2024-10-09 11:59 | P.CONPL_ITS ---
Assessment and Plan Assessment and plan (1) COPD exacerbation: Code(s): J44.1 - Chronic obstructive pulmonary disease with (acute) exacerbation Status: Acute Assessment and Plan: Regarding COPD, Patient has a history of tobacco use (25 PY, quit in 1999). Patient has chronic hypercarbic and hypoxemic respiratory failure with multiple admissions to [facility]. CT angiogram on 12/30/2021 with no emphysema. Unable to complete PFTs on 04/02/2023 due to inability to follow directions from his disability. Most recently a blood gas on BiPAP 10/03 was 7.37/78/100. He has been prescribed a BiPAP but has difficulty wearing this at the facility. 3 L nasal cannula with rest, activity and sleep. Inpatient COPD exacerbation 03/08/2023. 02/28/2023, white blood cell count 8.8, eosinophils 1.6% equals 140 per micro L. 05/09/2023 white blood cell count 6.8, eosinophils 3.2% equals 218 per micro L. 10/20/2023 white blood cell count 6.3, eosinophils 2.1%=132/uL. 10/09/24: Is very difficult to get an accurate history from the patient he denies coughing but is coughing in front of me with moist secretions. At this time I will treat him for COPD exacerbation. Plan: I will decrease his Solu-Medrol from 60 mg IV q.6 to 20 mg IV q.6. I will continue albuterol and ipratropium nebulizers q.6 hours. I will start azithromycin 500 IV q.day for possible bronchitis. The patient is on 3 L nasal cannula at rest with activity and sleep and currently is on 3 L with saturations 95%. Will follow with you. (2) Acute on chronic respiratory failure with hypoxia and hypercapnia: Code(s): J96.21 - Acute and chronic respiratory failure with hypoxia; J96.22 - Acute and chronic respiratory failure with hypercapnia Status: Acute Assessment and Plan: Patient has chronic hypercarbic respiratory failure from his COPD and would benefit from noninvasive ventilation. He has anxiety and he can't tolerate BiPAP when he was in the hospital or previous notes state he can't tolerate BiPAP. Patient would benefit from noninvasive ventilation with an AVAPS-AE mode to prevent disease progression and to prevent subsequent hospitalizations. We will call [facility] to discuss with them how we can accomplish this. They cannot support AVAPS and he is intermittently tolerating BiPAP. 10/09/24: Patient tells me is that he did tolerate a fullface mask with the BiPAP rate of 20, pressures 20/8 inspiratory time 0.75 and a rise of 3 In the hospital last night. As an outpatient we are trying to get the patient refit for full facemask. at this time will place the patient on a BiPAP rate of 20, pressures 20/8, inspiratory time 0.75 and a rise of 3 with an FiO2 of 32% and will obtain an ABG prior to removal and an overnight oximetry on these settings. will attempt to obtain download from [facility] as the patient tells me he has been wearing his machine at night every night. (3) History of DVT (deep vein thrombosis): Code(s): Z86.718 - Personal history of other venous thrombosis and embolism Status: Chronic Assessment and Plan: Patient carries a diagnosis of DVT. The only Doppler studies we have from 12/16/2021 are negative for DVT with bilateral Palacios cysts. Patient remains on Xarelto and will continue this at this time. History of Present Illness History of Present Illness Consult date: 10/09/24 Chief complaint: COPD exacerbation,hypercarbic resp failure, BIPAP Narrative: 63-year-old with a history of COPD, chronic hypercarbic and hypoxemic respiratory failure on 3 L nasal cannula 24-7 and prescribed BiPAP but he is poorly compliant with this because of mask issues, mentation issues and anxiety. Patient is followed in the Pulmonary Clinic in last seen on 05/08/2024. Regarding COPD, Patient has a history of tobacco use (25 PY, quit in 1999). Patient has chronic hypercarbic and hypoxemic respiratory failure with multiple admissions to [facility]. CT angiogram on 12/30/2021 with no emphysema. Unable to complete PFTs on 04/02/2023 due to inability to follow directions from his disability. Most recently a blood gas on BiPAP 10/03 was 7.37/78/100. He has been prescribed a BiPAP but has difficulty wearing this at the facility. 3 L nasal cannula with rest, activity and sleep. Inpatient COPD exacerbation 03/08/2023. 02/28/2023, white blood cell count 8.8, eosinophils 1.6% equals 140 per micro L. 05/09/2023 white blood cell count 6.8, eosinophils 3.2% equals 218 per micro L. 10/20/2023 white blood cell count 6.3, eosinophils 2.1%=132/uL. Patient has chronic hypercarbic respiratory failure from his COPD and would benefit from noninvasive ventilation. He has anxiety and he can't tolerate BiPAP when he was in the hospital or previous notes state he can't tolerate BiPAP. Patient would benefit from noninvasive ventilation with an AVAPS-AE mode to prevent disease progression and to prevent subsequent hospitalizations. We will call [facility] to discuss with them how we can accomplish this. They cannot support AVAPS and he is intermittently tolerating BiPAP Last seen in the Pulmonary Clinic on 05/08/24: no exacerbations or hospitalizations. Patient is clinically stable on Anoro Ellipta and rescue albuterol using 1 time a day. He walks with a walker. He is not smoking or exposed to secondhand smoke. He is using 3 L with rest, activity and sleep. COPD plan: Continue Anoro Ellipta 1 puff q.day and rescue albuterol Q 4 hours p.r.n. shortness of breath or wheezing. He is scheduled to get the influenza and COVID vaccine This fall. I have encouraged him to increase his activity as tolerated. Goal saturation 90-94%. He is not smoking or exposed to secondhand smoke. regarding his RIKKI: Plan: I have written the note for the patient to have a mask refit with a fullface mask or nasal pillows to see if this will be more comfortable so that this will increase his compliance. 05/08/24: Patient tells me he never had the mask refit that I wrote a note for last time to have a mask refit with a fullface mask or nasal pillows to see if this will be more comfortable so that this will increase his compliance. 05/08/2024: Weight 256. Plan: I have again spoken with the rn [facility] and he will pass this on to the nursing staff to have a mask refit. The patient states he is willing to wear a mask if he can have 1 that is not too tight and fits properly. The patient has edema and the geriatric social worker will mention this as well as the mask refit to the nurse practitioner who comes on Mondays. 10/07/2024: patient presented to the emergency department on 10/07 with shortness of breath and hypoxemia. EMS records that he was on 4 L with saturations 94-96. White blood cell count was 8.2 with 4.4% eosinophils, creatinine was 1.10, BNP was 153, COVID, influenza, RSV negative. Initial blood gas on 3.5 L nasal cannula 7.34/79/81. Patient was placed on BiPAP with a repeat blood gas 4 hours later of 7.36/83/64. Patient was admitted to the hospital for COPD exacerbation and treated with Solu-Medrol, bronchodilators and also given a dose of IV Lasix. 10/09/2024: patient is unable to give an accurate history given his prior to medic brain injury and poor mentation. When I enter the room he is awake and alert he is on 3 L nasal cannula saturations 95% and no respiratory distress. He is cheerful and tells me he feels back to normal. He denies cough although he is coughing and this is a moist cough with phlegm production. His white blood cell count DATA: EXAMINATION: CT diagnostic chest wo con DATE: 07/23/2024 13:31 INDICATION: SOB TECHNIQUE: Computed tomography (CT) of the chest was performed with 100 mL Omnipaque-350 intravenous contrast. Automated exposure control and iterative reconstruction technique were employed. The dose-length product was 870.40 mGy- cm. COMPARISON: 12/17/2021; CTPA 12/30/2021. FINDINGS: CHEST: Thoracic aorta: No significant dilation. Mild aortic calcification. Lung parenchyma and airways: Motion artifact in the lungs. Patent airways. 13 mm left lower lobe pulmonary nodule, medial and inferior lingula (axial image 71). Scattered reticulonodular and centrilobular nodular opacities in the left lung. Thoracic inlet, axillae and chest wall: Left chest pacer with intact leads, terminating in expected position. No thyroid mass. Bilateral gynecomastia. No axillary lymphadenopathy. Mediastinum: No mass or lymphadenopathy. Dilated central pulmonary arteries as can be seen with pulmonary arterial hypertension. Heart and pericardium: Mild cardiomegaly. Aortic valve and mitral calcification. No pericardial effusion. Coronary artery calcifications: Heavy. Pleura: Extensive calcified pleural plaque in the right hemithorax. Upper abdomen: No significant finding. Thoracic bones: No acute osseous finding in the chest. IMPRESSION: New 13 mm pulmonary nodule in the medial lingula. Consider CT follow-up at 3 months, PET/CT, or tissue sampling. Scattered pulmonary opacities in the left lung may represent atypical infection in the appropriate clinical context. Asbestos related pleural disease. ??12/30/2021 EXAMINATION: CTA chest PE protocol ??INDICATION: Respiratory distress. ??Comparison is made to prior examination from 12/17/2021. ??FINDINGS: The main, central pulmonary arteries are dilated which can indicate elevated pulmonary arterial pressure, pulmonary arterial hypertension. ? Pulmonary arteries are well opacified and without intraluminal filling defects. ? No thoracic aortic dissection. There is interval development of small to moderate amount of right-sided upper lobe predominant airspace disease appearance most consistent with pneumonia. There is some mucous within the bronchus intermedius, also has developed compared to prior study. Chronic right pleural calcifications unchanged. No mediastinal lymphadenopathy. There is 3 mm right calyceal stone. ??IMPRESSION: ?1.? Development of small to moderate amount of right-sided airspace disease most consistent with pneumonia, less likely asymmetric edema. ??2.? Cardiomegaly, dilated pulmonary arteries. ??3.? No pulmonary emboli. ?12/17/2021 EXAMINATION: CT diagnostic chest wo con ??DATE: 12/17/2021 16:50 ??INDICATION: Chronic opacities of the right mid and lower lung and left lung base. Dense calcified pleural plaques. COMPARISON: CT dated 12/28/2014 ??FINDINGS: Cardiomegaly. No significant pleural or pericardial effusion. There is atherosclerosis of the aorta and coronary arteries. No significant pleural or pericardial effusion. No thoracic lymphadenopathy. There are extensive pleural calcifications of the right lung, likely secondary to previous asbestos exposure or infection. There is chronic bilateral fissural thickening, left greater than right. There is chronic atelectasis/scarring in the lower lobes. There is a 4 mm right upper lobe nodule, image 44, likely benign. There are smaller nodules in the upper lobes. ??IMPRESSION: ??1. Bilateral pulmonary nodules measuring 4 mm or less, likely benign. Consider follow-up low dose CT chest in 12 months. ??2: Chronic infiltrates of the lower lungs which most likely represents atelectasis/scarring. ??3:? Chronic fissural thickening with chronic right pleural calcifications, likely from previous asbestos exposure or infection. 12/28/2014 CT scan of the chest demonstrates left upper lobe dense consolidation lingula and left lower lobe dense consolidative infiltrates.? Extensive pleural calcification on the right lung. ?------ ?12/17/2021 ?Echo summary Summary ??? 1. Technically difficult study with limited views.? Regional wall motion ??assessment limited due to poor endomyocardial border definition despite ??definity contrast enhancement. ??? 2. Left ventricular chamber dimension is mildly enlarged. ??? 3. Left ventricular systolic function is mild to moderately reduced, ??estimated at 40-45%. ??? 4. There is moderately increased left ventricular wall thickness. ??? 5. Left ventricular septal wall motion is abnormal with septal motion ??related to pacing. ??? 6. The left ventricular diastolic function is abnormal. ??? 7. There is no aortic valve stenosis. ??? 8. There is trace tricuspid valve regurgitation. ??? 9. Mild pulmonary hypertension, estimated pulmonary arterial systolic ??pressure is 40 mmHg. ??? 10. There is trace mitral valve regurgitation. ?Right Ventricle ??? Right ventricular chamber dimension is normal. ??? Right ventricular systolic function is normal. ??? Linear artifact in right ventricle suggestive of catheter(s), pacemaker ??lead(s), or ICD lead(s). ??Right Atria. ? Right atrial chamber dimension is moderately enlarged. ? ?10/19/2005.? CPAP titration:? Impression:? Adequate correction of respiratory events with CPAP at 10.? It was noted during the study that his oxygen saturation remained marginal in the recommendation was 2 L oxygen to be added.? Review of Systems 2 Review of Systems: ROS unobtainable: Yes unobtainable due to mental status PMFSH Past Medical History Medical History Bipolar disorder Cerebrovascular accident Chronic anticoagulation Chronic obstructive pulmonary disease Chronic respiratory failure with hypoxia and hypercapnia Combined systolic and diastolic congestive heart failure Echocardiogram on 12/16/2021 showed a mildly enlarged LV chamber, [id number] reduced left ventricular systolic function with an EF estimated 40 to 45%, and abnormal diastolic function. Coronary artery disease Deep venous thrombosis Depression Diabetic neuropathy Generalized anxiety disorder History of trauma Traumatic brain injury years ago after a fall. Hypertension Insulin dependent diabetes mellitus Mild pulmonary hypertension Estimated pulmonary arterial systolic pressure was 40 mmHg on echocardiogram in November 2021. Obstructive sleep apnea Noncompliant with BiPAP. On 2 L nasal cannula at nighttime. Pacemaker Paroxysmal atrial fibrillation Paroxysmal atrial flutter Transient ischemic attack Surgical History Surgical History History of coronary artery stent placement History of open reduction and internal fixation (ORIF) procedure Repair of right lower extremity and left shoulder fractures. History of pacemaker History of tracheostomy Family History Family History Other Cancer Social History Social History Social History: Resident at [employer]. He is and has 1 child. On disability since his traumatic brain injury. He smoked up to 2 packs of cigarettes a day but is now down to about a pack a day. He has smoked for at least 30+ years. No alcohol or illicit substance abuse. Healthcare power of traffic law attorney: Simone Morley. Code status: Full code. Smoking packs per day: 1 Smoking cigarettes per day: 20.0 Years smoked: 30 Smoking pack-years: 30.00 Smoking status: Former smoker Second hand tobacco smoke exposure: No Alcohol intake: unknown Substance use: unknown Spiritual care concerns: No Meds Home Medications and Allergies Home Medications ?Medication ?Instructions ?Recorded ?Confirmed ?Type aspirin 81 mg tablet 81 mg PO DAILY 11/26/20 10/08/24 History albuterol sulfate 90 mcg/actuation 2 puff inhalation Q4H 12/15/21 10/08/24 History aerosol inhaler buspirone 10 mg tablet 10 mg PO TID 12/15/21 10/08/24 History polyethylene glycol 3350 17 17 g PO DAILY PRN Constipation 12/15/21 10/08/24 History gram/dose oral powder sennosides 8.6 mg-docusate sodium 1 tablet PO BID PRN Constipation 12/15/21 10/08/24 History 50 mg tablet (Senexon-S) tamsulosin 0.4 mg capsule 0.4 mg PO DAILY 12/15/21 10/08/24 History multivitamin (Daily-Isidro tablet) 1 tablet PO DAILY 12/16/21 10/08/24 History albuterol sulfate 2.5 mg/3 mL 2.5 mg inhalation Q4-6H PRN Dyspnea 02/22/22 10/08/24 History (0.083 %) solution for nebulization Anoro Ellipta 1 puff inhalation DAILY 02/08/23 10/08/24 History ketoconazole 2 % shampoo 4 applic topical DAILY 02/08/23 10/08/24 History gabapentin 100 mg capsule 200 mg PO 0800,1200 07/31/23 10/08/24 History gabapentin 400 mg capsule 400 mg PO QHS 07/31/23 10/08/24 History insulin glargine 100 unit/mL 28 unit subcut QHS 07/31/23 10/08/24 History subcutaneous solution (Lantus U-100 Insulin) insulin lispro 100 unit/mL 9 unit subcut USEASDIRECTD 07/31/23 10/08/24 History subcutaneous pen rivaroxaban 20 mg tablet (Xarelto) 20 mg PO QAM 07/31/23 10/08/24 History cholecalciferol (vitamin D3) 125 125 mcg PO DAILY 10/20/23 10/08/24 History mcg (5,000 unit) tablet (Vitamin D3) trazodone 50 mg tablet 25 mg PO HS 10/20/23 10/08/24 History atorvastatin 40 mg tablet 40 mg PO HS #0 tabs 10/22/23 10/08/24 Rx furosemide 40 mg tablet 40 mg PO DAILY #0 tabs 10/22/23 10/08/24 Rx metoprolol tartrate 50 mg tablet 50 mg PO Q12HR #0 tabs 10/22/23 10/08/24 Rx spironolactone 25 mg tablet 25 mg PO QAM #0 tabs 10/22/23 10/08/24 Rx tramadol 50 mg tablet 50 mg PO Q6H PRN Pain #10 tabs 10/22/23 10/08/24 Rx risperidone 0.5 mg tablet 0.5 mg PO .0800/1200 11/22/23 10/08/24 History amantadine HCl 100 mg capsule 100 mg PO DAILY 10/08/24 10/08/24 History dulaglutide 0.75 mg/0.5 mL 0.75 mg subcut WEEKLY 10/08/24 10/08/24 [facility] famotidine 20 mg tablet 20 mg PO DAILY 10/08/24 10/08/24 History insulin glargine-yfgn 100 unit/mL 5 unit subcut DAILY 10/08/24 10/08/24 History subcutaneous solution insulin glargine-yfgn 100 unit/mL 38 unit subcut QPM 10/08/24 10/08/24 History subcutaneous solution insulin lispro 100 unit/mL 5 unit subcut DAILY 10/08/24 10/08/24 History subcutaneous solution insulin lispro 100 unit/mL 11 unit subcut .lunch and supper 10/08/24 10/08/24 History subcutaneous solution ipratropium 0.5 mg-albuterol 3 mg 3 ml inhalation Q6H PRN shortness 10/08/24 10/08/24 History (2.5 mg base)/3 mL nebulization of breath or wheezing soln ketoconazole 2 % topical cream 1 applic topical BID 10/08/24 10/08/24 History losartan 100 mg tablet 100 mg PO DAILY 10/08/24 10/08/24 History Allergies Allergy/AdvReac Type Severity Reaction Status Date / Time acetaminophen Allergy Unknown Unknown Verified 10/07/24 22:33 Vital Signs Vital Signs - 24 hr 10/08/24 12:00 10/08/24 12:00 10/08/24 12:00 Temperature 36.9 C Pulse Rate 66 66 66 Respiratory Rate 22 H 22 H Blood Pressure 171/137 H Pulse Oximetry 94 94 Oxygen Delivery Nasal Cannula Oxygen Flow Rate 5 Fraction of Inspired Oxygen 40 10/08/24 14:00 10/08/24 16:00 10/08/24 16:00 Temperature 37.1 C Pulse Rate 82 70 Respiratory Rate 21 H Blood Pressure 189/81 H Pulse Oximetry 96 97 Oxygen Delivery Nasal Cannula Oxygen Flow Rate 3 Fraction of Inspired Oxygen 10/08/24 16:00 10/08/24 18:00 10/08/24 20:00 Temperature Pulse Rate 64 68 70 Respiratory Rate 19 Blood Pressure Pulse Oximetry 92 Oxygen Delivery Nasal Cannula Oxygen Flow Rate 4 Fraction of Inspired Oxygen 10/08/24 20:00 10/08/24 20:00 10/08/24 20:09 Temperature Pulse Rate 70 60 67 Respiratory Rate 19 Blood Pressure 146/80 H Pulse Oximetry 92 Oxygen Delivery Oxygen Flow Rate Fraction of Inspired Oxygen 10/08/24 21:29 10/08/24 21:30 10/08/24 23:36 Temperature 36.7 C Pulse Rate 67 65 67 Respiratory Rate 15 16 20 Blood Pressure 162/65 H Pulse Oximetry 94 99 Oxygen Delivery Nasal Cannula Oxygen Flow Rate 4 Fraction of Inspired Oxygen 10/09/24 00:00 10/09/24 00:00 10/09/24 02:00 Temperature Pulse Rate 71 65 Respiratory Rate Blood Pressure Pulse Oximetry 99 Oxygen Delivery Nasal Cannula Oxygen Flow Rate 4 Fraction of Inspired Oxygen 10/09/24 03:12 10/09/24 03:22 10/09/24 04:00 Temperature Pulse Rate 75 77 Respiratory Rate 18 18 Blood Pressure Pulse Oximetry 91 Oxygen Delivery Nasal Cannula Oxygen Flow Rate 4 Fraction of Inspired Oxygen 10/09/24 04:00 10/09/24 04:15 10/09/24 06:00 Temperature 36.6 C Pulse Rate 65 69 63 Respiratory Rate 20 Blood Pressure 156/83 H Pulse Oximetry 91 Oxygen Delivery Oxygen Flow Rate Fraction of Inspired Oxygen 10/09/24 08:00 10/09/24 08:00 10/09/24 08:25 Temperature 36.8 C Pulse Rate 73 69 79 Respiratory Rate 24 H 20 Blood Pressure 158/68 H Pulse Oximetry 93 91 Oxygen Delivery Nasal Cannula Oxygen Flow Rate 3 Fraction of Inspired Oxygen 10/09/24 09:02 10/09/24 09:02 10/09/24 09:13 Temperature Pulse Rate 78 69 Respiratory Rate 20 20 Blood Pressure Pulse Oximetry 91 Oxygen Delivery Nasal Cannula Oxygen Flow Rate 3 Fraction of Inspired Oxygen 10/09/24 11:21 10/09/24 11:39 10/09/24 11:48 Temperature 37.5 C Pulse Rate 68 74 68 Respiratory Rate 22 H 20 20 Blood Pressure 132/91 H Pulse Oximetry 94 Oxygen Delivery Oxygen Flow Rate Fraction of Inspired Oxygen Exam 2 Const: General: cooperative, healthy appearing and comfortable O rientation/consciousness: oriented to person HENMT: Head: normal to inspection Ears: hearing grossly normal bilaterally Eyes: General: appearance normal, both eyes and all related structures Neck: Neck: normal visual inspection Chest: Chest palpation & inspection: normal inspection of the chest Resp: Effort & Inspection: normal respiratory effort and able to speak in complete sentences Auscultation: no crackles, rales, no rhonchi, no wheezes and lung sounds not diminished Cardio: Jugular venous distension: no JVD GI: Inspection: normal to inspection GI Palp: No abdominal tenderness Skin: General skin exam: normal color Neuro: General: oriented to person, oriented to place and oriented to time Extrem: General: normal to inspection and edema Psych: Appearance: grossly normal Results Laboratory Findings 10/07/24 23:23 10/07/24 23:23 ABG, PT/INR, D-dimer: ABG ABG pH 7.356 (7.350-7.450) 10/08/24 04:22 ABG pCO2 83.4 mmHg (35.0-45.0) H* 10/08/24 04:22 ABG pO2 64.4 mmHg (80.0-100.0) L 10/08/24 04:22 ABG O2 Saturation 90.4 % (95.0-100.0) L 10/08/24 04:22 PT/INR, D-dimer D-Dimer 0.54 ug/mL (<0.48) H 10/07/24 23:23 Abnormal lab findings: Abnormal Labs 10/07/24 10/08/24 10/08/24 23:23 00:05 01:53 RBC 3.27 L Hgb 10.0 L Hct 34.0 L MCV 104.0 H MCHC 29.4 L Lymph % (Auto) 13.9 L Mcdonough % (Auto) 11.7 H Mcdonough # (Auto) 1.0 H Eos # (Auto) 0.4 H D-Dimer 0.54 H ABG pH 7.335 L ABG pCO2 79.3 H* ABG pO2 ABG HCO3 41.3 H ABG O2 Saturation 94.6 L ABG O2 Content 14.9 L Total Hemoglobin 11.1 L Potassium 5.4 H Chloride 96 L Carbon Dioxide > 40 H BUN 40 H D Glucose 181 H POC Capillary Glucose 170 H % Saturation NT-Pro-B Natriuret Pep 153 H 10/08/24 10/08/24 10/08/24 04:22 10:34 12:15 RBC Hgb Hct MCV MCHC Lymph % (Auto) Mcdonough % (Auto) Mcdonough # (Auto) Eos # (Auto) D-Dimer ABG pH ABG pCO2 83.4 H* ABG pO2 64.4 L ABG HCO3 45.6 H ABG O2 Saturation 90.4 L ABG O2 Content 15.3 L Total Hemoglobin 11.9 L Potassium Chloride Carbon Dioxide BUN Glucose POC Capillary Glucose 327 H % Saturation 13 L NT-Pro-B Natriuret Pep 10/08/24 22:00 RBC Hgb Hct MCV MCHC Lymph % (Auto) Mcdonough % (Auto) Mcdonough # (Auto) Eos # (Auto) D-Dimer ABG pH ABG pCO2 ABG pO2 ABG HCO3 ABG O2 Saturation ABG O2 Content Total Hemoglobin Potassium Chloride Carbon Dioxide BUN Glucose POC Capillary Glucose 310 H % Saturation NT-Pro-B Natriuret Pep
[2024-10-09] MEDS: INSULIN ASPART (*BKC) 100 UNITS/ML 9 UNITS SUB-Q ×2 (12:11→17:31)
[2024-10-09] MEDS: AZITHROMYCIN 500 MG/NS 250 ML 500 MG/250 ML BAG 250 MG IVPB (14:58)
--- NOTE | 2024-10-09 15:52 | PC.NURSE ---
This patient, Jp Morley, was transferred to [[id number] ] on 10/09/24 at 1552. Personal belongings sent with patient. Report given to [ CATHI Colvin @ [phone]]. Appropriate documentation sent with patient.
[2024-10-09] MEDS: RIVAROXABAN 20 MG TABLET PO (17:11)
[2024-10-09 17:21] LABS: Glucose Point of Care 341 mg/dl (65-105)
[2024-10-09] MEDS: methylPREDNISolone SOD SUCC 40 MG VIAL 20 MG IV PUSH ×2 (17:30→23:07)
[2024-10-09] MEDS: INSULIN ASPART (*BKC) 100 UNITS/ML SUB-Q (17:32)
[2024-10-09 21:20] LABS: Glucose Point of Care 195 mg/dl (65-105)
[2024-10-09] MEDS: ATORVASTATIN 40 MG TABLET PO (22:10)
[2024-10-09] MEDS: SENNA/DOCUSATE SODIUM TABLET 1 TAB PO (22:10)
[2024-10-09] MEDS: GABAPENTIN 400 MG CAPSULE PO (22:10)
[2024-10-09] MEDS: traZODone HCL 25 MG TABLET PO (22:11)
[2024-10-09] MEDS: INSULIN GLARGINE (*BKC) 100 UNITS/ML 28 UNITS SUB-Q (22:12)
[2024-10-10] VITALS (12 sets, daily range): BP systolic 131–144; BP diastolic 75–94; PULSE 80–104; RESP 20–95; TEMP 36.3–36.4; O2SAT 93–95
[2024-10-10] MEDS: IPRATROPIUM 0.5 MG/ALBUTEROL SULFATE 2.5 MG AMPUL.NEB 3 ML INHALATION ×3 (02:22→21:29)
--- NOTE | 2024-10-10 03:59 | PCRCNOTE ---
pt was unable to tolerate NIV during oximetry study; RN placed pt on 3L of oxygen at approximately 0100
[2024-10-10] MEDS: methylPREDNISolone SOD SUCC 40 MG VIAL 20 MG IV PUSH (05:39)
[2024-10-10 05:47] LABS: HCO3 ABG 43.7 mEq/l (22.0-26.0); Oxygen Saturation ABG 93.5 % (95.0-100.0); PCO2 ABG 70.5 mmHg (35.0-45.0); PO2 ABG 70.2 mmHg (80.0-100.0); Total Hemoglobin 11.7 g/dL (12.0-18.0)
[2024-10-10 05:48] LABS: Fractional Inspired Oxygen 21 %; Modified Allen's Test Pass; Oxygen Content ABG 15.4 %vol (16.0-22.0); Oxyhemoglobin 93.1 % THb (90.0-100.0); PO2 FiO2 Ratio Arterial Blood 3.34 %; Site Drawn LEFT RADIAL
[2024-10-10 05:49] LABS: Device NASAL CANNULA
--- NOTE | 2024-10-10 06:03 | PC.NURSE ---
patient refused bipap around 1am, and returned to 3L O2 NC. morning ABGs revealed a critical CO2. MD ordered patient to go back on bipap. patient refusing at this time. patient educated on why bipap is important/necessary at this time. will offer bipap to patient again shortly.
[2024-10-10 06:17] LABS: Basophils Percent Auto 0.1 % (0.2-1.2); Hematocrit 34.8 % (42.0-52.0); Hemoglobin 10.4 g/dL (14.0-18.0); Immature Granulocyte Absolute 0.07 K/mm3 (0.00-0.031); Immature Granulocyte Percent A 0.6 % (0-0.5); Lymphocytes Absolute Auto 0.51 K/mm3 (0.9-3.2); Lymphocytes Percent Auto 4.6 % (18.3-44.2); Mean Corpuscular HGB Conc 29.9 g/dl (32-36); Mean Corpuscular Hemoglobin 30.1 pg (26-34); Mean Corpuscular Volume 100.9 fl (80-100); Monocytes Absolute Auto 0.9 K/mm3 (0.1-0.6); Monocytes Percent Auto 8.4 % (2.6-8.5); Neutrophils Absolute Auto 9.6 K/mm3 (1.3-6.7); Neutrophils Percent Auto 86.3 % (45.5-73.1); Platelet Count Result 173 k/mm3 (150-375); Red Blood Count 3.45 M/mm3 (4.6-6.20); Red Cell Distribution Width 13.8 % (11.5-14.5); White Blood Count 11.1 K/mm3 (4.5-10.0)
[2024-10-10 06:35] LABS: Alanine Aminotransferase 24 U/L (6-50); Albumin Level 3.6 g/dL (3.5-5.1); Alkaline Phosphatase 73 U/L (38-126); Aspartate Amino Transferase 31 U/L (17-59); Bilirubin,Total 0.5 mg/dL (0.2-1.3); Blood Urea Nitrogen 44 mg/dL (9-20); Calcium 8.9 mg/dL (8.4-10.2); Carbon Dioxide > 40 mmol/L (22-30); Chloride 96 mmol/L (98-107); Estimated CRCL calculation 72 ml/min; Estimated Glomerular Filt Rate > 60; Glucose 240 mg/dL (65-110); Potassium 4.8 mmol/L (3.4-5.0); Sodium 142 mmol/L (137-145)
[2024-10-10 07:05] LABS: Anisocytosis 1+; Platelet Estimate Adequate (Adequate); Schistocytes None Seen
[2024-10-10 07:51] LABS: Glucose Point of Care 237 mg/dl (65-105)
[2024-10-10] MEDS: TAMSULOSIN HCL 0.4 MG CAPSULE PO (08:24)
[2024-10-10] MEDS: FAMOTIDINE 20 MG TABLET PO (08:24)
[2024-10-10] MEDS: SPIRONOLACTONE 25 MG TABLET PO (08:24)
[2024-10-10] MEDS: ASPIRIN 81 MG ENTERIC TABLET PO (08:24)
[2024-10-10] MEDS: risperiDONE 0.5 MG TABLET PO ×2 (08:24→12:08)
[2024-10-10] MEDS: busPIRone HCL 10 MG TABLET PO ×3 (08:24→17:57)
[2024-10-10] MEDS: LOSARTAN POTASSIUM 100 MG TABLET PO (08:24)
[2024-10-10] MEDS: AZITHROMYCIN 500 MG/NS 250 ML 500 MG/250 ML BAG 250 MG IVPB (08:25)
[2024-10-10] MEDS: FUROSEMIDE INJ 40 MG/4 ML VIAL IV PUSH (08:25)
[2024-10-10] MEDS: METOPROLOL TARTRATE 50 MG TAB PO ×2 (08:26→21:30)
[2024-10-10] MEDS: INSULIN ASPART (*BKC) 100 UNITS/ML SUB-Q ×4 (08:27→21:31)
[2024-10-10 09:23] LABS: Procalcitonin 0.1 ng/mL
--- NOTE | 2024-10-10 10:44 | P.PNPL_ITS ---
Progress Note: A&P Assessment and Plan (1) COPD exacerbation: Code(s): J44.1 - Chronic obstructive pulmonary disease with (acute) exacerbation Status: Acute Assessment and Plan: Regarding COPD, Patient has a history of tobacco use (25 PY, quit in 1999). Patient has chronic hypercarbic and hypoxemic respiratory failure with multiple admissions to [facility]. CT angiogram on 12/30/2021 with no emphysema. Unable to complete PFTs on 04/02/2023 due to inability to follow directions from his disability. Most recently a blood gas on BiPAP 10/03 was 7.37/78/100. He has been prescribed a BiPAP but has difficulty wearing this at the facility. 3 L nasal cannula with rest, activity and sleep. Inpatient COPD exacerbation 03/08/2023. 02/28/2023, white blood cell count 8.8, eosinophils 1.6% equals 140 per micro L. 05/09/2023 white blood cell count 6.8, eosinophils 3.2% equals 218 per micro L. 10/20/2023 white blood cell count 6.3, eosinophils 2.1%=132/uL. 10/09/24: Is very difficult to get an accurate history from the patient he denies coughing but is coughing in front of me with moist secretions. At this time I will treat him for COPD exacerbation. Plan: I will decrease his Solu-Medrol from 60 mg IV q.6 to 20 mg IV q.6. I will continue albuterol and ipratropium nebulizers q.6 hours. I will start azithromycin 500 IV q.day for possible bronchitis. The patient is on 3 L nasal cannula at rest with activity and sleep and currently is on 3 L with saturations 95%. 10/10/24: Patient tells me he is feeling fine and back to his normal. He denies any fever, chills, cough or phlegm production. His white blood cell count is 11.1, creatinine is 1.0. Currently the patient is on 3 L nasal cannula saturations 91%. Chest x-ray shows left lung consolidation consistent with rotation versus infiltrates. CT scan shows no evidence of pneumonia, resolution of the lingular nodule. Plan: Patient has no wheezing and says he is breathing back at his baseline. I will place the patient on prednisone 40 mg p.o. q.day, I will continue albuterol and ipratropium q.6 hours. I will continue azithromycin, day 2, switch to 250 mg PO Q day. Currently patient is on his baseline oxygen at 3 L. If the patient remains clinically stable overnight consider discharge on 10/11/2024 on these pulmonary medications: Prednisone 40 mg p.o. q.day last dose on 10/12/24 Azithromycin 250 mg PO last dose on 10/13/24. Anoro Ellipta 62.5-25 at 1 puff q.day Rescue albuterol inhaler 2 puffs q.4 hours p.r.n. shortness of breath or wheezing. oxygen at rest and with activity per facilities protocol. Currently the patient is on 3 L nasal cannula at rest with saturations 91%. When patient naps or sleeps: BiPAP backup rate 20, pressures 20/8 and 4 L bleed in. Pulmonary inpatient services will resume on 10/13, call with questions. Discussed with Dr. Sutton. (2) Acute on chronic respiratory failure with hypoxia and hypercapnia: Code(s): J96.21 - Acute and chronic respiratory failure with hypoxia; J96.22 - Acute and chronic respiratory failure with hypercapnia Status: Acute Assessment and Plan: Patient has chronic hypercarbic respiratory failure from his COPD and would benefit from noninvasive ventilation. He has anxiety and he can't tolerate BiPAP when he was in the hospital or previous notes state he can't tolerate BiPAP. Patient would benefit from noninvasive ventilation with an AVAPS-AE mode to prevent disease progression and to prevent subsequent hospitalizations. We will call [facility] to discuss with them how we can accomplish this. They cannot support AVAPS and he is intermittently tolerating BiPAP. 10/09/24: Patient tells me is that he did tolerate a fullface mask with the BiPAP rate of 20, pressures 20/8 inspiratory time 0.75 and a rise of 3 In the hospital last night. As an outpatient we are trying to get the patient refit for full facemask. at this time will place the patient on a BiPAP rate of 20, pressures 20/8, inspiratory time 0.75 and a rise of 3 with an FiO2 of 32% and will obtain an ABG prior to removal and an overnight oximetry on these settings. will attempt to obtain download from ever care living facility as the patient tells me he has been wearing his machine at night every night. 10/10/24: patient tells me he wore the BiPAP full face mask rate 20 pressures 20/8 and 36% FIO2 all night. He says he slept well on the settings felt good. He is an unreliable informant as respiratory note says that he wore the BiPAP from 8:45 p.m. to 130 and then was placed on 3 L. he did wear the BiPAP later on in the morning as the morning nurse says that he was wearing it at 7:30 a.m. and he was comfortable. Overnight oximetry on these settings with a recording duration of 2 hours and 50 minutes with an average saturation 93%, low saturation 87%, time with saturation less than or equal to 88% was 1 minute, oxygen desaturation index 3.4. Patient was off the BiPAP and had a blood gas on 3 L at 4:30 a.m. with pH of 7.41/71/71. Plan: Patient would benefit from noninvasive ventilator. He has not tolerated this in the past and intermittently tolerates this in the hospital with a fullface mask. Tonight we will again attempt to place him on noninvasive ventilator with a BiPAP rate of 20, pressures 20/8 and 4 L bleed in. These settings provided adequate oxygenation per overnight oximetry. If he is able to wear this tonight will get a blood gas prior to removal to assess the ventilation on these settings. If this is unsuccessful he can still be discharged with recommendation of BiPAP backup rate 20, pressures 20/8 and 4 L bleed in. (3) History of DVT (deep vein thrombosis): Code(s): Z86.718 - Personal history of other venous thrombosis and embolism Status: Chronic Assessment and Plan: Patient carries a diagnosis of DVT. The only Doppler studies we have from 12/16/2021 are negative for DVT with bilateral Palacios cysts. Patient remains on Xarelto and will continue this at this time. Subjective Date/time seen: 10/10/24 10:44 Interval history: 10/09/24 New pulmonary consult for COPD exacerbation,hypercarbic resp failure, BIPAP Narrative: 63-year-old with a history of COPD, chronic hypercarbic and hypoxemic respiratory failure on 3 L nasal cannula 24-7 and prescribed BiPAP but he is poorly compliant with this because of mask issues, mentation issues and anxiety. Patient is followed in the Pulmonary Clinic in last seen on 05/08/2024. Regarding COPD, Patient has a history of tobacco use (25 PY, quit in 1999). Patient has chronic hypercarbic and hypoxemic respiratory failure with multiple admissions to [facility]. CT angiogram on 12/30/2021 with no emphysema. Unable to complete PFTs on 04/02/2023 due to inability to follow directions from his disability. Most recently a blood gas on BiPAP 10/03 was 7.37/78/100. He has been prescribed a BiPAP but has difficulty wearing this at the facility. 3 L nasal cannula with rest, activity and sleep. Inpatient COPD exacerbation 03/08/2023. 02/28/2023, white blood cell count 8.8, eosinophils 1.6% equals 140 per micro L. 05/09/2023 white blood cell count 6.8, eosinophils 3.2% equals 218 per micro L. 10/20/2023 white blood cell count 6.3, eosinophils 2.1%=132/uL. Patient has chronic hypercarbic respiratory failure from his COPD and would benefit from noninvasive ventilation. He has anxiety and he can't tolerate BiPAP when he was in the hospital or previous notes state he can't tolerate BiPAP. Patient would benefit from noninvasive ventilation with an AVAPS-AE mode to prevent disease progression and to prevent subsequent hospitalizations. We will call [facility] to discuss with them how we can accomplish this. They cannot support AVAPS and he is intermittently tolerating BiPAP Last seen in the Pulmonary Clinic on 05/08/24: no exacerbations or hospitalizations. Patient is clinically stable on Anoro Ellipta and rescue albuterol using 1 time a day. He walks with a walker. He is not smoking or exposed to secondhand smoke. He is using 3 L with rest, activity and sleep. COPD plan: Continue Anoro Ellipta 1 puff q.day and rescue albuterol Q 4 hours p.r.n. shortness of breath or wheezing. He is scheduled to get the influenza and COVID vaccine This fall. I have encouraged him to increase his activity as tolerated. Goal saturation 90-94%. He is not smoking or exposed to secondhand smoke. regarding his RIKKI: Plan: I have written the note for the patient to have a mask refit with a fullface mask or nasal pillows to see if this will be more comfortable so that this will increase his compliance. 05/08/24: Patient tells me he never had the mask refit that I wrote a note for last time to have a mask refit with a fullface mask or nasal pillows to see if this will be more comfortable so that this will increase his compliance. 05/08/2024: Weight 256. Plan: I have again spoken with the home care administrator and he will pass this on to the nursing staff to have a mask refit. The patient states he is willing to wear a mask if he can have 1 that is not too tight and fits properly. The patient has edema and the forensic social worker will mention this as well as the mask refit to the nurse practitioner who comes on Mondays. 10/07/2024: patient presented to the emergency department on 10/07 with shortness of breath and hypoxemia. EMS records that he was on 4 L with saturations 94-96. White blood cell count was 8.2 with 4.4% eosinophils, creatinine was 1.10, BNP was 153, COVID, influenza, RSV negative. Initial blood gas on 3.5 L nasal cannula 7.34/79/81. Patient was placed on BiPAP with a repeat blood gas 4 hours later of 7.36/83/64. Patient was admitted to the hospital for COPD exacerbation and treated with Solu-Medrol, bronchodilators and also given a dose of IV Lasix. 10/09/2024: patient is unable to give an accurate history given his prior to medic brain injury and poor mentation. When I enter the room he is awake and alert he is on 3 L nasal cannula saturations 95% and no respiratory distress. He is cheerful and tells me he feels back to normal. He denies cough although he is coughing and this is a moist cough with phlegm production. His white blood cell count. 10/10/24: Patient tells me he is feeling fine and back to his normal. He denies any fever, chills, cough or phlegm production. His white blood cell count is 11.1, creatinine is 1.0. Currently the patient is on 3 L nasal cannula saturations 91%. Chest x-ray shows left lung consolidation consistent with rotation versus infiltrates. CT scan shows no evidence of pneumonia, resolution of the lingular nodule. patient tells me he wore the BiPAP full face mask rate 20 pressures 20/8 and 36% FIO2 all night. He says he slept well on the settings felt good. He is an unreliable informant as respiratory note says that he wore the BiPAP from 8:45 p.m. to 130 and then was placed on 3 L. he did wear the BiPAP later on in the morning as the morning nurse says that he was wearing it at 7:30 a.m. and he was comfortable. Overnight oximetry on these settings with a recording duration of 2 hours and 50 minutes with an average saturation 93%, low saturation 87%, time with saturation less than or equal to 88% was 1 minute, oxygen desaturation index 3.4. Patient was off the BiPAP and had a blood gas on 3 L at 4:30 a.m. with pH of 7.41/71/71. DATA: 10/10/24: EXAMINATION:CT diagnostic chest wo con INDICATION: Nodule in lingula. COMPARISON: Chest CT 07/23/2024 FINDINGS: There is mild emphysema. There are calcified pleural plaques on the right. A calcified right lung nodule and calcified right hilar lymph nodes are consistent with old granulomatous disease. There is mild atelectasis in left lower lobe and lingula. No pleural effusion. Cardiomegaly is noted. There are coronary artery calcifications. No pericardial effusion. There is a left chest wall pacer with leads in the right atrium and right ventricle. There are old healed bilateral rib fractures. There is moderate thoracic spondylosis. IMPRESSION: 1. Interval resolution of left-sided pneumonia including the lingular nodule. 2. Mild emphysema. 10/08/24: Summary 1. Technically difficult study with limited views. 2. Left ventricular chamber dimension is normal. 3. There is mildly increased left ventricular wall thickness. 4. Left ventricular systolic function is normal with an estimated ejection fraction of 55-60%. 5. LV not well visualized, cannot comment on wall motion as endocardial definition is limited. 6. Right ventricular chamber dimension is normal. 7. Right ventricular systolic function is normal. 8. Aortic valve is not well visualized. 9. Mitral valve is not well visualized. 10. The tricuspid valve is not well visualized. 11. Pulmonary valve is not well visualized. 12. The aortic root, ascending aorta are not well visualized. Right Ventricle Right ventricular chamber dimension is normal. Right ventricular systolic function is normal. Left Atria Left atrial chamber dimension is normal. Right Atria Right atrial chamber dimension is normal. EXAMINATION: CT diagnostic chest wo con DATE: 07/23/2024 13:31 INDICATION: SOB TECHNIQUE: Computed tomography (CT) of the chest was performed with 100 mL Omnipaque-350 intravenous contrast. Automated exposure control and iterative reconstruction technique were employed. The dose-length product was 870.40 mGy- cm. COMPARISON: 12/17/2021; CTPA 12/30/2021. FINDINGS: CHEST: Thoracic aorta: No significant dilation. Mild aortic calcification. Lung parenchyma and airways: Motion artifact in the lungs. Patent airways. 13 mm left lower lobe pulmonary nodule, medial and inferior lingula (axial image 71). Scattered reticulonodular and centrilobular nodular opacities in the left lung. Thoracic inlet, axillae and chest wall: Left chest pacer with intact leads, terminating in expected position. No thyroid mass. Bilateral gynecomastia. No axillary lymphadenopathy. Mediastinum: No mass or lymphadenopathy. Dilated central pulmonary arteries as can be seen with pulmonary arterial hypertension. Heart and pericardium: Mild cardiomegaly. Aortic valve and mitral calcification. No pericardial effusion. Coronary artery calcifications: Heavy. Pleura: Extensive calcified pleural plaque in the right hemithorax. Upper abdomen: No significant finding. Thoracic bones: No acute osseous finding in the chest. IMPRESSION: New 13 mm pulmonary nodule in the medial lingula. Consider CT follow-up at 3 months, PET/CT, or tissue sampling. Scattered pulmonary opacities in the left lung may represent atypical infection in the appropriate clinical context. Asbestos related pleural disease. ??12/30/2021 EXAMINATION: CTA chest PE protocol ??INDICATION: Respiratory distress. ??Comparison is made to prior examination from 12/17/2021. ??FINDINGS: The main, central pulmonary arteries are dilated which can indicate elevated pulmonary arterial pressure, pulmonary arterial hypertension. ? Pulmonary arteries are well opacified and without intraluminal filling defects. ? No thoracic aortic dissection. There is interval development of small to moderate amount of right-sided upper lobe predominant airspace disease ap pearance most consistent with pneumonia. There is some mucous within the bronchus intermedius, also has developed compared to prior study. Chronic right pleural calcifications unchanged. No mediastinal lymphadenopathy. There is 3 mm right calyceal stone. ??IMPRESSION: ?1.? Development of small to moderate amount of right-sided airspace disease most consistent with pneumonia, less likely asymmetric edema. ??2.? Cardiomegaly, dilated pulmonary arteries. ??3.? No pulmonary emboli. ?12/17/2021 EXAMINATION: CT diagnostic chest wo con ??DATE: 12/17/2021 16:50 ??INDICATION: Chronic opacities of the right mid and lower lung and left lung base. Dense calcified pleural plaques. COMPARISON: CT dated 12/28/2014 ??FINDINGS: Cardiomegaly. No significant pleural or pericardial effusion. There is atherosclerosis of the aorta and coronary arteries. No significant pleural or pericardial effusion. No thoracic lymphadenopathy. There are extensive pleural calcifications of the right lung, likely secondary to previous asbestos exposure or infection. There is chronic bilateral fissural thickening, left greater than right. There is chronic atelectasis/scarring in the lower lobes. There is a 4 mm right upper lobe nodule, image 44, likely benign. There are smaller nodules in the upper lobes. ??IMPRESSION: ??1. Bilateral pulmonary nodules measuring 4 mm or less, likely benign. Consider follow-up low dose CT chest in 12 months. ??2: Chronic infiltrates of the lower lungs which most likely represents atelectasis/scarring. ??3:? Chronic fissural thickening with chronic right pleural calcifications, likely from previous asbestos exposure or infection. 12/28/2014 CT scan of the chest demonstrates left upper lobe dense consolidation lingula and left lower lobe dense consolidative infiltrates.? Extensive pleural calcification on the right lung. ?------ ?12/17/2021 ?Echo summary Summary ??? 1. Technically difficult study with limited views.? Regional wall motion ??assessment limited due to poor endomyocardial border definition despite ??definity contrast enhancement. ??? 2. Left ventricular chamber dimension is mildly enlarged. ??? 3. Left ventricular systolic function is mild to moderately reduced, ??estimated at 40-45%. ??? 4. There is moderately increased left ventricular wall thickness. ??? 5. Left ventricular septal wall motion is abnormal with septal motion ??related to pacing. ??? 6. The left ventricular diastolic function is abnormal. ??? 7. There is no aortic valve stenosis. ??? 8. There is trace tricuspid valve regurgitation. ??? 9. Mild pulmonary hypertension, estimated pulmonary arterial systolic ??pressure is 40 mmHg. ??? 10. There is trace mitral valve regurgitation. ?Right Ventricle ??? Right ventricular chamber dimension is normal. ??? Right ventricular systolic function is normal. ??? Linear artifact in right ventricle suggestive of catheter(s), pacemaker ??lead(s), or ICD lead(s). ??Right Atria. ? Right atrial chamber dimension is moderately enlarged. ? ?10/19/2005.? CPAP titration:? Impression:? Adequate correction of respiratory events with CPAP at 10.? It was noted during the study that his oxygen saturation remained marginal in the recommendation was 2 L oxygen to be added.? Review of Systems Review of Systems: ROS unobtainable: Yes unobtainable due to mental status Exam Const: General: cooperative, healthy appearing and comfortable Orientation/consciousness: oriented to person, oriented to place and oriented to time HENMT: Head: normal to inspection Ears: hearing grossly normal bilaterally Eyes: General: appearance normal, both eyes and all related structures Neck: Neck: normal visual inspection Chest: Chest palpation & inspection: normal inspection of the chest Resp: Effort & Inspection: normal respiratory effort and able to speak in complete sentences Auscultation: no crackles, rales, no rhonchi, no wheezes and lung sounds not diminished Cardio: Jugular venous distension: no JVD GI: Inspection: normal to inspection Skin: General skin exam: normal color Neuro: General: oriented to person, oriented to place and oriented to time Extrem: General: normal to inspection and edema Psych: Appearance: grossly normal Objective Data Vital Signs Vital Signs: Vital Signs - 24 hr 10/09/24 11:21 10/09/24 11:39 10/09/24 11:48 Temperature 37.5 C Pulse Rate 68 74 68 Respiratory Rate 22 H 20 20 Blood Pressure 132/91 H Pulse Oximetry 94 Oxygen Delivery Oxygen Flow Rate 10/09/24 15:04 10/09/24 15:11 10/09/24 20:00 Temperature Pulse Rate 64 61 Respiratory Rate 20 20 Blood Pressure Pulse Oximetry 93 Oxygen Delivery Nasal Cannula Oxygen Flow Rate 3 10/09/24 20:45 10/09/24 20:53 10/09/24 20:54 Temperature Pulse Rate 91 Respiratory Rate 24 H 20 Blood Pressure Pulse Oximetry 91 Oxygen Delivery BiPAP Nasal Cannula Oxygen Flow Rate 3 10/09/24 21:03 10/09/24 22:00 10/09/24 22:40 Temperature 37.1 C Pulse Rate 95 90 Respiratory Rate 20 24 H Blood Pressure 125/86 Pulse Oximetry 93 92 Oxygen Delivery Nasal Cannula Oxygen Flow Rate 3 10/10/24 02:22 10/10/24 02:32 10/10/24 05:45 Temperature 36.4 C Pulse Rate 82 84 82 Respiratory Rate 20 20 22 H Blood Pressure 144/93 H Pulse Oximetry 95 Oxygen Delivery Oxygen Flow Rate 10/10/24 08:17 10/10/24 08:17 10/10/24 08:26 Temperature Pulse Rate 90 80 Respiratory Rate 95 H Blood Pressure Pulse Oximetry 95 Oxygen Delivery Nasal Cannula Oxygen Flow Rate 3 10/10/24 08:35 Temperature Pulse Rate 84 Respiratory Rate 20 Blood Pressure Pulse Oximetry Oxygen Delivery Oxygen Flow Rate Intake/Output Intake/Output: Intake & Output 10/07/24 10/08/24 10/09/24 10/10/24 23:59 23:59 23:59 23:59 Intake Total 760 2190 768 Output Total 800 300 500 Balance -40 1890 268 Meds/Results Medications: Active Medications Generic Name Dose Route Start Last Admin Trade Name Freq PRN Reason Stop Dose Admin Albuterol 2.5 mg 10/08/24 08:22 Albuterol Sulfate Neb 2.5 Mg/3 Ml Inh INHALATION Q4HRT PRN Shortness Of Breath Or Wheezing Albuterol/Ipratropium 3 ml 10/08/24 08:00 10/10/24 08:17 Ipratropium 0.5 Mg/Albuterol Sulfate 2.5 Mg Ampul.Neb 3 Ml INHALATION 3 ml Q6HRT ANURADHA Administration Aspirin 81 mg 10/08/24 09:00 10/10/24 08:24 Aspirin 81 Mg Enteric Tablet PO 81 mg QAM ANURADHA Administration Atorvastatin Calcium 40 mg 10/08/24 21:00 10/09/24 22:10 Atorvastatin 40 Mg Tablet PO 40 mg HS ANURADHA Administration Buspirone HCl 10 mg 10/08/24 09:00 10/10/24 08:24 Buspirone Hcl 10 Mg Tablet PO 10 mg TID ANURADHA Administration Dextrose 12.5 gm 10/09/24 13:14 Dextrose 50% 25 Gm/50 Ml Syringe IV PUSH PRN PRN Hypoglycemia Protocol Famotidine 20 mg 10/08/24 09:00 10/10/24 08:24 Famotidine 20 Mg Tablet PO 20 mg DAILY ANURADHA Administration Furosemide 40 mg 10/08/24 09:00 10/10/24 08:25 Furosemide Inj 40 Mg/4 Ml Vial IV PUSH 40 mg DAILY ANURADHA Administration Gabapentin 400 mg 10/08/24 21:00 10/09/24 22:10 Gabapentin 400 Mg Capsule PO 400 mg QHS ANURADHA Administration Glucagon 1 mg 10/09/24 13:14 Glucagon For Inj 1 Mg Vial IM PRN PRN Hypoglycemia Protocol Glucose 15 gm 10/09/24 13:14 Glucose Oral Gel 15 Gm Of Glucse In 37.5 Gm Tube PO PRN PRN Hypoglycemia Protocol Azithromycin 500 mg in 250 mls @ 250 mls/hr 10/09/24 13:15 10/10/24 08:25 Zithromax IVPB 250 mls/hr DAILY ANURADHA Administration Dextrose 1,000 mls @ 100 mls/hr 10/09/24 13:14 Dextrose 5% 1,000 Ml IVPB PRN PRN Hypoglycemia Protocol Insulin Aspart 9 units 10/08/24 12:00 10/09/24 17:31 Insulin Aspart (*Bkc) 100 Units/Ml SUB-Q 9 units 1200,1700 ANURADHA Administration Insulin Aspart 2 - 5 units 10/09/24 17:00 10/10/24 08:27 Insulin Aspart (*Bkc) 100 Units/Ml SUB-Q 2 units TIDWM ANURADHA Administration Protocol Insulin Aspart 1 - 2 units 10/09/24 21:00 10/09/24 22:06 Insulin Aspart (*Bkc) 100 Units/Ml SUB-Q Not Given HS [facility] Protocol Insulin Glargine 28 units 10/08/24 21:00 10/09/24 22:12 Insulin Glargine (*Bkc) 100 Units/Ml SUB-Q 28 units QHS ANURADHA Administration Losartan Potassium 100 mg 10/08/24 09:00 10/10/24 08:24 Losartan Potassium 100 Mg Tablet PO 100 mg DAILY [facility] Administration Methylprednisolone Sodium Succinate 20 mg 10/09/24 18:00 10/10/24 05:39 Methylprednisolone Sod Succ 40 Mg Vial IV PUSH 20 mg Q6HR ANURADHA Administration Metoprolol Tartrate 50 mg 10/08/24 09:00 10/10/24 08:26 Metoprolol Tartrate 50 Mg Tab PO 50 mg Q12HR ANURADHA Administration Ondansetron HCl 4 mg 10/08/24 05:00 Ondansetron Inj 4 Mg/2 Ml Vial IV PUSH Q4H PRN Nausea Perflutren Lipid Microsphere 0 ml 10/08/24 08:22 Perflutren Lipid Microspheres 1.5 Ml Vial Diluted To 10 Ml Total Volume IV PUSH 10/11/24 08:24 ONCE PRN adequate visualization Protocol Polyethylene Glycol 17 gm 10/08/24 08:11 Polyethylene Glycol 3350 17 Gm Powd.Pack PO DAILY PRN Constipation Risperidone 0.5 mg 10/08/24 08:15 10/10/24 08:24 Risperidone 0.5 Mg Tablet PO 0.5 mg 0800,1200 [facility] [facility] Administration Rivaroxaban 20 mg 10/08/24 17:00 10/09/24 17:11 Rivaroxaban 20 Mg Tablet PO 20 mg DAILY@1700 [facility] Administration Senna/Docusate Sodium 1 tab 10/08/24 08:11 10/09/24 22:10 Senna/Docusate Sodium Tablet PO 1 tab BID PRN Administration Constipation Spironolactone 25 mg 10/08/24 09:00 10/10/24 08:24 Spironolactone 25 Mg Tablet PO 25 mg QAM ANURADHA Administration Tamsulosin HCl 0.4 mg 10/08/24 09:00 10/10/24 08:24 Tamsulosin Hcl 0.4 Mg Capsule PO 0.4 mg DAILY ANURADHA Administration Tramadol HCl 50 mg 10/08/24 08:16 Tramadol Hcl (*Crx) 50 Mg Tablet PO Q6H PRN Pain Trazodone HCl 25 mg 10/08/24 21:00 10/09/24 22:11 Trazodone Hcl 25 Mg Tablet PO 25 mg HS ANURADHA Administration Radiology Results: ITS Impressions Chest X-Ray 10/10/24 07:09 IMPRESSION: 1. Stable appearance of pleural parenchymal scarring at the right lung base with extensive unilateral calcified pleural plaques in the right mid and lower lung zone likely sequela of chronic exudative effusion. 2. No definitive acute cardiopulmonary disease. Assessment is limited in the left mid and lower lung by cardiomegaly with prominent left paracardial fat pad accentuated by leftward rotation of the patient and could not exclude superimposed atelectasis or pneumonia. Labs Labs: Laboratory Results - last 24 hr 10/09/24 10/09/24 10/10/24 17:18 20:48 04:33 WBC RBC Hgb Hct MCV MCH MCHC RDW Plt Count MPV Immature Gran % (Auto) Neut % (Auto) Lymph % (Auto) [place] % (Auto) Eos % (Auto) Baso % (Auto) Lymph # (Auto) [place] # (Auto) Eos # (Auto) Baso # (Auto) Abs Immat Gran (auto) Absolute Neuts (auto) Absolute Nucleated RBC Nucleated RBC % Platelet Estimate Anisocytosis Schistocytes Puncture Site Left radial ABG pH 7.410 ABG pCO2 70.5 H* ABG pO2 70.2 L ABG PO2/FiO2 Ratio 3.34 ABG HCO3 43.7 H ABG O2 Saturation 93.5 L ABG O2 Content 15.4 L ABG Base Excess 16.0 A-a Gradient Not Reportable Oxyhemoglobin 93.1 Total Hemoglobin 11.7 L O2 Delivery Device Nasal cannula O2 Liters/Min 3.0 FiO2 21 Sodium Potassium Chloride Carbon Dioxide Anion Gap BUN Creatinine Estim Creat Clear Calc Estimated GFR Glucose POC Capillary Glucose 341 H 195 H Calcium Total Bilirubin AST ALT Alkaline Phosphatase Total Protein Albumin Procalcitonin 10/10/24 10/10/24 05:54 07:40 WBC 11.1 H RBC 3.45 L Hgb 10.4 L Hct 34.8 L MCV 100.9 H MCH 30.1 MCHC 29.9 L RDW 13.8 Plt Count 173 MPV 10.0 Immature Gran % (Auto) 0.6 H Neut % (Auto) 86.3 H Lymph % (Auto) 4.6 L [place] % (Auto) 8.4 Eos % (Auto) 0.0 Baso % (Auto) 0.1 L Lymph # (Auto) 0.51 L [place] # (Auto) 0.9 H Eos # (Auto) 0.0 Baso # (Auto) 0.0 Abs Immat Gran (auto) 0.07 H Absolute Neuts (auto) 9.6 H Absolute Nucleated RBC 0.000 Nucleated RBC % 0.0 Platelet Estimate Adequate Anisocytosis 1+ Schistocytes None seen Puncture Site ABG pH ABG pCO2 ABG pO2 ABG PO2/FiO2 Ratio ABG HCO3 ABG O2 Saturation ABG O2 Content ABG Base Excess A-a Gradient Oxyhemoglobin Total Hemoglobin O2 Delivery Device O2 Liters/Min FiO2 Sodium 142 Potassium 4.8 Chloride 96 L Carbon Dioxide > 40 H Anion Gap BUN 44 H Creatinine 1.00 Estim Creat Clear Calc 72 Estimated GFR > 60 Glucose 240 H POC Capillary Glucose 237 H Calcium 8.9 Total Bilirubin 0.5 AST 31 ALT 24 Alkaline Phosphatase 73 Total Protein 7.0 Albumin 3.6 Procalcitonin 0.1
[2024-10-10 11:21] LABS: Glucose Point of Care 375 mg/dl (65-105)
[2024-10-10] MEDS: predniSONE 20 MG TABLET 40 MG PO (12:07)
[2024-10-10] MEDS: INSULIN ASPART (*BKC) 100 UNITS/ML 9 UNITS SUB-Q (12:08)
--- NOTE | 2024-10-10 12:49 | PM.IMPN ---
Progress Note: A&P Assessment and Plan (1) Acute on chronic respiratory failure with hypoxia and hypercapnia: Code(s): J96.21 - Acute and chronic respiratory failure with hypoxia; J96.22 - Acute and chronic respiratory failure with hypercapnia Status: Acute Assessment and Plan: - Likely related to COPD Exacerbation and possibly CHF Exacerbation. - Seen by hand endband cutter and recommendations noted. prednisone 40 mg p.o. q.day last dose on 10/12/24 Azithromycin 250 mg PO last dose on 10/13/24. Anoro Ellipta 62.5-25 at 1 puff q.day Rescue albuterol inhaler 2 puffs q.4 hours p.r.n. shortness of breath or wheezing. oxygen at rest and with activity per facilities protocol. Currently the patient is on 3 L nasal cannula at rest with saturations 91%. When patient naps or sleeps: BiPAP backup rate 20, pressures 20/8 and 4 L bleed in. (2) Acute exacerbation of chronic obstructive pulmonary disease: Code(s): J44.1 - Chronic obstructive pulmonary disease with (acute) exacerbation Status: Acute Assessment and Plan: - Mgt as above. - Continue supplemental O2 for sats > 90 %; now on 3L/NC which is his baseline. - Continue scheduled bronchodilators. (3) Pulmonary edema: Code(s): J81.1 - Chronic pulmonary edema Status: Acute Assessment and Plan: - Continue IV diuresis. - Continue weight and I & O's monitoring. - Continue supplemental O2 for sats > 90 %. (4) Paroxysmal atrial fibrillation: Code(s): I48.0 - Paroxysmal atrial fibrillation Status: Acute Assessment and Plan: - Rate well controlled. - Continue Rivaroxaban and metoprolol. (5) History of DVT (deep vein thrombosis): Code(s): Z86.718 - Personal history of other venous thrombosis and embolism Status: Chronic Assessment and Plan: - Continue Rivaroxaban. (6) Insulin dependent diabetes mellitus: Status: Chronic Assessment and Plan: - Blood-glucose levels trending high possibly due to steroids use. - Insulin slightly adjusted. - Continue to adjust insulin as needed for optimal control. (7) Combined systolic and diastolic congestive heart failure: Code(s): I50.40 - Unspecified combined systolic (congestive) and diastolic (congestive) heart failure Status: Acute Assessment and Plan: - Left ventricular systolic function is normal with an estimated ejection fraction of 55-60%. LV not well visualized, cannot comment on wall motion as endocardial - Continue lasix IV diuresis and Spironolactone. - Continue to monitor weight and I & O's. - Continue supplemental O2 for sats > 90%, now on 3L/NC. (8) Coronary artery disease: Code(s): I25.10 - Atherosclerotic heart disease of [place] coronary artery without angina pectoris Status: Acute Assessment and Plan: - Stable. - Continue aspirin, metoprolol, losartan and statin. (9) Bipolar disorder: Code(s): F31.9 - Bipolar disorder, unspecified Status: Chronic Assessment and Plan: - Continue Buspirone and risperidone. Time Spent With Patient Time with patient: 25 - 35 minutes Subjective Date/time seen: 10/10/24 12:49 Patient states he's tired of staying in the hospital and wants to go home. Interval history: Patient seated in tripod position bedside, noted with conversational dyspnea. Review of Systems Review of Systems: All systems reviewed & are unremarkable except as noted in HPI and below Exam Narrative: GENERAL: Conversational dyspnea. Morbid obesity - EYES: EOMI. Anicteric. - HENT: Moist mucous membranes. - LUNGS: Diminished breath sounds, tachypnea, coarse breath sounds bilateral base - CARDIOVASCULAR: Regular rate and rhythm. No murmurs. No JVD. - ABDOMEN: Soft, non-tender and non-distended. - EXTREMITIES: No edema. Peripheral pulses 2+. Non-tender. - NEUROLOGIC: No focal neurological deficits. CN II-XII grossly intact. - PSYCHIATRIC: Awake, Alert and oriented x 3. Appropriate mood and affect. - SKIN: No rashes or lesions. Warm. Objective Data Vital Signs Vital Signs: Vital Signs - 24 hr 10/09/24 15:04 10/09/24 15:11 10/09/24 20:00 Temperature Pulse Rate 64 61 Respiratory Rate 20 20 Blood Pressure Pulse Oximetry 93 Oxygen Delivery Nasal Cannula Oxygen Flow Rate 3 10/09/24 20:45 10/09/24 20:53 10/09/24 20:54 Temperature Pulse Rate 91 Respiratory Rate 24 H 20 Blood Pressure Pulse Oximetry 91 Oxygen Delivery BiPAP Nasal Cannula Oxygen Flow Rate 3 10/09/24 21:03 10/09/24 22:00 10/09/24 22:40 Temperature 98.8 F Pulse Rate 95 90 Respiratory Rate 20 24 H Blood Pressure 125/86 Pulse Oximetry 93 92 Oxygen Delivery Nasal Cannula Oxygen Flow Rate 3 10/10/24 02:22 10/10/24 02:32 10/10/24 05:45 Temperature 97.6 F Pulse Rate 82 84 82 Respiratory Rate 20 20 22 H Blood Pressure 144/93 H Pulse Oximetry 95 Oxygen Delivery Oxygen Flow Rate 10/10/24 08:17 10/10/24 08:17 10/10/24 08:26 Temperature Pulse Rate 90 80 Respiratory Rate 95 H Blood Pressure Pulse Oximetry 95 Oxygen Delivery Nasal Cannula Oxygen Flow Rate 3 10/10/24 08:35 Temperature Pulse Rate 84 Respiratory Rate 20 Blood Pressure Pulse Oximetry Oxygen Delivery Oxygen Flow Rate Intake/Output Intake/Output: Intake & Output 10/07/24 10/08/24 10/09/24 10/10/24 23:59 23:59 23:59 23:59 Intake Total 760 2190 1005 Output Total 800 300 775 Balance -40 1890 230 Meds/Results Medications: Active Medications Generic Name Dose Route Start Last Admin Trade Name Freq PRN Reason Stop Dose Admin Albuterol 2.5 mg 10/08/24 08:22 Albuterol Sulfate Neb 2.5 Mg/3 Ml Inh INHALATION Q4HRT PRN Shortness Of Breath Or Wheezing Albuterol/Ipratropium 3 ml 10/08/24 08:00 10/10/24 08:17 Ipratropium 0.5 Mg/Albuterol Sulfate 2.5 Mg Ampul.Neb 3 Ml INHALATION 3 ml Q6HRT ANURADHA Administration Aspirin 81 mg 10/08/24 09:00 10/10/24 08:24 Aspirin 81 Mg Enteric Tablet PO 81 mg QAM ANURADHA Administration Atorvastatin Calcium 40 mg 10/08/24 21:00 10/09/24 22:10 Atorvastatin 40 Mg Tablet PO 40 mg HS ANURADHA Administration Azithromycin 250 mg 10/11/24 09:00 Azithromycin 250 Mg Tablet PO 10/14/24 09:01 DAILY ANURADHA Buspirone HCl 10 mg 10/08/24 09:00 10/10/24 12:07 Buspirone Hcl 10 Mg Tablet PO 10 mg TID ANURADHA Administration Dextrose 12.5 gm 10/09/24 13:14 Dextrose 50% 25 Gm/50 Ml Syringe IV PUSH PRN PRN Hypoglycemia Protocol Famotidine 20 mg 10/08/24 09:00 10/10/24 08:24 Famotidine 20 Mg Tablet PO 20 mg DAILY ANURADHA Administration Furosemide 40 mg 10/08/24 09:00 10/10/24 08:25 Furosemide Inj 40 Mg/4 Ml Vial IV PUSH 40 mg DAILY ANURADHA Administration Gabapentin 400 mg 10/08/24 21:00 10/09/24 22:10 Gabapentin 400 Mg Capsule PO 400 mg QHS ANURADHA Administration Glucagon 1 mg 10/09/24 13:14 Glucagon For Inj 1 Mg Vial IM PRN PRN Hypoglycemia Protocol Glucose 15 gm 10/09/24 13:14 Glucose Oral Gel 15 Gm Of Glucse In 37.5 Gm Tube PO PRN PRN Hypoglycemia Protocol Dextrose 1,000 mls @ 100 mls/hr 10/09/24 13:14 Dextrose 5% 1,000 Ml IVPB PRN PRN Hypoglycemia Protocol Insulin Aspart 9 units 10/08/24 12:00 10/10/24 12:08 Insulin Aspart (*Bkc) 100 Units/Ml SUB-Q 9 units 1200,1700 ANURADHA Administration Insulin Aspart 2 - 5 units 10/09/24 17:00 10/10/24 12:08 Insulin Aspart (*Bkc) 100 Units/Ml SUB-Q 4 units TIDWM ANURADHA Administration Protocol Insulin Aspart 1 - 2 units 10/09/24 21:00 10/09/24 22:06 Insulin Aspart (*Bkc) 100 Units/Ml SUB-Q Not Given HS ANURADHA Protocol Insulin Glargine 28 units 10/08/24 21:00 10/09/24 22:12 Insulin Glargine (*Bkc) 100 Units/Ml SUB-Q 28 units QHS ANURADHA Administration Losartan Potassium 100 mg 10/08/24 09:00 10/10/24 08:24 Losartan Potassium 100 Mg Tablet PO 100 mg DAILY ANURADHA Administration Metoprolol Tartrate 50 mg 10/08/24 09:00 10/10/24 08:26 Metoprolol Tartrate 50 Mg Tab PO 50 mg Q12HR ANURADHA Administration Ondansetron HCl 4 mg 10/08/24 05:00 Ondansetron Inj 4 Mg/2 Ml Vial IV PUSH Q4H PRN Nausea Perflutren Lipid Microsphere 0 ml 10/08/24 08:22 Perflutren Lipid Microspheres 1.5 Ml Vial Diluted To 10 Ml Total Volume IV PUSH 10/11/24 08:24 ONCE PRN adequate visualization Protocol Polyethylene Glycol 17 gm 10/08/24 08:11 Polyethylene Glycol 3350 17 Gm Powd.Pack PO DAILY PRN Constipation Prednisone 40 mg 10/10/24 11:05 10/10/24 12:07 Prednisone 20 Mg Tablet PO 40 mg DAILY@0800 ANURADHA Administration Risperidone 0.5 mg 10/08/24 08:15 10/10/24 12:08 Risperidone 0.5 Mg Tablet PO 0.5 mg 0800,1200 ANURADHA Administration Rivaroxaban 20 mg 10/08/24 17:00 10/09/24 17:11 Rivaroxaban 20 Mg Tablet PO 20 mg DAILY@1700 ANURADHA Administration Senna/Docusate Sodium 1 tab 10/08/24 08:11 10/09/24 22:10 Senna/Docusate Sodium Tablet PO 1 tab BID PRN Administration Constipation Spironolactone 25 mg 10/08/24 09:00 10/10/24 08:24 Spironolactone 25 Mg Tablet PO 25 mg QAM ANURADHA Administration Tamsulosin HCl 0.4 mg 10/08/24 09:00 10/10/24 08:24 Tamsulosin Hcl 0.4 Mg Capsule PO 0.4 mg DAILY ANURADHA Administration Tramadol HCl 50 mg 10/08/24 08:16 Tramadol Hcl (*Crx) 50 Mg Tablet PO Q6H PRN Pain Trazodone HCl 25 mg 10/08/24 21:00 10/09/24 22:11 Trazodone Hcl 25 Mg Tablet PO 25 mg HS ANURADHA Administration Radiology Results: ITS Impressions Chest X-Ray 10/10/24 07:09 IMPRESSION: 1. Stable appearance of pleural parenchymal scarring at the right lung base with extensive unilateral calcified pleural plaques in the right mid and lower lung zone likely sequela of chronic exudative effusion. 2. No definitive acute cardiopulmonary disease. Assessment is limited in the left mid and lower lung by cardiomegaly with prominent left paracardial fat pad accentuated by leftward rotation of the patient and could not exclude superimposed atelectasis or pneumonia. Labs Labs: Laboratory Results - last 24 hr 10/09/24 10/09/24 10/10/24 17:18 20:48 04:33 WBC RBC Hgb Hct MCV MCH MCHC RDW Plt Count MPV Immature Gran % (Auto) Neut % (Auto) Lymph % (Auto) [place] % (Auto) Eos % (Auto) Baso % (Auto) Lymph # (Auto) [place] # (Auto) Eos # (Auto) Baso # (Auto) Abs Immat Gran (auto) Absolute Neuts (auto) Absolute Nucleated RBC Nucleated RBC % Platelet Estimate Anisocytosis Schistocytes Puncture Site Left radial ABG pH 7.410 ABG pCO2 70.5 H* ABG pO2 70.2 L ABG PO2/FiO2 Ratio 3.34 ABG HCO3 43.7 H ABG O2 Saturation 93.5 L ABG O2 Content 15.4 L ABG Base Excess 16.0 A-a Gradient Not Reportable Oxyhemoglobin 93.1 Total Hemoglobin 11.7 L O2 Delivery Device Nasal cannula O2 Liters/Min 3.0 FiO2 21 Sodium Potassium Chloride Carbon Dioxide Anion Gap BUN Creatinine Estim Creat Clear Calc Estimated GFR Glucose POC Capillary Glucose 341 H 195 H Calcium Total Bilirubin AST ALT Alkaline Phosphatase Total Protein Albumin Procalcitonin 10/10/24 10/10/24 10/10/24 05:54 07:40 11:15 WBC 11.1 H RBC 3.45 L Hgb 10.4 L Hct 34.8 L MCV 100.9 H MCH 30.1 MCHC 29.9 L RDW 13.8 Plt Count 173 MPV 10.0 Immature Gran % (Auto) 0.6 H Neut % (Auto) 86.3 H Lymph % (Auto) 4.6 L [place] % (Auto) 8.4 Eos % (Auto) 0.0 Baso % (Auto) 0.1 L Lymph # (Auto) 0.51 L [place] # (Auto) 0.9 H Eos # (Auto) 0.0 Baso # (Auto) 0.0 Abs Immat Gran (auto) 0.07 H Absolute Neuts (auto) 9.6 H Absolute Nucleated RBC 0.000 Nucleated RBC % 0.0 Platelet Estimate Adequate Anisocytosis 1+ Schistocytes None seen Puncture Site ABG pH ABG pCO2 ABG pO2 ABG PO2/FiO2 Ratio ABG HCO3 ABG O2 Saturation ABG O2 Content ABG Base Excess A-a Gradient Oxyhemoglobin Total Hemoglobin O2 Delivery Device O2 Liters/Min FiO2 Sodium 142 Potassium 4.8 Chloride 96 L Carbon Dioxide > 40 H Anion Gap BUN 44 H Creatinine 1.00 Estim Creat Clear Calc 72 Estimated GFR > 60 Glucose 240 H POC Capillary Glucose 237 H 375 H Calcium 8.9 Total Bilirubin 0.5 AST 31 ALT 24 Alkaline Phosphatase 73 Total Protein 7.0 Albumin 3.6 Procalcitonin 0.1 Quality VTE Prophylaxis VTE prophylaxis: pharmacologic ordered Hospitalist MIPS Advance Care Plan I have confirmed that the patient's Advanced Care Plan is present, code status is documented, or surrogate decision maker is listed in patient medical record.: Yes Medication Reconciliation I have utilized all available resources to obtain, update and review the patients current medications (includes all prescriptions, OTC, herbals, cannabis, and nutritional supplements).: Yes
--- NOTE | 2024-10-10 15:47 | IVDEFINITY ---
Prior to administration of IV Definity the patient was educated on the risks and benefits of the imaging enhancing agent including potential adverse side effects. The patient verbalized understanding. Allergies were verified. No exclusion criteria were identified and at least one of the following inclusion criteria were met: 1) physician request, 2) patient technically difficult to image (per the [place] [employer] guidelines of two or more segments not discernable within the apical view), or 3) questionable left ventricular function. ?
[2024-10-10 16:30] LABS: Glucose Point of Care 296 mg/dl (65-105)
[2024-10-10] MEDS: RIVAROXABAN 20 MG TABLET PO (17:57)
[2024-10-10] MEDS: INSULIN ASPART (*BKC) 100 UNITS/ML 12 UNITS SUB-Q (17:58)
[2024-10-10 20:04] LABS: Glucose Point of Care 315 mg/dl (65-105)
[2024-10-10] MEDS: GABAPENTIN 400 MG CAPSULE PO (21:30)
[2024-10-10] MEDS: ATORVASTATIN 40 MG TABLET PO (21:30)
[2024-10-10] MEDS: traZODone HCL 25 MG TABLET PO (21:30)
[2024-10-10] MEDS: INSULIN GLARGINE (*BKC) 100 UNITS/ML 28 UNITS SUB-Q (21:32)
[2024-10-10 21:58] LABS: IFOB Positive Control Positive; Immunochemical Fecal Occult Bl Negative (N)
[2024-10-10 22:53] LABS: MRSA (PCR) NOT DETECTED (NOT DETECTE)
[2024-10-11] VITALS (9 sets, daily range): BP systolic 140–141; BP diastolic 80–95; PULSE 100–118; RESP 18–32; TEMP 36.2–36.4; O2SAT 92–100
[2024-10-11] MEDS: IPRATROPIUM 0.5 MG/ALBUTEROL SULFATE 2.5 MG AMPUL.NEB 3 ML INHALATION ×3 (02:57→14:15)
[2024-10-11 05:02] LABS: Alveolar/Arterial O2 Gradient 98.9 mmHg; Base Excess ABG 14.2 mEq/l (+/-2.0); Fractional Inspired Oxygen 36 %; HCO3 ABG 41.3 mEq/l (22.0-26.0); Oxygen Content ABG 17.2 %vol (16.0-22.0); Oxygen Saturation ABG 96.1 % (95.0-100.0); Oxyhemoglobin 96.1 % THb (90.0-100.0); PO2 ABG 83.5 mmHg (80.0-100.0); PO2 FiO2 Ratio Arterial Blood 2.32 %; Total Hemoglobin 12.7 g/dL (12.0-18.0); pH ABG 7.428 (7.350-7.450)
[2024-10-11 05:07] LABS: Modified Allen's Test Pass; Site Drawn LEFT RADIAL
[2024-10-11 05:08] LABS: Device NON-INVASIVE VENT; Non-Invasive Expiratory Pressure 8 CMH2O; Non-Invasive Inspiratory Pressure 20 CMH2O; Non-Invasive Vent Rate 20 /MIN
[2024-10-11 08:16] LABS: Glucose Point of Care 168 mg/dl (65-105)
[2024-10-11] MEDS: SPIRONOLACTONE 25 MG TABLET PO (08:54)
[2024-10-11] MEDS: LOSARTAN POTASSIUM 100 MG TABLET PO (08:54)
[2024-10-11] MEDS: TAMSULOSIN HCL 0.4 MG CAPSULE PO (08:54)
[2024-10-11] MEDS: FUROSEMIDE INJ 40 MG/4 ML VIAL IV PUSH (08:54)
[2024-10-11] MEDS: AZITHROMYCIN 250 MG TABLET PO (08:54)
[2024-10-11] MEDS: ASPIRIN 81 MG ENTERIC TABLET PO (08:54)
[2024-10-11] MEDS: FAMOTIDINE 20 MG TABLET PO (08:55)
[2024-10-11] MEDS: METOPROLOL TARTRATE 50 MG TAB PO (08:55)
[2024-10-11] MEDS: risperiDONE 0.5 MG TABLET PO ×2 (08:55→12:37)
[2024-10-11] MEDS: predniSONE 20 MG TABLET 40 MG PO (08:55)
[2024-10-11] MEDS: busPIRone HCL 10 MG TABLET PO ×3 (08:55→17:04)
[2024-10-11 11:45] LABS: Glucose Point of Care 290 mg/dl (65-105)
--- NOTE | 2024-10-11 12:29 | P.DS_ITS ---
DS: Admitting Diagnosis Discharge Date 10/11/24 Admitting Diagnosis COPD Exacerbation DS: Discharge Diagnosis Discharge Diagnosis (1) Acute on chronic respiratory failure with hypoxia and hypercapnia: Code(s): J96.21 - Acute and chronic respiratory failure with hypoxia; J96.22 - Acute and chronic respiratory failure with hypercapnia Status: Acute Assessment and Plan: - Likely related to COPD Exacerbation and possibly CHF Exacerbation. - Seen by photo mask pattern generator and recommendations noted. prednisone 40 mg p.o. q.day last dose on 10/12/24 Azithromycin 250 mg PO last dose on 10/13/24. Anoro Ellipta 62.5-25 at 1 puff q.day Rescue albuterol inhaler 2 puffs q.4 hours p.r.n. shortness of breath or wheezing. oxygen at rest and with activity per facilities protocol. Currently the patient is on 3 L nasal cannula at rest with saturations 91%. When patient naps or sleeps: BiPAP backup rate 20, pressures 20/8 and 4 L bleed in. (2) Acute exacerbation of chronic obstructive pulmonary disease: Code(s): J44.1 - Chronic obstructive pulmonary disease with (acute) exacerbation Status: Acute Assessment and Plan: - Mgt as above. - Continue supplemental O2 for sats > 90 %; now on 3L/NC which is his baseline. - Continue scheduled bronchodilators and PO steroids. (3) Pulmonary edema: Code(s): J81.1 - Chronic pulmonary edema Status: Acute Assessment and Plan: - Continue 40 mg Lasix at home. - Continue weight and I & O's monitoring. - Continue supplemental O2 for sats > 90 %. (4) Paroxysmal atrial fibrillation: Code(s): I48.0 - Paroxysmal atrial fibrillation Status: Acute Assessment and Plan: - Rate well controlled. - Continue Rivaroxaban and metoprolol. (5) History of DVT (deep vein thrombosis): Code(s): Z86.718 - Personal history of other venous thrombosis and embolism Status: Chronic Assessment and Plan: - Continue Rivaroxaban. (6) Insulin dependent diabetes mellitus: Status: Chronic Assessment and Plan: - Blood-glucose levels trending high possibly due to steroids use. - Insulin slightly adjusted. - Continue to adjust insulin as needed for optimal control. (7) Combined systolic and diastolic congestive heart failure: Code(s): I50.40 - Unspecified combined systolic (congestive) and diastolic (congestive) heart failure Status: Acute Assessment and Plan: - Left ventricular systolic function is normal with an estimated ejection fraction of 55-60%. LV not well visualized, cannot comment on wall motion as endocardial - Continue oral lasix and Spironolactone. - Continue to monitor weight and I & O's. - Continue supplemental O2 for sats > 90%, now on 3L/NC. (8) Coronary artery disease: Code(s): I25.10 - Atherosclerotic heart disease of [place] coronary artery without angina pectoris Status: Acute Assessment and Plan: - Stable. - Continue aspirin, metoprolol, losartan and statin. (9) Bipolar disorder: Code(s): F31.9 - Bipolar disorder, unspecified Status: Chronic Assessment and Plan: - Continue Buspirone and risperidone. DS: Summary Hospital Course Reason for hospitalization: COPD Exacerbation Hospital Course: [place] with worsening SOB. Patient has a Hx of COPD and on chronic O2 @3L/NC. His CXR showed possible sequela of chronic exudative effusion, but pneumonia could not be excluded. Underwriting Manager was consulted and patient was treated with IV a ntibiotics that have been currently converted to oral. He was only on IV steroids but now on tapered dose of oral steroids. He was also treated with scheduled updrafts and bronchodilator inhalers, with his supplemental O2 being able to be weaned down to patient's baseline level of 3L/NC prior to his discharge. He was also diuresed by IV lasix and has been placed back on his home dose of oral prednisone. His blood glucose levels were slightly elevated likely due to steroids and his insulin dose was adjusted. Patient is back to his baseline and has been cleared for discharge by the photo mask pattern generator. No acute distress was noted prior to discharge and patient is medically stable for discharge. His other chronic conditions remained stable inpatient. Patient is non-compliant with his BIPAP at home and in the hospital too, but settings have been placed per photo mask pattern generator, in case he decides to use it. Status at Discharge Functional status at discharge: uses cane/walker Overall status at discharge: patient is progressing back to baseline Time Spent with Patient Time attestation: Total time spent providing and/or coordinating discharge services: Time spent: Greater than 30 minutes Exam Narrative: GENERAL: Conversational dyspnea. Morbid obesity - EYES: EOMI. Anicteric. - HENT: Moist mucous membranes. - LUNGS: Diminished breath sounds, tach ypnea, coarse breath sounds bilateral base - CARDIOVASCULAR: Regular rate and rhyth m. No murmurs. No JVD. - ABDOMEN: Soft, non-tender and non-dist ended. - EXTREMITIES: No edema. Peripheral puls es 2+. Non-tender. - NEUROLOGIC: No focal neurological defi cits. CN II-XII grossly intact. - PSYCHIATRIC: Awake, Alert and oriented x 3. Appropriate mood and affect. - SKIN: No rashes or lesions. Warm. DS: Data Data Completed and Pending Labs on day of discharge: Labs from last 24 hours 10/11/24 10/11/24 10/11/24 11:43 08:14 04:57 Puncture Site Left radial ABG pH 7.428 ABG pCO2 64.0 H* ABG pO2 83.5 ABG PO2/FiO2 Ratio 2.32 ABG HCO3 41.3 H ABG O2 Saturation 96.1 ABG O2 Content 17.2 ABG Base Excess 14.2 A-a Gradient 98.9 Oxyhemoglobin 96.1 Total Hemoglobin 12.7 O2 Delivery Device Non-invasive vent O2 Liters/Min Not Reportable Vent Rate 20 FiO2 36 Expiratory Pressure 8 Inspiratory Pressure 20 POC Capillary Glucose 290 H 168 H Nasal MRSA (PCR) Stl Occult Blood (IFOB) 10/10/24 10/10/24 10/10/24 20:52 20:01 16:28 Puncture Site ABG pH ABG pCO2 ABG pO2 ABG PO2/FiO2 Ratio ABG HCO3 ABG O2 Saturation ABG O2 Content ABG Base Excess A-a Gradient Oxyhemoglobin Total Hemoglobin O2 Delivery Device O2 Liters/Min Vent Rate FiO2 Expiratory Pressure Inspiratory Pressure POC Capillary Glucose 315 H 296 H Nasal MRSA (PCR) Not detected Stl Occult Blood (IFOB) Negative Preliminary micro results at discharge 10/09/24 13:50 Blood Culture - Preliminary Blood 10/09/24 13:39 Blood Culture - Preliminary Blood Discharge Plan Discharge Attending physician on discharge: Iva Lopez Consulting providers: Mehrdad Gonzalez Discharging Clinician: Isaías Sutton Anticipated Discharge Date/Time: 10/11/24 12:56 Patient Disposition: SNF Activity: as tolerated Diet: heart healthy and diabetic Patient Instructions: Rivaroxaban (By mouth), How to Stop Smoking (DC), Pain Management (DC) Patient Language: Sinhala Stand Alone Forms: General Discharge Information Follow-up/Referrals: Pradip Alcantara MD [Primary Care Provider] - 1 Week Discharge Medications: New azithromycin [Zithromax] 250 mg Tablet 250 mg PO DAILY Qty: 2 0RF prednisone 20 mg Tablet 40 mg PO DAILY@0800 Qty: 1 0RF Continued albuterol sulfate 2.5 mg /3 mL (0.083 %) solution for nebulization 2.5 mg inhalation Q4-6H PRN (Reason: Dyspnea) insulin lispro 100 unit/mL insulin pen 9 unit subcut USEASDIRECTD Rx Instructions: with lunch and dinner gabapentin 100 mg capsule 200 mg PO 0800,1200 gabapentin 400 mg capsule 400 mg PO QHS insulin glargine [Lantus U-100 Insulin] 100 unit/mL solution 28 unit subcut QHS Xarelto 20 mg tablet 20 mg PO QAM risperidone 0.5 mg tablet 0.5 mg PO .0800/1200 aspirin 81 mg Tablet 81 mg PO DAILY sennosides-docusate sodium [Senexon-S] 8.6-50 mg tablet 1 tablet PO BID PRN (Reason: Constipation) tamsulosin 0.4 mg capsule 0.4 mg PO DAILY buspirone 10 mg tablet 10 mg PO TID polyethylene glycol 3350 17 gram/dose powder 17 g PO DAILY PRN (Reason: Constipation) albuterol sulfate 90 mcg/actuation HFA aerosol inhaler 2 puff INHALATION Q4H multivitamin [Daily-Isidro] Tablet 1 tablet PO DAILY Anoro Ellipta 1 puff inhalation DAILY ketoconazole 2 % Shampoo 4 applic TOPICAL DAILY trazodone 50 mg tablet 25 mg PO HS cholecalciferol (vitamin D3) [Vitamin D3] 125 mcg (5,000 unit) Tablet 125 mcg PO DAILY furosemide 40 mg Tablet 40 mg PO DAILY Qty: 0 0RF atorvastatin 40 mg Tablet 40 mg PO HS Qty: 0 0RF spironolactone 25 mg Tablet 25 mg PO QAM Qty: 0 0RF metoprolol tartrate 50 mg Tablet 50 mg PO Q12HR Qty: 0 0RF tramadol 50 mg tablet 50 mg PO Q6H PRN (Reason: Pain) Qty: 10 0RF famotidine 20 mg tablet 20 mg PO DAILY losartan 100 mg tablet 100 mg PO DAILY Trulicity 0.75 mg/0.5 mL pen injector 0.75 mg subcut WEEKLY insulin glargine-yfgn 100 unit/mL solution 5 unit subcut DAILY insulin lispro 100 unit/mL solution 5 unit subcut DAILY insulin glargine-yfgn 100 unit/mL solution 38 unit subcut QPM insulin lispro 100 unit/mL solution 11 unit subcut .lunch and supper amantadine HCl 100 mg capsule 100 mg PO DAILY ipratropium-albuterol 0.5 mg-3 mg(2.5 mg base)/3 mL solution for nebulization 3 ml INHALATION Q6H PRN (Reason: shortness of breath or wheezing) ketoconazole 2 % cream 1 applic TOPICAL BID Date of admission: 10/08/24 09:43 Primary Care Provider: Pradip Alcantara Admitting Provider: Kamala Hayes V. Attending physician on admission: Kamala Hayes V. Condition: Stable Quality VTE Prophylaxis VTE prophylaxis: pharmacologic ordered Hospitalist MIPS Heart Failure (Exclusion) Patient has history of Heart Transplant or Left Ventricular Assistive Device?: No IF YES, STOP HERE Heart Failure (Qualifier) Patient has current or prior documentation of LVEF less than or equal to 40%, or mod/servere depressed LVSF?: No IF NO, STOP HERE
[2024-10-11] MEDS: INSULIN ASPART (*BKC) 100 UNITS/ML 12 UNITS SUB-Q ×2 (12:36→17:04)
[2024-10-11] MEDS: INSULIN ASPART (*BKC) 100 UNITS/ML SUB-Q ×2 (12:36→17:04)
[2024-10-11 16:43] LABS: Glucose Point of Care 250 mg/dl (65-105)
[2024-10-11] MEDS: RIVAROXABAN 20 MG TABLET PO (17:04)
[2024-10-13 08:17] LABS: Mycoplasma IgM Antibody Titer 87
[2024-10-13 14:33] LABS: Adenovirus DNA Not Detected (Not Detected); Chlamydophila pneumoniae Not Detected (Not Detected); Coronavirus 229E Not Detected (Not Detected); Coronavirus HKU1 Not Detected (Not Detected); Coronavirus NL63 Not Detected (Not Detected); Coronavirus OC43 Not Detected (Not Detected); Human Metapneumovirus Not Detected (Not Detected); Human Parainfluenza Virus 1 Not Detected (Not Detected); Human Parainfluenza Virus 2 Not Detected (Not Detected); Human Parainfluenza Virus 3 Not Detected (Not Detected); Human Parainfluenza Virus 4 Not Detected (Not Detected); Human RSV B Not Detected (Not Detected); Influenza A Not Detected (Not Detected); Influenza B Not Detected (Not Detected); Mycoplasma pneumoniae Not Detected (Not Detected); Rhinovirus/Enterovirus Not Detected (Not Detected)
== END 2024-10-11 17:20 | DRG 140 ==
LOC: ANHED 10-08 05:17 → ANHICU 10-08 05:28 → ANHIMU 10-09 09:37 → ANH3MEDSUR 10-11 12:56 → ANHIMU 10-14 13:54
PROVIDERS: Hospitalist; Internal Medicine Pulmonary Disease; Admitting Provider Internal Medicine; Emergency Provider Student in an Organized Health Care Education/Training Program; PCP Pediatrics Neonatal-Perinatal Medicine; Visit Provider Internal Medicine
DX: J44.1 Chronic obstructive pulmonary disease with (acute) exacerbation (principal); J96.21 Acute and chronic respiratory failure with hypoxia; J96.22 Acute and chronic respiratory failure with hypercapnia; I50.43 Acute on chronic combined systolic (congestive) and diastolic (congestive) heart failure; I25.10 Atherosclerotic heart disease of native coronary artery without angina pectoris; I11.0 Hypertensive heart disease with heart failure; I27.20 Pulmonary hypertension, unspecified; I48.0 Paroxysmal atrial fibrillation; I48.92 Unspecified atrial flutter; D64.9 Anemia, unspecified; E11.40 Type 2 diabetes mellitus with diabetic neuropathy, unspecified; G47.33 Obstructive sleep apnea (adult) (pediatric); F41.1 Generalized anxiety disorder; F31.9 Bipolar disorder, unspecified; F17.210 Nicotine dependence, cigarettes, uncomplicated; Z87.820 Personal history of traumatic brain injury; Z79.4 Long term (current) use of insulin; Z79.82 Long term (current) use of aspirin; Z86.73 Personal history of transient ischemic attack (TIA), and cerebral infarction without residual deficits; Z86.718 Personal history of other venous thrombosis and embolism; Z95.0 Presence of cardiac pacemaker; Z95.5 Presence of coronary angioplasty implant and graft; Z99.81 Dependence on supplemental oxygen
CPT/HCPCS: 36415; 36600; 71045; 71046; 71250; 80053; 82274; 82728; 82805; 82948; 83540; 83550; 83735; 83880; 84145; 85018; 85025; 85380; 86738; 87040; 87633; 87637; 87641; 93005; 94002; 94003; 94640; 94762; 96365; 96375; 96376; 97161; 97165; 99285; A9270; C8929; G0378; G0379; J0456; J0612; J1815; J1940; J2060; J2919; J3475; J7512; Q9957

== ENCOUNTER 2024-10-19 13:47 | Emergency (ER) | payer OTHER, SELFPAY ==
[2024-10-19 14:00] VITALS: PULSE 102
--- NOTE | 2024-10-19 14:02 | PC.NURSE ---
[facility] [phone]
--- NOTE | 2024-10-19 14:25 | ED.CPR ---
HPI - CPR General Chief Complaint: Cardiac Arrest/CPR Stated Complaint: CPR History of Present Illness HPI narrative: 63-year-old male with a past medical history including COPD on home oxygen, CHF, atrial fibrillation on Xarelto, insulin-dependent diabetes. Recent admission to the hospital and discharged on 10/11. Patient presents via EMS and cardiac arrest. Patient was at a skilled nurse facility and had a witnessed cardiac arrest after eating lunch. Patient had large volume vomitus on scene and throughout resuscitative efforts by EMS prior to transport. Patient had high quality CPR started by EMS with Stanley device, I gel supraglottic intubation, tibial IO placement. He was transported to the hospital for further evaluation treatment. Presents as a cardiac arrest, brought back in the room 13 for medical resuscitation at this time with respiratory therapy to assist. Related Data Home Medications ?Medication ?Instructions ?Recorded ?Confirmed ?Last Taken ?Type aspirin 81 mg tablet 81 mg PO DAILY 11/26/20 10/08/24 Unknown History albuterol sulfate 90 mcg/actuation 2 puff inhalation Q4H 12/15/21 10/08/24 Unknown History aerosol inhaler buspirone 10 mg tablet 10 mg PO TID 12/15/21 10/08/24 Unknown History polyethylene glycol 3350 17 17 g PO DAILY PRN Constipation 12/15/21 10/08/24 Unknown History gram/dose oral powder sennosides 8.6 mg-docusate sodium 1 tablet PO BID PRN Constipation 12/15/21 10/08/24 Unknown History 50 mg tablet (Senexon-S) tamsulosin 0.4 mg capsule 0.4 mg PO DAILY 12/15/21 10/08/24 Unknown History multivitamin (Daily-Isidro tablet) 1 tablet PO DAILY 12/16/21 10/08/24 Unknown History albuterol sulfate 2.5 mg/3 mL 2.5 mg inhalation Q4-6H PRN Dyspnea 02/22/22 10/08/24 Unknown History (0.083 %) solution for nebulization Anoro Ellipta 1 puff inhalation DAILY 02/08/23 10/08/24 Unknown History ketoconazole 2 % shampoo 4 applic topical DAILY 02/08/23 10/08/24 Unknown History gabapentin 100 mg capsule 200 mg PO 0800,1200 07/31/23 10/08/24 Unknown History gabapentin 400 mg capsule 400 mg PO QHS 07/31/23 10/08/24 Unknown History insulin glargine 100 unit/mL 28 unit subcut QHS 07/31/23 10/08/24 Unknown History subcutaneous solution (Lantus U-100 Insulin) insulin lispro 100 unit/mL 9 unit subcut USEASDIRECTD 07/31/23 10/08/24 Unknown History subcutaneous pen rivaroxaban 20 mg tablet (Xarelto) 20 mg PO QAM 07/31/23 10/08/24 Unknown History cholecalciferol (vitamin D3) 125 125 mcg PO DAILY 10/20/23 10/08/24 Unknown History mcg (5,000 unit) tablet (Vitamin D3) trazodone 50 mg tablet 25 mg PO HS 10/20/23 10/08/24 Unknown History risperidone 0.5 mg tablet 0.5 mg PO .0800/1200 11/22/23 10/08/24 Unknown History amantadine HCl 100 mg capsule 100 mg PO DAILY 10/08/24 10/08/24 Unknown History dulaglutide 0.75 mg/0.5 mL 0.75 mg subcut WEEKLY 10/08/24 10/08/24 Unknown History subcutaneous pen injector (Trulicity) famotidine 20 mg tablet 20 mg PO DAILY 10/08/24 10/08/24 Unknown History insulin glargine-yfgn 100 unit/mL 5 unit subcut DAILY 10/08/24 10/08/24 Unknown History subcutaneous solution insulin glargine-yfgn 100 unit/mL 38 unit subcut QPM 10/08/24 10/08/24 Unknown History subcutaneous solution insulin lispro 100 unit/mL 5 unit subcut DAILY 10/08/24 10/08/24 Unknown History subcutaneous solution insulin lispro 100 unit/mL 11 unit subcut .lunch and supper 10/08/24 10/08/24 Unknown History subcutaneous solution ipratropium 0.5 mg-albuterol 3 mg 3 ml inhalation Q6H PRN shortness 10/08/24 10/08/24 Unknown History (2.5 mg base)/3 mL nebulization of breath or wheezing soln ketoconazole 2 % topical cream 1 applic topical BID 10/08/24 10/08/24 Unknown History losartan 100 mg tablet 100 mg PO DAILY 10/08/24 10/08/24 Unknown History Allergies Allergy/AdvReac Type Severity Reaction Status Date / Time acetaminophen Allergy Unknown Unknown Verified 10/07/24 22:33 Review of Systems Review of Systems: ROS unobtainable: Yes unobtainable due to medical condition [facility] Past Medical History Medical History Hypertension Pacemaker Paroxysmal atrial flutter Chronic respiratory failure with hypoxia and hypercapnia Cerebrovascular accident Mild pulmonary hypertension Estimated pulmonary arterial systolic pressure was 40 mmHg on echocardiogram in November 2021. Combined systolic and diastolic congestive heart failure Echocardiogram on 12/16/2021 showed a mildly enlarged LV chamber, [id number] reduced left ventricular systolic function with an EF estimated 40 to 45%, and abnormal diastolic function. Paroxysmal atrial fibrillation Transient ischemic attack Chronic anticoagulation Deep venous thrombosis Coronary artery disease Chronic obstructive pulmonary disease Diabetic neuropathy History of trauma Traumatic brain injury years ago after a fall. Generalized anxiety disorder Bipolar disorder Depression Insulin dependent diabetes mellitus Obstructive sleep apnea Noncompliant with BiPAP. On 2 L nasal cannula at nighttime. Surgical History Surgical History History of open reduction and internal fixation (ORIF) procedure Repair of right lower extremity and left shoulder fractures. History of coronary artery stent placement History of pacemaker History of tracheostomy Family History Family History Other Cancer Social History Social History Social History: Resident at [facility] [employer]. He is and has 1 child. On disability since his traumatic brain injury. He smoked up to 2 packs of cigarettes a day but is now down to about a pack a day. He has smoked for at least 30+ years. No alcohol or illicit substance abuse. Healthcare power of disability attorney: Simone Morley. Code status: Full code. Smoking packs per day: 1 Smoking cigarettes per day: 20.0 Years smoked: 30 Smoking pack-years: 30.00 Smoking status: Former smoker Second hand tobacco smoke exposure: No Alcohol intake: unknown Substance use: unknown Spiritual care concerns: No Exam Narrative: GENERAL: Cardiac arrest HEAD: [Normocephalic, atraumatic.] EYES: 4 mm, fixed and dilated, some asymmetry with left pupil appearing oblong shaved ENT: Profound amount of vomitus in the upper airways, in the oropharynx, nasopharynx, large amount of chunky food particles in the airway NECK: Supple. CHEST: Coarse breath sounds with BVM, difficult to bag HEART: Pulsations felt with Stanley device in the femoral vessels otherwise no cardiac activity or heart sounds ABDOMEN: Distended, protuberant abdomen, caput medusa noted EXTREMITIES: Tibial IO, no extremity edema SKIN: Warm, dry, no rash. NEURO: GCS 3 Course Vital Signs Vital signs: Vital Signs Pulse Rate 102 H 10/19/24 14:00 Pulse Rate 102 H 10/19/24 14:00 Procedures Intubation Intubation #1: Intubation Date: 10/19/24 Intubation Time: 13:50 Time out performed: Yes sedative: none Mg Given: 0 Mg Given: 0 Laryngoscope: fiber optic video scope Tube Size (cm): 7.5 Method of Intubation: orotracheal Number of Attempts: 1 Tube Secured Depth (cm): 24 Tube Secured Location: lips Tube Placement Confirmation: visualized tube passing through cords, equal breath sounds bilaterally, no breath sounds over epigastrium and confirmation by capnometry Patient Tolerated Procedure: well and no complications Intubation Complications: none MDM - Cardiac Arrest/CPR MDM Narrative Medical decision making narrative: 63-year-old male with chronic medical history including COPD on home oxygen, CHF, insulin-dependent diabetes, AFib on Xarelto. Patient presents in cardiac arrest. EMS came to patient's nursing facility after he had a witnessed cardiac arrest. He had just completed eating lunch in was going back to his room and collapsed. He had profound vomitus in his upper airway and is supraglottic airway was established, IO was established and he was transported with a Stanley device with high quality CPR ongoing. Patient arrives with PE a rest according to the EMS crew. High quality CPR continued here with Stanley device, chest compressions, intubation with exchange of his supraglottic airway for endotracheal tube with 1st pass success. Profound amount of vomitus in the upper airway requiring suction both in line through the endotracheal tube and with orogastric tube. Large amount of vomitus and chunky food particles removed from the upper airways and oropharynx. Prior to arrival he was given 5 rounds of epinephrine, blood sugar was normal at 200. Here he received additional epinephrine, calcium chloride, bicarbonate. 1345 arrival, down time was 33 minutes prior to arrival. The patient received multiple rounds of epinephrine while here in the emergency department. Endotracheal tube and orogastric tube placed. He did have a change of rhythm and started having pulses V-tach during 1 rhythm check. No cardiac activity on the ultrasound. Charge of 200 joules was delivered he was started on 300 mg of amiodarone wall continuous pulse checks and CPR going. Patient had deterioration to ventricular fibrillation and was given 360 joule defibrillations additional 5 times during sequential pulse checks and continuous VFib arrest. He was given additional epinephrine every 3 minutes. Each pulse check revealed no cardiac activity, cardiac stent along clotted blood in the ventricles. Ventricular fibrillation on the monitor. He was given another 150 mg of amiodarone an additional defibrillation at times. Last ditch effort with esmolol infusion of 50 mg given initial defibrillation again with no change in rhythm from VFib. Deterioration from coarse VFib into fine VFib into asystole. Bedside ultrasound confirmed cardiac stent stone clotted blood, no pulse a shins, no respiratory effort. Time of was called at 2:10 p.m. by myself. I did speak to the patient's family was not present in the immediate area. I did tell the patient's family about his and next steps including coronary or release and home arrangements. Will attempt to reach PCP for certificate signing. Differential Diagnosis Differential diagnosis: Likely acute massive pulmonary embolism, acute respiratory failure, acute myocardial infarction, cardiac arrest, sudden cardiac and other Medical Records Attestation: I reviewed the patient's medical records. Critical Care Time Critical Care Time Critical Care Time: Yes Total Critical Care Time: 35 Discharge Plan Discharge Clinical Impression: Cardiac arrest Patient Disposition: Condition: Patient Language: Indonesian Prescriptions: No Action albuterol sulfate 2.5 mg /3 mL (0.083 %) solution for nebulization 2.5 mg inhalation Q4-6H PRN (Reason: Dyspnea) insulin lispro 100 unit/mL insulin pen 9 unit subcut USEASDIRECTD Rx Instructions: with lunch and dinner gabapentin 100 mg capsule 200 mg PO 0800,1200 gabapentin 400 mg capsule 400 mg PO QHS insulin glargine [Lantus U-100 Insulin] 100 unit/mL solution 28 unit subcut QHS Xarelto 20 mg tablet 20 mg PO QAM risperidone 0.5 mg tablet 0.5 mg PO .0800/1200 aspirin 81 mg Tablet 81 mg PO DAILY sennosides-docusate sodium [Senexon-S] 8.6-50 mg tablet 1 tablet PO BID PRN (Reason: Constipation) tamsulosin 0.4 mg capsule 0.4 mg PO DAILY buspirone 10 mg tablet 10 mg PO TID polyethylene glycol 3350 17 gram/dose powder 17 g PO DAILY PRN (Reason: Constipation) albuterol sulfate 90 mcg/actuation HFA aerosol inhaler 2 puff INHALATION Q4H multivitamin [Daily-Isidro] Tablet 1 tablet PO DAILY Anoro Ellipta 1 puff inhalation DAILY ketoconazole 2 % Shampoo 4 applic TOPICAL DAILY trazodone 50 mg tablet 25 mg PO HS cholecalciferol (vitamin D3) [Vitamin D3] 125 mcg (5,000 unit) Tablet 125 mcg PO DAILY furosemide 40 mg Tablet 40 mg PO DAILY Qty: 0 0RF atorvastatin 40 mg Tablet 40 mg PO HS Qty: 0 0RF spironolactone 25 mg Tablet 25 mg PO QAM Qty: 0 0RF metoprolol tartrate 50 mg Tablet 50 mg PO Q12HR Qty: 0 0RF tramadol 50 mg tablet 50 mg PO Q6H PRN (Reason: Pain) Qty: 10 0RF famotidine 20 mg tablet 20 mg PO DAILY losartan 100 mg tablet 100 mg PO DAILY Trulicity 0.75 mg/0.5 mL pen injector 0.75 mg subcut WEEKLY insulin glargine-yfgn 100 unit/mL solution 5 unit subcut DAILY insulin lispro 100 unit/mL solution 5 unit subcut DAILY insulin glargine-yfgn 100 unit/mL solution 38 unit subcut QPM insulin lispro 100 unit/mL solution 11 unit subcut .lunch and supper amantadine HCl 100 mg capsule 100 mg PO DAILY ipratropium-albuterol 0.5 mg-3 mg(2.5 mg base)/3 mL solution for nebulization 3 ml INHALATION Q6H PRN (Reason: shortness of breath or wheezing) ketoconazole 2 % cream 1 applic TOPICAL BID azithromycin [Zithromax] 250 mg Tablet 250 mg PO DAILY Qty: 2 0RF prednisone 20 mg Tablet 40 mg PO DAILY@0800 Qty: 1 0RF Follow-up/Referrals: Pradip Alcantara MD [Primary Care Provider] - Time of Disposition: 14:44
--- NOTE | 2024-10-19 16:26 | PCCCNOTE ---
Call by ER to assist in home designation. Called ALEX Morley [phone]; he stated that the [facility] had that information. [facility] called [phone] and informed them of pt expiration and was told that [facility] [phone] was the designated home. Information given to Charge Nurse Ismael.
--- OUTSIDE RECORDS SUMMARY | 2024-10-26 21:08 | XMS_ITS | Encounter Summary ---
Author Organization [facility] Address [address] [place] [address] Care Team Providers Care Electroplating Laborer Name Role Phone [facility] ([facility]) Primary Care Provi lesli Reason for Visit * Reason Comments Basal Cell Carcinoma Left cheek Encounter Details Date Type Department Care Team (Latest Contact Info) Description 12/01/2022 8:30 AM CLINICAL REHABILITATION COORDINATOR Procedure visit [facility] [address] [place] [address] [place] [address] MD [address] [place] [address] [address] [place] [address] Basal cell carcinoma (BCC) of left cheek Social History Tobacco Use Types Packs/Day Years Used Date Smoking Tobacco: Every Day Cigarettes Smokeless Tobacco: Never Alcohol Use Standard Drinks/Week Comments No 0 (1 standard drink = 0.6 oz pur e alcohol) Sex and Gender Information Value Date Recorded Sex Assigned at Not on file Gender Identity Not on file Sexual Orientation Not on file documented as of this encounter Patient Instructions * Patient Instructions* Emily Apple - 12/01/2022 12:25 PM CLINICAL REHABILITATION COORDINATOR Stitches: should be removed 7 days in nurse clinic Follow up: * If you have a problem or concern post-operatively, please call ahead to schedule an appointment. We may not be able to accommodate a walk-in appointment * Please continue wound care below twice a day for one week WOUND CARE INSTRUCTIONS 1. Leave your pressure bandage on for 48 hours. You may bathe/shower, but do NOT get the bandage wet. You will not need to perform any wound care until this bandage is removed. 2. When you initially begin wound care, you may let the water hit the pressure bandage to loosen itfrom your skin. The bandage should be removed before bathing/showering. 3. Wash your hands thoroughly before starting wound care. Do not use the same cloth/rag/sponge you would use to wash the remainder of your body as this may introduce bacteria from other areas of yourbody and possibly cause infection at the surgical site. 4. You will clean the surgery site twice daily with a mild liquid soap (i.e. Dove, Cetaphil, Baby shampoo). Do not use anything antibacterial, as this will dry the surgical site. 5. Dry the area with a fresh Q-tip or clean gauze. 6. Apply a generous amount of Vaseline or Aquaphor to the wound/sutures. Do not use Neosporin, or any antibacterial ointment as this is likely to cause an allergic reaction to the site. If you are not sure of the sanitary condition of any Vaseline/Aquaphor you may have at home, please purchase a new jar or tube. DO NOT DOUBLE-DIP Q-tips into the ointment and DO NOT USE YOUR FINGERS. This is essential in helping to prevent cross contamination and infection. 7. Cut a non-stick bandage pad to fit the area and then use bandaging tape to hold in place. Paper tape is a good option for very sensitive skin types. 8. You will be using mild soap, clean tap water, Vaseline/Aquaphor, and a bandage twice a day for 1week 9. After surgery, you may restart all your medications that were stopped (if applicable). If your surgical site is on your forehead, or close to the eye area, you will want to use ice packs. Please apply ice packs every hour for 20 minutes while awake. Sleep elevated for the next two nights as this will help decrease the amount of bruising and swelling you will notice the evening after surgery and into the next morning. For surgical areas on your arms/legs, try to keep the area elevated above the level of your heart as much as possible. This will help to decrease swelling. Frequent gentle rubbing of your fingers or toes in that area will prevent numbness and stiffness. If located on your arm/hand, we ask that you do not lift anything heavier than a gallon of milk fortwo weeks. Keep the arm/hand elevated to help decrease swelling in the wrist and fingers. Do not wear jewelry as impending swelling could cause discomfort. For surgical areas on your head/neck, do not bend over or stoop down. Do not drop your head, as this increases blood to the surgical area and can induce bleeding. Refrain from use of hair care products, hair coloring, or permanents until sutures have been removed and/or the surgical site has completely healed. BATHING: Begin bathing/showering once pressure bandage comes off. Do not let direct water pressure hit the surgery site. It is okay if it gets wet, just let the water roll over. PAIN: Tylenol only for the first 24 hours. Do not take any aspirin, Ibuprofen, Motrin or Aleve as this may increase your risk for bleeding for the first 24 hours. Significant pain/discomfort is unusual and should be reported to our office. SIGNS OF POSSIBLE INFECTION: Significant redness surrounding the surgery site that is warm to the touch, persistent or worsening pain, fever or flu-like symptoms, increased swelling to the area, thick yellow discharge, and/or foul odor. Please call our office as soon as possible if you experience any these symptoms as you may have an infection. BLEEDING: A mild amount of blood on the bandage is expected. Soaking through the bandage is not normal. If this occurs, remove the soiled bandage and apply uninterrupted pressure for 20 minutes by the clock. If this does not stop the bleeding, hold pressure for another 20 minutes with an ice pack. If bleeding stops, apply a bandage per wound care instructions. IF THE BLEEDING PERSISTS, PLEASE CALL OUR OFFICE. Normal office hours: [phone] or [phone] After hours and holidays Hollow Handle Knife Assembler stone circular sawyer: [phone] Scars may take 12 months or longer to mature, although a great deal of improvement occurs in the first 3 months. If you have concerns about your scar after 3 months, please call our office to schedule a follow up appointment. There are options available to help improve the appearance. If you have concerns about how your wound is healing and would like to send us a photo, please email us at [email or web address]. Please include your name and date of in the email. ICAL REHABILITATION COORDINATOR documented in this encounter Progress Notes * Francisco Templeton MD - 12/01/2022 12:54 PM CST Mohs Consult Note Subjective: Jp Morley is a 61 year old male who is referred by Dr. patton for evaluation of a basal cell carcinoma on the left cheek. Recurrent skin cancer: no Prior Treatment: no Past Medical History: Diagnosis Date ??? Asthma ??? CHF (congestive heart failure) ([facility]) ??? COPD (chronic obstructive pulmonary disease) ([facility]) ??? CVA (cerebrovascular accident) ([facility]) ??? DM (diabetes mellitus) ([facility]) ??? High cholesterol ??? CT (myocardial infarction) ([facility]) Current Outpatient Medications Medication Sig Dispense Refill ??? acetaminophen (TYLENOL) 325 MG tablet Take 2 Tabs by mouth every 6 hours as needed for Pain. Maximum allowable Acetaminophen amount = 4 Grams (4000 mg) / 24 hours. 0 0 ??? albuterol (PROVENTIL;VENTOLIN) (5 MG/ML) 0.5% nebulizer solution Inhale 0.5 mL by mouth 4 timesdaily. 0 0 ??? amantadine (Symmetrel) 100 MG capsule ??? amLODIPine (NORVASC) 10 MG tablet Take 10 mg by mouth once daily. ??? ARIPiprazole (ABILIFY) 10 MG tablet Take 1 Tab by mouth once daily. 0 0 ??? aspirin 325 MG tablet Take 1 Tab by mouth once daily. (Patient taking differently: Take 81 mg by mouth once daily) 0 0 ??? aspirin EC (Ecotrin) 81 MG tablet aspirin 81 mg tablet,delayed release ??? atorvastatin (Lipitor) 10 MG tablet ??? budesonide-formoterol (SYMBICORT) 160-4.5 MCG/ACT inhaler Inhale 2 Puffs by mouth 2 times daily. 0 0 ??? busPIRone (Buspar) 10 MG tablet ??? dilTIAZem coated beads 24hr (Cardizem CD) 120 MG capsule ??? doxycycline monohydrate 100 MG capsule Take 1 (one) capsule by mouth every 12 hours for 7 days 14 capsule 0 ??? enoxaparin (LOVENOX) injection Inject 40 mg subcutaneously once daily. 0 0 ??? ergocalciferol (Drisdol) 1.25 MG (79841 UT) capsule Take 1 (one) capsule by mouth every 30 days ??? famotidine (Pepcid) 20 MG tablet ??? furosemide (LASIX) 40 MG tablet Take 40 mg by mouth once daily. ??? gabapentin (Neurontin) 300 MG capsule gabapentin 300 mg capsule ??? gabapentin (Neurontin) 400 MG capsule ??? glipiZIDE (GLUCOTROL) 10 MG tablet Take 10 mg by mouth daily before breakfast. ??? guaifenesin ER 12hr 1200 MG TB12 Take 1,200 mg by mouth every 12 hours. 0 0 ??? ipratropium (ATROVENT) 0.02 % nebulizer solution Inhale 0.5 mg by mouth 4 times daily. 0 0 ??? ketoconazole (Nizoral) 2 % cream Apply to affected areas on forehead, between eyebrows, nose, cheeks, chin twice daily. 30 days supply. 30 g 4 ??? ketoconazole (Nizoral) 2 % shampoo Apply to affected dry areas on forehead, nose, cheeks, chin once daily. Lather and leave on for 3-5 minutes, then wash off. 30 days supply 120 mL 4 ??? lisinopril (PRINIVIL; ZESTRIL) 20 MG tablet Take 20 mg by mouth once daily. ??? losartan (Cozaar) 50 MG tablet ??? pantoprazole EC (PROTONIX) 40 MG tablet Take 40 mg by mouth once daily. ??? PARoxetine (PAXIL) 40 MG tablet Take 40 mg by mouth once daily. ??? polyethylene glycol 3350 (MIRALAX) 17 GM/SCOOP powder 17 (seventeen) g by Enteral Tube route once daily 238 g 0 ??? predniSONE (DELTASONE) 10 MG tablet Take 3 tabs once daily for 2 days, two tabs once daily for 2 days, one tab once daily for 2 days, then stop. 0 0 ??? risperiDONE (RisperDAL) 1 MG tablet ??? Senexon-S 8.6-50 MG tablet ??? tamsulosin (Flomax) 0.4 MG capsule ??? traZODone (DESYREL) 50 MG tablet Take 1 Tab by mouth nightly as needed for Insomnia. 0 0 No current facility-administered medications for this visit. Allergies Allergen Reactions ??? Haloperidol Malignant Hyperthermia Other reaction(s): Risk for Malignant Hyperthermia ??? Acetaminophen Urticaria and Rash Other reaction(s): Redness Pre-Operative Risk Factors: Current Anticoagulants: Coumadin Patient reports use of antibiotic for prior procedure: no Endocarditis / Rheumatic Fever hx: no Vascular graft: no Immunocompromised: no Prosthetic joint: no Congenital heart defect: no Prosthetic heart valve: no Diabetic: no Transplant: no Cardiac devices: Stent: yes. Pacemaker: yes. Defibrillator: no Transmissible Diseases: HIV no HepC no no Patient reports prior problem with local anesthesia no Photoprotection occasionally Sun johnson 1-5 in lifetime Tanning bed use never Tobacco use : no Occupation : Review of Systems Constitutional: negative Eyes: negative Ears, nose, mouth, throat, and face: negative Respiratory: negative Cardiovascular: negative Gastrointestinal: negative Genitourinary:negative Hematologic/lymphatic: negative Neurological: negative Behavioral/Psych: negative Objective: Physical Exam: GENERAL APPEARANCE: oriented and alert SKIN: Detailed skin exam of the face, eyelids, lips, ears, scalp, and neck is normal except for a 1.0x1.0cm pink plaque located on the left cheek. Pathologic Findings: Diagnosis: basal cell carcinoma Assessment and Plan: Treatment Options: The various treatment options for skin cancer removal were reviewed with the patient in detail. These include Mohs surgery with its high cure rate, excision destructive treatment, radiation therapy, and various topical therapies. Given the indications and high cure rate, the patient has agreed to proceed with Mohs. Risks and Benefits: The rationale for Mohs was explained to the patient. The risks and benefits to therapy were discussed in detail. Specifically, the risks of infection, scarring, bleeding, dehiscence, hematoma, prolonged wound healing, incomplete removal, allergy to anesthesia, nerve injury, inability to clear the tumor, and recurrence were addressed. The treatment site was clearly identified and confirmed by the patient. Diagnosis: basal cell carcinoma, left cheek Plan: mohs Indication for Mohs location Proposed closure: complex Indication for antibiotics: no Current Anticoagulants: Coumadin Francisco Templeton MD Dermatology Resident, PGY-3 ICAL REHABILITATION COORDINATOR Associated attestation - Shila St MD - 12/03/2022 10:35 PM CLINICAL REHABILITATION COORDINATOR I have seen and examined the patient with the resident and I agree with the findings and plan of care as documented by the resident. Date of Service: 12/01/[address] MD documented in this encounter Procedure Notes * Emily Apple - 12/01/2022 1:29 PM CSTAssociated Order(s): PROC MOHS SURG HEAD/NECK/HAND/FEET/RAJESH Procedure(s): WI CHMSRG MOHS MG TQ H/N/H/F/G 1ST STAG 5 BLOC; WI INTMD WND REPAIR FACE,FACIAL 2.5-5 Pre-Procedure Diagnose(s): Basal cell carcinoma (BCC) of left cheek Mohs Micrographic Surgery Operative Note Procedure: Mohs micrographic surgery Date of service: 12/01/2022 Location: left cheek Preop diagnosis: Basal cell carcinoma Postop diagnosis: Basal cell carcinoma Mohs AUC score: 8 Number of stages: 1 Preop size: 2.0x1.0 cm Postop size: 3.0x2.3 cm Depth of final defect: adipose Previous dermpath accession #: [id number] Repair type: intermediate Mohs accession #: [id number] Surgeon and Pathologist: Shila St MD served as both surgeon and pathologist. No other physician was involved in the cancer removal or pathology interpretation. Assistants: N/A Indications for Mohs Surgery Removal of the patient's tumor is complicated by the following clinical features: Clinical area critical for tissue conservation (Area M: cheeks, forehead, scalp, neck, jawline, pretibial surface). Based on my medical judgement, Mohs surgery is the most appropriate treatment for this cancer compared to other treatments. I discussed alternative treatments to Mohs surgery and specifically discussed the risks and benefits of curettage, excision with permanent sections, and foregoing treatment. The rationale for Mohs was explained to the patient and consent was obtained. The risks, benefits andalternatives to therapy were discussed in detail. Specifically, the risks of infection, scarring, bleeding, prolonged wound healing, incomplete removal, allergy to anesthesia, nerve injury and recurrence were addressed. Prior to the procedure, the treatment site was clearly identified and confirmedby the patient. All components of Cameron Protocol/PAUSE Rule completed. STAGE I: The patient was placed on the operating table. The cancer was identified and outlined. The entire surgical field was prepped with hibiclens. The surgical site was anesthetized using Lidocaine 1% withepinephrine 1:100,000 buffered with sodium bicarbonate 8.4% in a 1:10 ratio.The area of clinically apparent tumor was debulked with a 2 mm curette. The layer of tissue was then surgically excised using a #15 blade and was then transferred onto a specimen sheet maintaining the orientation of the specimen. Hemostasis was obtained using monopolar electrodesiccation. The wound site was then covered with a dressing while the tissue samples were processed for examination. The specimen was oriented, mapped and divided. Each section was then inked and processed in the Mohs lab using the Mohs protocol and submitted for frozen section. The histopathologic sections were reviewed by the surgeon in conjunction with the reference map. Total blocks: 1 Total slides: 3 Frozen sections were examined by the surgeon. No additional tumor was identified. No additional histologic findings appreciated. Cell morphology: N/A. No tumor seen. Pathological pattern: N/A. No tumor seen. Depth of invasion: N/A. No tumor seen. Scar tissue: Not Present Perineural invasion: Not Present Inflammation obscuring possible tumor presence: Not Present [facility] CLIA # [id number] Mohs laboratory technologist: Shila St MD REPAIR: Intermediate Primary Surgeon: Shila St MD Hazmat Cdl Driver: N/A Repair Size: 4.2 cm Sutures: 4-0 monocryl, 6-0 prolene The defect was identified and a marking pen was used to plan the repair. The area was infiltrated with Lidocaine 1% with epinephrine 1:100,000 buffered with sodium bicarbonate 8.4% in a 1:10 ratio, prepped with hibiclens and draped with sterile towels. The wound was debeveled and undermined widely. Cones were excised within relaxed skin tension lineson both sides of the defect. Hemostasis was obtained using monopolar electrodesiccation. The dermisand subcutaneous tissue were then approximated using buried vertical mattress sutures. Percutaneoussimple running sutures were carefully placed for maximum eversion and meticulous wound edge approximation. Careful attention was paid to avoid distorting any nearby free margins. The wound was cleansed with saline and ointment was applied along the wound surface. A sterile pressure dressing was applied. Wound care instructions were given verbally and in writing. The patient left the operating suite in stable condition. Patient was informed that additional refinement of the resulting surgical scar may be used as a second stage of this reconstruction. Dr. St performed the entire surgery, and documentation used to initiate this operative report.I entered the information in our [employer] DocFlowsheet with the information provided by Dr. St on her handwritten, paper format, surgical worksheet, which was then used to initiate the create of this note. Dr. St then reviewed and edited the note as needed to complete the note. Emily Apple GENERAL FOUNDRY WORKER I have reviewed the note, edited it as necessary and performed the entire procedure. Shila St MD Dental Appliance Fixer 12/01/2022 ICAL REHABILITATION COORDINATOR documented in this encounter Plan of Treatment Upcoming Encounters Date Type Department Care Team (Late st Contact Info) Description 04/21/2025 9:30 AM CDT Office Visit [facility] - Dermatology [address] [place] [address] Raghavendra Barajas MD [address] [facility] [place] [id number] documented as of this encounter Procedures Procedure Name Priority Date/Time Associated Diagnosis Comments WI CHMSRG MOHS MG TQ H/N/H/F/G 1ST STAG 5 BLOC Routine 12/01/2022 1:29 PM CLINICAL REHABILITATION COORDINATOR Basal cell carcinoma (BCC) of left cheek WI INTMD WND REPAIR FACE,FACIAL 2.5-5 Routine 12/01/2022 1:29 PM CLINICAL REHABILITATION COORDINATOR Basal cell carcinoma (BCC) of left cheek documented in this encounter Results * WI INTMD WND REPAIR FACE,FACIAL 2.5-5, WI CHMSRG MOHS MG TQ H/N/H/F/G 1ST STAG 5 BLOC (12/01/2022 1:29 PM CLINICAL REHABILITATION COORDINATOR) Narrative Shila St MD - 12/01/2022 1:29 PM CLINICAL REHABILITATION COORDINATOR Shila St MD ? 12/03/2022 10:38 PM Mohs Micrographic Surgery Operative Note Procedure: Mohs micrographic surgery Date of service: 12/01/2022 Location: left cheek Preop diagnosis: Basal cell carcinoma Postop diagnosis: Basal cell carcinoma Mohs AUC score: 8 Number of stages: 1 Preop size: 2.0x1.0 cm Postop size: 3.0x2.3 cm Depth of final defect: adipose Previous dermpath accession #: [id number] Repair type: intermediate Mohs accession #: [id number] Surgeon and Pathologist: Shila St MD served as both surgeon and pathologist. No other physician was involved in the cancer removal or pathology interpretation. Assistants: N/A Indications for Mohs Surgery Removal of the patient's tumor is complicated by the following clinical features: Clinical area critical for tissue conservation (Area M: cheeks, forehead, scalp, neck, jawline, pretibial surface). Based on my medical judgement, Mohs surgery is the most appropriate treatment for this cancer compared to other treatments. I discussed alternative treatments to Mohs surgery and specifically discussed the risks and benefits of curettage, excision with permanent sections, and foregoing treatment. The rationale for Mohs was explained to the patient and consent was obtained. The risks, benefits and alternatives to therapy were discussed in detail. Specifically, the risks of infection, scarring, bleeding, prolonged wound healing, incomplete removal, allergy to anesthesia, nerve injury and recurrence were addressed. Prior to the procedure, the treatment site was clearly identified and confirmed by the patient. All components of Cameron Protocol/PAUSE Rule completed. STAGE I: The patient was placed on the operating table. The cancer was identified and outlined. The entire surgical field was prepped with hibiclens. The surgical site was anesthetized using Lidocaine 1% with epinephrine 1:100,000 buffered with sodium bicarbonate 8.4% in a 1:10 ratio.The area of clinically apparent tumor was debulked with a 2 mm curette. The layer of tissue was then surgically excised using a #15 blade and was then transferred onto a specimen sheet maintaining the orientation of the specimen. Hemostasis was obtained using monopolar electrodesiccation. The wound site was then covered with a dressing while the tissue samples were processed for examination. The specimen was oriented, mapped and divided. Each section was then inked and processed in the Mohs lab using the Mohs protocol and submitted for frozen section. The histopathologic sections were reviewed by the surgeon in conjunction with the reference map. Total blocks: 1 Total slides: 3 Frozen sections were examined by the surgeon. No additional tumor was identified. No additional histologic findings appreciated. Cell morphology: N/A. No tumor seen. Pathological pattern: N/A. No tumor seen. Depth of invasion: N/A. No tumor seen. Scar tissue: Not Present Perineural invasion: Not Present Inflammation obscuring possible tumor presence: Not Present [facility] CLIA # [id number] Mohs laboratory technologist: Shila St MD REPAIR: Intermediate Primary Surgeon: Shila St MD Hazmat Cdl Driver: N/A Repair Size: 4.2 cm Sutures: 4-0 monocryl, 6-0 prolene The defect was identified and a marking pen was used to plan the repair. The area was infiltrated with Lidocaine 1% with epinephrine 1:100,000 buffered with sodium bicarbonate 8.4% in a 1:10 ratio, prepped with hibiclens and draped with sterile towels. The wound was debeveled and undermined widely. Cones were excised within relaxed skin tension lines on both sides of the defect. Hemostasis was obtained using monopolar electrodesiccation. The dermis and subcutaneous tissue were then approximated using buried vertical mattress sutures. Percutaneous simple running sutures were carefully placed for maximum eversion and meticulous wound edge approximation. Careful attention was paid to avoid distorting any nearby free margins. The wound was cleansed with saline and ointment was applied along the wound surface. A sterile pressure dressing was applied. Wound care instructions were given verbally and in writing. The patient left the operating suite in stable condition. Patient was informed that additional refinement of the resulting surgical scar may be used as a second stage of this reconstruction. Dr. St performed the entire surgery, and documentation used to initiate this operative report. I entered the information in our [employer] DocFlowsheet with the information provided by Dr. St on her handwritten, paper format, surgical worksheet, which was then used to initiate the create of this note. Dr. St then reviewed and edited the note as needed to complete the note. Emily Apple GENERAL FOUNDRY WORKER I have reviewed the note, edited it as necessary and performed the entire procedure. Shila St MD Dental Appliance Fixer 12/01/[address] MD PROCEDURE/MINOR SURG ICAL ORDERABLES documented in this encounter Visit Diagnoses Diagnosis Basal cell carcinoma (BCC) of left cheek- Primary documented in this encounter Care Teams Electroplating Laborer Relationship Specialty Start Date End Date [facility] ([facility]) [address] [place] [address] PCP - General 06/17/18 documented as of this encounter
--- OUTSIDE RECORDS SUMMARY | 2024-10-26 21:08 | XMS_ITS | Encounter Summary ---
Author Organization [facility] Address [address] [facility] [place] [address] Care Team Providers Care Dental Equipment Technician Name Role Phone [facility] ([facility]) Primary Care Provi lesli Reason for Visit * Reason Onset Date Comments Swelling 12/04/2022 Encounter Details Date Type Department Care Team (Late st Contact Info) Description 12/04/2022 Telephone [facility] [address] [place] [address] Elba Soto LPN Swelling Social History Tobacco Use Types Packs/Day Years Used Date Smoking Tobacco: Every Day Cigarettes Smokeless Tobacco: Never Alcohol Use Standard Drinks/Week Comments No 0 (1 standard drink = 0.6 oz pur e alcohol) Sex and Gender Information Value Date Recorded Sex Assigned at Not on file Gender Identity Not on file Sexual Orientation Not on file documented as of this encounter Miscellaneous Notes * Telephone Encounter - Elba Soto LPN - 12/04/2022 12:55 PM CELL ROOM OPERATOR Images from the original note were not included. The patient sent us a photo of his swelling and wanted to know if this was normal. Tuyet, Our P[facility] called him and he was instructed to apply ice as directed on his instructions.Elba Soto LPN ROOM OPERATOR documented in this encounter Plan of Treatment Upcoming Encounters Date Type Department Care Team (Late st Contact Info) Description 04/21/2025 9:30 AM CDT Office Visit [facility] [address] [facility] [place] [address] Raghavendra Barajas MD [address] [facility] [place] [address] documented as of this encounter Visit Diagnoses Not on filedocumented in this encounter Care Teams Dental Equipment Technician Relationship Specialty Start Date End Date [facility] ([facility]) [address] [place] [address] PCP - General 06/17/18 documented as of this encounter
--- OUTSIDE RECORDS SUMMARY | 2024-10-26 21:08 | XMS_ITS | Encounter Summary ---
Author Organization [facility] Address [address] [facility] [address] Care Team Providers Care Field Service Tech Name Role Phone [facility] Primary Care Provi lesli Reason for Visit * Reason Onset Date Comments Med Question 07/27/2023 Encounter Details Date Type Department Care Team (Late st Contact Info) Description 07/27/2023 Telephone [facility] Scheduling [address] [place] [address] Camilo Mckeon MD [address] [phone] Med Question Social History Tobacco Use Types Packs/Day Years [...] encounter Miscellaneous Notes * Telephone Encounter - Roselyn Mirza MA - 07/27/2023 1:15 PM CDT Called and spoke to Aida, lead case manager/caregiver. Adv'd her that it was okay to use cream/shampoo 3X's a week instead of 4, per Mike. No other needs at this time. Thanked and ended call. Roselyn Mirza MA * Telephone Encounter - Anaya Johnson - 07/27/2023 8:42 AM CDT Patient called about his Nizoral cream and shampoo. Patient has been taking them 4 times a day, he is wondering if he can go to 3 times a week instead. n [phone] documented in this encounter Plan of Treatment Upcoming Encounters Date Type Department Care Team (Late st Contact Info) Description 04/21/2025 9:30 AM CDT Office Visit [facility] [address] [facility] [place] [address] Raghavendra Barajas MD [address] [facility] [place] [address] documented as of this encounter Visit Diagnoses Not on filedocumented in this encounter Care Teams Field Service Tech Relationship Specialty Start Date End Date [facility] [address] [place] [address] PCP - General 06/17/18 documented as of this encounter
--- OUTSIDE RECORDS SUMMARY | 2024-10-26 21:08 | XMS_ITS | Encounter Summary ---
Author Organization [facility] Address [address] [facility] [place] [address] Care Team Providers Care Mammal Control Agent Name Role Phone [facility] ([facility]) Primary Care Provi lesli Reason for Visit * Reason Onset Date Comments Nurse Only 10/10/2022 Encounter Details Date Type Department Care Team (Late st Contact Info) Description 10/10/2022 Telephone [facility] [address] [place] [phone] Zainab Espino MD [address] [place] [address] Nurse Only Social History Tobacco Use Types Packs/Day Years [...] encounter Miscellaneous Notes * Telephone Encounter - Sindy Banks - 10/11/2022 10:33 AM CST [facility] nurse wanted biospy results details. Advised BCC and patient needs Mohs surgery.Mohs scheduling phone number given. Sindy Bakns CONTROL CLERK * Telephone Encounter - Sandra Odom - 10/10/2022 9:25 AM CST [phone] Dr Espino called on pt , skin test results are positive , nurse need to speak with office and need paperwork of pt diagnosis CONTROL CLERK documented in this encounter Plan of Treatment Upcoming Encounters Date Type Department Care Team (Late st Contact Info) Description 04/21/2025 9:30 AM CDT Office Visit [facility] [address] [facility] [place] [phone] Raghavendra Barajas MD [address] [facility] [place] [phone] documented as of this encounter Visit Diagnoses Not on filedocumented in this encounter Care Teams Mammal Control Agent Relationship Specialty Start Date End Date [facility] ([facility]) [address] [place] [address] PCP - General 06/17/18 documented as of this encounter
--- OUTSIDE RECORDS SUMMARY | 2024-10-26 21:08 | XMS_ITS | Encounter Summary ---
Author Organization [facility] Address [address] [facility] [place] [address] Care Team Providers Care Television Tube Inspector Name Role Phone [facility] ([facility] Primary Care Provi lesli Reason for Visit * Reason Comments Dermatitis Head, upper body Encounter Details Date Type Department Care Team (Late [facility]) Description 10/16/2023 9:00 AM BLASTING CLAY MINER Office Visit [facility] Dermatology [address] [place] [phone] Camilo Mckeon MD [address] [place], [place] [address] [address] [phone] Other seborrheic dermatitis (Primary Dx); Seborrheic keratosis; History of basal cell cancer Social History Tobacco Use Types Packs/Day Years Used Date Smoking Tobacco: Former Cigarettes Smokeless Tobacco: Never Tobacco Cessation:Counseling Given: Not Answered Alcohol Use Standard Drinks/Week Comments No 0 (1 standard drink = 0.6 oz pur e alcohol) Sex and Gender Information Value Date Recorded Sex Assigned at Not on file Gender Identity Not on file Sexual Orientation Not on file documented as of this encounter Patient Instructions * Patient Instructions* Camilo Mckeon MD - 10/16/2023 9:31 AM BLASTING CLAY MINER Thank you for visiting the [facility] today! Please continue the following instructionsas we discussed in clinic today: 1) Continue the ketoconazole shampoo and ketoconazole cream as you have currently been doing. 2) Start applying the clobetasol 0.05% solution to your scalp once a day as needed for itchy or scale Please return to clinic in 6 months TING CLAY MINER documented in this encounter Progress Notes * Camilo Mckeon MD - 10/16/2023 4:07 PM CST Chief Complaint Patient presents with ??? Dermatitis Head, upper body HPI: Jp Morley a 62 year old male presents for skin exam. Pt's pillowcase cutter is in clinic room with him today. Concerns: 1. Patient wants all spots checked to make sure not cancerous. Present for months to years. No pain, itching, burning, bleeding. No prior treatment. 2. Seborrheic dermatitis Status of condition: Dry and flaky on scalp and face Current treatment: - Ketoconazole 2% shampoo - not applying daily, depends on nurse patient has - Ketoconazole 2% cream - not applying daily, depends on nurse patient has Side effects of treatment: Personal history of skin cancer: - BCC L cheek s/p Mohs 10/03/22 PE: No acute distress. Mood clear/affect appropriate. Alert and oriented. Mucous membranes moist. Sclera anicteric. Skin exam was conducted to include the scalp, face, lips/teeth, lids/conjunctiva, ears, neck, chest, abdomen, back, right and left hands and forearms, right and left leg and feet and was normal with the following exceptions: - [place] scaly plaques on scalp - Brewer-brown stuck on papules on trunk and extremities - 1-2 mm bright red macules scattered across trunk - Multiple scattered, 2-5 mm, evenly pigmented, brewer to brown macules and papules on trunk and extremities - Brewer-brown stuck on papules on trunk and extremities Back and groin skin exam limited by wheelchair and mobility. A/P: Jp was seen today for follow-up. Diagnoses and all orders for this visit: Other seborrheic dermatitis - Moderate, not at goal on scalp, ears, face - Continue use of ketoconazole (Nizoral) 2 % cream; Apply to affected areas on scalp, forehead, between eyebrows, nose, cheeks, chin twice daily. 30 days supply. - Continue use of ketoconazole (Nizoral) 2 % shampoo; Apply to affected dry areas on scalp, forehead, nose, cheeks, chin once daily. Lather and leave on for 3-5 minutes, then wash off. 30 days supply - Start clobetasol 0.05% solution daily PRN itching/scale Multiple benign melanocytic nevi of upper extremity, lower extremity, and trunk - No atypical or concerning moles on exam today - Reviewed ABCDEs of melanoma - Sun protection reviewed, handout provided - Broad-spectrum UVA/B [ZnOx, TiO2, combos w/ avobenzone] sunscreen recommended, pref SPF>30 - Annual FBSE recommended Seborrheic keratosis - Benign, reassured patient. Lentigines - Benign, patient reassured - Skin cancer, sun protection, and photoaging discussed - Broad-spectrum UVA/B [ZnOx, TiO2, combos w/ avobenzone] sunscreen recommended, pref SPF>30 - Sunscreen handout provided History of basal cell carcinoma (BCC) of skin - No evidence of recurrence at previous sites - Sun protection education reviewed, handout provided - Broad-spectrum UVA/B [ZnOx, TiO2, combos w/ avobenzone] sunscreen recommended, pref SPF>30 - [id number] FBSE recommended Sun protection, sunscreen with broad spectrum protection, SPF 30 and above, and self exam discussed. RTC in 6 months Coding Rationale New or est? Established Patient Patient was seen, examined, and discussed with attending physician, Dr. Cardoso. Camilo Mckeon MD [facility] Dermatology Resident PGY4 TING CLAY MINER * Sindy Cardoso MD - 10/16/2023 9:28 AM CST I have seen and examined the patient with the resident and I agree with the findings and plan of care as documented by the resident. Date of Service: 10/16/2023 1. Bunny derm, doing well with itch but still has scale -continue keto shampoo and cream -add clob solution 2. H/o BCC Sindy Cardoso MD TING CLAY MINER documented in this encounter Plan of Treatment Upcoming Encounters Date Type Department Care Team (Late st Contact Info) Description 04/21/2025 9:30 AM CDT Office Visit [facility] [address] [facility], [place] [phone] Raghavendra Barajas MD [address] [facility] [place] [phone] documented as of this encounter Visit Diagnoses Diagnosis Other seborrheic dermatitis- Primary Seborrheic keratosis History of basal cell cancer Personal history of other malignant neoplasm of skin documented in this encounter Care Teams Television Tube Inspector Relationship Specialty Start Date End Date [facility] [address] [place] [address] PCP - General 06/17/18 documented as of this encounter
--- OUTSIDE RECORDS SUMMARY | 2024-10-26 21:08 | XMS_ITS | Referral Summary ---
Author Organization [facility] Address [address] [place] [address] Care Team Providers Care Educational Speech Language Clinician Name [facility] Primary Care Provi lesli Source Comments [facility],non-owned Affiliates and Associated Physician Practices is amultiple site organization consisting of ambulatory clinics and hospital sitesin [place], [place], [place] and [place]. This disclosure is being madepursuant to the Care Everywhere program and may not contain all information available regarding this patient. Last updated 18.[facility] Allergies Active Allergy Reactions Criticality Noted Date Comments Acetaminophen Urticaria,Rash Medium 08/05/2016 Other reaction(s): Redness Haloperidol Malignant Hyperthermia High 02/14/2021 Other reaction(s): Risk for Malignant Hyperthermia Medications * Be aware that medications may not be up to date on this document. Alwaysverify current medications with the patient. Medication Sig Dispensed Refills Start Date End Date Status amLODIPine (NORVASC) 10 MG tablet Take 1 (one) tablet by mouth once daily Active furosemide (LASIX) 40 MG tablet Take 1 (one) tablet by mouth once daily Active glipiZIDE (GLUCOTROL) 10 MG tablet Take 1 (one) tablet by mouth daily before breakfast Active lisinopril (PRINIVIL; ZESTRIL) 20 MG tablet Take 1 (one) tablet by mouth once daily Active PARoxetine (PAXIL) 40 MG tablet Take 1 (one) tablet by mouth once daily Active pantoprazole EC (PROTONIX) 40 MG tablet Take 1 (one) tablet by mouth once daily Active albuterol (PROVENTIL;VENTOLI N) (5 MG/ML) 0.5% nebulizer solution Inhale 0.5 mL by mouth 4 times daily. 0 0 11/14/2013 Active ipratropium (ATROVENT) 0.02 % nebulizer solution Inhale 0.5 mg by mouth 4 times daily. 0 0 11/14/2013 Active Additional Information Patient not taking.Reported on 04/22/2024 traZODone (DESYREL) 50 MG tablet Take 1 Tab by mouth nightly as needed for Insomnia. 0 0 11/14/2013 Active guaifenesin ER 12hr 1200 MG TB12 Take 1,200 mg by mouth every 12 hours. 0 0 11/14/2013 Active Additional Information Patient not taking.Reported on 04/22/2024 enoxaparin (LOVENOX) injection Inject 40 mg subcutaneously once daily. 0 0 11/14/2013 Active Additional Information Patient not taking.Reported on 04/22/2024 predniSONE (DELTASONE) 10 MG tablet Take 3 tabs once daily for 2 days, two tabs once daily for 2 days, one tab once daily for 2 days, then stop. 0 0 11/14/2013 Active Additional Information Patient not taking.Reported on 04/17/2023 ARIPiprazole (ABILIFY) 10 MG tablet Take 1 Tab by mouth once daily. 0 0 11/14/2013 Active polyethylene glycol 3350 (MIRALAX) 17 GM/SCOOP powder 17 (seventeen) g by Enteral Tube route once daily 238 g 03/15/2021 Active amantadine (Symmetrel) 100 MG capsule 01/25/2021 Active aspirin EC (Ecotrin) 81 MG tablet aspirin 81 mg tablet,delayed release Activ e busPIRone (Buspar) 10 MG tablet 04/14/2022 Active dilTIAZem coated beads 24hr (Cardizem CD) 120 MG capsule 09/19/2022 Active ergocalciferol (Drisdol) 1.25 MG (10790 UT) capsule Take 1 (one) capsule by mouth every 30 days Activ e famotidine (Pepcid) 20 MG tablet 10/24/2021 Active losartan (Cozaar) 50 MG tablet 09/06/2022 Active risperiDONE (RisperDAL) 1 MG tablet 09/21/2022 Active tamsulosin (Flomax) 0.4 MG capsule 09/14/2022 Active gabapentin (Neurontin) 400 MG capsule 09/11/2022 Active atorvastatin (Lipitor) 10 MG tablet 01/27/2020 Active Senexon-S 8.6-50 MG tablet 01/09/2022 Active gabapentin (Neurontin) 100 MG capsule 2 (two) capsules Active insulin lispro (HumaLOG;ADMelog) 100 UNIT/ML pen 10/08/2023 Active Lantus vial 10/01/2023 Active potassium chloride ER (Klor-Con M) 20 MEQ tablet 10/10/2023 Active Xarelto 20 MG tablet 09/27/2023 Active traMADol (Ultram) 50 MG tablet 07/13/2023 Active Anoro Ellipta 62.5-25 MCG/ACT inhaler 09/26/2023 Active risperiDONE (RisperDAL) 0.5 MG tablet 10/03/2023 Active sulfamethoxazole-t rimethoprim (Bactrim DS; Septra DS) 800-160 MG tablet Active cefdinir (Omnicef) 300 MG capsule Active benztropine (Cogentin) 0.5 MG tablet Active ammonium lactate (Lac-Hydrin) 12 % lotion Active metoprolol tartrate IR (Lopressor) 50 MG tablet Take 1 (one) tablet by mouth 2 times daily 03/15/2024 Active clobetasol (Temovate) 0.05 % solution Apply affected area on the scalp daily. 30 days supply. 50 mL 5 04/22/2024 Active ketoconazole (Nizoral) 2 % creamIndications:O ther seborrheic dermatitis Apply to affected areas on scalp, forehead, between eyebrows, nose, cheeks, chin twice daily. 30 days supply. 30 g 11 04/22/2024 Active ketoconazole (Nizoral) 2 % shampooIndications :Other seborrheic dermatitis Apply to affected dry areas on scalp, forehead, nose, cheeks, chin once daily. Lather and leave on for 3-5 minutes, then wash off. 30 days supply 120 mL 11 04/22/2024 Active Active Problems Problem Noted Date Diagnosed Date Cellulitis of face 06/13/2022 Chest pain 06/13/2022 Urinary incontinence 06/13/2022 Dependence on supplemental oxygen 11/30/2021 Overview (06/13/2022): Z99.81 - Dependence on supplemental oxygen Added by RAMP Historical Conditions Type 1 diabetes mellitus without complications 0 11/30/2021 Overview (06/13/2022): E10.9 - Type 1 diabetes mellitus without complications Added by RAMP Historical Conditions Body mass index (BMI) of 37.0-37.9 in adult 04/2022 Overview (06/13/2022): Last Assessment & Plan: Condition: stable Educated patient on normal BMI range of 18.5 to 24.9 Advised to monitor nutrition to not exceed caloric needs, or as indicated by PCP in order to maintain a healthy weight and BMI. Advised to engage in aerobic physical activity, if indicated to be safe by PCP, to assist with maintaining a healthy weight and BMI. Advised to follow up with PCP to address nutrition as needed to assist with reaching or maintaining a healthy weight and BMI. Follow up in: three months with PCP BPH (benign prostatic hyperplasia) 11/04/2021 Overview (06/13/2022): Last Assessment & Plan: Condition: stable Jp is encouraged to eat a diet rich on legumes and soybeans, to decrease red meats intake. To eat fish rich on omega-3 such as salmon at least once a week. To drink at least 32 oz of water daily, to drink pomegranate juice, and green tea if approve by the PCP Follow up in: three months with PCP DM type 2 with diabetic mixed hyperlipidemia 04/2022 Overview (06/13/2022): Last Assessment & Plan: Condition: stable Discussed glucose control targets. Educated on: Lifestyle changes, Nutrition, Foot care, Medication compliance and Smoking cessation Follow up in: three months with PCP, Departure Clerk, Rigging Supervisor, Earth Sciences Professor and Established eye medical care evaluation specialist Hypertension associated with diabetes 11/04/2021 Overview (06/13/2022): Last Assessment & Plan: Will continue with IV hydralazine as needed for systolic blood pressure elevation more than 180 Last Assessment & Plan: Will continue with IV hydralazine as needed for systolic blood pressure elevation more than 180 Last Assessment & Plan: Condition: asymptomatic Discussed glucose control targets. Educated on: Lifestyle changes, Nutrition, Foot care, Medication compliance and Smoking cessation Follow up in: three months with PCP, Departure Clerk, Rigging Supervisor, Earth Sciences Professor and Established eye medical care evaluation specialist Gastroesophageal reflux disease without esophagi tis 11/04/2021 Overview (06/13/2022): Last Assessment & Plan: Condition: stable Reviewed use of antacid medication and/or diet modifications of decreasing caffeine, spicy foods, chocolate, and avoiding alcohol, tobacco, NSAIDs, and reducing citrus acids. Follow up in: three months with PCP Morbid (severe) obesity due to excess calories 0 11/04/2021 Overview (06/13/2022): Last Assessment & Plan: Condition: stable Co-morbidities: Type 2 Diabetes, Hypertension, Hyperlipidemia and GERD Follow up in: three months with PCP Routine health maintenance 11/04/2021 Overview (06/13/2022): Last Assessment & Plan: Condition: stable Follow up in: three months with PCP Schizophrenia, unspecified 11/04/2021 Overview (06/13/2022): Last Assessment & Plan: Condition: stable No recent mental health visit. Advised to follow up Medications: Taking medications as prescribed If taking medications, do not stop treatment without consulting healthcare provider. If symptoms worsen or do not improve/stabilize, notify health care provider right away. If thoughts of harming self or others notify health care provider immediately &/or seek urgent/emergent care including calling Suicide Hotline ( ) or 911. Follow up in three months with Psychologist/Counselor/SupportGroup/Psychiatrist and PCP Altered mental status 02/12/2021 CVA (cerebrovascular accident) 07/06/2020 Chronic atrial fibrillation 06/05/2020 Overview (06/13/2022): Last Assessment & Plan: Condition: stable Follow up in: three months with PCP Sick sinus syndrome 01/27/2020 Presence of cardiac pacemaker 01/02/2020 Laceration of right side of back 08/15/2019 Coronary atherosclerosis 06/26/2018 Chronic anxiety 06/26/2018 Congestive heart failure 06/26/2018 Overview (06/13/2022): Last Assessment & Plan: Condition: stable Follow up in: three months with PCP Accelerated hypertension 04/03/2018 Overview (06/13/2022): Last Assessment & Plan: Will give him lisinopril but double the dose. Id will recheck his blood pressure and add more medicine if needed. He is also getting Lasix for congestive heart failure. Acute on chronic diastolic (congestive) heart fa ilure 04/03/2018 Overview (06/13/2022): Last Assessment & Plan: Her last echocardiogram in our system is from August 2017 showing normal ejection fraction, hyperdynamic LVH. He presented with new pleural effusion she has mild and elevation of pro BNP. He was treated with Lasix IV and BiPAP machine overnight. The patient is alert awake and oriented now breath high agitated and wants to be discharged home right away. I would like to give more Lasix to keep him here for another day or 2 until he is more stable, but it looks like patient does not agree with my plan. Bipolar affective disorder in remission 04/03/20 18 Overview (06/13/2022): Last Assessment & Plan: Will continue his Risperdal. Last Assessment & Plan: Will continue his Risperdal. H/O noncompliance with medic al treatment, presenting hazards to health 04/03/2018 Overview (06/13/2022): Last Assessment & Plan: Patient sometimes does not use his oxygen, he had a CPAP machine in the past but did not use it, sometimes he does not take his medications, continues to smoke cigarettes. This was discussed with the patient and explained the importance of being compliant. Depression 03/22/2018 Respiratory acidosis 03/22/2018 Overview (06/13/2022): Last Assessment & Plan: Severe persistent respiratory acidosis It had been discussed earlier with the family, patient's POA and patient as well that with worsening of the respiratory status prognosis is very poor and further correction patient will require intubation. However patient as well as patient's POA declined intubation. Patient agreed to noninvasive measures including CPR, IV and oral medications but no intubation. The Will change the patient's code status to limited. Acute on chronic respiratory failure with hyperc apnia 11/11/2017 Overview (06/13/2022): Last Assessment & Plan: This is with hypercapnia and hypoxemia, present on admission. He presented with respiratory rate of 29, oxygen saturation 86%, unable to speak in full sentences. All night he was ruled BiPAP machine. Currently BiPAP is off, he is up in a chair, huffing and puffing, requesting to be discharged home right now. I explained to the patient that he needs more treatment to be were stable before he will be discharged home. He pulled his oxygen away, pulled his quality assurance monitor final way and tells me to call the ambulance for him. RN is present with me in the room. RN explain the patient again about complications a living, but patient does not care isn't wants to leave the hospital right now. Tobacco abuse 11/11/2017 Overview (06/13/2022): Last Assessment & Plan: Patient continues to smoke. He who did wound to specify how much. He tells me is going to quit. Fatigue 05/12/2016 Hypothyroidism 05/12/2016 Shortness of breath 05/12/2016 Tobacco dependence syndrome 05/12/2016 Diabetes mellitus 05/12/2016 Overview (06/13/2022): Last Assessment & Plan: Mid, given the fact that he was given high-dose steroid it will go up. Will adjust basal bolus insulin. Last Assessment & Plan: Mid, given the fact that he was given high-dose steroid it will go up. Will adjust basal bolus insulin. Last Assessment & Plan: Condition: stable Discussed glucose control targets. Educated on: Lifestyle changes, Nutrition, Foot care and Medication compliance Follow up in: three months with PCP, Departure Clerk, Rigging Supervisor, Earth Sciences Professor and Established eye medical care evaluation specialist Tricuspid insufficiency 05/12/2016 COPD exacerbation 01/14/2015 Overview (06/13/2022): Overview: COPD Last Assessment & Plan: Chest x-ray was consistent with mild pulmonary congestion but no infiltrates. Start on IVSolu-Medro Duo nebs every 4 hr Albuterol in between as needed per respiratory protocol Nuisance Wildlife Control Operator consult Last Assessment & Plan: Condition: stable Reviewed trigger avoidance and reviewed proper use of inhalers and rescue medications. Reviewed concerning signs/symptoms and ER precautions. Follow up in: three months with PCP COPD Last Assessment & Plan: Chest x-ray was consistent with mild pulmonary congestion but no infiltrates. Start on IVSolu-Medro Duo nebs every 4 hr Albuterol in between as needed per respiratory protocol Nuisance Wildlife Control Operator consult Chronic respiratory failure 11/03/2013 Obstructive sleep apnea syndrome 11/03/2013 Overview (06/13/2022): Last Assessment & Plan: This is not treated. Patient does not give be straightforward answers. Looks like he had CPAP she did 1 time, but does not have it now, does not use any CPAP machine at home currently. According to our knowledge from prior hospitalizations it times patient does not even uses oxygen. I had another conversation with the patient about the importance of CPAP machine in his case because he retains CO2. Patient tells me that he [facility] and get the machine. I really do not know the details. During all the conversation patient was repeating ? I want to go home ? Resolved Problems Problem Noted Date Diagnosed Date Resolved Date Pneumonia 06/13/2022 07/11/2022 Immunizations Name Administration Dates Next Due INFLUENZA 11/04/2013 PNEUMOCOCCAL PPSV23 11/05/2013 Social History Tobacco Use Types Packs/Day Years Used Date Smoking Tobacco: Former Cigarettes Smokeless Tobacco: Never Tobacco Cessation:Counseling Given: Not Answered Alcohol Use Standard Drinks/Week Comments No 0 (1 standard drink = 0.6 oz pur e alcohol) Sex and Gender Information Value Date Recorded Sex Assigned at Not on file Gender Identity Not on file Sexual Orientation Not on file Last Filed Vital Signs Vital Sign Reading Time Taken Comments Blood Pressure 114/64 03/15/2021 3:05 PM CDT Pulse 69 03/15/2021 3:05 PM CDT Temperature 36.9 ??C (98.5 ??F) 03/15/2021 3:05 PM CD T Respiratory Rate 16 03/15/2021 3:05 PM CDT Oxygen Saturation 95% 03/15/2021 3:05 PM CDT Inhaled Oxygen Concentration 40% 11/13/2013 1 0:01 PM [facility] Weight 81.6 kg (180 lb) 03/15/2021 12:00 AM CDT Height 162.6 cm (5' 4 ) 03/15/2021 12:00 AM CDT Body Mass Index 30.9 03/15/2021 12:00 AM CDT Plan of Treatment Upcoming Encounters Date Type Department Care Team (Late st Contact Info) Description 04/21/2025 9:30 AM CDT Office Visit [facility] - Dermatology [address] [place] [address] Raghavendra Barajas MD [address] [facility] [address] Procedures Procedure Name Priority Date/Time Associated Diagnosis Comments COMPREHENSIVE METABOLIC PANEL STAT 03/15/2021 2:20 AM CDT HEMOGLOBIN A1C AM Draw 11/14/2013 3:59 AM [facility] from Last 3 Months or Most Recently Relevant to Health Maintenance Results * (ABNORMAL) COMPREHENSIVE METABOLIC PANEL (03/15/2021 2:20 AM CDT) BUN 27(H) 7 - 26 mg/dL 03/15/2021 2:56 AM [facility] Creatinine 0.63(L) 0.71 - 1.16 mg/dL 03/15/2021 2:56 AM [facility] Sodium 140 136 - 145 mmol/L 03/15/2021 2:56 AM [facility] Potassium 4.1 3.5 - 4.5 mmol/L 03/15/2021 2:56 AM [facility] Chloride 103 98 - 107 mmol/L 03/15/2021 2:56 AM [facility] CO2 32(H) 22 - 29 mmol/L 03/15/2021 2:56 AM [facility] Glucose 95 70 - 115 mg/dL 03/15/2021 2:56 AM [facility] Calcium 9.1 8.4 - 10.2 mg/dL 03/15/2021 2:56 AM [facility] Protein Total 7.5 6.0 - 8.3 g/dL 03/15/2021 2:56 AM [facility] Albumin 3.2(L) 3.4 - 5.0 g/dL 03/15/2021 2:56 AM [facility] Bilirubin Total 0.5 0.2 - 1.2 mg/dL 03/15/2021 2:56 AM [facility] Alkaline Phosphatase 83 40 - 150 U/L 03/15/2021 2:56 AM [facility] ALT 24 5 - 55 U/L 03/15/2021 2:56 AM [facility] AST 21 5 - 34 U/L 03/15/2021 2:56 AM [facility] Anion Gap 9 8 - 18 03/15/2021 2:56 AM [facility] BUN/Creatinine Ratio 43(H) 7 - 23 03/15/2021 2:56 AM [facility] Osmolality Calculated 295 270 - 300 mOsm/kg 03/15/2021 2:56 AM [facility] Albumin/Globulin Ratio 0.7(L) 1.1 - 2.3 03/15/2021 2:56 AM [facility] eGFR by CKD-EPI >90 >=90 mL/min/1.7 3 m2 03/15/2021 2:56 AM [facility] Blood BLOOD SPECIMEN / Unknown Venipuncture / Unknown 03/15/2021 2:20 AM CDT 03/15/2021 2:28 AM CDT Tenzin Chawla MD LAB - CHEMISTRY ORDERABLES Performing Organization Address City/[facility]/[place] de Phone Number [facility] [address] [place] [id number] [phone] * (ABNORMAL) HEMOGLOBIN A1C (11/14/2013 3:59 AM [facility]) Hemoglobin A1c 9.2(H) 4.2 - 6.3 % 11/14/2013 4:35 AM [facility] Estimated Average Glucose 217 mg/dL 11/14/2013 4:35 AM [facility] Whole Blood BLOOD SPECIMEN WITH EDTA / Unknown 11/14/2013 3:59 AM [facility] 11/14/2013 4:04 AM [facility] Bk Lemus MD LAB - CHEMISTRY LAKISHA CRAIG [facility] [address] [place] [address] from Last 3 Months or Most Recently Relevant to Health Maintenance Advance Directives Documents on File Type Date Recorded Patient Treatment Plant Mechanic Expl anation Adv Directive/Living Will/POA 11/15/2013 9:39 PM * FULL RESUSCITATION (Latest Code Status on File) Date Activated Date Inactivated Comments 11/14/2013 12:19 PM 03/14/2021 11:52 PM * LIMITED RESUSCITATION Date Activated Date Inactivated Comments 11/01/2013 8:42 PM 11/14/2013 12:19 PM Question Answer Comments : NO CHEST COMPRESSION : NO INVASIVE MECHANICAL VENTILATI ON : NO INTUBATION : NO CARDIOVERSION : NO DEFIBRILLATION : NO PACEMAKER : NO VASOPRESSORS : NO CARDIOACTIVE DRUGS * LIMITED RESUSCITATION Date Activated Date Inactivated Comments 11/01/2013 8:03 PM 11/01/2013 8:42 PM Question Answer Comments : NO CHEST COMPRESSION : NO INVASIVE MECHANICAL VENTILATI ON : NO INTUBATION * DNR WITH COMFORT MEASURES Date Activated Date Inactivated Comments 11/01/2013 7:02 PM 11/01/2013 8:03 PM Question Answer Comments Comfort Measures: yes * FULL RESUSCITATION Date Activated Date Inactivated Comments 11/01/2013 7:00 PM 11/01/2013 7:00 PM Care Teams Educational Speech Language Clinician Relationship Specialty Start Date End Date [facility] ([facility]) [address] [id number] PCP - General 06/17/18
--- OUTSIDE RECORDS SUMMARY | 2024-10-26 21:08 | XMS_ITS | Encounter Summary ---
Author Organization [facility] Address [address] [place] [address] Care Team Providers Care Pit Operator Name Role Phone [facility] ([facility]) Primary Care Provi lesli Reason for Visit * Reason Onset Date Comments Med Question 07/27/2023 Encounter Details Date Type Department Care Team (Late st Contact Info) Description 07/27/2023 Telephone [facility] - General Dermatology [address] , [facility] [address] [place] [address] Camilo Mckeon MD [address] [facility] [address] [place] [address] Med Question Social History Tobacco Use [...] Encounter - Roselyn Mirza MA - 07/27/2023 12:47 PM CDT *duplicate encounter* Closing due to another encounter open(same day and same reason) Roselyn Mirza MA * Telephone Encounter - Ismael Pedro - 07/27/2023 11:37 AM CDT Caregiver called in concerning medication ketoconazole (Nizoral) 2 % cream asking if they could apply medication once daily 3 times weekly instead of twice daily. Please advise documented in this encounter Plan of Treatment Upcoming Encounters Date Type Department Care Team (Late st Contact Info) Description 04/21/2025 9:30 AM CDT Office Visit [facility] - Dermatology [address] [facility] [place] [address] Raghavendra Barajas MD [address] [facility] [place] [place] [address] documented as of this encounter Visit Diagnoses Not on filedocumented in this encounter Care Teams Pit Operator Relationship Specialty Start Date End Date [facility] ([facility]) [address] [place] [address] PCP - General 06/17/18 documented as of this encounter
--- OUTSIDE RECORDS SUMMARY | 2024-10-26 21:08 | XMS_ITS | Patient Health Summary ---
Author Organization [facility] Address [address] [place] [address] Care Team Providers Care Shaving Machine Operator Name Role Phone [facility] Primary Care Provi lesli Note from [facility],non-owned Affiliates and Associated Physician Practices is amultiple site organization consisting of ambulatory clinics and hospital sitesin [place], [place], [place] and [place]. This disclosure is being madepursuant to the Care Everywhere program and may not contain all information available regarding this patient. Last updated 18.[facility] Allergies * Acetaminophen(Urticaria,Rash) -Medium Criticality * Haloperidol(Malignant Hyperthermia) -High Criticality Medications * Be aware that medications may not be up to date on this document. Alwaysverify current medications with the patient. * amLODIPine (NORVASC) 10 MG tablet Take 1 (one) tablet by mouth once daily * furosemide (LASIX) 40 MG tablet Take 1 (one) tablet by mouth once daily * glipiZIDE (GLUCOTROL) 10 MG tablet Take 1 (one) tablet by mouth daily before breakfast * lisinopril (PRINIVIL; ZESTRIL) 20 MG tablet Take 1 (one) tablet by mouth once daily * PARoxetine (PAXIL) 40 MG tablet Take 1 (one) tablet by mouth once daily * pantoprazole EC (PROTONIX) 40 MG tablet Take 1 (one) tablet by mouth once daily * albuterol (PROVENTIL;VENTOLIN) (5 MG/ML) 0.5% nebulizer solution(Started 11/14/2013) Inhale 0.5 mL by mouth 4 times daily. * ipratropium (ATROVENT) 0.02 % nebulizer solution(Started 11/14/2013) Inhale 0.5 mg by mouth 4 times daily. * traZODone (DESYREL) 50 MG tablet(Started 11/14/2013) Take 1 Tab by mouth nightly as needed for Insomnia. * guaifenesin ER 12hr 1200 MG TB12(Started 11/14/2013) Take 1,200 mg by mouth every 12 hours. * enoxaparin (LOVENOX) injection(Started 11/14/2013) Inject 40 mg subcutaneously once daily. * predniSONE (DELTASONE) 10 MG tablet(Started 11/14/2013) Take 3 tabs once daily for 2 days, two tabs once daily for 2 days, one tab once daily for 2 days, then stop. * ARIPiprazole (ABILIFY) 10 MG tablet(Started 11/14/2013) Take 1 Tab by mouth once daily. * polyethylene glycol 3350 (MIRALAX) 17 GM/SCOOP powder(Started 03/15/2021) 17 (seventeen) g by Enteral Tube route once daily * amantadine (Symmetrel) 100 MG capsule(Started 01/25/2021) * aspirin EC (Ecotrin) 81 MG tablet aspirin 81 mg tablet,delayed release * busPIRone (Buspar) 10 MG tablet(Started 04/14/2022) * dilTIAZem coated beads 24hr (Cardizem CD) 120 MG capsule(Started 09/19/2022) * ergocalciferol (Drisdol) 1.25 MG (07885 UT) capsule Take 1 (one) capsule by mouth every 30 days * famotidine (Pepcid) 20 MG tablet(Started 10/24/2021) * losartan (Cozaar) 50 MG tablet(Started 09/06/2022) * risperiDONE (RisperDAL) 1 MG tablet(Started 09/21/2022) * tamsulosin (Flomax) 0.4 MG capsule(Started 09/14/2022) * gabapentin (Neurontin) 400 MG capsule(Started 09/11/2022) * atorvastatin (Lipitor) 10 MG tablet(Started 01/27/2020) * Senexon-S 8.6-50 MG tablet(Started 01/09/2022) * gabapentin (Neurontin) 100 MG capsule 2 (two) capsules * insulin lispro (HumaLOG;ADMelog) 100 UNIT/ML pen(Started 10/08/2023) * Lantus vial(Started 10/01/2023) * potassium chloride ER (Klor-Con M) 20 MEQ tablet(Started 10/10/2023) * Xarelto 20 MG tablet(Started 09/27/2023) * traMADol (Ultram) 50 MG tablet(Started 07/13/2023) * Anoro Ellipta 62.5-25 MCG/ACT inhaler(Started 09/26/2023) * risperiDONE (RisperDAL) 0.5 MG tablet(Started 10/03/2023) * sulfamethoxazole-trimethoprim (Bactrim DS; Septra DS) 800-160 MG tablet * cefdinir (Omnicef) 300 MG capsule * benztropine (Cogentin) 0.5 MG tablet * ammonium lactate (Lac-Hydrin) 12 % lotion * metoprolol tartrate IR (Lopressor) 50 MG tablet(Started 03/15/2024) Take 1 (one) tablet by mouth 2 times daily * clobetasol (Temovate) 0.05 % solution(Started 04/22/2024) Apply affected area on the scalp daily. 30 days supply. 5 refills by 04/22/2025 * ketoconazole (Nizoral) 2 % cream(Started 04/22/2024) Apply to affected areas on scalp, forehead, between eyebrows, nose, cheeks, chin twice daily. 30 days supply. 11 refills by 04/22/2025 * ketoconazole (Nizoral) 2 % shampoo(Started 04/22/2024) Apply to affected dry areas on scalp, forehead, nose, cheeks, chin once daily. Lather and leave on for 3-5 minutes, then wash off. 30 days supply 11 refills by 04/22/2025 Active Problems Problem Noted Date Diagnosed Date Cellulitis of face 06/13/2022 Chest pain 06/13/2022 Urinary incontinence 06/13/2022 Dependence on supplemental oxygen 11/30/2021 Type 1 diabetes mellitus without complications 0 11/30/2021 Body mass index (BMI) of 37.0-37.9 in adult 04/2022 BPH (benign prostatic hyperplasia) 11/04/2021 DM type 2 with diabetic mixed hyperlipidemia 04/2022 Hypertension associated with diabetes 11/04/2021 Gastroesophageal reflux disease without esophagi tis 11/04/2021 Morbid (severe) obesity due to excess calories 0 11/04/2021 Routine health maintenance 11/04/2021 Schizophrenia, unspecified 11/04/2021 Altered mental status 02/12/2021 CVA (cerebrovascular accident) 07/06/2020 Chronic atrial fibrillation 06/05/2020 Sick sinus syndrome 01/27/2020 Presence of cardiac pacemaker 01/02/2020 Laceration of right side of back 08/15/2019 Coronary atherosclerosis 06/26/2018 Chronic anxiety 06/26/2018 Congestive heart failure 06/26/2018 Accelerated hypertension 04/03/2018 Acute on chronic diastolic (congestive) heart fa ilure 04/03/2018 Bipolar affective disorder in remission 04/03/20 18 H/O noncompliance with medic al treatment, presenting hazards to health 04/03/2018 Depression 03/22/2018 Respiratory acidosis 03/22/2018 Acute on chronic respiratory failure with hyperc apnia 11/11/2017 Tobacco abuse 11/11/2017 Fatigue 05/12/2016 Hypothyroidism 05/12/2016 Shortness of breath 05/12/2016 Tobacco dependence syndrome 05/12/2016 Diabetes mellitus 05/12/2016 Tricuspid insufficiency 05/12/2016 COPD exacerbation 01/14/2015 Chronic respiratory failure 11/03/2013 Obstructive sleep apnea syndrome 11/03/2013 Resolved Problems Problem Noted Date Diagnosed Date Resolved Date Pneumonia 06/13/2022 07/11/2022 Immunizations * INFLUENZA(Given 11/04/2013) * PNEUMOCOCCAL PPSV23(Given 11/05/2013) Social History Tobacco Use Types Packs/Day Years [...] Oxygen Concentration 40% 11/13/2013 1 0:01 PM BOAT HAND Weight 81.6 kg (180 lb) 03/15/2021 12:00 AM CDT Height 162.6 cm (5' 4 ) 03/15/2021 12:00 AM CDT Body Mass Index 30.9 03/15/2021 12:00 AM CDT Procedures * DC CHMSRG MOHS MG TQ H/N/H/F/G 1ST STAG 5 BLOC(Performed 12/01/2022) Performed for Basal cell carcinoma (BCC) of left cheek * DC INTMD WND REPAIR FACE,FACIAL 2.5-5(Performed 12/01/2022) Performed for Basal cell carcinoma (BCC) of left cheek * DC TANGNTL BX SKIN SINGLE LES(Performed 10/03/2022) Performed for Neoplasm of uncertain behavior of skin * DERMATOPATHOLOGY(Performed 10/03/2022) Performed for Neoplasm of uncertain behavior of skin * SURESWAB HSV 1+2 DNA PCR(Performed 06/22/2022) Performed for Neoplasm of uncertain behavior of skin * VARICELLA ZOSTER PCR(Performed 06/22/2022) Performed for Neoplasm of uncertain behavior of skin * CARDIAC EKG ORDER(Performed 03/16/2021) * URINALYSIS REFLEX TO MICROSCOPIC NO CULTURE(Performed 03/15/2021) * TROPONIN I(Performed 03/15/2021) * TROPONIN I(Performed 03/15/2021) * CT ABDOMEN PELVIS W CONTRAST(Performed 03/15/2021) Performed for Abdominal pain, epigastric * TROPONIN I(Performed 03/15/2021) * PT-INR SLH(Performed 03/15/2021) * LIPASE BLOOD(Performed 03/15/2021) * COMPREHENSIVE METABOLIC PANEL(Performed 03/15/2021) * CBC W AUTO DIFFERENTIAL(Performed 03/15/2021) * EKG 12-LEAD(Performed 03/15/2021) Performed for Abdominal pain, epigastric * CULTURE BLOOD(Performed 09/01/2014) * CARDIAC RHYTHM STRIP ORDER(Performed 11/15/2013) * LAB RESULTS ORDER(Performed 11/15/2013) * GLUCOSE - POINT OF CARE(Performed 11/14/2013) * GLUCOSE - POINT OF CARE(Performed 11/14/2013) * HEMOGLOBIN A1C(Performed 11/14/2013) * GLUCOSE - POINT OF CARE(Performed 11/13/2013) * CBC W AUTO DIFFERENTIAL(Performed 11/13/2013) * BASIC METABOLIC PANEL (CALCIUM TOTAL)(Performed 11/13/2013) * XR CHEST 1VW PORTABLE(Performed 11/13/2013) Performed for Acute respiratory failure (HCC) * GLUCOSE - POINT OF CARE(Performed 11/13/2013) * GLUCOSE - POINT OF CARE(Performed 11/12/2013) * BLOOD GASES ARTERIAL POCT(Performed 11/12/2013) * BLOOD GASES ART (ISTAT)(Performed 11/12/2013) * GLUCOSE - POINT OF CARE(Performed 11/12/2013) * XR CHEST 1VW PORTABLE(Performed 11/12/2013) Performed for Acute respiratory failure (HCC) * GLUCOSE - POINT OF CARE(Performed 11/12/2013) * COMPREHENSIVE METABOLIC PANEL(Performed 11/12/2013) * CBC W AUTO DIFFERENTIAL(Performed 11/12/2013) * DIFFERENTIAL MANUAL(Performed 11/12/2013) * GLUCOSE - POINT OF CARE(Performed 11/12/2013) * GLUCOSE - POINT OF CARE(Performed 11/11/2013) * GLUCOSE - POINT OF CARE(Performed 11/11/2013) * XR CHEST 1VW PORTABLE(Performed 11/11/2013) Performed for Respiratory distress, COPD (chronic obstructive pulmonary disease) (HCC), Atelectasis * GLUCOSE - POINT OF CARE(Performed 11/11/2013) * CBC W AUTO DIFFERENTIAL(Performed 11/11/2013) * COMPREHENSIVE METABOLIC PANEL(Performed 11/11/2013) * BLOOD GASES ARTERIAL POCT(Performed 11/11/2013) * BLOOD GASES ART (ISTAT)(Performed 11/11/2013) * BLOOD GASES ARTERIAL POCT(Performed 11/10/2013) * GLUCOSE - POINT OF CARE(Performed 11/10/2013) * VANCOMYCIN LEVEL TROUGH(Performed 11/10/2013) * GLUCOSE - POINT OF CARE(Performed 11/10/2013) * XR CHEST 1VW PORTABLE(Performed 11/10/2013) Performed for Hypoxia, COPD (chronic obstructive pulmonary disease) (HCC), Atelectasis * GLUCOSE - POINT OF CARE(Performed 11/10/2013) * MAGNESIUM BLOOD(Performed 11/10/2013) * BASIC METABOLIC PANEL (CALCIUM TOTAL)(Performed 11/10/2013) * CBC W AUTO DIFFERENTIAL(Performed 11/10/2013) * GLUCOSE - POINT OF CARE(Performed 11/09/2013) * GLUCOSE - POINT OF CARE(Performed 11/09/2013) * GLUCOSE - POINT OF CARE(Performed 11/09/2013) * XR CHEST 1VW PORTABLE(Performed 11/09/2013) Performed for SOB (shortness of breath), Respiratory distress * GLUCOSE - POINT OF CARE(Performed 11/09/2013) * BASIC METABOLIC PANEL (CALCIUM TOTAL)(Performed 11/09/2013) Performed for SOB (shortness of breath), Respiratory distress * CBC W AUTO DIFFERENTIAL(Performed 11/09/2013) Performed for SOB (shortness of breath), Respiratory distress * GLUCOSE - POINT OF CARE(Performed 11/08/2013) * CT CHEST WO CONTRAST(Performed 11/08/2013) Performed for SOB (shortness of breath) * GLUCOSE - POINT OF CARE(Performed 11/08/2013) * XR CHEST 1VW(Performed 11/08/2013) Performed for SOB (shortness of breath) * CULTURE SPUTUM+GRAM STAIN(Performed 11/08/2013) * BRONCHOSCOPY FLEXIBLE(Performed 11/08/2013) * BLOOD GASES ARTERIAL POCT(Performed 11/08/2013) * CULTURE MRSA(Performed 11/08/2013) * CULTURE VRE(Performed 11/08/2013) * BLOOD GASES ARTERIAL POCT(Performed 11/08/2013) * XR CHEST 1VW PORTABLE(Performed 11/08/2013) Performed for SOB (shortness of breath) * BLOOD GASES ART (ISTAT)(Performed 11/08/2013) * EKG 12-LEAD(Performed 11/08/2013) Performed for SOB (shortness of breath) * XR CHEST 1VW PORTABLE(Performed 11/08/2013) Performed for COPD (chronic obstructive pulmonary disease) (HCC), Chronic respiratory failure (HCC), Atelectasis * BLOOD GASES ART (ISTAT)(Performed 11/08/2013) * BLOOD GASES ART (ISTAT)(Performed 11/08/2013) * CBC W AUTO DIFFERENTIAL(Performed 11/08/2013) * BASIC METABOLIC PANEL (CALCIUM TOTAL)(Performed 11/08/2013) * GLUCOSE - POINT OF CARE(Performed 11/07/2013) * BLOOD GAS ART+LYTES+H&H POCT NOTIFICATION(Performed 11/07/2013) * GLUCOSE - POINT OF CARE(Performed 11/07/2013) * XR CHEST 1VW(Performed 11/07/2013) Performed for SOB (shortness of breath), Respiratory distress, COPD (chronic obstructive pulmonary disease) ([facility]), Chronic respiratory failure (HCC) * BLOOD GASES ART + LYTES GLU CA+ HH (ISTAT)(Performed 11/07/2013) * GLUCOSE - POINT OF CARE(Performed 11/07/2013) * GLUCOSE - POINT OF CARE(Performed 11/06/2013) * GLUCOSE - POINT OF CARE(Performed 11/06/2013) * GLUCOSE - POINT OF CARE(Performed 11/06/2013) * GLUCOSE - POINT OF CARE(Performed 11/05/2013) * GLUCOSE - POINT OF CARE(Performed 11/05/2013) * GLUCOSE - POINT OF CARE(Performed 11/05/2013) * GLUCOSE - POINT OF CARE(Performed 11/05/2013) * GLUCOSE - POINT OF CARE(Performed 11/05/2013) * BASIC METABOLIC PANEL (CALCIUM TOTAL)(Performed 11/05/2013) * GLUCOSE - POINT OF CARE(Performed 11/04/2013) * GLUCOSE - POINT OF CARE(Performed 11/04/2013) * VAS BILATERAL VENOUS DUPLEX LE(Performed 11/04/2013) Performed for Chronic respiratory failure (HCC), RIKKI (obstructive sleep apnea) * GLUCOSE - POINT OF CARE(Performed 11/04/2013) * ECHOCARDIOGRAM 2D WITH DOPPLER(Performed 11/04/2013) Performed for SOB (shortness of breath), Chronic respiratory failure (HCC), RIKKI (obstructive sleep apnea) * PT EVAL AND TREAT(Performed 11/04/2013) * XR CHEST 1VW PORTABLE(Performed 11/04/2013) Performed for COPD (chronic obstructive pulmonary disease) ([facility]), Chronic respiratory failure (HCC), Atelectasis * GLUCOSE - POINT OF CARE(Performed 11/04/2013) * RENAL FUNCTION PANEL(Performed 11/04/2013) * VITAMIN B12(Performed 11/04/2013) * GLUCOSE - POINT OF CARE(Performed 11/03/2013) * GLUCOSE - POINT OF CARE(Performed 11/03/2013) * GLUCOSE - POINT OF CARE(Performed 11/03/2013) * XR CHEST 1VW PORTABLE(Performed 11/03/2013) Performed for COPD (chronic obstructive pulmonary disease) ([facility]) * GLUCOSE - POINT OF CARE(Performed 11/03/2013) * CBC W/O DIFFERENTIAL(Performed 11/03/2013) * BASIC METABOLIC PANEL (CALCIUM TOTAL)(Performed 11/03/2013) * BLOOD GASES ARTERIAL POCT(Performed 11/03/2013) * GLUCOSE - POINT OF CARE(Performed 11/02/2013) * GLUCOSE - POINT OF CARE(Performed 11/02/2013) * GLUCOSE - POINT OF CARE(Performed 11/02/2013) * XR CHEST 1VW PORTABLE(Performed 11/02/2013) Performed for SOB (shortness of breath), Respiratory distress, Hypoxia, COPD (chronic obstructive pulmonary disease) ([facility]) * GLUCOSE - POINT OF CARE(Performed 11/02/2013) * CULTURE VRE(Performed 11/02/2013) * CULTURE MRSA(Performed 11/02/2013) * CBC W/O DIFFERENTIAL(Performed 11/02/2013) * BASIC METABOLIC PANEL (CALCIUM TOTAL)(Performed 11/02/2013) * BLOOD GASES ART (ISTAT)(Performed 11/02/2013) * MAGNESIUM BLOOD(Performed 11/02/2013) * BLOOD GASES ARTERIAL POCT(Performed 11/02/2013) * GLUCOSE - POINT OF CARE(Performed 11/01/2013) * BASIC METABOLIC PANEL (CALCIUM TOTAL)(Performed 11/01/2013) * PHOSPHORUS BLOOD(Performed 11/01/2013) * MAGNESIUM BLOOD(Performed 11/01/2013) * TROPONIN I(Performed 11/01/2013) * GLUCOSE - POINT OF CARE(Performed 11/01/2013) * BLOOD GASES ART (ISTAT)(Performed 11/01/2013) * BLOOD GASES ART (ISTAT)(Performed 11/01/2013) * XR CHEST 1VW PORTABLE(Performed 11/01/2013) Performed for SOB (shortness of breath) * BLOOD GASES ARTERIAL POCT(Performed 11/01/2013) * B-TYPE NATRIURETIC PEPTIDE(Performed 11/01/2013) * TROPONIN I(Performed 11/01/2013) * COMPREHENSIVE METABOLIC PANEL(Performed 11/01/2013) * CBC W AUTO DIFFERENTIAL(Performed 11/01/2013) * BLOOD GASES ART (ISTAT)(Performed 11/01/2013) * EKG 12-LEAD(Performed 11/01/2013) Performed for SOB (shortness of breath) * LAB MICROBIOLOGY - HPF HISTORICAL(Performed 12/13/2010) Results * DC INTMD WND REPAIR FACE,FACIAL 2.5-5, DC CHMSRG MOHS MG TQ H/N/H/F/G 1ST STAG 5 BLOC (12/01/2022 1:29 PM BOAT HAND) Narrative Shila St MD - 12/01/2022 1:29 PM BOAT HAND Shila St MD ? 12/03/2022 10:38 PM Mohs Micrographic Surgery Operative Note Procedure: Mohs micrographic surgery Date of service: 12/01/2022 Location: left cheek Preop diagnosis: Basal cell carcinoma Postop diagnosis: Basal cell carcinoma Mohs AUC score: 8 Number of stages: 1 Preop size: 2.0x1.0 cm Postop size: 3.0x2.3 cm Depth of final defect: adipose Previous dermpath accession #: [id number] Repair type: intermediate Mohs accession #: [id number] [...] confirmed by the patient. All components of Cunningham Protocol/PAUSE Rule completed. STAGE I: The patient [...] obscuring possible tumor presence: Not Present [facility] CLIA # [id number] Mohs color laboratory technician: Shila St MD REPAIR: Intermediate Primary Surgeon: Shila St MD Health Promotion Officer: N/A Repair Size: 4.2 cm Sutures: 4-0 [...] report. I entered the information in our Epic DocFlowsheet with the information provided by Dr. St on her handwritten, paper format, surgical worksheet, which was then used to initiate the create of this note. Dr. St then reviewed and edited the note as needed to complete the note. Emily Apple MANAGER GIFT I have reviewed the note, edited it as necessary and performed the entire procedure. Shila St MD Technology Services Manager 12/01/[address] MD PROCEDURE/MINOR SURG ICAL ORDERABLES * DC TANGNTL BX SKIN SINGLE LES (10/03/2022 1:00 PM BOAT HAND) Narrative Francisco Rodriguez MD - 10/03/2022 1:00 PM BOAT HAND Zainab Espino MD ? 10/03/2022 ??1:00 PM Risks, benefits and alternatives to shave biopsy were discussed with the patient. Verbal consent obtained. Location: left cheek Ddx: Rule out NMSC Skin prep: Alcohol Anesthesia: 1% lidocaine with epinephrine Hemostasis: Aluminum Chloride Dressing and wound care discussed. Patient agrees to phone call for results and message if not available. Zainab Espino MD Dermatology Resident, PGY-4 [facility], Department of Dermatology Sindy Cardoso MD PROCEDURE/MINOR VICKERS RGICAL ORDERABLES * DERMATOPATHOLOGY (Specimen Count = 1) (10/03/2022 12:00 AM BOAT HAND) Case Report Dermatopathology Report ? Case: [id number] ? Authorizing Provider: ??Sindy Cardoso MD ?Collected: ? 10/03/2022 12:00 AM ? Ordering Location: ? [facility] ?Received: ?10/04/2022 06:56 AM ? Dermatology ? Pathologist: ? Cecilia Ewing MD ? Specimen: ?Skin, left cheek ? 2 1:58 PM [facility] DERMATOPATHOLOGY LABORATORY Final Diagnosis Specimen A. SKIN, left cheek: BASAL CELL CARCINOMA, NODULAR TYPE (C44.319) 2 1:58 PM [facility] DERMATOPATHOLOGY [facility]ORATORY Clinical History Rule Out NMSC 2 1:58 PM [facility] DERMATOPATHOLOGY LABORATORY Gross Description Specimen A: Received is one formalin filled container labeled with the patient's name and designated left cheek. The specimen consists of a shave biopsy measuring [id number]. Jar 0. 2 1:58 PM [facility] DERMATOPATHOLOGY LABORATORY Microscopic Description Specimen A. SKIN, left cheek: Within the dermis there are aggregates of basaloid cells with a high nuclear to cytoplasmic ratio and peripheral palisading. 2 1:58 PM [facility] DERMATOPATHOLOGY LABORATORY Disclaimer An external and internal positive and negative controls are appropriate for the histochemical, immunohistochemical and immunofluorescence stain(s) in this case (if any), except where stated explicitly. The performance characteristics of the stain(s) cited in this report were developed and its performance characteristic determined by the Dermatopathology Laboratory at [facility], directed by Dr. Vincent Ewing. These tests need not be, and therefore are not, approved by the [place] Food and Drug Administration. The tests are used for clinical purposes. Billing Codes Specimen Charges Stain Charges 63252 1 2 1:58 PM [facility] DERMATOPATHOLOGY LABORATORY Embedded Images 2 1:58 PM [facility] DERMATOPATHOLOGY LABORATORY Pathology/Cytolog y TISSUE SPECIMEN FROM SKIN / Unknown 10/03/2022 10/04/2022 6:56 AM BOAT HAND Sindy Cardoso MD LAB - PATHOLOGY/CY TOLOGY ORDERABLES DERMATOPATHOLOGY LABORATORY [facility] - Department of Dermatology [facility] Medicine [address] [place] [address], [address] [phone] * SURESWAB HSV 1+2 DNA PCR (06/22/2022 8:00 PM CDT) Herpes Simplex Virus 1 DNA TNP [facility] Comment: TEST NOT PERFORMED No suitable specimen received. Please review the test requirements at [email or web address] NO COLLECTION DATE RECEIVED. WE HAVE USED THE DATE THE SPECIMEN WAS RECEIVED BY THIS LABORATORY THE COLLECTION DATE. IF THIS IS INCORRECT, PLEASE CONTACT CLIENT SERVICES. PHONE NUMBER: [phone] Test Performed at: [employer] [address] [place], [place] ??[address] PRABHAKAR HOLLIS MD,PHD,LETHA Microbiology ENTIRE PENIS / Unknown 06/14/2022 5:29 AM CDT Sindy Cardoso MD LAB - MICROBIOLOGY ORDERABLES Performing Organization Address [facility] de Phone Number [facility] [phone] [place] [address] * VARICELLA ZOSTER PCR (06/22/2022 8:00 PM CDT) Source SWAB [facility] Comment:Received swab from u nspecified source. Varicella zoster Virus DNA Qual Real Time PCR NOT DETECTED [facility] Comment: REFERENCE RANGE: NOT DETECTED This test was developed and its analytical performance characteristics have been determined by [employer]. It has not been cleared or approved by FDA. This assay has been validated pursuant to the CLIA regulations and is used for clinical purposes. Test Performed at: [employer] [address] [place], [place] ??[phone] PRABHAKAR HOLLIS MD,PHD,LETHA Microbiology TISSUE SPECIMEN FROM SKIN / Unknown 06/14/2022 5:29 AM CDT Sindy Cardoso MD LAB - MICROBIOLOGY ORDERABLES Performing Organization Address [facility] de Phone Number [facility] [phone] [place] [address] * CARDIAC EKG ORDER (03/16/2021 9:46 AM CDT) Narrative 03/16/2021 9:46 AM CDT Ordered by an unspecified provider. Scanned Document CARDIAC SERVICES ORD ERABLES * (ABNORMAL) URINALYSIS REFLEX TO MICROSCOPIC NO CULTURE (03/15/2021 9:55 AM CDT) Color UA Cindy(A) Straw, Yellow 03/15/2021 10:35 AM CDT [facility] Clarity UA Clear Clear 03/15/2021 10:35 AM CDT [facility] Specific [place] UA 1.024 1.005 - 1.030 03/15/2021 10:35 AM CDT [facility] pH UA 6.0 5.0 - 8.0 pH 03/15/2021 10:35 AM CDT [facility] Protein UA Negative Negative 03/15/2021 10:35 AM CDT [facility] Glucose UA Negative Negative 03/15/2021 10:35 AM CDT [facility] Ketone UA Negative Negative 03/15/2021 10:35 AM [facility] Bilirubin UA Negative Negative 03/15/2021 10:35 AM [facility] Blood UA Negative Negative 03/15/2021 10:35 AM [facility] Nitrite UA Negative Negative 03/15/2021 10:35 AM [facility] Leukocyte Esterase Negative Negative 03/15/2021 10:35 AM [facility] Urobilinogen UA 2.0(A) Negative mg/dL 03/15/2021 10:35 AM [facility] RBC UA 11-20(A) None Seen, 0-2, 3-5 /HPF 03/15/2021 10:35 AM [facility] WBC UA 11-20(A) None Seen, 0-5 /HPF 03/15/2021 10:35 AM [facility] Bacteria UA Trace(A) None /HPF 03/15/2021 10:35 AM [facility] Yeast Budding UA Many(A) None /HPF 03/15/20 21 10:35 AM [facility] Squamous Epithelial Cells UA 0-2 None Seen, 0-2, 3-5 /HPF 03/15/2021 10:35 AM [facility] Mucus UA 1+ /LPF 03/15/2021 10:35 AM [facility] Urine URINE SPECIMEN OBTAINED BY CLEAN CATCH PROCEDURE / Unknown Collection / Unknown 03/15/2021 9:55 AM CDT 03/15/2021 10:04 AM CDT Narrative [facility] - 03/15/2021 10:35 AM CDT Tenzin Chawla MD LAB - URINALYSI S ORDERABLES [address] [address], [facility] [phone] * TROPONIN I (03/15/2021 7:44 AM CDT) Only the most recent of5 resultswithin the time period is included. Troponin I 0.011 <0.032 ng/mL 03/15/2021 9:04 AM CDT [facility] Blood BLOOD SPECIMEN / Unknown Venipuncture / Unknown 03/15/2021 7:44 AM CDT 03/15/2021 8:15 AM CDT Tenzin Chawla MD LAB - CHEMISTRY ORDERABLES [facility] [address] [place] [address], [facility] [phone] * CT ABDOMEN AND PELVIS WITH IV CONTRAST - Acute Abdomen (03/15/2021 3:44 AM CDT) Anatomical Region Laterality Modality Abdomen, Pelvis Computed Tomogra phy 03/15/2021 6:59 AM CDT Impressions 03/15/2021 10:01 AM CDT Impression: 1.Markedly distended urinary bladder with no associated hydronephrosis or hydroureter. This may be secondary to urinary retention. 2.Moderate colonic gas and stool burden. This may be due to constipation. 3.Right lung base pleural calcifications and scarring. Correlate with prior history, findings may relate to prior exposure including asbestos. 4.Left midlung atelectasis. Report drafted by Chata Jc (resident) I, Dr. CRIS JOE have personally reviewed and interpreted this examination/study. This report was electronically signed by CRIS JOE ??on 03/15/2021 10:01 AM . Narrative 03/15/2021 10:01 AM CDT Procedure Information DATE: 03/15/2021 3:45 AM EXAMINATION: Computed tomography (CT) of the abdomen and pelvis with contrast TECHNIQUE: CT of the abdomen and pelvis was performed following the uneventful administration of 100 mL of Isovue 370 intravenous contrast according to standard protocol. Clinical Information HISTORY: R10.13: Abdominal pain, epigastric COMPARISON: None. Findings Lines and tubes: Partial visualization of cardiac leads terminating in the right atrium and right ventricle. PEG tube terminates in stomach. Lower Chest: There are pleural calcifications and scarring in the right lung base. Mild left mid lung atelectasis. Hepatobiliary: The liver and gallbladder are normal. Pancreas: Normal. Spleen: Punctate granulomas. Kidneys: Multiple nonobstructing right renal calculi. No left renal calculi. No hydronephrosis bilaterally. Adrenals: Normal. Retroperitoneum/peritoneum: Normal. No enlarged lymphadenopathy. Gastrointestinal: The stomach is unremarkable. There is moderate colonic gas and stool burden. Focal narrowing of the sigmoid colon (series 3, image 109) likely reflects peristalsis. Pelvic Structures: The urinary bladder is markedly distended. Vasculature: Scattered atherosclerotic vasculature changes. Bones: Lumbarized S1. There is age-indeterminate compression deformities of L2 and L5. Multilevel degenerative changes of the thoracolumbar spine. A few old right rib fractures. Soft tissues: Normal. Procedure Note Cris Joe MD - 03/15/2021 Procedure Information DATE: 03/15/2021 3:45 AM EXAMINATION: Computed tomography (CT) of the abdomen and pelvis with contrast TECHNIQUE: CT of the abdomen and pelvis was performed following the uneventful administration of 100 mL of Isovue 370 intravenous contrast according to standard protocol. Clinical Information HISTORY: R10.13: Abdominal pain, epigastric COMPARISON: None. Findings Lines and tubes: Partial visualization of cardiac leads terminating in the right atriumand right ventricle. PEG tube terminates in stomach. Lower Chest: There are pleural calcifications and scarring in the right lung base.Mild left mid lung atelectasis. Hepatobiliary: The liver and gallbladder are normal. Pancreas: Normal. Spleen: Punctate granulomas. Kidneys: Multiple nonobstructing right renal calculi. No left renal calculi. No hydronephrosis bilaterally. Adrenals: Normal. Retroperitoneum/peritoneum: Normal. No enlarged lymphadenopathy. Gastrointestinal: The stomach is unremarkable. There is moderate colonic gas and stool burden. Focal narrowing of the sigmoid colon (series 3, image 109)likely reflects peristalsis. Pelvic Structures: The urinary bladder is markedly distended. Vasculature: Scattered atherosclerotic vasculature changes. Bones: Lumbarized S1. There is age-indeterminate compression deformities of L2 and L5. Multilevel degenerative changes of the thoracolumbar spine. Afew old right rib fractures. Soft tissues: Normal. Impression: 1.Markedly distended urinary bladder with no associated hydronephrosisor hydroureter. This may be secondary to urinary retention. 2.Moderate colonic gas and stool burden. This may be due toconstipation. 3.Right lung base pleural calcifications and scarring. Correlate with prior history, findings may relate to prior exposure including asbestos. 4.Left midlung atelectasis. Report drafted by Chata Jc (resident) I, Dr. CRIS JOE have personally reviewed and interpreted this examination/study. This report was electronically signed by CRIS JOE on 110:01 AM . Tenzin Chawla MD CT ORDERABLES * PT-INR [facility] (03/15/2021 2:20 AM CDT) Pathologist [facility] PT 14.6 12.1 - 14.8 Seconds 03/15/2021 2:39 AM CDT [facility] INR 1.2 See Comment 03/15/2021 2:39 AM CDT [facility] Comment:The suggested therap eutic range for standard coumadin (warfarin) therapy is an INR of 2.0-3.0. For high-risk patients (Mechanical Mitral Valve Prosthesis, etc.), the suggested prophylactic therapeutic range is an INR of 2.5-3.5. Blood BLOOD SPECIMEN / Unknown Venipuncture / Unknown 03/15/2021 2:20 AM CDT 03/15/2021 2:31 AM CDT Tenzin Chawla MD LAB - COAGULATI ON ORDERABLES [facility] [address] [place] [address], [facility] [phone] * (ABNORMAL) CBC W AUTO DIFFERENTIAL (03/15/2021 2:20 AM CDT) Only the most recent of8 resultswithin the time period is included. Pathologist [facility] WBC 8.1 3.5 - 10.5 10? 3 /uL 03/15/2021 2:35 AM CDT [facility] RBC 3.35(L) 4.30 - 5.70 10? 6 /uL 03/15/2021 2:35 AM CDT [facility] Hemoglobin 9.7(L) 12.0 - 17.6 g/dL 03/15/2021 2:35 AM CDT [facility] Hematocrit 31.8(L) 35.2 - 51.7 % 03/15/2021 2:35 AM [facility] MCV 94.9 80.7 - 98.3 fL 03/15/2021 2:35 AM [facility] MCH 29.0 26.7 - 34.0 pg 03/15/2021 2:35 AM [facility] MCHC 30.5(L) 30.8 - 35.9 g/dL 03/15/2021 2:35 AM [facility] Platelet Count 239 150 - 400 10? 3 /uL 03/15/2021 2:35 AM [facility] RDW-SD 54.4(H) 36.0 - 50.0 fL 03/15/2021 2:35 AM [facility] RDW-CV 15.5(H) 11.2 - 14.8 % 03/15/2021 2:35 AM [facility] MPV 10.1 9.4 - 12.9 fL 03/15/2021 2:35 AM [facility] nRBC Absolute 0.00 0 10? 3 /uL 03/15/2021 2:35 AM [facility] nRBC Auto 0.0 0 /100 WBC 03/15/2021 2:35 AM [facility] Neutrophils % 57.4 35.0 - 70.0 % 03/15/2021 2:35 AM [facility] Lymphocytes % 23.2 20.0 - 43.0 % 03/15/2021 2:35 AM [facility] Monocytes % 11.7 5.0 - 13.0 % 03/15/2021 2:35 AM [facility] Eosinophils % 6.8(H) 0.0 - 6.0 % 03/15/2021 2:35 AM [facility] Basophil % 0.4 0.0 - 1.5 % 03/15/2021 2:35 AM [facility] Neutrophils Absolute 4.6 1.6 - 7.0 10? 3 /uL 03/15/2021 2:35 AM [facility] Lymphocyte Absolute 1.9 1.1 - 3.9 10? 3 /uL 03/15/2021 2:35 AM [facility] Monocytes Absolute 0.94 0.26 - 1.07 10? 3 /uL 03/15/2021 2:35 AM T [facility] Eosinophils Absolute 0.55(H) 0.00 - 0.08 10? 3 /uL 03/15/2021 2:35 AM [facility] Basophils Absolute 0.03 0.00 - 0.08 10? 3 /uL 03/15/2021 2:35 AM [facility] Immature Granulocytes % 0.5 0.0 - 1.0 % 03/15/2021 2:35 AM [facility] Immature Granulocytes Absolute 0.04 03/15/2021 2:35 AM [facility] Blood BLOOD SPECIMEN / Unknown Venipuncture / Unknown 03/15/2021 2:20 AM CDT 03/15/2021 2:28 AM CDT Tenzin Chawla MD LAB - HEMATOLOG Y ORDERABLES Performing Organization Address [facility] Co de Phone Number [address] [address], [facility] [phone] * (ABNORMAL) COMPREHENSIVE METABOLIC PANEL (03/15/2021 2:20 AM CDT) Only the most recent of4 resultswithin the time period is included. BUN 27(H) 7 - 26 mg/dL 03/15/2021 2:56 AM [facility] Creatinine 0.63(L) 0.71 - 1.16 mg/dL 03/15/2021 2:56 AM [facility] Sodium 140 136 - 145 mmol/L 03/15/2021 2:56 AM [facility] Potassium 4.1 3.5 - 4.5 mmol/L 03/15/2021 2:56 AM [facility] Chloride 103 98 - 107 mmol/L 03/15/2021 2:56 AM [facility] CO2 32(H) 22 - 29 mmol/L 03/15/2021 2:56 AM [facility] Glucose 95 70 - 115 mg/dL 03/15/2021 2:56 AM [facility] Calcium 9.1 8.4 - 10.2 mg/dL 03/15/2021 2:56 AM [facility] Protein Total 7.5 6.0 - 8.3 g/dL 03/15/2021 2:56 AM [facility] Albumin 3.2(L) 3.4 - 5.0 g/dL 03/15/2021 2:56 AM [facility] Bilirubin Total 0.5 0.2 - 1.2 mg/dL 03/15/2021 2:56 AM [facility] Alkaline Phosphatase 83 40 - 150 U/L 03/15/2021 2:56 AM [facility] ALT 24 5 - 55 U/L 03/15/2021 2:56 AM [facility] AST 21 5 - 34 U/L 03/15/2021 2:56 AM [facility] Anion Gap 9 8 - 18 03/15/2021 2:56 AM [facility] BUN/Creatinine Ratio 43(H) 7 - 23 03/15/2021 2:56 AM [facility] Osmolality Calculated 295 270 - 300 mOsm/kg 03/15/2021 2:56 AM [facility] Albumin/Globulin Ratio 0.7(L) 1.1 - 2.3 03/15/2021 2:56 AM [facility] eGFR by CKD-EPI >90 >=90 mL/min/1.7 3 m2 03/15/2021 2:56 AM [facility] Blood BLOOD SPECIMEN / Unknown Venipuncture / Unknown 03/15/2021 2:20 AM CDT 03/15/2021 2:28 AM [facility] Tenzin Chawla MD LAB - CHEMISTRY ORDERABLES [facility] [address] [place] [address], [facility] [phone] * LIPASE BLOOD (03/15/2021 2:20 AM T) Lipase 16 8 - 78 U/L 03/15/2021 2:56 AM [facility] Blood BLOOD SPECIMEN / Unknown Venipuncture / Unknown 03/15/2021 2:20 AM CDT 03/15/2021 2:28 AM CDT Tenzin Chawla MD LAB - CHEMISTRY ORDERABLES Performing Organization Address City/[facility]/ZIP Co de Phone Number [facility] [address] [place] [address], [facility] [phone] * EKG 12-LEAD (03/15/2021 12:30 AM CDT) Only the most recent of3 resultswithin the time period is included. Ventricular Rate 81 BPM [facility] MUSE Atrial Rate 81 BPM [facility] MUSE P-R Interval 206 ms [facility] MUSE QRS Duration ms 150 ms [facility] MUSE Q-T Interval ms 410 ms [facility] MUSE QTC Calculation (Bezet) 476 ms [facility] MUSE Calculated P [place] -85 degrees SL MUSE Calculated R [place] -66 degrees [facility] MUSE Calculated T [place] -81 degrees [facility] MUSE Interpretation EKG ATRIAL FLUTTER WITH 3:1 A-V CONDUCTION RIGHT BUNDLE BRANCH BLOCK LEFT ANTERIOR FASCICULAR BLOCK BIFASCICULAR BLOCK ABNORMAL ECG NO PREVIOUS ECGS AVAILABLE Confirmed by fellow Lindsey Whiteside ([id number]) on 03/15/2021 11:09:30 AM Confirmed by Jose Sanchez ([id number]) on 03/17/2021 9:42:37 AM [facility] MUSE 03/15/2021 12:3 0 AM CDT 03/17/2021 9:42 AM CDT Tenzin Chawla MD ECG ORDERABLES [facility] MUSE * CULTURE BLOOD (09/01/2014 3:30 PM [facility]) Culture Blood No Growth at 5 days [facility] Blood specimen (specimen) BLOOD SPECIMEN / Unknown 09/01/2014 3:30 PM [facility] 09/01/2014 9:59 PM [facility] Narrative [facility] - 09/06/2014 10:00 PM [facility] AndersonSpecimen#[id number] [id number] Loc/Rm/Bed: ED// Historical Provider LAB - MICROBIOLOG Y ORDERABLES [place] [id number] [place] [address], [facility] [phone] * CARDIAC RHYTHM STRIP ORDER (11/15/2013 9:39 PM [facility]) Narrative 11/15/2013 9:39 PM [facility] Ordered by an unspecified provider. Transcriptions Document, Scanned - 11/15/2013 9:39 PM CST Scanned Document CARDIAC SERVICES ORD ERABLES * LAB RESULTS ORDER (11/15/2013 9:39 PM [facility]) Narrative 11/15/2013 9:39 PM [facility] Ordered by an unspecified provider. Transcriptions Document, Scanned - 11/15/2013 9:39 PM CST Scanned Document LAB - THERAPEUTIC DR UG MONITORING ORDERABLES * (ABNORMAL) GLUCOSE - POINT OF CARE (11/14/2013 11:52 AM [facility]) Only the most recent of53 resultswithin the time period is included. Glucose WB/POC 137(H) 70 - 106 mg/dL 11/14/2013 11:54 AM [facility] Blood BLOOD SPECIMEN / Unknown 11/14/2013 11:52 AM [facility] 11/14/2013 11:54 AM [facility] Bk Lemus MD LAB - POINT OF CARE ORDERABLES [facility] [address] [place] [address] * (ABNORMAL) HEMOGLOBIN A1C (11/14/2013 3:59 AM [facility]) Hemoglobin A1c 9.2(H) 4.2 - 6.3 % 11/14/2013 4:35 AM [facility] Estimated Average Glucose 217 mg/dL 11/14/2013 4:35 AM [facility] Whole Blood BLOOD SPECIMEN WITH EDTA / Unknown 11/14/2013 3:59 AM [facility] 11/14/2013 4:04 AM [facility] Bk Lemus MD LAB - CHEMISTRY LAKISHA CRAIG Performing Organization Address City/[facility]/ZIP Co de Phone Number [facility] [address] [place] [address] * (ABNORMAL) BASIC METABOLIC PANEL (CALCIUM TOTAL) (11/13/2013 6:09 AM [facility]) Only the most recent of8 resultswithin the time period is included. [facility] Glucose 259(H) 74 - 106 mg/dL 11/13/2013 6:42 AM [facility] Sodium 141 136 - 145 mmol/L 11/13/2013 6:42 AM [facility] Potassium 4.2 3.5 - 5.1 mmol/L 11/13/2013 6:42 AM [facility] Chloride 99 98 - 107 mmol/L 11/13/2013 6:42 AM [facility] CO2 37(H) 22 - 31 mmol/L 11/13/2013 6:42 AM [facility] Calcium 8.8 8.5 - 10.1 mg/dL 11/13/2013 6:42 AM [facility] Anion Gap 5 5 - 15 mmol/L 11/13/2013 6:42 AM [facility] BUN 21 7 - 21 mg/dL 11/13/2013 6:42 AM [facility] Creatinine 0.25(L) 0.50 - 1.30 mg/dL 11/13/2013 6:42 AM [facility] eGFR by MDRD >60 >60 mL/min/1.7 3m2 11/13/2013 6:42 AM [facility] eGFR by MDRD >60 >60 mL/min/1.7 3m2 11/13/2013 6:42 AM [facility] Blood BLOOD SPECIMEN / Unknown 11/13/2013 6:09 AM [facility] 11/13/2013 6:21 AM [facility] Tor De Los Santos MD LAB - CHEMISTRY LAKISHA CRAIG Performing Organization Address City/[facility]/ZIP Co de Phone Number [facility] [address] [place] [address] * XR CHEST 1VW PORTABLE (11/13/2013 6:00 AM [facility]) Only the most recent of11 resultswithin the time period is included. Anatomical Region Laterality Modality Chest Radiographic Tracey ging 11/13/2013 10:1 4 AM [facility] Narrative 11/13/2013 10:50 AM [facility] CHEST AP PORTABLE 11/13/2013 INDICATION: Respiratory distress. The patient has been extubated. Single AP semierect view of the chest demonstrates cardiomegaly and pulmonary vascular congestion. There is calcified and thickened pleura along the right lower lateral chest wall. Except for the removal of the tubing placements, there has been no essential change from yesterday. Edited by Tuyet Carter on 11/13/2013 10:38 AM Procedure Note Franck Crump MD - 11/13/2013 CHEST AP PORTABLE 11/13/2013 INDICATION: Respiratory distress. The patient has been extubated. Single AP semierect view of the chest demonstrates cardiomegaly and pulmonary vascular congestion. There is calcified and thickened pleura along the right lower lateral chest wall. Except for the removal of the tubing placements, there has been no essential change from yesterday. Edited by Tuyet Carter on 11/13/2013 10:38 AM Tor De Los Santos MD DIAGNOSTIC IMAGING O RDERABLES * BLOOD GASES ARTERIAL POCT (11/12/2013 6:20 PM [facility]) Only the most recent of8 resultswithin the time period is included. Comment Notification Only - See Separate Report 11/12/2013 8:00 PM [facility] Blood BLOOD SPECIMEN / Unknown 11/12/2013 6:20 PM [facility] 11/12/2013 6:20 PM [facility] Tor De Los Santos MD LAB - BLOOD GASES OR DERABLES [facility] [address] [place] [address] * (ABNORMAL) BLOOD GASES ART (ISTAT) (11/12/2013 11:52 AM [facility]) Only the most recent of10 resultswithin the time period is included. pH Arterial POCT 7.39 7.35 - 7.45 pH 11/12/2013 11:57 AM [facility] pCO2 Arterial 67.4(H) 32 - 43 mmHg 11/12/2013 11:57 AM [facility] pO2 Arterial 104 72 - 104 mmHg 11/12/2013 11:57 AM [facility] HCO3 Arterial POCT 41.2(H) 22 - 26 mmol/L 11/12/2013 11:57 AM [facility] BE Arterial 13(H) -2 - 2 mmol/L 11/12/2013 11:57 AM [facility] TCO2 Arterial Calc POCT 43(H) 22 - 29 mmol/L 11/12/2013 11:57 AM [facility] O2 Saturation Arterial 98 90 - 100 % 11/12/2013 11:57 AM [facility] Mode PS 11/12/2013 11:57 AM [facility] PEEP 5 11/12/2013 11:57 AM [facility] Pressure Support 8 11/12/2013 11:57 AM [facility] Site L Radial 11/12/2013 11:57 AM [facility] Edy's Test POS/PASS 11/12/2013 11:57 AM [facility] Treatment Delivery Method VENT 11/12/2013 11:57 AM [facility] FI O2 40 % 11/12/2013 11:57 AM [facility] Sample iSTAT ARTERI 11/12/2013 11:57 AM [facility] PT iSTAT [id number] 11/12/2013 11:57 AM [facility] Device 11/12/2013 11:57 AM [facility] Technical Sales Support Specialist ID [id number] 11/12/2013 11:57 AM [facility] Blood ARTERIAL BLOOD SPECIMEN / Unknown 11/12/2013 11:52 AM [facility] 11/12/2013 11:57 AM [facility] Bk Lemus MD LAB - POINT OF CARE ORDERABLES [facility] [address] [place] [address] * (ABNORMAL) DIFFERENTIAL MANUAL (11/12/2013 4:23 AM [facility]) WBC Auto 10.6 x10^9/L 11/12/2013 6:46 AM [facility] Neutrophil % Manual 85(H) 44 - 73 % 11/12/2013 6:46 AM [facility] Lymphocytes % Manual 5(L) 20 - 43 % 11/12/2013 6:46 AM [facility] Monocytes % Manual 7 5 - 13 % 11/12/2013 6:46 AM [facility] Band % Manual 2 0 - 11 % 11/12/2013 6:46 AM [facility] [place] Manual 1(H) <=0 % 11/12/2013 6:46 AM [facility] Cells Counted 100 # cells 11/12/2013 6:46 AM [facility] RBC Morphology Normal 11/12/2013 6:46 AM [facility] WBC Morph Normal 11/12/2013 6:46 AM [facility] Blood BLOOD SPECIMEN / Unknown 11/12/2013 4:23 AM [facility] 11/12/2013 4:36 AM [facility] Tor De Los Santos MD LAB - HEMATOLOGY ORD ERABLES Performing Organization Address City/[facility] Co de Phone Number [facility] [address] [place] [address] * VANCOMYCIN LEVEL TROUGH (11/10/2013 3:29 PM [facility]) Pathologist [facility] Vancomycin Trough 9.2 5.0 - 15.0 ug/mL 11/10/2013 3:55 PM [facility] Blood BLOOD SPECIMEN / Unknown 11/10/2013 3:29 PM [facility] 11/10/2013 3:33 PM [facility] Bk Lemus MD LAB - CHEMISTRY ORDE RAFA Performing Organization Address [facility] de Phone Number [facility] [address] [place] [address] * MAGNESIUM BLOOD (11/10/2013 2:29 AM [facility]) Only the most recent of3 resultswithin the time period is included. Pathologist [facility] Magnesium 1.8 1.6 - 2.6 mg/dL 11/10/2013 3:15 AM [facility] Blood BLOOD SPECIMEN / Unknown 11/10/2013 2:29 AM [facility] 11/10/2013 2:50 AM [facility] Jenifer Bhardwaj MD LAB - CHEMISTRY LAKISHA Vásquez Organization Address City/State/ZIP Co de Phone Number [facility] [address] [place] [address] * CT CHEST NON CONTRAST (11/08/2013 4:45 PM [facility]) Anatomical Region Laterality Modality Chest Computed Tomogra phy 11/08/2013 5:15 PM [facility] Narrative 11/08/2013 5:18 PM [facility] Examination: ??Noncontrast CT chest. Indication for examination: ??Respiratory failure. Left lung atelectasis. Noncontrast CT examination of the chest is performed with 2 mm helical technique with sagittal and coronal reconstructions. ?? Comparison is made with a recent plain film. There is confirmation of the presence of left lung atelectasis with marked volume loss in the left hemithorax. Left mainstem bronchus is visualized and is patent although it is slightly reduced in size compared to the right. There is minimal air bronchogram formation left lower lobe. No air bronchogram formation is identified in the left upper lobe. There is no pneumothorax. I cannot identify a discrete central obstructing lung mass on the basis of this examination. There is patchy infiltrate and atelectasis right lower lung zone. There is no dense consolidation on the right. There is no pleural or pericardial effusion on either side. No mediastinal hemorrhage or mass is observed. There is coronary artery calcification. Conclusion: Atelectasis left lung. Left mainstem bronchus is patent although relatively small in caliber as compared to the right mainstem. Minimal air bronchogram formation left lower lung zone. No air bronchogram formation identified in the left upper lobe. No discrete central obstructing mass identified on the basis of this examination. Patchy infiltrate right lung centrally and inferiorly with right pleural calcification. No mediastinal hemorrhage or mass. No pleural or pericardial effusion. Procedure Note Hugo Clark MD - 11/08/2013 Examination: Noncontrast CT chest. Indication for examination: Respiratory failure. Left lung atelectasis. Noncontrast CT examination of the chest is performed with 2 mm helical technique with sagittal and coronal reconstructions. Comparison is made with a recent plain film. There is confirmation of the presence of left lung atelectasis with marked volume loss in the left hemithorax. Left mainstem bronchus is visualized and is patent although it is slightly reduced in size compared to the right. There is minimal air bronchogram formation left lower lobe. No air bronchogram formation is identified in the left upper lobe. There is no pneumothorax. I cannot identify a discrete central obstructing lung mass on the basis of this examination. There is patchy infiltrate and atelectasis right lower lung zone. There is no dense consolidation on the right. There is no pleural or pericardial effusion on either side. No mediastinal hemorrhage or mass is observed. There is coronary artery calcification. Conclusion: Atelectasis left lung. Left mainstem bronchus is patent although relatively small in caliber as compared to the right mainstem. Minimal air bronchogram formation left lower lung zone. No air bronchogram formation identified in the left upper lobe. No discrete central obstructing mass identified on the basis of this examination. Patchy infiltrate right lung centrally and inferiorly with right pleural calcification. No mediastinal hemorrhage or mass. No pleural or pericardial effusion. Jenifer Bhardwaj MD CT ORDERABLES * XR CHEST PA OR AP (11/08/2013 3:15 PM [facility]) Only the most recent of2 resultswithin the time period is included. Anatomical Region Laterality Modality Chest Radiographic Tracey ging 11/08/2013 3:17 PM [facility] Narrative 11/08/2013 3:18 PM [facility] Examination: Chest single view portable. Indication for examination: Respiratory failure. Single AP view of the chest is compared with this afternoon's earlier examination. There is now complete atelectasis of the left lung. There is apparent occlusion left mainstem bronchus. There is slightly increased atelectasis right lower lung zone. There is no pneumothorax. Lines and tubes remain in place. Conclusion: Complete atelectasis left lung. Left upper lobe was at least partially aerated aerated this morning. Procedure Note Hugo Clark MD - 11/08/2013 Examination: Chest single view portable. Indication for examination: Respiratory failure. Single AP view of the chest is compared with this afternoon's earlier examination. There is now complete atelectasis of the left lung. There is apparent occlusion left mainstem bronchus. There is slightly increased atelectasis right lower lung zone. There is no pneumothorax. Lines and tubes remain in place. Conclusion: Complete atelectasis left lung. Left upper lobe was at least partially aerated aerated this morning. Morgan Marsh MD DIAGNOSTIC IMAGING O RDERABLES * (ABNORMAL) CULTURE SPUTUM+GRAM STAIN (11/08/2013 3:00 PM BOAT HAND) Culture Heavy growth Streptococcus pneumoniae(A) 11/10/2013 3:11 PM [facility] Culture Light growth normal oropharyngeal opal 11/10/2013 3:11 PM BOAT HAND [facility] Gram Stain Heavy Gram positive cocci 11/10/2013 3:11 PM [facility] Gram Stain >=100 per low power field White blood cells 11/10/2013 3:11 PM [facility] Gram Stain <10 per low power field Squamous epithelial cells 11/10/2013 3:11 PM [facility] Microbiology SPUTUM / Unknown 11/08/2013 3:00 PM [facility] 11/08/2013 3:13 PM [facility] Narrative [facility] - 11/10/2013 3:11 PM BOAT HAND For non meningitis isolates of S. pneumoniae, a penicillin LEFTY of <=0.06 ug/ml can predict susceptibility to the following beta-lactam antibiotics: ampicillin (oral or parenteral), ampicillin-sulbactam, amoxicillin, amoxicillin-clavulanic acid, cefaclor, cefdinir, cefditoren, cefepime, cefotaxime, cefpodoxime, cefprozil, ceftaroline, ceftizoxime, ceftriaxone, cefuroxime, doripenem, ertapenem, imipenem, meropenem, and penicillin (oral or parenteral). Organism Antibiotic Method Susceptibility Streptococcus pneumoniae Penicillin (par enteral, meningitis) LEFTY 0.5: Resistant Streptococcus pneumoniae Penicillin (par enteral, nonmeningitis) LEFTY 0.5: Susceptible Streptococcus pneumoniae Penicillin (ora l, nonmeningitis) LEFTY 0.5: Intermediate Streptococcus pneumoniae Cefotaxime-meningitis LEFTY 0.5: Susceptible Streptococcus pneumoniae Cefotaxime-nonmeningitis LEFTY 0.5: Susceptible Streptococcus pneumoniae Ceftriaxone-meningitis LEFTY 0.12: Susceptible Streptococcus pneumoniae Ceftriaxone-nonmeningitis LEFTY 0.12: Susceptible Streptococcus pneumoniae Erythromycin LEFTY >=1: Resistant Streptococcus pneumoniae Levofloxacin LEFTY 1: Susceptible Streptococcus pneumoniae Meropenem LEFTY <=0.06: Susceptible Streptococcus pneumoniae Trimethoprim-sulfamethoxazole LEFTY 160: Resistant Streptococcus pneumoniae Vancomycin LEFTY <=1: Susceptible Jenifer Bhardwaj MD LAB - MICROBIOLOGY O RDERABLES [facility] [address] [place], [place] [address], [facility] * BRONCHOSCOPY FLEXIBLE (11/08/2013 2:56 PM BOAT [facility]) Morgan Carbajal MD - 11/08/2013 2:56 PM BOAT HAND Morgan Marsh MD ? 11/08/2013 ??2:56 PM PROCEDURE : ? BRONCHOSCOPY Preoperative diagnosis : Atelectasis, left lung Postoperative diagnosis : ?? Mucus plugging, left mainstem bronchus Sedation : ??On propofol drip. ??Versus at 2 milligram and fentanyl 50 micrograms given for sedation. ??Dose of propofol could not be increased any further due to bradycardia Summary : ??Mucus plugging, left mainstem bronchus. ??Suctioned till clear. ??No endobronchial lesions Procedure note : The bronchoscope was passed through the orotracheal tube without any difficulty. ??Tip of the endotracheal tube is about 2cm above the yvonne. Trachea : ??Visualized portion of the trachea is normal. No endobronchial lesions . No secretions. . Yvonne: ??Normal with sharp contours. Right mainstem bronchus : ??Patent . ??Mucosa is normal . No endobronchial lesions . No secretions. Right upper lobe bronchus : ??Patent . ??Mucosa is normal . No endobronchial lesions . No secretions. Segments of the right upper lobe : ??Patent . ??Mucosa is normal . No endobronchial lesions. No secretions. Bronchus intermedius : Patent . ??Mucosa is normal . No endobronchial lesions . No secretions. Right middle lobe bronchus : Patent . ??Mucosa is normal . No endobronchial lesions . No secretions. Segments of the right middle lobe: Patent . ??Mucosa is normal . No endobronchial lesions. No secretions. Right lower lobe bronchus : Patent . ??Mucosa is normal . No endobronchial lesions . No secretions. Segments of the right lower lobe : Patent . ??Mucosa is normal . No endobronchial lesions. No secretions. Left mainstem bronchus : ??Mucus plugging obstructing the lumen. ?? Suctioned till clear. Mucosa is normal . No endobronchial lesions . Bronchus to the left upper lobe : Patent . ??Mucosa is normal . No endobronchial lesions . ?? Minimal secretions, suctioned Segments of the left upper lobe and lingula : Patent . ??Mucosa is normal . No endobronchial lesions . No secretions. Bronchus to the left lower lobe : Patent . ??Mucosa is normal . No endobronchial lesions . Minimal secretions, suctioned. Segments of the left lower lobe : Patent . ??Mucosa is normal . No endobronchial lesions . No secretions. Complications: None. The patient tolerated the procedure well. ?? Estimated blood loss : ??None Condition: ??Stable Specimens obtained : None Procedure Note Morgan Marsh MD - 11/08/2013 2:52 PM CST PROCEDURE : BRONCHOSCOPY Preoperative diagnosis : Atelectasis, left lung Postoperative diagnosis : Mucus plugging, left mainstem bronchus Sedation : On propofol drip. Versus at 2 milligram and fentanyl 50micrograms given for sedation. Dose of propofol could not be increasedany further due to bradycardia Summary : Mucus plugging, left mainstem bronchus. Suctioned till clear.No endobronchial lesions Procedure note : The bronchoscope was passed through the orotracheal tube without anydifficulty. Tip of the endotracheal tube is about 2cm above the yvonne. Trachea : Visualized portion of the trachea is normal. No endobronchiallesions . No secretions. . Yvonne: Normal with sharp contours. Right mainstem bronchus : Patent . Mucosa is normal . No endobronchiallesions . No secretions. Right upper lobe bronchus : Patent . Mucosa is normal . No endobronchiallesions . No secretions. Segments of the right upper lobe : Patent . Mucosa is normal . Noendobronchial lesions. No secretions. Bronchus intermedius : Patent . Mucosa is normal . No endobronchiallesions . No secretions. Right middle lobe bronchus : Patent . Mucosa is normal . No endobronchiallesions . No secretions. Segments of the right middle lobe: Patent . Mucosa is normal . Noendobronchial lesions. No secretions. Right lower lobe bronchus : Patent . Mucosa is normal . No endobronchiallesions . No secretions. Segments of the right lower lobe : Patent . Mucosa is normal . Noendobronchial lesions. No secretions. Left mainstem bronchus : Mucus plugging obstructing the lumen. Suctionedtill clear. Mucosa is normal . No endobronchial lesions . Bronchus to the left upper lobe : Patent . Mucosa is normal . Noendobronchial lesions . Minimal secretions, suctioned Segments of the left upper lobe and lingula : Patent . Mucosa is normal .No endobronchial lesions . No secretions. Bronchus to the left lower lobe : Patent . Mucosa is normal . Noendobronchial lesions . Minimal secretions, suctioned. Segments of the left lower lobe : Patent . Mucosa is normal . Noendobronchial lesions . No secretions. Complications: None. The patient tolerated the procedure well. Estimated blood loss : None Condition: Stable Specimens obtained : None Morgan Marsh MD PROCEDURE/MINOR SURG ICAL ORDERABLES * CULTURE VRE (11/08/2013 2:23 PM [facility]) Only the most recent of2 resultswithin the time period is included. Culture Negative for VRE 11/10/2013 9:50 AM BO[facility] Stool RECTAL SWAB / Unknown 11/08/2013 2:23 PM [facility] 11/08/2013 2:29 PM BOAT HAND Jenifer Bhardwaj MD LAB - MICROBIOLOGY O RDFARSHAD Performing Organization Address [facility] Co de Phone Number [facility] [address] Replaced By [facility] [place] [facility] [address] * CULTURE MRSA (11/08/2013 2:23 PM BOAT [facility]) Only the most recent of2 resultswithin the time period is included. Culture Negative for MRSA 11/10/2013 9:48 AM BOAT HAND [facility] Microbiology RECTAL SWAB / Unknown 11/08/2013 2:23 PM BO[facility] HAND 11/08/2013 2:29 PM BOAT HAND Jenifer Bhardwaj MD LAB - MICROBIOLOGY O RDFARSHAD Performing Organization Address City/[facility] Co de Phone Number [facility] [address] [place] [address], [facility] * BLOOD GAS ART+LYTES+H&H POCT NOTIFICATION (11/07/2013 3:24 PM BOAT [facility]) Comment Notification Only - See Separate Report 11/07/2013 5:00 PM [facility] Blood BLOOD SPECIMEN / Unknown 11/07/2013 3:24 PM [facility] 11/07/2013 3:24 PM BOAT HAND Darrel Manzano MD LAB - BLOOD GASES ORDERABLES [facility] [address] [place] [address] * (ABNORMAL) BLOOD GASES ART + LYTES GLU CA+ HH (ISTAT) (11/07/2013 10:21 AM [facility]) pH Arterial POCT 7.43 7.35 - 7.45 pH 11/07/2013 10:57 AM [facility] pCO2 Arterial 86.9(H) 32 - 43 mmHg 11/07/2013 10:57 AM [facility] pO2 Arterial 73 72 - 104 mmHg 11/07/2013 10:57 AM [facility] HCO3 Arterial POCT 57.2(H) 22 - 26 mmol/L 11/07/2013 10:57 AM [facility] BE Arterial 26(H) -2 - 2 mmol/L 11/07/2013 10:57 AM [facility] TCO2 Arterial Calc POCT >50(H) 22 - 29 mmol/L 11/07/2013 10:57 AM [facility] O2 Saturation Arterial 93 90 - 100 % 11/07/2013 10:57 AM [facility] Sodium Arterial 138 136 - 145 mmol/L 11/07/2013 10:57 AM [facility] Potassium Arterial 4.1 3.5 - 5.1 mmol/L 11/07/2013 10:57 AM [facility] Calcium Ionized Arterial POCT 1.20 1.12 - 1.32 mmol/L 11/07/2013 10:57 AM [facility] Glucose Arterial POCT 79 74 - 106 mg/dL 11/07/2013 10:57 AM [facility] Hemoglobin Arterial POCT 16.0 12.0 - 17.6 g/dL 11/07/2013 10:57 AM [facility] Hematocrit Arterial POCT 47.0 35.2 - 51.7 %PCV 11/07/2013 10:57 AM [facility] Site R Radial 11/07/2013 10:57 AM [facility] Edy's Test NA 11/07/2013 10:57 AM BOAT [facility] Treatment Delivery Method BiPAP 11/07/2013 10:57 AM BO[facility] FI O2 70 % 11/07/2013 10:57 AM BO[facility] Sample iSTAT ARTERI 11/07/2013 10:57 AM BO[facility] HAND [facility] EPAP 6 11/07/2013 10:57 AM BO[facility] IPAP 24 11/07/2013 10:57 AM [facility] PT iSTAT [id number] 11/07/2013 10:57 AM [facility] CPB iSTAT No 11/07/2013 10:57 AM BO[facility] Blood ARTERIAL BLOOD SPECIMEN / Unknown 11/07/2013 10:21 AM BOAT HAND 11/07/2013 10:56 AM BOAT HAND Bk Lemus MD LAB - POINT OF CARE ORDERABLES [facility] [address] [place] [address] * VAS VENOUS DUPLEX LE BILATERAL (11/04/2013 2:28 PM BOAT [facility]) Anatomical Region Laterality Modality Ultrasound 11/04/2013 1:49 PM BOAT HAND Narrative Procedure Note Armen Wilder MD - 11/04/[address] [address] Lower Extremity Venous Ultrasound Report Pat.Name: JP KNOX Pat.ID: [id number] St.Date: 11/04/2013 Exam Time: 1:49:00 PM Study Type:LE Venous Age: 2 1960,52Y Sex: MALE Sonogrphr: Vinnie Chappell RVT Pat. Stat.:Inpatient Room: 701 Reason for Study:Shortness of breath History / Clinical:Diabetes, Obesity, Congestive heart failure, COPD, CVA, Myocardial infarction, Asthma, High cholesterol Procedures:Lower Extremity Venous - Bilateral Visit ID: [id number] SUMMARY: There is no evidence of an acute deep or superficial venous thrombosis in either the right or left lower extremity. FINDINGS: Procedure: Venous duplex imaging of both lower extremities was performed using color flow and spectral Doppler analysis. Study Quality: Technically difficult exam due to body habitus. Rt Leg: Incidental finding of an anechoic, non-vascular soft tissue mass within the popliteal fossa of the right lower extremity and measures 4.4cm x 2.0 cm. Lt Leg: Incidental finding of an anechoic, non-vascular soft tissue mass within the popliteal fossa of the left lower extremity and measures 3.8cm x 1.5 cm. Bilateral: All vessels seen appear patent and compressible. There was spontaneous and phasic flow seen in all the major veins of both lower extremities. Appropriate augmentation with distal compression. Signed 11/04/2013 03:53 PM Armen Wilder MD Transcriptions Document, Scanned - 11/04/2013 3:54 PM CST Bk Lemus MD VASCULAR LAB ORDERAB LES * ECHOCARDIOGRAM 2D WITH DOPPLER (11/04/2013 11:48 AM BOAT HAND) 11/04/2013 11:4 8 AM BOAT HAND Narrative [facility] - 11/04/2013 3:07 PM BOAT HAND ECHOCARDIOGRAPHY REPORT [address] [id number] Transthoracic Echocardiogram 2D, M-mode, Doppler, and Color Doppler Date of Service: ??11/04/2013 Patient: JP KNOX : 1960 Age: 52 years Gender: Male Race: Height: 64 in Weight: 212 lb BSA: 2.01 m?? Diagnoses: 518.83 - CHRONIC RESPIRATORY FAIL Reading Physician: ??Michael Garsia MD Referring Physician: ??Allan Bourgeois MD ELECTRICAL & INSTRUMENTATION SUPERVISOR: ??Scottie Trotter [facility]iology Group: ??[facility] Summary: - ??History: - ??copd, asthma, chf, dm, cva - ??Procedure information: - ??[facility] room 701 @ 11:48 - ??Left ventricle: - ??Systolic function was normal. Ejection fraction was estimated in the range of 55 % to 65 %. - ??There were no regional wall motion abnormalities. - ??Doppler parameters were consistent with abnormal left ventricular relaxation (grade 1 diastolic dysfunction). - ??Mitral valve: - ??There was mild annular calcification. - ??Left atrium: - ??The atrium was mildly dilated. Indications: Evaluate shortness of breath. History: Prior history: copd, asthma, chf, dm, cva Procedure: The study was performed in the [facility]. This was a routine study. [facility] room 701 @ 11:48 The transthoracic approach was used. The study included complete 2D imaging, M-mode, complete spectral Doppler, and color Doppler. Echocardiographic views were limited by restricted patient mobility, poor patient compliance, and poor acoustic window availability. This was a technically difficult study. Left ventricle: Size was normal. Systolic function was normal. Ejection fraction was estimated in the range of 55 % to 65 %. There were no regional wall motion abnormalities. Wall thickness was normal. Doppler: Doppler parameters were consistent with abnormal left ventricular relaxation (grade 1 diastolic dysfunction). Aortic valve: The valve was trileaflet. Leaflets exhibited mildly increased thickness and normal cuspal separation. Doppler: Transaortic velocity was within the normal range. There was no stenosis. There was no regurgitation. Aorta: The root exhibited normal size. Mitral valve: There was mild annular calcification. Valve structure was normal. There was normal leaflet separation. Doppler: The transmitral velocity was within the normal range. There was no evidence for stenosis. There was no regurgitation. Left atrium: The atrium was mildly dilated. Right atrium: Size was normal. Right ventricle: The size was normal. Systolic function was normal. Wall thickness was normal. Tricuspid valve: The valve structure was normal. There was normal leaflet separation. Doppler: The transtricuspid velocity was within the normal range. There was no evidence for tricuspid stenosis. There was no regurgitation. Pulmonic valve: Leaflets exhibited normal thickness, no calcification, and normal cuspal separation. Doppler: The transpulmonic velocity was within the normal range. There was no regurgitation. Pulmonary artery: The size was normal. Doppler: Systolic pressure was within the normal range. Systemic veins: IVC: Not reported. SVC: Not reported. Innominate vein: Not reported. Hepatic veins: Not reported. Pericardium: There was no pericardial effusion. System measurement tables CW PV Vmax: 1.4 m/s AV VTI: 49 cm AV Vmax: 2.1 m/s AV maxP mmHg AV meanP.9 mmHg PV maxP.6 mmHg MM LA Diam: 4.2 cm AV Cusp: 1.6 cm Ao Diam: 3.5 cm IVSd: 1.9 cm LVIDd: 4.1 cm LVIDs: 2.8 cm LVPWd: 2.5 cm PW LVOT Vmax: 0.9 m/s MV A Elan: 0.7 m/s MV Dec Ritchie: 4.7 m/s2 MV E Elan: 1 m/s Prepared and signed by Michael Garsia MD Signed 11/04/2013 15:06:56 Procedure Note 11/04/2013 ECHOCARDIOGRAPHY REPORT [address] [address] Transthoracic Echocardiogram 2D, M-mode, Doppler, and Color Doppler Date of Service: 11/04/2013 Patient: JP KNOX : 1960 Age: 52 years Gender: Male Race: Height: 64 in Weight: 212 lb BSA: 2.01 m?? Diagnoses: 518.83 - CHRONIC RESPIRATORY FAIL Reading Physician: Michael Garsia MD Referring Physician: Allan Bourgeois MD ELECTRICAL [employer] INSTRUMENTATION SUPERVISOR: Scottie Trotter [facility]iology Group: [facility] Summary: - History: - copd, asthma, chf, dm, cva - Procedure information: - [facility] room 701 @ 11:48 - Left ventricle: - Systolic function was normal. Ejection fraction was estimated in the range of 55 % to 65 %. - There were no regional wall motion abnormalities. - Doppler parameters were consistent with abnormal left ventricular relaxation (grade 1 diastolic dysfunction). - Mitral valve: - There was mild annular calcification. - Left atrium: - The atrium was mildly dilated. Indications: Evaluate shortness of breath. History: Prior history: copd, asthma, chf, dm, cva Procedure: The study was performed in the [facility]. This was a routine study. [facility] room 701 @ 11:48 The transthoracic approach was used. The study included complete 2D imaging, M-mode, complete spectral Doppler, and color Doppler. Echocardiographic views were limited by restricted patient mobility, poor patient compliance, and poor acoustic window availability. This was a technically difficult study. Left ventricle: Size was normal. Systolic function was normal. Ejection fraction was estimated in the range of 55 % to 65 %. There were no regional wall motion abnormalities. Wall thickness was normal. Doppler: Doppler parameters were consistent with abnormal left ventricular relaxation (grade 1 diastolic dysfunction). Aortic valve: The valve was trileaflet. Leaflets exhibited mildly increased thickness and normal cuspal separation. Doppler: Transaortic velocity was within the normal range. There was no stenosis. There was no regurgitation. Aorta: The root exhibited normal size. Mitral valve: There was mild annular calcification. Valve structure was normal. There was normal leaflet separation. Doppler: The transmitral velocity was within the normal range. There was no evidence for stenosis. There was no regurgitation. Left atrium: The atrium was mildly dilated. Right atrium: Size was normal. Right ventricle: The size was normal. Systolic function was normal. Wall thickness was normal. Tricuspid valve: The valve structure was normal. There was normal leaflet separation. Doppler: The transtricuspid velocity was within the normal range. There was no evidence for tricuspid stenosis. There was no regurgitation. Pulmonic valve: Leaflets exhibited normal thickness, no calcification, and normal cuspal separation. Doppler: The transpulmonic velocity was within the normal range. There was no regurgitation. Pulmonary artery: The size was normal. Doppler: Systolic pressure was within the normal range. Systemic veins: IVC: Not reported. SVC: Not reported. Innominate vein: Not reported. Hepatic veins: Not reported. Pericardium: There was no pericardial effusion. System measurement tables CW PV Vmax: 1.4 m/s AV VTI: 49 cm AV Vmax: 2.1 m/s AV maxP mmHg AV meanP.9 mmHg PV maxP.6 mmHg MM LA Diam: 4.2 cm AV Cusp: 1.6 cm Ao Diam: 3.5 cm IVSd: 1.9 cm LVIDd: 4.1 cm LVIDs: 2.8 cm LVPWd: 2.5 cm PW LVOT Vmax: 0.9 m/s MV A Elan: 0.7 m/s MV Dec Ritchie: 4.7 m/s2 MV E Elan: 1 m/s Prepared and signed by Michael Garsia MD Signed 11/04/2013 15:06:56 Bk Lemus MD ECHO ORDERABLES [facility] * (ABNORMAL) RENAL FUNCTION PANEL (11/04/2013 6:01 AM [facility]) Glucose 242(H) 74 - 106 mg/dL 11/04/2013 7:02 AM [facility] Sodium 139 136 - 145 mmol/L 11/04/2013 7:02 AM [facility] Potassium 4.9 3.5 - 5.1 mmol/L 11/04/2013 7:02 AM [facility] Chloride 89(L) 98 - 107 mmol/L 11/04/2013 7:02 AM [facility] CO2 >45(HH) 22 - 31 mmol/L 11/04/2013 7:02 AM [facility] Calcium 8.7 8.5 - 10.1 mg/dL 11/04/2013 7:02 AM [facility] Anion Gap 5 - 15 mmol/L 11/04/2013 7:02 AM [facility] BUN 23(H) 7 - 21 mg/dL 11/04/2013 7:02 AM [facility] Creatinine 0.49(L) 0.50 - 1.30 mg/dL 11/04/2013 7:02 AM [facility] Albumin 2.9(L) 3.4 - 5.0 gm/dL 11/04/2013 7:02 AM [facility] Phosphorus 4.0 2.5 - 4.9 mg/dL 11/04/2013 7:02 AM [facility] eGFR by MDRD >60 >60 mL/min/1.7 3m2 11/04/2013 7:02 AM [facility] eGFR by MDRD >60 >60 mL/min/1.7 3m2 11/04/2013 7:02 AM [facility] Blood BLOOD SPECIMEN / Unknown 11/04/2013 6:01 AM BO[facility] 11/04/2013 6:31 AM BOAT HAND Bk Lemus MD LAB - CHEMISTRY LAKISHA CRAIG [facility] [address] [place] [address] * VITAMIN B12 (11/04/2013 6:01 AM BOAT HAND) Pathologist [facility] Vitamin B12 438 211 - 911 pg/mL 11/04/2013 12:03 PM BOAT HAND [facility] Blood BLOOD SPECIMEN / Unknown 11/04/2013 6:01 AM BOAT HAND 11/04/2013 6:31 AM BOAT HAND Bk Lemus MD LAB - CHEMISTRY LAKISHA CRAIG Performing Organization Address City/[facility]/ZIP Co de Phone Number [facility] [address] [place] [address] * (ABNORMAL) CBC W/O DIFFERENTIAL (11/03/2013 4:52 AM BOAT HAND) Only the most recent of2 resultswithin the time period is included. WBC 11.8(H) 4.4 - 10.7 x10^9/L 11/03/2013 5:06 AM [facility] RBC 4.58 3.80 - 5.40 x10^12/L 11/03/2013 5:06 AM [facility] Hemoglobin 13.7 12.0 - 17.6 gm/dL 11/03/2013 5:06 AM [facility] Hematocrit 47.5 35.2 - 51.7 % 11/03/2013 5:06 AM [facility] MCV 103.7(H) 80.7 - 98.3 fl 11/03/2013 5:06 AM [facility] MCH 29.9 26.7 - 34.0 pg 11/03/2013 5:06 AM BOAT [facility] MCHC 28.8(L) 30.8 - 35.9 gm/dL 11/03/2013 5:06 AM BO[facility] Platelet Count 178 153 - 416 x10^9/L 11/03/2013 5:06 AM [facility] RDW-CV 15.8(H) 12.1 - 14.9 % 11/03/2013 5:06 AM [facility] MPV 10.2 9.4 - 12.9 fl 11/03/2013 5:06 AM BO[facility] Blood BLOOD SPECIMEN / Unknown 11/03/2013 4:52 AM [facility] 11/03/2013 5:00 AM [facility] Jose Messer PA-C LAB - HEMATOLOGY ORD FARSHAD Performing Organization Address [facility] Co de Phone Number [facility] [address] [place] [address] * (ABNORMAL) PHOSPHORUS BLOOD (11/01/2013 9:35 PM BOAT HAND) Phosphorus 5.6(H) 2.5 - 4.9 mg/dL 11/01/2013 10:00 PM BOAT HAND [facility] Blood BLOOD SPECIMEN / Unknown 11/01/2013 9:35 PM BOAT HAND 11/01/2013 9:38 PM BOAT HAND Jose Messer PA-C LAB - CHEMISTRY LAKISHA CRAIG Performing Organization Address [facility] Co de Phone Number [facility] [address] [place] [address] * (ABNORMAL) B-TYPE NATRIURETIC PEPTIDE (11/01/2013 2:59 PM BOAT HAND) BNP 199(H) 0 - 100 pg/mL 11/01/2013 3:44 PM BOAT HAND [facility] Blood BLOOD SPECIMEN WITH EDTA / Unknown 11/01/2013 2:59 PM BOAT HAND 11/01/2013 3:06 PM BOAT HAND Sushil Wilson MD LAB - CHEMISTRY LAKISHA CRAIG Performing Organization Address [facility] Co de Phone Number [facility] [address] [place] [address] * LAB MICROBIOLOGY - HPF HISTORICAL (12/13/2010 5:28 AM BOAT HAND) 12/13/2010 5:28 AM BOAT HAND Narrative [facility] - 12/13/2010 5:28 AM BOAT HAND Mehrdad Naik MD LAB - MICROBIOLOGY O RDERABLES [facility] Care Teams Shaving Machine Operator Relationship Specialty Start Date End Date [facility] [address] [place] [address] PCP - General 06/17/18
--- OUTSIDE RECORDS SUMMARY | 2024-10-26 21:08 | XMS_ITS | Encounter Summary ---
Author Organization [facility] Address [address] [place] [address] Care Team Providers Care Computer Science Teacher Name Role Phone [facility] ([facility]) Primary Care Provi lesli Reason for Visit * Reason Comments Suture Removal 7 Day stitches remov ed. Encounter Details Date Type Department Care Team (Latest Contact Info) Description 12/07/2022 10:30 AM BENCH JEWELER Clinical Support [facility] [address] [place] [phone] Personal history of skin cancer Social History Tobacco Use Types Packs/Day Years Used Date Smoking Tobacco: Every Day Cigarettes Smokeless Tobacco: Never Alcohol Use Standard Drinks/Week Comments No 0 (1 standard drink = 0.6 oz pur e alcohol) Sex and Gender Information Value Date Recorded Sex Assigned at Not on file Gender Identity Not on file Sexual Orientation Not on file documented as of this encounter Progress Notes * Bea Hurtado - 12/07/2022 11:02 AM CST Procedure: Mohs micrographic surgery Date of service: 12/01/2022 Location: left cheek Preop diagnosis: Basal cell carcinoma Postop diagnosis: Basal cell carcinoma Mohs AUC score: 8 Number of stages: 1 Preop size: 2.0x1.0 cm Postop size: 3.0x2.3 cm Depth of final defect: adipose Previous dermpath accession #: [id number] Repair type: intermediate Mohs accession #: [id number] Day stitches removal. Photo was taken and everything looks good. Dr. St seen patient and said everything looks great. No need to do any more wound care. No need to follow up. Bea Hurtado MA H JEWELER Associated attestation - Shila St MD - 12/10/2022 1:39 PM BENCH JEWELER Nursing note and chart reviewed, and I agree with the findings and plan of care as documented by the MA. Date of Service: 12/07/[address] MD documented in this encounter Plan of Treatment Upcoming Encounters Date Type Department Care Team (Late st Contact Info) Description 04/21/2025 9:30 AM CDT Office Visit [facility] D[facility]ology [address] [facility], [place] [address] Raghavendra Barajas MD [address] [facility] [place] [address] documented as of this encounter Visit Diagnoses Diagnosis Personal history of skin cancer- Primary Personal history of other malignant neoplasm of skin documented in this encounter Care Teams Computer Science Teacher Relationship Specialty Start Date End Date [facility] ([facility]) [address] [place] [address] PCP - General 06/17/18 documented as of this encounter
--- OUTSIDE RECORDS SUMMARY | 2024-10-26 21:08 | XMS_ITS | Encounter Summary ---
Author Organization [facility] Address [address] [place] [address] Care Team Providers Care Electricity Trading Analyst Name Role Phone [facility] ([facility]) Primary Care Provi lesli Encounter Details Date Type Department Care Team (Latest Contact Info) Description 04/22/2024 Travel Social History Tobacco Use Types Packs/Day Years Used Date Smoking Tobacco: Former Cigarettes Smokeless Tobacco: Never Alcohol Use Standard Drinks/Week Comments No 0 (1 standard drink = 0.6 oz pur e alcohol) Sex and Gender Information Value Date Recorded Sex Assigned at Not on file Gender Identity Not on file Sexual Orientation Not on file documented as of this encounter Plan of Treatment Upcoming Encounters Date Type Department Care Team (Late st Contact Info) Description 04/21/2025 9:30 AM CDT Office Visit [facility] [address] [facility], [facility] [place] [phone] Raghavendra Barajas MD [address] [facility] [place] [phone] documented as of this encounter Visit Diagnoses Not on filedocumented in this encounter Care Teams Electricity Trading Analyst Relationship Specialty Start Date End Date [facility] ([facility]) [address] [place] [address] PCP - General 06/17/18 documented as of this encounter
--- OUTSIDE RECORDS SUMMARY | 2024-10-26 21:08 | XMS_ITS | Encounter Summary ---
Author Organization [facility] Address [address] [facility] [place] [address] Care Team Providers Care Green Material Value Added Assessor Name Role Phone [facility] ([facility]) Primary Care Provi lesli Encounter Details Date Type Department Care Team (Latest Contact Info) Description 04/17/2023 Travel Social History Tobacco Use Types Packs/Day [...] Visit [facility] [address] [facility], [facility] [place] [phone] Raghavendra Barajas MD [address] [facility] [place] [phone] documented as of this encounter Visit Diagnoses Not on filedocumented in this encounter Care Teams Green Material Value Added Assessor Relationship Specialty Start Date End Date [facility] ([facility]) [address] [place] [address] PCP - General 06/17/18 documented as of this encounter
--- OUTSIDE RECORDS SUMMARY | 2024-10-26 21:08 | XMS_ITS | Encounter Summary ---
Author Organization [facility] Address [address] [facility] [place] [address] Care Team Providers Care Tin Worker Name Role Phone [facility] ([facility]) Primary Care Provi lesli Reason for Visit * Reason Comments Follow-up Encounter Details Date Type Department Care Team (Late Contact [facility]) Description 04/17/2023 10:50 AM CDT Office Visit [facility] - Dermatology [address] [place] [phone] Zainab Espino MD [address] [place] [address] Other seborrheic dermatitis (Primary Dx); Multiple benign melanocytic nevi of upper extremity, lower extremity, and trunk; Seborrheic keratosis; Lentigines; Crow angioma; History of basal cell carcinoma (BCC) of skin Social History Tobacco Use Types Packs/Day Years [...] this encounter Patient Instructions * Patient Instructions* Zainab Espino MD - 04/17/2023 11:38 AM CDT It was a pleasure seeing you in clinic today. We will follow up with you in 6 months. Apply Ketoconazole 2% shampoo to affected dry areas on scalp, forehead, nose, cheeks, chin once daily. Lather and leave on for 3-5 minutes, then wash off. Apply Ketoconazole 2% cream to affected areas on scalp, forehead, between eyebrows, nose, cheeks, chin twice daily. documented in this encounter Progress Notes * Sindy Cardoso MD - 04/17/2023 11:50 AM CDT I have seen and examined the patient with the resident and I agree with the findings and plan of care as documented by the resident. Date of Service: 04/17/2023 1. Bunny derm, flared -keto cream and shampoo Sindy Cardoso MD * Zainab Espino MD - 04/17/2023 11:34 AM CDT Chief Complaint Patient presents with ??? Follow-up HPI: Jp Morley a 62 year old male presents for skin exam. Pt's medical case worker is in clinic room with him today. [...] was normal with the following exceptions: - Browning scaly plaques on scalp, b/l NLF, chin, eyebrows, cheeks - Mcintyre-brown stuck on papules on trunk and extremities - 1-2 mm bright red macules scattered across trunk - Multiple scattered, 2-5 mm, evenly pigmented, mcintyre to brown macules and papules on trunk and extremities - Mcintyre-brown stuck on papules on trunk and extremities Back and groin skin exam limited by wheelchair and mobility. A/P: Jp was seen today for follow-up. Diagnoses and all orders for this visit: Other seborrheic dermatitis - Flaring; moderate on scalp, ears, face - Increase use of ketoconazole (Nizoral) 2 % cream; Apply to affected areas on scalp, forehead, between eyebrows, nose, cheeks, chin twice daily. 30 days supply. - Increase use of ketoconazole (Nizoral) 2 % shampoo; Apply to affected dry areas on scalp, forehead, nose, cheeks, chin once daily. Lather and leave on for 3-5 minutes, then wash off. 30 days supply Multiple benign melanocytic nevi of upper extremity, [...] recommended, pref SPF>30 - Sunscreen handout provided Crow angioma - Benign, reassured patient. History of basal cell carcinoma (BCC) of skin - No evidence of recurrence at previous sites - Sun protection education reviewed, handout provided - Broad-spectrum UVA/B [ZnOx, TiO2, combos w/ avobenzone] sunscreen recommended, pref SPF>30 - M0wrhyi FBSE recommended Sun protection, sunscreen with broad spectrum protection, SPF 30 and above, and self exam discussed. RTC in 6 months Coding Rationale New or est? Established Patient Highest problem complexity: 1 or more chronic illnesses with exacerbation, progression, or side effects of treatment Highest level of risk: Moderate Suggested code: 27121 Patient was seen, examined, and discussed with attending physician, Dr. Cardoso. Zainab Espino MD Dermatology Resident, PGY-4 [facility], Department of Dermatology documented in this encounter Plan of Treatment Upcoming Encounters Date Type Department Care Team (Late st Contact Info) Description 04/21/2025 9:30 AM CDT Office Visit [facility] [address] [facility] [place] [address] Raghavendra Barajas MD [address] [facility] [place] [address] documented as of this encounter Visit Diagnoses Diagnosis Other seborrheic dermatitis- Primary Multiple benign melanocytic nevi of upper extremity, lower extremity, and trunk Seborrheic keratosis Lentigines Other dyschromia Crow angioma Nevus, non-neoplastic History of basal cell carcinoma (BCC) of skin documented in this encounter Care Teams Tin Worker Relationship Specialty Start Date [facility] [address] [place] [address] PCP - General 06/17/18 documented as of this encounter
--- OUTSIDE RECORDS SUMMARY | 2024-10-26 21:08 | XMS_ITS | Encounter Summary ---
Author Organization [facility] Address [address] [facility] [place] [address] Care Team Providers Care Geology Scientist Name Role Phone [facility] ([facility]) Primary Care Provi lesli Reason for Visit * Reason Comments Dermatitis Follow up Encounter Details Date Type Department Care Team (Late [facility]) Description 04/22/2024 9:40 AM CDT Office Visit [facility] Dermatology [address] [place] [phone] Camilo Mckeon MD [address] [place], [place] [address] [address] [phone] Other seborrheic dermatitis (Primary Dx) Social History Tobacco Use Types Packs/Day Years [...] * Patient Instructions* Camilo Mckeon MD - 04/22/2024 10:23 AM CDT Thank you for visiting the [facility] today! Please continue the following instructionsas we discussed in clinic today: 1) Apply the ketoconazole cream to the face twice daily 2) Apply the ketoconazole shampoo to the scalp with showers 3) Apply to clobetasol solution to the scalp daily Please return to clinic in 12 months documented in this encounter Progress Notes * Sindy Cardoso MD - 04/22/2024 10:19 AM CDT I have seen and examined the patient with the resident and I agree with the findings and plan of care as documented by the resident. Date of Service: 04/22/2024 1. Bunny derm -keto cream/shampoo -clobetasol solution Sindy Cardoso MD * Camilo Mckeon MD - 04/22/2024 9:40 AM CDT Chief Complaint Patient presents with Dermatitis Follow up HPI: Jp Morley a 63 year old male presents for Dermatitis. LV: 10/16/2023 Concerns: 1. Seborrheic dermatitis Status of condition: Dry and flaky on scalp and face Current treatment: - Ketoconazole 2% shampoo - not applying daily, depends on nurse patient has - Ketoconazole 2% cream - not applying daily, depends on nurse patient has - Clobetasol solution to the scalp PRN - Facility is inconsistently applying medications. When he gets the medicines he improves, with he doesn't he flares - Today is a slightly worse than average day for him. Personal history of skin cancer: - BCC L cheek s/p Mohs 10/03/22 No problems updated. ROS: No other skin complaints Allergies and medications were reviewed and verified. Past medical history, social history and family history were reviewed. PE: No acute distress. Mood clear/affect appropriate. Alert and oriented. Mucous membranes moist, lips free of lesions. Sclera anicteric, conjunctiva clear. Skin exam was conducted to include the: scalp, face, lips, lids/conjunctiva, ears, neck and was normal with the following exceptions: -On the scalp > forehead > face are thick adherent patches of greasy clumped scale A/P: Jp was seen today for dermatitis. Diagnoses and all orders for this visit: Other seborrheic dermatitis - Chronic, improving, but not at goal, treatment hindered by social determinants of health since the patient is dependent on staff members at his facility to apply medications. - Wrote specific instructions are patient's paperwork on how and when topicals should be applied. - ketoconazole (Nizoral) 2 % cream; Apply to affected areas on scalp, forehead, between eyebrows, nose, cheeks, chin twice daily. 30 days supply. - ketoconazole (Nizoral) 2 % shampoo; Apply to affected dry areas on scalp, forehead, nose, cheeks,chin once daily. Lather and leave on for 3-5 minutes, then wash off. 30 days supply - clobetasol (Temovate) 0.05 % solution; Apply affected area on the scalp daily. 30 days supply. RTC 12 months MDM based billing (click SLUBillingGuide for U smart form; click LOSCALCAMB for [facility] TIME based billing). SluBillingGuide Coding Rationale New or est? Established Patient Camilo Mckeon MD U Dermatology Resident PGY4 documented in this encounter Plan of Treatment Upcoming Encounters Date Type Department Care Team (Late st Contact Info) Description 04/21/2025 9:30 AM CDT Office Visit [facility] [address] [facility] [place] [address] Raghavendra Barajas MD [address] [facility] [place] [phone] documented as of this encounter Visit Diagnoses Diagnosis Other seborrheic dermatitis- Primary documented in this encounter Care Teams Geology Scientist Relationship Specialty Start Date End Date [facility] ([facility]) [address] [place] [address] PCP - General 06/17/18 documented as of this encounter
--- OUTSIDE RECORDS SUMMARY | 2024-10-26 21:08 | XMS_ITS | Clinical Summary ---
Author Organization [facility] Address [address] [facility] [place] [address] Care Team Providers Care Mortar Mixer Name Role Phone [facility] Primary Care Provi lesli Source Comments [facility],non-owned Affiliates and Associated Physician Practices is amultiple site organization consisting of ambulatory clinics and hospital sitesin [place], [place], [place]. This disclosure is being madepursuant to the Care Everywhere program and may not contain all information available regarding this patient. Last updated 18.[facility] Allergies Active Allergy Reactions Criticality Noted Date [...] capsule 09/19/2022 Active ergocalciferol (Drisdol) 1.25 MG (48529 UT) capsule Take 1 (one) capsule by [...] Follow up in: three months with PCP, Extruding Press Operator, Fisher Trot Line, Porcelain Enameling Supervisor and Established eye care giver Hypertension associated with diabetes 11/04/2021 Overview (06/13/2022): [...] Follow up in: three months with PCP, Extruding Press Operator, Fisher Trot Line, Porcelain Enameling Supervisor and Established eye care giver Gastroesophageal reflux disease without esophagi tis 11/04/2021 [...] He pulled his oxygen away, pulled his secured entrance monitor way and tells me to call the [...] Follow up in: three months with PCP, Extruding Press Operator, Fisher Trot Line, Porcelain Enameling Supervisor and Established eye care giver Tricuspid insufficiency 05/12/2016 COPD exacerbation 01/14/2015 Overview (06/13/2022): Overview: COPD Last Assessment & Plan: Chest x-ray was consistent with mild pulmonary congestion but no infiltrates. Start on IVSolu-Medro Duo nebs every 4 hr Albuterol in between as needed per respiratory protocol Executive Business Coach consult Last Assessment & Plan: Condition: stable [...] in between as needed per respiratory protocol Executive Business Coach consult Chronic respiratory failure 11/03/2013 Obstructive sleep [...] Oxygen Concentration 40% 11/13/2013 1 0:01 PM SEC REPORTING CONSULTANT Weight 81.6 kg (180 lb) 03/15/2021 12:00 AM CDT Height 162.6 cm (5' 4 ) 03/15/2021 12:00 AM CDT Body Mass Index 30.9 03/15/2021 12:00 AM CDT Plan of Treatment Upcoming Encounters Date Type Department Care Team (Late st Contact Info) Description 04/21/2025 9:30 AM CDT Office Visit [facility] [address] [facility] [place] [address] Raghavendra Barajas MD [address] [facility] [place] [address] Health Maintenance Due Date Last Done Comments COLOGUARD (AGES 45-75) - COLON CA SCREENING 1960 COLON MONITORING 1960 COLONOSCOPY - COLON CA SCREENING 1960 CT COLONOGRAPHY - COLON CA SCREENING 1960 Colorectal Cancer Screening 1960 FIT - COLON CA SCREENING 1960 FLEX SIG - COLON CA SCREENING 1960 HIV SCREENING 1975 HEPATITIS C SCREENING 12/15/1978 DTAP/TDAP/TD VACCINES (1 - Tdap) 1979 ZOSTER VACCINE (1 of 2) 2010 PNEUMOCOCCAL VACCINE (2 of 2 - PCV) 11/05/2014 11/05/2013 Respiratory Syncytial Virus (RSV) Vaccine Pt: or over 60 yrs (1 - Risk 60-74 years 1-dose series) 2020 DIABETES-SERUM CREATININE 03/15/20222020, 11/13/2013, 11/12/2013, Additional history exists DIABETES - URINE PROTEIN SCREENING 06/13/2022 DIABETES RETINOPATHY SCREENING 06/13/2022 DIABETES-FOOT EXAM WITH MONOFILAMENT 06/13/2022 DIABETES-HGB A1C 06/13/2022 11/14/2013 COVID-19 VACCINE (2 - season) 2024 08/12/2021 INFLUENZA VACCINE (#1) 2024 06/15/2018, 2013 HEPATITIS B VACCINE Aged Out No longe r eligible based on patient's age to complete this topic HIB VACCINE Aged Out No longer eligi ble based on patient's age to complete this topic HPV VACCINE Aged Out No longer eligi ble based on patient's age to complete this topic MENINGOCOCCAL VACCINE Aged Out No lucinda barrington eligible based on patient's age to complete this topic Procedures Procedure Name Priority Date/Time Associated Diagnosis Comments COMPREHENSIVE METABOLIC PANEL STAT 03/15/2021 2:20 AM CDT HEMOGLOBIN A1C AM Draw 11/14/2013 3:59 AM SEC REPORTING CONSULTANT from Last 3 Months or Most Recently Relevant to Health Maintenance Results * (ABNORMAL) COMPREHENSIVE METABOLIC PANEL (03/15/2021 2:20 AM CDT) BUN 27(H) 7 - 26 mg/dL 03/15/2021 2:56 AM [facility] Creatinine 0.63(L) 0.71 - 1.16 mg/dL 03/15/2021 2:56 AM [facility] Sodium 140 136 - 145 mmol/L 03/15/2021 2:56 AM [facility] Potassium 4.1 3.5 - 4.5 mmol/L 03/15/2021 2:56 AM [facility] Chloride 103 98 - 107 mmol/L 03/15/2021 2:56 AM [facility] CO2 32(H) 22 - 29 mmol/L 03/15/2021 2:56 AM [facility] Glucose 95 70 - 115 mg/dL 03/15/2021 2:56 AM [facility] Calcium 9.1 8.4 - 10.2 mg/dL 03/15/2021 2:56 AM [facility] Protein Total 7.5 6.0 - 8.3 g/dL 03/15/2021 2:56 AM [facility] Albumin 3.2(L) 3.4 - 5.0 g/dL 03/15/2021 2:56 AM [facility] Bilirubin Total 0.5 0.2 - 1.2 mg/dL 03/15/2021 2:56 AM [facility] Alkaline Phosphatase 83 40 - 150 U/L 03/15/2021 2:56 AM [facility] ALT 24 5 - 55 U/L 03/15/2021 2:56 AM [facility] AST 21 5 - 34 U/L 03/15/2021 2:56 AM [facility] Anion Gap 9 8 - 18 03/15/2021 2:56 AM [facility] BUN/Creatinine Ratio 43(H) 7 - 23 03/15/2021 2:56 AM [facility] Osmolality Calculated 295 270 - 300 mOsm/kg 03/15/2021 2:56 AM [facility] Albumin/Globulin Ratio 0.7(L) 1.1 - 2.3 03/15/2021 2:[address] [facility] eGFR by CKD-EPI >90 >=90 mL/min/1.7 3 m2 03/15/2021 2:56 AM [facility] Blood BLOOD SPECIMEN / Unknown Venipuncture / Unknown 03/15/2021 2:20 AM CDT 03/15/2021 2:28 AM T Tenzin Chawla MD LAB - CHEMISTRY ORDERABLES [facility] [address] [place] [address], [place] [phone] * (ABNORMAL) HEMOGLOBIN A1C (11/14/2013 3:59 AM SEC REPORTING CONSULTANT) [facility] Hemoglobin A1c 9.2(H) 4.2 - 6.3 % 11/14/2013 4:35 AM SEC REPORTING CONSULTANT [facility] Estimated Average Glucose 217 mg/dL 11/14/2013 4:35 AM SEC REPORTING CONSULTANT [facility] Whole Blood BLOOD SPECIMEN WITH EDTA / Unknown 11/14/2013 3:59 AM SEC REPORTING CONSULTANT 11/14/2013 4:04 AM SEC REPORTING CONSULTANT Bk Lemus MD LAB - CHEMISTRY LAKISHA CRAIG [facility] [address] [place] [address] from Last 3 Months or Most Recently Relevant to Health Maintenance Advance Directives Documents on File Type Date Recorded Patient Front Sight Attacher Expl anation Adv Directive/Living Will/POA 11/15/2013 9:39 [...] 7:00 PM 11/01/2013 7:00 PM Care Teams Mortar Mixer Relationship Specialty Start Date End Date [facility] ([facility]) [address] [place] [address] PCP - General 06/17/18
--- OUTSIDE RECORDS SUMMARY | 2024-10-26 21:09 | XMS_ITS | Encounter Summary ---
Author Organization [facility] Address [address] [place] [id number] Care Team Providers Care Laundry Technician Name Role Phone Zander Luna MD Unavailable Angela Cameron APRN, LAB ANIMAL TECHNOLOGIST Unavailable [phone] Mark Alcantara MD Primary Care Provider [phone] Encounter Details Date Type Department Care Team (Latest Contact Info) Description 08/12/2021 11:15 AM CDT Immunization [facility] Mobile Immunization [address] [place] [address] Need for vaccination (Primary Dx) Social History Tobacco Use Types Packs/Day Years Used Date Smoking Tobacco: Never Assessed Sex and Gender Information Value Date Recorded Sex Assigned at Not on file Legal Sex Male 10:46 PM CDT Gender Identity Not on file Sexual Orientation Not on file documented as of this encounter Plan of Treatment Not on file documented as of this encounter Visit Diagnoses Diagnosis Need for vaccination- Primary Need for prophylactic vaccination and inoculation against unspecified single disease documented in this encounter Additional Health Concerns Assessment Noted Time PHQ-9 Depression Total Score: 2 06/26/20 18 2:00 PM CDT documented as of this encounter Care Teams Laundry Technician Relationship Specialty Start Date End Date Mark Alcantara MD [address] [place] [id number] PCP - General Internal Medicine 03/18/21 Zander Luna MD [address] [place] [address] Consulting Physician Psychiatry 06/26/18 Angela Cameron, TOP CLEANER, LAB ANIMAL TECHNOLOGIST [address] [place] [address] Nurse Practitioner Pulmonary Disease 08/13/19 documented as of this encounter
--- OUTSIDE RECORDS SUMMARY | 2024-10-26 21:09 | XMS_ITS | Clinical Summary ---
Author Organization [facility] Address [address] [place] [id number] Care Team Providers Care Service Delivery Management Consultant Name Role Phone Zander Luna MD Unavailable Angela Cameron APRN, FOXER Unavailable [phone] Mark Alcantara MD Primary Care Provider [phone] Allergies Active Allergy Reactions Criticality Noted Date Comments Acetaminophen Hives 08/05/2016 Medications zolpidem (AMBIEN) 5 MG Tablet Take 5 mg by mouth nightly as needed. Active benztropine (COGENTIN) 0.5 MG Tablet Take 0.5 mg by mouth 2 times daily. Active buPROPion SR (WELLBUTRIN SR) 150 MG TABLET SR 12 HR Take 150 mg by mouth 2 times daily. Active PARoxetine (PAXIL) 40 MG Tablet Take 40 mg by mouth daily. Active furosemide (LASIX) 40 MG Tablet Take 40 mg by mouth daily. Active risperiDONE (RISPERDAL) 2 MG Tablet Take 2 mg by mouth 2 times daily. Active Insulin Lispro Prot & Lispro (HUMALOG MIX 75/25 KWIKPEN SC) 10 Units by Subcutaneous route daily. Active insulin lispro (HUMALOG) 100 UNIT/ML Solution by Subcutaneous route 3 times daily (before meals). Use as directed Active traZODone (DESYREL) 50 MG Tablet Take 50 mg by mouth nightly as needed. Active traMADol (ULTRAM) 50 MG Tablet 0 8 Active Alcohol Swabs (ALCOHOL PREP) Pads 1 Each by Does not apply route 6 times daily. 100 Each 3 8 Active atorvastatin (LIPITOR) 10 MG Tablet Take 1 Tab by mouth daily. 90 Tab 11/07/201 8 Active Aspirin 81 MG Tablet Take 1 Tab by mouth daily. 90 Tab 3 9 Active losartan (COZAAR) 50 MG Tablet Take 1 Tab by mouth daily. 90 Tab 1 9 Active albuterol 108 (90 Base) MCG/ACT Aerosol Solution take 2 Puffs by inhalation every 4 hours as needed for Wheezing. 8.5 g 5 9 Active BASAGLAR KWIKPEN 100 UNIT/ML Solution Pen-injector 10 Units by Subcutaneous route every morning. 3 Syringe 3 9 Active dilTIAZem (CARDIZEM CD) 120 MG CAPSULE SR 24 HR Take 1 Cap by mouth daily. 90 Cap 1 9 Active Blood Glucose Monitoring Suppl Device Diagnosis: Diabetes type 2 e11.9 Blood testing frequency: twice a day 1 Each 9 Active ReliOn Ultra Thin Lancets Misc Test twice daily DX E11.65 200 Each 3 9 Active gabapentin (NEURONTIN) 600 MG Tablet TAKE 1 TABLET BY MOUTH THREE TIMES DAILY 270 Tab 2 9 Active Insulin Syringe-Needle U-100 (RELION INSULIN SYR 0.3ML/31G) 31G X 5/16 0.3 ML Misc USE DIRECTED 300 Each 2 9 Active Insulin Pen Needle (B-D ULTRAFINE III SHORT PEN) 31G X 8 MM Misc USE 1 THREE TIMES DAILY 300 Pen Needle 2 9 Active Misc. Devices Misc Patient okay for long-term placement. 1 Each 9 Active Insulin Pen Needle (PEN NEEDLES 31GX5/16 ) 31G X 8 MM Misc Use as instructed to inject insulin 3 times daily 90 Each 5 9 Active Active Problems Problem Noted Date Diagnosed Date Tobacco dependence syndrome 06/26/2018 Sleep apnea 06/26/2018 ASHD (arteriosclerotic heart disease) 06/26/2018 Congestive heart failure 06/26/2018 Chronic anxiety 06/26/2018 Bipolar affective disorder in remission 04/03/20 18 Overview (06/26/2018): Last Assessment & Plan: Will continue his Risperdal. Depression 03/22/2018 Type 2 diabetes mellitus wit h hyperglycemia, with long-term current use of insulin 11/11/2017 Overview (06/26/2018): Last Assessment & Plan: Mid, given the fact that he was given high-dose steroid it will go up. Will adjust basal bolus insulin. Hypertension, essential 11/11/2017 Overview (06/26/2018): Last Assessment & Plan: Will continue with IV hydralazine as needed for systolic blood pressure elevation more than 180 COPD (chronic obstructive pulmonary disease) Overview (06/26/2018): Overview: COPD Last Assessment & Plan: Chest x-ray was consistent with mild pulmonary congestion but no infiltrates. Start on IVSolu-Medro Duo nebs every 4 hr Albuterol in between as needed per respiratory protocol Engineering Drawings Checker consult Immunizations Immunization Administration Dates Next Due Covid-19, Mrna, Lnp-s, Pf, 30 Mcg/0.3 Ml Dose (Marija flanagan) 08/12/2021 Influenza Vaccine 11/04/2013 Influenza Vaccine, Quadrivalent, PF 06/15/2018 Pneumococcal Vaccine Adult - 23 Valent 8,11/05/2013 Social History Tobacco Use Types Packs/Day Years Used Date Smoking Tobacco: Every Day Cigarettes Started: 06/26/1970 Smokeless Tobacco: Never Tobacco Cessation:Ready to Q uit: No; Counseling Given: Yes Alcohol Use Standard Drinks/Week Comments No 0 (1 standard drink = 0.6 oz pur e alcohol) Sex and Gender Information Value Date Recorded Sex Assigned at Not on file Legal Sex Male 10:46 PM CDT Gender Identity Not on file Sexual Orientation Not on file Last Filed Vital Signs Vital Sign Reading Time Taken Comments Blood Pressure 142/84 05/22/2019 9:36 AM CDT Pulse 78 05/22/2019 9:36 AM CDT Temperature 36.9 ??C (98.4 ??F) 05/22/2019 9:36 AM CD T Respiratory Rate 20 05/22/2019 9:36 AM CDT Oxygen Saturation 95% 05/22/2019 9:36 AM CDT Inhaled Oxygen Concentration - - Weight 76 kg (167 lb 8 oz) 05/22/2019 9:36 AM CD T Height 162.6 cm (5' 4 ) 05/22/2019 9:36 AM CDT Body Mass Index 28.75 05/22/2019 9:36 AM CDT Plan of Treatment Health Maintenance Due Date Last Done Comments Diabetes: Eye Exam 1960 Diabetes: Foot Exam 1960 Hepatitis C Virus (HCV) Screening 1960 TdaP Immunization 1960 Colonoscopy 2005 Colorectal Cancer Screening 2005 Cologuard 2010 Immunochemical Fecal Occult Blood 2010 Zoster Immunization (1 of 2) 2010 PSA Discussion 2015 Diabetes: Hemoglobin A1c 05/21/2019 019, 06/26/2018, 03/22/2018 Pneumococcal Immunization (5 0+ years) (2 of 2 - PCV) 06/15/2019 06/15/2018, 11/05/2013 Diabetes: Nephropathy Screening 07/04/2019 07/04/2018, 06/03/2018, 08/05/2016 Respiratory Syncytial Virus (RSV) Immunization (Adult) (1 - Risk 60-74 years 1-dose series) 2020 Influenza Immunization (#1) 06/29/202405/29, 11/04/2013 SARS-COV-2 Immunization ( season) 2024 08/12/2021, 11/24/2020, 11/03/2020 Pneumococcal Immunization Combined Discontinued 06/15/2018, 11/05/2013 Hepatitis B Immunization Aged Out No longer eligible based on patient's age to complete this topic Meningococcal Immunization (ACWY) Aged Out No longer eligible based on patient's age to complete this topic Rotavirus Immunization Aged Out No lo nger eligible based on patient's age to complete this topic Procedures Procedure Name Priority Date/Time Associated Diagnosis Comments HEMOGLOBIN A1C W/ ESTIMATED GLUCOSE Routine 11/21/2018 11:41 AM CONSTRUCTION DIRECTOR Type 2 diabetes mellitus with hyperglycemia, with long-term current use of insulin (HCC) CMP (COMPREHENSIVE METABOLIC PANEL) Routine 07/04/2018 from Last 3 Months or Most Recently Relevant to Health Maintenance Results * (ABNORMAL) HEMOGLOBIN A1C W/ ESTIMATED GLUCOSE (11/21/2018 11:41 AM CONSTRUCTION DIRECTOR) HGB-A1C 6.1(H) 4.0 - 6.0 % 11/21/2018 4:52 PM CONSTRUCTION DIRECTOR [facility] Est Average Glucose 128.4 mg/dL 11/21/2018 4:52 PM CONSTRUCTION DIRECTOR [facility] Blood specimen (specimen) Venipuncture / Unknown 11/21/2018 11:41 AM CONSTRUCTION DIRECTOR 11/21/2018 11:41 AM CONSTRUCTION DIRECTOR Narrative [facility] - 11/21/2018 4:52 PM CONSTRUCTION DIRECTOR HEMOGLOBIN A1C: DIABETIC PATIENTS: WELL-CONTROLLED: ?? 6.2 - 7.0 INTERMEDIATE WELL-CONTROLLED: ??7.0 - 9.0 POORLY-CONTROLLED: ??>9.0 us Dre Rogers MD CHEMISTRY ORDERABLES Latoya l Result Performing Organization Address City/State/[facility] Co de Phone Number [facility] [place] [address] * CMP (COMPREHENSIVE METABOLIC PANEL) (07/04/2018) Blood specimen (specimen) us Not On File Provider CHEMISTRY ORDERABLES Final Result from Last 3 Months or Most Recently Relevant to Health Maintenance Insurance [place]ID [place] Care Teams Service Delivery Management Consultant Relationship Specialty Start Date End Date Mark Alcantara MD [address] [place] [id number] PCP - General Internal Medicine 03/18/21 [place] [address] [place] [id number] Consulting Physician Psychiatry 06/26/18 Angela Cameron, CUPOLA CHARGER, FOXER [address] [place] [id number] Nurse Practitioner Pulmonary Disease 08/13/19
--- OUTSIDE RECORDS SUMMARY | 2024-10-26 21:09 | XMS_ITS | Encounter Summary ---
Author Organization [facility] Address [address] [place] [address] Care Team Providers Care Sewing Supervisor Name Role Phone [facility] ([facility]) Primary Care Provi lesli Reason for Visit * Reason Comments Pain Abdominal BIBEMS from [facility] for abdominal pain, LLQ PEG tube in place Encounter Details Date Type Department Care Team (Late st Contact Info) Description 03/14/2021 11:51 PM CDT - 03/16/2021 7:56 AM T Emergency [facility] EMERGENCY DEPARTMENT [address] [place] [phone] Tenzin Chawla MD [address] [place] [address] [place] [address] Javier Borjas MD [address] [place] [address] [place] [address] Abdominal pain, epigastric; Constipation, unspecified constipation type Discharge Disposition: Home or Self Care Social History Tobacco Use Types Packs/Day Years Used Date Smoking Tobacco: Never Assessed Sex and Gender Information Value Date Recorded Sex Assigned at Not on file Gender Identity Not on file Sexual Orientation Not on file documented as of this encounter Last Filed Vital Signs Vital Sign Reading Time Taken Comments Blood Pressure 114/64 03/15/2021 3:05 PM CDT Pulse 69 03/15/2021 3:05 PM CDT Temperature 36.9 ??C (98.5 ??F) 03/15/2021 3:05 PM CD T Respiratory Rate 16 03/15/2021 3:05 PM CDT Oxygen Saturation 95% 03/15/2021 3:05 PM CDT Inhaled Oxygen Concentration - - Weight 81.6 kg (180 lb) 03/15/2021 12:00 AM CDT Height 162.6 cm (5' 4 ) 03/15/2021 12:00 AM CDT Body Mass Index 30.9 03/15/2021 12:00 AM CDT documented in this encounter Discharge Instructions * Attachments The following attachments cannot be sent through Care Everywhere. * Constipation (AfterCare(R) Instructions(ER/ED)) (Polish) documented in this encounter Medications at Time of Discharge Medication Sig Dispensed Refills Start Date End Date albuterol (PROVENTIL;VENTOLIN) (5 MG/ML) 0.5% nebulizer solution Inhale 0.5 mL by mouth 4 times daily. 0 0 11/14/2013 amantadine (Symmetrel) 100 MG capsule 01/25/2021 amLODIPine (NORVASC) 10 MG tablet Take 1 (one) tablet by mouth once daily ARIPiprazole (ABILIFY) 10 MG tablet Take 1 Tab by mouth once daily. 0 0 11/14/2013 atorvastatin (Lipitor) 10 MG tablet 01/27/2020 enoxaparin (LOVENOX) injection Inject 40 mg subcutaneously once daily. 0 0 11/14/2013 furosemide (LASIX) 40 MG tablet Take 1 (one) tablet by mouth once daily glipiZIDE (GLUCOTROL) 10 MG tablet Take 1 (one) tablet by mouth daily before breakfast guaifenesin ER 12hr 1200 MG TB12 Take 1,200 mg by mouth every 12 hours. 0 0 11/14/2013 ipratropium (ATROVENT) 0.02 % nebulizer solution Inhale 0.5 mg by mouth 4 times daily. 0 0 11/14/2013 lisinopril (PRINIVIL; ZESTRIL) 20 MG tablet Take 1 (one) tablet by mouth once daily pantoprazole EC (PROTONIX) 40 MG tablet Take 1 (one) tablet by mouth once daily PARoxetine (PAXIL) 40 MG tablet Take 1 (one) tablet by mouth once daily polyethylene glycol 3350 (MIRALAX) 17 GM/SCOOP powder 17 (seventeen) g by Enteral Tube route once daily 238 g 03/15/2021 predniSONE (DELTASONE) 10 MG tablet Take 3 tabs once daily for 2 days, two tabs once daily for 2 days, one tab once daily for 2 days, then stop. 0 0 11/14/2013 traZODone (DESYREL) 50 MG tablet Take 1 Tab by mouth nightly as needed for Insomnia. 0 0 11/14/2013 acetaminophen (TYLENOL) 325 MG tablet Take 2 Tabs by mouth every 6 hours as needed for Pain. Maximum allowable Acetaminophen amount = 4 Grams (4000 mg) / 24 hours. 0 0 11/14/2013 04/22/2024 aspirin 325 MG tablet Take 1 Tab by mouth once daily. 0 0 11/14/2013 10/16/2023 budesonide-formoterol (SYMBICORT) 160-4.5 MCG/ACT inhaler Inhale 2 Puffs by mouth 2 times daily. 0 0 11/14/2013 10/16/2023 documented as of this encounter ED Notes * Sammy Broussard RN - 03/15/2021 2:23 PM CDT Transportation with [facility] set up at this time. * Sammy Broussard RN - 03/15/2021 12:32 PM CDT Pt resting in stretcher. Side rails up and bed locked in place. Sitter at bedside. Pt in NAD at this time. * Devi Lyman RN - 03/15/2021 11:03 AM CDT Pt agitation continuing to increase. MD notified. * Devi Lyman RN - 03/15/2021 10:06 AM CDT Pt becoming increasingly more agitated and restless. Overfelt informed of pt behavior, orders for PO Ativan placed. * Devi Lyman RN - 03/15/2021 9:32 AM CDT Pt has not had bowel movement. tour bus driver/guide remains at bedside. * Devi Lyman RN - 03/15/2021 9:11 AM CDT Pt's case manager specialist, Joan, can be reached at [phone]. * Devi Lyman RN - 03/15/2021 7:35 AM CDT Pt found to be walking around in his room, unsteady on his feet. Pt stating that he had to use the bathroom. Pt assisted to commode, but continually trying to get up. CSN notified of need for safety security officer to prevent pt injury. * Javier Borjas MD - 03/15/2021 7:01 AM CDT EM ASSUME CARE NOTE Patient signed out at change of shift by Dr. Chawla at 7:00 AM. Jp Morley is a 60 year old male is being evaluated for abdominal pain. Patient is a resident at [facility] and is A&Ox2 at baseline. Patient was transferred to [facility] ED from [place] after reported SBO. CT imaging here shows markedly distended urinary bladder as well as moderate colonic gas and stool burden. At this time the patient's condition is Stable. Pending enema, mag citrate, and straight catheterization. Plan is reevaluation after patient has received enema, mag citrate, and has been straight catheterized. Vitals: 03/15/21 0743 03/15/21 1048 03/15/21 1050 03/15/21 1505 BP: 119/93 114/64 Pulse: 69 Resp: 16 Temp: 98.5 ??F (36.9 ??C) SpO2: 98% 94% 95% Weight: Height: Labs Reviewed CBC W AUTO DIFFERENTIAL - Abnormal; Notable for the following components: Result Value RBC 3.35 (*) Hemoglobin 9.7 (*) Hematocrit 31.8 (*) MCHC 30.5 (*) RDW-SD 54.4 (*) RDW-CV 15.5 (*) Eosinophils % 6.8 (*) Eosinophils Absolute 0.55 (*) All other components within normal limits COMPREHENSIVE METABOLIC PANEL - Abnormal; Notable for the following components: BUN 27 (*) Creatinine 0.63 (*) CO2 32 (*) Albumin 3.2 (*) BUN/Creatinine Ratio 43 (*) Albumin/Globulin Ratio 0.7 (*) All other components within normal limits URINALYSIS REFLEX TO MICROSCOPIC NO CULTURE - Abnormal; Notable for the following components: Color UA Cindy (*) Urobilinogen UA 2.0 (*) RBC UA 11-20 (*) WBC UA 11-20 (*) Bacteria UA Trace (*) Yeast Budding UA Many (*) All other components within normal limits Narrative: LIPASE BLOOD - Normal PT-INR [facility] - Normal TROPONIN I - Normal TROPONIN I - Normal TROPONIN I - Normal CT ABDOMEN AND PELVIS WITH IV CONTRAST - Acute Abdomen Final Result Procedure Information DATE: 03/15/2021 3:45 AM EXAMINATION: [...] was electronically signed by CRIS JOE on 03/15/2021 10:01 AM . Further course: 7:50 AM -- Patient has received enema at this time with little relief. Patient is currently receiving mag citrate. Will reevaluate after completion. 10:48 AM -- Called to patient's room by patient's nurse and patient's sitter. Patient was attempting to get out of bed and had a near-fall. However, the patient's sitter was able to lower the patientto the ground prior to falling. Will give patient Zyprexa. 1:53 PM -- After rectal exam, there is no stool ball appreciated. Labs and imaging have been reviewed and patient has received enema and mag citrate. Patient is able to be discharged at this time. 2:34 PM -- Called to patient's room by nurse after patient was found down by staffing executive. Per nurse, patient's sitter was assigned to a different room prior to the incident. Patient was helpedback into bed. He denies hitting his head, head pain, or pain in any other location. Negative focalexam. Patient now has a sitter again until he has transportation [facility]. Clinical Impression: 1. Abdominal pain, epigastric 2. Constipation, unspecified constipation type Disposition: Discharge By signing my name below, I, Malena Jhaveri, attest that this documentation has been prepared underthe direction and in the presence of Dr. Borjas. Signed: Jessi Baca. I personally performed the services described in this documentation. All medical record entries made by the scribe were at my direction and in my presence. I have reviewed the chart and agree that the record reflects my personal performance and is accurate and complete. * Tenzin Chawla MD - 03/15/2021 2:10 AM CDT Emergency Medicine Attending Note Patient seen as a team with the resident physician, Dr. Smith. Interval History : Chief Complaint Patient presents with ??? Pain Abdominal BIBEMS from [facility] for abdominal pain, LLQ PEG tube in place Jp Morley is a 60 year old male presenting to the ED for abdominal pain. Patient BIBEMS from [facility] for reported abdominal pain. Patient was reportedly evaluated at [facility] and found to have ?SBO so was transferred here for evaluation. Here in ED, patient is A&Ox1-2, unable to provide any history. He denies complaints at this time. Patient has PEG tube in place in left abdomen. HPI limited 2/2 mental acuity, provided by EMS No past medical history on file. No past surgical history on file. Social History Socioeconomic History ??? Marital status: Spouse name: Not on file ??? Number of children: Not on file ??? Years of education: Not on file ??? Highest education level: Not on file Occupational History ??? Not on file Tobacco Use ??? Smoking status: Not on file Substance and Sexual Activity ??? Alcohol use: Not on file ??? Drug use: Not on file ??? Sexual activity: Not on file Other Topics Concern ??? Not on file Social History Narrative ??? Not on file Social Determinants of Health Financial Resource Strain: ??? Difficulty of Paying Living Expenses: Food Insecurity: ??? Worried About Running Out of Food in the Last Year: ??? Ran Out of Food in the Last Year: Transportation Needs: ??? Lack of Transportation (Medical): ??? Lack of Transportation (Non-Medical): Physical Activity: ??? Days of Exercise per Week: ??? Minutes of Exercise per Session: Stress: ??? Feeling of Stress : Social Connections: ??? Frequency of Communication with Friends and Family: ??? Frequency of Social Gatherings with Friends and Family: ??? Attends Restoration Services: ??? Active Member of Clubs or Organizations: ??? Attends Club or Organization Meetings: ??? Marital Status: Intimate Partner Violence: ??? Fear of Current or Ex-Partner: ??? Emotionally Abused: ??? Physically Abused: ??? Sexually Abused: No Known Allergies Review of Systems: (+) positive Review of Systems Unable to perform ROS: Mental acuity Physical Exam Vitals: 03/15/21 0000 03/15/21 0402 BP: 156/93 115/63 Pulse: 99 69 Resp: 14 12 Temp: 98.2 ??F (36.8 ??C) 98.3 ??F (36.8 ??C) SpO2: 94% 94% Weight: 81.6 kg (180 lb) Height: 1.626 m (5' 4 ) Physical Exam Vitals and nursing note reviewed. Constitutional: General: He is awake. He is not in acute distress. Appearance: He is well-developed and well-groomed. HENT: Head: Normocephalic and atraumatic. Mouth/Throat: Mouth: Mucous membranes are moist. Eyes: Conjunctiva/sclera: Conjunctivae normal. Pupils: Pupils are equal, round, and reactive to light. Cardiovascular: Rate and Rhythm: Normal rate and regular rhythm. Pulmonary: Effort: Pulmonary effort is normal. No respiratory distress. Breath sounds: Normal breath sounds. No wheezing. Abdominal: General: There is no distension. Palpations: Abdomen is soft. Tenderness: There is no guarding or rebound. Comments: Mild generalized tenderness. PEG tube in place in left abdomen Musculoskeletal: General: Normal range of motion. Cervical back: Normal range of motion and neck supple. Skin: General: Skin is warm and dry. Neurological: General: No focal deficit present. Mental Status: He is alert. Comments: Moving all extremities spontaneously and equally. Oriented x1-2 Medical Decision Making: Problem List: 1. Abdominal pain 2. Reported SBO on OSH imaging - Ddx: SBO vs ileus vs colitis vs pancreatitis vs gastritis vs ACS vs other - PLAN: Labs, UA, EKG, CT a/p, likely ACS consult see below for further orders/plan. Orders Placed This Encounter ??? CT ABDOMEN AND PELVIS WITH IV CONTRAST - Acute Abdomen ??? CBC W AUTO DIFFERENTIAL ??? COMPREHENSIVE METABOLIC PANEL ??? LIPASE BLOOD ??? PT-INR [facility] ??? TROPONIN I ??? URINALYSIS REFLEX TO MICROSCOPIC NO CULTURE ??? TROPONIN I ??? EKG 12-LEAD ??? ondansetron (Zofran) injection 4 mg ??? iopamidol (Isovue 370) 76 % contrast 0-150 mL ??? 0.9% NaCl IV Flush Bag ??? 0.9% NaCl IV Bolus ??? iopamidol (Isovue 370) contrast ADS Med ??? sodium phosphate rectal (Fleet) enema 133 mL ??? magnesium citrate solution 300 mL Data Review: (All Labs/Imaging/ECG, other diagnostics independently interpreted by me.) - MONITORING: The patient's Room Attendant Rhythm was interpreted by me. The monitor worker showed NSR. The patient's Oxygen Saturation Monitor was interpreted by me. The reading was 100%. The patient was on RA at the time of the reading. This is interpreted as normal. - ECG: Interpreted by me: Date: 03/15/2021 Time: 29 R&R: SR with a ventricular rate of 81 bpm Additional findings: Bifascicular block TWI in leads 2, 3, V4-V6, AVF, V3 No ST elevation - LABS: Labs Reviewed CBC W AUTO DIFFERENTIAL - Abnormal; Notable for the following components: Result Value RBC 3.35 (*) Hemoglobin 9.7 (*) Hematocrit 31.8 (*) MCHC 30.5 (*) RDW-SD 54.4 (*) RDW-CV 15.5 (*) Eosinophils % 6.8 (*) Eosinophils Absolute 0.55 (*) All other components within normal limits COMPREHENSIVE METABOLIC PANEL - Abnormal; Notable for the following components: BUN 27 (*) Creatinine 0.63 (*) CO2 32 (*) Albumin 3.2 (*) BUN/Creatinine Ratio 43 (*) Albumin/Globulin Ratio 0.7 (*) All other components within normal limits LIPASE BLOOD - Normal PT-INR [facility] - Normal TROPONIN I - Normal TROPONIN I - Normal URINALYSIS REFLEX TO MICROSCOPIC NO CULTURE TROPONIN I - IMAGING: CT ABDOMEN AND PELVIS WITH IV CONTRAST - Acute Abdomen (Results Pending) No results found. - MEDS: Medications iopamidol (Isovue 370) 76 % contrast 0-150 mL (has no administration in time range) 0.9% NaCl IV Flush Bag (0 mL Intravenous Not Administered 03/15/21220) magnesium citrate solution 300 mL (has no administration in time range) ondansetron (Zofran) injection 4 mg (4 mg Intravenous $ Given 03/15/21220) 0.9% NaCl IV Bolus (1,000 mL Intravenous $ Bolus New Bag 03/15/21220) iopamidol (Isovue 370) contrast ADS Med (100 mL $ Given - Contrast 03/15/21333) sodium phosphate rectal (Fleet) enema 133 mL (133 mL Rectal $ Given 03/15/21 0606) ED COURSE 4:12 AM- Spoke with [facility] staff, they were unable to provide much further history but state patient is A&Ox2 at baseline. 5:29 AM- Labs reviewed- Troponin negative x2. Lipase normal. CBC and CMP grossly unremarkable. CT shows markedly distended urinary bladder as well as moderate colonic gas and stool burden. Will have RN straight cath and give enema. 7:10 AM- Signed out to Dr. Borjas, pending straight cath and BM This patient was evaluated during the COVID-19 pandemic. Orders and Medicine administered during this encounter: Orders Placed This Encounter ??? CT ABDOMEN AND PELVIS WITH IV CONTRAST - Acute Abdomen ??? CBC W AUTO DIFFERENTIAL ??? COMPREHENSIVE METABOLIC PANEL ??? LIPASE BLOOD ??? PT-INR [facility] ??? TROPONIN I ??? URINALYSIS REFLEX TO MICROSCOPIC NO CULTURE ??? TROPONIN I ??? EKG 12-LEAD ??? ondansetron (Zofran) injection 4 mg ??? iopamidol (Isovue 370) 76 % contrast 0-150 mL ??? 0.9% NaCl IV Flush Bag ??? 0.9% NaCl IV Bolus ??? iopamidol (Isovue 370) contrast ADS Med ??? sodium phosphate rectal (Fleet) enema 133 mL ??? magnesium citrate solution 300 mL Medications iopamidol (Isovue 370) 76 % contrast 0-150 mL (has no administration in time range) 0.9% NaCl IV Flush Bag (0 mL Intravenous Not Administered 03/15/21220) magnesium citrate solution 300 mL (has no administration in time range) ondansetron (Zofran) injection 4 mg (4 mg Intravenous $ Given 03/15/21220) 0.9% NaCl IV Bolus (1,000 mL Intravenous $ Bolus New Bag 03/15/21220) iopamidol (Isovue 370) contrast ADS Med (100 mL $ Given - Contrast 03/15/21 0334) sodium phosphate rectal (Fleet) enema 133 mL (133 mL Rectal $ Given 03/15/21 0606) Clinical Impression: 1. Abdominal pain, epigastric 2. Constipation, unspecified constipation type Disposition: Pending- signed out to Dr. Borjas By signing my name below, I, Luis Avery, attest that this documentation has been prepared under the direction and in the presence of Dr. Chawla. Signed: Jessi Seay. Date: 03/15/2021. I, Dr. Chawla, personally performed the services described in this documentation. All medical record entries made by the scribe were at my direction and in my presence. I have reviewed the chart and agree that the record reflects my personal performance and is accurate and complete. * Dora Solorio RN - 03/14/2021 11:52 PM CDT Bed: SUAREZ 2A Expected date: Expected time: Means of arrival: Comments: Jp Morley documented in this encounter Plan of Treatment Upcoming Encounters Date Type Department Care Team (Late st Contact Info) Description 04/21/2025 9:30 AM CDT Office Visit [facility] - Dermatology [address] [place] [address] Raghavendra Barajas MD [address] [facility] [place] [address] documented as of this encounter Procedures Procedure Name Priority Date/Time Associated Diagnosis Comments CARDIAC EKG ORDER 03/16/2021 9:4 6 AM CDT URINALYSIS REFLEX TO MICROSCOPIC NO CULTURE STAT 03/15/2021 9:55 AM CDT TROPONIN I Timed 03/15/2021 7:44 AM CDT TROPONIN I Timed 03/15/2021 4:[address] ABDOMEN PELVIS W CONTRAST STAT 03/15/2021 3:44 AM CDT Abdominal pain, epigastric PT-INR [facility] STAT 03/15/2021 2:20 AM CDT TROPONIN I STAT 03/15/2021 2:20 AM CDT CBC W AUTO DIFFERENTIAL STAT 03/15/2021 2:20 AM CDT COMPREHENSIVE METABOLIC PANEL STAT 03/15/2021 2:20 AM CDT LIPASE BLOOD STAT 03/15/2021 2:20 AM CDT EKG 12-LEAD Routine 03/15/2021 12:30 AM CDT Abdominal pain, epigastric documented in this encounter Results * CARDIAC EKG ORDER (03/16/2021 9:46 AM CDT) Narrative 03/16/2021 9:46 AM CDT Ordered by an unspecified provider. Scanned Document CARDIAC SERVICES ORD ERABLES * (ABNORMAL) URINALYSIS REFLEX TO MICROSCOPIC NO CULTURE (03/15/2021 9:55 AM CDT) Color UA Cindy(A) Straw, Yellow 03/15/2021 10:35 AM [facility] Clarity UA Clear Clear 03/15/2021 10:35 AM [facility] Specific [place] UA 1.024 1.005 - 1.030 03/15/2021 10:35 AM [facility] pH UA 6.0 5.0 - 8.0 pH 03/15/2021 10:35 AM [facility] Protein UA Negative Negative 03/15/2021 10:35 AM [facility] Glucose UA Negative Negative 03/15/2021 10:35 AM [facility] Ketone UA Negative Negative 03/15/2021 10:35 AM [facility] Bilirubin UA Negative Negative 03/15/2021 10:35 AM [facility] Blood UA Negative Negative 03/15/2021 10:35 AM [facility] Nitrite UA Negative Negative 03/15/2021 10:35 AM [facility] Leukocyte Esterase Negative Negative 03/15/2021 10:35 AM [facility] Urobilinogen UA 2.0(A) Negative mg/dL 03/15/2021 10:35 AM [facility] RBC UA 11-20(A) None Seen, 0-2, 3-5 /HPF 03/15/2021 10:35 AM [facility] WBC UA 11-20(A) None Seen, 0-5 /HPF 03/15/2021 10:35 AM [facility] Bacteria UA Trace(A) None /HPF 03/15/2021 10:35 AM [facility] Yeast Budding UA Many(A) None /HPF 03/15/20 10:35 AM [facility] Squamous Epithelial Cells UA 0-2 None Seen, 0-2, 3-5 /HPF 03/15/2021 10:35 AM CDT [facility] Mucus UA 1+ /LPF 03/15/2021 10:35 AM CDT [facility] Urine URINE SPECIMEN OBTAINED BY CLEAN CATCH PROCEDURE / Unknown Collection / Unknown 03/15/2021 9:55 AM CDT 03/15/2021 10:04 AM CDT Narrative [facility] - 03/15/2021 10:35 AM CDT Tenzin Chawla MD LAB - URINALYSI S ORDERABLES [address] [address], [place] [phone] * TROPONIN I (03/15/2021 7:44 AM CDT) Troponin I 0.011 <0.032 ng/mL 03/15/2021 9:04 AM CDT [facility] Blood BLOOD SPECIMEN / Unknown Venipuncture / Unknown 03/15/2021 7:44 AM CDT 03/15/2021 8:15 AM CDT Tenzin Chawla MD LAB - CHEMISTRY ORDERABLES [address] [address], [place] [phone] * TROPONIN I (03/15/2021 4:17 AM CDT) Troponin I 0.016 <0.032 ng/mL 03/15/2021 4:52 AM CDT [facility] Blood BLOOD SPECIMEN / Unknown Venipuncture / Unknown 03/15/2021 4:17 AM CDT 03/15/2021 4:23 AM CDT Tenzin Chawla MD LAB - CHEMISTRY ORDERABLES [address] [address] [phone] * CT ABDOMEN AND PELVIS WITH IV [...] . Tenzin Chawla MD CT ORDERABLES * TROPONIN I (03/15/2021 2:20 AM CDT) Troponin I 0.011 <0.032 ng/mL 03/15/2021 3:04 AM CDT [facility] Blood BLOOD SPECIMEN / Unknown Venipuncture / Unknown 03/15/2021 2:20 AM CDT 03/15/2021 2:28 AM CDT Tenzin Chawla MD LAB - CHEMISTRY ORDERABLES Performing Organization Address [facility]/ZIP Co de Phone Number [address] [address], [facility] [phone] * PT-INR [facility] (03/15/2021 2:20 AM CDT) [facility] PT 14.6 12.1 - 14.8 Seconds 03/15/2021 2:39 AM CDT [facility] INR 1.2 See Comment 03/15/2021 2:39 AM T [facility] Comment:The suggested therap eutic range for standard coumadin (warfarin) therapy is an INR of 2.0-3.0. For high-risk patients (Mechanical Mitral Valve Prosthesis, etc.), the suggested prophylactic therapeutic range is an INR of 2.5-3.5. Blood BLOOD SPECIMEN / Unknown Venipuncture / Unknown 03/15/2021 2:20 AM CDT 03/15/2021 2:31 AM CDT Tenzin Chawla MD LAB - COAGULATI ON ORDERABLES Performing Organization Address City/[facility]/ZIP Co de Phone Number [address] [address], [facility] [phone] * LIPASE BLOOD (03/15/2021 2:20 AM CDT) Pathologist [facility] Lipase 16 8 - 78 U/L 03/15/2021 2:56 AM CDT [facility] Blood BLOOD SPECIMEN / Unknown Venipuncture / Unknown 03/15/2021 2:20 AM CDT 03/15/2021 2:28 AM CDT Tenzin Chawla MD LAB - CHEMISTRY ORDERABLES [facility] [address] [place] [address], [facility] [phone] * (ABNORMAL) COMPREHENSIVE METABOLIC PANEL (03/15/2021 2:20 AM [facility]) BUN 27(H) 7 - 26 mg/dL 03/15/2021 2:56 AM [facility] Creatinine 0.63(L) 0.71 - 1.16 mg/dL 03/15/2021 2:56 AM [facility] Sodium 140 136 - 145 mmol/L 03/15/2021 2:56 AM [facility] Potassium 4.1 3.5 - 4.5 mmol/L 03/15/2021 2:56 AM [facility] Chloride 103 98 - 107 mmol/L 03/15/2021 2:56 AM [facility] CO2 32(H) 22 - 29 mmol/L 03/15/2021 2:56 AM [facility] Glucose 95 70 - 115 mg/dL 03/15/2021 2:56 AM [facility] Calcium 9.1 8.4 - 10.2 mg/dL 03/15/2021 2:56 AM [facility] Protein Total 7.5 6.0 - 8.3 g/dL 03/15/2021 2:56 AM [facility] Albumin 3.2(L) 3.4 - 5.0 g/dL 03/15/2021 2:56 AM [facility] Bilirubin Total 0.5 0.2 - 1.2 mg/dL 03/15/2021 2:56 AM [facility] Alkaline Phosphatase 83 40 - 150 U/L 03/15/2021 2:56 AM [facility] ALT 24 5 - 55 U/L 03/15/2021 2:56 AM [facility] AST 21 5 - 34 U/L 03/15/2021 2:56 AM [facility] Anion Gap 9 8 - 18 03/15/2021 2:56 AM [facility] BUN/Creatinine Ratio 43(H) 7 - 23 03/15/2021 2:56 AM [facility] Osmolality Calculated 295 270 - 300 mOsm/kg 03/15/2021 2:56 AM [facility] Albumin/Globulin Ratio 0.7(L) 1.1 - 2.3 03/15/2021 2:56 AM [facility] eGFR by CKD-EPI >90 >=90 mL/min/1.7 3 m2 03/15/2021 2:56 AM [facility] Blood BLOOD SPECIMEN / Unknown Venipuncture / Unknown 03/15/2021 2:20 AM CDT 03/15/2021 2:28 AM T Tenzin Chawla MD LAB - CHEMISTRY ORDERABLES [facility] [address] [place] [address], [facility] [phone] * (ABNORMAL) CBC W AUTO DIFFERENTIAL (03/15/2021 2:20 AM CDT) WBC 8.1 3.5 - 10.5 10? 3 /uL 03/15/2021 2:35 AM [facility] RBC 3.35(L) 4.30 - 5.70 10? 6 /uL 03/15/2021 2:35 AM [facility] Hemoglobin 9.7(L) 12.0 - 17.6 g/dL 03/15/2021 2:35 AM [facility] Hematocrit 31.8(L) 35.2 - 51.7 % 03/15/2021 2:35 AM [facility] MCV 94.9 80.7 - 98.3 fL 03/15/2021 2:35 AM [facility] MCH 29.0 26.7 - 34.0 pg 03/15/2021 2:35 AM [facility] MCHC 30.5(L) 30.8 - 35.9 g/dL 03/15/2021 2:35 AM [facility] Platelet Count 239 150 - 400 10? 3 /uL 03/15/2021 2:35 AM [facility] RDW-SD 54.4(H) 36.0 - 50.0 fL 03/15/2021 2:35 AM [facility] RDW-CV 15.5(H) 11.2 - 14.8 % 03/15/2021 2:35 AM [facility] MPV 10.1 9.4 - 12.9 fL 03/15/2021 2:35 AM [facility] nRBC Absolute 0.00 0 10? 3 /uL 03/15/2021 2:35 AM [facility] nRBC Auto 0.0 0 /100 WBC 03/15/2021 2:35 AM [facility] Neutrophils % 57.4 35.0 - 70.0 % 03/15/2021 2:35 AM [facility] Lymphocytes % 23.2 20.0 - 43.0 % 03/15/2021 2:35 AM [facility] Monocytes % 11.7 5.0 - 13.0 % 03/15/2021 2:35 AM [facility] Eosinophils % 6.8(H) 0.0 - 6.0 % 03/15/2021 2:35 AM [facility] Basophil % 0.4 0.0 - 1.5 % 03/15/2021 2:35 AM [facility] Neutrophils Absolute 4.6 1.6 - 7.0 10? 3 /uL 03/15/2021 2:35 AM [facility] Lymphocyte Absolute 1.9 1.1 - 3.9 10? 3 /uL 03/15/2021 2:35 AM [facility] Monocytes Absolute 0.94 0.26 - 1.07 10? 3 /uL 03/15/2021 2:35 AM [facility] Eosinophils Absolute 0.55(H) 0.00 - 0.08 10? 3 /uL 03/15/2021 2:35 AM [facility] Basophils Absolute 0.03 0.00 - 0.08 10? 3 /uL 03/15/2021 2:35 AM [facility] Immature Granulocytes % 0.5 0.0 - 1.0 % 03/15/2021 2:35 AM [facility] Immature Granulocytes Absolute 0.04 03/15/2021 2:35 AM CDT [facility] Blood BLOOD SPECIMEN / Unknown Venipuncture / Unknown 03/15/2021 2:20 AM CDT 03/15/2021 2:28 AM CDT Tenzin Chawla MD LAB - HEMATOLOG Y ORDERABLES Performing Organization Address City/[facility]/ZIP Co de Phone Number [facility] [address] [place] [address], [facility] [phone] * EKG 12-LEAD (03/15/2021 12:30 AM CDT) Pathologist [facility] Ventricular Rate 81 BPM SL MUSE Atrial Rate 81 BPM [facility] MUSE P-R Interval 206 ms [facility] MUSE QRS Duration ms 150 ms [facility] MUSE Q-T Interval ms 410 ms [facility] MUSE QTC Calculation (Bezet) 476 ms SL MUSE Calculated P [place] -85 degrees SL MUSE Calculated R [place] -66 degrees [facility] MUSE Calculated T [place] -81 degrees [facility] MUSE Interpretation EKG ATRIAL FLUTTER WITH 3:1 A-V CONDUCTION RIGHT BUNDLE BRANCH BLOCK LEFT ANTERIOR FASCICULAR BLOCK BIFASCICULAR BLOCK ABNORMAL ECG NO PREVIOUS ECGS AVAILABLE Confirmed by fellow Lindsey Whiteside ([id number]) on 03/15/2021 11:09:30 AM Confirmed by Jose Sanchez ([id number]) on 03/17/2021 9:42:37 AM [facility] MUSE 03/15/2021 12:3 0 AM CDT 03/17/2021 9:42 AM CDT Tenzin Chawla MD ECG ORDERABLES Performing Organization Address City/[facility]/ZIP Co de Phone Number [facility] MUSE documented in this encounter Visit Diagnoses Diagnosis Abdominal pain, epigastric Constipation, unspecified constipation type documented in this encounter Administered Medications Inactive Administered Medications - up to 3 most recent administrations Medication Order XOCHITL Action Action Date Dose Rate Site 0.9% NaCl IV Bolus 1,000 mL, at 1,935.48 mL/hr, Administer over 31 Minutes, NOW, 1 dose, On Sun03/15/21 at 0030 $ Bolus New Bag 03/15/2021 2:21 AM CDT 1,000 mL 1935.48 mL/hr iopamidol (Isovue 370) 76 % contrast 0-150 mL 0-150 mL, Intravenous, CONTRAST ONCE, 1 dose, Starting on Sun03/15/21 at 0023, Until Sun03/16/21 at 0856 iopamidol (Isovue 370) contrast ADS Med 1 dose, Starting on Sun03/15/21 at 0329, Until Sun03/15/21 at 0334, Created by cabinet override $ Given - Contrast 03/15/2021 3:34 AM CDT 100 mL LORazepam (Ativan) tablet 1 mg 1 mg, Oral, NOW, 1 dose, On Sun03/15/21 at 1000 $ Given 03/15/2021 9:59 AM CDT 1 mg magnesium citrate solution 300 mL 300 mL (1 bottles), Enteral Tube, NOW, 1 dose, On Sun03/15/21 at 0545 $ Given 03/15/2021 7:45 AM CDT 300 mL G Tube OLANZapine (ZyPREXA) injection 5 mg 5 mg, Intramuscular, ONCE, 1 dose, On Sun03/15/21 at 1115, Monitor for orthostatic hypotension prior to the administration. Reconstitute with 2.1 mL of sterile water to give approximately 5 mg/mL concentration. $ Given 03/15/2021 11:05 AM CDT 5 mg Right Deltoid ondansetron (Zofran) injection 4 mg 4 mg, Intravenous, ONCE, 1 dose, On Sun03/15/21 at 0045, Administer over 2 to 5 minutes. $ Given 03/15/2021 2:21 AM CDT 4 mg polyethylene glycol 3350 (Miralax) packet 17 g 17 g, Enteral Tube, ONCE, 1 dose, On Sun03/15/21 at 0945, Mix in 8 ounces of water, juice, soda, coffee or tea prior to administration $ Given 03/15/2021 11:08 AM CDT 17 g G Tube sodium phosphate rectal (Fleet) enema 133 mL 133 mL (1 enema), Rectal, ONCE, 1 dose, On Sun03/15/21 at 0415 $ Given 03/15/2021 6:06 AM CDT 133 mL documented in this encounter Active and Recently Administered Medications Times are shown in CDT. Scheduled Medication Order 03/14/2021 03/15/2021 03/16/2021 0.9% NaCl IV Bolus (COMPLETED) 1,000 mL, at 1,935.48 mL/hr, Administer over 31 Minutes, NOW, 1 dose, On Sun03/15/21 at 0030 0221 ($ Bolus New Bag - Provider: Ernestina Lucio RN) iopamidol (Isovue 370) 76 % contrast 0-150 mL 0-150 mL, Intravenous, CONTRAST ONCE, 1 dose, Starting on Sun03/15/21 at 0023, Until Sun03/16/21 at 0856 LORazepam (Ativan) tablet 1 mg (COMPLETED) 1 mg, Oral, NOW, 1 dose, On Sun03/15/21 at 1000 0959 ($ Given - Provider: Jocelyne Lyman RN) magnesium citrate solution 300 mL (COMPLETED) 300 mL (1 bottles), Enteral Tube, NOW, 1 dose, On Sun03/15/21 at 0545 0745 ($ Given - Provider: Jocelyne Lyman RN) OLANZapine (ZyPREXA) injection 5 mg (COMPLETED) 5 mg, Intramuscular, ONCE, 1 dose, On Sun03/15/21 at 1115, Monitor for orthostatic hypotension prior to the administration. Reconstitute with 2.1 mL of sterile water to give approximately 5 mg/mL concentration. 1105 ($ Given - Provider: Jocelyne Lyman RN) ondansetron (Zofran) injection 4 mg (COMPLETED) 4 mg, Intravenous, ONCE, 1 dose, On Sun03/15/21 at 0045, Administer over 2 to 5 minutes. 0221 ($ Given - Provider: Ernestina Lucio RN) polyethylene glycol 3350 (Miralax) packet 17 g (COMPLETED) 17 g, Enteral Tube, ONCE, 1 dose, On Sun03/15/21 at 0945, Mix in 8 ounces of water, juice, soda, coffee or tea prior to administration 1108 ($ Given - Provider: Jocelyne Lyman RN) sodium phosphate rectal (Fleet) enema 133 mL (COMPLETED) 133 mL (1 enema), Rectal, ONCE, 1 dose, On e 03/15/21 at 0415 0606 ($ Given - Provider: Dora Solorio, RN) No Frequency Medication Order 03/14/2021 03/15/2021 03/16/2021 iopamidol (Isovue 370) contrast ADS Med (COMPLETED) 1 dose, Starting on Sun03/15/21 at 0329, Until Sun03/15/21 at 0334, Created by cabinet override 0334 ($ Given - Contrast - Provider: Merle Vera, RT(R)) documented in this encounter Care Teams Sewing Supervisor Relationship Specialty Start Date End Date [facility] ([facility]) [address] [place] [address] PCP - General 06/17/18 documented as of this encounter
--- OUTSIDE RECORDS SUMMARY | 2024-10-26 21:09 | XMS_ITS | Encounter Summary ---
Author Organization [facility] Address [address] [place] [address] Care Team Providers Care Motor Power Connector Name Role Phone [facility] ([facility]) Primary Care Provi lesli Reason for Visit * Reason Comments Lesions Facial no hx Encounter Details Date Type Department Care Team (Late st Contact [facility]) Description 06/13/2022 9:30 AM CDT Office Visit [facility] General Dermatology [address] [place] [address] Zainab Espino MD [address] [place] [address] Neoplasm of uncertain behavior of skin (Primary Dx); Other seborrheic dermatitis Social History Tobacco Use Types Packs/Day Years [...] * Patient Instructions* Zainab Espino MD - 06/13/2022 10:47 AM CDT It was a pleasure seeing you in clinic today. We will follow up with you in 1 month. The spot on your left cheek is likely due to trauma. We are also checking for Zoster. We will re-evaluate in 1 month to see if it has healed. If not, then we will consider biopsy at that time. Apply Duoderm on the spot on your left cheek until it falls off. When it falls off, apply new Duoderm patch. Stop Neosporin to the area. Apply only 100% pure petroleum jelly (Vaseline) to help area heal. Duoderm will not stick with Vaseline there. Avoid scratching the spot on left cheek. The scaly areas on your face is called seborrheic dermatitis. Apply Ketoconazole 2% shampoo to affected dry areas on forehead, nose, cheeks, chin once daily. Lather and leave on for 3-5 minutes, then wash off. Apply Ketoconazole 2% cream to affected areas on forehead, between eyebrows, nose, cheeks, chin twice daily documented in this encounter Progress Notes * Sindy Cardoso MD - 06/13/2022 10:25 AM CDT I have seen and examined the patient with the resident and I agree with the findings and plan of care as documented by the resident. Date of Service: 06/13/2022 Here with animal caretaker. 1. Bunny derm -keto shampoo and cream 2. Ulcerated plaque, ?self-inflicted -viral culture -d/c Neosporin -Duoderm Sindy Cardoso MD * Zainab Espino MD - 06/13/2022 10:13 AM CDT Chief Complaint Patient presents with ??? Lesions Facial no hx HPI: Jp Morley a 61 year old male presents for skin lesion. Patient is here with clinical case manager. Concerns: 1. Spot on face Duration: ~6 months Symptoms: started on dry skin, now bleeding , sometimes itchy Pt reports scratching at it Current treatment: Neosporin 2. Dry skin on face Duration: ~1 year Symptoms: dry, flaking Prior treatment: none Personal history of skin cancer: none Family hx of melanoma: pt does not know Past medical history, social history and family history were reviewed. ROS: As per HPI above. Patient denies fever, chills and night sweats. PE: No acute distress. Mood clear/affect appropriate. Alert and oriented. Mucous membranes moist. Sclera anicteric. Visible skin exam was conducted to include the scalp, face, lips/teeth, lids/conjunctiva, ears, neck, right and left hands and forearms and was normal with the following exceptions: - Scaly, yellow plaques on forehead, cheeks, chin, around nose - Linear eroded smooth plaque on left cheek A/P: Jp was seen today for lesions. Diagnoses and all orders for this visit: Neoplasm of uncertain behavior of skin - L cheek x1; photo taken today - Ddx: Likely 2/2 trauma/self-manipulation (pt endorses scratching at area) vs less likely VZV vs rule out BCC - Obtain HSV/VZV PCR - VARICELLA ZOSTER PCR - SURESWAB HSV 1+2 DNA PCR - Recommend Duoderm application to area as barrier protection (samples provded to today) - Stop Neosproin - Vaseline for healing - Re-check in 1 month Other seborrheic dermatitis - Moderate; flaring on face today - Start ketoconazole (Nizoral) 2 % shampoo; Apply to affected dry areas on forehead, nose, cheeks, chin once daily. Lather and leave on for 3-5 minutes, then wash off. 30 days supply - Start ketoconazole (Nizoral) 2 % cream; Apply to affected areas on forehead, between eyebrows, nose, cheeks, chin twice daily. 30 days supply. RTC in 1 month for re-check of L cheek x1 lesion. Sun protection, sunscreen with broad spectrum protection, SPF 30 and above, and self exam discussed. Coding Rationale New or est? New Patient Highest problem complexity: 1 or more chronic illnesses with exacerbation, progression, or side effects of treatment Highest level of risk: Moderate Suggested code: 74539 Patient was seen, examined, and discussed with attending physician, Dr. Cardoso. Zainab Espino MD Dermatology Resident, PGY-4 [employer], Department of Dermatology documented in this encounter Plan of Treatment Upcoming Encounters Date Type Department Care Team (Late st Contact Info) Description 04/21/2025 9:30 AM CDT Office Visit [facility] - Dermatology [address] [place] [phone] Raghavendra Barajas MD [address] [facility] [place] [address] documented as of this encounter Procedures Procedure Name Priority Date/Time Associated Diagnosis Comments SUREAB HSV 1+2 DNA PCR Routine 06/22/2022 8:00 PM CDT Neoplasm of uncertain behavior of skin VARICELLA ZOSTER PCR Routine 06/22/2022 8:00 PM CDT Neoplasm of uncertain behavior of skin documented in this encounter Results * SURESWAB HSV 1+2 DNA PCR (06/22/2022 8:00 PM CDT) Herpes Simplex Virus 1 DNA [facility] Comment: TEST NOT PERFORMED No suitable specimen received. Please review the test requirements at testdirectory.[employer] [place] NO COLLECTION DATE RECEIVED. WE HAVE USED THE DATE THE SPECIMEN WAS RECEIVED BY THIS LABORATORY THE COLLECTION DATE. IF THIS IS INCORRECT, PLEASE CONTACT CLIENT SERVICES. PHONE NUMBER: [phone] Test Performed at: [facility] [address] [place], [place] ??[address] PRABHAKAR HOLLIS MD,PHD,LETHA Microbiology ENTIRE PENIS / Unknown 06/14/2022 5:29 AM CDT Sindy Cardoso MD LAB - MICROBIOLOGY ORDERABLES [facility] [address] [place] [address] * VARICELLA ZOSTER PCR (06/22/2022 8:00 PM CDT) Source SWAB [facility] Comment:Received swab from u nspecified source. Varicella zoster Virus DNA Qual Real Time PCR NOT DETECTED [facility] Comment: REFERENCE RANGE: NOT DETECTED This test was developed and its analytical performance characteristics have been determined by [facility]. It has not been cleared or approved by FDA. This assay has been validated pursuant to the CLIA regulations and is used for clinical purposes. Test Performed at: [facility] [address] [place], [place] ??[phone] PRABHAKAR HOLLIS MD,PHD,LETHA Microbiology TISSUE SPECIMEN FROM SKIN / Unknown 06/14/2022 5:29 AM CDT Sindy Cardoso MD LAB - MICROBIOLOGY ORDERABLES [facility] [address] [place] [address] documented in this encounter Visit Diagnoses Diagnosis Neoplasm of uncertain behavior of skin- Primary Other seborrheic dermatitis documented in this encounter Care Teams Motor Power Connector Relationship Specialty Start Date End Date [facility] ([facility]) [address] [place] [address] PCP - General 06/17/18 documented as of this encounter
--- OUTSIDE RECORDS SUMMARY | 2024-10-26 21:09 | XMS_ITS | Encounter Summary ---
Author Organization [facility] Address [address] [place] [address] Care Team Providers Care Quilting Supervisor Name Role Phone None, Pcp Primary Care Provider Unavailabl e Reason for Visit * Reason Onset Date Comments Hospital Follow-up 11/14/2013 Encounter Details Date Type Department Care Team (Late st Contact Info) Description 11/14/2013 Telephone [facility] Medical [facility] - Pulmonology [id number] [place] [address] [place] [address] [place] [address] [facility] [place] [address] Hospital Follow-up Social History Tobacco Use Types Packs/Day Years Used Date Smoking Tobacco: Every Day Cigarettes Alcohol Use Standard Drinks/Week Comments No 0 (1 standard drink = 0.6 oz pur e alcohol) Sex and Gender Information Value Date Recorded Sex Assigned at Not on file Gender Identity Not on file Sexual Orientation Not on file documented as of this encounter Miscellaneous Notes * Telephone Encounter - Darrel Escalona MD - 11/14/2013 10:48 AM CREDIT OR LOANS OFFICER Talked to IMER Watson about pt after call back received. BiPAP settings recommended are as though delineated in my hospital progress note. IT OR LOANS OFFICER * Telephone Encounter - Devi Santos MA - 11/14/2013 10:24 AM CST Routed to Dr. Escalona. IT OR LOANS OFFICER * Telephone Encounter - Dasha Salmeron MA - 11/14/2013 9:58 AM CST Cut and pasted in correct chart. (Orig.msg from [facility]) Devi from [facility] is calling to request CPAP order with correct settings for pt to be sent to [facility] [place] at Fax number [phone]. She asks for settings since she is not sure if current setting are correct in epic for discharge. [place] [facility] phone is [phone]. (msg from [facility] CATHI) Routed to Dr. Escalona. 11/14/2013 Left voicemail message for Devi manager social services at [facility], to call back. (msg from dr escalona) Called back number and it was to manager social services Devi Garcia at [facility]. Left message on voice mail to call me back with name of patient being called about since no pt name noted in the message left for me. IT OR LOANS OFFICER documented in this encounter Plan of Treatment Upcoming Encounters Date Type Department Care Team (Late st Contact Info) Description 04/21/2025 9:30 AM CDT Office Visit [facility] - Dermatology [address] [facility] [place] [address] Raghavendra Barajas MD [address] [facility] [place] [address] documented as of this encounter Visit Diagnoses Not on filedocumented in this encounter Care Teams Quilting Supervisor Relationship Specialty Start Date End Date None, Pcp [place] [address] PCP - General 11/01/13 documented as of this encounter
--- OUTSIDE RECORDS SUMMARY | 2024-10-26 21:09 | XMS_ITS | Encounter Summary ---
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 prednisone. Can taper as tolerated to off after DC. 7. Lasix prn. 8. DVT/ PUD prophylaxis - as ordered. 9. SS Insulin coverage as needed. 10. Nutritional support: po feedings as tolerated. 11. Continue PT/ OT 12. Continue attempts to ambulate with CP rehab. 13. Will d/c aguero catheter. Prognosis: guarded. Ok from pulmonary standpoint for tx to SNF even today. Discussed with SW. Continue supportive care. R RELATIONS TEACHER * Rani Coats RN - 11/14/2013 6:16 AM CST Shift Summary: Up in chair this morning, On Bi pap overnight, SR. Elevated BP, better after one dose of PRN hydralazine. No distress. R RELATIONS TEACHER * Bk Lemus MD - 11/13/2013 6:54 PM CST Admit Date: 11/01/2013 2:34 PM Hospital Day: 12 New Symptoms Awake and alert. Moved to 3N. Speech is clear. Up in chair. Marie po. Now seems to be agreeable for SNF when explained that BIPAP cant be be arranged in [place] due to [place] medicaid. On 4L O2 per NC. No c/o SOB Data Vitals: 11/13/13 1253 11/13/13 1340 11/13/13 1345 11/13/13 1641 BP: 135/86 147/85 Pulse: 99 87 59 Temp: 97.9 ??F 98 ??F Resp: 20 20 20 20 Weight: SpO2: 94% 95% Intake/Output Summary (Last 24 hours) at 11/13/13 1854 Last data filed at 11/13/13 1807 Gross per 24 hour Intake 300 ml Output 3325 ml Net -3025 ml My review of labs, imaging, notes and other tests is significant for improved labs Component Name 11/13/13 0609 11/12/13 0532 11/11/13 0400 SODIUM 141 142 140 POTASSIUM 4.2 4.0 5.2* CHLORIDE 99 103 105 CO2 37* 33* 32* BUN 21 28* 25* CREATININE 0.25* 0.45* 0.28* GLUCOSE 259* 288* 284* CALCIUM 8.8 8.4* 8.3* Component Name 11/13/13 0609 11/12/13 0423 11/11/13 0400 WBC 11.7* 10.6 7.5 HGB 14.1 11.7* 12.8 HCT 45.0 40.0 42.5 PLTCOUNT 161 126* 157 Exam General appearance:Awake And alert, up in chair. Heart: regular rhythm, normal S1 and S2, without murmurs, Lungs: breath sounds symmetric; occ wheezes Abdomen: soft, obese, non-tender, with normal bowel sounds Extremities: no edema SOCK KNITTER. Alert and oriented x 2. Cranial nerves 2-12 grossly normal. Power tone all 4 extremeties normal Assessment and Plan 1 Tirkr-rpbv-uwtmize respiratory failure with significant hypoxemia and hypercapnia secondary to nonusage of oxygen and noncompliance with his BiPAP. Intubated currently. IV steroids. given S. Pneumoniae isolated in sputum --Continue Zosyn. Atelectasis - left lung . Status post bronchoscopy 11/08/13. Mucous plugging left mainstem bronchus.Cleared. No endobronchial lesions. Left lower lobe aeration has improved. Possible suspicion for Nosocomial pneumonia. On empiric antibiotic. 2. Diabetes, uncontrolled. BS are high due to STEROIDS. On SSI. Home med list obtained . Supplemental insulin per ICU protocol. wILL RESUME ORAL HYOPOGLYCEMICS/ 3. Obstructive sleep apnea. Noncompliant with CPAP with significant hypercapnia. Improving on vent 4. Probable Acute over chronic cor pulmonale/right heart failure with mildly elevated BNP and lowerextremity edema, possible secondary pulmonary hypertension. ECHO showed nl LVEF. 5. Lower extremity edema. Improved with diuresis. 6. History of coronary artery disease and myocardial infarction 7. History of old cerebrovascular accident. 8. Left arm bruising, soft tissue contusion. --Improved now, 9. Deep venous thrombosis prophylaxis. With lovenox and SCD. 10. Morbid Obesity Body mass index is 47.31 kg/(m^2). Poor prognosis. 11/Code status. Did not want intubation on presentation, but changed his mind and now intubated. --Extubated now and agreeable for Rehab. SS making arrangements. 12. Nutrition. Now marie po. Started oral DM meds. DC soon when ok with Pulm--1-2 days R RELATIONS TEACHER * Merle Pierre RN - 11/13/2013 6:31 PM CST Pt A&Ox4, VSS, SR on monitor. Up in chair most of the afternoon, good appetite. Call light in reach, no needs at this time. Merle Pierre RN 11/13/2013 6:32 PM R RELATIONS TEACHER * Ginger Cunningham, PT - 11/13/2013 2:29 PM CST PT Daily Summary Jp Knox: [id number]: 11/13/2013 : Patient's Goal for the Day: To try to walk. Pt sitting up in chair upon arrival. Oriented x 4, but seems a little confused at times, with decreased attention/concentration. Pt needs cues for safety throughout session, and he was quite restlessand easily distracted. He was able to ambulate a short distance, but very unsteady and SOB with activity. Pt was left sitting up in chair with call light in reach. Supine to Sit: Minimal Assistance Sit to Supine: Minimal Assistance Sit to Stand: Minimal Assistance Stand to Sit: Minimal Assistance Distance Ambulated: 5 FEET (x 2 with sitting rest break) Ambulation: Assistive Device: Walker-2 Wheeled;Gait Belt Ambulation: Level of Assistance: Minimum Assistance Ambulation: Gait Deviations: Nathalia - Decreased;Step Length - Decreased Balance Sitting - Dynamic: Good Sitting - Static: Good Standing - Dynamic: Fair;With Both Upper Extremity's Support Standing - Static: Fair +;With Both Upper Extremity's Support Recommendations: Pt will tolerate and benefit from 3 hour/day intense inpatient multidisciplinary therapies to increase independence and functional mobility. If this is the last PT visit, this note serves as the discharge summary. R RELATIONS TEACHER * Bhupendra Banks, OT - 11/13/2013 2:29 PM CST OT michael completed. PLOF: Per pt lived in [facility] with ex . Independent with ADLs. Reports 1 fall in past 6 months. Walked without AD. Pt's goal for therapy: Work with therapy. O: Pt awake, sitting up in chair eating lunch. RN agreeable to session. A&O x4, however, slightly confused t/o session. Pt on 2L of O2. Required cues to not hold breath while moving around. SpO2 88-91 t/o session. Decreased safety and judgement with ADLs. Walked a few steps with RW and min A x3. Required rest breaks. Required cues for RW safety. Pt sitting up in chair at end of session finishing lunch. ASSESSMENT: RUE Assessment: Within Defined Limits (decreased fine motor) LUE Assessment: Within Defined Limits (decreased fine motor) Functional Impairments (based on observation and clinical judgement): Feeding: Complete Beulah (opened packages with extra time) Oral Facial Hygiene: Supervision, Set-Up, Cues Bathing: Moderate Assistance Upper Body Dressing: Minimal Assistance Lower Body Dressing: Maximal Assistance Toileting: Moderate Assistance Cognition: Attention/Concentration - Decreased;Follows one step commands;Judgment - Decreased;Safety Awareness - Decreased Sit to Stand: Minimal Assistance Stand to sit: minimal assistance (cues for safe sitting) Toilet Transfers: Activity Does Not Occur PLAN OF CARE: Refer to Care Plan for short and terminal computer operator goals Impairment of: ADL Function and Transfers/Mobility Due to: Decreased endurance, Decreased UE Strength/coordination, Decreased balance, Impaired safetyawareness, Cognitive impairment, and Aphasia RECOMMENDATIONS: Continue OT. Bhupendra Banks OTR/L If this is the last Occupational Therapy visit, this serves as the discharge summary. R RELATIONS TEACHER * Devi Garcia LCSW - 11/13/2013 1:43 PM CST Social Work: Pt accepted for admission to [facility] ([facility] [phone]/F: [phone]). Contacting Dr. Manzano to confirm Bipap orders so staff at [facility] can order Bipap for pt. 3013 Addendum: Contacted Dr. Manzano's office. They indicate they will arrange for Bipap orders to be faxed directly to [facility]. Provided staff at office contact information including [facility] JAZZMINE Arshad, [facility] [phone] R RELATIONS TEACHER * Kourtney Francis, CATHI - 11/13/2013 11:33 AM CST Pt transferred from 7th floor to 3N. Chart reviewed. IMER Quinonez and I met with pt who was sitting upin the chair and appeared alert and appropriate. We discussed discharge plans and he is agreeable that he would benefit from SNF at discharge and asked that we inquire about [facility] as he has been there in the past. He states that he does not have a bipap machine. SW on case for SNF. R RELATIONS TEACHER * Devi Garcia LCSW - 11/13/2013 10:56 AM CST Fdc Home Referral Reason for Referral: Anticipated level of care / disposition at discharge: *Home vs SNF Referral Source: MD Prior Level of Functioning: Pt has been staying with a friend in [place]. Has had difficulty accessing home O2 and bipap. Equipment At Home: Home O2, bipap (needs a bipap at dc and does not have) Special Needs: Bipap, home O2 Bed Type Requested: Anticipated level of care / disposition at discharge: *Home Referrals Initiated: Pt requesting SNF at co. Pt requests referral to [facility]/ ([phone]/F: [phone]). Family Contacted: (Include contact name/number)ALEX Davis [phone]. Patient and Family Agreeable to Plan? Yes Transportation at DC: Transportation at discharge: Friend vs ambulance Tentative DC Date: Anticipated Discharge Date: (NA @ this time) [facility] Contact and Telephone Number: JAZZMINE Arshad, [facility] [phone] RN Station and Telephone Number: [phone] Face Sheet Information Jp Knox: Admit Date: 11/01/2013 Room Number:03101 SSN :[id number] Sex: male : 1960 Age:52 y.o. Ethnicity: White/ Lang: BRUNEIAN DEnomination: CHR [8] Patient Type: Inpatient Weight:Weight: (unable to weigh, no scale on bed) Height: Height: 162.6 cm (5' 4 ) Marital Status: Legally , Address:[address] [place] [address] (home) [phone] (work) Contact: Extended Emergency Contact Information Primary Emergency Contact: Maggy Crews Address: [address] [place] [address] of [place] [employer] Relation: Ex-Spouse DX: COPD (chronic obstructive pulmonary disease) [[id number]] Insurance: Payor/Plan Subscriber Name Rel Member # Group # MEDICAID - [place] -* JP KNOX [id number] [address] [id number] Attending physician and telephone number:Bk Lemus MD Office Primary Care Physician and telephone number: Pcp None None MAR: MEDICATIONS FOR CURRENT ENCOUNTER: ?? SCHEDULED MEDICATIONS: ?? 0.9% NaCl injection 3 mL, Active, Intracatheter, q8h ?? albuterol (PROVENTIL;VENTOLIN) (5 MG/ML) 0.5% nebulizer solution 2.5 mg, Active, Inhalation, 4X/day ?? amLODIPine (NORVASC) tablet 10 mg, Active, Per NG tube, QDAY ?? aspirin tablet 325 mg, Active, Per NG tube, QDAY ?? budesonide-formoterol (SYMBICORT) 160-4.5 MCG/ACT inhaler 2 Puff, Active, Inhalation, BID ?? enoxaparin (LOVENOX) injection 40 mg, Active, Subcutaneous, 0600 and 1800 ?? famotidine (PEPCID) tablet 20 mg, Active, Per G Tube, BID ?? furosemide (LASIX) injection 40 mg, Active, Intravenous, QDAY ?? guaifenesin ER 12hr (MUCINEX) tablet 1,200 mg, Active, Oral, q12h ?? insulin lispro (humaLOG) injection 3-18 Units, Active, Subcutaneous, q6h ?? ipratropium (ATROVENT) nebulizer solution 0.5 mg, Active, Inhalation, 4X/day ?? methylPREDNISolone sod succ (Solu-MEDROL) injection 40 mg, Active, Intravenous, q12h ?? piperacillin - tazobactam (ZOSYN) IVPB 3.375 g, Active, Intravenous, q6h ?? CONTINUOUS MEDICATIONS: ?? 0.9% NaCl infusion, Active, Intravenous, Continuous ?? propofol (DIPRIVAN) injection, Active, Intravenous, Continuous PRN MEDICATIONS: 0.9% NaCl injection 2-10 mL, Active, Intracatheter, PRN 0.9% NaCl IV Bolus, Active, Intravenous, PRN acetaminophen (TYLENOL) tablet 650 mg, Active, Oral, q6h PRN albuterol (PROVENTIL;VENTOLIN) (5 MG/ML) 0.5% nebulizer solution 2.5 mg, Active, Inhalation, 4X/dayPRN albuterol (PROVENTIL;VENTOLIN) (5 MG/ML) 0.5% nebulizer solution 2.5 mg, Active, Inhalation, PRN hydrALAZINE (APRESOLINE) injection 10 mg, Active, Intravenous, q4h PRN hydrALAZINE (APRESOLINE) injection 10 mg, Active, Intravenous, q4h PRN ipratropium (ATROVENT) nebulizer solution 0.5 mg, Active, Inhalation, 4X/day PRN traZODone (DESYREL) tablet 50 mg, Active, Oral, AT BEDTIME PRN Devi Garcia LCSW R RELATIONS TEACHER * Oren Manzano MD - 11/13/2013 10:26 AM CST Pulmonary Progress Note Admit Date: 11/01/2013 2:34 PM Hospital Day: 12 Symptoms Pt extubated yesterday. On 4L O2 per NC. No c/o SOB. Wants to go home. Data Temp (30hrs) Max:98.3 ??F Vitals: 11/13/13 0400 11/13/13 0808 11/13/13 0813 11/13/13 0847 BP: 151/83 165/98 Pulse: 74 86 75 Temp: 97.5 ??F 98 ??F Resp: 21 20 20 20 Weight: SpO2: 94% 93% Intake/Output Summary (Last 24 hours) at 11/13/13 1026 Last data filed at 11/13/13 1019 Gross per 24 hour Intake 684 ml Output 5475 ml Net -4791 ml Filed Wts: 11/01/13 2100 11/04/13 0025 11/07/13 1100 Weight: 96.3 kg (212 lb 4.9 oz) 125.011 kg (275 lb 9.6 oz) 125.011 kg (275 lb 9.6 oz) Pulmonary Rehab Resting Ambulation Post Activity Heart Rate Pre Heart Rate: 72 (11/06/13 0913) Ambulation Heart Rate: 95 Post Heart Rate: 74 SaO2 Pre SaO2 (%): 94 % Ambulation SaO2: 96 Post SaO2 (%): 97 % O2 Device Resting O2 device: High Flow Nasal Cannula (Oximizer, Vapotherm, Aquinox) Ambulation O2 Device: High Flow Nasal Cannula (Oximizer, Vapotherm, Aquinox) (100% 8l oxy, weaned down to 4L 0xy with Sao2 96-98% Min. CAMPUZANO) Post O2 Device: High Flow Nasal Cannula (Oximizer, Vapotherm, Aquinox) O2 L/M Pre O2 L/M: 8 L/M Ambulation O2 L/M: 4 L/M Post O2 L/M: 4 L/M O2 % (FiO2) Type of Activity: Ambulation Ambulation Distance (ft): 85 feet (One standing then sitting rest 1/2 way. ) Exam General appearance: Comfortable, on ventilator. Vent settings reviewed at bedside and as noted above. Lungs: Diminished air entry but improved at left base. No wheezing or crackles. Heart: regular rhythm, normal S1 and S2, without murmurs, gallops or rubs Abdomen: soft without mass, non-tender, with normal bowel sounds, obese Extremities: Trace to 1+ bilateral lower extremity edema, no clubbing, no cyanosis Neuro: Sedated. Moving all extremities. Skin: No acute rash My review of labs, imaging, notes and other tests is significant for the following: . Component Name 11/13/13 0609 11/12/13 0532 11/11/13 0400 SODIUM 141 142 140 POTASSIUM 4.2 4.0 5.2* CHLORIDE 99 103 105 CO2 37* 33* 32* BUN 21 28* 25* CREATININE 0.25* 0.45* 0.28* GLUCOSE 259* 288* 284* CALCIUM 8.8 8.4* 8.3* . Component Name 11/13/13 0609 11/12/13 0423 11/11/13 0400 WBC 11.7* 10.6 7.5 HGB 14.1 11.7* 12.8 HCT 45.0 40.0 42.5 PLTCOUNT 161 126* 157 Cultures: Reviewed. Sputum 11/08/13 with heavy growth of S. Pneumoniae. Sensitivities noted. XRays: 11/10/13 pcxr: reviewed - improving aeration LULF, LMLF, remains with LLL atel, improving RMLF/ RLLFISIF's, tubes ok. 11/11/13 pcxr: reviewed - tubes ok, remains with LLL atel w/o change, mild congestion and CM. 11/12/13 pcxr: reviewed - improved aeration LLL with some residual left retrocardiac atel, CM and mild PVR, RLLF IF remains. Tubes ok. 11/13/13 pcxr: reviewed - some increase in bibasilar atel , ETT/ NG tubes out, CM w/o change. 2D Echo: 11/03/13 - Left ventricle: - Systolic function was normal. Ejection fraction was estimated in the range of 55 % to 65 %. - There were no regional wall motion abnormalities. - Doppler parameters were consistent with abnormal left ventricular relaxation (grade 1 diastolic dysfunction). - Mitral valve: - There was mild annular calcification. - Left atrium: - The atrium was mildly dilated. LE Venous dopplers: 11/04/13 - no DVT's bilat with incidental finding of an anechoic, non-vascular soft tissue mass within the popliteal fossa of the right and left lower extremities (?Palacios cysts). Impression: Dyspnea Acute on chronic respiratory failure - hypoxemic/ hypercapnic Atelectasis - left lung . Status post bronchoscopy 11/08/13. Mucous plugging left mainstem bronchus.Cleared. No endobronchial lesions. Pneumonia. No significant hyperemia during bronchoscopy. At high risk for nosocomial pneumonia. CHF - mostly Rt sided COPD with exacerbation - improved. Cor Pulmonale - acute on chronic RIKKI CAD - h/o MD and PCI H/O CVA - with dysarthria DM Morbid obesity Recommendations: 1. Continue O2 per NC during the day. Wean as tolerated once O2 sats maintained >= 90%. 2. Continue BiPAP with prior settings of BiPAP / with back up rate of 14 with O2 bled qhs and during any daytime naps. 3. Empiric antibiotics - continue Zosyn alone now given S. Pneumoniae isolated in sputum and sensitivities noted. 4. Bronchodilators - nebs qid with Symbicort inhaler bid. No wheezes on exam today. 5. Will add mucolytic - with Mucinex tabs po bid. 6. Continue Solu-Medrol but decrease to 40 milligram every 12 hours today and wean as clinical course improves. 7. Lasix prn. 8. DVT/ PUD prophylaxis - as ordered. 9. SS Insulin coverage as needed. 10. Nutritional support: to advance po feedings as tolerated. 11. Will ask PT/ OT to see as pt weaker now post ICU stay. Prognosis: guarded. Continue supportive care. R RELATIONS TEACHER * Bk Lemus MD - 11/12/2013 9:52 PM CST Admit Date: 11/01/2013 2:34 PM Hospital Day: 11 New Symptoms On SBT when seen earlier. Awake now off sedation. TF stopped. Data Vitals: 11/12/13 2024 11/12/13 2026 11/12/13 2034 11/12/13 2100 BP: 165/92 Pulse: 93 94 Temp: Resp: 30 28 28 Weight: SpO2: 96% 95% Intake/Output Summary (Last 24 hours) at 11/12/13 2152 Last data filed at 11/12/13 1930 Gross per 24 hour Intake 1464.48 ml Output 4335 ml Net -2870.52 ml My review of labs, imaging, notes and other tests is significant for improved labs Component Name 11/12/13 0532 11/11/13 0400 11/10/13228 SODIUM 142 140 142 POTASSIUM 4.0 5.2* 3.8 CHLORIDE 103 105 102 CO2 33* 32* 34* BUN 28* 25* 22* CREATININE 0.45* 0.28* 0.42* GLUCOSE 288* 284* 336* CALCIUM 8.4* 8.3* 8.4* Component Name 11/12/13 0423 11/11/13 0400 11/10/13228 WBC 10.6 7.5 8.7 HGB 11.7* 12.8 13.0 HCT 40.0 42.5 43.1 PLTCOUNT 126* 157 147* Exam General appearance:Awake on Vent. Heart: regular rhythm, normal S1 and S2, without murmurs, Lungs: breath sounds symmetric; occ wheezes Abdomen: soft, obese, non-tender, with normal bowel sounds Extremities: no edema SOCK KNITTER: Sedated. Moving all extremities. Assessment and Plan 1 Krurm-mowf-kozwtsg respiratory failure with significant hypoxemia and hypercapnia secondary to nonusage of oxygen and noncompliance with his BiPAP. Intubated currently. IV steroids. given S. Pneumoniae isolated in sputum --Continue Zosyn. Atelectasis - left lung . Status post bronchoscopy 11/08/13. Mucous plugging left mainstem bronchus.Cleared. No endobronchial lesions. Left lower lobe aeration has improved. Possible suspicion for Nosocomial pneumonia. On empiric antibiotic. 2. Diabetes, uncontrolled. On SSI. Home med list obtained . Supplemental insulin per ICU protocol. 3. Obstructive sleep apnea. Noncompliant with CPAP with significant hypercapnia. Improving on vent 4. Probable Acute over chronic cor pulmonale/right heart failure with mildly elevated BNP and lowerextremity edema, possible secondary pulmonary hypertension. ECHO showed nl LVEF. 5. Lower extremity edema. Improved with diuresis. 6. History of coronary artery disease and myocardial infarction 7. History of old cerebrovascular accident. 8. Left arm bruising, soft tissue contusion. --Improved now, 9. Deep venous thrombosis prophylaxis. With lovenox and SCD. 10. Morbid Obesity Body mass index is 47.31 kg/(m^2). Poor prognosis. 11/Code status. Did not want intubation on presentation, but changed his mind and now intubated. 12. Nutrition. Started TF, Marie well. R RELATIONS TEACHER * Tuyet Kauffman RN - 11/12/2013 6:49 PM CST Pt with VSS this shift. Extubated following SBT early afternoon. SpO2 92-96% with O2 at 4L per NC. Calm and without C/O. See doc flowsheet for detailed assessments. NAD. R RELATIONS TEACHER * Ginger Cunningham, PT - 11/12/2013 4:05 PM CST PT Daily Summary Jp Knox: [id number]: 11/12/2013 : Patient's Goal for the Day: To sit up. Pt oriented to person and place, somewhat impulsive. Wants to try sitting up in chair, however pt was just recently extubated, therefore EOB only performed. Pt did well moving from supine to sit, satEOB with good sitting balance. Pt moves all extremities well. Vitals remained stable. Will attempt transfer to chair tomorrow if appropriate. Pt was returned to supine at end of treatment, left with call light in reach and rail up. Supine to Sit: Minimal Assistance Sit to Supine: Minimal Assistance Sit to Stand: Activity Does Not Occur (Not attempted- pt just extubated) Balance Sitting - Dynamic: Good Sitting - Static: Good Recommendations: Pt will benefit from inpatient multidisciplinary therapies to increase independence upon discharge from acute care. If this is the last PT visit, this note serves as the discharge summary. R RELATIONS TEACHER * Oren Manzano MD - 11/12/2013 12:28 PM CST Pulmonary Progress Note Admit Date: 11/01/2013 2:34 PM Hospital Day: 11 Symptoms Pt remains intubated on SBT. Pt awake and alert. Denies SOB. Good diuresis yesterday with lasix. Data Temp (30hrs) Max:99.5 ??F Vitals: 11/12/13 0815 11/12/13 0830 11/12/13 1038 11/12/13 1045 BP: 151/82 133/66 Pulse: 48 48 50 58 Temp: Resp: 24 24 24 Weight: SpO2: 97% 98% 92% 92% Intake/Output Summary (Last 24 hours) at 11/12/13 1228 Last data filed at 11/12/13 1137 Gross per 24 hour Intake 3801.08 ml Output 4810 ml Net -1008.92 ml Filed Wts: 11/01/13 2100 11/04/13 0025 11/07/13 1100 Weight: 96.3 kg (212 lb 4.9 oz) 125.011 kg (275 lb 9.6 oz) 125.011 kg (275 lb 9.6 oz) Pulmonary Rehab Resting Ambulation Post Activity Heart Rate Pre Heart Rate: 72 (11/06/13 0913) Ambulation Heart Rate: 95 Post Heart Rate: 74 SaO2 Pre SaO2 (%): 94 % Ambulation SaO2: 96 Post SaO2 (%): 97 % O2 Device Resting O2 device: High Flow Nasal Cannula (Oximizer, Vapotherm, Aquinox) Ambulation O2 Device: High Flow Nasal Cannula (Oximizer, Vapotherm, Aquinox) (100% 8l oxy, weaned down to 4L 0xy with Sao2 96-98% Min. CAMPUZANO) Post O2 Device: High Flow Nasal Cannula (Oximizer, Vapotherm, Aquinox) O2 L/M Pre O2 L/M: 8 L/M Ambulation O2 L/M: 4 L/M Post O2 L/M: 4 L/M O2 % (FiO2) Type of Activity: Ambulation Ambulation Distance (ft): 85 feet (One standing then sitting rest 1/2 way. ) Vent settings: Vitals Pulse: 58 SpO2: 92 % ETCO2 (mmHg): 56 mmHg Ventilation Rate Ventilation Rate Set (bpm): 24 bpm Ventilation Rate Observed (bpm): 25 bpm Insp Time (%): 35 % Insp Time (sec): 0.87 sec Insp Flow (L/Min): 42 l/Min I:E Ratio: 1:2.3 Actual I:E Ratio: 1:1.9 Volumes Tidal Volume Set (mL): 400 ML [place] Body Weight (kg): 59.2 kg Calculated Tidal Volume (mL) /[place] Body Weight (kg) : 6.76 Exhaled Tidal Volume (ml): 427 ml Tidal Volume Spontaneous (mL): 420 ML Minute Ventilation Observed (Lpm): 5.8 Liters/Minute Tubing Compensation (ATC): On Ventilator Pressures Peak Inspiratory Pressure Observed (cm H2O): 31 cm H2O Pressure Support (cm H2O): 8 cm H2O Plateau Pressure (cm H2O): 27 cm H2O Mean Airway Pressure (cm H2O): 11 cm H2O PEEP/CPAP (cm H2O): 5 cm H20 Exam General appearance: Comfortable, on ventilator. Vent settings reviewed at bedside and as noted above. Lungs: Diminished air entry but improved at left base. No wheezing or crackles. Heart: regular rhythm, normal S1 and S2, without murmurs, gallops or rubs Abdomen: soft without mass, non-tender, with normal bowel sounds, obese Extremities: Trace to 1+ bilateral lower extremity edema, no clubbing, no cyanosis Neuro: Sedated. Moving all extremities. Skin: No acute rash My review of labs, imaging, notes and other tests is significant for the following: . Component Name 11/12/13 0532 11/11/13 0400 11/10/13 0229 SODIUM 142 140 142 POTASSIUM 4.0 5.2* 3.8 CHLORIDE 103 105 102 CO2 33* 32* 34* BUN 28* 25* 22* CREATININE 0.45* 0.28* 0.42* GLUCOSE 288* 284* 336* CALCIUM 8.4* 8.3* 8.4* . Component Name 11/12/13 0532 11/11/13 0400 11/04/13 0601 11/01/13 1458 ALBUMIN 2.5* 2.2* 2.9* -- ALKPHOS 59 51 -- 130* ALT 38 28 -- 58 AST 18 36 -- 42* TBIL 0.6 0.7 -- 0.6 DBIL -- -- -- -- TPROT 5.7* 5.6* -- 6.5 . Component Name 11/12/13 0423 11/11/13 0400 11/10/13 0229 WBC 10.6 7.5 8.7 HGB 11.7* 12.8 13.0 HCT 40.0 42.5 43.1 PLTCOUNT 126* 157 147* . Component Name 11/12/13 1152 11/11/13 0331 11/08/13 1216 11/08/13 0721 PHART 7.39 7.46* 7.44 -- [id number] 67.4* 46.9* 73.3* -- PO2ART 104 90 68* -- [id number] 98 97 93 -- BEART 13* 8* 20* -- FIO2 40 -- 60 70 Cultures: Reviewed. Sputum 11/08/13 with heavy growth of S. Pneumoniae. Sensitivities noted. XRays: 11/04/13 pcxr: reviewed - improved with re-expansion of left lung with LLL IF/ atel remains with increase RLLF atel. CM remains with small bilat effusions. Chest x-ray 11/09/12 shows better aeration of the left upper lobe. CT scan shows collapse of the left upper and left lower lobes. No gross endobronchial lesions. Plan of care discussed with critical care medicine. 11/10/13 pcxr: reviewed - improving aeration LULF, LMLF, remains with LLL atel, improving RMLF/ RLLFISIF's, tubes ok. 11/11/13 pcxr: reviewed - tubes ok, remains with LLL atel w/o change, mild congestion and CM. 11/12/13 pcxr: reviewed - improved aeration LLL with some residual left retrocardiac atel, CM and mild PVR, RLLF IF remains. Tubes ok. 2D Echo: 11/03/13 - Left ventricle: - Systolic function was normal. Ejection fraction was estimated in the range of 55 % to 65 %. - There were no regional wall motion abnormalities. - Doppler parameters were consistent with abnormal left ventricular relaxation (grade 1 diastolic dysfunction). - Mitral valve: - There was mild annular calcification. - Left atrium: - The atrium was mildly dilated. LE Venous dopplers: 11/04/13 - no DVT's bilat with incidental finding of an anechoic, non-vascular soft tissue mass within the popliteal fossa of the right and left lower extremities (?Palacios cysts). Impression: Dyspnea Acute on chronic respiratory failure - hypoxemic/ hypercapnic Atelectasis - left lung . Status post bronchoscopy 11/08/13. Mucous plugging left mainstem bronchus.Cleared. No endobronchial lesions. Left lower lobe remains atelectatic but better today. Pneumonia. No significant hyperemia during bronchoscopy. At high risk for nosocomial pneumonia. CHF - mostly Rt sided COPD with exacerbation - improved. Cor Pulmonale - acute on chronic RIKKI CAD - h/o MD and PCI H/O CVA - with dysarthria DM Morbid obesity Recommendations: 1. Discussed with CCP - would consider trial of extubation today. May need BiPAP support but would continue with nocturnal BiPAP use with prior settings qhs after extubation. 2. Empiric antibiotics - continue Zosyn alone now given S. Pneumoniae isolated in sputum and sensitivities noted. 3. Will continue hold on repeat bronch at this time given CXR improving. 4. Bronchodilators - nebs qid with Symbicort inhaler bid. No wheezes on exam today. 5. Continue Solu-Medrol 40 milligram every 8 hours today and wean as clinical course improves and if able to be extubated today. 6. Lasix prn. 7. DVT/ PUD prophylaxis - as ordered. 8. SS Insulin coverage as needed. 9. Nutritional support: tube feeds as ordered. Prognosis: guarded. Discussed with CCP. Continue supportive care. R RELATIONS TEACHER * Tor De Los Santos MD - 11/12/2013 11:27 AM CST Critical Care Medicine Date of service: 11/12/2013 at 11:27 AM Initial admission date: 11/01/2013 Hospital Day: 11 Patient's primary care physician: Pcp None Physician Requesting service: Bk Lemus MD Name: Jp Knox Age: 52 y.o. Gender: male ICU Course 11/10/13: Sedated on diprivan, hemodynamics appear stable on no pressors. Cxr with some evidence of continued left lung collapse, partial. NSC from yesterday. 11/11/13; Awakens easily, denies pain or dyspnea; failed SBT after about 20 minutes this am. Appearsvolume overloaded on exam. 11/12/13: On SBT. Becomes agitated easily but will calm down when spoken to. Good response to lasix rx yesterday Subjective Will nod to questions, mild tachypnea without obvious distress at present. Current Medications 0.9% NaCl injection 3 mL, Active, Intracatheter, q8h albuterol (PROVENTIL;VENTOLIN) (5 MG/ML) 0.5% nebulizer solution 2.5 mg, Active, Inhalation, 4X/day amLODIPine (NORVASC) tablet 10 mg, Active, Per NG tube, QDAY aspirin tablet 325 mg, Active, Per NG tube, QDAY budesonide-formoterol (SYMBICORT) 160-4.5 MCG/ACT inhaler 2 Puff, Active, Inhalation, BID enoxaparin (LOVENOX) injection 40 mg, Active, Subcutaneous, 0600 and 1800 famotidine (PEPCID) tablet 20 mg, Active, Per G Tube, BID furosemide (LASIX) injection 40 mg, Active, Intravenous, QDAY insulin lispro (humaLOG) injection 3-18 Units, Active, Subcutaneous, q6h ipratropium (ATROVENT) nebulizer solution 0.5 mg, Active, Inhalation, 4X/day methylPREDNISolone sod succ (Solu-MEDROL) injection 40 mg, Active, Intravenous, q8h piperacillin - tazobactam (ZOSYN) IVPB 3.375 g, Active, Intravenous, q6h Current IV Medications Continuous IV Medications Medication Status Dose Route Frequency ??? propofol (DIPRIVAN) injection Active 0-50 mcg/kg/min Intravenous Continuous ??? 0.9% NaCl infusion Active Intravenous Continuous Current PRN Medications PRN Medications Medication Status Dose Route Frequency ??? hydrALAZINE (APRESOLINE) injection 10 mg Active 10 mg Intravenous q4h PRN ??? hydrALAZINE (APRESOLINE) injection 10 mg Active 10 mg Intravenous q4h PRN ??? acetaminophen (TYLENOL) tablet 650 mg Active 650 mg Oral q6h PRN ??? traZODone (DESYREL) tablet 50 mg Active 50 mg Oral AT BEDTIME PRN ??? 0.9% NaCl injection 2-10 mL Active 2-10 mL Intracatheter PRN ??? 0.9% NaCl IV Bolus Active 10-50 mL Intravenous PRN ??? albuterol (PROVENTIL;VENTOLIN) (5 MG/ML) 0.5% nebulizer solution 2.5 mg Active 2.5 mg Inhalation PRN ??? albuterol (PROVENTIL;VENTOLIN) (5 MG/ML) 0.5% nebulizer solution 2.5 mg Active 2.5 mg Inhalation 4X/day PRN ??? ipratropium (ATROVENT) nebulizer solution 0.5 mg Active 0.5 mg Inhalation 4X/day PRN Past Medical History Diagnosis Date ??? COPD (chronic obstructive pulmonary disease) ??? Asthma ??? CHF (congestive heart failure) ??? DM (diabetes mellitus) ??? CVA (cerebrovascular accident) ??? MD (myocardial infarction) ??? High cholesterol Review of Systems Unable to obtain ROS as patient is intubated Ventilator Oxygen Therapy SpO2: 92 % Ventilation Rate Ventilation Rate Set (bpm): 24 bpm Ventilation Rate Observed (bpm): 25 bpm Insp Time (%): 35 % Insp Time (sec): 0.87 sec Insp Flow (L/Min): 42 l/Min I:E Ratio: 1:2.3 Volumes Tidal Volume Set (mL): 400 ML [place] Body Weight (kg): 59.2 kg Calculated Tidal Volume (mL) /[place] Body Weight (kg) : 6.76 Exhaled Tidal Volume (ml): 427 ml Tidal Volume Spontaneous (mL): 420 ML Minute Ventilation Observed (Lpm): 5.8 Liters/Minute Tubing Compensation (ATC): On Ventilator Pressures Peak Inspiratory Pressure Observed (cm H2O): 31 cm H2O Plateau Pressure (cm H2O): 27 cm H2O Pressure Support (cm H2O): 8 cm H2O Mean Airway Pressure (cm H2O): 11 cm H2O PEEP/CPAP (cm H2O): 5 cm H20 Vitals Temp (24hrs) Max:99.4 ??F Patient Vitals for the past 4 hrs: BP Temp Pulse Resp SpO2 11/12/13 1045 - - 58 - 92 % 11/12/13 1038 133/66 mmHg - 50 24 92 % 11/12/13 0830 151/82 mmHg - 48 24 98 % 11/12/13 0815 - - 48 24 97 % 11/12/13 0808 155/91 mmHg - - - - 11/12/13 0803 - - 57 - 95 % 11/12/13 0802 - - 55 24 - 11/12/13 0800 155/91 mmHg 97.8 ??F 54 18 96 % 11/12/13 0745 - - 49 23 95 % 11/12/13 0730 157/86 mmHg - 51 22 95 % Physical Exam Constitutional: Mild agitation, will respond appropriately to questions. Neck: No JVD. Respiratory: Clear to ausculation bilaterally. No wheezing. Distant breath sounds. Cardiovascular: Regular rate and rhythm. Normal S1 S2. Gastrointensitinal: Normoactive bowel sounds. Soft. Nontender and nondistended. Musculoskeletal/Extremities: No clubbing, cyanosis or edema. Warm Skin: No rashes Genitourinary: Aguero in place Neurologic:Limited exam, no apparent deficits. Mental status as above. I &Os Intake/Output Summary (Last 24 hours) at 11/12/13 1127 Last data filed at 11/12/13 0935 Gross per 24 hour Intake 3616.08 ml Output 4880 ml Net -1263.92 ml Results Component Name 11/12/13 0532 11/11/13 0400 11/10/13 0229 11/04/13 0601 11/02/13 0318 11/01/13 2135 11/01/13 1458 SODIUM 142 140 142 -- -- -- -- POTASSIUM 4.0 5.2* 3.8 -- -- -- -- CHLORIDE 103 105 102 -- -- -- -- CO2 33* 32* 34* -- -- -- -- BUN 28* 25* 22* -- -- -- -- CREATININE 0.45* 0.28* 0.42* -- -- -- -- GLUCOSE 288* 284* 336* -- -- -- -- CALCIUM 8.4* 8.3* 8.4* -- -- -- -- ALKPHOS 59 51 -- -- -- -- 130* ALBUMIN 2.5* 2.2* -- 2.9* -- -- -- ALT 38 28 -- -- -- -- 58 AST 18 36 -- -- -- -- 42* TBIL 0.6 0.7 -- -- -- -- 0.6 TPROT 5.7* 5.6* -- -- -- -- 6.5 MAGMGDL -- -- 1.8 -- 2.0 1.6 -- CALCIUMION -- -- -- -- -- -- -- PHOS -- -- -- 4.0 -- 5.6* -- Component Name 11/12/13 0423 11/11/13 0400 11/10/139 WBC 10.6 7.5 8.7 HGB 11.7* 12.8 13.0 HCT 40.0 42.5 43.1 PLTCOUNT 126* 157 147* No results found for this basename: LACTICACID:3 in the last 31218 hours Component Name 11/01/13 2135 11/01/13 1458 TROPONIN 0.055* 0.084* CK -- -- Component Name 11/01/13 1459 BNP 199* Component Name 11/11/13 0331 11/08/13 1216 11/08/13 0740 11/08/13 0721 11/07/13 1021 PHART 7.46* 7.44 7.35 -- -- [id number] 46.9* 73.3* 95.4* -- -- PO2ART 90 68* 48* -- -- [id number] 97 93 77* -- -- BEART 8* 20* 21* -- -- FIO2 -- 60 -- 70 70 No results found for this basename: PT:3,INR:3,PTT:3 in the last 71428 hours UA: No results found for this basename: COLORUA,CHARACTERUA,SPECGRAVUA,PHUA,PROTEINUA,BLOODUA,LEUKOC YTEUA,NITRITEUA,GLUCOSEUA,KETONEUA,BILIRUBINUA,UROBILINUA,WBCUA,RBCUA,EPITHUA,MU CUSUA,CASTUA,CRYSTALUA,BACTERIAUA,YEASTUA,TRICHUA in the last 34877 hours EKG: CXR:AP Portable Chest Indication: Respiratory failure shortness of breath Findings: A single portable view of the chest shows cardiomegaly and blunting of the costophrenic angles. Endotracheal tube, NG tube are noted in place. Aorta is tortuous. IMPRESSION Cardiomegaly and small bilateral effusions. Assessment and Plan 1. Respiratory failure: I will continue managing the mechanical ventilator for respiratory failure to prevent imminent deterioration and further organ dysfunction from hypoxemia and hypercarbia. On breathing trial and appears anxious but will calm down at times with verbal support. Good diuresis yesterday with lasix, no apparent left sided collapse on x-ray today. On propofol infusion at this time, will continue. Will continue SBT for one hour, re-assess for possible extubation with exam and ABG at that time. Patient may be very difficult to extubate per usual protocol. Will discuss further with pulmonary. 2. Nutrition: On enteral feeding per protocol. Will use glucerna with elevated blood sugars. 3. DM: Continue blood sugar control via sliding scale insulin per protocol. Critical Care Time: Total critical care time in full attention to this patient is 32 minutes, including time for documentation and reviewing lab results, but not including time for separately documented procedures. Thank you Bk Lemus MD for involving [facility] in the care of your patient. R RELATIONS TEACHER * Agnes Barajas RN - 11/12/2013 7:47 AM CST Cardiac Rehab deferred, patient inappropriate for activity at this time, pt intubated. Will continue to follow patient status and advance as appropriate. Thank you for the referral. R RELATIONS TEACHER * Cordelia Kuo RN - 11/12/2013 4:53 AM CST Shift Summary: SR-SB BBB with frequent pac's. VSS. Follows commands and nods appropriately. Denied pain. Vent: CMVFio2 40%, Peep 5, TV 400, Rate 24. Lungs fine crackles that improve with suction, scant amt of clear sputum. Aguero draining increased amt of clear yellow urine. Propofol for sedation. Will continue to monitor closely. R RELATIONS TEACHER * Oren Manzano MD - 11/11/2013 7:37 PM CST Pulmonary Progress Note Admit Date: 11/01/2013 2:34 PM Hospital Day: 10 Symptoms Pt remains intubated and sedate. On FiO2 of 40% with PEEP down to 5 with O2 sats 95% when seen. Failed SBT earlier today. Data Temp (30hrs) Max:99.8 ??F Vitals: 11/11/13 1600 11/11/13 1700 11/11/13 1741 11/11/13 1800 BP: 139/90 150/85 138/73 Pulse: 54 52 49 48 Temp: 99.2 ??F 99.4 ??F Resp: 24 Weight: SpO2: 95% 96% 97% 95% Intake/Output Summary (Last 24 hours) at 11/11/13 1937 Last data filed at 11/11/13 1800 Gross per 24 hour Intake 4549.6 ml Output 1780 ml Net 2769.6 ml Filed Wts: 11/01/13 2100 11/04/13 0025 11/07/13 1100 Weight: 96.3 kg (212 lb 4.9 oz) 125.011 kg (275 lb 9.6 oz) 125.011 kg (275 lb 9.6 oz) Pulmonary Rehab Resting Ambulation Post Activity Heart Rate Pre Heart Rate: 72 (11/06/13 0913) Ambulation Heart Rate: 95 Post Heart Rate: 74 SaO2 Pre SaO2 (%): 94 % Ambulation SaO2: 96 Post SaO2 (%): 97 % O2 Device Resting O2 device: High Flow Nasal Cannula (Oximizer, Vapotherm, Aquinox) Ambulation O2 Device: High Flow Nasal Cannula (Oximizer, Vapotherm, Aquinox) (100% 8l oxy, weaned down to 4L 0xy with Sao2 96-98% Min. CAMPUZANO) Post O2 Device: High Flow Nasal Cannula (Oximizer, Vapotherm, Aquinox) O2 L/M Pre O2 L/M: 8 L/M Ambulation O2 L/M: 4 L/M Post O2 L/M: 4 L/M O2 % (FiO2) Type of Activity: Ambulation Ambulation Distance (ft): 85 feet (One standing then sitting rest 1/[address] way. ) Vent settings: Vitals Pulse: 48 SpO2: 95 % ETCO2 (mmHg): 39 mmHg Ventilation Rate Ventilation Rate Set (bpm): 24 bpm Ventilation Rate Observed (bpm): 24 bpm Insp Time (%): 30 % Insp Time (sec): 0.75 sec Insp Flow (L/Min): 38 l/Min I:E Ratio: 1:2.3 Volumes Tidal Volume Set (mL): 400 ML [place] Body Weight (kg): 59.2 kg Calculated Tidal Volume (mL) /[place] Body Weight (kg) : 6.76 Exhaled Tidal Volume (ml): 456 ml Tidal Volume Spontaneous (mL): 202 ML Minute Ventilation Observed (Lpm): 6.9 Liters/Minute Tubing Compensation (ATC): On Ventilator Pressures Peak Inspiratory Pressure Observed (cm H2O): 41 cm H2O Pressure Support (cm H2O): 5 cm H2O Plateau Pressure (cm H2O): 27 cm H2O Mean Airway Pressure (cm H2O): 16 cm H2O PEEP/CPAP (cm H2O): 5 cm H20 Exam General appearance: Comfortable, on ventilator. Vent settings reviewed at bedside and as noted above. Lungs: Diminished air entry on the left base. No wheezing or crackles. Heart: regular rhythm, normal S1 and S2, without murmurs, gallops or rubs Abdomen: soft without mass, non-tender, with normal bowel sounds, obese Extremities: 1+ bilateral lower extremity edema, no clubbing, no cyanosis Neuro: Sedated. Moving all extremities. Skin: No acute rash My review of labs, imaging, notes and other tests is significant for the following: . Component Name 11/11/13 0400 11/10/1322811/09/13 0429 SODIUM 140 142 141 POTASSIUM 5.2* 3.8 3.8 CHLORIDE 105 102 99 CO2 32* 34* 34* BUN 25* 22* 22* CREATININE 0.28* 0.42* 0.41* GLUCOSE 284* 336* 195* CALCIUM 8.3* 8.4* 8.3* . Component Name 11/11/13 0400 11/04/13 0601 11/01/13 1458 ALBUMIN 2.2* 2.9* 3.1* ALKPHOS 51 -- 130* ALT 28 -- 58 AST 36 -- 42* TBIL 0.7 -- 0.6 DBIL -- -- -- TPROT 5.6* -- 6.5 . Component Name 11/11/13 0400 11/10/1322811/09/13 0349 WBC 7.5 8.7 10.5 HGB 12.8 13.0 13.4 HCT 42.5 43.1 44.4 PLTCOUNT 157 147* 157 . Component Name 11/11/13 0331 11/08/13 1216 11/08/13 0740 11/08/13 0721 11/07/13 1021 PHART 7.46* 7.44 7.35 -- -- [id number] 46.9* 73.3* 95.4* -- -- PO2ART 90 68* 48* -- -- [id number] 97 93 77* -- -- BEART 8* 20* 21* -- -- FIO2 -- 60 -- 70 70 Cultures: Reviewed. Sputum 11/08/13 with heavy growth of S. Pneumoniae. Sensitivities noted. XRays: 11/04/13 pcxr: reviewed - improved with re-expansion of left lung with LLL IF/ atel remains with increase RLLF atel. CM remains with small bilat effusions. Chest x-ray 11/09/12 shows better aeration of the left upper lobe. CT scan shows collapse of the left upper and left lower lobes. No gross endobronchial lesions. Plan of care discussed with critical care medicine. 11/10/13 pcxr: reviewed - improving aeration LULF, LMLF, remains with LLL atel, improving RMLF/ RLLFISIF's, tubes ok. 11/11/13 pcxr: reviewed - tubes ok, remains with LLL atel w/o change, mild congestion and CM. 2D Echo: 11/03/13 - Left ventricle: - Systolic function was normal. Ejection fraction was estimated in the range of 55 % to 65 %. - There were no regional wall motion abnormalities. - Doppler parameters were consistent with abnormal left ventricular relaxation (grade 1 diastolic dysfunction). - Mitral valve: - There was mild annular calcification. - Left atrium: - The atrium was mildly dilated. LE Venous dopplers: 11/04/13 - no DVT's bilat with incidental finding of an anechoic, non-vascular soft tissue mass within the popliteal fossa of the right and left lower extremities (?Palacios cysts). Impression: Dyspnea Acute on chronic respiratory failure - hypoxemic/ hypercapnic Atelectasis - left lung . Status post bronchoscopy 11/08/13. Mucous plugging left mainstem bronchus.Cleared. No endobronchial lesions. Left lower lobe remains atelectatic. Pneumonia. No significant hyperemia during bronchoscopy. At high risk for nosocomial pneumonia. CHF - mostly Rt sided COPD with exacerbation - improved. Cor Pulmonale - acute on chronic RIKKI CAD - h/o MD and PCI H/O CVA - with dysarthria DM Morbid obesity Recommendations: 1. Continue mechanical ventilation. Volume control. Tidal volume 400cc. Respiratory 24 per minute. Positive end-expiratory pressure 5. FiO2 40%. Keep saturation between 89 to 93% Sedation as needed. Follow ABG's. Resume attempts at SBT tomorrow. 2. Empiric antibiotics - continue Zosyn alone now given S. Pneumoniae isolated in sputum and sensitivities noted. 3. Will hold on repeat bronch at this time. 4. Bronchodilators - nebs qid with Symbicort inhaler bid. No wheezes on exam today. 5. Continue Solu-Medrol 40 milligram every 8 hours and wean as clinical course improves. 6. Agree with Lasix ordered. 7. DVT/ PUD prophylaxis - as ordered. 8. SS Insulin coverage as needed. 9. Nutritional support: instructed nurse to resume tube feeds. Prognosis: very guarded. Discussed with nursing staff. Continue supportive care. R RELATIONS TEACHER * Uyen Arreguin RN - 11/11/2013 6:05 PM CST Shift summary. Pt resting in bed throughout shift. On sedation but still arousable and following commands and nodding appropriately for the most part. SBT this afternoon for 20 minutes. Tolerating TF. SB/SR on the monitor. Continue to monitor. R RELATIONS TEACHER * Tor De Los Santos MD - 11/11/2013 4:46 PM CST Critical Care Medicine Date of service: 11/11/2013 at 4:46 PM Initial admission date: 11/01/2013 Hospital Day: 10 Patient's primary care physician: Pcp None Physician Requesting service: Bk Lemus MD Name: Jp Knox Age: 52 y.o. Gender: male ICU Course 11/10/13: Sedated on diprivan, hemodynamics appear stable on no pressors. Cxr with some evidence of continued left lung collapse, partial. NSC from yesterday. 11/11/13; Awakens easily, denies pain or dyspnea; failed SBT after about 20 minutes this am. Appearsvolume overloaded on exam. Subjective Appears comfortable on present vent settings. Current Medications 0.9% NaCl injection 3 mL, Active, Intracatheter, q8h albuterol (PROVENTIL;VENTOLIN) (5 MG/ML) 0.5% nebulizer solution 2.5 mg, Active, Inhalation, 4X/day amLODIPine (NORVASC) tablet 10 mg, Active, Per NG tube, QDAY aspirin tablet 325 mg, Active, Per NG tube, QDAY budesonide-formoterol (SYMBICORT) 160-4.5 MCG/ACT inhaler 2 Puff, Active, Inhalation, BID enoxaparin (LOVENOX) injection 40 mg, Active, Subcutaneous, 0600 and 1800 famotidine (PEPCID) tablet 20 mg, Active, Per G Tube, BID insulin lispro (humaLOG) injection 3-18 Units, Active, Subcutaneous, q6h ipratropium (ATROVENT) nebulizer solution 0.5 mg, Active, Inhalation, 4X/day methylPREDNISolone sod succ (Solu-MEDROL) injection 40 mg, Active, Intravenous, q8h piperacillin - tazobactam (ZOSYN) IVPB 3.375 g, Active, Intravenous, q6h vancomycin (VANCOCIN) 1,500 mg in NaCl 0.9 % IVPB, Completed, Intravenous, q12h Current IV Medications Continuous IV Medications Medication Status Dose Route Frequency ??? propofol (DIPRIVAN) injection Active 0-50 mcg/kg/min Intravenous Continuous ??? 0.9% NaCl infusion Active Intravenous Continuous Current PRN Medications PRN Medications Medication Status Dose Route Frequency ??? hydrALAZINE (APRESOLINE) injection 10 mg Active 10 mg Intravenous q4h PRN ??? hydrALAZINE (APRESOLINE) injection 10 mg Active 10 mg Intravenous q4h PRN ??? acetaminophen (TYLENOL) tablet 650 mg Active 650 mg Oral q6h PRN ??? traZODone (DESYREL) tablet 50 mg Active 50 mg Oral AT BEDTIME PRN ??? 0.9% NaCl injection 2-10 mL Active 2-10 mL Intracatheter PRN ??? 0.9% NaCl IV Bolus Active 10-50 mL Intravenous PRN ??? albuterol (PROVENTIL;VENTOLIN) (5 MG/ML) 0.5% nebulizer solution 2.5 mg Active 2.5 mg Inhalation PRN ??? albuterol (PROVENTIL;VENTOLIN) (5 MG/ML) 0.5% nebulizer solution 2.5 mg Active 2.5 mg Inhalation 4X/day PRN ??? ipratropium (ATROVENT) nebulizer solution 0.5 mg Active 0.5 mg Inhalation 4X/day PRN Past Medical History Diagnosis Date ??? COPD (chronic obstructive pulmonary disease) ??? Asthma ??? CHF (congestive heart failure) ??? DM (diabetes mellitus) ??? CVA (cerebrovascular accident) ??? MD (myocardial infarction) ??? High cholesterol Review of Systems Unable to obtain ROS as patient is intubated Ventilator Oxygen Therapy SpO2: 95 % Ventilation Rate Ventilation Rate Set (bpm): 24 bpm Ventilation Rate Observed (bpm): 24 bpm Insp Time (%): 30 % Insp Time (sec): 0.75 sec Insp Flow (L/Min): 38 l/Min I:E Ratio: 1:2.3 Volumes Tidal Volume Set (mL): 400 ML [place] Body Weight (kg): 59.2 kg Calculated Tidal Volume (mL) /[place] Body Weight (kg) : 6.76 Exhaled Tidal Volume (ml): 397 ml Tidal Volume Spontaneous (mL): 202 ML Minute Ventilation Observed (Lpm): 9.6 Liters/Minute Tubing Compensation (ATC): On Ventilator Pressures Peak Inspiratory Pressure Observed (cm H2O): 28 cm H2O Plateau Pressure (cm H2O): 27 cm H2O Pressure Support (cm H2O): 5 cm H2O Mean Airway Pressure (cm H2O): 16 cm H2O PEEP/CPAP (cm H2O): 5 cm H20 Vitals Temp (24hrs) Max:99.8 ??F Patient Vitals for the past 4 hrs: BP Temp Pulse Resp SpO2 11/11/13 1539 - - 64 - 95 % 11/11/13 1500 146/73 mmHg - 77 24 95 % 11/11/13 1400 135/80 mmHg 99 ??F 51 24 96 % 11/11/13 1345 - - 54 23 97 % 11/11/13 1330 - - 52 24 97 % 11/11/13 1315 - - 54 24 95 % 11/11/13 1314 - - 52 - 96 % 11/11/13 1313 - - 54 24 - 11/11/13 1300 140/77 mmHg - 59 21 95 % Physical Exam Constitutional: NAD, sedated on ventilator. Neck: No JVD. Respiratory: Clear to ausculation bilaterally. No wheezing. Cardiovascular: Regular rate and rhythm. Normal S1 S2. Gastrointensitinal: Normoactive bowel sounds. Soft. Nontender and nondistended. Musculoskeletal/Extremities: No clubbing, cyanosis or edema. Warm Skin: No rashes Genitourinary: Aguero in place Neurologic:Limited exam, no apparent deficits. I &Os Intake/Output Summary (Last 24 hours) at 11/11/13 1646 Last data filed at 11/11/13 1400 Gross per 24 hour Intake 4361 ml Output 1160 ml Net 3201 ml Results Component Name 11/11/13 0400 11/10/13 0229 11/09/13 0429 11/04/13 0601 11/02/13 0318 11/01/13 2135 11/01/13 1458 SODIUM 140 142 141 -- -- -- -- POTASSIUM 5.2* 3.8 3.8 -- -- -- -- CHLORIDE 105 102 99 -- -- -- -- CO2 32* 34* 34* -- -- -- -- BUN 25* 22* 22* -- -- -- -- CREATININE 0.28* 0.42* 0.41* -- -- -- -- GLUCOSE 284* 336* 195* -- -- -- -- CALCIUM 8.3* 8.4* 8.3* -- -- -- -- ALKPHOS 51 -- -- -- -- -- 130* ALBUMIN 2.2* -- -- 2.9* -- -- 3.1* ALT 28 -- -- -- -- -- 58 AST 36 -- -- -- -- -- 42* TBIL 0.7 -- -- -- -- -- 0.6 TPROT 5.6* -- -- -- -- -- 6.5 MAGMGDL -- 1.8 -- -- 2.0 1.6 -- CALCIUMION -- -- -- -- -- -- -- PHOS -- -- -- 4.0 -- 5.6* -- Component Name 11/11/13 04011/10/1322811/09/13 0349 WBC 7.5 8.7 10.5 HGB 12.8 13.0 13.4 HCT 42.5 43.1 44.4 PLTCOUNT 157 147* 157 No results found for this basename: LACTICACID:3 in the last 98621 hours Component Name 11/01/13 21311/01/13 1458 TROPONIN 0.055* 0.084* CK -- -- Component Name 11/01/13 1459 BNP 199* Component Name 11/11/13 0331 11/08/13 1216 11/08/13 0740 11/08/13 0721 11/07/13 1021 PHART 7.46* 7.44 7.35 -- -- [id number] 46.9* 73.3* 95.4* -- -- PO2ART 90 68* 48* -- -- [id number] 97 93 77* -- -- BEART 8* 20* 21* -- -- FIO2 -- 60 -- 70 70 No results found for this basename: PT:3,INR:3,PTT:3 in the last 98372 hours UA: No results found for this basename: COLORUA,CHARACTERUA,SPECGRAVUA,PHUA,PROTEINUA,BLOODUA,LEUKOC YTEUA,NITRITEUA,GLUCOSEUA,KETONEUA,BILIRUBINUA,UROBILINUA,WBCUA,RBCUA,EPITHUA,MU CUSUA,CASTUA,CRYSTALUA,BACTERIAUA,YEASTUA,TRICHUA in the last 32112 hours EKG: CXR: AP Portable Chest Indication: Shortness of breath Findings: A single portable view of the chest shows cardiomegaly and congestion. There is blunting of left costophrenic angle. Peripheral right lower lobe infiltrate is unchanged. The endotracheal tube, NG tube are in place unchanged. IMPRESSION Cardiomegaly, congestion, basilar infiltrates. No change. Assessment and Plan 1. Respiratory failure: I will continue managing the mechanical ventilator for respiratory failure to prevent imminent deterioration and further organ dysfunction from hypoxemia and hypercarbia. Failed breathing trial today, myabe partially secondary to right heart failure with volume overload. Will start daily lasix,continue bronchodilators and steroid rx as well as empiric antibiotic coverage. 2. Nutrition: On enteral feeding per protocol. Will use glucerna with elevated blood sugars. 3. DM: Continue blood sugar control via sliding scale insulin per protocol. Critical Care Time: Total critical care time in full attention to this patient is 32 minutes, including time for documentation and reviewing lab results, but not including time for separately documented procedures. Thank you Bk Lemus MD for involving [facility] in the care of your patient. R RELATIONS TEACHER * Beatriz Rand RCP - 11/11/2013 12:01 PM CST Pt. Has a SBT trial today at 1140. Just last about 20 min. Tachypniec, RSBI 143. So back on full support on ventilator. R RELATIONS TEACHER * Pamela Phillips RN - 11/11/2013 6:35 AM CST Cardiac Rehab deferred, patient inappropriate for activity at this time, pt remains intubated. Willcontinue to follow patient status and advance as appropriate. Thank you for the referral. R RELATIONS TEACHER * Laura Colon RN - 11/11/2013 6:29 AM CST Tolerating tube feedings well. Remains on ventilator. Monitor Technician to command at times, any stimulation causes him to become restless and agitated; but he can be calmed. Will try to wean propofol. aguero patent. R RELATIONS TEACHER * Bk Lemus MD - 11/10/2013 9:52 PM CST Admit Date: 11/01/2013 2:34 PM Hospital Day: 9 New Symptoms Pt remains intubated and sedate. Unresponsive when seen. Data Vitals: 11/10/13 2005 11/10/13 2030 11/10/13203011/10/132099 BP: 141/71 Pulse: 75 2 65 Temp: 98.4 ??F Resp: 22 24 Weight: SpO2: 95% 96% Intake/Output Summary (Last 24 hours) at 11/10/132151 Last data filed at 11/10/132006 Gross per 24 hour Intake 4649.6 ml Output 1351 ml Net 3298.6 ml My review of labs, imaging, notes and other tests is significant for improved labs Component Name 0122811/09/139 11/08/13 0348 SODIUM 142 141 142 POTASSIUM 3.8 3.8 3.9 CHLORIDE 102 99 94* CO2 34* 34* >45* BUN 22* 22* 26* CREATININE 0.42* 0.41* 0.35* GLUCOSE 336* 195* 61* CALCIUM 8.4* 8.3* 9.0 Component Name 11/10/1322811/09/1334811/08/13347 WBC 8.7 10.5 10.6 HGB 13.0 13.4 13.3 HCT 43.1 44.4 45.9 PLTCOUNT 147* 157 131* Exam General appearance:Intubated, unresponsive on Vent. Heart: regular rhythm, normal S1 and S2, without murmurs, Lungs: breath sounds symmetric; occ wheezes Abdomen: soft, obese, non-tender, with normal bowel sounds Extremities: no edema SOCK KNITTER: Sedated. Moving all extremities. Assessment and Plan 1 [id number] respiratory failure with significant hypoxemia and hypercapnia secondary to nonusage of oxygen and noncompliance with his BiPAP. Intubated currently. IV steroids. Atelectasis - left lung . Status post bronchoscopy 11/08/13. Mucous plugging left mainstem bronchus.Cleared. No endobronchial lesions. Left lower lobe remains atelectatic Possible suspicion for Nosocomial pneumonia. On empiric antibiotic. 2. Diabetes, uncontrolled. On SSI. Home med list obtained . Supplemental insulin per ICU protocol. 3. Obstructive sleep apnea. Noncompliant with CPAP with significant hypercapnia. Improving on vent 4. Probable Acute over chronic cor pulmonale/right heart failure with mildly elevated BNP and lowerextremity edema, possible secondary pulmonary hypertension. ECHO showed nl LVEF. 5. Lower extremity edema. Improved with diuresis. 6. History of coronary artery disease and myocardial infarction 7. History of old cerebrovascular accident. 8. Left arm bruising, soft tissue contusion. 9. Deep venous thrombosis prophylaxis. With BID lovenox 10. Morbid Obesity Body mass index is 47.31 kg/(m^2). Poor prognosis. 11/Code status. Did not want intubation on presentation, but changed his mind and now intubated. 12. Nutrition. Started TF, Marie well. R RELATIONS TEACHER * Israel French RN - 11/10/2013 6:33 PM CST Remains on vent with propofol for sedation. glucerna tube feeding. R RELATIONS TEACHER * Dewey Hendrickson, PT - 11/10/2013 2:52 PM CST Pt transferred to ICU 11/08/13 from . Will discontinue PT at this time. Please re order when appropriate. R RELATIONS TEACHER * Tor De Los Santos MD - 11/10/2013 12:18 PM CST Critical Care Medicine Date of service: 11/10/2013 at 12:18 PM Initial admission date: 11/01/2013 Hospital Day: 9 Patient's primary care physician: Pcp None Physician Requesting service: Bk Lemus MD Name: Jp Knox Age: 52 y.o. Gender: male ICU Course 11/10/13: Sedated on diprivan, hemodynamics appear stable on no pressors. Cxr with some evidence of continued left lung collapse, partial. NSC from yesterday. Subjective Appears comfortable on present vent settings. Current Medications 0.9% NaCl injection 3 mL, Active, Intracatheter, q8h albuterol (PROVENTIL;VENTOLIN) (5 MG/ML) 0.5% nebulizer solution 2.5 mg, Active, Inhalation, 4X/day amLODIPine (NORVASC) tablet 10 mg, Active, Per NG tube, QDAY aspirin tablet 325 mg, Active, Per NG tube, QDAY budesonide-formoterol (SYMBICORT) 160-4.5 MCG/ACT inhaler 2 Puff, Active, Inhalation, BID enoxaparin (LOVENOX) injection 40 mg, Active, Subcutaneous, 0600 and 1800 famotidine (PEPCID) tablet 20 mg, Active, Per G Tube, BID insulin lispro (humaLOG) injection 3-18 Units, Active, Subcutaneous, q6h ipratropium (ATROVENT) nebulizer solution 0.5 mg, Active, Inhalation, 4X/day levofloxacin (LEVAQUIN) IVPB 750 mg, Active, Intravenous, q24h methylPREDNISolone sod succ (Solu-MEDROL) injection 40 mg, Active, Intravenous, q8h piperacillin - tazobactam (ZOSYN) IVPB 3.375 g, Active, Intravenous, q6h vancomycin (VANCOCIN) 1,500 mg in NaCl 0.9 % IVPB, Active, Intravenous, q12h Current IV Medications Continuous IV Medications Medication Status Dose Route Frequency ??? propofol (DIPRIVAN) injection Active 0-50 mcg/kg/min Intravenous Continuous ??? 0.9% NaCl infusion Active Intravenous Continuous Current PRN Medications PRN Medications Medication Status Dose Route Frequency ??? hydrALAZINE (APRESOLINE) injection 10 mg Active 10 mg Intravenous q4h PRN ??? hydrALAZINE (APRESOLINE) injection 10 mg Active 10 mg Intravenous q4h PRN ??? acetaminophen (TYLENOL) tablet 650 mg Active 650 mg Oral q6h PRN ??? traZODone (DESYREL) tablet 50 mg Active 50 mg Oral AT BEDTIME PRN ??? 0.9% NaCl injection 2-10 mL Active 2-10 mL Intracatheter PRN ??? 0.9% NaCl IV Bolus Active 10-50 mL Intravenous PRN ??? albuterol (PROVENTIL;VENTOLIN) (5 MG/ML) 0.5% nebulizer solution 2.5 mg Active 2.5 mg Inhalation PRN ??? albuterol (PROVENTIL;VENTOLIN) (5 MG/ML) 0.5% nebulizer solution 2.5 mg Active 2.5 mg Inhalation 4X/day PRN ??? ipratropium (ATROVENT) nebulizer solution 0.5 mg Active 0.5 mg Inhalation 4X/day PRN Past Medical History Diagnosis Date ??? COPD (chronic obstructive pulmonary disease) ??? Asthma ??? CHF (congestive heart failure) ??? DM (diabetes mellitus) ??? CVA (cerebrovascular accident) ??? MD (myocardial infarction) ??? High cholesterol Review of Systems Unable to obtain ROS as patient is intubated Ventilator Oxygen Therapy SpO2: 96 % Ventilation Rate Ventilation Rate Set (bpm): 24 bpm Ventilation Rate Observed (bpm): 24 bpm Insp Time (%): 30 % Insp Time (sec): 0.75 sec Insp Flow (L/Min): 38 l/Min I:E Ratio: 1:2.3 Volumes Tidal Volume Set (mL): 400 ML [place] Body Weight (kg): 59.2 kg Calculated Tidal Volume (mL) /[place] Body Weight (kg) : 6.76 Exhaled Tidal Volume (ml): 400 ml Minute Ventilation Observed (Lpm): 9.8 Liters/Minute Tubing Compensation (ATC): On Ventilator Pressures Peak Inspiratory Pressure Observed (cm H2O): 31 cm H2O Mean Airway Pressure (cm H2O): 16 cm H2O PEEP/CPAP (cm H2O): 10 cm H20 Vitals Temp (24hrs) Max:99 ??F Patient Vitals in the past 4 hrs: 11/10/13 1200, BP:150/66 mmHg, Temp:99 ??F, Pulse:45 , Resp:24 , SpO2:96 % 11/10/13 1145, Pulse:47 , Resp:24 , SpO2:95 % 11/10/13 1130, Pulse:47 , Resp:24 , SpO2:95 % 11/10/13 1115, Pulse:47 , Resp:24 , SpO2:96 % 11/10/13 1100, BP:146/77 mmHg, Pulse:48 , Resp:24 , SpO2:96 % 11/10/13 1045, Pulse:48 , Resp:24 , SpO2:96 % 11/10/13 1030, Pulse:46 , Resp:24 , SpO2:96 % 11/10/13 1015, Pulse:48 , Resp:24 , SpO2:96 % 11/10/13 1000, BP:151/72 mmHg, Pulse:50 , Resp:24 , SpO2:96 % 11/10/13 0945, Pulse:53 , Resp:24 , SpO2:96 % 11/10/13 0930, Pulse:56 , Resp:24 , SpO2:94 % 11/10/13 0915, Pulse:55 , Resp:24 , SpO2:94 % 11/10/13 0900, BP:147/72 mmHg, Pulse:49 , Resp:24 , SpO2:95 % 11/10/13 0847, Resp:24 11/10/13 0845, Pulse:48 , Resp:23 , SpO2:96 % 11/10/13 0830, Pulse:48 , Resp:24 , SpO2:96 % Physical Exam Constitutional: NAD, sedated on ventilator. Neck: No JVD. Respiratory: Clear to ausculation bilaterally. No wheezing. Cardiovascular: Regular rate and rhythm. Normal S1 S2. Gastrointensitinal: Normoactive bowel sounds. Soft. Nontender and nondistended. Musculoskeletal/Extremities: No clubbing, cyanosis or edema. Warm Skin: No rashes Genitourinary: Aguero in place Neurologic:Limited exam, no apparent deficits. I &Os Intake/Output Summary (Last 24 hours) at 11/10/13 1218 Last data filed at 11/10/13 0800 Gross per 24 hour Intake: 5050.3 ml Output: 1236 ml Net : 3814.3 ml Results Component Name 11/10/13 0229 11/09/13 0429 11/08/13 0348 11/04/13 0601 11/02/13 0318 11/01/13 2135 11/01/13 1458 SODIUM 142 141 142 -- -- -- -- POTASSIUM 3.8 3.8 3.9 -- -- -- -- CHLORIDE 102 99 94* -- -- -- -- CO2 34* 34* >45* -- -- -- -- BUN 22* 22* 26* -- -- -- -- CREATININE 0.42* 0.41* 0.35* -- -- -- -- GLUCOSE 336* 195* 61* -- -- -- -- CALCIUM 8.4* 8.3* 9.0 -- -- -- -- ALKPHOS -- -- -- -- -- -- 130* ALBUMIN -- -- -- 2.9* -- -- 3.1* ALT -- -- -- -- -- -- 58 AST -- -- -- -- -- -- 42* TBIL -- -- -- -- -- -- 0.6 TPROT -- -- -- -- -- -- 6.5 MAGMGDL 1.8 -- -- -- 2.0 1.6 -- CALCIUMION -- -- -- -- -- -- -- PHOS -- -- -- 4.0 -- 5.6* -- Component Name 11/10/13 0229 11/09/13 0349 11/08/13 0348 WBC 8.7 10.5 10.6 HGB 13.0 13.4 13.3 HCT 43.1 44.4 45.9 PLTCOUNT 147* 157 131* No results found for this basename: LACTICACID:3 in the last 05319 hours Component Name 11/01/13 2135 11/01/13 1458 TROPONIN 0.055* 0.084* CK -- -- Component Name 11/01/13 1459 BNP 199* Component Name 11/08/13 1216 11/08/13 0740 11/08/13 0721 11/07/13 1021 PHART 7.44 7.35 7.43 -- YIK0PEG 73.3* 95.4* 79.2* -- PO2ART 68* 48* 40* -- L6RWLINV 93 77* 72* -- BEART 20* 21* 23* -- FIO2 60 -- 70 70 No results found for this basename: PT:3,INR:3,PTT:3 in the last 09124 hours UA: No results found for this basename: COLORUA,CHARACTERUA,SPECGRAVUA,PHUA,PROTEINUA,BLOODUA,LEUKOC YTEUA,NITRITEUA,GLUCOSEUA,KETONEUA,BILIRUBINUA,UROBILINUA,WBCUA,RBCUA,EPITHUA,MU CUSUA,CASTUA,CRYSTALUA,BACTERIAUA,YEASTUA,TRICHUA in the last 05477 hours EKG: CXR: Ett ok, partial collapse of left lung, similar to yesterday's film. Assessment and Plan 1. Respiratory failure: I will continue managing the mechanical ventilator for respiratory failure to prevent imminent deterioration and further organ dysfunction from hypoxemia and hypercarbia. Willnot wean aggressively today, will continue full support at this time. Repeat cxr in am, if stable, will start SBT to assess for possible extubation. Continue bronchodilators and steroid rx as well asempiric antibiotic coverage. Probable partial lung collapse, will continue pulmonary toilet, recheck cxr in am to see if further intervention needed. 2. Nutrition: Will start enteral feeding per protocol. Will use glucerna with elevated blood sugars. 3. DM: Continue blood sugar control via sliding scale insulin per protocol. Critical Care Time: Total critical care time in full attention to this patient is 32 minutes, including time for documentation and reviewing lab results, but not including time for separately documented procedures. Thank you Bk Lemus MD for involving [facility] in the care of your patient. R RELATIONS TEACHER * Alexsandra Felton, RD/LD - 11/10/2013 12:11 PM CST Problem: Nutrition Care Process Goal: Nutrition Care Process Nutrition Re-Assessment Comments: Consult per tube feeding protocol. Pt intubated / sedated. Propofol infusing at 35 ml/hr which contributes approximately 990 KCAL. Tolerating enteral feeds at 55 ml/hr. Tube feedings plus calories from Propofol--2970 KCAL--exceeding est calorie needs. Acute medical issues and hyperglycemia noted. Assessment: Med/Surg History and Clinical Diagnoses: Respiratory failure, COPD, DM, Hx: CHF, CVA, MD, high cholesterol Current diet order: NPO with Jevity 1.5 at 55 ml/hr for 1980 KCAL, 1003 ml water, and 84 gms protein / flushes per MD Nutrition recommendation: alter/change nutrition order (adjust TF rate) P.O.Intake for the past 48 hrs:No Data Recorded GI Concerns: None Chewing/Swallowing: None Pain affecting intake: No Admission weight: Weight: 212 lb 4.9 oz (96.3 kg) (11/01/13 2100) Filed Wts: 11/01/13 2100 11/04/13 0025 11/07/13 1100 Weight: 212 lb 4.9 oz (96.3 kg) 275 lb 9.6 oz (125.011 kg) 275 lb 9.6 oz (125.011 kg) WT Comments: current not available Laboratory values reviewed. Component Name 11/10/13228 SODIUM 142 POTASSIUM 3.8 CHLORIDE 102 CO2 34* BUN 22* CREATININE 0.42* GLUCOSE 336* CALCIUM 8.4* Component Name 11/10/1322811/09/13 0429 11/08/13 0348 GLUCOSE 336* 195* 61* Medications noted--Solu-medrol, SSI, Propofol, Lasix, Insulin Skin: Exceptions to WDL per nursing assess Estimated Energy Needs: KCAL: 2100 ([facility]) Protein (g): 118 (2 gms/kg IBW) Fluid (ml): per MD Needs based on: [facility] Education needed: None Nutrition Diagnostic Statement: (NI-2.1) Inadequate oral food/beverage intake related to: inabilityto take PO due to critical illness / intubation as evidenced by : NPO / tube feedings Nutrition Intervention: (ND-2) Enteral/parenteral nutrition: Recommendations: While on current rate of Propofol, suggest changing feeds to Glucerna 1.2 at 35 ml/hr for 1008 KCAL, 676 ml water, and 50 gms protein / flushes per MD to avoid overfeeding. Suggest protein additive BID (34 gms protein / 200 KCAL) initially Re-evaluate enteral nutrition goal as Propofol rate changes. Request scale weight when feasible. Monitoring: Total energy intake Enteral intake and tolerance Labs and weight trends Evaluation: Diagnostic Statement #1 Goals: Nutrition Goal: Total intake will meet estimated nutrient needs Nutrition Goal Timeframe: Throughout stay Nutrition Goal Progress: Continue with current goal R RELATIONS TEACHER * Oren Manzano MD - 11/10/2013 11:21 AM CST Pulmonary Progress Note Admit Date: 11/01/2013 2:34 PM Hospital Day: 9 Symptoms Pt remains intubated and sedate. Unresponsive when seen. On FiO2 down to 40% with PEEP of 10 with O2 sats 96% when seen. Data Temp (30hrs) Max:98.7 ??F Vitals: 11/10/13 0915 11/10/13 0930 11/10/13 0945 11/10/13 1000 BP: 151/72 Pulse: 55 56 53 50 Temp: Resp: 24 24 24 24 Weight: SpO2: 94% 94% 96% 96% Intake/Output Summary (Last 24 hours) at 11/10/13 1121 Last data filed at 11/10/13 0800 Gross per 24 hour Intake 5050.3 ml Output 1296 ml Net 3754.3 ml Filed Wts: 11/01/13 2100 11/04/13 0025 11/07/13 1100 Weight: 96.3 kg (212 lb 4.9 oz) 125.011 kg (275 lb 9.6 oz) 125.011 kg (275 lb 9.6 oz) Pulmonary Rehab Resting Ambulation Post Activity Heart Rate Pre Heart Rate: 72 (11/06/13 0913) Ambulation Heart Rate: 95 Post Heart Rate: 74 SaO2 Pre SaO2 (%): 94 % Ambulation SaO2: 96 Post SaO2 (%): 97 % O2 Device Resting O2 device: High Flow Nasal Cannula (Oximizer, Vapotherm, Aquinox) Ambulation O2 Device: High Flow Nasal Cannula (Oximizer, Vapotherm, Aquinox) (100% 8l oxy, weaned down to 4L 0xy with Sao2 96-98% Min. CAMPUZANO) Post O2 Device: High Flow Nasal Cannula (Oximizer, Vapotherm, Aquinox) O2 L/M Pre O2 L/M: 8 L/M Ambulation O2 L/M: 4 L/M Post O2 L/M: 4 L/M O2 % (FiO2) Type of Activity: Ambulation Ambulation Distance (ft): 85 feet (One standing then sitting rest 1/2 way. ) Vent settings: Vitals Pulse: 50 SpO2: 96 % ETCO2 (mmHg): 40 mmHg Ventilation Rate Ventilation Rate Set (bpm): 24 bpm Ventilation Rate Observed (bpm): 24 bpm Insp Time (%): 30 % Insp Time (sec): 0.75 sec Insp Flow (L/Min): 38 l/Min I:E Ratio: 1:2.3 Volumes Tidal Volume Set (mL): 400 ML [place] Body Weight (kg): 59.2 kg Calculated Tidal Volume (mL) /[place] Body Weight (kg) : 6.76 Exhaled Tidal Volume (ml): 400 ml Minute Ventilation Observed (Lpm): 9.8 Liters/Minute Tubing Compensation (ATC): On Ventilator Pressures Peak Inspiratory Pressure Observed (cm H2O): 31 cm H2O Mean Airway Pressure (cm H2O): 16 cm H2O PEEP/CPAP (cm H2O): 10 cm H20 Exam General appearance: Comfortable, on ventilator. Vent settings reviewed at bedside and as noted above. Lungs: Diminished air entry on the left base. No wheezing or crackles. Heart: regular rhythm, normal S1 and S2, without murmurs, gallops or rubs Abdomen: soft without mass, non-tender, with normal bowel sounds, obese Extremities: 1+ bilateral lower extremity edema, no clubbing, no cyanosis Neuro: Sedated. Moving all extremities. Skin: No acute rash My review of labs, imaging, notes and other tests is significant for the following: . Component Name 11/10/139 11/09/13 0429 11/08/13 0348 SODIUM 142 141 142 POTASSIUM 3.8 3.8 3.9 CHLORIDE 102 99 94* CO2 34* 34* >45* BUN 22* 22* 26* CREATININE 0.42* 0.41* 0.35* GLUCOSE 336* 195* 61* CALCIUM 8.4* 8.3* 9.0 . Component Name 11/10/13 0229 11/02/13 0318 11/01/13 2135 MAGMGDL 1.8 2.0 1.6 . Component Name 11/10/1322811/09/1334811/08/13347 WBC 8.7 10.5 10.6 HGB 13.0 13.4 13.3 HCT 43.1 44.4 45.9 PLTCOUNT 147* 157 131* Cultures: Reviewed. XRays: 11/04/13 pcxr: reviewed - improved with re-expansion of left lung with LLL IF/ atel remains with increase RLLF atel. CM remains with small bilat effusions. Chest x-ray 11/09/12 shows better aeration of the left upper lobe. CT scan shows collapse of the left upper and left lower lobes. No gross endobronchial lesions. Plan of care discussed with critical care medicine. 11/10/13 pcxr: reviewed - improving aeration LULF, LMLF, remains with LLL atel, improving RMLF/ RLLFISIF's, tubes ok. 2D Echo: 11/03/13 - Left ventricle: - Systolic function was normal. Ejection fraction was estimated in the range of 55 % to 65 %. - There were no regional wall motion abnormalities. - Doppler parameters were consistent with abnormal left ventricular relaxation (grade 1 diastolic dysfunction). - Mitral valve: - There was mild annular calcification. - Left atrium: - The atrium was mildly dilated. LE Venous dopplers: 11/04/13 - no DVT's bilat with incidental finding of an anechoic, non-vascular soft tissue mass within the popliteal fossa of the right and left lower extremities (?Palacios cysts). Impression: Dyspnea Acute on chronic respiratory failure - hypoxemic/ hypercapnic Atelectasis - left lung . Status post bronchoscopy 11/08/13. Mucous plugging left mainstem bronchus.Cleared. No endobronchial lesions. Left lower lobe remains atelectatic. Pneumonia. No significant hyperemia during bronchoscopy. However, the patient has developed low-grade fever. At high risk for nosocomial pneumonia. Await final sputum cx results. CHF - mostly Rt sided COPD with exacerbation Cor Pulmonale - acute on chronic RIKKI CAD - h/o MD and PCI H/O CVA - with dysarthria DM Morbid obesity Recommendations: 1. Continue mechanical ventilation. Volume control. Tidal volume 400cc. Respiratory 24 per minute. Positive end-expiratory pressure 10. FiO2 40%. Wean PEEP as tolerated to keep saturation between 89 to 93% Sedation as needed. Follow ABG's. 2. Empiric antibiotics - continue Vanc/ Zosyn/ Levaquin as ordered. 3. Will hold on repeat bronch today given today's CXR. Will re-check CXR in am. 4. Mucolytics - continue Mucinex bid. 5. Bronchodilators - nebs qid with Symbicort inhaler bid. No wheezes on exam today. 6. Continue Solu-Medrol 40 milligram every 8 hours and wean as clinical course improves. 7. Lasix as needed. 8. DVT/ PUD prophylaxis - as ordered. 9. SS Insulin coverage as needed. 10. Nutritional support: instructed nurse to resume tube feeds. Prognosis: very guarded. Continue supportive care. R RELATIONS TEACHER * Frida Gaxiola RN - 11/10/2013 7:59 AM CST Transferred to ICU, currently intubated. Noted prior to admission patient was indep and staying with friend. Noted patient does not have either O2 or bipap at home. Noted SW was working with patient for possible placement Vs returning to friends home at discharge. AT this time, discharge plan is to be based on medical course, anticipate will need SNF vs rehab atdischarge. Would benefit from resuming PT when medically stable. Kaylyn Gaxiola RN, Case Manger Ascom [phone], pager [phone] R RELATIONS TEACHER * Pamela Phillips RN - 11/10/2013 7:11 AM CST Cardiac Rehab deferred, patient inappropriate for activity at this time, pt intubated. Will continue to follow patient status and advance as appropriate. Thank you for the referral. R RELATIONS TEACHER * Morgan Marsh MD - 11/09/2013 5:59 PM CST Pulmonary Progress Note Admit Date: 11/01/2013 2:34 PM Hospital Day: 8 Symptoms Intubated. History not obtainable Data Temp (30hrs) Max:100.3 ??F Vitals: 11/09/13 1645 11/09/13 1700 11/09/13 1715 11/09/13 1730 BP: 158/74 171/74 Pulse: 57 56 55 55 Temp: Resp: 24 24 23 24 Weight: SpO2: 96% 96% 96% 96% Intake/Output Summary (Last 24 hours) at 11/09/13 1759 Last data filed at 11/09/13 1730 Gross per 24 hour Intake 5174.7 ml Output 2312 ml Net 2862.7 ml Filed Wts: 11/01/13 2100 11/04/13 0025 11/07/13 1100 Weight: 96.3 kg (212 lb 4.9 oz) 125.011 kg (275 lb 9.6 oz) 125.011 kg (275 lb 9.6 oz) Pulmonary Rehab Resting Ambulation Post Activity Heart Rate Pre Heart Rate: 72 (11/06/13 0913) Ambulation Heart Rate: 95 Post Heart Rate: 74 SaO2 Pre SaO2 (%): 94 % Ambulation SaO2: 96 Post SaO2 (%): 97 % O2 Device Resting O2 device: High Flow Nasal Cannula (Oximizer, Vapotherm, Aquinox) Ambulation O2 Device: High Flow Nasal Cannula (Oximizer, Vapotherm, Aquinox) (100% 8l oxy, weaned down to 4L 0xy with Sao2 96-98% Min. CAMPUZANO) Post O2 Device: High Flow Nasal Cannula (Oximizer, Vapotherm, Aquinox) O2 L/M Pre O2 L/M: 8 L/M Ambulation O2 L/M: 4 L/M Post O2 L/M: 4 L/M O2 % (FiO2) Type of Activity: Ambulation Ambulation Distance (ft): 85 feet (One standing then sitting rest 1/2 way. ) Exam General appearance: Comfortable, on ventilator Lungs: Diminished air entry on the left side. Crackles at the bases. No wheezing Heart: regular rhythm, normal S1 and S2, without murmurs, gallops or rubs Abdomen: soft without mass, non-tender, with normal bowel sounds, obese Extremities: 1+ bilateral lower extremity edema, no clubbing, no cyanosis Neuro: Sedated. Moving all extremities. Skin: No acute rash My review of labs, imaging, notes and other tests is significant for the following: ABG today - 7.35/ 95/ 48 (on BiPAP 24/6, 70% FiO2) Cultures: Reviewed. XRays: 11/04/13 pcxr: reviewed - improved with re-expansion of left lung with LLL IF/ atel remains with increase RLLF atel. CM remains with small bilat effusions. Chest x-ray 11/09/12 shows better aeration of the left upper lobe. CT scan shows collapse of the left upper and left lower lobes. No gross endobronchial lesions. Plan of care discussed with critical care medicine. Followup chest x-ray tomorrow 2D Echo: 11/03/13 - Left ventricle: - Systolic function was normal. Ejection fraction was estimated in the range of 55 % to 65 %. - There were no regional wall motion abnormalities. - Doppler parameters were consistent with abnormal left ventricular relaxation (grade 1 diastolic dysfunction). - Mitral valve: - There was mild annular calcification. - Left atrium: - The atrium was mildly dilated. LE Venous dopplers: 11/04/13 - no DVT's bilat with incidental finding of an anechoic, non-vascular soft tissue mass within the popliteal fossa of the right and left lower extremities (?Palacios cysts). Impression: Dyspnea Acute on chronic respiratory failure - hypoxemic/ hypercapnic Atelectasis - left lung . Status post bronchoscopy 11/08/13. Mucous plugging left mainstem bronchus.Cleared. No endobronchial lesions. Left lower lobe is again atelectatic. Pneumonia. No significant hyperemia during bronchoscopy. However, the patient has developed low-grade fever. At high risk for nosocomial pneumonia CHF - mostly Rt sided COPD with exacerbation, wheezing yesterday Cor Pulmonale - acute on chronic RIKKI CAD - h/o MD and PCI H/O CVA - with dysarthria DM Morbid obesity Recommendations: 1. Continue mechanical ventilation. Volume control. Tidal volume 400cc. Respiratory 24 per minute. Positive end-expiratory pressure 10. FiO2 50%. Continued to wean oxygen as tolerated to keep saturation between 89 to 93% 2. Empiric antibiotics 3. Repeat bronchoscopy tomorrow 4. Mucolytics - continue Mucinex bid. 5. Bronchodilators - nebs qid with Symbicort inhaler bid. No wheezes on exam today.. 6. Continue Solu-Medrol 40 milligram every 8 hours and wean as the patient 7. Lasix as needed. 8. DVT/ PUD prophylaxis - as ordered. 9. SS Insulin coverage as needed. R RELATIONS TEACHER * Rajwinder Galicia MD - 11/09/2013 1:03 PM CST Admit Date: 11/01/2013 2:34 PM Hospital Day: 8 New Symptoms Patient restless, on vent Data Vitals: 11/09/13 1115 11/09/13 1130 11/09/13 1145 11/09/13 1200 BP: 162/71 152/67 Pulse: 76 83 83 71 Temp: Resp: 24 24 24 24 Weight: SpO2: 94% 92% 94% 93% Intake/Output Summary (Last 24 hours) at 11/09/13 1303 Last data filed at 11/09/13 1000 Gross per 24 hour Intake 3297.7 ml Output 2177 ml Net 1120.7 ml My review of labs, imaging, notes and other tests is significant for improved labs Component Name 11/09/13 0429 11/08/13 0348 11/05/13 0509 SODIUM 141 142 137 POTASSIUM 3.8 3.9 5.0 CHLORIDE 99 94* 89* CO2 34* >45* >45* BUN 22* 26* 22* CREATININE 0.41* 0.35* 0.41* GLUCOSE 195* 61* 237* CALCIUM 8.3* 9.0 8.9 Component Name 11/09/13 0349 11/08/13 0348 11/03/13 0452 WBC 10.5 10.6 11.8* HGB 13.4 13.3 13.7 HCT 44.4 45.9 47.5 PLTCOUNT 157 131* 178 Exam General appearance: restless, Heart: regular rhythm, normal S1 and S2, without murmurs, Lungs: breath sounds symmetric; occ wheezes Abdomen: soft, obese, non-tender, with normal bowel sounds Extremities: no edema Assessment and Plan 1 Vbiuq-hmzn-aococbn respiratory failure with significant hypoxemia and hypercapnia secondary to nonusage of oxygen and noncompliance with his BiPAP. Intubated currently. IV steroids 2. Diabetes, uncontrolled. On SSI. Home med list obtained . Supplemental insulin per ICU protocol 3. Obstructive sleep apnea. Noncompliant with CPAP with significant hypercapnia. Improving on vent 4. Probable Acute over chronic cor pulmonale/right heart failure with mildly elevated BNP and lower extremity edema, possible secondary pulmonary hypertension. ECHO showed nl LVEF. 5. Lower extremity edema. Improved with diuresis. 6. History of coronary artery disease and myocardial infarction 7. History of old cerebrovascular accident. 8. Left arm bruising, soft tissue contusion. . 9. Deep venous thrombosis prophylaxis. With BID lovenox 10. Morbid Obesity R RELATIONS TEACHER * Jenifer Bhardwaj MD - 11/09/2013 11:17 AM CST Critical Care Medicine Date of service: 11/09/2013 at 11:17 AM Initial admission date: 11/01/2013 Hospital Day: 8 Patient's primary care physician: Pcp None Physician Requesting service: Bk Lemus MD Name: Jp Knox Age: 52 y.o. Gender: male ICU Course 11/09- remains intubated. Some aeration of left upper lobe but still significant opacification of left lung. Weaning fio2. CT cheat done. Current Medications 0.9% NaCl injection 3 mL, Active, Intracatheter, q8h 0.9% NaCl IV Bolus, Completed, Intravenous, Once albuterol (PROVENTIL;VENTOLIN) (5 MG/ML) 0.5% nebulizer solution 2.5 mg, Active, Inhalation, 4X/day aspirin tablet 325 mg, Active, Per NG tube, QDAY budesonide-formoterol (SYMBICORT) 160-4.5 MCG/ACT inhaler 2 Puff, Active, Inhalation, BID enoxaparin (LOVENOX) injection 40 mg, Active, Subcutaneous, 0600 and 1800 famotidine (PEPCID) injection 20 mg, Active, Intravenous, BID fentaNYL (SUBLIMAZE) injection 50 mcg, Completed, Intravenous, Once fentaNYL (SUBLIMAZE) injection 50 mcg, Completed, Intravenous, Once insulin lispro (humaLOG) injection 3-18 Units, Active, Subcutaneous, q6h ipratropium (ATROVENT) nebulizer solution 0.5 mg, Active, Inhalation, 4X/day levofloxacin (LEVAQUIN) IVPB 750 mg, Active, Intravenous, q24h methylPREDNISolone sod succ (Solu-MEDROL) injection 40 mg, Active, Intravenous, q8h midazolam (VERSED) injection 2 mg, Completed, Intravenous, Once piperacillin - tazobactam (ZOSYN) IVPB 3.375 g, Active, Intravenous, q6h vancomycin (VANCOCIN) 1,500 mg in NaCl 0.9 % IVPB, Active, Intravenous, q12h vancomycin (VANCOCIN) 2,500 mg in NaCl 0.9 % IVPB, Completed, Intravenous, Once Current IV Medications Continuous IV Medications Medication Status Dose Route Frequency ??? propofol (DIPRIVAN) injection Active 0-50 mcg/kg/min Intravenous Continuous ??? 0.9% NaCl infusion Active Intravenous Continuous Current PRN Medications PRN Medications Medication Status Dose Route Frequency ??? hydrALAZINE (APRESOLINE) injection 10 mg Active 10 mg Intravenous q4h PRN ??? acetaminophen (TYLENOL) tablet 650 mg Active 650 mg Oral q6h PRN ??? traZODone (DESYREL) tablet 50 mg Active 50 mg Oral AT BEDTIME PRN ??? 0.9% NaCl injection 2-10 mL Active 2-10 mL Intracatheter PRN ??? 0.9% NaCl IV Bolus Active 10-50 mL Intravenous PRN ??? albuterol (PROVENTIL;VENTOLIN) (5 MG/ML) 0.5% nebulizer solution 2.5 mg Active 2.5 mg Inhalation PRN ??? albuterol (PROVENTIL;VENTOLIN) (5 MG/ML) 0.5% nebulizer solution 2.5 mg Active 2.5 mg Inhalation 4X/day PRN ??? ipratropium (ATROVENT) nebulizer solution 0.5 mg Active 0.5 mg Inhalation 4X/day PRN Past Medical History Diagnosis Date ??? COPD (chronic obstructive pulmonary disease) ??? Asthma ??? CHF (congestive heart failure) ??? DM (diabetes mellitus) ??? CVA (cerebrovascular accident) ??? MD (myocardial infarction) ??? High cholesterol Review of Systems Unable to obtain ROS as patient is intubated Ventilator Oxygen Therapy SpO2: 94 % Ventilation Rate Ventilation Rate Set (bpm): 24 bpm Ventilation Rate Observed (bpm): 24 bpm Insp Time (%): 30 % Insp Time (sec): 0.75 sec Insp Flow (L/Min): 38 l/Min I:E Ratio: 1:2.3 Volumes Tidal Volume Set (mL): 400 ML [place] Body Weight (kg): 59.2 kg Calculated Tidal Volume (mL) /[place] Body Weight (kg) : 6.76 Exhaled Tidal Volume (ml): 401 ml Minute Ventilation Observed (Lpm): 10 Liters/Minute Ventilator Pressures Peak Inspiratory Pressure Observed (cm H2O): 27 cm H2O Mean Airway Pressure (cm H2O): 16 cm H2O PEEP/CPAP (cm H2O): 10 cm H20 Vitals Temp (24hrs) Max:100.3 ??F Patient Vitals in the past 4 hrs: 11/09/13 1003, BP:182/70 mmHg 11/09/13 1000, BP:182/70 mmHg, Pulse:77 , Resp:24 , SpO2:94 % 11/09/13 0945, Pulse:73 , Resp:24 , SpO2:95 % 11/09/13 0930, Pulse:74 , Resp:24 , SpO2:95 % 11/09/13 0923, Resp:24 11/09/13 0915, Pulse:75 , Resp:23 , SpO2:93 % 11/09/13 0900, BP:183/78 mmHg, Pulse:77 , Resp:24 , SpO2:92 % 11/09/13 0855, Pulse:54 , Resp:24 11/09/13 0845, Pulse:79 , Resp:24 , SpO2:92 % 11/09/13 0830, Pulse:72 , Resp:24 , SpO2:91 % 11/09/13 0815, Pulse:81 , Resp:24 , SpO2:91 % 11/09/13 0800, BP:165/77 mmHg, Pulse:80 , Resp:24 , SpO2:91 % 11/09/13 0745, Pulse:78 , Resp:24 , SpO2:91 % 11/09/13 0730, Pulse:73 , Resp:23 , SpO2:91 % 11/09/13 0720, Temp:98.7 ??F Physical Exam Constitutional: sedated/intubated Respiratory: Clear to ausculation bilaterally. No wheezing. Cardiovascular: Regular rate and rhythm. Normal S1 S2. Gastrointensitinal: Normoactive bowel sounds. Soft. Nontender and nondistended. Musculoskeletal/Extremities: No clubbing, cyanosis or edema. Warm Skin: No rashes Genitourinary: Aguero in place Neurologic: encephalopathic but no focal defecits off sedation. I &Os Intake/Output Summary (Last 24 hours) at 11/09/13 1117 Last data filed at 11/09/13 1000 Gross per 24 hour Intake: 3297.7 ml Output: 2177 ml Net : 1120.7 ml Results Component Name 11/09/13 0429 11/08/13 0348 11/05/13 0509 11/04/13 0601 11/02/13 0318 11/01/13 2135 11/01/13 1458 SODIUM 141 142 137 -- -- -- -- POTASSIUM 3.8 3.9 5.0 -- -- -- -- CHLORIDE 99 94* 89* -- -- -- -- CO2 34* >45* >45* -- -- -- -- BUN 22* 26* 22* -- -- -- -- CREATININE 0.41* 0.35* 0.41* -- -- -- -- GLUCOSE 195* 61* 237* -- -- -- -- CALCIUM 8.3* 9.0 8.9 -- -- -- -- ALKPHOS -- -- -- -- -- -- 130* ALBUMIN -- -- -- 2.9* -- -- 3.1* ALT -- -- -- -- -- -- 58 AST -- -- -- -- -- -- 42* TBIL -- -- -- -- -- -- 0.6 TPROT -- -- -- -- -- -- 6.5 MAGMGDL -- -- -- -- 2.0 1.6 -- CALCIUMION -- -- -- -- -- -- -- PHOS -- -- -- 4.0 -- 5.6* -- Component Name 11/09/13 0349 11/08/13 0348 11/03/13 0452 WBC 10.5 10.6 11.8* HGB 13.4 13.3 13.7 HCT 44.4 45.9 47.5 PLTCOUNT 157 131* 178 No results found for this basename: LACTICACID:3 in the last 89946 hours Component Name 11/01/13 2135 11/01/13 1458 TROPONIN 0.055* 0.084* CK -- -- Component Name 11/01/13 1459 BNP 199* Component Name 11/08/13 1216 11/08/13 0740 11/08/13 0721 11/07/13 1021 PHART 7.44 7.35 7.43 -- [id number] 73.3* 95.4* 79.2* -- PO2ART 68* 48* 40* -- [id number] 93 77* 72* -- BEART 20* 21* 23* -- FIO2 60 -- 70 70 No results found for this basename: PT:3,INR:3,PTT:3 in the last 68474 hours UA: No results found for this basename: COLORUA,CHARACTERUA,SPECGRAVUA,PHUA,PROTEINUA,BLOODUA,LEUKOC YTEUA,NITRITEUA,GLUCOSEUA,KETONEUA,BILIRUBINUA,UROBILINUA,WBCUA,RBCUA,EPITHUA,MU CUSUA,CASTUA,CRYSTALUA,BACTERIAUA,YEASTUA,TRICHUA in the last 40468 hours EKG: sinus rythym CXR: some improved aeration of left upper lobe. Assessment and Plan 1. NEURO: - metabolic encephalopathy. No focal defecits 2. CVS - - hypertension- will start on prn antihypertensives. -3. RESP -I will continue managing the mechanical ventilator for respiratory failure to prevent imminent deterioration and further organ dysfunction from hypoxemia and hypercarbia. - pneumonia, COPD exaceberation, RIKKI with noncompliance - s/p bronch for left sided mucus plug and complete opacification of left lung by pulmonary on 11/08. Left lung is still collapsed. Plan for repeat bronch in am - will check sputum cx - vanc /zosyn and levaquin empirically - nebs, steroids - CT chest 11/08- no effusion but mucus plugging and dense consolidation on the left. 4. GI - will start tube feeds. 5 .ENDO - accu checks and SSI per protocol - adam d/c lantus and glipizide for now. 6 RENAL - reanl function is good with adequate UO. 7.METABOLIC - metabolic /contraction alkalosis with respiratory acidosis. 8.ID - will place on vanc, zoyn and levaquin empirically and await cx results. 9.HEME-ONC - no active issues 10. GI PROPHYLASIS - pepcid 11. DVT PROPHYLAXIS - lovenox 12. LINES - right Sc TLC- 11/08 - pulled out during CT 11/08 Critical Care Time: Total critical care time in full attention to this patient is 40 minutes, including time for documentation and reviewing lab results, but not including time for separately documented procedures. Thank you Bk Lemus MD for involving [facility] in the care of your patient. R RELATIONS TEACHER * Israel French RN - 11/08/2013 5:53 PM CST Patient transferred to ICU this morning. Intubated and bronched. Central line placed. CT of chest completed. Sedated on Propofol. R RELATIONS TEACHER * Rajwinder Galicia MD - 11/08/2013 4:10 PM CST Admit Date: 11/01/2013 2:34 PM Hospital Day: 7 New Symptoms Patient has had sob despite BIPAP and electively intubated this am. Transferred to ICU Data Vitals: 11/08/13 1500 11/08/13 1515 11/08/13 1530 11/08/13 1545 BP: 116/55 128/64 127/65 141/63 Pulse: 63 60 67 66 Temp: Resp: 24 24 24 24 Weight: SpO2: 89% 91% 90% 91% Intake/Output Summary (Last 24 hours) at 11/08/13 1610 Last data filed at 11/08/13 1400 Gross per 24 hour Intake 740 ml Output 1700 ml Net -960 ml My review of labs, imaging, notes and other tests is significant for mild thrombocytopenia Component Name 11/08/13 0348 11/05/13 0509 11/04/13 0601 SODIUM 142 137 139 POTASSIUM 3.9 5.0 4.9 CHLORIDE 94* 89* 89* CO2 >45* >45* >45* BUN 26* 22* 23* CREATININE 0.35* 0.41* 0.49* GLUCOSE 61* 237* 242* CALCIUM 9.0 8.9 8.7 Component Name 11/08/13 0348 11/03/13 0452 11/02/13 0318 WBC 10.6 11.8* 8.7 HGB 13.3 13.7 14.4 HCT 50.7 47.5 47.9 PLTCOUNT 131* 178 149* Exam General appearance: restless, on vent Heart: regular rhythm, normal S1 and S2, without murmurs, Lungs: breath sounds symmetric; occ wheezes Abdomen: soft, obese, non-tender, with normal bowel sounds Extremities: no clubbing, cyanosis or edema Assessment and Plan 1 Vxuen-caba-ofwmdol respiratory failure with significant hypoxemia and hypercapnia secondary to nonusage of oxygen and noncompliance with his BiPAP. Intubated currently 2. Diabetes, uncontrolled. On SSI. Home med list obtained and restarted, 3. Obstructive sleep apnea. Noncompliant with CPAP with significant hypercapnia. As above 4. Probable Acute over chronic cor pulmonale/right heart failure with mildly elevated BNP and lower extremity edema, possible secondary pulmonary hypertension. ECHO shows nl LVEF. 5. Lower extremity edema. Improved with diuresis. 6. History of coronary artery disease and myocardial infarction 7. History of old cerebrovascular accident. Currently he does not show any acute focal neurological deficits. 8. Left arm bruising, soft tissue contusion. . 9. Deep venous thrombosis prophylaxis. Per ICU staff 10. Metabolic Encephalopathy: Due to significant hypercapnic. Improved with BIPAP. 11. Code Status- change to full for intubation after discussion with patient. 12. Morbid Obesity R RELATIONS TEACHER * Morgan Marsh MD - 11/08/2013 3:28 PM CST Post bronchoscopy chest x-ray shows opacification of the left hemithorax.?. Check CT scan of the chest. R RELATIONS TEACHER * Alanna Flores RPH - 11/08/2013 2:47 PM CST [facility] Clinical Services Vancomycin Protocol S/O Jp Knox is a 52 y.o. male. Height: 5' 4 (162.6 cm) (11/07/13 1100) Wt 125.011 kg (275 lb 9.6 oz) Temp (24hrs), Av.9 ??F, Min:97.4 ??F, Max:98.6 ??F Labs Component Name 11/08/13 0348 11/05/13 0509 11/04/13 0601 11/03/13 0452 11/02/13 0318 CREATININE 0.35* 0.41* 0.49* -- -- BUN 26* 22* 23* -- -- WBC 10.6 -- -- 11.8* 8.7 Assessment Estimated Creatinine Clearance: 298.6 ml/min (based on Cr of 0.35). (using Cockcroft-Gault formula) Vancomycin target: 15-20 mcg/ml and does meet the criteria for a loading dose. Dose Calculation Loading dose: 2500mg (25mg/kg ABW) x 1 Maintenance dose: 1500mg (15mg/kg ABW) interval: every 12 hours (per age/est. GFR) Plan Will begin regimen as outlined above. Plan to obtain an initial vancomycin trough level in 3 days. Pharmacy will monitor labs and adjust dosing regimen per protocol. Alanna Flores RPH 11/08/2013 2:47 PM R RELATIONS TEACHER * Morgan Marsh MD - 11/08/2013 2:44 PM CST Pulmonary Progress Note Admit Date: 11/01/2013 2:34 PM Hospital Day: 7 Symptoms Called because pt more agitated and reported more dyspneic.On BiPAP continuously. Increased oxygen requirement. Worsening hypercapnia. When I saw the patient, on BiPAP. Awake and alert. Data Temp (30hrs) Max:98.6 ??F Vitals: 11/08/13 1400 11/08/13 1405 11/08/13 1407 11/08/13 1415 BP: 113/65 116/61 Pulse: 55 68 60 60 Temp: Resp: 24 33 24 Weight: SpO2: 100% 100% 93% Intake/Output Summary (Last 24 hours) at 11/08/13 1444 Last data filed at 11/08/13 1400 Gross per 24 hour Intake 740 ml Output 1700 ml Net -960 ml Filed Wts: 11/01/13 2100 11/04/13 0025 11/07/13 1100 Weight: 96.3 kg (212 lb 4.9 oz) 125.011 kg (275 lb 9.6 oz) 125.011 kg (275 lb 9.6 oz) Pulmonary Rehab Resting Ambulation Post Activity Heart Rate Pre Heart Rate: 72 (11/06/13 0913) Ambulation Heart Rate: 95 Post Heart Rate: 74 SaO2 Pre SaO2 (%): 94 % Ambulation SaO2: 96 Post SaO2 (%): 97 % O2 Device Resting O2 device: High Flow Nasal Cannula (Oximizer, Vapotherm, Aquinox) Ambulation O2 Device: High Flow Nasal Cannula (Oximizer, Vapotherm, Aquinox) (100% 8l oxy, weaned down to 4L 0xy with Sao2 96-98% Min. CAMPUZANO) Post O2 Device: High Flow Nasal Cannula (Oximizer, Vapotherm, Aquinox) O2 L/M Pre O2 L/M: 8 L/M Ambulation O2 L/M: 4 L/M Post O2 L/M: 4 L/M O2 % (FiO2) Type of Activity: Ambulation Ambulation Distance (ft): 85 feet (One standing then sitting rest 1/[address] way. ) Exam General appearance: Short of breath, on BiPAP Lungs: Diminished air entry on the left side. Crackles at the bases. No wheezing Heart: regular rhythm, normal S1 and S2, without murmurs, gallops or rubs Abdomen: soft without mass, non-tender, with normal bowel sounds, obese Extremities: 1+ bilateral lower extremity edema, no clubbing, no cyanosis Neuro: speech dysarthric,, LEWIS. Skin: No acute rash My review of labs, imaging, notes and other tests is significant for the following: ABG today - 7.35/ 95/ 48 (on BiPAP 24/6, 70% FiO2) Cultures: Reviewed. XRays: 11/04/13 pcxr: reviewed - improved with re-expansion of left lung with LLL IF/ atel remains with increase RLLF atel. CM remains with small bilat effusions. 11/07/13 p cxr. Personally reviewed. Complete atelectasis of the left lung. 2D Echo: 11/03/13 - Left ventricle: - Systolic function was normal. Ejection fraction was estimated in the range of 55 % to 65 %. - There were no regional wall motion abnormalities. - Doppler parameters were consistent with abnormal left ventricular relaxation (grade 1 diastolic dysfunction). - Mitral valve: - There was mild annular calcification. - Left atrium: - The atrium was mildly dilated. LE Venous dopplers: 11/04/13 - no DVT's bilat with incidental finding of an anechoic, non-vascular soft tissue mass within the popliteal fossa of the right and left lower extremities (?Palacios cysts). This critically sick patient is unstable and at risk of deterioration due to atelectasis of the left lung, shunting, severe hypoxemia and respiratory failure. 33 minutes of critical care services were provided throughout the day including serial assessment and management of Respiratory status. I personally reviewed multiple database and radiology images. I will continue managing for respiratory failure to prevent imminent deterioration and further organ dysfunction from hypoxemia. Management plan was discussed with Dr Rand,CCM I devoted my full attention to the direct care of this patient for the time specified. Impression: Dyspnea Acute on chronic respiratory failure - hypoxemic/ hypercapnic Atelectasis - left lung - re-developed - suspect mucus plugging but cannot r/o obstructive process. CHF - mostly Rt sided COPD with exacerbation Cor Pulmonale - acute on chronic RIKKI CAD - h/o MD and PCI H/O CVA - with dysarthria DM Morbid obesity Recommendations: 1. Failing BiPAP. Persistent atelectasis. BiPAP impairing secretion clearance. Worsening hypercapnia. The patient is DNR. Discussed with the patient. He wants to change code status and be intubated. Will transfer to the ICU 2. Electively intubated 3. Bronchoscopy to clear secretions 4. Mucolytics - continue Mucinex bid. 5. Bronchodilators - nebs qid with Symbicort inhaler bid. No wheezes on exam today.. 6. Continue prednisone with plans to taper further as tolerated. 7. Lasix as needed. 8. DVT/ PUD prophylaxis - as ordered. 9. SS Insulin coverage as needed. 10. F/U CXR after bronchoscopy. R RELATIONS TEACHER * Arianne Weiss RN - 11/08/2013 9:35 AM CST Rounds completed with . Plan of care reviewed with patient. Dr. Marsh discussed intubation and alternative options. Pt states I don't want to and verbalizes that he is agreeable to intubation at this time. This RN attempted to contact POA and alternative POA without success. Pts familyfriend to attempt to contact POA. R RELATIONS TEACHER * Pamela Phillips RN - 11/08/2013 8:16 AM CST Cardiac Rehab deferred, patient inappropriate for activity at this time, pt on MD Maida orders to hold CR ambulation at the present time. Will continue to follow patient status and advance as appropriate. Thank you for the referral. R RELATIONS TEACHER * Kary Ibarra RN - 11/08/2013 5:20 AM CST CPAP/ BIPAP on. Pt is on a low bed. Left hand is red l Limited Resuscitation.. Kiana Ibarra RN R RELATIONS TEACHER * Bk Lemus MD - 11/07/2013 4:16 PM CST Hospitalist Progress Note Admit Date: 11/01/2013 2:34 PM Hospital Day: 6 Clinical Course More agitated today. Lower sats. Placed back on BIPAP. New Symptoms complains of feeling SOB and agitated. Keeps mumbling. Explained that home with O2 alone will not be safe and without BIPAP there is high chance for respiratory failure, coma and . Pt adamant about going home when he is ready for dc. Data Vitals: 11/07/13 1100 11/07/13 1113 11/07/13 1358 11/07/13 1555 BP: 157/90 130/85 Pulse: 98 Temp: 98 ??F 97.6 ??F Resp: 24 Weight: 125.011 kg (275 lb 9.6 oz) SpO2: 90% 97% Temp (30hrs) Max:98.8 ??F Intake/Output Summary (Last 24 hours) at 11/07/13 1616 Last data filed at 11/07/13 1422 Gross per 24 hour Intake 240 ml Output 2475 ml Net -2235 ml My review of labs, imaging, notes and other tests is significant for Component Name 11/03/13 0452 11/02/13 0318 11/01/13 1458 WBC 11.8* 8.7 12.5* HGB 13.7 14.4 14.7 HCT 47.5 47.9 48.5 PLTCOUNT 178 149* 270 Component Name 11/05/13 0509 11/04/13 0601 11/03/13 0452 SODIUM 137 139 139 POTASSIUM 5.0 4.9 4.8 CHLORIDE 89* 89* 92* CO2 >45* >45* >45* BUN 22* 23* 26* CREATININE 0.41* 0.49* 0.55 GLUCOSE 237* 242* 250* CALCIUM 8.9 8.7 8.5 XRays: 11/04/13 pcxr: reviewed - improved with re-expansion of left lung with LLL IF/ atel remains with increase RLLF atel. CM remains with small bilat effusions. Exam EDEMA x 4 limbs has improved. General appearance: more restless and dyspneic today. Heart: Increased rate and regular rhythm, normal S1 and S2, without murmurs, rubs or gallops Lungs: Decreased breath sounds left lung. equal expansion with good effort, moderately decreased breath sounds bilaterally, bibasilar crackles but no wheezes Abdomen: OBESE, soft without mass, non-tender, with normal bowel sounds Extremities: no clubbing, cyanosis . Pitting edema BL LE. SOCK KNITTER. Alert and oriented x 3. .No new focal deficits , speech dysarthric Assessment and Plan 1. Ntrot-kggv-rkkfatr respiratory failure with significant hypoxemia and hypercapnia secondary to nonusage of oxygen and noncompliance with his BiPAP. stabilised on BIPAP. [place]ola pulm eval and recc. 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 Placed back on BIPAP. Possible more mucus plugging. Atelectasis - left lung - re-developed - suspect mucus plugging but cannot r/o obstructive process.WIll possibly need Bronch. Possible component of vlolume overload. Diurese with Lasix x 1 dose. Aguero catheter for accurate I/O's Needs BIPAP at DC but unable to arrange due to [place] medicaid and pt now living in [place]. CM D/w friend who is allowing pt to stay for few months in winter. Pt had signed himself out of a SNF in [place]. High risk for readmission due to very severe RIKKI and hypercapnia, which will worsen without BIPAP at night. Once stabilised, may need to have a family conference about this difficult situation , possible early next week. 2. Diabetes, uncontrolled. On SSI. HOme med list obtained and restarted, 3. Obstructive sleep apnea. Noncompliant with CPAP with significant hypercapnia. Continue BiPAP support. See above 4. Probable Acute over chronic cor pulmonale/right heart failure with mildly elevated BNP and lower extremity edema, possible secondary pulmonary hypertension. ECHO shows nl LVEF. 5. Lower extremity edema. Improved with diuresis. 6. History of coronary artery disease and myocardial infarction with intermediate zone troponins. Follow serial troponins at this point. Continue oral aspirin 7. History of old cerebrovascular accident. No further details available. Currently he does not show any acute focal neurological deficits. 8. Left arm bruising, soft tissue contusion. History of trauma. No gross deformities or pain. Full range of motions are noted. 9. Deep venous thrombosis prophylaxis. Subcutaneous heparin or Lovenox 10. Metabolic Encephalopathy: Due to significant hypercapnic. Improved with BIPAP. 11. Code Status--DNR DNI per pts wishes. POA aware and agrees. 12. Morbid Obesity Body mass index is 47.31 kg/(m^2). Poor prognosis CXR reviewed. D/w Dr Manzano. Total time spent in critical care and coordination is 40 mins. R RELATIONS TEACHER * Dimple Elena [facility] - 11/07/2013 2:37 PM CST [facility] Renal Dose Adjustment Policy Jp Knox male, is 52 y.o. Wt 125.011 kg (275 lb 9.6 oz) Body mass index is 47.31 kg/(m^2). Labs Component Name 11/05/13 0509 11/04/13 0601 11/03/13 0452 CREATININE 0.41* 0.49* 0.55 BUN 22* 23* 26* CrCl is 254ml/min (based on a S.Cr of 0.4) (using Cockcroft-Gault formula) Assessment/Plan Enoxaparin (Lovenox) - CrCl is greater than 30ml/min and patient's BMI is greater than 40kg/m2; will change dose to 40mg SC BID Dimple Elena Eliza. 11/07/2013 2:37 PM R RELATIONS TEACHER * Merle Carpio RN - 11/07/2013 12:34 PM CST Shift Summary: Report given to Yosi Peacock LPN who will be assuming care at this time. Pt A&O x4,VSS, afebrile w/apparent SOB on 70% O2 on Bi-pap. Dr. Manzano has been here to see pt & is aware of pt condition. Aguero catheter inserted for accurate I&O. SR w/PAC's per telemetry. Pt insists he get to eat. Education provided on staying on the Bi-pap vs. eating, verbalizes understanding,yet continues to yell out that he wants to eat. Merle Carpio RN 11/07/2013 12:37 PM R RELATIONS TEACHER * Lissette Mock, RD/LD - 11/07/2013 11:22 AM CST Problem: Nutrition Care Process Goal: Nutrition Care Process Initial Nutrition Assessment Comments: Consult received for poor nutritional intake. Pt not appropriate for interview as he is in 'severe respiratory distress' per nursing notes and 'agitated' per MD notes. Pt currently on BiPAPand unable to eat at this time due to respiratory status--per nursing. Suggest resuming PO intake as appropriate per MD. Will order Glucerna for when diet resumes. Assessment: Med/Surg History and Clinical Diagnoses: Dx: SOB; PMH: COPD, CHF, DM, CVA, MD, high cholesterol Height: 5' 4 (162.6 cm) Weight: 275 lb 9.6 oz (125.011 kg) BMI: Body mass index is 47.31 kg/(m^2). BMI Range: Morbidly Obese Class 3 Current diet order: 1800 ADA Nutrition recommendation: alter/change nutrition order (add Glucerna. Allow PO diet per MD. ) P.O.Intake for the past 48 hrs: % Meal Taken Av % Min: 25 % Max: 100 % GI Concerns: None Chewing/Swallowing: None Pain affecting intake: No Estimated Needs: KCAL: 6188-6910 kcal (25-30 kcal/kg IBW) Protein (g): 71 gm (1.2 gm/kg IBW) Fluid (ml): per MD Needs based on: Kcal/kg- (Comment) Pertinent Nutrition Labs: reviewed Pertinent Nutrition Medications: noted Skin: Exceptions to WDL per nursing assess Education needed: None Nutrition Diagnostic Statement: (NI-2.1) Inadequate oral food/beverage intake related to: poor appetite/respiratory distress as evidenced by : Pt not meeting nutritional needs Nutrition Intervention: (ND-1) Meals and snacks:;(ND-3.1) Medical Food Supplements: Recommendations: Glucerna ordered TID. (PO intake per MD recommendations). Glucerna (Diabetic Supplement) provides 220 calories and 10 gm protein per serving. Monitoring: Total energy intake, weight, labs, plan of care Evaluation: Diagnostic Statement #1 Goals: Nutrition Goal: Total intake will meet estimated nutrient needs Nutrition Goal Timeframe: Throughout stay Nutrition Goal Progress: New goal established R RELATIONS TEACHER * Delma Nguyen MSW - 11/07/2013 10:23 AM CST Spoke with nichole/rona Davis [phone], [address] [place] [address]. She states she will bring pt back home upon dc. She states that pt will leave a [place] AMA, as he recently did from [facility]. She did call the NH and inquired if they would accept him back and they declined, stating that pt will leave AMA. She would like home care. Case conferenced with RN and he may need to transfer to the ICU. Will continue to follow as needed. Delma Nguyen, CORN LAB TECHNICIAN [phone] R RELATIONS TEACHER * Oren Manzano MD - 11/07/2013 10:20 AM CST Pulmonary Progress Note Admit Date: 11/01/2013 2:34 PM Hospital Day: 6 Symptoms Called because pt more agitated and reported more dyspneic. Pt on BiPAP which he wore last night but required increase FiO2 to 70%. When seen RR 24 bpm, sats 87-92% and pt more agitated that being indistress due to SOB though he c/o being more SOB. ABG and CXR ordered. Data Temp (30hrs) Max:98.8 ??F Vitals: 11/07/13 0529 11/07/13 0813 11/07/13 0815 11/07/13 0820 BP: 146/90 Pulse: 95 91 Temp: 98.7 ??F Resp: 18 18 Weight: SpO2: 95% Intake/Output Summary (Last 24 hours) at 11/07/13 1020 Last data filed at 11/06/13 2128 Gross per 24 hour Intake 240 ml Output 1175 ml Net -935 ml Filed Wts: 11/01/13 2100 11/04/13 0025 Weight: 96.3 kg (212 lb 4.9 oz) 125.011 kg (275 lb 9.6 oz) Pulmonary Rehab Resting Ambulation Post Activity Heart Rate Pre Heart Rate: 72 (11/06/13 0913) Ambulation Heart Rate: 95 Post Heart Rate: 74 SaO2 Pre SaO2 (%): 94 % Ambulation SaO2: 96 Post SaO2 (%): 97 % O2 Device Resting O2 device: High Flow Nasal Cannula (Oximizer, Vapotherm, Aquinox) Ambulation O2 Device: High Flow Nasal Cannula (Oximizer, Vapotherm, Aquinox) (100% 8l oxy, weaned down to 4L 0xy with Sao2 96-98% Min. CAMPUZANO) Post O2 Device: High Flow Nasal Cannula (Oximizer, Vapotherm, Aquinox) O2 L/M Pre O2 L/M: 8 L/M Ambulation O2 L/M: 4 L/M Post O2 L/M: 4 L/M O2 % (FiO2) Type of Activity: Ambulation Ambulation Distance (ft): 85 feet (One standing then sitting rest 1/2 way. ) Exam General appearance: no distress Lungs: equal expansion with good effort, marked decreased BS left lung with Rt basilar crackles, nowheezes. Heart: regular rhythm, normal S1 and S2, without murmurs, gallops or rubs Abdomen: soft without mass, non-tender, with normal bowel sounds, obese Extremities: 1+ bilateral lower extremity edema, no clubbing, no cyanosis Neuro: speech dysarthric,, LEWIS My review of labs, imaging, notes and other tests is significant for the following: ABG - 7.42/ 86/ 73 (on BiPAP 24/6, 70% FiO2) Cultures: Reviewed. XRays: 11/04/13 pcxr: reviewed - improved with re-expansion of left lung with LLL IF/ atel remains with increase RLLF atel. CM remains with small bilat effusions. 11/07/13 pcxr: reviewed: - redevelopment of left lung atelectasis with mediastinal shift to left with increase in ISIF's throughout Rt lung. 2D Echo: 11/03/13 - Left ventricle: - Systolic function was normal. Ejection fraction was estimated in the range of 55 % to 65 %. - There were no regional wall motion abnormalities. - Doppler parameters were consistent with abnormal left ventricular relaxation (grade 1 diastolic dysfunction). - Mitral valve: - There was mild annular calcification. - Left atrium: - The atrium was mildly dilated. LE Venous dopplers: 11/04/13 - no DVT's bilat with incidental finding of an anechoic, non-vascular soft tissue mass within the popliteal fossa of the right and left lower extremities (?Palacios cysts). Impression: Dyspnea Acute on chronic respiratory failure - hypoxemic/ hypercapnic Atelectasis - left lung - re-developed - suspect mucus plugging but cannot r/o obstructive process. CHF - mostly Rt sided COPD with exacerbation Cor Pulmonale - acute on chronic RIKKI CAD - h/o MD and PCI H/O CVA - with dysarthria DM Morbid obesity Recommendations: 1. Continue BiPAP with settings of 24/6 with back up rate of 14 bpm with O2 bled continuously for now. Wean FiO2 as tolerated. 2. Discussed with RT - to re-institute chest PT to left lung qid. 3. May need to consider bronch to inspect airways. 4. Mucolytics - continue Mucinex bid. 5. Bronchodilators - nebs qid with Symbicort inhaler bid. No wheezes on exam today.. 6. Continue prednisone with plans to taper further as tolerated. 7. Will give dose of IV Lasix now. To place aguero catheter. Monitor lytes and UOP. 8. DVT/ PUD prophylaxis - as ordered. 9. SS Insulin coverage as needed. 10. DNR/ DNI with medical management as noted. 11. Hold on ambulation with CP rehab at this time. 12. F/U CXR in am. Prognosis: guarded. Continue supportive care. Will continue to monitor on current telemetry floor. Critical care time: 32 min R RELATIONS TEACHER * Pamela Phillips RN - 11/07/2013 10:13 AM CST Cardiac Rehab deferred, patient inappropriate for activity at this time, pt in severe resp distress, BiPap placed, ? intubation. Will continue to follow patient status and advance as appropriate. Thank you for the referral. R RELATIONS TEACHER * Tuyet Grant RN - 11/07/2013 6:10 AM CST Shift summary: Slept with bipap on during the nigh.tOxygen levels 91 to 93. Awake at intervals to use urinal or BSC. Needs moderate to max assist of 2 to get up OOB.CSN documented heart rhythm as SR 50-60's.Had large BM tonight.IV due for scheduled change and restarted. R RELATIONS TEACHER * Bk Lemus MD - 11/06/2013 10:02 PM CST Hospitalist Progress Note Admit Date: 11/01/2013 2:34 PM Hospital Day: 5 Clinical Course Overall patient has moderately improved since my last note. New Symptoms Staff reports: Complaint with his BIPAP at night On NC during day. Alert and marie po. Up in chair, Ambulates with PT Marie po. On Oximiser in day with sats around 90% Data Vitals: 11/06/13 1930 11/06/13 1934 11/06/13203111/06/13 2135 BP: 124/65 Pulse: 82 83 75 Temp: 98.7 ??F Resp: 23 22 21 Weight: SpO2: 91% 90% Temp (30hrs) Max:98.8 ??F Intake/Output Summary (Last 24 hours) at 11/06/132201 Last data filed at 11/06/132127 Gross per 24 hour Intake 240 ml Output 1175 ml Net -935 ml My review of labs, imaging, notes and other tests is significant for Component Name 11/03/13 0452 11/02/13 0318 01/04/14 1458 WBC 11.8* 8.7 12.5* HGB 13.7 14.4 14.7 HCT 47.5 47.9 48.5 PLTCOUNT 178 149* 270 Component Name 11/05/13 0509 11/04/13 0601 11/03/13 0452 SODIUM 137 139 139 POTASSIUM 5.0 4.9 4.8 CHLORIDE 89* 89* 92* CO2 >45* >45* >45* BUN 22* 23* 26* CREATININE 0.41* 0.49* 0.55 GLUCOSE 237* 242* 250* CALCIUM 8.9 8.7 8.5 XRays: 11/04/13 pcxr: reviewed - improved with re-expansion of left lung with LLL IF/ atel remains with increase RLLF atel. CM remains with small bilat effusions. Exam EDEMA x 4 limbs has improved. General appearance: awake , cooperative, no distress Heart: regular rhythm, normal S1 and S2, without murmurs, rubs or gallops Lungs: breath sounds symmetric equal expansion with good effort, moderately decreased breath soundsbilaterally, bibasilar crackles but no wheezes Abdomen: OBESE, soft without mass, non-tender, with normal bowel sounds Extremities: no clubbing, cyanosis . Pitting edema BL LE. SOCK KNITTER. Alert and oriented x 3. .No new focal deficits , speech dysarthric Assessment and Plan 1. Zxaxa-dsgb-wnekgun respiratory failure with significant hypoxemia and hypercapnia secondary to nonusage of oxygen and noncompliance with his BiPAP. stabilised on BIPAP. [place]ola pulm eval and recc. 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 Taper O2 to maintain sats about 90% and taper steroids. Atelectasis - left lung - extensive on today's film - suspect mucus plugging but cannot r/o obstructive process. Per Pulm--Chest Physiotherapy, Mucolytics and IS at bedside., Improved expansion again. Needs BIPAP at DC but unable to arrange due to [place] medicaid and pt now living in [place]. CM D/w friend who is allowing pt to stay for few months in winter. Pt had signed himself out of a SNF in [place]. High risk for readmission due to very severe RIKKI and hypercapnia, which will worsen without BIPAP at night. WIll d/w pt and advise him to go to SNF with BIPAP ( if can be arranged in [place]) until his [place] Medicaid is active. If he refuses, then will dc home on O2 alone. 2. Diabetes, uncontrolled. On SSI. HOme med list obtained and restarted, 3. Obstructive sleep apnea. Noncompliant with CPAP with significant hypercapnia. Continue BiPAP support. See above 4. Probable Acute over chronic cor pulmonale/right heart failure with mildly elevated BNP and lower extremity edema, possible secondary pulmonary hypertension. We will check an echocardiogram 5. Lower extremity edema. Improved with diuresis. 6. History of coronary artery disease and myocardial infarction with intermediate zone troponins. Follow serial troponins at this point. Continue oral aspirin 7. History of old cerebrovascular accident. No further details available. Currently he does not show any acute focal neurological deficits. 8. Left arm bruising, soft tissue contusion. History of trauma. No gross deformities or pain. Full range of motions are noted. 9. Deep venous thrombosis prophylaxis. Subcutaneous heparin or Lovenox 10. Metabolic Encephalopathy: Due to significant hypercapnic. Improved with BIPAP. 11. Code Status--DNR DNI per pts wishes. POA aware and agrees. R RELATIONS TEACHER * Bhargav Blair RN - 11/06/2013 6:45 PM CST Assumed care of this patient at around 1230 pm, alert but drowsy most of the shift,VSS,NSR with BBBon the monitor, did not c/o any pain, was up in the chair with assist of 2, sats in 92-95 on 5L/Oxymizer, resting in bed, intake poor. R RELATIONS TEACHER * Devi Sewell RN - 11/06/2013 4:26 PM CST Spoke with Lashonda, , patient's friend, regarding wheter patient has a bipap or home oxygenat home. She reports that he may have in the past, but they just allowed him to move in with them and that he had been homeless previously. Called to report findings to HANNAH Gruber [phone] in preparation for discharge possibly tomorrow, Sunday. Paged Dr. Manzano, . Dr. Manzano returned page. I explained that patient does not have bipap and home oxygen. Dr. Manzano states that he may need to be discharge with only home oxygen because Medicaid [place] will not provide equipment. I paged Dr. Lemus and explained above. He stated that patient may be rehospitalized in a week if hedoes not go to a SNF for monitoring with bipap. He suggested talking with Lashonda on this situation. Spoke with Lashonda regarding above and she reports that Mr. Knox had been in a SNF in [place] and signed himself out AMA. His ex is currently remarried and using Mr. Knox's paycheck for herself according to Lashonda. I would just like to keep him off the streets. I would do anything I could to assist him. Ibegged that long term to keep him and they left him leave AMA. OSVALDO Castro, water project manager [facility] [phone] Pager [phone] R RELATIONS TEACHER * Oren Manzano MD - 11/06/2013 2:37 PM CST Pulmonary Progress Note Admit Date: 11/01/2013 2:34 PM Hospital Day: 5 Symptoms Pt sleeping in recliner when seen on O2 at 5L per oxymizer with sats 95%. Pt continues on BiPAP at night. Pt walked 85 ft with CP rehab today requiring only 4L per oxymizer. Data Temp (30hrs) Max:98.8 ??F Vitals: 11/06/13 1201 11/06/13 1249 11/06/13 1428 11/06/13 1433 BP: 143/89 154/98 Pulse: 64 81 79 Temp: 98.8 ??F Resp: 20 18 25 Weight: SpO2: 96% 97% Intake/Output Summary (Last 24 hours) at 11/06/13 1437 Last data filed at 11/05/131999 Gross per 24 hour Intake 240 ml Output 600 ml Net -360 ml Filed Wts: 11/01/13 2100 11/04/13 0025 Weight: 96.3 kg (212 lb 4.9 oz) 125.011 kg (275 lb 9.6 oz) Pulmonary Rehab Resting Ambulation Post Activity Heart Rate Pre Heart Rate: 72 (11/06/13 0913) Ambulation Heart Rate: 95 Post Heart Rate: 74 SaO2 Pre SaO2 (%): 94 % Ambulation SaO2: 96 Post SaO2 (%): 97 % O2 Device Resting O2 device: High Flow Nasal Cannula (Oximizer, Vapotherm, Aquinox) Ambulation O2 Device: High Flow Nasal Cannula (Oximizer, Vapotherm, Aquinox) (100% 8l oxy, weaned down to 4L 0xy with Sao2 96-98% Min. CAMPUZANO) Post O2 Device: High Flow Nasal Cannula (Oximizer, Vapotherm, Aquinox) O2 L/M Pre O2 L/M: 8 L/M Ambulation O2 L/M: 4 L/M Post O2 L/M: 4 L/M O2 % (FiO2) Type of Activity: Ambulation Ambulation Distance (ft): 85 feet (One standing then sitting rest 1/2 way. ) Exam General appearance: no distress Lungs: equal expansion with good effort, moderately decreased breath sounds bilaterally, but no wheezes or crackles. Heart: regular rhythm, normal S1 and S2, without murmurs, gallops or rubs Abdomen: soft without mass, non-tender, with normal bowel sounds, obese Extremities: 1+ bilateral lower extremity edema, no clubbing, no cyanosis Neuro: speech dysarthric,, LEWIS My review of labs, imaging, notes and other tests is significant for the following: No labs today. Cultures: Reviewed. XRays: 11/04/13 pcxr: reviewed - improved with re-expansion of left lung with LLL IF/ atel remains with increase RLLF atel. CM remains with small bilat effusions. 2D Echo: 11/03/13 - Left ventricle: - Systolic function was normal. Ejection fraction was estimated in the range of 55 % to 65 %. - There were no regional wall motion abnormalities. - Doppler parameters were consistent with abnormal left ventricular relaxation (grade 1 diastolic dysfunction). - Mitral valve: - There was mild annular calcification. - Left atrium: - The atrium was mildly dilated. LE Venous dopplers: 11/04/13 - no DVT's bilat with incidental finding of an anechoic, non-vascular soft tissue mass within the popliteal fossa of the right and left lower extremities (?Palacios cysts). Impression: Dyspnea Acute on chronic respiratory failure - hypoxemic/ hypercapnic - due to below - improving. Atelectasis - left lung - improved - suspect mucus plugging CHF - mostly Rt sided COPD with exacerbation Cor Pulmonale - acute on chronic RIKKI CAD - h/o MD and PCI H/O CVA - with dysarthria DM Morbid obesity Recommendations: 1. Continue O2 per oxymizer, weaning FiO2 and keeping O2 sats >= 89%. Will need to assess home O2 needs when ready for DC. 2. Continue BiPAP with settings of 24/6 with back up rate of 14 bpm with O2 bled qhs. Will need to see if pt can get BiPAP machine upon DC with plans for f/u [facility]. May be a problem though if pt has insurance though [place] Medicaid. 3. Continue incentive spirometry q1-2 hr w/a. 4. Mucolytics - continue Mucinex bid. 5. Bronchodilators - nebs qid with Symbicort inhaler bid. No wheezes on exam today.. 6. Change to po prednisone this am with plans to taper further as tolerated. 7. Lasix prn. Monitor lytes and UOP. 8. DVT/ PUD prophylaxis - as ordered. 9. SS Insulin coverage as needed. 10. DNR/ DNI with medical management as noted. 11. Continue ambulation with CP rehab as tolerated. Continue supportive care. Await possible placement plans. R RELATIONS TEACHER * Yen Herrera, PT - 11/06/2013 9:23 AM CST PT Daily Treatment Complete. Jp Knox: 002209: 11/06/2013 : Pt is a 52 year old male with acute on chronic respiratory failure. Pt and nursing agreeable to therapy. Subjective: Pt was sleeping upon arrival, but woke easily and was eager to participate. Pt demonstrates anxietywith mobility, fearful of sitting down post-ambulation in the wheelchair behind him. Pt states thathe is tired post-ambulation, but is agreeable to a few BLE exercises while sitting in the recliner.Pt fell back asleep by the end of the session. Patient Daily Goal: walk more Objective: Supine to Sit: Minimal Assistance (with HOB elevated) Sit to Supine: Activity Does Not Occur Sit to Stand: Minimal Assistance Stand to Sit: Minimal Assistance Distance Ambulated: 40 FEET (twice; seated rest in between) Ambulation: Assistive Device: Gait Belt;Walker-2 Wheeled Ambulation: Level of Assistance: Moderate Assistance (of 2 + w/c follow) Ambulation: Gait Deviations: Nathalia - Decreased;Increased Trunk Flexion;Step Length - Decreased Assessment: Pt continues to progress. Please refer to Filed Flowsheet PT Evaluation for further details. Patient left in recliner in reach of call light and phone. Alarm activated. RN aware. Recommendations: Continue acute care PT per POC. Pt will benefit from inpatient multidisciplinary therapies to increase independence upon discharge from acute care. If this is the last PT visit, this note serves as the discharge summary. R RELATIONS TEACHER * Sindy Pickens RN - 11/06/2013 7:20 AM CST Shift Summary: VSS, A&Ox4, pt wore Bipap during the night, very anxious, restless and impulsive, xanax administered and seem to help with anxiety. No complaints of pain. Fall precautions in place. SB/SA on the monitor. Assist x2 to BSC, pt is very unsteady on his feet. Sindy Pickens RN 11/06/2013 7:26 AM R RELATIONS TEACHER * Rhiannon Thomas RN - 11/05/2013 8:09 PM CST Shift Summary: A&OX4. C/o back pain this evening; Tylenol given. Improvement noted. O2 on high flow NC was weaned down per cardiopulmonary rehab from 8LPM to 5 LPM. SB/SR. Up to chair frequently. Fall precautions in place. Rhiannon Thomas RN 11/05/2013 8:10 PM R RELATIONS TEACHER * Oren Manzano MD - 11/05/2013 7:34 PM CST Pulmonary Progress Note Admit Date: 11/01/2013 2:34 PM Hospital Day: 4 Symptoms Pt awake and alert sitting in recliner. Pt on 4L O2 per oxymizer. He reports to having a friend whohe can stay with after DC. No c/o increase SOB. Data Temp (30hrs) Max:98.6 ??F Vitals: 11/05/13 1501 11/05/13 1505 11/05/13 1553 11/05/13 1811 BP: 162/81 152/85 Pulse: 77 80 Temp: 98.2 ??F Resp: 24 26 Weight: SpO2: Intake/Output Summary (Last 24 hours) at 11/05/13 1934 Last data filed at 11/05/13 1703 Gross per 24 hour Intake 480 ml Output 1160 ml Net -680 ml Filed Wts: 11/01/13 2100 11/04/13 0025 Weight: 96.3 kg (212 lb 4.9 oz) 125.011 kg (275 lb 9.6 oz) Pulmonary Rehab Resting Ambulation Post Activity Heart Rate Pre Heart Rate: 76 (sr) (11/05/13 0800) Ambulation Heart Rate: 91 Post Heart Rate: 77 (sr) SaO2 Pre SaO2 (%): 98 % Ambulation SaO2: 96 Post SaO2 (%): 95 % O2 Device Resting O2 device: High Flow Nasal Cannula (Oximizer, Vapotherm, Aquinox) Ambulation O2 Device: High Flow Nasal Cannula (Oximizer, Vapotherm, Aquinox) Post O2 Device: High Flow Nasal Cannula (Oximizer, Vapotherm, Aquinox) O2 L/M Pre O2 L/M: 8 L/M Ambulation O2 L/M: 6 L/M Post O2 L/M: 4 L/M O2 % (FiO2) Type of Activity: Ambulation Ambulation Distance (ft): 200 feet Exam General appearance: alert, cooperative, no distress Lungs: equal expansion with good effort, moderately decreased breath sounds bilaterally, less bibasilar crackles but no wheezes. Heart: regular rhythm, normal S1 and S2, without murmurs, gallops or rubs Abdomen: soft without mass, non-tender, with normal bowel sounds, obese Extremities: 1+ bilateral lower extremity edema, no clubbing, no cyanosis Neuro: speech dysarthric, awake and alert, LEWIS My review of labs, imaging, notes and other tests is significant for the following: . Component Name 11/05/13 0509 11/04/13 0601 11/03/13 0452 SODIUM 137 139 139 POTASSIUM 5.0 4.9 4.8 CHLORIDE 89* 89* 92* CO2 >45* >45* >45* BUN 22* 23* 26* CREATININE 0.41* 0.49* 0.55 GLUCOSE 237* 242* 250* CALCIUM 8.9 8.7 8.5 Cultures: Reviewed. XRays: 11/04/13 pcxr: reviewed - improved with re-expansion of left lung with LLL IF/ atel remains with increase RLLF atel. CM remains with small bilat effusions. 2D Echo: 11/03/13 - Left ventricle: - Systolic function was normal. Ejection fraction was estimated in the range of 55 % to 65 %. - There were no regional wall motion abnormalities. - Doppler parameters were consistent with abnormal left ventricular relaxation (grade 1 diastolic dysfunction). - Mitral valve: - There was mild annular calcification. - Left atrium: - The atrium was mildly dilated. LE Venous dopplers: 11/04/13 - no DVT's bilat with incidental finding of an anechoic, non-vascular soft tissue mass within the popliteal fossa of the right and left lower extremities (?Palacios cysts). Impression: Dyspnea Acute on chronic respiratory failure - hypoxemic/ hypercapnic - due to below - improving. Atelectasis - left lung - improved - suspect mucus plugging CHF - mostly Rt sided COPD with exacerbation Cor Pulmonale - acute on chronic RIKKI CAD - h/o MD and PCI H/O CVA - with dysarthria DM Morbid obesity Recommendations: 1. Continue O2 per oxymizer, weaning FiO2 and keeping O2 sats >= 89%. Will need to assess home O2 needs when ready for DC. 2. Continue BiPAP with settings of 24/6 with back up rate of 14 bpm with O2 bled qhs. Will need to see if pt can get BiPAP machine upon DC with plans for f/u [facility]. May be a problem though if pt has insurance though [place] Medicaid. 3. Continue incentive spirometry q1-2 hr w/a. 4. Mucolytics - continue Mucinex bid. 5. Bronchodilators - nebs qid with Symbicort inhaler bid. No wheezes. 6. Continue IV solumedrol today with plans to change to po prednisone in am with plans to taper further as tolerated. 7. Lasix prn. Monitor lytes and UOP. 8. DVT/ PUD prophylaxis - as ordered. 9. SS Insulin coverage as needed. 10. DNR/ DNI with medical management as noted. 11. Continue ambulation with CP rehab as tolerated. Continue supportive care. R RELATIONS TEACHER * Bk Lemus MD - 11/05/2013 1:37 PM CST Hospitalist Progress Note Admit Date: 11/01/2013 2:34 PM Hospital Day: 4 Clinical Course Overall patient has moderately improved since my last note. New Symptoms Staff reports: Complaint with his BIPAP at night On NC during day. Alert and marie po. Up in chair, wants to walk. Marie po. On Oximiser in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 Initial films shows cardiomegaly with PVR/ congestion with bibasilar infiltrates. Next film showed similar finding, maybe some slight increase of the atelectasis noted at the left base. Today's film shows near white-out of the left lung with atelectasis of the left lung with shift in mediastinum to the left. There has been improvement in the right lower lung field infiltrate seen as well as decrease in PVR. He remains with a small right pleural effusion and cardiomegaly is still presumed to be present. IMPRESSION: 1. Dyspnea 2. Nmedf-iv-efmpdwt respiratory failure - hypoxemic and hypercapnic. 3.Atelectasis-left lung-extensive on today's film-suspect mucus plugging, but cannot rule out obstructive process. 4. Congestive heart failure-mostly right-sided. 5. Chronic obstructive pulmonary disease with exacerbation. 6. Cor eqmynjgnn-qcocu-rm-chronic. 7. Obstructive sleep apnea. 8. Coronary artery disease-history of myocardial infarction and status post percutaneous coronary intervention. 9.History of CVA. 10.Diabetes mellitus. 11.Morbid obesity. RECOMMENDATIONS: 1. Continue O2 per Oxymizer for now during the day as tolerated. Wean to keep O2 saturations greater than or equal to 89%. 2. Would resume BiPAP with prior settings of inspiratory pressure fo 24 cm of water and expiratory pressure at 6 cm of water with back up rate of 14 breaths per minute with O2 bled in qhs. 3. Incentive spirometry q.1-2h will be initiated while awake. 4. Will also institute chest physiotherapy to left side q.i.d. 5. Begin mucolytics with Mucinex 2 tablets p.o. b.i.d. 6. Bronchodilation- continue nebulizer treatments q.i.d. Will also add Symbicort inhaler b.i.d. 7. Continue IV Solu-Medrol as ordered. To taper as clinical course improves. 8. Lasix p.r.n. May eventually need daily Lasix dose. Monitor electrolytes and urine output. 9. Await the result of 2D Echo performed today. 10.DVT/PUD prophylaxis. 11.Sliding scale insulin coverage as needed. 12.DNR/DNI with medical management as noted. 13.Followup chest x-ray in a.m. If no improvement in left lung atelectasis with conservative measures as above, patient may need bronchoscopy with inspection and clearing of the airways. Thanks for the consult. I will continue to follow along with you during his hospitalization. Oren Manzano MD PBS/MODL #: [id number] R RELATIONS TEACHER * Jose Messer PA-C - 11/01/2013 8:12 PM CST Critical Care Medicine Date of service: 11/01/2013 at 8:13 PM Initial admission date: 11/01/2013 Hospital Day: 0 Patient's primary care physician: Pcp None Physician Requesting service: Sushil Wilson MD Reason for evaluation: shortness of breath Name: Jp Knox Age: 52 y.o. Gender: male History of Present Illness 52 y/o male presented to [facility] ED for management of shortness of breath which started yesterday. Medical hx significant for home O2 dependent COPD, RIKKI, morbid obesity, tobacco abuse. The pt is currently out of town and travelling without his home O2, which he has been without since yesterday. ABG on admission demonstrates hypercapnic respiratory failure, /70. In the ED, pt's respirations became more labored despite BiPAP support and intubation was considered, however pt was adamantly refusing intubation. He verbalized to ED physician he does not want resuscitative efforts or any invasive procedures performed. Follow up AB/58. The pt's ex- is POA. She presented to ED and agrees to DNR/DNI status, BiPAP for ventilatory support acceptable. She estimates the pt smokes 2-3 PPD. The pt is seen in critical care consultation for metabolic encephalopathy, acute/chronic hypercapnic respiratory failure, COPD exacerbation, DM II. Current Medications albuterol (PROVENTIL;VENTOLIN) (5 MG/ML) 0.5% nebulizer solution 2.5 mg, Completed, Inhalation, Once ipratropium (ATROVENT) nebulizer solution 0.5 mg, Completed, Inhalation, Once labetalol (NORMODYNE; TRANDATE) injection 20 mg, Completed, Intravenous, Once methylPREDNISolone sod succ (Solu-MEDROL) injection 125 mg, Completed, Intravenous, Once morphine injection 4 mg, Completed, Intravenous, Once No prescriptions on file. Current IV Medications Continuous IV Medications Medication Status Dose Route Frequency No current outpatient prescriptions on file. Current PRN Medications PRN Medications Medication Status Dose Route Frequency ??? 0.9% NaCl injection 2-10 mL Active 2-10 mL Intracatheter PRN ??? 0.9% NaCl IV Bolus Active 10-50 mL Intravenous PRN No current outpatient prescriptions on file. Past Medical History Diagnosis Date ??? COPD (chronic obstructive pulmonary disease) ??? Asthma ??? CHF (congestive heart failure) ??? DM (diabetes mellitus) ??? CVA (cerebrovascular accident) ??? MD (myocardial infarction) ??? High cholesterol Past Surgical History Procedure Date ??? Coronary stent placement Family History No family history on file. Social History Social History ??? Marital Status: Spouse Name: N/A Number of Children: N/A ??? Years of Education: N/A Social History Main Topics ??? Smoking status: Current Every Day Smoker ??? Smokeless tobacco: Not on file ??? Alcohol Use: No ??? Drug Use: No ??? Sexually Active: Not on file Other Topics Concern ??? Not on file Social History Narrative ??? No narrative on file Review of Systems Unable to obtain ROS as patient is on BiPAP for ventilatory support Vitals Temp (24hrs) Max:97.7 ??F Patient Vitals in the past 4 hrs: 11/01/13 1830, BP:180/112 mmHg, Pulse:99 , SpO2:89 % 11/01/13 1817, Pulse:99 , SpO2:90 % 11/01/13 1800, BP:170/111 mmHg, Pulse:97 , Resp:12 , SpO2:88 % 11/01/13 1730, BP:149/102 mmHg, Pulse:98 11/01/13 1710, Pulse:97 , SpO2:93 % 11/01/13 1630, BP:182/166 mmHg, Pulse:89 , Resp:24 , SpO2:84 % I &Os No intake or output data in the 24 hours ending 11/01/132012 Results Component Name 11/01/13 1458 SODIUM 138 POTASSIUM 4.7 CHLORIDE 95* CO2 39* BUN 35* CREATININE 1.09 GLUCOSE 415* CALCIUM 8.7 ALKPHOS 130* ALBUMIN 3.1* ALT 58 AST 42* TBIL 0.6 TPROT 6.5 MAGMGDL -- CALCIUMION -- PHOS -- Component Name 11/01/13 1458 WBC 12.5* HGB 14.7 HCT 48.5 PLTCOUNT 270 Component Name 11/01/13 1458 TROPONIN 0.084* CK -- Component Name 11/01/13 1459 BNP 199* Component Name 11/01/13 1752 11/01/13 1558 11/01/13 1458 PHART 7.18* 7.30* 7.26* [id number] 126.8* 94.6* 95.2* PO2ART 58* 124* 70* [id number] 78* 98 89* BEART 11* 14* 10* FIO2 45 45 -- Physical Exam CONST: Sitting up in bed on BiPAP SHEENT: Normocephalic, PERRL PULM: Diminished air movement bilaterally c wheeze, nonlabored CARDIAC: S1S2 RRR ABD: Obese, soft, NT +BS : Deferred MS: Spontaneously moves all extremities, asbestos coverer symmetric bilaterally NEURO: Confused, responsive, asbestos coverer bilaterally to command Micro: BC (11/01/13) pending; Urine (11/01/13) pending; Rad: CXR (11/01/13) Per my review: Dependent interstitial edema, small bilateral effusions Assessment and Plan NEURO: Metabolic encephalopathy Hx CVA, bipolar disorder PULM: Acute/chronic respiratory failure, COPD exacerbation, vascular congestion BNP 189 Hx RIKKI, morbid obesity, tobacco abuse BiPAP ventilatory support 10/03, 55% FiO2 Solu-Medrol, Duoneb Will give Lasix 20mg IVP for vascular congestion CARD: HTN - BP 200/100 -> Labetalol 20mg IVP once Troponin 0.08 Hx CAD s/p stent, MD, CHF, dyslipidemia Follow serial troponins r/o myocardial injury ASA GI: Clear liquids RENAL: Cr 1.1 +UOP ID: COPD exacerbation WBC 12.5, afebrile HEME: L arm contusion PIV ENDO: Uncontrolled DM II - serum GLU 415 Repeat FSG @ bedside 307 mg/dl -> will start on intensive SSI and monitor FSG Ulcer: Pepcid DVT: Lovenox Thank you Sushil Wilson MD for involving [facility] in the care of your patient. MPM 8 R RELATIONS TEACHER * Marbella Ordaz MD - 11/01/2013 8:12 PM CST Plan as above. Patient presently on BiPAP with IPAP of 22 and EPAP of 6 and 65% with returning TVs of 190 to 350. Lungs have decreased BS throughout. He is receiving respiratory treatments and IV lasix. CXR with PVR. BP now 151/89 after labetolol 20 mg IV times 2. Repeat BMP, Mg, and phos pending. POA arrived and ER spoke with that person, and patient DNR/DNI but BiPAP OK R RELATIONS TEACHER documented in this encounter ED Notes * Monica Weaver RN - 11/01/2013 7:59 PM CST Pts POA ex her at bedside and being updated to Dr Wilson. Faxed released paperwork to [facility] to obtain POA paperwork. POA updated to pts condition and she informed me that the pts POApaperwork states that he is a DNR per his wishes. R RELATIONS TEACHER * Monica Weaver RN - 11/01/2013 7:02 PM CST Pts ex Maggy called the ER asking if the pt was ok, pt told me it was ok to give her information earlier. I explained to her that he is not doing well and that we need to speak with someone inhis family if she has their information. She's explained that she would call her ride and come in to see him sammie and that she is his POA. Notified Dr Wilson and the discharge coordinator. R RELATIONS TEACHER * Liz Colon RN - 11/01/2013 6:52 PM CST Spoke with risk management (Zuly) regarding this patient. R RELATIONS TEACHER * Monica Weaver RN - 11/01/2013 6:32 PM CST [place] at bedside. R RELATIONS TEACHER * Monica Weaver RN - 11/01/2013 6:30 PM CST bench tool maker contacted pts ex , her answered the phone and would not let the ex talk with us. When explained that we only wanted to get in contact with some of his family the still would not let her speak with us and would not give us any information on the pt. Notified Dr Wilson. R RELATIONS TEACHER * Monica Weaver RN - 11/01/2013 6:10 PM CST Pt gave me his ex 's number, called her and reached a voice mail. Left a message, will try again. Called the salesperson household appliances and notified the discharge coordinator. R RELATIONS TEACHER * Monica Weaver RN - 11/01/2013 5:44 PM CST MD at bedside. Pt stating that he refusing to be intubated and any life saving measures. Stating that he does not want any family called and refusing to have anyone here. MD and myself explained to pt the situation that his breathing is getting worse, skin color worse (pale and cyanotic), O2 sats dropping even though he is on the Bipap. Pts mental status intact. Still refusing tx and when explained to him that he will be made a DNR by the request he is making, pts agrees and states no CPR or intubation is what he wants. Respiratory at beside drawing ABG. R RELATIONS TEACHER * Monica Weaver RN - 11/01/2013 5:13 PM CST Patient is resting comfortably. Respiratory at bedside. VSS, updated to care plan. Will continue tomonitor. R RELATIONS TEACHER * Monica Weaver RN - 11/01/2013 4:36 PM CST Pt yelling and cussing that his back hurts and he wants to take the bipap mask off. Explained to the pt that cussing was not Got to be allowed and that I would get him some pain medication for his back. Further explained why he needed the bipap mask on and that i would get him some mouth swabs for comfort if that would help him. He complied and left the mask on. Notified Dr Wilson. R RELATIONS TEACHER * Monica Weaver RN - 11/01/2013 4:15 PM CST Notified MD of pts elevated bp and obtained meds for bossman. Pt resting quietly, other VSS. R RELATIONS TEACHER * Monica Weaver RN - 11/01/2013 3:39 PM CST Respiratory at bedside giving pt treatment. R RELATIONS TEACHER * Monica Weaver RN - 11/01/2013 3:05 PM CST Respiratory therapy at bedside doing ABG and placing pt on Bipap. R RELATIONS TEACHER * Monica Weaver RN - 11/01/2013 2:50 PM CST MD at bedside. Pt presents to ED with c/o increased SOB that worsened since yesterday. Pt in respiratory distress, respiratory therapy called to bedside and orders put in for Bipap. Hx COPD and CHF. Placed on 4L NC, sating 88-92%, breathing labored and +cough. R RELATIONS TEACHER * Sushil Wilson MD - 11/01/2013 2:39 PM CST Provider contact with the patient: 11/01/2013 14:39 Jp Knox [id number] [facility] History Chief Complaint Patient presents with ??? Shortness of Breath Pt c/o increased SOB that worsened since yesterday. Hx COPD. The above narrative is pulled from the triage note. It is not from the author of this note. HPI Patient information was obtained from patient. History/ROS/Exam limitations: very limited historian; respiratory distress. 2:39 PM Jp Knox, a 52 y.o. male smoker with a past medical history that includes--CHF, COPD, CAD s/p MD, s/p CVA, DM, hyperlipidemia--presents to the ER c/o shortness of breath, constant since onset this morning. Patient from out of town, travelling without his supplemental oxygen. States his doctor won't give him any more meds. Admits to h/o BiPAP assistance. Declines intubation. Admits he is supposed to be on supplemental oxygen all the time (4Lpm), but has been off since yesterday. Denies chest pain, injury/trauma/fall. PCP: Pcp None Past Medical History Diagnosis Date ??? COPD (chronic obstructive pulmonary disease) ??? Asthma ??? CHF (congestive heart failure) ??? DM (diabetes mellitus) ??? CVA (cerebrovascular accident) ??? MD (myocardial infarction) ??? High cholesterol Past Surgical History Procedure Date ??? Coronary stent placement No family history on file. History Social History ??? Marital Status: Spouse Name: N/A Number of Children: N/A ??? Years of Education: N/A Occupational History ??? Not on file. Social History Main Topics ??? Smoking status: Current Every Day Smoker ??? Smokeless tobacco: Not on file ??? Alcohol Use: No ??? Drug Use: No ??? Sexually Active: Not on file Other Topics Concern ??? Not on file Social History Narrative ??? No narrative on file Review of Systems Review of Systems Unable to perform ROS: severe respiratory distress Respiratory: Positive for shortness of breath. Cardiovascular: Negative for chest pain. Physical Exam Patient Vitals for the past 24 hrs: Temp Pulse Resp BP SpO2 O2 % (FiO2) 11/01/13 1541 - 121 24 - - - 11/01/13 1530 - - 9 152/121 mmHg 96 % - 11/01/13 1501 - 121 - - 94 % 45 % 11/01/13 1500 - 124 37 171/127 mmHg 94 % - 11/01/13 1443 - - - 188/137 mmHg 63 % - 11/01/13 1441 97.7 ??F 130 30 - 70 % - Physical Exam Nursing note and vitals reviewed. Constitutional: He is oriented to person, place, and time. He appears distressed. HENT: Head: Normocephalic and atraumatic. Eyes: Conjunctivae normal are normal. Pupils are equal, round, and reactive to light. Right eye exhibits no discharge. Left eye exhibits no discharge. Neck: Normal range of motion. Neck supple. No tracheal deviation present. Cardiovascular: Regular rhythm and normal heart sounds. Tachycardia in 130's. No murmurs Pulmonary/Chest: Accessory muscle usage present. Tachypnea noted. He is in respiratory distress. %O2 sats in 60's on RA. Very Diminished breath sounds bilaterally. Using accessory muscles of breathing. Speaking in 2-3 word sentences. Decreased air movement bilaterally. Abdominal: Soft. Bowel sounds are normal. He exhibits no distension. There is no tenderness. There is no rebound and no guarding. Musculoskeletal: Normal range of motion. Neurological: He is alert and oriented to person, place, and time. No focal neurologic deficits. Skin: Skin is warm and dry. Medications No current outpatient prescriptions on file. Procedures Procedures EKG Interpretation Clinical Impression: non-specific EKG. Rhythm: sinus tachycardia. Rate: tachycardic. Heart rate:130. Blocks: bifasicular. ST Segment Comments: Rate dependent ST changes There was not a previous EKG available for comparison. EKG date completed: 11/01/2013 EKG time completed:1428 ECG Rhythm Interpretation Lab Interpretation Oxygen Saturation Interpretation The oxygen saturation level is: <80%. The patient was on Room Air for the saturation measurement. Measurement frequency: Spot Check. Oxygen saturation interpretation is Normal. Intervention(s) used: Oxygen Administration, Airway Administration and Patient Observed. Results for orders placed during the hospital encounter of 11/01/13 BLOOD GASES ARTERIAL POCT Component Value Range COMMENT Notification Only - See Separate Report CBC W AUTO DIFFERENTIAL Component Value Range WBC 12.5 (*) 4.4-10.7 x10^9/L RBC 4.84 3.80-5.40 x10^12/L Hgb 14.7 12.0-17.6 gm/dL HCT 48.5 35.2-51.7 % MCV 100.2 (*) 80.7-98.3 fl MCH 30.4 26.7-34.0 pg MCHC 30.3 (*) 30.8-35.9 gm/dL Plt Ct 270 153-416 x10^9/L RDW-CV 16.3 (*) 12.1-14.9 % MPV 10.5 9.4-12.9 fl Neutro 72.2 44.0-73.0 % Lymph 14.4 (*) 20.0-43.0 % [place] 12.0 5.0-13.0 % Eos 0.5 0.0-6.0 % Baso 0.1 0.0-2.0 % Immature Grans 0.8 0-1 % Neutro Abs 9.07 (*) 2.01-7.14 x10^9/L Lymph Abs 1.80 1.07-3.94 x10^9/L [place] Abs 1.50 (*) 0.26-1.07 x10^9/L Eosin Abs 0.06 0-0.47 x10^9/L Baso Abs 0.01 0-0.08 x10^9/L Immature Grans Abs 0.10 (*) 0.00-0.06 x10^9/L COMPREHENSIVE METABOLIC PANEL Component Value Range Glucose 415 (*) 74-106 mg/dL Sodium 138 136-145 mmol/L Potassium 4.7 3.5-5.1 mmol/L Chloride 95 (*) 98-107 mmol/L CO2 39 (*) 22-31 mmol/L Calcium 8.7 8.5-10.1 mg/dL Anion Gap 4 (*) 5-15 mmol/L BUN 35 (*) 7-21 mg/dL Creatinine 1.09 0.50-1.30 mg/dL eGFR by MDRD >60 >60 mL/min/1.73m2 eGFR by MDRD AFR AMER >60 >60 mL/min/1.73m2 Alk Phos 130 (*) 38-126 U/L ALT/SGPT 58 12-78 U/L AST/SGOT 42 (*) 5-40 U/L Protein Total 6.5 6.4-8.2 gm/dL Albumin 3.1 (*) 3.4-5.0 gm/dL Bili Total 0.6 0.2-1.0 mg/dL TROPONIN I Component Value Range Troponin I 0.084 (*) 0.000-0.049 ng/mL B-TYPE NATRIURETIC PEPTIDE Component Value Range BNP 199 (*) 0-100 pg/mL BLOOD GASES ART (ISTAT) Component Value Range pH Arterial 7.26 (*) 7.35-7.45 pH PCO2 Arterial 95.2 (*) 32-43 mmHg PO2 Arterial 70 (*) 72-104 mmHg HCO3 Arterial 42.4 (*) 22-26 mmol/L BE Arterial 10 (*) -2-2 mmol/L TCO2 Arterial 45 (*) 22-29 mmol/L O2 Sat Arterial 89 (*) 90-100 % Site R Radial Edy's Test NA Delivery System Nasal Can Sample ISTAT ARTERI PT ISTAT 76747 LPM ISTAT 4 Device Chief Medical Officer ID [id number] BLOOD GASES ART (ISTAT) Component Value Range pH Arterial 7.30 (*) 7.35-7.45 pH PCO2 Arterial 94.6 (*) 32-43 mmHg PO2 Arterial 124 (*) 72-104 mmHg HCO3 Arterial 46.3 (*) 22-26 mmol/L BE Arterial 14 (*) -2-2 mmol/L TCO2 Arterial 49 (*) 22-29 mmol/L O2 Sat Arterial 98 90-100 % RR 20 Site R Radial Edy's Test NA Delivery System BiPAP FI O2 % 45 Sample ISTAT ARTERI PT ISTAT 22922 EPAP 6 IPAP 16 Device Chief Medical Officer ID [id number] BLOOD GASES ART (ISTAT) Component Value Range pH Arterial 7.18 (*) 7.35-7.45 pH PCO2 Arterial 126.8 (*) 32-43 mmHg PO2 Arterial 58 (*) 72-104 mmHg HCO3 Arterial 46.7 (*) 22-26 mmol/L BE Arterial 11 (*) -2-2 mmol/L TCO2 Arterial >50 (*) 22-29 mmol/L O2 Sat Arterial 78 (*) 90-100 % RR 20 Site R Radial Edy's Test POS/PASS Delivery System BiPAP FI O2 % 45 Sample ISTAT ARTERI PT ISTAT 07374 EPAP 6 IPAP 18 Device Chief Medical Officer ID [id number] XR CHEST 1VW PORTABLE Final Result: Findings: There is cardiomegaly with mid and lower lung zone interstitial edema. There are small bilateral pleural effusions. There is no pneumothorax. Progress Notes Initial plan: Start BiPAP; Administer solumedrol IV, duoneb tx; check ABG, EKG, CXR, BNP, troponin,WBC, H&H, electrolytes, LFTs, renal function 1449: Recheck -- breathing improved, still tachypneic, O2 sat improved to 88% on 4L per nasal canula. RT at bedside obtaining ABG. 1551: Pt rechecked and updated with ED findings. Pt responding to treatment; requesting to stay in the hospital. Paging IPC. 1605: All pertinent aspects of case discussed with NERI Lewis, taking call for IPC. Agrees with plan and accepts admission. Assessment/Plan: Based on pt's history of [id number]-st-dkfikur SOB and physical exam, supplemental oxygen & duoneb tx administered. ED testing/imaging significant for pH 7.26, pCO2 95, pO2 70, CXR, EKG (sinus tach); Additional treatment included solumedrol IV. My clinical impression is respiratory d istress, hypoxia, COPD. Case was d/w hospitalist. Pt will be admitted to [facility] for further evaluationand tx. 1739: Dr. Lemus ([facility]) at bedside evaluating patient. All pertinent aspects of case discussed. Askedby Dr. Lemus to re-evaluation patient. Thinks pt better suited for ICU. Pt rechecked -- appears more distressed again while on BiPAP, now diaphoretic and confused, O2 sat 84%. Verbal orders communicated to RN for repeat ABG. Considering Intubation for respiratory failure despite BiPAP. RN update -- pt admits to h/o Bipolar disorder. 1743: RN update -- patient adamantly refusing intubation at this time. 1744: Recheck -- Jp Knox states he does not want any resuscitation efforts done, refusing intubation. I have explained in depth with the patient the risks/benefits of intubation. He is A&Ox3 and is able to verbalize in his own words that he does not want any invasive procedures and wants code status to be DNR. Pt has no family in the ER and has not contacted them. He declines my offerto contact family members and help him with this decision. Pt has declared himself private status patient and does not want any family to know that he is here in the ER. After continued discussion, pt agreeable to allowing nurse to call his sister and inform her of situation. 1746: RT at bedside drawing repeat ABG. 1759: Arterial Blood Gas result: pH: 7.18; pCO2 126.8; pO2 58; HCO3 46.7, O2 Sat 78% on BiPAP FiO2 45%. 1800: Pt rechecked and updated with ED findings and my strong recommendation for intubation. BP 170/111, HR 97, O2 sat 90% on BiPAP. 1802: RN was able to contact pt's sister, but no answer, had to leave voice message. 1816: Dr. Lemus ([facility]) updated. Feels patient too unstable for step down unit, needs ICU admission. 1820: RN update -- unable to contact family. Called phone number provided by the patient, but happens to be pt's ex-'s new , who states that the patient's ex- refuses to get involved. ER CSN has consulted salesperson household appliances, who states that as such, must follow patient's wishes. 1830: All pertinent aspects of case discussed with Grievance And Appeals Coordinator, who is agreeable with continuing based on patient's wishes. 1832: Pastoral care at bedside with patient. 7:30 PM: As of 7:30 PM, pt is still on BiPAP. POA is en route. 7:57 PM: POA - ex- - is present in ED. Pt is normally on sleep apnea and home oxygen. I have informed POA about BiPAP and O2 condition in patient. POA states pt should be DNR and should not be intubated. She states he can stay on BiPAP. PATIENT RECEIVED ONE-ON-ONE CRITICAL CARE TO ADDRESS POTENTIAL LIFE OR LIMB THREATS (excluding procedures or family discussion): 60 minutes. Care is transferred to the admitting physician at this time. The patient understand(s) and agree(s) with the plan. Interim orders written by undersigned. ED Course Medical Decision Making I have reviewed the: Previous Chart (none available), Nursing Notes, Vitals and Outside Records (none available). I have interpreted the following results: Labs, 12 Lead EKG, X-Ray and Oxygen Saturation. The total time providing critical care (excluding time spent for procedures) was: 60 minutes minutes. I have discussed the case with Grievance And Appeals Coordinator, Admitting Physician, Family/Caregiver (attempted) and Hospitalist. Orders Placed This Encounter ??? XR CHEST 1VW PORTABLE ??? BLOOD GASES ARTERIAL POCT ??? CBC W AUTO DIFFERENTIAL ??? COMPREHENSIVE METABOLIC PANEL ??? TROPONIN I ??? TROPONIN I ??? TROPONIN I ??? B-TYPE NATRIURETIC PEPTIDE ??? BLOOD GASES ART ??? BIPAP ??? BIPAP ??? PULSE OXIMETRY, CONTINUOUS ??? methylPREDNISolone sod succ (Solu-MEDROL) injection 125 mg ??? albuterol (PROVENTIL;VENTOLIN) (5 MG/ML) 0.5% nebulizer solution 2.5 mg ??? ipratropium (ATROVENT) nebulizer solution 0.5 mg ??? 0.9% NaCl injection 2-10 mL ??? 0.9% NaCl IV Bolus ??? labetalol (NORMODYNE;TRANDATE) injection ADS Med ??? labetalol (NORMODYNE; TRANDATE) injection 20 mg ??? morphine injection 4 mg ??? ondansetron (ZOFRAN) injection 4 mg Diagnosis: Final diagnoses: SOB (shortness of breath) (Primary) Respiratory distress Hypoxia COPD (chronic obstructive pulmonary disease) Disposition: Admit to ICU I have reviewed the information recorded by the scribe and agree with its accuracy and contents--Dr. Wilson11/01/2013 7:41 PM Transcribed by Hugo Durand--acting scribe on behalf of Dr. Wilson 11/01/2013 3:53 PM Transcribed by Demetri Fisher acting scribe on behalf of Dr. Wilson 11/01/2013 7:41 PM R RELATIONS TEACHER documented in this encounter Miscellaneous Notes * Miscellaneous Scans - Document, Scanned - 11/15/2013 9:39 PM CST R RELATIONS TEACHER * Miscellaneous Scans - Document, Scanned - 11/15/2013 9:39 PM CST R RELATIONS TEACHER * Miscellaneous Scans - Document, Scanned - 11/15/2013 9:39 PM CST R RELATIONS TEACHER documented in this encounter Plan of Treatment Upcoming Encounters Date Type Department Care Team (Late st Contact Info) Description 04/21/2025 9:30 AM CDT Office Visit [facility] - Dermatology [address] [place] [address] Raghavendra Barajas MD [address] [facility] [place] [address] Scheduled Orders Name Type Priority Associated Diagnoses Order Schedule BLOOD GASES ART (ISTAT) POCT No Acknowledgement Routine ONCE for 1 Occurrences starting 11/01/2013 until 11/01/2013 BLOOD GASES ART (ISTAT) POCT No Acknowledgement Routine ONCE for 1 Occurrences starting 11/03/2013 until 11/03/2013 BLOOD GASES ART (ISTAT) POCT No Acknowledgement STAT ONCE for 1 Occurrences starting 11/07/2013 until 11/07/2013 GLUCOSE - POINT OF CARE POCT No Acknowledgement Routine ONCE for 1 Occurrences starting 11/07/2013 until 11/07/2013 GLUCOSE - POINT OF CARE POCT No Acknowledgement Routine ONCE for 1 Occurrences starting 11/07/2013 until 11/07/2013 GLUCOSE - POINT OF CARE POCT No Acknowledgement Routine ONCE for 1 Occurrences starting 11/08/2013 until 11/08/2013 GLUCOSE - POINT OF CARE POCT No Acknowledgement Routine ONCE for 1 Occurrences starting 11/08/2013 until 11/08/2013 GLUCOSE - POINT OF CARE POCT No Acknowledgement Routine ONCE for 1 Occurrences starting 11/11/2013 until 11/11/2013 EXTUBATION Respiratory Care Routine ONCE for 1 Occurrences starting 11/12/2013 until 11/12/2013 GLUCOSE - POINT OF CARE POCT No Acknowledgement Routine ONCE for 1 Occurrences starting 11/13/2013 until 11/13/2013 GLUCOSE - POINT OF CARE POCT No Acknowledgement Routine ONCE for 1 Occurrences starting 11/13/2013 until 11/13/2013 GLUCOSE - POINT OF CARE POCT No Acknowledgement Routine ONCE for 1 Occurrences starting 11/14/2013 until 11/14/2013 PT EVAL AND TREAT PT Routine SOB (shortness of breath) Respiratory distress Hypoxia COPD (chronic obstructive pulmonary disease) (HCC) Chronic respiratory failure (HCC) RIKKI (obstructive sleep apnea) Atelectasis Acute respiratory failure (HCC) Ordered: 11/14/2013 OT EVAL AND TREAT OT Routine SOB (shortness of breath) Respiratory distress Hypoxia COPD (chronic obstructive pulmonary disease) (HCC) Chronic respiratory failure (HCC) RIKKI (obstructive sleep apnea) Atelectasis Acute respiratory failure (HCC) Ordered: 11/14/2013 documented as of this encounter Procedures Procedure Name Priority Date/Time Associated Diagnosis Comments CARDIAC RHYTHM STRIP ORDER 11/15/2013 9:39 PM LABOR RELATIONS TEACHER LAB RESULTS ORDER 11/15/2013 9:3 9 PM LABOR RELATIONS TEACHER GLUCOSE - POINT OF CARE Routine 11/14/2013 11:52 AM LABOR RELATIONS TEACHER GLUCOSE - POINT OF CARE Routine 11/14/2013 5:44 AM LABOR RELATIONS TEACHER HEMOGLOBIN A1C AM Draw 11/14/2013 3:59 AM LABOR RELATIONS TEACHER GLUCOSE - POINT OF CARE Routine 11/13/2013 3:57 PM LABOR RELATIONS TEACHER CBC W AUTO DIFFERENTIAL AM Draw 11/13/2013 6:09 AM LABOR RELATIONS TEACHER BASIC METABOLIC PANEL (CALCIUM TOTAL) AM Draw 11/13/2013 6:09 AM LABOR RELATIONS TEACHER XR CHEST 1VW PORTABLE Routine 11/13/2013 6:00 AM LABOR RELATIONS TEACHER Acute respiratory failure (HCC) GLUCOSE - POINT OF CARE Routine 11/13/2013 5:53 AM LABOR RELATIONS TEACHER GLUCOSE - POINT OF CARE Routine 11/12/2013 11:57 PM LABOR RELATIONS TEACHER BLOOD GASES ARTERIAL POCT RT Routine 11/12/2013 6:20 PM LABOR RELATIONS TEACHER BLOOD GASES ART (ISTAT) Routine 11/12/2013 11:52 AM LABOR RELATIONS TEACHER GLUCOSE - POINT OF CARE Routine 11/12/2013 11:49 AM LABOR RELATIONS TEACHER XR CHEST 1VW PORTABLE Routine 11/12/2013 7:00 AM LABOR RELATIONS TEACHER Acute respiratory failure (HCC) GLUCOSE - POINT OF CARE Routine 11/12/2013 6:34 AM LABOR RELATIONS TEACHER COMPREHENSIVE METABOLIC PANEL AM Draw 11/12/2013 5:32 AM LABOR RELATIONS TEACHER CBC W AUTO DIFFERENTIAL AM Draw 11/12/2013 4:23 AM LABOR RELATIONS TEACHER DIFFERENTIAL MANUAL Routine 11/12/2013 4 :23 AM LABOR RELATIONS TEACHER GLUCOSE - POINT OF CARE Routine 11/12/2013 1:07 AM LABOR RELATIONS TEACHER GLUCOSE - POINT OF CARE Routine 11/11/2013 5:42 PM LABOR RELATIONS TEACHER GLUCOSE - POINT OF CARE Routine 11/11/2013 11:38 AM LABOR RELATIONS TEACHER XR CHEST 1VW PORTABLE Routine 11/11/2013 6:00 AM LABOR RELATIONS TEACHER Respiratory distress COPD (chronic obstructive pulmonary disease) (HCC) Atelectasis GLUCOSE - POINT OF CARE Routine 11/11/2013 5:51 AM LABOR RELATIONS TEACHER CBC W AUTO DIFFERENTIAL AM Draw 11/11/2013 4:00 AM LABOR RELATIONS TEACHER COMPREHENSIVE METABOLIC PANEL AM Draw 11/11/2013 4:00 AM LABOR RELATIONS TEACHER BLOOD GASES ARTERIAL POCT RT Routine 11/11/2013 3:42 AM LABOR RELATIONS TEACHER BLOOD GASES ART (ISTAT) Routine 11/11/2013 3:31 AM LABOR RELATIONS TEACHER BLOOD GASES ARTERIAL POCT STAT 11/10/2013 10:31 PM LABOR RELATIONS TEACHER GLUCOSE - POINT OF CARE Routine 11/10/2013 5:43 PM LABOR RELATIONS TEACHER VANCOMYCIN LEVEL TROUGH Timed 11/10/2013 3:29 PM LABOR RELATIONS TEACHER GLUCOSE - POINT OF CARE Routine 11/10/2013 11:57 AM LABOR RELATIONS TEACHER XR CHEST 1VW PORTABLE STAT 11/10/2013 11:16 AM LABOR RELATIONS TEACHER Hypoxia COPD (chronic obstructive pulmonary disease) (HCC) Atelectasis GLUCOSE - POINT OF CARE Routine 11/10/2013 5:42 AM LABOR RELATIONS TEACHER CBC W AUTO DIFFERENTIAL AM Draw 11/10/2013 2:29 AM LABOR RELATIONS TEACHER BASIC METABOLIC PANEL (CALCIUM TOTAL) AM Draw 11/10/2013 2:29 AM LABOR RELATIONS TEACHER MAGNESIUM BLOOD AM Draw 11/10/2013 2:29 AM LABOR RELATIONS TEACHER GLUCOSE - POINT OF CARE Routine 11/09/2013 11:40 PM LABOR RELATIONS TEACHER GLUCOSE - POINT OF CARE Routine 11/09/2013 5:28 PM LABOR RELATIONS TEACHER GLUCOSE - POINT OF CARE Routine 11/09/2013 11:36 AM LABOR RELATIONS TEACHER XR CHEST 1VW PORTABLE STAT 11/09/2013 8:25 AM LABOR RELATIONS TEACHER SOB (shortness of breath) Respiratory distress GLUCOSE - POINT OF CARE Routine 11/09/2013 5:27 AM LABOR RELATIONS TEACHER BASIC METABOLIC PANEL (CALCIUM TOTAL) Routine 11/09/2013 4:29 AM LABOR RELATIONS TEACHER SOB (shortness of breath) Respiratory distress CBC W AUTO DIFFERENTIAL Routine 11/09/2013 3:49 AM LABOR RELATIONS TEACHER SOB (shortness of breath) Respiratory distress GLUCOSE - POINT OF CARE Routine 11/08/2013 11:43 [address] CHEST WO CONTRAST STAT 11/08/2013 4:45 PM LABOR RELATIONS TEACHER SOB (shortness of breath) GLUCOSE - POINT OF CARE Routine 11/08/2013 4:06 PM LABOR RELATIONS TEACHER XR CHEST 1VW STAT 11/08/2013 3:15 PM LABOR RELATIONS TEACHER SOB (shortness of breath) CULTURE SPUTUM+GRAM STAIN Routine 11/08/2013 3:00 PM LABOR RELATIONS TEACHER BRONCHOSCOPY FLEXIBLE Routine 11/08/2013 2:56 PM LABOR RELATIONS TEACHER BLOOD GASES ARTERIAL POCT RT Routine 11/08/2013 2:43 PM LABOR RELATIONS TEACHER CULTURE VRE Routine 11/08/2013 2:23 PM LABOR RELATIONS TEACHER CULTURE MRSA Routine 11/08/2013 2:23 PM LABOR RELATIONS TEACHER BLOOD GASES ARTERIAL POCT RT Routine 11/08/2013 12:44 PM LABOR RELATIONS TEACHER XR CHEST 1VW PORTABLE STAT 11/08/2013 12:19 PM LABOR RELATIONS TEACHER SOB (shortness of breath) BLOOD GASES ART (ISTAT) Routine 11/08/2013 12:16 PM LABOR RELATIONS TEACHER EKG 12-LEAD Routine 11/08/2013 11:21 AM LABOR RELATIONS TEACHER SOB (shortness of breath) XR CHEST 1VW PORTABLE Routine 11/08/2013 8:22 AM LABOR RELATIONS TEACHER COPD (chronic obstructive pulmonary disease) (HCC) Chronic respiratory failure (HCC) Atelectasis BLOOD GASES ART (ISTAT) Routine 11/08/2013 7:40 AM LABOR RELATIONS TEACHER BLOOD GASES ART (ISTAT) Routine 11/08/2013 7:21 AM LABOR RELATIONS TEACHER CBC W AUTO DIFFERENTIAL AM Draw 11/08/2013 3:48 AM LABOR RELATIONS TEACHER BASIC METABOLIC PANEL (CALCIUM TOTAL) AM Draw 11/08/2013 3:48 AM LABOR RELATIONS TEACHER GLUCOSE - POINT OF CARE Routine 11/07/2013 3:54 PM LABOR RELATIONS TEACHER BLOOD GAS ART+LYTES+H&H POCT NOTIFICATION RT Routine 11/07/2013 3:24 PM LABOR RELATIONS TEACHER GLUCOSE - POINT OF CARE Routine 11/07/2013 12:31 PM LABOR RELATIONS TEACHER XR CHEST 1VW STAT 11/07/2013 10:26 AM LABOR RELATIONS TEACHER SOB (shortness of breath) Respiratory distress COPD (chronic obstructive pulmonary disease) (HCC) Chronic respiratory failure (HCC) BLOOD GASES ART + LYTES GLU CA+ HH (ISTAT) Routine 11/07/2013 10:21 AM LABOR RELATIONS TEACHER GLUCOSE - POINT OF CARE Routine 11/07/2013 8:11 AM LABOR RELATIONS TEACHER GLUCOSE - POINT OF CARE Routine 11/06/2013 9:18 PM LABOR RELATIONS TEACHER GLUCOSE - POINT OF CARE Routine 11/06/2013 4:58 PM LABOR RELATIONS TEACHER GLUCOSE - POINT OF CARE Routine 11/06/2013 1:05 PM LABOR RELATIONS TEACHER GLUCOSE - POINT OF CARE Routine 11/05/2013 8:26 PM LABOR RELATIONS TEACHER GLUCOSE - POINT OF CARE Routine 11/05/2013 4:57 PM LABOR RELATIONS TEACHER GLUCOSE - POINT OF CARE Routine 11/05/2013 12:01 PM LABOR RELATIONS TEACHER GLUCOSE - POINT OF CARE Routine 11/05/2013 8:27 AM LABOR RELATIONS TEACHER GLUCOSE - POINT OF CARE Routine 11/05/2013 5:54 AM LABOR RELATIONS TEACHER BASIC METABOLIC PANEL (CALCIUM TOTAL) AM Draw 11/05/2013 5:09 AM LABOR RELATIONS TEACHER GLUCOSE - POINT OF CARE Routine 11/04/2013 9:15 PM LABOR RELATIONS TEACHER GLUCOSE - POINT OF CARE Routine 11/04/2013 3:57 PM LABOR RELATIONS TEACHER VAS BILATERAL VENOUS DUPLEX LE Routine 11/04/2013 2:28 PM LABOR RELATIONS TEACHER Chronic respiratory failure (HCC) RIKKI (obstructive sleep apnea) GLUCOSE - POINT OF CARE Routine 11/04/2013 12:58 PM LABOR RELATIONS TEACHER ECHOCARDIOGRAM 2D WITH DOPPLER Routine 11/04/2013 11:48 AM LABOR RELATIONS TEACHER SOB (shortness of breath) Chronic respiratory failure (HCC) RIKKI (obstructive sleep apnea) PT EVAL AND TREAT Routine 11/04/2013 11: 25 AM LABOR RELATIONS TEACHER XR CHEST 1VW PORTABLE Routine 11/04/2013 9:33 AM LABOR RELATIONS TEACHER COPD (chronic obstructive pulmonary disease) (HCC) Chronic respiratory failure (HCC) Atelectasis GLUCOSE - POINT OF CARE Routine 11/04/2013 7:58 AM LABOR RELATIONS TEACHER RENAL FUNCTION PANEL AM Draw 11/04/2013 6:01 AM LABOR RELATIONS TEACHER VITAMIN B12 AM Draw 11/04/2013 6:01 AM LABOR RELATIONS TEACHER GLUCOSE - POINT OF CARE Routine 11/03/2013 9:15 PM LABOR RELATIONS TEACHER GLUCOSE - POINT OF CARE Routine 11/03/2013 6:31 PM LABOR RELATIONS TEACHER GLUCOSE - POINT OF CARE Routine 11/03/2013 11:16 AM LABOR RELATIONS TEACHER XR CHEST 1VW PORTABLE Routine 11/03/2013 10:13 AM LABOR RELATIONS TEACHER COPD (chronic obstructive pulmonary disease) (HCC) GLUCOSE - POINT OF CARE Routine 11/03/2013 7:48 AM LABOR RELATIONS TEACHER CBC W/O DIFFERENTIAL AM Draw 11/03/2013 4:52 AM LABOR RELATIONS TEACHER BASIC METABOLIC PANEL (CALCIUM TOTAL) AM Draw 11/03/2013 4:52 AM LABOR RELATIONS TEACHER BLOOD GASES ARTERIAL POCT RT TIMED 11/03/2013 1:01 AM LABOR RELATIONS TEACHER GLUCOSE - POINT OF CARE Routine 11/02/2013 9:36 PM LABOR RELATIONS TEACHER GLUCOSE - POINT OF CARE Routine 11/02/2013 3:36 PM LABOR RELATIONS TEACHER GLUCOSE - POINT OF CARE Routine 11/02/2013 10:04 AM LABOR RELATIONS TEACHER XR CHEST 1VW PORTABLE Routine 11/02/2013 9:08 AM LABOR RELATIONS TEACHER SOB (shortness of breath) Respiratory distress Hypoxia COPD (chronic obstructive pulmonary disease) (HCC) GLUCOSE - POINT OF CARE Routine 11/02/2013 6:10 AM LABOR RELATIONS TEACHER CULTURE VRE Routine 11/02/2013 3:18 AM LABOR RELATIONS TEACHER CULTURE MRSA Routine 11/02/2013 3:18 AM LABOR RELATIONS TEACHER CBC W/O DIFFERENTIAL AM Draw 11/02/2013 3:18 AM LABOR RELATIONS TEACHER BASIC METABOLIC PANEL (CALCIUM TOTAL) AM Draw 11/02/2013 3:18 AM LABOR RELATIONS TEACHER BLOOD GASES ART (ISTAT) Routine 11/02/2013 3:18 AM LABOR RELATIONS TEACHER MAGNESIUM BLOOD STAT 11/02/2013 3:18 AM LABOR RELATIONS TEACHER BLOOD GASES ARTERIAL POCT RT TIMED 11/02/2013 12:18 AM LABOR RELATIONS TEACHER GLUCOSE - POINT OF CARE Routine 11/01/2013 11:19 PM LABOR RELATIONS TEACHER TROPONIN I Timed 11/01/2013 9:35 PM LABOR RELATIONS TEACHER BASIC METABOLIC PANEL (CALCIUM TOTAL) Routine 11/01/2013 9:35 PM LABOR RELATIONS TEACHER PHOSPHORUS BLOOD Timed 11/01/2013 9:35 PM LABOR RELATIONS TEACHER MAGNESIUM BLOOD Timed 11/01/2013 9:35 PM LABOR RELATIONS TEACHER GLUCOSE - POINT OF CARE Routine 11/01/2013 8:44 PM LABOR RELATIONS TEACHER BLOOD GASES ART (ISTAT) Routine 11/01/2013 5:52 PM LABOR RELATIONS TEACHER BLOOD GASES ART (ISTAT) Routine 11/01/2013 3:58 PM LABOR RELATIONS TEACHER XR CHEST 1VW PORTABLE STAT 11/01/2013 3:20 PM LABOR RELATIONS TEACHER SOB (shortness of breath) BLOOD GASES ARTERIAL POCT STAT 11/01/2013 3:04 PM LABOR RELATIONS TEACHER B-TYPE NATRIURETIC PEPTIDE STAT 11/01/2013 2:59 PM LABOR RELATIONS TEACHER TROPONIN I STAT 11/01/2013 2:58 PM LABOR RELATIONS TEACHER CBC W AUTO DIFFERENTIAL STAT 11/01/2013 2:58 PM LABOR RELATIONS TEACHER COMPREHENSIVE METABOLIC PANEL STAT 11/01/2013 2:58 PM LABOR RELATIONS TEACHER BLOOD GASES ART (ISTAT) Routine 11/01/2013 2:58 PM LABOR RELATIONS TEACHER EKG 12-LEAD Routine 11/01/2013 2:28 PM LABOR RELATIONS TEACHER SOB (shortness of breath) documented in this encounter Results * CARDIAC RHYTHM STRIP ORDER (11/15/2013 9:39 PM LABOR RELATIONS TEACHER) Narrative 11/15/2013 9:39 PM LABOR RELATIONS TEACHER Ordered by an unspecified provider. Transcriptions Document, Scanned - 11/15/2013 9:39 PM CST Scanned Document CARDIAC SERVICES ORD ERABLES * LAB RESULTS ORDER (11/15/2013 9:39 PM LABOR RELATIONS TEACHER) Narrative 11/15/2013 9:39 PM LABOR RELATIONS TEACHER Ordered by an unspecified provider. Transcriptions Document, Scanned - 11/15/2013 9:39 PM CST Scanned Document LAB - THERAPEUTIC DR UG MONITORING ORDERABLES * (ABNORMAL) GLUCOSE - POINT OF CARE (11/14/2013 11:52 AM LABOR RELATIONS TEACHER) Glucose WB/POC 137(H) 70 - 106 mg/dL 11/14/2013 11:54 AM LABOR RELATIONS TEACHER [facility] Blood BLOOD SPECIMEN / Unknown 11/14/2013 11:52 AM LABOR RELATIONS TEACHER 11/14/2013 11:54 AM LABOR RELATIONS TEACHER Bk Lemus MD LAB - POINT OF CARE ORDERABLES Performing Organization Address [facility] de Phone Number [facility] [address] [place] [address] * (ABNORMAL) GLUCOSE - POINT OF CARE (11/14/2013 7:16 AM LABOR RELATIONS TEACHER) Blood BLOOD SPECIMEN / Unknown 11/14/2013 7:16 AM LABOR RELATIONS TEACHER 11/14/2013 9:34 AM LABOR RELATIONS TEACHER Bk Lemus MD LAB - POINT OF CARE ORDERABLES Performing Organization Address [facility] de Phone Number [facility] [address] [place] [address] * (ABNORMAL) GLUCOSE - POINT OF CARE (11/14/2013 5:44 AM LABOR RELATIONS TEACHER) Glucose WB/POC 230(H) 70 - 106 mg/dL 11/14/2013 9:22 AM [facility] Blood BLOOD SPECIMEN / Unknown 11/14/2013 5:44 AM LABOR RELATIONS TEACHER 11/14/2013 9:22 AM LABOR RELATIONS TEACHER Narrative [facility] - 11/14/2013 9:22 AM LABOR RELATIONS TEACHER NOTIFIED CAREGIVER Bk Lemus MD LAB - POINT OF CARE ORDERABLES Performing Organization Address [facility] de Phone Number [facility] [address] [place] [address] * (ABNORMAL) HEMOGLOBIN A1C (11/14/2013 3:59 AM LABOR RELATIONS TEACHER) Hemoglobin A1c 9.2(H) 4.2 - 6.3 % 11/14/2013 4:35 AM LABOR RELATIONS TEACHER [facility] Estimated Average Glucose 217 mg/dL 11/14/2013 4:35 AM LABOR RELATIONS TEACHER [facility] Whole Blood BLOOD SPECIMEN WITH EDTA / Unknown 11/14/2013 3:59 AM LABOR RELATIONS TEACHER 11/14/2013 4:04 AM LABOR RELATIONS TEACHER Bk Lemus MD LAB - CHEMISTRY ORDE RABCLAYTON Performing Organization Address [facility] [[email or web address]] Co de Phone Number [facility] [address] [place] [address] * (ABNORMAL) GLUCOSE - POINT OF CARE (11/13/2013 3:57 PM LABOR RELATIONS TEACHER) [facility] Glucose WB/POC 207(H) 70 - 106 mg/dL 11/13/2013 6:30 PM LABOR RELATIONS TEACHER [facility] Blood BLOOD SPECIMEN / Unknown 11/13/2013 3:57 PM LABOR RELATIONS TEACHER 11/13/2013 6:30 PM LABOR RELATIONS TEACHER Bk Lemus MD LAB - POINT OF CARE ORDERABLES Performing Organization Address [facility] de Phone Number [facility] [id number] [place] [phone] * (ABNORMAL) GLUCOSE - POINT OF CARE (11/13/2013 10:48 AM LABOR RELATIONS TEACHER) Blood BLOOD SPECIMEN / Unknown 11/13/2013 10:48 AM LABOR RELATIONS TEACHER 11/13/2013 11:08 AM LABOR RELATIONS TEACHER Bk Lemus MD LAB - POINT OF CARE ORDERABLES Performing Organization Address [facility] de Phone Number [facility] [id number] [place] [phone] * (ABNORMAL) CBC W AUTO DIFFERENTIAL (11/13/2013 6:09 AM LABOR RELATIONS TEACHER) [facility] WBC 11.7(H) 4.4 - 10.7 x10^9/L 11/13/2013 6:29 AM LABOR RELATIONS TEACHER [facility] RBC 4.68 3.80 - 5.40 x10^12/L 11/13/2013 6:29 AM LABOR RELATIONS TEACHER [facility] Hemoglobin 14.1 12.0 - 17.6 gm/dL 11/13/2013 6:29 AM LABOR RELATIONS TEACHER [facility] Hematocrit 45.0 35.2 - 51.7 % 11/13/2013 6:29 AM LABOR RELATIONS TEACHER [facility] MCV 96.2 80.7 - 98.3 fl 11/13/2013 6:29 AM LABOR RELATIONS TEACHER [facility] MCH 30.1 26.7 - 34.0 pg 11/13/2013 6:29 AM [facility] MCHC 31.3 30.8 - 35.9 gm/dL 11/13/2013 6:29 AM [facility] Platelet Count 161 153 - 416 x10^9/L 11/13/2013 6:29 AM [facility] RDW-CV 14.8 12.1 - 14.9 % 11/13/2013 6:29 AM [facility] MPV 10.7 9.4 - 12.9 fl 11/13/2013 6:29 AM [facility] Neutrophils % 81.2(H) 44.0 - 73.0 % 11/13/2013 6:29 AM [facility] Lymphocytes % 8.3(L) 20.0 - 43.0 % 11/13/2013 6:29 AM [facility] Monocytes % 8.1 5.0 - 13.0 % 11/13/2013 6:29 AM [facility] Eosinophils % 0.0 0.0 - 6.0 % 11/13/2013 6:29 AM [facility] Basophils % 0.1 0.0 - 2.0 % 11/13/2013 6:29 AM [facility] Immature Granulocytes 2.3(H) 0 - 1 % 11/13/2013 6:29 AM [facility] Neutrophil Absolute 9.52(H) 2.01 - 7.14 x10^9/L 11/13/2013 6:29 AM [facility] Lymphocytes Absolute 0.97(L) 1.07 - 3.94 x10^9/L 11/13/2013 6:29 AM [facility] Monocytes Absolute 0.95 0.26 - 1.07 x10^9/L 11/13/2013 6:29 AM [facility] Eosinophils Absolute 0.00 0 - 0.47 x10^9/L 11/13/2013 6:29 AM [facility] Basophils Absolute 0.01 0 - 0.08 x10^9/L 11/13/2013 6:29 AM [facility] Immature Granulocytes Absolute 0.27(H) 0.00 - 0.06 x10^9/L 11/13/2013 6:29 AM [facility] Blood BLOOD SPECIMEN / Unknown 11/13/2013 6:09 AM LABOR RELATIONS TEACHER 11/13/2013 6:21 AM LABOR RELATIONS TEACHER Tor De Los Santos MD LAB - HEMATOLOGY ORD ERABLES Performing Organization Address City/[facility]/ZIP Co de Phone Number [facility] [address] [place] [address] * (ABNORMAL) BASIC METABOLIC PANEL (CALCIUM TOTAL) (11/13/2013 6:09 AM LABOR RELATIONS TEACHER) Glucose 259(H) 74 - 106 mg/dL 11/13/2013 6:42 AM [facility] Sodium 141 136 - 145 mmol/L 11/13/2013 6:42 AM [facility] Potassium 4.2 3.5 - 5.1 mmol/L 11/13/2013 6:42 AM [facility] Chloride 99 98 - 107 mmol/L 11/13/2013 6:42 AM [facility] CO2 37(H) 22 - 31 mmol/L 11/13/2013 6:42 AM [facility] Calcium 8.8 8.5 - 10.1 mg/dL 11/13/2013 6:42 AM [facility] Anion Gap 5 5 - 15 mmol/L 11/13/2013 6:42 AM [facility] BUN 21 7 - 21 mg/dL 11/13/2013 6:42 AM [facility] Creatinine 0.25(L) 0.50 - 1.30 mg/dL 11/13/2013 6:42 AM [facility] eGFR by MDRD >60 >60 mL/min/1.7 3m2 11/13/2013 6:42 AM [facility] eGFR by MDRD >60 >60 mL/min/1.7 3m2 11/13/2013 6:42 AM [facility] Blood BLOOD SPECIMEN / Unknown 11/13/2013 6:09 AM LABOR RELATIONS TEACHER 11/13/2013 6:21 AM [facility] Tor De Los Santos MD LAB - CHEMISTRY LAKISHA CRAIG Performing Organization Address [facility]/ZIP Co de Phone Number [facility] [address] [place] [address] * XR CHEST 1VW PORTABLE (11/13/2013 6:00 AM LABOR RELATIONS TEACHER) Anatomical Region Laterality Modality Chest Radiographic Tracey ging 11/13/2013 10:1 4 AM LABOR RELATIONS TEACHER Narrative 11/13/2013 10:50 AM LABOR RELATIONS TEACHER CHEST AP PORTABLE 11/13/2013 INDICATION: Respiratory distress. [...] Santos MD DIAGNOSTIC IMAGING O RDERABLES * (ABNORMAL) GLUCOSE - POINT OF CARE (11/13/2013 5:53 AM LABOR RELATIONS TEACHER) Glucose WB/POC 224(H) 70 - 106 mg/dL 11/13/2013 10:45 AM LABOR RELATIONS TEACHER [facility] Blood BLOOD SPECIMEN / Unknown 11/13/2013 5:53 AM LABOR RELATIONS TEACHER 11/13/2013 10:45 AM LABOR RELATIONS TEACHER Narrative [facility] - 11/13/2013 10:45 AM LABOR RELATIONS TEACHER NOTIFIED CAREGIVER Bk Lemus MD LAB - POINT OF CARE ORDERABLES [facility] [address] [place] [address] * (ABNORMAL) GLUCOSE - POINT OF CARE (11/12/2013 11:57 PM LABOR RELATIONS TEACHER) Glucose WB/POC 255(H) 70 - 106 mg/dL 11/13/2013 5:05 AM LABOR RELATIONS TEACHER [facility] Blood BLOOD SPECIMEN / Unknown 11/12/2013 11:57 PM LABOR RELATIONS TEACHER 11/13/2013 5:05 AM LABOR RELATIONS TEACHER Bk Lemus MD LAB - POINT OF CARE ORDERABLES Performing Organization Address [facility] [[email or web address]] Co de Phone Number [facility] [address] [place] [address] * BLOOD GASES ARTERIAL POCT (11/12/2013 6:20 PM LABOR RELATIONS TEACHER) Comment Notification Only - See Separate Report 11/12/2013 8:00 PM LABOR RELATIONS TEACHER [facility] Blood BLOOD SPECIMEN / Unknown 11/12/2013 6:20 PM LABOR RELATIONS TEACHER 11/12/2013 6:20 PM LABOR RELATIONS TEACHER Tor De Los Santos MD LAB - BLOOD GASES OR DERABLES Performing Organization Address [facility] de Phone Number [facility] [address] [place] [address] * (ABNORMAL) GLUCOSE - POINT OF CARE (11/12/2013 5:47 PM LABOR RELATIONS TEACHER) Blood BLOOD SPECIMEN / Unknown 11/12/2013 5:47 PM LABOR RELATIONS TEACHER 11/13/2013 12:09 AM LABOR RELATIONS TEACHER Bk Lemus MD LAB - POINT OF CARE ORDERABLES Performing Organization Address [facility] [[email or web address] Co de Phone Number [facility] [address] [place] [address] * (ABNORMAL) BLOOD GASES ART (ISTAT) (11/12/2013 11:52 AM LABOR RELATIONS TEACHER) pH Arterial POCT 7.39 7.35 - 7.45 pH 11/12/2013 11:57 AM LABOR RELATIONS TEACHER [facility] pCO2 Arterial 67.4(H) 32 - 43 mmHg 11/12/2013 11:57 AM LABOR RELATIONS TEACHER [facility] pO2 Arterial 104 72 - 104 mmHg 11/12/2013 11:57 AM LABOR RELATIONS TEACHER [facility] HCO3 Arterial POCT 41.2(H) 22 - 26 mmol/L 11/12/2013 11:57 AM LABOR RELATIONS TEACHER [facility] BE Arterial 13(H) -2 - 2 mmol/L 11/12/2013 11:57 AM LABOR RELATIONS TEACHER [facility] TCO2 Arterial Calc POCT 43(H) 22 - 29 mmol/L 11/12/2013 11:57 AM [facility] O2 Saturation Arterial 98 90 - 100 % 11/12/2013 11:57 AM LABOR RELATIONS TEACHER [facility] Mode PS 11/12/2013 11:57 AM LABOR RELATIONS TEACHER [facility] PEEP 5 11/12/2013 11:57 AM [facility] Pressure Support 8 11/12/2013 11:57 AM LABOR RELATIONS TEACHER [facility] Site L Radial 11/12/2013 11:57 AM LABOR RELATIONS TEACHER [facility] Edy's Test POS/PASS 11/12/2013 11:57 AM [facility] Treatment Delivery Method VENT 11/12/2013 11:57 AM [facility] FI O2 40 % 11/12/2013 11:57 AM LABOR RELATIONS TEACHER [facility] Sample iSTAT ARTERI 11/12/2013 11:57 AM [facility] PT iSTAT [id number] 11/12/2013 11:57 AM [facility] Device 11/12/2013 11:57 AM LABOR RELATIONS TEACHER [facility] Chief Medical Officer ID [id number] 11/12/2013 11:57 AM [facility] Blood ARTERIAL BLOOD SPECIMEN / Unknown 11/12/2013 11:52 AM LABOR RELATIONS TEACHER 11/12/2013 11:57 AM LABOR RELATIONS TEACHER Bk Lemus MD LAB - POINT OF CARE ORDERABLES Performing Organization Address City/[facility] [[email or web address] Co de Phone Number [facility] [address] [place] [address] * (ABNORMAL) GLUCOSE - POINT OF CARE (11/12/2013 11:49 AM LABOR RELATIONS TEACHER) Glucose WB/POC 253(H) 70 - 106 mg/dL 11/12/2013 4:22 PM [facility] Blood BLOOD SPECIMEN / Unknown 11/12/2013 11:49 AM LABOR RELATIONS TEACHER 11/12/2013 4:21 PM LABOR RELATIONS TEACHER Bk Lemus MD LAB - POINT OF CARE ORDERABLES Performing Organization Address [facility] de Phone Number [facility] [address] [place] [address] * XR CHEST 1VW PORTABLE (11/12/2013 7:00 AM LABOR RELATIONS TEACHER) Anatomical Region Laterality Modality Chest Radiographic Tracey ging 11/12/2013 8:32 AM LABOR RELATIONS TEACHER Impressions 11/12/2013 8:32 AM LABOR RELATIONS TEACHER Cardiomegaly and small bilateral effusions. Narrative 11/12/2013 8:32 AM LABOR RELATIONS TEACHER AP Portable Chest Indication: Respiratory failure shortness of breath Findings: A single portable view of the chest shows cardiomegaly and blunting of the costophrenic angles. Endotracheal tube, NG tube are noted in place. Aorta is tortuous. Procedure Note Dora Yang MD - 11/12/2013 AP Portable Chest Indication: Respiratory failure shortness of breath Findings: A single portable view of the chest shows cardiomegaly and blunting of the costophrenic angles. Endotracheal tube, NG tube are noted in place. Aorta is tortuous. IMPRESSION Cardiomegaly and small bilateral effusions. Tor De Los Santos MD DIAGNOSTIC IMAGING O RDERABLES * (ABNORMAL) GLUCOSE - POINT OF CARE (11/12/2013 6:34 AM LABOR RELATIONS TEACHER) Glucose WB/POC 232(H) 70 - 106 mg/dL 11/12/2013 6:40 AM LABOR RELATIONS TEACHER [facility] Blood BLOOD SPECIMEN / Unknown 11/12/2013 6:34 AM LABOR RELATIONS TEACHER 11/12/2013 6:40 AM LABOR RELATIONS TEACHER Bk Lemus MD LAB - POINT OF CARE ORDERABLES Performing Organization Address City/State/[facility] [[email or web address]] Co de Phone Number [facility] [address] [place] [address] * (ABNORMAL) COMPREHENSIVE METABOLIC PANEL (11/12/2013 5:32 AM LABOR RELATIONS TEACHER) Glucose 288(H) 74 - 106 mg/dL 11/12/2013 6:01 AM LABOR RELATIONS TEACHER [facility] Sodium 142 136 - 145 mmol/L 11/12/2013 6:01 AM LABOR RELATIONS TEACHER [facility] Potassium 4.0 3.5 - 5.1 mmol/L 11/12/2013 6:01 AM LABOR RELATIONS TEACHER [facility] Chloride 103 98 - 107 mmol/L 11/12/2013 6:01 AM LABOR RELATIONS TEACHER [facility] CO2 33(H) 22 - 31 mmol/L 11/12/2013 6:01 AM LABOR RELATIONS TEACHER [facility] Calcium 8.4(L) 8.5 - 10.1 mg/dL 11/12/2013 6:01 AM [facility] Anion Gap 6 5 - 15 mmol/L 11/12/2013 6:01 AM [facility] BUN 28(H) 7 - 21 mg/dL 11/12/2013 6:01 AM [facility] Creatinine 0.45(L) 0.50 - 1.30 mg/dL 11/12/2013 6:01 AM [facility] eGFR by MDRD >60 >60 mL/min/1.7 3m2 11/12/2013 6:01 AM [facility] eGFR by MDRD >60 >60 mL/min/1.7 3m2 11/12/2013 6:01 AM [facility] Alkaline Phosphatase 59 38 - 126 U/L 11/12/2013 6:01 AM [facility] ALT 38 12 - 78 U/L 11/12/2013 6:01 AM [facility] AST 18 5 - 40 U/L 11/12/2013 6:01 AM [facility] Protein Total 5.7(L) 6.4 - 8.2 gm/dL 11/12/2013 6:01 AM [facility] Albumin 2.5(L) 3.4 - 5.0 gm/dL 11/12/2013 6:01 AM [facility] Bilirubin Total 0.6 0.2 - 1.0 mg/dL 11/12/2013 6:01 AM [facility] Blood BLOOD SPECIMEN / Unknown 11/12/2013 5:32 AM [facility] 11/12/2013 5:36 AM [facility] Tor De Los Santos MD LAB - CHEMISTRY ORDE RAFA [facility] [address] [place] [address] * (ABNORMAL) CBC W AUTO DIFFERENTIAL (11/12/2013 4:23 AM [facility]) WBC 10.6 4.4 - 10.7 x10^9/L 11/12/2013 5:20 AM [facility] RBC 3.88 3.80 - 5.40 x10^12/L 11/12/2013 5:20 AM [facility] Hemoglobin 11.7(L) 12.0 - 17.6 gm/dL 11/12/2013 5:20 AM [facility] Hematocrit 40.0 35.2 - 51.7 % 11/12/2013 5:20 AM [facility] MCV 103.1(H) 80.7 - 98.3 fl 11/12/2013 5:20 AM [facility] MCH 30.2 26.7 - 34.0 pg 11/12/2013 5:20 AM [facility] MCHC 29.3(L) 30.8 - 35.9 gm/dL 11/12/2013 5:20 AM [facility] Platelet Count 126(L) 153 - 416 x10^9/L 11/12/2013 5:20 AM [facility] MPV 11.5 9.4 - 12.9 fl 11/12/2013 5:20 AM [facility] Hematology Reflex Status Manual Diff to follow 11/12/2013 5:20 AM [facility] Blood BLOOD SPECIMEN / Unknown 11/12/2013 4:23 AM LABOR RELATIONS TEACHER 11/12/2013 4:36 AM [facility] Tor De Los Santos MD LAB - HEMATOLOGY ORD ERABLES [facility] [address] [place] [address] * (ABNORMAL) DIFFERENTIAL MANUAL (11/12/2013 4:23 AM [facility]) WBC Auto 10.6 x10^9/L 11/12/2013 6:46 AM [facility] Neutrophil % Manual 85(H) 44 - 73 % 11/12/2013 6:46 AM [facility] Lymphocytes % Manual 5(L) 20 - 43 % 11/12/2013 6:46 AM [facility] Monocytes % Manual 7 5 - 13 % 11/12/2013 6:46 AM [facility] Band % Manual 2 0 - 11 % 11/12/2013 6:46 AM [facility] Hyndman Manual 1(H) <=0 % 11/12/2013 6:46 AM [facility] Cells Counted 100 # cells 11/12/2013 6:46 AM [facility] RBC Morphology Normal 11/12/2013 6:46 AM [facility] WBC Morph Normal 11/12/2013 6:46 AM LABOR RELATIONS TEACHER [facility] Blood BLOOD SPECIMEN / Unknown 11/12/2013 4:23 AM LABOR RELATIONS TEACHER 11/12/2013 4:36 AM LABOR RELATIONS TEACHER Tor De Los Santos MD LAB - HEMATOLOGY ORD ERABLES Performing Organization Address [facility] [[email or web address]] Co de Phone Number [facility] [address] [place] [address] * (ABNORMAL) GLUCOSE - POINT OF CARE (11/12/2013 1:07 AM LABOR RELATIONS TEACHER) Glucose WB/POC 266(H) 70 - 106 mg/dL 11/12/2013 5:28 AM LABOR RELATIONS TEACHER [facility] Blood BLOOD SPECIMEN / Unknown 11/12/2013 1:07 AM LABOR RELATIONS TEACHER 11/12/2013 5:28 AM LABOR RELATIONS TEACHER Bk Lemus MD LAB - POINT OF CARE ORDERABLES Performing Organization Address [facility] de Phone Number [facility] [address] [place] [address] * (ABNORMAL) GLUCOSE - POINT OF CARE (11/11/2013 5:42 PM LABOR RELATIONS TEACHER) Glucose WB/POC 290(H) 70 - 106 mg/dL 11/11/2013 7:36 PM LABOR RELATIONS TEACHER [facility] Blood BLOOD SPECIMEN / Unknown 11/11/2013 5:42 PM LABOR RELATIONS TEACHER 11/11/2013 7:36 PM LABOR RELATIONS TEACHER Bk Lemus MD LAB - POINT OF CARE ORDERABLES Performing Organization Address [facility] de Phone Number [facility] [address] [place] [address] * (ABNORMAL) GLUCOSE - POINT OF CARE (11/11/2013 11:38 AM LABOR RELATIONS TEACHER) Glucose WB/POC 285(H) 70 - 106 mg/dL 11/11/2013 2:24 PM LABOR RELATIONS TEACHER [facility] Blood BLOOD SPECIMEN / Unknown 11/11/2013 11:38 AM LABOR RELATIONS TEACHER 11/11/2013 2:24 PM LABOR RELATIONS TEACHER Bk Lemus MD LAB - POINT OF CARE ORDERABLES Performing Organization Address City/[facility]/ZIP Co de Phone Number [facility] [address] [place] [address] * XR CHEST 1VW PORTABLE (11/11/2013 6:00 AM LABOR RELATIONS TEACHER) Anatomical Region Laterality Modality Chest Radiographic Tracey ging 11/11/2013 9:03 AM LABOR RELATIONS TEACHER Impressions 11/11/2013 9:03 AM LABOR RELATIONS TEACHER Cardiomegaly, congestion, basilar infiltrates. No change. Narrative 11/11/2013 9:03 AM LABOR RELATIONS TEACHER AP Portable Chest Indication: Shortness of breath Findings: A single portable view of the chest shows cardiomegaly and congestion. There is blunting of left costophrenic angle. Peripheral right lower lobe infiltrate is unchanged. The endotracheal tube, NG tube are in place unchanged. Procedure Note Dora Yang MD - 11/11/2013 AP Portable Chest Indication: Shortness of breath Findings: A single portable view of the chest shows cardiomegaly and congestion. There is blunting of left costophrenic angle. Peripheral right lower lobe infiltrate is unchanged. The endotracheal tube, NG tube are in place unchanged. IMPRESSION Cardiomegaly, congestion, basilar infiltrates. No change. Oren Manzano MD DIAGNOSTIC IMAGIN G ORDERABLES * (ABNORMAL) GLUCOSE - POINT OF CARE (11/11/2013 5:51 AM LABOR RELATIONS TEACHER) Glucose WB/POC 225(H) 70 - 106 mg/dL 11/11/2013 10:06 AM LABOR RELATIONS TEACHER [facility] Blood BLOOD SPECIMEN / Unknown 11/11/2013 5:51 AM LABOR RELATIONS TEACHER 11/11/2013 10:05 AM LABOR RELATIONS TEACHER Bk Lemus MD LAB - POINT OF CARE ORDERABLES Performing Organization Address [facility]/ZIP Co de Phone Number [facility] [address] [place] [address] * (ABNORMAL) CBC W AUTO DIFFERENTIAL (11/11/2013 4:00 AM LABOR RELATIONS TEACHER) WBC 7.5 4.4 - 10.7 x10^9/L 11/11/2013 4:20 AM [facility] RBC 4.34 3.80 - 5.40 x10^12/L 11/11/2013 4:20 AM [facility] Hemoglobin 12.8 12.0 - 17.6 gm/dL 11/11/2013 4:20 AM [facility] Hematocrit 42.5 35.2 - 51.7 % 11/11/2013 4:20 AM [facility] MCV 97.9 80.7 - 98.3 fl 11/11/2013 4:20 AM [facility] MCH 29.5 26.7 - 34.0 pg 11/11/2013 4:20 AM [facility] MCHC 30.1(L) 30.8 - 35.9 gm/dL 11/11/2013 4:20 AM [facility] Platelet Count 157 153 - 416 x10^9/L 11/11/2013 4:20 AM [facility] RDW-CV 15.5(H) 12.1 - 14.9 % 11/11/2013 4:20 AM [facility] MPV 11.0 9.4 - 12.9 fl 11/11/2013 4:20 AM [facility] Neutrophils % 80.5(H) 44.0 - 73.0 % 11/11/2013 4:20 AM [facility] Lymphocytes % 5.6(L) 20.0 - 43.0 % 11/11/2013 4:20 AM [facility] Monocytes % 12.4 5.0 - 13.0 % 11/11/2013 4:20 AM [facility] Eosinophils % 0.0 0.0 - 6.0 % 11/11/2013 4:20 AM [facility] Basophils % 0.0 0.0 - 2.0 % 11/11/2013 4:20 AM [facility] Immature Granulocytes 1.5(H) 0 - 1 % 11/11/2013 4:20 AM [facility] Neutrophil Absolute 6.03 2.01 - 7.14 x10^9/L 11/11/2013 4:20 AM [facility] Lymphocytes Absolute 0.42(L) 1.07 - 3.94 x10^9/L 11/11/2013 4:20 AM [facility] Monocytes Absolute 0.93 0.26 - 1.07 x10^9/L 11/11/2013 4:20 AM [facility] Eosinophils Absolute 0.00 0 - 0.47 x10^9/L 11/11/2013 4:20 AM [facility] Basophils Absolute 0.00 0 - 0.08 x10^9/L 11/11/2013 4:20 AM [facility] Immature Granulocytes Absolute 0.11(H) 0.00 - 0.06 x10^9/L 11/11/2013 4:20 AM [facility] Blood BLOOD SPECIMEN / Unknown 11/11/2013 4:00 AM LABOR RELATIONS TEACHER 11/11/2013 4:12 AM [facility] Oren Manzano MD LAB - HEMATOLOGY ORDERABLES [facility] [address] [place] [address] * (ABNORMAL) COMPREHENSIVE METABOLIC PANEL (11/11/2013 4:00 AM LABOR RELATIONS TEACHER) Glucose 284(H) 74 - 106 mg/dL 11/11/2013 4:40 AM [facility] Sodium 140 136 - 145 mmol/L 11/11/2013 4:40 AM [facility] Potassium 5.2(H) 3.5 - 5.1 mmol/L 11/11/2013 4:40 AM [facility] Chloride 105 98 - 107 mmol/L 11/11/2013 4:40 AM [facility] CO2 32(H) 22 - 31 mmol/L 11/11/2013 4:40 AM [facility] Calcium 8.3(L) 8.5 - 10.1 mg/dL 11/11/2013 4:40 AM [facility] Anion Gap 3(L) 5 - 15 mmol/L 11/11/2013 4:40 AM [facility] BUN 25(H) 7 - 21 mg/dL 11/11/2013 4:40 AM [facility] Creatinine 0.28(L) 0.50 - 1.30 mg/dL 11/11/2013 4:40 AM [facility] eGFR by MDRD >60 >60 mL/min/1.7 3m2 11/11/2013 4:40 AM [facility] eGFR by MDRD >60 >60 mL/min/1.7 3m2 11/11/2013 4:40 AM [facility] Alkaline Phosphatase 51 38 - 126 U/L 11/11/2013 4:40 AM LABOR RELATIONS TEACHER [facility] ALT 28 12 - 78 U/L 11/11/2013 4:40 AM [facility] AST 36 5 - 40 U/L 11/11/2013 4:40 AM [facility] Protein Total 5.6(L) 6.4 - 8.2 gm/dL 11/11/2013 4:40 AM [facility] Albumin 2.2(L) 3.4 - 5.0 gm/dL 11/11/2013 4:40 AM [facility] Bilirubin Total 0.7 0.2 - 1.0 mg/dL 11/11/2013 4:40 AM [facility] Blood BLOOD SPECIMEN / Unknown 11/11/2013 4:00 AM LABOR RELATIONS TEACHER 11/11/2013 4:12 AM LABOR RELATIONS TEACHER Oren Manzano MD LAB - CHEMISTRY O RDERABLES Performing Organization Address [facility] de Phone Number [facility] [address] [place] [address] * BLOOD GASES ARTERIAL POCT (11/11/2013 3:42 AM LABOR RELATIONS TEACHER) Comment Notification Only - See Separate Report 11/11/2013 5:00 AM [facility] Blood BLOOD SPECIMEN / Unknown 11/11/2013 3:42 AM LABOR RELATIONS TEACHER 11/11/2013 3:42 AM LABOR RELATIONS TEACHER Oren Manzano MD LAB - BLOOD GASES ORDERABLES Performing Organization Address [facility] de Phone Number [facility] [address] [place] [address] * (ABNORMAL) BLOOD GASES ART (ISTAT) (11/11/2013 3:31 AM LABOR RELATIONS TEACHER) pH Arterial POCT 7.46(H) 7.35 - 7.45 pH 11/11/2013 3:43 AM LABOR RELATIONS TEACHER [facility] pCO2 Arterial 46.9(H) 32 - 43 mmHg 11/11/2013 3:43 AM [facility] pO2 Arterial 90 72 - 104 mmHg 11/11/2013 3:43 AM LABOR RELATIONS TEACHER [facility] HCO3 Arterial POCT 33.0(H) 22 - 26 mmol/L 11/11/2013 3:43 AM [facility] BE Arterial 8(H) -2 - 2 mmol/L 11/11/2013 3:43 AM [facility] TCO2 Arterial Calc POCT 34(H) 22 - 29 mmol/L 11/11/2013 3:43 AM [facility] O2 Saturation Arterial 97 90 - 100 % 11/11/2013 3:43 AM [facility] Mode PRVC 11/11/2013 3:43 AM [facility] Respiratory Rate 24 11/11/19 3:43 AM [facility] PEEP 10 11/11/2013 3:43 AM [facility] Site R Radial 11/11/2013 3:43 AM [facility] Edy's Test POS/PASS 11/11/2013 3:43 AM [facility] Treatment Delivery Method VENT 11/11/2013 3:43 AM [facility] Sample iSTAT ARTERI 11/11/2013 3:43 AM [facility] PT iSTAT [id number] 11/11/2013 3:43 AM [facility] VT ISTAT 400 11/11/2013 3:43 AM [facility] Device 11/11/2013 3:43 AM [facility] Chief Medical Officer ID [id number] 11/11/2013 3:43 AM [facility] Blood ARTERIAL BLOOD SPECIMEN / Unknown 11/11/2013 3:31 AM LABOR RELATIONS TEACHER 11/11/2013 3:43 AM LABOR RELATIONS TEACHER Bk Lemus MD LAB - POINT OF CARE ORDERABLES Performing Organization Address [facility] [[email or web address] Co de Phone Number [facility] [address] [place] [address] * (ABNORMAL) GLUCOSE - POINT OF CARE (11/10/2013 11:58 PM LABOR RELATIONS TEACHER) Blood BLOOD SPECIMEN / Unknown 11/10/2013 11:58 PM LABOR RELATIONS TEACHER 11/11/2013 1:53 AM LABOR RELATIONS TEACHER Bk Lemus MD LAB - POINT OF CARE ORDERABLES Performing Organization Address City/[facility] [[email or web address]] Co de Phone Number [facility] [address] [place] [address] * BLOOD GASES ARTERIAL POCT (11/10/2013 10:31 PM LABOR RELATIONS TEACHER) Pathologist [facility] Comment Notification Only - See Separate Report 11/11/2013 12:00 AM LABOR RELATIONS TEACHER [facility] Blood BLOOD SPECIMEN / Unknown 11/10/2013 10:31 PM LABOR RELATIONS TEACHER 11/10/2013 10:31 PM LABOR RELATIONS TEACHER Tor De Los Santos MD LAB - BLOOD GASES OR DERABLES Performing Organization Address [facility]/ZIP Co de Phone Number [facility] [address] [place] [address] * (ABNORMAL) GLUCOSE - POINT OF CARE (11/10/2013 5:43 PM LABOR RELATIONS TEACHER) Pathologist [facility] Glucose WB/POC 264(H) 70 - 106 mg/dL 11/10/2013 5:54 PM LABOR RELATIONS TEACHER [facility] Blood BLOOD SPECIMEN / Unknown 11/10/2013 5:43 PM LABOR RELATIONS TEACHER 11/10/2013 5:54 PM LABOR RELATIONS TEACHER Bk Lemus MD LAB - POINT OF CARE ORDERABLES Performing Organization Address [facility] de Phone Number [facility] [address] [place] [address] * VANCOMYCIN LEVEL TROUGH (11/10/2013 3:29 PM LABOR RELATIONS TEACHER) Pathologist [facility] Vancomycin Trough 9.2 5.0 - 15.0 ug/mL 11/10/2013 3:55 PM LABOR RELATIONS TEACHER [facility] Blood BLOOD SPECIMEN / Unknown 11/10/2013 3:29 PM LABOR RELATIONS TEACHER 11/10/2013 3:33 PM LABOR RELATIONS TEACHER Bk Lemus MD LAB - CHEMISTRY ORDE RABLES Performing Organization Address [facility] [[email or web address] Co de Phone Number [facility] [address] [place] [address] * (ABNORMAL) GLUCOSE - POINT OF CARE (11/10/2013 11:57 AM LABOR RELATIONS TEACHER) Pathologist [facility] Glucose WB/POC 304(H) 70 - 106 mg/dL 11/10/2013 12:24 PM LABOR RELATIONS TEACHER [facility] Blood BLOOD SPECIMEN / Unknown 11/10/2013 11:57 AM LABOR RELATIONS TEACHER 11/10/2013 12:24 PM LABOR RELATIONS TEACHER Bk Lemus MD LAB - POINT OF CARE ORDERABLES [facility] [address] [place] [address] * XR CHEST 1VW PORTABLE (11/10/2013 11:16 AM LABOR RELATIONS TEACHER) Anatomical Region Laterality Modality Chest Radiographic Tracey ging 11/10/2013 11:2 2 AM LABOR RELATIONS TEACHER Narrative 11/10/2013 2:13 PM LABOR RELATIONS TEACHER CHEST AP PORTABLE 11/10/2013 INDICATION: Respiratory distress. On ventilator. Single AP supine view of the chest demonstrates cardiomegaly. ??There is continued ??opacification of the left lower lung secondary to infiltrate, hypoventilatory change and/or pleural fluid. There is calcified and thickened pleura along the right lower lateral chest wall. The endotracheal tube is in good position above the justin. There is an NG tube in place. There has been no substantial change from yesterday. Edited by Mechelle Harmon on 11/10/2013 11:27 AM Procedure Note Franck Crump MD - 11/10/2013 CHEST AP PORTABLE 11/10/2013 INDICATION: Respiratory distress. On ventilator. Single AP supine view of the chest demonstrates cardiomegaly. There is continued opacification of the left lower lung secondary to infiltrate, hypoventilatory change and/or pleural fluid. There is calcified and thickened pleura along the right lower lateral chest wall. The endotracheal tube is in good position above the justin. There is an NG tube in place. There has been no substantial change from yesterday. Edited by Mechelle Harmon on 11/10/2013 11:27 AM Oren Manzano MD DIAGNOSTIC ANDER Cameron ORDERABLES * (ABNORMAL) GLUCOSE - POINT OF CARE (11/10/2013 5:42 AM LABOR RELATIONS TEACHER) Glucose WB/POC 349(H) 70 - 106 mg/dL 11/10/2013 6:21 AM LABOR RELATIONS TEACHER [facility] Blood BLOOD SPECIMEN / Unknown 11/10/2013 5:42 AM LABOR RELATIONS TEACHER 11/10/2013 6:21 AM LABOR RELATIONS TEACHER Bk Lemus MD LAB - POINT OF CARE ORDERABLES Performing Organization Address [facility]/ZIP Co de Phone Number [facility] [id number] [place] [address] * MAGNESIUM BLOOD (11/10/2013 2:29 AM LABOR RELATIONS TEACHER) Magnesium 1.8 1.6 - 2.6 mg/dL 11/10/2013 3:15 AM [facility] Blood BLOOD SPECIMEN / Unknown 11/10/2013 2:29 AM LABOR RELATIONS TEACHER 11/10/2013 2:50 AM LABOR RELATIONS TEACHER Jenifer Bhardwaj MD LAB - CHEMISTRY LAKISHA CRAIG Performing Organization Address [facility] Affairs [facility] de Phone Number [facility] [address] [place] [address] * (ABNORMAL) BASIC METABOLIC PANEL (CALCIUM TOTAL) (11/10/2013 2:29 AM LABOR RELATIONS TEACHER) Glucose 336(H) 74 - 106 mg/dL 11/10/2013 3:15 AM [facility] Sodium 142 136 - 145 mmol/L 11/10/2013 3:15 AM [facility] Potassium 3.8 3.5 - 5.1 mmol/L 11/10/2013 3:15 AM [facility] Chloride 102 98 - 107 mmol/L 11/10/2013 3:15 AM [facility] CO2 34(H) 22 - 31 mmol/L 11/10/2013 3:15 AM [facility] Calcium 8.4(L) 8.5 - 10.1 mg/dL 11/10/2013 3:15 AM [facility] Anion Gap 6 5 - 15 mmol/L 11/10/2013 3:15 AM [facility] BUN 22(H) 7 - 21 mg/dL 11/10/2013 3:15 AM [facility] Creatinine 0.42(L) 0.50 - 1.30 mg/dL 11/10/2013 3:15 AM [facility] eGFR by MDRD >60 >60 mL/min/1.7 3m2 11/10/2013 3:15 AM [facility] eGFR by MDRD >60 >60 mL/min/1.7 3m2 11/10/2013 3:15 AM [facility] Blood BLOOD SPECIMEN / Unknown 11/10/2013 2:29 AM LABOR RELATIONS TEACHER 11/10/2013 2:50 AM LABOR RELATIONS TEACHER Jenifer Bhardwaj MD LAB - CHEMISTRY LAKISHA CRAIG [facility] Organization Address City/State/ZIP Co de Phone Number [facility] [address] [place] [address] * (ABNORMAL) CBC W AUTO DIFFERENTIAL (11/10/2013 2:29 AM LABOR RELATIONS TEACHER) WBC 8.7 4.4 - 10.7 x10^9/L 11/10/2013 2:57 AM [facility] RBC 4.36 3.80 - 5.40 x10^12/L 11/10/2013 2:57 AM [facility] Hemoglobin 13.0 12.0 - 17.6 gm/dL 11/10/2013 2:57 AM [facility] Hematocrit 43.1 35.2 - 51.7 % 11/10/2013 2:57 AM [facility] MCV 98.9(H) 80.7 - 98.3 fl 11/10/2013 2:57 AM [facility] MCH 29.8 26.7 - 34.0 pg 11/10/2013 2:57 AM [facility] MCHC 30.2(L) 30.8 - 35.9 gm/dL 11/10/2013 2:57 AM [facility] Platelet Count 147(L) 153 - 416 x10^9/L 11/10/2013 2:57 AM [facility] RDW-CV 15.5(H) 12.1 - 14.9 % 11/10/2013 2:57 AM [facility] MPV 10.7 9.4 - 12.9 fl 11/10/2013 2:57 AM [facility] Neutrophils % 87.9(H) 44.0 - 73.0 % 11/10/2013 2:57 AM [facility] Lymphocytes % 3.1(L) 20.0 - 43.0 % 11/10/2013 2:57 AM [facility] Monocytes % 8.2 5.0 - 13.0 % 11/10/2013 2:57 AM LABOR RELATIONS TEACHER [facility] Eosinophils % 0.0 0.0 - 6.0 % 11/10/2013 2:57 AM LABOR RELATIONS TEACHER [facility] Basophils % 0.0 0.0 - 2.0 % 11/10/2013 2:57 AM LABOR RELATIONS TEACHER [facility] Immature Granulocytes 0.8 0 - 1 % 11/10/2013 2:57 AM LABOR RELATIONS TEACHER [facility] Neutrophil Absolute 7.60(H) 2.01 - 7.14 x10^9/L 11/10/2013 2:57 AM LABOR RELATIONS TEACHER [facility] Lymphocytes Absolute 0.27(L) 1.07 - 3.94 x10^9/L 11/10/2013 2:57 AM LABOR RELATIONS TEACHER [facility] Monocytes Absolute 0.71 0.26 - 1.07 x10^9/L 11/10/2013 2:57 AM LABOR RELATIONS TEACHER [facility] Eosinophils Absolute 0.00 0 - 0.47 x10^9/L 11/10/2013 2:57 AM LABOR RELATIONS TEACHER [facility] Basophils Absolute 0.00 0 - 0.08 x10^9/L 11/10/2013 2:57 AM LABOR RELATIONS TEACHER [facility] Immature Granulocytes Absolute 0.07(H) 0.00 - 0.06 x10^9/L 11/10/2013 2:57 AM LABOR RELATIONS TEACHER [facility] Blood BLOOD SPECIMEN / Unknown 11/10/2013 2:29 AM LABOR RELATIONS TEACHER 11/10/2013 2:50 AM LABOR RELATIONS TEACHER Jenifer Bhardwaj MD LAB - HEMATOLOGY ORD ERABLES Performing Organization Address City/[facility] [[email or web address]] Co de Phone Number [facility] [address] [place] [address] * (ABNORMAL) GLUCOSE - POINT OF CARE (11/09/2013 11:40 PM LABOR RELATIONS TEACHER) [facility] Glucose WB/POC 275(H) 70 - 106 mg/dL 11/10/2013 12:34 AM LABOR RELATIONS TEACHER [facility] Blood BLOOD SPECIMEN / Unknown 11/09/2013 11:40 PM LABOR RELATIONS TEACHER 11/10/2013 12:34 AM LABOR RELATIONS TEACHER Narrative [facility] - 11/10/2013 12:34 AM LABOR RELATIONS TEACHER GLYCEMIC PROTOCOL Bk Lemus MD LAB - POINT OF CARE ORDERABLES [facility] [address] [place] [address] * (ABNORMAL) GLUCOSE - POINT OF CARE (11/09/2013 5:28 PM LABOR RELATIONS TEACHER) Glucose WB/POC 237(H) 70 - 106 mg/dL 11/09/2013 5:47 PM LABOR RELATIONS TEACHER [facility] Blood BLOOD SPECIMEN / Unknown 11/09/2013 5:28 PM LABOR RELATIONS TEACHER 11/09/2013 5:47 PM LABOR RELATIONS TEACHER Bk Lemus MD LAB - POINT OF CARE ORDERABLES Performing Organization Address [facility] de Phone Number [facility] [address] [place] [address] * (ABNORMAL) GLUCOSE - POINT OF CARE (11/09/2013 11:36 AM LABOR RELATIONS TEACHER) Glucose WB/POC 231(H) 70 - 106 mg/dL 11/09/2013 12:24 PM LABOR RELATIONS TEACHER [facility] Blood BLOOD SPECIMEN / Unknown 11/09/2013 11:36 AM LABOR RELATIONS TEACHER 11/09/2013 12:24 PM LABOR RELATIONS TEACHER Bk Lemus MD LAB - POINT OF CARE ORDERABLES Performing Organization Address [facility] de Phone Number [facility] [address] [place] [address] * XR CHEST 1VW PORTABLE (11/09/2013 8:25 AM LABOR RELATIONS TEACHER) Anatomical Region Laterality Modality Chest Radiographic Tracey ging 11/09/2013 8:27 AM LABOR RELATIONS TEACHER Narrative 11/09/2013 8:27 AM LABOR RELATIONS TEACHER Examination: Chest single view portable. Indication for examination: Respiratory failure. Single AP view of the chest shows improved aeration left upper lung zone with residual consolidation left lower lung zone. There also is slightly improved aeration right lower lung zone. There is no pneumothorax. Cardiac megaly persists. No new abnormality. Conclusion: Read aeration left upper lobe. Left lower lobe remains consolidated. Procedure Note Hugo Clark MD - 11/09/2013 Examination: Chest single view portable. Indication for examination: Respiratory failure. Single AP view of the chest shows improved aeration left upper lung zone with residual consolidation left lower lung zone. There also is slightly improved aeration right lower lung zone. There is no pneumothorax. Cardiac megaly persists. No new abnormality. Conclusion: Read aeration left upper lobe. Left lower lobe remains consolidated. Jenifer Bhardwaj MD DIAGNOSTIC IMAGING O RDERABLES * (ABNORMAL) GLUCOSE - POINT OF CARE (11/09/2013 5:27 AM LABOR RELATIONS TEACHER) Glucose WB/POC 215(H) 70 - 106 mg/dL 11/09/2013 8:00 AM LABOR RELATIONS TEACHER [facility] Blood BLOOD SPECIMEN / Unknown 11/09/2013 5:27 AM LABOR RELATIONS TEACHER 11/09/2013 8:00 AM LABOR RELATIONS TEACHER Narrative [facility] - 11/09/2013 8:00 AM LABOR RELATIONS TEACHER GLYCEMIC PROTOCOL Bk Lemus MD LAB - POINT OF CARE ORDERABLES Performing Organization Address City/State/[facility] [[email or web address] Co de Phone Number [facility] [address] [place] [address] * (ABNORMAL) BASIC METABOLIC PANEL (CALCIUM TOTAL) (11/09/2013 4:29 AM LABOR RELATIONS TEACHER) Glucose 195(H) 74 - 106 mg/dL 11/09/2013 4:57 AM [facility] Sodium 141 136 - 145 mmol/L 11/09/2013 4:57 AM [facility] Potassium 3.8 3.5 - 5.1 mmol/L 11/09/2013 4:57 AM [facility] Chloride 99 98 - 107 mmol/L 11/09/2013 4:57 AM [facility] CO2 34(H) 22 - 31 mmol/L 11/09/2013 4:57 AM [facility] Calcium 8.3(L) 8.5 - 10.1 mg/dL 11/09/2013 4:57 AM [facility] Anion Gap 8 5 - 15 mmol/L 11/09/2013 4:57 AM [facility] BUN 22(H) 7 - 21 mg/dL 11/09/2013 4:57 AM [facility] Creatinine 0.41(L) 0.50 - 1.30 mg/dL 11/09/2013 4:57 AM [facility] eGFR by MDRD >60 >60 mL/min/1.7 3m2 11/09/2013 4:57 AM [facility] eGFR by MDRD >60 >60 mL/min/1.7 3m2 11/09/2013 4:57 AM [facility] Blood BLOOD SPECIMEN / Unknown 11/09/2013 4:29 AM LABOR RELATIONS TEACHER 11/09/2013 4:36 AM LABOR RELATIONS TEACHER Lex Banks MD LAB - CHEMISTRY LAKISHA CRAIG [facility] [address] [place] [address] * (ABNORMAL) CBC W AUTO DIFFERENTIAL (11/09/2013 3:49 AM [facility]) WBC 10.5 4.4 - 10.7 x10^9/L 11/09/2013 4:56 AM [facility] RBC 4.52 3.80 - 5.40 x10^12/L 11/09/2013 4:56 AM [facility] Hemoglobin 13.4 12.0 - 17.6 gm/dL 11/09/2013 4:56 AM [facility] Hematocrit 44.4 35.2 - 51.7 % 11/09/2013 4:56 AM [facility] MCV 98.2 80.7 - 98.3 fl 11/09/2013 4:56 AM [facility] MCH 29.6 26.7 - 34.0 pg 11/09/2013 4:56 AM [facility] MCHC 30.2(L) 30.8 - 35.9 gm/dL 11/09/2013 4:56 AM [facility] Platelet Count 157 153 - 416 x10^9/L 11/09/2013 4:56 AM [facility] RDW-CV 15.4(H) 12.1 - 14.9 % 11/09/2013 4:56 AM [facility] MPV 11.4 9.4 - 12.9 fl 11/09/2013 4:56 AM [facility] Neutrophils % 93.3(H) 44.0 - 73.0 % 11/09/2013 4:56 AM [facility] Lymphocytes % 3.1(L) 20.0 - 43.0 % 11/09/2013 4:56 AM [facility] Monocytes % 3.1(L) 5.0 - 13.0 % 11/09/2013 4:56 AM [facility] Eosinophils % 0.0 0.0 - 6.0 % 11/09/2013 4:56 AM [facility] Basophils % 0.0 0.0 - 2.0 % 11/09/2013 4:56 AM [facility] Immature Granulocytes 0.5 0 - 1 % 11/09/2013 4:56 AM [facility] Neutrophil Absolute 9.78(H) 2.01 - 7.14 x10^9/L 11/09/2013 4:56 AM [facility] Lymphocytes Absolute 0.33(L) 1.07 - 3.94 x10^9/L 11/09/2013 4:56 AM [facility] Monocytes Absolute 0.33 0.26 - 1.07 x10^9/L 11/09/2013 4:56 AM [facility] Eosinophils Absolute 0.00 0 - 0.47 x10^9/L 11/09/2013 4:56 AM [facility] Basophils Absolute 0.00 0 - 0.08 x10^9/L 11/09/2013 4:56 AM [facility] Immature Granulocytes Absolute 0.05 0.00 - 0.06 x10^9/L 11/09/2013 4:56 AM [facility] Blood BLOOD SPECIMEN / Unknown 11/09/2013 3:49 AM LABOR RELATIONS TEACHER 11/09/2013 4:02 AM [facility] Lex Banks MD LAB - HEMATOLOGY ORD ERABLES [facility] [address] [place] [address] * (ABNORMAL) GLUCOSE - POINT OF CARE (11/08/2013 11:43 PM LABOR RELATIONS TEACHER) [facility] Glucose WB/POC 139(H) 70 - 106 mg/dL 11/09/2013 5:24 AM [facility] Blood BLOOD SPECIMEN / Unknown 11/08/2013 11:43 PM LABOR RELATIONS TEACHER 11/09/2013 5:24 AM LABOR RELATIONS TEACHER Narrative [facility] - 11/09/2013 5:24 AM LABOR RELATIONS TEACHER GLYCEMIC PROTOCOL Bk Lemus MD LAB - POINT OF CARE ORDERABLES [facility] [address] [place] [address] * CT CHEST NON CONTRAST (11/08/2013 4:45 PM LABOR RELATIONS TEACHER) Anatomical Region Laterality Modality Chest Computed Tomogra phy 11/08/2013 5:15 PM LABOR RELATIONS TEACHER Narrative 11/08/2013 5:18 PM LABOR RELATIONS TEACHER Examination: ??Noncontrast CT chest. Indication for examination: [...] effusion. Jenifer Bhardwaj MD CT ORDERABLES * GLUCOSE - POINT OF CARE (11/08/2013 4:06 PM LABOR RELATIONS TEACHER) [facility] Glucose WB/POC 97 70 - 106 mg/dL 11/08/2013 4:10 PM LABOR RELATIONS TEACHER [facility] Blood BLOOD SPECIMEN / Unknown 11/08/2013 4:06 PM LABOR RELATIONS TEACHER 11/08/2013 4:10 PM LABOR RELATIONS TEACHER Bk Lemus MD LAB - POINT OF CARE ORDERABLES Performing Organization Address City/State/[facility] [[email or web address] Co de Phone Number [facility] [address] [place] [address] * XR CHEST PA OR AP (11/08/2013 3:15 PM LABOR RELATIONS TEACHER) Anatomical Region Laterality Modality Chest Radiographic Tracey ging 11/08/2013 3:17 PM LABOR RELATIONS TEACHER Narrative 11/08/2013 3:18 PM LABOR RELATIONS TEACHER Examination: Chest single view portable. Indication for [...] (ABNORMAL) CULTURE SPUTUM+GRAM STAIN (11/08/2013 3:00 PM LABOR RELATIONS TEACHER) Culture Heavy growth Streptococcus pneumoniae(A) 11/10/2013 3:[address] [facility] Culture Light growth normal oropharyngeal opal 11/10/2013 3:[address] [facility] Gram Stain Heavy Gram positive cocci 11/10/2013 3:[address] [facility] Gram Stain >=100 per low power field White blood cells 11/10/2013 3:[address] [facility] Gram Stain <10 per low power field Squamous epithelial cells 11/10/2013 3:[address] [facility] Microbiology SPUTUM / Unknown 11/08/2013 3:00 PM LABOR RELATIONS TEACHER 11/08/2013 3:13 PM LABOR RELATIONS TEACHER [facility] MICROBIOLOGY - 11/10/2013 3:11 PM LABOR RELATIONS TEACHER For non meningitis isolates of S. pneumoniae, [...] Bhardwaj MD LAB - MICROBIOLOGY O RDERABLES [facility] [address] [place] [address], [facility] * BRONCHOSCOPY FLEXIBLE (11/08/2013 2:56 PM LABOR RELATIONS TEACHER) Morgan Carbajal MD - 11/08/2013 2:56 PM LABOR RELATIONS TEACHER Morgan Marsh MD ? 11/08/2013 ??2:56 PM [...] endotracheal tube is about 2cm above the justin. Trachea : ??Visualized portion of the trachea is normal. No endobronchial lesions . No secretions. . Justin: ??Normal with sharp contours. Right mainstem bronchus [...] endotracheal tube is about 2cm above the justin. Trachea : Visualized portion of the trachea is normal. No endobronchiallesions . No secretions. . Justin: Normal with sharp contours. Right mainstem bronchus [...] Marsh MD PROCEDURE/MINOR SURG ICAL ORDERABLES * BLOOD GASES ARTERIAL POCT (11/08/2013 2:43 PM LABOR RELATIONS TEACHER) Comment Notification Only - See Separate Report 11/08/2013 4:00 PM LABOR RELATIONS TEACHER [facility] Blood BLOOD SPECIMEN / Unknown 11/08/2013 2:43 PM LABOR RELATIONS TEACHER 11/08/2013 2:43 PM LABOR RELATIONS TEACHER Jenifer Bhardwaj MD LAB - BLOOD GASES OR DERABLES [facility] [address] [place] [address] * CULTURE MRSA (11/08/2013 2:23 PM LABOR RELATIONS TEACHER) Culture Negative for MRSA 11/10/2013 9:48 AM LABOR RELATIONS TEACHER [facility] Microbiology RECTAL SWAB / Unknown 11/08/2013 2:23 PM LABOR RELATIONS TEACHER 11/08/2013 2:29 PM LABOR RELATIONS TEACHER Jenifer Bhardwaj MD LAB - MICROBIOLOGY O RDERABLES Performing Organization Address [facility] [[email or web address]] Co de Phone Number [facility] [address] [place] [address], [facility] * CULTURE VRE (11/08/2013 2:23 PM LABOR RELATIONS TEACHER) Culture Negative for VRE 11/10/2013 9:50 AM LABOR RELATIONS TEACHER [facility] Stool RECTAL SWAB / Unknown 11/08/2013 2:23 PM LABOR RELATIONS TEACHER 11/08/2013 2:29 PM LABOR RELATIONS TEACHER Jenifer Bhardwaj MD LAB - MICROBIOLOGY O RDERABLES Performing Organization Address [facility] de Phone Number [facility] [address] [place] [address], [facility] * BLOOD GASES ARTERIAL POCT (11/08/2013 12:44 PM LABOR RELATIONS TEACHER) Comment Notification Only - See Separate Report 11/08/2013 2:00 PM LABOR RELATIONS TEACHER [facility] Blood BLOOD SPECIMEN / Unknown 11/08/2013 12:44 PM LABOR RELATIONS TEACHER 11/08/2013 12:44 PM LABOR RELATIONS TEACHER Oren Manzano MD LAB - BLOOD GASES ORDERABLES Performing Organization Address [facility] de Phone Number [facility] [address] [place] [address] * XR CHEST 1VW PORTABLE (11/08/2013 12:19 PM LABOR RELATIONS TEACHER) Anatomical Region Laterality Modality Chest Radiographic Tracey ging 11/08/2013 1:16 PM LABOR RELATIONS TEACHER Impressions 11/08/2013 2:52 PM LABOR RELATIONS TEACHER Slightly improved aeration of the left upper lobe following placement of a ??endotracheal tube. ??Other tubing placements, as described above. The lower two-thirds of the left chest continue to be opacified. ??This examination uses the nonstandard portable technique. Edited by Patricia Sam on 11/08/2013 1:23 PM Narrative 11/08/2013 2:52 PM LABOR RELATIONS TEACHER PORTABLE AP CHEST INDICATION: Shortness of breath, post intubation. COMPARISON: November 07 and November 08, 2013 FINDINGS: A single portable view of the chest shows the lungs to be similar to the examination of November 08, 2013. ??The lower half of the chest continues to be opacified on the left. ??Some aeration remains in the left upper lobe, and this has slightly improved since the earlier examination. ??A endotracheal tube has been inserted with the tip at the level of the clavicles. ??Also, a nasogastric tube has been inserted, but the tip is off the lower edge of the film. ??A central line has apparently been inserted on the right. ??The right lung is clear of new infiltrates, but there is either pleural thickening or a pleural calcification noted in the lower chest on the right. ??The heart size is unchanged. Procedure Note Aldo Oconnell MD - 11/08/2013 PORTABLE AP CHEST INDICATION: Shortness of breath, post intubation. COMPARISON: November 07 and November 08, 2013 FINDINGS: A single portable view of the chest shows the lungs to be similar to the examination of November 08, 2013. The lower half of the chest continues to be opacified on the left. Some aeration remains in the left upper lobe, and this has slightly improved since the earlier examination. A endotracheal tube has been inserted with the tip at the level of the clavicles. Also, a nasogastric tube has been inserted, but the tip is off the lower edge of the film. A central line has apparently been inserted on the right. The right lung is clear of new infiltrates, but there is either pleural thickening or a pleural calcification noted in the lower chest on the right. The heart size is unchanged. IMPRESSION Slightly improved aeration of the left upper lobe following placement of a endotracheal tube. Other tubing placements, as described above. The lower two-thirds of the left chest continue to be opacified. This examination uses the nonstandard portable technique. Edited by Patricia Sam on 11/08/2013 1:23 PM Jenifer Bhardwaj MD DIAGNOSTIC IMAGING O RDERABLES * (ABNORMAL) BLOOD GASES ART (ISTAT) (11/08/2013 12:16 PM LABOR RELATIONS TEACHER) pH Arterial POCT 7.44 7.35 - 7.45 pH 11/08/2013 12:19 PM LABOR RELATIONS TEACHER [facility] pCO2 Arterial 73.3(H) 32 - 43 mmHg 11/08/2013 12:19 PM LABOR RELATIONS TEACHER [facility] pO2 Arterial 68(L) 72 - 104 mmHg 11/08/2013 12:19 PM LABOR RELATIONS TEACHER [facility] HCO3 Arterial POCT 49.2(H) 22 - 26 mmol/L 11/08/2013 12:19 PM LABOR RELATIONS TEACHER [facility] BE Arterial 20(H) -2 - 2 mmol/L 11/08/2013 12:19 PM [facility] TCO2 Arterial Calc POCT >50(H) 22 - 29 mmol/L 11/08/2013 12:19 PM [facility] O2 Saturation Arterial 93 90 - 100 % 11/08/2013 12:19 PM [facility] Mode PRVC 11/08/2013 12:19 PM [facility] Respiratory Rate 24 11/08/19 14 12:19 PM [facility] PEEP 8 11/08/2013 12:19 PM [facility] Site R Radial 11/08/2013 12:19 PM [facility] Edy's Test NA 11/08/2013 12:19 PM [facility] Treatment Delivery Method VENT 11/08/2013 12:19 PM [facility] FI O2 60 % 11/08/2013 12:19 PM [facility] Sample iSTAT ARTERI 11/08/2013 12:19 PM [facility] PT iSTAT [id number] 11/08/2013 12:19 PM [facility] VT ISTAT 450 11/08/2013 12:19 PM [facility] Device 11/08/2013 12:19 PM [facility] Chief Medical Officer ID [id number] 11/08/2013 12:19 PM [facility] Blood ARTERIAL BLOOD SPECIMEN / Unknown 11/08/2013 12:16 PM LABOR RELATIONS TEACHER 11/08/2013 12:19 PM LABOR RELATIONS TEACHER Bk Lemus MD LAB - POINT OF CARE ORDERABLES [facility] [address] [place] [address] * EKG 12-LEAD (11/08/2013 11:21 AM LABOR RELATIONS TEACHER) Ventricular Rate 54 BPM [facility] Atrial Rate 54 BPM [facility] P-R Interval 130 ms [facility] QRS Duration ms 138 ms [facility] Q-T Interval ms 406 ms [facility] QTC Calculation (Bezet) 385 ms [facility] Calculated P [place] 76 degrees [facility] Calculated R [place] 57 degrees [facility] Calculated T [place] 77 degrees [facility] Interpretation EKG Sinus bradycardia Right bundle branch block T wave abnormality, consider lateral ischemia Abnormal ECG Confirmed by YUMIKO VEGA ([id number]) on 11/09/2013 3:12:54 PM [facility] 11/08/2013 11:2 1 AM LABOR RELATIONS TEACHER 11/09/2013 3:12 PM LABOR RELATIONS TEACHER Narrative [facility] - 11/09/2013 3:13 PM LABOR RELATIONS TEACHER Procedure Note Document, Scanned - 11/08/2013 11:53 AM [facility]ST Transcriptions Document, Scanned - 11/08/2013 11:53 AM CST Document, Scanned - 11/09/2013 3:14 PM CST Jenifer Bhardwaj MD ECG ORDERABLES [facility] * GLUCOSE - POINT OF CARE (11/08/2013 10:03 AM LABOR RELATIONS TEACHER) Blood BLOOD SPECIMEN / Unknown 11/08/2013 10:03 AM LABOR RELATIONS TEACHER 11/08/2013 10:14 AM LABOR RELATIONS TEACHER Bk Lemus MD LAB - POINT OF CARE ORDERABLES [facility] [address] [place] [address] * XR CHEST 1VW PORTABLE (11/08/2013 8:22 AM LABOR RELATIONS TEACHER) Anatomical Region Laterality Modality Chest Radiographic Tracey ging 11/08/2013 9:31 AM LABOR RELATIONS TEACHER Narrative 11/08/2013 9:32 AM LABOR RELATIONS TEACHER Examination: Chest single view portable. Indication for examination: Respiratory failure. Single AP view of the chest shows increased atelectasis left upper lung zone as compared to yesterday. No residual aerated left lung is identified currently. Right lung is unchanged in appearance. Cardiomegaly persists. There is no pneumothorax. Conclusion: Atelectasis left lung, complete. Procedure Note Hugo Clark MD - 11/08/2013 Examination: Chest single view portable. Indication for examination: Respiratory failure. Single AP view of the chest shows increased atelectasis left upper lung zone as compared to yesterday. No residual aerated left lung is identified currently. Right lung is unchanged in appearance. Cardiomegaly persists. There is no pneumothorax. Conclusion: Atelectasis left lung, complete. Oren Manzano MD DIAGNOSTIC ANDER Cameron ORDERABLES * (ABNORMAL) BLOOD GASES ART (ISTAT) (11/08/2013 7:40 AM LABOR RELATIONS TEACHER) pH Arterial POCT 7.35 7.35 - 7.45 pH 11/08/2013 7:47 AM [facility] pCO2 Arterial 95.4(H) 32 - 43 mmHg 11/08/2013 7:47 AM [facility] pO2 Arterial 48(LL) 72 - 104 mmHg 11/08/2013 7:47 AM [facility] HCO3 Arterial POCT 52.9(H) 22 - 26 mmol/L 11/08/2013 7:47 AM [facility] BE Arterial 21(H) -2 - 2 mmol/L 11/08/2013 7:47 AM [facility] TCO2 Arterial Calc POCT >50(H) 22 - 29 mmol/L 11/08/2013 7:47 AM [facility] O2 Saturation Arterial 77(LL) 90 - 100 % 11/08/2013 7:47 AM [facility] Respiratory Rate 8 11/08/19 14 7:47 AM [facility] Site R Radial 11/08/2013 7:47 AM [facility] Edy's Test POS/PASS 11/08/2013 7:47 AM [facility] Treatment Delivery Method BiPAP 11/08/2013 7:47 AM LABOR RELATIONS TEACHER [facility] Sample iSTAT ARTERI 11/08/2013 7:47 AM [facility] PT iSTAT [id number] 11/08/2013 7:47 AM [facility] EPAP 6 11/08/2013 7:47 AM [facility] IPAP 20 11/08/2013 7:47 AM [facility] Device 11/08/2013 7:47 AM [facility] Chief Medical Officer ID [id number] 11/08/2013 7:47 AM [facility] Blood ARTERIAL BLOOD SPECIMEN / Unknown 11/08/2013 7:40 AM LABOR RELATIONS TEACHER 11/08/2013 7:47 AM LABOR RELATIONS TEACHER Bk Lemus MD LAB - POINT OF CARE ORDERABLES [facility] [id number] [place] [address] * (ABNORMAL) BLOOD GASES ART (ISTAT) (11/08/2013 7:21 AM [facility]) pH Arterial POCT 7.43 7.35 - 7.45 pH 11/08/2013 7:47 AM [facility] pCO2 Arterial 79.2(H) 32 - 43 mmHg 11/08/2013 7:47 AM [facility] pO2 Arterial 40(LL) 72 - 104 mmHg 11/08/2013 7:47 AM [facility] HCO3 Arterial POCT 52.3(H) 22 - 26 mmol/L 11/08/2013 7:47 AM [facility] BE Arterial 23(H) -2 - 2 mmol/L 11/08/2013 7:47 AM [facility] TCO2 Arterial Calc POCT >50(H) 22 - 29 mmol/L 11/08/2013 7:47 AM [facility] O2 Saturation Arterial 72(LL) 90 - 100 % 11/08/2013 7:47 AM [facility] Respiratory Rate 8 11/08/19 14 7:47 AM [facility] Site R Radial 11/08/2013 7:47 AM [facility] Edy's Test POS/PASS 11/08/2013 7:47 AM [facility] Treatment Delivery Method BiPAP 11/08/2013 7:47 AM [facility] FI O2 70 % 11/08/2013 7:47 AM [facility] Sample iSTAT ARTERI 11/08/2013 7:47 AM [facility] PT iSTAT [id number] 11/08/2013 7:47 AM LABOR RELATIONS TEACHER [facility] EPAP 6 11/08/2013 7:47 AM LABOR RELATIONS TEACHER [facility] IPAP 20 11/08/2013 7:47 AM LABOR RELATIONS TEACHER [facility] Device 11/08/2013 7:47 AM LABOR RELATIONS TEACHER [facility] Chief Medical Officer ID [id number] 11/08/2013 7:47 AM LABOR RELATIONS TEACHER [facility] Blood ARTERIAL BLOOD SPECIMEN / Unknown 11/08/2013 7:21 AM LABOR RELATIONS TEACHER 11/08/2013 7:47 AM LABOR RELATIONS TEACHER Bk Lemus MD LAB - POINT OF CARE ORDERABLES Performing Organization Address [facility] de Phone Number [facility] [address] [place] [address] * GLUCOSE - POINT OF CARE (11/08/2013 5:56 AM LABOR RELATIONS TEACHER) Blood BLOOD SPECIMEN / Unknown 11/08/2013 5:56 AM LABOR RELATIONS TEACHER 11/08/2013 6:14 AM LABOR RELATIONS TEACHER Bk Lemus MD LAB - POINT OF CARE ORDERABLES Performing Organization Address [facility] de Phone Number [facility] [address] [place] [address] * (ABNORMAL) CBC W AUTO DIFFERENTIAL (11/08/2013 3:48 AM LABOR RELATIONS TEACHER) [facility] WBC 10.6 4.4 - 10.7 x10^9/L 11/08/2013 8:20 PM LABOR RELATIONS TEACHER [facility] RBC 4.33 3.80 - 5.40 x10^12/L 11/08/2013 8:20 PM LABOR RELATIONS TEACHER [facility] Hemoglobin 13.3 12.0 - 17.6 gm/dL 11/08/2013 8:20 PM LABOR RELATIONS TEACHER [facility] Hematocrit 45.9 35.2 - 51.7 % 11/08/2013 8:20 PM LABOR RELATIONS TEACHER [facility] Comment:This is a corrected result. Previous result was 50.7 on 11/08/2013 at 0522 MCV 105.5(H) 80.7 - 98.3 fl 11/08/2013 8:20 PM LABOR RELATIONS TEACHER [facility] Comment:This is a corrected result. Previous result was 117.1 on 11/08/2013 at 0522 MCH 29.7 26.7 - 34.0 pg 11/08/2013 8:20 PM LABOR RELATIONS TEACHER [facility] Comment:This is a corrected result. Previous result was 30.7 on 11/08/2013 at 0522 MCHC 28.1(L) 30.8 - 35.9 gm/dL 11/08/2013 8:20 PM LABOR RELATIONS TEACHER [facility] Comment:This is a corrected result. Previous result was 26.2 on 11/08/2013 at 0522 Platelet Count 131(L) 153 - 416 x10^9/L 11/08/2013 8:20 PM LABOR RELATIONS TEACHER [facility] RDW-CV 15.6(H) 12.1 - 14.9 % 11/08/2013 8:20 PM LABOR RELATIONS TEACHER [facility] MPV 11.6 9.4 - 12.9 fl 11/08/2013 8:20 PM [facility] Neutrophils % 82.4(H) 44.0 - 73.0 % 11/08/2013 8:20 PM [facility] Lymphocytes % 9.1(L) 20.0 - 43.0 % 11/08/2013 8:20 PM [facility] Monocytes % 8.0 5.0 - 13.0 % 11/08/2013 8:20 PM [facility] Eosinophils % 0.3 0.0 - 6.0 % 11/08/2013 8:20 PM LABOR RELATIONS TEACHER [facility] Basophils % 0.0 0.0 - 2.0 % 11/08/2013 8:20 PM [facility] Immature Granulocytes 0.2 0 - 1 % 11/08/2013 8:20 PM [facility] Neutrophil Absolute 8.74(H) 2.01 - 7.14 x10^9/L 11/08/2013 8:20 PM LABOR RELATIONS TEACHER [facility] Lymphocytes Absolute 0.97(L) 1.07 - 3.94 x10^9/L 11/08/2013 8:20 PM LABOR RELATIONS TEACHER [facility] Monocytes Absolute 0.85 0.26 - 1.07 x10^9/L 11/08/2013 8:20 PM LABOR RELATIONS TEACHER [facility] Eosinophils Absolute 0.03 0 - 0.47 x10^9/L 11/08/2013 8:20 PM [facility] Basophils Absolute 0.00 0 - 0.08 x10^9/L 11/08/2013 8:20 PM LABOR RELATIONS TEACHER [facility] Immature Granulocytes Absolute 0.02 0.00 - 0.06 x10^9/L 11/08/2013 8:20 PM [facility] Blood BLOOD SPECIMEN / Unknown 11/08/2013 3:48 AM LABOR RELATIONS TEACHER 11/08/2013 5:11 AM LABOR RELATIONS TEACHER Oren Manzano MD LAB - HEMATOLOGY ORDERABLES Performing Organization Address City/[facility]/ZIP Co de Phone Number [facility] [address] [place] [address] * (ABNORMAL) BASIC METABOLIC PANEL (CALCIUM TOTAL) (11/08/2013 3:48 AM LABOR RELATIONS TEACHER) Pathologist [facility] Glucose 61(L) 74 - 106 mg/dL 11/08/2013 5:38 AM [facility] Sodium 142 136 - 145 mmol/L 11/08/2013 5:38 AM [facility] Potassium 3.9 3.5 - 5.1 mmol/L 11/08/2013 5:38 AM [facility] Chloride 94(L) 98 - 107 mmol/L 11/08/2013 5:38 AM [facility] CO2 >45(HH) 22 - 31 mmol/L 11/08/2013 5:38 AM [facility] Calcium 9.0 8.5 - 10.1 mg/dL 11/08/2013 5:38 AM [facility] Anion Gap 5 - 15 mmol/L 11/08/2013 5:38 AM [facility] BUN 26(H) 7 - 21 mg/dL 11/08/2013 5:38 AM [facility] Creatinine 0.35(L) 0.50 - 1.30 mg/dL 11/08/2013 5:38 AM [facility] eGFR by MDRD >60 >60 mL/min/1.7 3m2 11/08/2013 5:38 AM [facility] eGFR by MDRD >60 >60 mL/min/1.7 3m2 11/08/2013 5:38 AM [facility] Blood BLOOD SPECIMEN / Unknown 11/08/2013 3:48 AM LABOR RELATIONS TEACHER 11/08/2013 5:11 AM LABOR RELATIONS TEACHER Oren Manzano MD LAB - CHEMISTRY O RDERABLES [facility] [address] [place] [address] * (ABNORMAL) GLUCOSE - POINT OF CARE (11/07/2013 9:14 PM LABOR RELATIONS TEACHER) Blood BLOOD SPECIMEN / Unknown 11/07/2013 9:14 PM LABOR RELATIONS TEACHER 11/07/2013 9:32 PM LABOR RELATIONS TEACHER Bk Lemus MD LAB - POINT OF CARE ORDERABLES Performing Organization Address [facility] de Phone Number [facility] [address] [place] [address] * GLUCOSE - POINT OF CARE (11/07/2013 3:54 PM LABOR RELATIONS TEACHER) Glucose WB/POC 73 70 - 106 mg/dL 11/07/2013 5:46 PM LABOR RELATIONS TEACHER [facility] Blood BLOOD SPECIMEN / Unknown 11/07/2013 3:54 PM LABOR RELATIONS TEACHER 11/07/2013 5:46 PM LABOR RELATIONS TEACHER Bk Lemus MD LAB - POINT OF CARE ORDERABLES Performing Organization Address [facility] de Phone Number [facility] [address] [place] [address] * BLOOD GAS ART+LYTES+H&H POCT NOTIFICATION (11/07/2013 3:24 PM LABOR RELATIONS TEACHER) Comment Notification Only - See Separate Report 11/07/2013 5:00 PM LABOR RELATIONS TEACHER [facility] Blood BLOOD SPECIMEN / Unknown 11/07/2013 3:24 PM LABOR RELATIONS TEACHER 11/07/2013 3:24 PM LABOR RELATIONS TEACHER Oren Manzano MD LAB - BLOOD GASES ORDERABLES Performing Organization Address [facility] de Phone Number [facility] [address] [place] [address] * (ABNORMAL) GLUCOSE - POINT OF CARE (11/07/2013 12:31 PM LABOR RELATIONS TEACHER) Glucose WB/POC 113(H) 70 - 106 mg/dL 11/07/2013 1:15 PM LABOR RELATIONS TEACHER [facility] Blood BLOOD SPECIMEN / Unknown 11/07/2013 12:31 PM LABOR RELATIONS TEACHER 11/07/2013 1:14 PM LABOR RELATIONS TEACHER Bk Lemus MD LAB - POINT OF CARE ORDERABLES [facility] [address] [place] [address] * XR CHEST PA OR AP (11/07/2013 10:26 AM LABOR RELATIONS TEACHER) Anatomical Region Laterality Modality Chest Radiographic Tracey ging 11/07/2013 10:3 4 AM LABOR RELATIONS TEACHER Narrative 11/07/2013 10:35 AM LABOR RELATIONS TEACHER Examination: Chest single view portable. Indication for examination: Shortness of breath. Single AP view of the chest is compared with November 04, 2013. There is developing left lower lobe infiltrate and atelectasis increased from the previous. There also is slightly reduced lung volume right base. There is no pneumothorax. Cardiomegaly persists. Pulmonary vascularity remains mildly prominent. Conclusion: Increased infiltrate and atelectasis left mid and left lower lung zone. Slightly reduced aeration right base. Procedure Note Hugo Clark MD - 11/07/2013 Examination: Chest single view portable. Indication for examination: Shortness of breath. Single AP view of the chest is compared with November 04, 2013. There is developing left lower lobe infiltrate and atelectasis increased from the previous. There also is slightly reduced lung volume right base. There is no pneumothorax. Cardiomegaly persists. Pulmonary vascularity remains mildly prominent. Conclusion: Increased infiltrate and atelectasis left mid and left lower lung zone. Slightly reduced aeration right base. Oren Manzano MD DIAGNOSTIC ANDER Cameron ORDERABLES * (ABNORMAL) BLOOD GASES ART + LYTES GLU CA+ HH (ISTAT) (11/07/2013 10:21 AM LABOR RELATIONS TEACHER) pH Arterial POCT 7.43 7.35 - 7.45 pH 11/07/2013 10:57 AM LABOR RELATIONS TEACHER [facility] pCO2 Arterial 86.9(H) 32 - 43 mmHg 11/07/2013 10:57 AM LABOR RELATIONS TEACHER [facility] pO2 Arterial 73 72 - 104 mmHg 11/07/2013 10:57 AM LABOR RELATIONS TEACHER [facility] HCO3 Arterial POCT 57.2(H) 22 - 26 mmol/L 11/07/2013 10:57 AM LABOR RELATIONS TEACHER [facility] BE Arterial 26(H) -2 - 2 mmol/L 11/07/2013 10:57 AM [facility] TCO2 Arterial Calc POCT >50(H) 22 - 29 mmol/L 11/07/2013 10:57 AM [facility] O2 Saturation Arterial 93 90 - 100 % 11/07/2013 10:57 AM [facility] Sodium Arterial 138 136 - 145 mmol/L 11/07/2013 10:57 AM [facility] Potassium Arterial 4.1 3.5 - 5.1 mmol/L 11/07/2013 10:57 AM [facility] Calcium Ionized Arterial POCT 1.20 1.12 - 1.32 mmol/L 11/07/2013 10:57 AM [facility] Glucose Arterial POCT 79 74 - 106 mg/dL 11/07/2013 10:57 AM [facility] Hemoglobin Arterial POCT 16.0 12.0 - 17.6 g/dL 11/07/2013 10:57 AM [facility] Hematocrit Arterial POCT 47.0 35.2 - 51.7 %PCV 11/07/2013 10:57 AM [facility] Site R Radial 11/07/2013 10:57 AM [facility] Edy's Test NA 11/07/2013 10:57 AM [facility] Treatment Delivery Method BiPAP 11/07/2013 10:57 AM [facility] FI O2 70 % 11/07/2013 10:57 AM [facility] Sample iSTAT ARTERI 11/07/2013 10:57 AM [facility] EPAP 6 11/07/2013 10:57 AM [facility] IPAP 24 11/07/2013 10:57 AM [facility] PT iSTAT [id number] 11/07/2013 10:57 AM [facility] CPB iSTAT No 11/07/2013 10:57 AM [facility] Blood ARTERIAL BLOOD SPECIMEN / Unknown 11/07/2013 10:21 AM LABOR RELATIONS TEACHER 11/07/2013 10:56 AM LABOR RELATIONS TEACHER Bk Lemus MD LAB - POINT OF CARE ORDERABLES [facility] [address] [place] [address] * GLUCOSE - POINT OF CARE (11/07/2013 8:11 AM LABOR RELATIONS TEACHER) Glucose WB/POC 75 70 - 106 mg/dL 11/07/2013 11:13 AM LABOR RELATIONS TEACHER [facility] Blood BLOOD SPECIMEN / Unknown 11/07/2013 8:11 AM LABOR RELATIONS TEACHER 11/07/2013 11:13 AM LABOR RELATIONS TEACHER Bk Lemus MD LAB - POINT OF CARE ORDERABLES Performing Organization Address City/[facility] [[email or web address] Co de Phone Number [facility] [address] [place] [address] * GLUCOSE - POINT OF CARE (11/06/2013 9:18 PM LABOR RELATIONS TEACHER) Glucose WB/POC 105 70 - 106 mg/dL 11/07/2013 12:25 AM LABOR RELATIONS TEACHER [facility] Blood BLOOD SPECIMEN / Unknown 11/06/2013 9:18 PM LABOR RELATIONS TEACHER 11/07/2013 12:25 AM LABOR RELATIONS TEACHER Narrative [facility] - 11/07/2013 12:25 AM LABOR RELATIONS TEACHER NOTIFIED CAREGIVER Bk Lemus MD LAB - POINT OF CARE ORDERABLES Performing Organization Address [facility] [[email or web address] Co de Phone Number [facility] [address] [place] [address] * GLUCOSE - POINT OF CARE (11/06/2013 4:58 PM LABOR RELATIONS TEACHER) Glucose WB/POC 82 70 - 106 mg/dL 11/07/2013 11:10 AM LABOR RELATIONS TEACHER [facility] Blood BLOOD SPECIMEN / Unknown 11/06/2013 4:58 PM LABOR RELATIONS TEACHER 11/07/2013 11:10 AM LABOR RELATIONS TEACHER Bk Lemus MD LAB - POINT OF CARE ORDERABLES Performing Organization Address [facility] de Phone Number [facility] [address] [place] [address] * (ABNORMAL) GLUCOSE - POINT OF CARE (11/06/2013 1:05 PM LABOR RELATIONS TEACHER) Glucose WB/POC 165(H) 70 - 106 mg/dL 11/07/2013 11:12 AM LABOR RELATIONS TEACHER [facility] Blood BLOOD SPECIMEN / Unknown 11/06/2013 1:05 PM LABOR RELATIONS TEACHER 11/07/2013 11:12 AM LABOR RELATIONS TEACHER Bk Lemus MD LAB - POINT OF CARE ORDERABLES Performing Organization Address [facility] [[email or web address] Co de Phone Number [facility] [address] [place] [address] * (ABNORMAL) GLUCOSE - POINT OF CARE (11/06/2013 5:45 AM LABOR RELATIONS TEACHER) Blood BLOOD SPECIMEN / Unknown 11/06/2013 5:45 AM LABOR RELATIONS TEACHER 11/07/2013 11:12 AM LABOR RELATIONS TEACHER Bk Lemus MD LAB - POINT OF CARE ORDERABLES Performing Organization Address [facility] [[email or web address] Co de Phone Number [facility] [address] [place] [address] * (ABNORMAL) GLUCOSE - POINT OF CARE (11/05/2013 8:26 PM LABOR RELATIONS TEACHER) Glucose WB/POC 239(H) 70 - 106 mg/dL 11/07/2013 11:10 AM LABOR RELATIONS TEACHER [facility] Blood BLOOD SPECIMEN / Unknown 11/05/2013 8:26 PM LABOR RELATIONS TEACHER 11/07/2013 11:10 AM LABOR RELATIONS TEACHER Bk Lemus MD LAB - POINT OF CARE ORDERABLES Performing Organization Address [facility] de Phone Number [facility] [address] [place] [address] * (ABNORMAL) GLUCOSE - POINT OF CARE (11/05/2013 4:57 PM LABOR RELATIONS TEACHER) Glucose WB/POC 148(H) 70 - 106 mg/dL 11/07/2013 11:10 AM LABOR RELATIONS TEACHER [facility] Blood BLOOD SPECIMEN / Unknown 11/05/2013 4:57 PM LABOR RELATIONS TEACHER 11/07/2013 11:10 AM LABOR RELATIONS TEACHER Narrative [facility] - 11/07/2013 11:10 AM LABOR RELATIONS TEACHER GLYCEMIC PROTOCOL Bk Lemus MD LAB - POINT OF CARE ORDERABLES Performing Organization Address [facility] [[email or web address] Co de Phone Number [facility] [address] [place] [address] * (ABNORMAL) GLUCOSE - POINT OF CARE (11/05/2013 12:01 PM LABOR RELATIONS TEACHER) Glucose WB/POC 237(H) 70 - 106 mg/dL 11/07/2013 11:12 AM LABOR RELATIONS TEACHER [facility] Blood BLOOD SPECIMEN / Unknown 11/05/2013 12:01 PM LABOR RELATIONS TEACHER 11/07/2013 11:12 AM LABOR RELATIONS TEACHER Narrative [facility] - 11/07/2013 11:12 AM LABOR RELATIONS TEACHER NOTIFIED CAREGIVER Bk Lemus MD LAB - POINT OF CARE ORDERABLES Performing Organization Address City/[facility]/ZIP Co de Phone Number [facility] [address] [place] [address] * (ABNORMAL) GLUCOSE - POINT OF CARE (11/05/2013 8:27 AM LABOR RELATIONS TEACHER) Glucose WB/POC 205(H) 70 - 106 mg/dL 11/07/2013 11:09 AM LABOR RELATIONS TEACHER [facility] Blood BLOOD SPECIMEN / Unknown 11/05/2013 8:27 AM LABOR RELATIONS TEACHER 11/07/2013 11:09 AM LABOR RELATIONS TEACHER Narrative [facility] - 11/07/2013 11:09 AM LABOR RELATIONS TEACHER GLYCEMIC PROTOCOL Bk Lemus MD LAB - POINT OF CARE ORDERABLES Performing Organization Address [facility] [[email or web address] Co de Phone Number [facility] [address] [place] [address] * (ABNORMAL) GLUCOSE - POINT OF CARE (11/05/2013 5:54 AM LABOR RELATIONS TEACHER) Glucose WB/POC 213(H) 70 - 106 mg/dL 11/07/2013 11:11 AM LABOR RELATIONS TEACHER [facility] Blood BLOOD SPECIMEN / Unknown 11/05/2013 5:54 AM LABOR RELATIONS TEACHER 11/07/2013 11:11 AM LABOR RELATIONS TEACHER Bk Lemus MD LAB - POINT OF CARE ORDERABLES Performing Organization Address [facility] [[email or web address] Co de Phone Number [facility] [address] [place] [address] * (ABNORMAL) BASIC METABOLIC PANEL (CALCIUM TOTAL) (11/05/2013 5:09 AM LABOR RELATIONS TEACHER) Glucose 237(H) 74 - 106 mg/dL 11/05/2013 5:50 AM [facility] Sodium 137 136 - 145 mmol/L 11/05/2013 5:50 AM [facility] Potassium 5.0 3.5 - 5.1 mmol/L 11/05/2013 5:50 AM [facility] Chloride 89(L) 98 - 107 mmol/L 11/05/2013 5:50 AM [facility] CO2 >45(HH) 22 - 31 mmol/L 11/05/2013 5:50 AM [facility] Calcium 8.9 8.5 - 10.1 mg/dL 11/05/2013 5:50 AM [facility] Anion Gap 5 - 15 mmol/L 11/05/2013 5:50 AM [facility] Comment:Not calculated due t o CO2 = >45 BUN 22(H) 7 - 21 mg/dL 11/05/2013 5:50 AM [facility] Creatinine 0.41(L) 0.50 - 1.30 mg/dL 11/05/2013 5:50 AM [facility] eGFR by MDRD >60 >60 mL/min/1.7 3m2 11/05/2013 5:50 AM [facility] eGFR by MDRD >60 >60 mL/min/1.7 3m2 11/05/2013 5:50 AM [facility] Blood BLOOD SPECIMEN / Unknown 11/05/2013 5:09 AM LABOR RELATIONS TEACHER 11/05/2013 5:21 AM LABOR RELATIONS TEACHER Oren Manzano MD LAB - CHEMISTRY O RDERABLES Performing Organization Address City/[facility] [[email or web address] Co de Phone Number [facility] [address] [place] [address] * (ABNORMAL) GLUCOSE - POINT OF CARE (11/04/2013 9:15 PM LABOR RELATIONS TEACHER) [facility] Glucose WB/POC 225(H) 70 - 106 mg/dL 11/05/2013 12:23 AM LABOR RELATIONS TEACHER [facility] Blood BLOOD SPECIMEN / Unknown 11/04/2013 9:15 PM LABOR RELATIONS TEACHER 11/05/2013 12:23 AM LABOR RELATIONS TEACHER Bk Lemus MD LAB - POINT OF CARE ORDERABLES Performing Organization Address [facility] [[email or web address] Co de Phone Number [facility] [address] [place] [address] * (ABNORMAL) GLUCOSE - POINT OF CARE (11/04/2013 3:57 PM LABOR RELATIONS TEACHER) Glucose WB/POC 198(H) 70 - 106 mg/dL 11/04/2013 4:00 PM LABOR RELATIONS TEACHER [facility] Blood BLOOD SPECIMEN / Unknown 11/04/2013 3:57 PM LABOR RELATIONS TEACHER 11/04/2013 4:00 PM LABOR RELATIONS TEACHER Narrative [facility] - 11/04/2013 4:00 PM LABOR RELATIONS TEACHER NOTIFIED CAREGIVER Bk Lemus MD LAB - POINT OF CARE ORDERABLES Performing Organization Address [facility] [[email or web address] Co de Phone Number [facility] [address] [place] [address] * VAS VENOUS DUPLEX LE BILATERAL (11/04/2013 2:28 PM LABOR RELATIONS TEACHER) Anatomical Region Laterality Modality Ultrasound 11/04/2013 1:49 PM LABOR RELATIONS TEACHER Narrative Procedure Note Armen Wilder MD - 11/04/[address] [address] Lower Extremity Venous Ultrasound Report Pat.Name: JP KNOX Fatmata Pat.ID: [id number] .Date: 11/04/2013 Exam Time: 1:49:00 PM Study Type:LE Venous Age: 2 1960,52Y Sex: MALE Sonogrphr: Vinnie Chappell RVT Pat. Stat.:Inpatient Room: 701 Reason for Study:Shortness of breath History / Clinical:Diabetes, Obesity, Congestive heart failure, COPD, CVA, Myocardial infarction, Asthma, High cholesterol Procedures:Lower Extremity Venous - Bilateral Visit ID: [id number] SUMMARY: There is no evidence of an [...] Lemus MD VASCULAR LAB ORDERAB LES * (ABNORMAL) GLUCOSE - POINT OF CARE (11/04/2013 12:58 PM LABOR RELATIONS TEACHER) [facility] Glucose WB/POC 267(H) 70 - 106 mg/dL 11/04/2013 1:07 PM LABOR RELATIONS TEACHER [facility] Blood BLOOD SPECIMEN / Unknown 11/04/2013 12:58 PM LABOR RELATIONS TEACHER 11/04/2013 1:07 PM LABOR RELATIONS TEACHER Bk Lemus MD LAB - POINT OF CARE ORDERABLES [facility] [address] [place] [address] * ECHOCARDIOGRAM 2D WITH DOPPLER (11/04/2013 11:48 AM LABOR RELATIONS TEACHER) 11/04/2013 11:4 8 AM LABOR RELATIONS TEACHER Narrative [facility] - 11/04/2013 3:07 PM LABOR RELATIONS TEACHER ECHOCARDIOGRAPHY REPORT [address] [id number] Transthoracic Echocardiogram 2D, M-mode, Doppler, and Color Doppler Date of Service: ??11/04/2013 Patient: JP KNOX [facility] #: [id number] : 1960 Age: 52 years Gender: Male Race: Height: 64 in Weight: 212 lb BSA: 2.01 m?? Diagnoses: 518.83 - CHRONIC RESPIRATORY FAIL Reading Physician: ??Michael Garsia MD Referring Physician: ??June Bourgeois MD CLOCKMAKER APPRENTICE: ??[facility] Group: ??[facility] Summary: - ??History: - ??copd, asthma, chf, dm, cva - ??Procedure information: - ??[facility] room 701 @ 11:48 - ??Left ventricle: [...] Procedure: The study was performed in the [facility]. This was a routine study. [facility] room 701 @ 11:48 The transthoracic approach [...] MV A Elan: 0.7 m/s MV Dec Seneca: 4.7 m/s2 MV E Elan: 1 m/s Prepared and signed by Michael Garsia MD Signed 11/04/2013 15:06:56 Procedure Note 11/04/2013 ECHOCARDIOGRAPHY REPORT [address] [id number] Transthoracic Echocardiogram 2D, M-mode, Doppler, and Color Doppler Date of Service: 11/04/2013 Patient: JP KNOX : 1960 Age: 52 years Gender: Male Race: Height: 64 in Weight: 212 lb BSA: 2.01 m?? Diagnoses: 518.83 - CHRONIC RESPIRATORY FAIL Reading Physician: Michael Garsia MD Referring Physician: June Bourgeois MD CLOCKMAKER APPRENTICE: [facility] Group: [facility] Summary: - History: - copd, asthma, chf, dm, cva - Procedure information: - [facility] room 701 @ 11:48 - Left ventricle: [...] Procedure: The study was performed in the [facility]. This was a routine study. [facility] room 701 @ 11:48 The transthoracic approach [...] MV A Elan: 0.7 m/s MV Dec Seneca: 4.7 m/s2 MV E Elan: 1 m/s Prepared and signed by Michael Garsia MD Signed 11/04/2013 15:06:56 Bk Lemus MD ECHO ORDERABLES [facility] * XR CHEST 1VW PORTABLE (11/04/2013 9:33 AM LABOR RELATIONS TEACHER) Anatomical Region Laterality Modality Chest Radiographic Tracey ging 11/04/2013 9:55 AM LABOR RELATIONS TEACHER Impressions 11/04/2013 11:45 AM LABOR RELATIONS TEACHER Improved aeration left lung. Persistent pulmonary vascular congestion and cardiomegaly. Right effusion. Edited by Patricia Sam on 11/04/2013 9:59 AM Narrative 11/04/2013 11:45 AM LABOR RELATIONS TEACHER CHEST AP PORTABLE INDICATION: shortness of breath. FINDINGS: Frontal view of the chest compared to November 03, 2013, shows bilateral pulmonary vascular congestion. A left pleural effusion has decreased, and there is improved aeration left lung. The heart size remains enlarged. Overlying monitor leads are present. A small bibasilar pleural effusion is still identified. Procedure Note Luis Bustillos MD - 11/04/2013 CHEST AP PORTABLE INDICATION: shortness of breath. FINDINGS: Frontal view of the chest compared to November 03, 2013, shows bilateral pulmonary vascular congestion. A left pleural effusion has decreased, and there is improved aeration left lung. The heart size remains enlarged. Overlying monitor leads are present. A small bibasilar pleural effusion is still identified. IMPRESSION Improved aeration left lung. Persistent pulmonary vascular congestion and cardiomegaly. Right effusion. Edited by Ptaricia Sam on 11/04/2013 9:59 AM Oren Manzano MD DIAGNOSTIC ANDER Cameron ORDERABLES * (ABNORMAL) GLUCOSE - POINT OF CARE (11/04/2013 7:58 AM LABOR RELATIONS TEACHER) Glucose WB/POC 234(H) 70 - 106 mg/dL 11/04/2013 8:33 AM LABOR RELATIONS TEACHER [facility] Blood BLOOD SPECIMEN / Unknown 11/04/2013 7:58 AM LABOR RELATIONS TEACHER 11/04/2013 8:33 AM LABOR RELATIONS TEACHER Bk Lemus MD LAB - POINT OF CARE ORDERABLES Performing Organization Address City/State/[facility] [[email or web address] Co de Phone Number [facility] [address] [place] [address] * (ABNORMAL) RENAL FUNCTION PANEL (11/04/2013 6:01 AM LABOR RELATIONS TEACHER) Pathologist [facility] Glucose 242(H) 74 - 106 mg/dL 11/04/2013 7:02 AM [facility] Sodium 139 136 - 145 mmol/L 11/04/2013 7:02 AM [facility] Potassium 4.9 3.5 - 5.1 mmol/L 11/04/2013 7:02 AM [facility] Chloride 89(L) 98 - 107 mmol/L 11/04/2013 7:02 AM [facility] CO2 >45(HH) 22 - 31 mmol/L 11/04/2013 7:02 AM [facility] Calcium 8.7 8.5 - 10.1 mg/dL 11/04/2013 7:02 AM [facility] Anion Gap 5 - 15 mmol/L 11/04/2013 7:02 AM [facility] BUN 23(H) 7 - 21 mg/dL 11/04/2013 7:02 AM [facility] Creatinine 0.49(L) 0.50 - 1.30 mg/dL 11/04/2013 7:02 AM [facility] Albumin 2.9(L) 3.4 - 5.0 gm/dL 11/04/2013 7:02 AM LABOR RELATIONS TEACHER [facility] Phosphorus 4.0 2.5 - 4.9 mg/dL 11/04/2013 7:02 AM LABOR RELATIONS TEACHER [facility] eGFR by MDRD >60 >60 mL/min/1.7 3m2 11/04/2013 7:02 AM LABOR RELATIONS TEACHER [facility] eGFR by MDRD >60 >60 mL/min/1.7 3m2 11/04/2013 7:02 AM LABOR RELATIONS TEACHER [facility] Blood BLOOD SPECIMEN / Unknown 11/04/2013 6:01 AM LABOR RELATIONS TEACHER 11/04/2013 6:31 AM LABOR RELATIONS TEACHER Bk Lemus MD LAB - CHEMISTRY LAKISHA CRAIG Performing Organization Address City/[facility]/ZIP Co de Phone Number [facility] [address] [place] [address] * VITAMIN B12 (11/04/2013 6:01 AM LABOR RELATIONS TEACHER) Vitamin B12 438 211 - 911 pg/mL 11/04/2013 12:03 PM LABOR RELATIONS TEACHER [facility] Blood BLOOD SPECIMEN / Unknown 11/04/2013 6:01 AM LABOR RELATIONS TEACHER 11/04/2013 6:31 AM LABOR RELATIONS TEACHER Bk Lemus MD LAB - CHEMISTRY LAKISHA CRAIG Performing Organization Address City/[facility]/ZIP Co de Phone Number [facility] [address] [place] [address] * (ABNORMAL) GLUCOSE - POINT OF CARE (11/03/2013 9:15 PM LABOR RELATIONS TEACHER) Glucose WB/POC 228(H) 70 - 106 mg/dL 11/03/2013 9:25 PM LABOR RELATIONS TEACHER [facility] Blood BLOOD SPECIMEN / Unknown 11/03/2013 9:15 PM LABOR RELATIONS TEACHER 11/03/2013 9:25 PM LABOR RELATIONS TEACHER Bk Lemus MD LAB - POINT OF CARE ORDERABLES Performing Organization Address City/[facility]/ZIP Co de Phone Number [facility] [address] [place] [address] * (ABNORMAL) GLUCOSE - POINT OF CARE (11/03/2013 6:31 PM LABOR RELATIONS TEACHER) Glucose WB/POC 152(H) 70 - 106 mg/dL 11/03/2013 8:56 PM LABOR RELATIONS TEACHER [facility] Blood BLOOD SPECIMEN / Unknown 11/03/2013 6:31 PM LABOR RELATIONS TEACHER 11/03/2013 8:56 PM LABOR RELATIONS TEACHER Bk Lemus MD LAB - POINT OF CARE ORDERABLES Performing Organization Address [facility] [[email or web address] Co de Phone Number [facility] [address] [place] [address] * (ABNORMAL) GLUCOSE - POINT OF CARE (11/03/2013 11:16 AM LABOR RELATIONS TEACHER) Glucose WB/POC 321(H) 70 - 106 mg/dL 11/03/2013 11:25 AM LABOR RELATIONS TEACHER [facility] Blood BLOOD SPECIMEN / Unknown 11/03/2013 11:16 AM LABOR RELATIONS TEACHER 11/03/2013 11:25 AM LABOR RELATIONS TEACHER Bk Lemus MD LAB - POINT OF CARE ORDERABLES Performing Organization Address [facility] de Phone Number [facility] [address] [place] [address] * XR CHEST 1VW PORTABLE (11/03/2013 10:13 AM LABOR RELATIONS TEACHER) Anatomical Region Laterality Modality Chest Radiographic Tracey ging 11/03/2013 11:1 7 AM LABOR RELATIONS TEACHER Impressions 11/03/2013 11:27 AM LABOR RELATIONS TEACHER There is an interval significant increase in volume loss in the left hemithorax. Deviation of mediastinal structures to the left indicate a significant component of atelectasis, although consolidation may be present as well. Infiltrates in the right lung have improved. Edited by Patricia Sam on 11/03/2013 11:23 AM Narrative 11/03/2013 11:27 AM LABOR RELATIONS TEACHER PORTABLE AP CHEST INDICATION: Chronic airway obstruction, not elsewhere classified short of breath. COMPARISON: November 02, 2013 DATE AND TIME OF EXAMINATION: ??11/03/2013 11:17 AM FINDINGS: Single AP view of the chest shows atelectasis or infiltrate has increased significantly in the left hemithorax since previous examination. There is no mediastinal deviation to the left indicating a significant component of atelectasis. Atelectasis or infiltrate in the right lower lobe is slightly improved. Interstitial prominence throughout the right lung has improved. The right costophrenic angle is blunted consistent with a small pleural effusion. This is without significant change. Procedure Note Elba Mistry MD - 11/03/2013 PORTABLE AP CHEST INDICATION: Chronic airway obstruction, not elsewhere classified short of breath. COMPARISON: November 02, 2013 DATE AND TIME OF EXAMINATION: 11/03/2013 11:17 AM FINDINGS: Single AP view of the chest shows atelectasis or infiltrate has increased significantly in the left hemithorax since previous examination. There is no mediastinal deviation to the left indicating a significant component of atelectasis. Atelectasis or infiltrate in the right lower lobe is slightly improved. Interstitial prominence throughout the right lung has improved. The right costophrenic angle is blunted consistent with a small pleural effusion. This is without significant change. IMPRESSION There is an interval significant increase in volume loss in the left hemithorax. Deviation of mediastinal structures to the left indicate a significant component of atelectasis, although consolidation may be present as well. Infiltrates in the right lung have improved. Edited by Patricia Sam on 11/03/2013 11:23 AM Jose Messer PA-C DIAGNOSTIC IMAGING O RDERABLES * (ABNORMAL) GLUCOSE - POINT OF CARE (11/03/2013 7:48 AM LABOR RELATIONS TEACHER) Glucose WB/POC 232(H) 70 - 106 mg/dL 11/03/2013 8:11 AM LABOR RELATIONS TEACHER [facility] Blood BLOOD SPECIMEN / Unknown 11/03/2013 7:48 AM LABOR RELATIONS TEACHER 11/03/2013 8:11 AM LABOR RELATIONS TEACHER Bk Lemus MD LAB - POINT OF CARE ORDERABLES [facility] [address] [place] [address] * (ABNORMAL) BLOOD GASES ART (ISTAT) (11/03/2013 4:58 AM LABOR RELATIONS TEACHER) Blood ARTERIAL BLOOD SPECIMEN / Unknown 11/03/2013 4:58 AM LABOR RELATIONS TEACHER 11/03/2013 5:12 AM LABOR RELATIONS TEACHER Bk Lemus MD LAB - POINT OF CARE ORDERABLES [facility] [address] [place] [address] * (ABNORMAL) CBC W/O DIFFERENTIAL (11/03/2013 4:52 AM LABOR RELATIONS TEACHER) WBC 11.8(H) 4.4 - 10.7 x10^9/L 11/03/2013 5:06 AM [facility] RBC 4.58 3.80 - 5.40 x10^12/L 11/03/2013 5:06 AM [facility] Hemoglobin 13.7 12.0 - 17.6 gm/dL 11/03/2013 5:06 AM [facility] Hematocrit 47.5 35.2 - 51.7 % 11/03/2013 5:06 AM [facility] MCV 103.7(H) 80.7 - 98.3 fl 11/03/2013 5:06 AM [facility] MCH 29.9 26.7 - 34.0 pg 11/03/2013 5:06 AM [facility] MCHC 28.8(L) 30.8 - 35.9 gm/dL 11/03/2013 5:06 AM [facility] Platelet Count 178 153 - 416 x10^9/L 11/03/2013 5:06 AM [facility] RDW-CV 15.8(H) 12.1 - 14.9 % 11/03/2013 5:06 AM [facility] MPV 10.2 9.4 - 12.9 fl 11/03/2013 5:06 AM [facility] Blood BLOOD SPECIMEN / Unknown 11/03/2013 4:52 AM LABOR RELATIONS TEACHER 11/03/2013 5:00 AM LABOR RELATIONS TEACHER Jose Messer PA-C LAB - HEMATOLOGY ORD ERABLES Performing Organization Address City/[facility]/ZIP Co de Phone Number [facility] [address] [place] [address] * (ABNORMAL) BASIC METABOLIC PANEL (CALCIUM TOTAL) (11/03/2013 4:52 AM LABOR RELATIONS TEACHER) Glucose 250(H) 74 - 106 mg/dL 11/03/2013 5:38 AM [facility] Sodium 139 136 - 145 mmol/L 11/03/2013 5:38 AM [facility] Potassium 4.8 3.5 - 5.1 mmol/L 11/03/2013 5:38 AM [facility] Chloride 92(L) 98 - 107 mmol/L 11/03/2013 5:38 AM [facility] CO2 >45(HH) 22 - 31 mmol/L 11/03/2013 5:38 AM [facility] Calcium 8.5 8.5 - 10.1 mg/dL 11/03/2013 5:38 AM [facility] Anion Gap 5 - 15 mmol/L 11/03/2013 5:38 AM [facility] BUN 26(H) 7 - 21 mg/dL 11/03/2013 5:38 AM [facility] Creatinine 0.55 0.50 - 1.30 mg/dL 11/03/2013 5:38 AM [facility] eGFR by MDRD >60 >60 mL/min/1.7 3m2 11/03/2013 5:38 AM [facility] eGFR by MDRD >60 >60 mL/min/1.7 3m2 11/03/2013 5:38 AM [facility] Blood BLOOD SPECIMEN / Unknown 11/03/2013 4:52 AM LABOR RELATIONS TEACHER 11/03/2013 5:00 AM LABOR RELATIONS TEACHER Narrative [facility] - 11/03/2013 5:38 AM LABOR RELATIONS TEACHER This specimen was a arterial stick Jose Messer PA-C LAB - CHEMISTRY ORDE RABLES Performing Organization Address City/[facility] [[email or web address] Co de Phone Number [facility] [address] [place] [address] * BLOOD GASES ARTERIAL POCT (11/03/2013 1:01 AM LABOR RELATIONS TEACHER) Comment Notification Only - See Separate Report 11/03/2013 3:00 AM [facility] Blood BLOOD SPECIMEN / Unknown 11/03/2013 1:01 AM LABOR RELATIONS TEACHER 11/03/2013 1:01 AM LABOR RELATIONS TEACHER Jose Messer PA-C LAB - BLOOD GASES OR DERABLES Performing Organization Address [facility] [[email or web address]] Co de Phone Number [facility] [address] [place] [address] * (ABNORMAL) GLUCOSE - POINT OF CARE (11/02/2013 9:36 PM LABOR RELATIONS TEACHER) Glucose WB/POC 300(H) 70 - 106 mg/dL 11/02/2013 11:51 PM LABOR RELATIONS TEACHER [facility] Blood BLOOD SPECIMEN / Unknown 11/02/2013 9:36 PM LABOR RELATIONS TEACHER 11/02/2013 11:51 PM LABOR RELATIONS TEACHER Bk Lemus MD LAB - POINT OF CARE ORDERABLES Performing Organization Address [facility] [[email or web address]] Co de Phone Number [facility] [address] [place] [address] * (ABNORMAL) GLUCOSE - POINT OF CARE (11/02/2013 3:36 PM LABOR RELATIONS TEACHER) Glucose WB/POC 251(H) 70 - 106 mg/dL 11/02/2013 3:44 PM LABOR RELATIONS TEACHER [facility] Blood BLOOD SPECIMEN / Unknown 11/02/2013 3:36 PM LABOR RELATIONS TEACHER 11/02/2013 3:44 PM LABOR RELATIONS TEACHER Bk Lemus MD LAB - POINT OF CARE ORDERABLES Performing Organization Address [facility] [[email or web address]] Co de Phone Number [facility] [address] [place] [address] * (ABNORMAL) GLUCOSE - POINT OF CARE (11/02/2013 10:04 AM LABOR RELATIONS TEACHER) Glucose WB/POC 266(H) 70 - 106 mg/dL 11/02/2013 12:13 PM LABOR RELATIONS TEACHER [facility] Blood BLOOD SPECIMEN / Unknown 11/02/2013 10:04 AM LABOR RELATIONS TEACHER 11/02/2013 12:13 PM LABOR RELATIONS TEACHER Bk Lemus MD LAB - POINT OF CARE ORDERABLES Performing Organization Address [facility] de Phone Number [facility] [address] [place] [address] * XR CHEST 1VW PORTABLE (11/02/2013 9:08 AM LABOR RELATIONS TEACHER) Anatomical Region Laterality Modality Chest Radiographic Tracey ging 11/02/2013 9:10 AM LABOR RELATIONS TEACHER Impressions 11/02/2013 9:12 AM LABOR RELATIONS TEACHER Cardiomegaly and what appear to be congestive changes. Narrative 11/02/2013 9:12 AM LABOR RELATIONS TEACHER SINGLE VIEW PORTABLE CHEST INDICATION: Shortness of breath. FINDINGS: A single view portable examination of the chest, 0418 hours, is reviewed in comparison to the 15th 13 hour study of one day earlier. There is been a further interval increase in heart size. There are increased interstitial and pulmonary vascular markings, bilaterally. Opacity at the left base suggests a left pleural effusion and/or superimposed infiltrate/atelectasis. Procedure Note Tyrel Treviño MD - 11/02/2013 SINGLE VIEW PORTABLE CHEST INDICATION: Shortness of breath. FINDINGS: A single view portable examination of the chest, 0418 hours, is reviewed in comparison to the 15th 13 hour study of one day earlier. There is been a further interval increase in heart size. There are increased interstitial and pulmonary vascular markings, bilaterally. Opacity at the left base suggests a left pleural effusion and/or superimposed infiltrate/atelectasis. IMPRESSION Cardiomegaly and what appear to be congestive changes. Jose Messer PA-C DIAGNOSTIC IMAGING O RDERABLES * (ABNORMAL) GLUCOSE - POINT OF CARE (11/02/2013 6:10 AM LABOR RELATIONS TEACHER) Glucose WB/POC 252(H) 70 - 106 mg/dL 11/02/2013 6:20 AM LABOR RELATIONS TEACHER [facility] Blood BLOOD SPECIMEN / Unknown 11/02/2013 6:10 AM LABOR RELATIONS TEACHER 11/02/2013 6:20 AM LABOR RELATIONS TEACHER Narrative [facility] - 11/02/2013 6:20 AM LABOR RELATIONS TEACHER GLYCEMIC PROTOCOL Bk Lemus MD LAB - POINT OF CARE ORDERABLES [facility] [address] [place] [address] * CULTURE VRE (11/02/2013 3:18 AM LABOR RELATIONS TEACHER) Culture Negative for VRE 11/02/2013 2:38 PM LABOR RELATIONS TEACHER [facility] MICROBIOLOGY Stool RECTAL SWAB / Unknown 11/02/2013 3:18 AM LABOR RELATIONS TEACHER 11/02/2013 3:22 AM LABOR RELATIONS TEACHER Marbella Ordaz MD LAB - MICROBIOLOGY O GERALDINE Performing Organization Address [facility] [[email or web address]] Co de Phone Number [facility]CROBIOLOGY [address] [facility] [facility] * CULTURE MRSA (11/02/2013 3:18 AM LABOR RELATIONS TEACHER) Culture Negative for MRSA 11/02/2013 1:49 PM LABOR RELATIONS TEACHER [facility] MICROBIOLOGY Microbiology SPECIMEN FROM NASAL FOSSAE / Unknown 11/02/2013 3:18 AM LABOR RELATIONS TEACHER 11/02/2013 3:22 AM LABOR RELATIONS TEACHER Marbella Ordaz MD LAB - MICROBIOLOGY O GERALDINE Performing Organization Address [facility] de Phone Number [facility] MICROBIOLOGY [address] [facility] [address] * (ABNORMAL) CBC W/O DIFFERENTIAL (11/02/2013 3:18 AM LABOR RELATIONS TEACHER) WBC 8.7 4.4 - 10.7 x10^9/L 11/02/2013 3:46 AM LABOR RELATIONS TEACHER [facility] RBC 4.80 3.80 - 5.40 x10^12/L 11/02/2013 3:46 AM [facility] Hemoglobin 14.4 12.0 - 17.6 gm/dL 11/02/2013 3:46 AM [facility] Hematocrit 47.9 35.2 - 51.7 % 11/02/2013 3:46 AM [facility] MCV 99.8(H) 80.7 - 98.3 fl 11/02/2013 3:46 AM [facility] MCH 30.0 26.7 - 34.0 pg 11/02/2013 3:46 AM LABOR RELATIONS TEACHER [facility] MCHC 30.1(L) 30.8 - 35.9 gm/dL 11/02/2013 3:46 AM [facility] Platelet Count 149(L) 153 - 416 x10^9/L 11/02/2013 3:46 AM [facility] RDW-CV 16.2(H) 12.1 - 14.9 % 11/02/2013 3:46 AM [facility] MPV 11.3 9.4 - 12.9 fl 11/02/2013 3:46 AM LABOR RELATIONS TEACHER [facility] Blood BLOOD SPECIMEN / Unknown 11/02/2013 3:18 AM LABOR RELATIONS TEACHER 11/02/2013 3:22 AM LABOR RELATIONS TEACHER Jose Messer PA-C LAB - HEMATOLOGY ORD ERABLES Performing Organization Address City/[facility]/ZIP Co de Phone Number [facility] [address] [place] [address] * (ABNORMAL) BASIC METABOLIC PANEL (CALCIUM TOTAL) (11/02/2013 3:18 AM LABOR RELATIONS TEACHER) [facility] Glucose 329(H) 74 - 106 mg/dL 11/02/2013 3:57 AM [facility] Sodium 140 136 - 145 mmol/L 11/02/2013 3:57 AM [facility] Potassium 5.2(H) 3.5 - 5.1 mmol/L 11/02/2013 3:57 AM [facility] Chloride 95(L) 98 - 107 mmol/L 11/02/2013 3:57 AM [facility] CO2 42(HH) 22 - 31 mmol/L 11/02/2013 3:57 AM [facility] Calcium 8.6 8.5 - 10.1 mg/dL 11/02/2013 3:57 AM [facility] Anion Gap 3(L) 5 - 15 mmol/L 11/02/2013 3:57 AM [facility] BUN 30(H) 7 - 21 mg/dL 11/02/2013 3:57 AM [facility] Creatinine 0.57 0.50 - 1.30 mg/dL 11/02/2013 3:57 AM [facility] eGFR by MDRD >60 >60 mL/min/1.7 3m2 11/02/2013 3:57 AM [facility] eGFR by MDRD >60 >60 mL/min/1.7 3m2 11/02/2013 3:57 AM [facility] Blood BLOOD SPECIMEN / Unknown 11/02/2013 3:18 AM LABOR RELATIONS TEACHER 11/02/2013 3:22 AM LABOR RELATIONS TEACHER Jose Messer PA-C LAB - CHEMISTRY ORDE RABLES [facility] [address] [place] [address] * MAGNESIUM BLOOD (11/02/2013 3:18 AM LABOR RELATIONS TEACHER) Magnesium 2.0 1.6 - 2.6 mg/dL 11/02/2013 4:37 AM [facility] Blood BLOOD SPECIMEN / Unknown 11/02/2013 3:18 AM LABOR RELATIONS TEACHER 11/02/2013 4:31 AM LABOR RELATIONS TEACHER Marbella Ordaz MD LAB - CHEMISTRY SHANEE RAFA [facility] [address] [place] [address] * (ABNORMAL) BLOOD GASES ART (ISTAT) (11/02/2013 3:18 AM [facility]) pH Arterial POCT 7.22(L) 7.35 - 7.45 pH 11/02/2013 3:23 AM [facility] pCO2 Arterial 115.9(H) 32 - 43 mmHg 11/02/2013 3:23 AM [facility] pO2 Arterial 122(H) 72 - 104 mmHg 11/02/2013 3:23 AM [facility] HCO3 Arterial POCT 47.6(H) 22 - 26 mmol/L 11/02/2013 3:23 AM [facility] BE Arterial 13(H) -2 - 2 mmol/L 11/02/2013 3:23 AM [facility] TCO2 Arterial Calc POCT >50(H) 22 - 29 mmol/L 11/02/2013 3:23 AM [facility] O2 Saturation Arterial 97 90 - 100 % 11/02/2013 3:23 AM [facility] Respiratory Rate 14 11/02/19 14 3:23 AM [facility] Site L Radial 11/02/2013 3:23 AM [facility] Edy's Test POS/PASS 11/02/2013 3:23 AM [facility] Treatment Delivery Method BiPAP 11/02/2013 3:23 AM [facility] FI O2 65 % 11/02/2013 3:23 AM [facility] Sample iSTAT ARTERI 11/02/2013 3:23 AM [facility] PT iSTAT [id number] 11/02/2013 3:23 AM LABOR RELATIONS TEACHER [facility] EPAP 6 11/02/2013 3:23 AM LABOR RELATIONS TEACHER [facility] IPAP 24 11/02/2013 3:23 AM LABOR RELATIONS TEACHER [facility] Device 11/02/2013 3:23 AM LABOR RELATIONS TEACHER [facility] Chief Medical Officer ID [id number] 11/02/2013 3:23 AM LABOR RELATIONS TEACHER [facility] Blood ARTERIAL BLOOD SPECIMEN / Unknown 11/02/2013 3:18 AM LABOR RELATIONS TEACHER 11/02/2013 3:23 AM LABOR RELATIONS TEACHER Bk Lemus MD LAB - POINT OF CARE ORDERABLES Performing Organization Address City/[facility]/ZIP Co de Phone Number [facility] [id number] [place] [address] * BLOOD GASES ARTERIAL POCT (11/02/2013 12:18 AM LABOR RELATIONS TEACHER) Comment Notification Only - See Separate Report 11/02/2013 2:00 AM LABOR RELATIONS TEACHER [facility] Blood BLOOD SPECIMEN / Unknown 11/02/2013 12:18 AM LABOR RELATIONS TEACHER 11/02/2013 12:18 AM LABOR RELATIONS TEACHER Jose Messer PA-C LAB - BLOOD GASES OR DERABLES Performing Organization Address [facility] [[email or web address] Co de Phone Number [facility] [address] [place] [address] * (ABNORMAL) GLUCOSE - POINT OF CARE (11/01/2013 11:19 PM LABOR RELATIONS TEACHER) Glucose WB/POC 353(H) 70 - 106 mg/dL 11/01/2013 11:46 PM LABOR RELATIONS TEACHER [facility] Blood BLOOD SPECIMEN / Unknown 11/01/2013 11:19 PM LABOR RELATIONS TEACHER 11/01/2013 11:46 PM LABOR RELATIONS TEACHER Narrative [facility] - 11/01/2013 11:46 PM LABOR RELATIONS TEACHER GLYCEMIC PROTOCOL Bk Lemus MD LAB - POINT OF CARE ORDERABLES Performing Organization Address [facility] [[email or web address] Co de Phone Number [facility] [address] [place] [address] * (ABNORMAL) BASIC METABOLIC PANEL (CALCIUM TOTAL) (11/01/2013 9:35 PM LABOR RELATIONS TEACHER) Glucose 388(H) 74 - 106 mg/dL 11/01/2013 10:02 PM [facility] Sodium 138 136 - 145 mmol/L 11/01/2013 10:02 PM [facility] Potassium 5.2(H) 3.5 - 5.1 mmol/L 11/01/2013 10:02 PM [facility] Chloride 94(L) 98 - 107 mmol/L 11/01/2013 10:02 PM [facility] CO2 44(HH) 22 - 31 mmol/L 11/01/2013 10:02 PM [facility] Calcium 8.7 8.5 - 10.1 mg/dL 11/01/2013 10:02 PM [facility] Anion Gap <1(L) 5 - 15 mmol/L 11/01/2013 10:02 PM [facility] BUN 34(H) 7 - 21 mg/dL 11/01/2013 10:02 PM [facility] Creatinine 0.81 0.50 - 1.30 mg/dL 11/01/2013 10:02 PM [facility] eGFR by MDRD >60 >60 mL/min/1.7 3m2 11/01/2013 10:02 PM [facility] eGFR by MDRD >60 >60 mL/min/1.7 3m2 11/01/2013 10:02 PM [facility] Blood BLOOD SPECIMEN / Unknown 11/01/2013 9:35 PM LABOR RELATIONS TEACHER 11/01/2013 9:38 PM LABOR RELATIONS TEACHER Marbella Ordaz MD LAB - CHEMISTRY ORDFatmata CRAIG Performing Organization Address City/[facility]/ZIP Co de Phone Number [facility] [address] [place] [address] * (ABNORMAL) PHOSPHORUS BLOOD (11/01/2013 9:35 PM LABOR RELATIONS TEACHER) Phosphorus 5.6(H) 2.5 - 4.9 mg/dL 11/01/2013 10:00 PM [facility] Blood BLOOD SPECIMEN / Unknown 11/01/2013 9:35 PM LABOR RELATIONS TEACHER 11/01/2013 9:38 PM LABOR RELATIONS TEACHER Jose Messer PA-C LAB - CHEMISTRY ORDFatmata CRAIG [facility] [address] [place] [address] * MAGNESIUM BLOOD (11/01/2013 9:35 PM LABOR RELATIONS TEACHER) [facility] Magnesium 1.6 1.6 - 2.6 mg/dL 11/01/2013 10:00 PM LABOR RELATIONS TEACHER [facility] Blood BLOOD SPECIMEN / Unknown 11/01/2013 9:35 PM LABOR RELATIONS TEACHER 11/01/2013 9:38 PM LABOR RELATIONS TEACHER Jose Messer PA-C LAB - CHEMISTRY LAKISHA CRAIG Performing Organization Address [facility] [[email or web address] Co de Phone Number [facility] [address] [place] [address] * (ABNORMAL) TROPONIN I (11/01/2013 9:35 PM LABOR RELATIONS TEACHER) [facility] Troponin I 0.055(HH) 0.000 - 0.049 ng/mL 11/02/2013 12:07 AM LABOR RELATIONS TEACHER [facility] Blood BLOOD SPECIMEN / Unknown 11/01/2013 9:35 PM LABOR RELATIONS TEACHER 11/01/2013 9:38 PM LABOR RELATIONS TEACHER Narrative [facility] - 11/02/2013 12:07 AM LABOR RELATIONS TEACHER Note: Diagnosis of myocardial infarction requires symptoms of ischemia or EKG changes of ischemia and TNI >99th of normal (0.05 ng/mL). Troponin should be drawn on initial assessment and 3-6 hours later as clinically indicated. Any condition resulting in myocardial cell damage can increase cardiac troponin levels. In addition to myocardial infarction, these include but are not limited to CHF, arrhythmia, myocarditis, and non-cardiac related causes such as pulmonary embolism, renal failure and sepsis. Sushil Wilson MD LAB - CHEMISTRY LAKISHA CRAIG Performing Organization Address [facility] [[email or web address] Co de Phone Number [facility] [address] [place] [address] * (ABNORMAL) GLUCOSE - POINT OF CARE (11/01/2013 8:44 PM LABOR RELATIONS TEACHER) [facility] Glucose WB/POC 307(H) 70 - 106 mg/dL 11/01/2013 11:05 PM LABOR RELATIONS TEACHER [facility] Blood BLOOD SPECIMEN / Unknown 11/01/2013 8:44 PM LABOR RELATIONS TEACHER 11/01/2013 11:05 PM LABOR RELATIONS TEACHER Bk Lemus MD LAB - POINT OF CARE ORDERABLES [facility] [address] [place] [address] * (ABNORMAL) BLOOD GASES ART (ISTAT) (11/01/2013 5:52 PM LABOR RELATIONS TEACHER) pH Arterial POCT 7.18(LL) 7.35 - 7.45 pH 11/01/2013 5:59 PM LABOR RELATIONS TEACHER [facility] pCO2 Arterial 126.8(H) 32 - 43 mmHg 11/01/2013 5:59 PM [facility] pO2 Arterial 58(L) 72 - 104 mmHg 11/01/2013 5:59 PM [facility] HCO3 Arterial POCT 46.7(H) 22 - 26 mmol/L 11/01/2013 5:59 PM [facility] BE Arterial 11(H) -2 - 2 mmol/L 11/01/2013 5:59 PM [facility] TCO2 Arterial Calc POCT >50(H) 22 - 29 mmol/L 11/01/2013 5:59 PM [facility] O2 Saturation Arterial 78(LL) 90 - 100 % 11/01/2013 5:59 PM [facility] Respiratory Rate 20 11/01/19 14 5:59 PM [facility] Site R Radial 11/01/2013 5:59 PM [facility] Edy's Test POS/PASS 11/01/2013 5:59 PM [facility] Treatment Delivery Method BiPAP 11/01/2013 5:59 PM [facility] FI O2 45 % 11/01/2013 5:59 PM [facility] Sample iSTAT ARTERI 11/01/2013 5:59 PM [facility] PT iSTAT [id number] 11/01/2013 5:59 PM [facility] EPAP 6 11/01/2013 5:59 PM LABOR RELATIONS TEACHER [facility] IPAP 18 11/01/2013 5:59 PM [facility] Device 11/01/2013 5:59 PM [facility] Chief Medical Officer ID [id number] 11/01/2013 5:59 PM [facility] Blood ARTERIAL BLOOD SPECIMEN / Unknown 11/01/2013 5:52 PM LABOR RELATIONS TEACHER 11/01/2013 5:59 PM LABOR RELATIONS TEACHER Sushil Wilson MD LAB - POINT OF CARE ORDERABLES [facility] [address] [place] [address] * (ABNORMAL) BLOOD GASES ART (ISTAT) (11/01/2013 3:58 PM LABOR RELATIONS TEACHER) pH Arterial POCT 7.30(L) 7.35 - 7.45 pH 11/01/2013 4:13 PM LABOR RELATIONS TEACHER [facility] pCO2 Arterial 94.6(H) 32 - 43 mmHg 11/01/2013 4:13 PM [facility] pO2 Arterial 124(H) 72 - 104 mmHg 11/01/2013 4:13 PM [facility] HCO3 Arterial POCT 46.3(H) 22 - 26 mmol/L 11/01/2013 4:13 PM [facility] BE Arterial 14(H) -2 - 2 mmol/L 11/01/2013 4:13 PM [facility] TCO2 Arterial Calc POCT 49(H) 22 - 29 mmol/L 11/01/2013 4:13 PM [facility] O2 Saturation Arterial 98 90 - 100 % 11/01/2013 4:13 PM [facility] Respiratory Rate 20 11/01/19 14 4:13 PM [facility] Site R Radial 11/01/2013 4:13 PM [facility] Edy's Test NA 11/01/2013 4:13 PM [facility] Treatment Delivery Method BiPAP 11/01/2013 4:13 PM [facility] FI O2 45 % 11/01/2013 4:13 PM [facility] Sample iSTAT ARTERI 11/01/2013 4:13 PM [facility] PT iSTAT [id number] 11/01/2013 4:13 PM [facility] EPAP 6 11/01/2013 4:13 PM [facility] IPAP 16 11/01/2013 4:13 PM [facility] Device 11/01/2013 4:13 PM [facility] Chief Medical Officer ID [id number] 11/01/2013 4:13 PM [facility] Blood ARTERIAL BLOOD SPECIMEN / Unknown 11/01/2013 3:58 PM LABOR RELATIONS TEACHER 11/01/2013 4:13 PM LABOR RELATIONS TEACHER Sushil Wilson MD LAB - POINT OF CARE ORDERABLES Performing Organization Address [facility] [[email or web address]] Co de Phone Number [facility] [address] [place] [address] * XR CHEST 1VW PORTABLE (11/01/2013 3:20 PM LABOR RELATIONS TEACHER) Anatomical Region Laterality Modality Chest Radiographic Tracey ging 11/01/2013 3:57 PM LABOR RELATIONS TEACHER Narrative 11/01/2013 3:57 PM LABOR RELATIONS TEACHER Portable AP chest Clinical indication: Shortness of breath Comparison: None available Findings: There is cardiomegaly with mid and lower lung zone interstitial edema. There are small bilateral pleural effusions. There is no pneumothorax. Procedure Note Suleman Ag MD - 11/01/2013 Portable AP chest Clinical indication: Shortness of breath Comparison: None available Findings: There is cardiomegaly with mid and lower lung zone interstitial edema. There are small bilateral pleural effusions. There is no pneumothorax. Sushil Wilson MD DIAGNOSTIC IMAGING O RDERABLES * BLOOD GASES ARTERIAL POCT (11/01/2013 3:04 PM LABOR RELATIONS TEACHER) Comment Notification Only - See Separate Report 11/01/2013 5:00 PM LABOR RELATIONS TEACHER [facility] Blood BLOOD SPECIMEN / Unknown 11/01/2013 3:04 PM LABOR RELATIONS TEACHER 11/01/2013 3:04 PM LABOR RELATIONS TEACHER Sushil Wilson MD LAB - BLOOD GASES OR DERABLES Performing Organization Address [facility] [[email or web address] Co de Phone Number [facility] [address] [place] [address] * (ABNORMAL) B-TYPE NATRIURETIC PEPTIDE (11/01/2013 2:59 PM LABOR RELATIONS TEACHER) BNP 199(H) 0 - 100 pg/mL 11/01/2013 3:44 PM LABOR RELATIONS TEACHER [facility] Blood BLOOD SPECIMEN WITH EDTA / Unknown 11/01/2013 2:59 PM LABOR RELATIONS TEACHER 11/01/2013 3:06 PM LABOR RELATIONS TEACHER Sushil Wilson MD LAB - CHEMISTRY LAKISHA CRAIG Performing Organization Address [facility] de Phone Number [facility] [address] [place] [address] * (ABNORMAL) TROPONIN I (11/01/2013 2:58 PM LABOR RELATIONS TEACHER) Troponin I 0.084(HH) 0.000 - 0.049 ng/mL 11/01/2013 3:30 PM LABOR RELATIONS TEACHER [facility] Blood BLOOD SPECIMEN / Unknown 11/01/2013 2:58 PM LABOR RELATIONS TEACHER 11/01/2013 3:06 PM LABOR RELATIONS TEACHER Narrative [facility] - 11/01/2013 3:30 PM LABOR RELATIONS TEACHER Note: Diagnosis of myocardial infarction requires symptoms of ischemia or EKG changes of ischemia and TNI >99th of normal (0.05 ng/mL). Troponin should be drawn on initial assessment and 3-6 hours later as clinically indicated. Any condition resulting in myocardial cell damage can increase cardiac troponin levels. In addition to myocardial infarction, these include but are not limited to CHF, arrhythmia, myocarditis, and non-cardiac related causes such as pulmonary embolism, renal failure and sepsis. Sushil Wilson MD LAB - CHEMISTRY LAKISHA CRAIG Performing Organization Address [facility] de Phone Number [facility] [address] [place] [address] * (ABNORMAL) COMPREHENSIVE METABOLIC PANEL (11/01/2013 2:58 PM LABOR RELATIONS TEACHER) Glucose 415(H) 74 - 106 mg/dL 11/01/2013 3:26 PM [facility] Sodium 138 136 - 145 mmol/L 11/01/2013 3:26 PM [facility] Potassium 4.7 3.5 - 5.1 mmol/L 11/01/2013 3:26 PM [facility] Chloride 95(L) 98 - 107 mmol/L 11/01/2013 3:26 PM [facility] CO2 39(H) 22 - 31 mmol/L 11/01/2013 3:26 PM [facility] Calcium 8.7 8.5 - 10.1 mg/dL 11/01/2013 3:26 PM [facility] Anion Gap 4(L) 5 - 15 mmol/L 11/01/2013 3:26 PM [facility] BUN 35(H) 7 - 21 mg/dL 11/01/2013 3:26 PM [facility] Creatinine 1.09 0.50 - 1.30 mg/dL 11/01/2013 3:26 PM [facility] eGFR by MDRD >60 >60 mL/min/1.7 3m2 11/01/2013 3:26 PM [facility] eGFR by MDRD >60 >60 mL/min/1.7 3m2 11/01/2013 3:26 PM [facility] Alkaline Phosphatase 130(H) 38 - 126 U/L 11/01/2013 3:26 PM [facility] ALT 58 12 - 78 U/L 11/01/2013 3:26 PM [facility] AST 42(H) 5 - 40 U/L 11/01/2013 3:26 PM [facility] Protein Total 6.5 6.4 - 8.2 gm/dL 11/01/2013 3:26 PM [facility] Albumin 3.1(L) 3.4 - 5.0 gm/dL 11/01/2013 3:26 PM [facility] Bilirubin Total 0.6 0.2 - 1.0 mg/dL 11/01/2013 3:26 PM [facility] Blood BLOOD SPECIMEN / Unknown 11/01/2013 2:58 PM LABOR RELATIONS TEACHER 11/01/2013 3:06 PM LABOR RELATIONS TEACHER Sushil Wilson MD LAB - CHEMISTRY LAKISHA CRAIG [facility] Organization Address City/State/ZIP Co de Phone Number [facility] [address] [place] [address] * (ABNORMAL) CBC W AUTO DIFFERENTIAL (11/01/2013 2:58 PM LABOR RELATIONS TEACHER) WBC 12.5(H) 4.4 - 10.7 x10^9/L 11/01/2013 3:13 PM [facility] RBC 4.84 3.80 - 5.40 x10^12/L 11/01/2013 3:13 PM [facility] Hemoglobin 14.7 12.0 - 17.6 gm/dL 11/01/2013 3:13 PM [facility] Hematocrit 48.5 35.2 - 51.7 % 11/01/2013 3:13 PM [facility] MCV 100.2(H) 80.7 - 98.3 fl 11/01/2013 3:13 PM [facility] MCH 30.4 26.7 - 34.0 pg 11/01/2013 3:13 PM [facility] MCHC 30.3(L) 30.8 - 35.9 gm/dL 11/01/2013 3:13 PM [facility] Platelet Count 270 153 - 416 x10^9/L 11/01/2013 3:13 PM [facility] RDW-CV 16.3(H) 12.1 - 14.9 % 11/01/2013 3:13 PM [facility] MPV 10.5 9.4 - 12.9 fl 11/01/2013 3:13 PM [facility] Neutrophils % 72.2 44.0 - 73.0 % 11/01/2013 3:13 PM [facility] Lymphocytes % 14.4(L) 20.0 - 43.0 % 11/01/2013 3:13 PM [facility] Monocytes % 12.0 5.0 - 13.0 % 11/01/2013 3:13 PM [facility] Eosinophils % 0.5 0.0 - 6.0 % 11/01/2013 3:13 PM [facility] Basophils % 0.1 0.0 - 2.0 % 11/01/2013 3:13 PM [facility] Immature Granulocytes 0.8 0 - 1 % 11/01/2013 3:13 PM [facility] Neutrophil Absolute 9.07(H) 2.01 - 7.14 x10^9/L 11/01/2013 3:13 PM [facility] Lymphocytes Absolute 1.80 1.07 - 3.94 x10^9/L 11/01/2013 3:13 PM [facility] Monocytes Absolute 1.50(H) 0.26 - 1.07 x10^9/L 11/01/2013 3:13 PM [facility] Eosinophils Absolute 0.06 0 - 0.47 x10^9/L 11/01/2013 3:13 PM [facility] Basophils Absolute 0.01 0 - 0.08 x10^9/L 11/01/2013 3:13 PM [facility] Immature Granulocytes Absolute 0.10(H) 0.00 - 0.06 x10^9/L 11/01/2013 3:13 PM [facility] Blood BLOOD SPECIMEN / Unknown 11/01/2013 2:58 PM LABOR RELATIONS TEACHER 11/01/2013 3:06 PM LABOR RELATIONS TEACHER Sushil Wilson MD LAB - HEMATOLOGY ORD ERABLES [facility] [address] [place] [address] * (ABNORMAL) BLOOD GASES ART (ISTAT) (11/01/2013 2:58 PM LABOR RELATIONS TEACHER) pH Arterial POCT 7.26(L) 7.35 - 7.45 pH 11/01/2013 3:03 PM [facility] pCO2 Arterial 95.2(H) 32 - 43 mmHg 11/01/2013 3:03 PM [facility] pO2 Arterial 70(L) 72 - 104 mmHg 11/01/2013 3:03 PM [facility] HCO3 Arterial POCT 42.4(H) 22 - 26 mmol/L 11/01/2013 3:03 PM [facility] BE Arterial 10(H) -2 - 2 mmol/L 11/01/2013 3:03 PM [facility] TCO2 Arterial Calc POCT 45(H) 22 - 29 mmol/L 11/01/2013 3:03 PM [facility] O2 Saturation Arterial 89(L) 90 - 100 % 11/01/2013 3:03 PM [facility] Site R Radial 11/01/2013 3:03 PM [facility] Edy's Test NA 11/01/2013 3:03 PM [facility] Treatment Delivery Method Nasal Can 11/01/2013 3:03 PM [facility] Sample iSTAT ARTERI 11/01/2013 3:03 PM [facility] PT iSTAT [id number] 11/01/2013 3:03 PM [facility] LPM iSTAT 4 11/01/2013 3:03 PM [facility] Device 11/01/2013 3:03 PM [facility] Chief Medical Officer ID [id number] 11/01/2013 3:03 PM [facility] Blood ARTERIAL BLOOD SPECIMEN / Unknown 11/01/2013 2:58 PM LABOR RELATIONS TEACHER 11/01/2013 3:03 PM LABOR RELATIONS TEACHER Sushil Wilson MD LAB - POINT OF CARE ORDERABLES Performing Organization Address [facility] [[email or web address]] Co de Phone Number [facility] [address] [place] [address] * EKG 12-LEAD (11/01/2013 2:28 PM LABOR RELATIONS TEACHER) Ventricular Rate 130 BPM [facility] Atrial Rate 130 BPM [facility] P-R Interval 124 ms [facility] QRS Duration ms 132 ms [facility] Q-T Interval ms 302 ms [facility] QTC Calculation (Bezet) 444 ms [facility] Calculated P [place] 36 degrees [facility] Calculated R [place] -75 degrees [facility] Calculated T [place] 21 degrees [facility] Interpretation EKG Sinus tachycardia Right bundle branch block Left anterior fascicular block Bifascicular block Possible Lateral infarct , age undetermined Inferior infarct , age undetermined Abnormal ECG No previous ECGs available Confirmed by MD DIOMEDES, JESUS MANUEL ([id number]) on 11/02/2013 1:56:35 PM [facility] 11/01/2013 2:28 PM LABOR RELATIONS TEACHER 11/02/2013 1:56 PM LABOR RELATIONS TEACHER Narrative [facility] - 11/02/2013 1:56 PM LABOR RELATIONS TEACHER Procedure Note Document, Scanned - 11/02/2013 11:31 AM CST Transcriptions Document, Scanned - 11/02/2013 11:54 AM CST Document, Scanned - 11/02/2013 1:58 PM CST Bk Lemus MD ECG ORDERABLES Performing Organization Address City/[facility]/ZIP Co de Phone Number [facility] MUSE documented in this encounter Visit Diagnoses Diagnosis SOB (shortness of breath)- Primary Shortness of breath Respiratory distress Other dyspnea and respiratory abnormality Hypoxia Hypoxemia COPD (chronic obstructive pulmonary disease) (HCC) Chronic airway obstruction, not elsewhere classified Chronic respiratory failure (HCC) Chronic respiratory failure RIKKI (obstructive sleep apnea) Obstructive sleep apnea (adult) (pediatric) Atelectasis Pulmonary collapse Acute respiratory failure (HCC) Acute respiratory failure Chronic respiratory failure (HCC) Chronic respiratory failure RIKKI (obstructive sleep apnea) Obstructive sleep apnea (adult) (pediatric) documented in this encounter Administered Medications Inactive Administered Medications - up to 3 most recent administrations Medication Order MAR Action Action Date Dose Rate Site 0.9% NaCl infusion at 10 mL/hr, Intravenous, CONTINUOUS, Starting on 11/08/13 at 1545, Until Sun11/14/13 at 1548 Current Rate 11/12/2013 4:11 AM LABOR RELATIONS TEACHER 10 mL/hr Rate Change 11/11/2013 7:52 PM LABOR RELATIONS TEACHER 10 mL/hr $ New Bag/Syringe 11/11/2013 5:34 PM LABOR RELATIONS TEACHER 100 mL /hr 0.9% NaCl injection 2-10 mL 2-10 mL, Intracatheter, PRN, Other, PIV flush, Starting on 11/01/13 at 1448, Until Sun11/14/13 at 1548, PIV flush Use positive pressure technique for last 0.5 ml. 2 ml for saline lock flush. 10 ml for syringe flush. $ Given 11/09/2013 3:48 AM LABOR RELATIONS TEACHER 10 mL $ Given 11/03/2013 2:12 AM LABOR RELATIONS TEACHER 3 mL 0.9% NaCl injection 3 mL 3 mL, Intracatheter, EVERY 8 HOURS, First dose on 11/01/13 at 2200, Until Discontinued $ Given 11/14/2013 5:52 AM LABOR RELATIONS TEACHER 3 mL $ Given 11/13/2013 8:48 PM LABOR RELATIONS TEACHER 3 mL $ Given 11/13/2013 2:51 PM LABOR RELATIONS TEACHER 3 mL 0.9% NaCl IV Bolus 500 mL, Administer over 60 Minutes, ONCE, 1 dose, On 11/08/13 at 1215 $ Given 11/08/2013 11:57 AM LABOR RELATIONS TEACHER 500 mL acetaminophen (TYLENOL) tablet 650 mg 650 mg, Oral, EVERY 6 HOURS PRN, Pain, Starting on Sun11/05/13 at 1702, Until Sun11/14/13 at 1548, Maximum allowable Acetaminophen amount = 4 Grams (4000 mg) / 24 hours. $ Given 11/14/2013 11:35 AM LABOR RELATIONS TEACHER 650 mg $ Given 11/07/2013 10:01 PM LABOR RELATIONS TEACHER 650 mg $ Given 11/06/2013 1:44 PM LABOR RELATIONS TEACHER 650 mg albuterol (PROVENTIL;VENTOLIN) (5 MG/ML) 0.5% nebulizer solution 2.5 mg 2.5 mg, Inhalation, ONCE, 1 dose, On 11/01/13 at 1515, Dilute prior to administration via nebulization. $ Given 11/01/2013 3:40 PM LABOR RELATIONS TEACHER 2.5 mg albuterol (PROVENTIL;VENTOLIN) (5 MG/ML) 0.5% nebulizer solution 2.5 mg 2.5 mg, Inhalation, PRN, Shortness of Breath, Wheezing, Starting on 11/01/13 at 2134, Until Sun11/14/13 at 1548, Dilute prior to administration via nebulization. $ Given 11/11/2013 2:01 AM LABOR RELATIONS TEACHER 2.5 mg albuterol (PROVENTIL;VENTOLIN) (5 MG/ML) 0.5% nebulizer solution 2.5 mg 2.5 mg, Inhalation, 4 TIMES DAILY, First dose (after last modification) on Sun11/02/13 at 0200, Until Discontinued, Dilute prior to administration via nebulization. $ Given 11/14/2013 2:36 PM LABOR RELATIONS TEACHER 2.5 mg $ Given 11/14/2013 7:43 AM LABOR RELATIONS TEACHER 2.5 mg $ Given 11/14/2013 2:11 AM LABOR RELATIONS TEACHER 2.5 mg ALPRAZolam (XANAX) tablet 0.5 mg 0.5 mg, Oral, 3 TIMES DAILY PRN, Anxiety, Starting on Sun11/03/13 at 0737, Until 11/08/13 at 1503 $ Given 11/07/2013 12:19 PM [employer] 0.5 mg $ Given 11/06/2013 10:17 AM [employer] 0.5 mg $ Given 11/05/2013 9:05 PM [employer] 0.5 mg amLODIPine (NORVASC) tablet 10 mg 10 mg, Oral, DAILY, First dose on Sun11/05/13 at 1745, Until Discontinued $ Given 11/07/2013 11:14 AM [employer] 10 mg $ Given 11/05/2013 6:11 PM [employer] 10 mg amLODIPine (NORVASC) tablet 10 mg 10 mg, Per NG/OG Tube, DAILY, First dose on Sun11/09/13 at 1130, Until Discontinued $ Given 11/14/2013 9:21 AM [employer] 10 m g $ Given 11/13/2013 8:47 AM [employer] 10 mg $ Given 11/12/2013 8:08 AM [employer] 10 mg amoxicillin-clavulanate (AUGMENTIN) tablet 875 mg 875 mg, Oral, 2 TIMES DAILY WITH MEALS, First dose on Sun11/14/13 at 1130, Until Discontinued, Administer with food to decrease GI side effects. $ Given 11/14/2013 12:08 PM [employer] 875 mg ARIPiprazole (ABILIFY) tablet 40 mg 40 mg, Oral, DAILY, First dose on Sun11/05/13 at 1830, Until Discontinued $ Given 11/07/2013 11:12 AM [employer] 40 mg $ Given 11/06/2013 10:17 AM [employer] 40 mg $ Given 11/05/2013 8:19 PM [employer] 40 mg aspirin tablet 325 mg 325 mg, Oral, DAILY, First dose on Sun11/01/13 at 2045, Until Discontinued $ Given 11/07/2013 11:12 AM [employer] 325 mg $ Given 11/06/2013 10:17 AM LABOR RELATIONS TEACHER 325 mg $ Given 11/05/2013 8:34 AM LABOR RELATIONS TEACHER 325 mg aspirin tablet 325 mg 325 mg, Per NG/OG Tube, DAILY, First dose (after last modification) on Sun11/09/13 at 0900, Until Discontinued $ Given 11/14/2013 9:21 AM LABOR RELATIONS TEACHER 325 mg $ Given 11/13/2013 8:47 AM LABOR RELATIONS TEACHER 325 mg $ Given 11/12/2013 8:08 AM LABOR RELATIONS TEACHER 325 mg budesonide-formoterol (SYMBICORT) 160-4.5 MCG/ACT inhaler 2 Puff 2 puff, Inhalation, 2 TIMES DAILY, First dose on Sun11/03/13 at 2100, Until Discontinued, Rinse mouth after usage . WASTE DISPOSAL INSTRUCTION: Send to Pharmacy for Disposal. . $ Given 11/14/2013 7:52 AM LABOR RELATIONS TEACHER 2 puffs $ Given 11/13/2013 8:19 PM LABOR RELATIONS TEACHER 2 puffs $ Given 11/13/2013 8:10 AM LABOR RELATIONS TEACHER 2 puffs carvedilol (COREG) tablet 25 mg 25 mg, Oral, 2 TIMES DAILY WITH MEALS, First dose on Sun11/03/13 at 1315, Until Discontinued, Take with food $ Given 11/07/2013 8:00 PM LABOR RELATIONS TEACHER 25 mg $ Given 11/07/2013 11:13 AM LABOR RELATIONS TEACHER 25 mg $ Given 11/06/2013 5:43 PM LABOR RELATIONS TEACHER 25 mg dexmedetomidine (PRECEDEX) 400 mcg in NaCl 0.9 % infusion 0-1.5 mcg/kg/hr ? 96.3 kg (rounded to 0-36.11 mL/hr), Intravenous, CONTINUOUS, Starting on Sun11/02/13 at 0330, Until Sun11/02/13 at 2030, Titrate per MD orders Rate Change 11/02/2013 3:39 PM LABOR RELATIONS TEACHER 0.2 mcg/kg/hr 4.82 mL/hr Rate Change 11/02/2013 2:22 PM LABOR RELATIONS TEACHER 0.3 mcg/kg/hr 7.22 mL/h r $ New Bag/Syringe 11/02/2013 12:09 PM LABOR RELATIONS TEACHER 0.4 mcg/kg/hr 9. 63 mL/hr enoxaparin (LOVENOX) injection 40 mg 40 mg, Subcutaneous, DAILY AT 0600, First dose on Sun11/02/13 at 0600, Until Discontinued $ Given 11/07/2013 5:41 AM LABOR RELATIONS TEACHER 40 mg Abdominal Tissue $ Given 11/06/2013 5:47 AM LABOR RELATIONS TEACHER 40 mg Ab dominal Tissue $ Given 11/05/2013 5:56 AM LABOR RELATIONS TEACHER 40 mg Ab d Left Lower Quadrant enoxaparin (LOVENOX) injection 40 mg 40 mg, Subcutaneous, EVERY 12 HOURS (06 AND 18), First dose on Sun11/07/13 at 1800, Until Discontinued, Dosage adjusted by pharmacy according to [facility] [employer] Renal Dose Adjustment Policy. $ Given 11/14/2013 5:51 AM LABOR RELATIONS TEACHER 40 mg Abdominal Tissue $ Given 11/13/2013 6:00 PM LABOR RELATIONS TEACHER 40 mg Ab dominal Tissue $ Given 11/13/2013 5:48 AM LABOR RELATIONS TEACHER 40 mg Ab dominal Tissue etomidate (AMIDATE) injection 20 mg 20 mg, Intravenous, ONCE, 1 dose, On 11/08/13 at 1215 $ Given 11/08/2013 11:05 AM LABOR RELATIONS TEACHER 20 mg famotidine (PEPCID) injection 20 mg 20 mg, Intravenous, 2 TIMES DAILY, First dose on 11/01/13 at 2115, Until Discontinued $ Given 11/03/2013 7:44 AM LABOR RELATIONS TEACHER 20 mg $ Given 11/02/2013 9:37 PM LABOR RELATIONS TEACHER 20 mg $ Given 11/02/2013 8:29 AM LABOR RELATIONS TEACHER 20 mg famotidine (PEPCID) injection 20 mg 20 mg, Intravenous, 2 TIMES DAILY, First dose on 11/08/13 at 2100, Until Discontinued $ Given 11/10/2013 8:46 AM LABOR RELATIONS TEACHER 20 mg $ Given 11/09/2013 8:52 PM LABOR RELATIONS TEACHER 20 mg $ Given 11/09/2013 8:46 AM LABOR RELATIONS TEACHER 20 mg famotidine (PEPCID) tablet 20 mg 20 mg, Oral, 2 TIMES DAILY, First dose on Sun11/03/13 at 2100, Until Discontinued $ Given 11/07/2013 9:59 PM LABOR RELATIONS TEACHER 20 mg $ Given 11/07/2013 11:14 AM LABOR RELATIONS TEACHER 20 mg $ Given 11/06/2013 9:16 PM LABOR RELATIONS TEACHER 20 mg famotidine (PEPCID) tablet 20 mg 20 mg, Per G Tube, 2 TIMES DAILY, First dose on Sun11/10/13 at 2100, Until Discontinued $ Given 11/14/2013 9:21 AM CS T 20 mg $ Given 11/13/2013 8:48 PM LABOR RELATIONS TEACHER 20 mg $ Given 11/13/2013 8:47 AM LABOR RELATIONS TEACHER 20 mg fentaNYL (SUBLIMAZE) injection 50 mcg 50 mcg, Intravenous, ONCE, 1 dose, On 11/08/13 at 1230 $ Given 11/08/2013 12:08 PM LABOR RELATIONS TEACHER 50 mcg fentaNYL (SUBLIMAZE) injection 50 mcg 50 mcg, Intravenous, ONCE, 1 dose, On 11/08/13 at 1345 $ Given 11/08/2013 1:25 PM LABOR RELATIONS TEACHER 50 mcg furosemide (LASIX) injection 20 mg 20 mg, Intravenous, ONCE, 1 dose, On 11/01/13 at 2115 $ Given 11/01/2013 9:13 PM LABOR RELATIONS TEACHER 20 mg furosemide (LASIX) injection 20 mg 20 mg, Intravenous, ONCE, 1 dose, On Sun11/02/13 at 0500 $ Given 11/02/2013 4:46 AM LABOR RELATIONS TEACHER 20 mg furosemide (LASIX) injection 20 mg 20 mg, Intravenous, ONCE, 1 dose, On Sun11/02/13 at 1215 $ Given 11/02/2013 12:00 PM LABOR RELATIONS TEACHER 20 mg furosemide (LASIX) injection 20 mg 20 mg, Intravenous, ONCE, 1 dose, On Sun11/07/13 at 1100 $ Given 11/07/2013 11:26 AM LABOR RELATIONS TEACHER 20 mg furosemide (LASIX) injection 40 mg 40 mg, Intravenous, DAILY, First dose on Sun11/11/13 at 1730, Until Discontinued $ Given 11/14/2013 9:21 AM LABOR RELATIONS TEACHER 40 m g $ Given 11/13/2013 8:50 AM LABOR RELATIONS TEACHER 40 mg $ Given 11/12/2013 8:08 AM LABOR RELATIONS TEACHER 40 mg furosemide (LASIX) tablet 20 mg 20 mg, Oral, ONCE, 1 dose, On Sun11/04/13 at 1100 $ Given 11/04/2013 11:01 AM LABOR RELATIONS TEACHER 20 mg glipiZIDE (GLUCOTROL) tablet 10 mg 10 mg, Oral, DAILY BEFORE BREAKFAST, First dose on Sun11/05/13 at 1745, Until Discontinued, Give 30 minutes before meals; if dose is greater than 15mg per day, give in divided dose $ Given 11/07/2013 11:14 AM LABOR RELATIONS TEACHER 10 mg $ Given 11/06/2013 10:18 AM LABOR RELATIONS TEACHER 10 mg glipiZIDE (GLUCOTROL) tablet 5 mg 5 mg, Oral, DAILY BEFORE BREAKFAST, First dose (after last reorder) on Sun11/13/13 at 1930, Until Discontinued, Give 30 minutes before meals; if dose is greater than 15mg per day, give in divided dose $ Given 11/14/2013 7:19 AM LABOR RELATIONS TEACHER 5 mg guaifenesin ER 12hr (MUCINEX) tablet 1,200 mg 1,200 mg, Oral, EVERY 12 HOURS, First dose on Sun11/03/13 at 2100, Until Discontinued, Do not crush, chew, or cut in half. $ Given 11/07/2013 9:59 PM LABOR RELATIONS TEACHER 1,200 mg $ Given 11/07/2013 11:13 AM LABOR RELATIONS TEACHER 1,200 mg $ Given 11/06/2013 9:16 PM LABOR RELATIONS TEACHER 1,200 mg guaifenesin ER 12hr (MUCINEX) tablet 1,200 mg 1,200 mg, Oral, EVERY 12 HOURS, First dose on Sun11/13/13 at 1100, Until Discontinued, Do not crush, chew, or cut in half. $ Given 11/14/2013 9:21 AM LABOR RELATIONS TEACHER 1,200 mg $ Given 11/13/2013 8:48 PM LABOR RELATIONS TEACHER 1,200 mg $ Given 11/13/2013 10:55 AM LABOR RELATIONS TEACHER 1,200 mg hydrALAZINE (APRESOLINE) injection 10 mg 10 mg, Intravenous, EVERY 4 HOURS PRN, systolic > 170 mm hg,, Starting on 11/08/13 at 1956, Until Sun11/14/13 at 1548 $ Given 11/10/2013 8:23 PM CS T 10 mg $ Given 11/09/2013 10:03 AM LABOR RELATIONS TEACHER 10 mg $ Given 11/09/2013 5:22 AM LABOR RELATIONS TEACHER 10 mg hydrALAZINE (APRESOLINE) injection 10 mg 10 mg, Intravenous, EVERY 4 HOURS PRN, for SBP above 150, Starting on Sun11/09/13 at 1126, Until Sun11/14/13 at 1548 $ Given 11/14/2013 12:15 AM LABOR RELATIONS TEACHER 10 mg $ Given 11/09/2013 5:35 PM LABOR RELATIONS TEACHER 10 mg hydrALAZINE (APRESOLINE) tablet 37.5 mg 37.5 mg, Oral, 3 TIMES DAILY, First dose on Sun11/05/13 at 2100, Until Discontinued $ Given 11/07/2013 10:00 P M LABOR RELATIONS TEACHER 37.5 mg $ Given 11/07/2013 11:14 AM LABOR RELATIONS TEACHER 37.5 mg $ Given 11/06/2013 8:57 PM LABOR RELATIONS TEACHER 37.5 mg insulin glargine (LANTUS) injection 25 Units 25 Units, Subcutaneous, AT BEDTIME, First dose on Sun11/02/13 at 2100, Until Discontinued, Obtain a current Blood Glucose if necessary. . WASTE DISPOSAL INSTRUCTIONS: Black Bin Disposal required. $ Given 11/07/2013 10:05 PM LABOR RELATIONS TEACHER 25 Units Right Arm $ Given 11/06/2013 10:24 PM LABOR RELATIONS TEACHER 25 Units R ight Arm $ Given 11/05/2013 8:22 PM LABOR RELATIONS TEACHER 25 Units Le ft Arm insulin lispro (humaLOG) injection 2-12 Units 2-12 Units, Subcutaneous, 3 TIMES DAILY BEFORE MEALS, First dose on Sun11/02/13 at 0645, Until Discontinued, SLIDING SCALE # 1 May be given immediately before meal, during meal, or immediately after meal is eaten. Meal must be present before administration. DO NOT GIVE BEDTIME DOSING. 70 or LESS, follow Hypoglycemic guidelines, 71-140 No Insulin given, 141-180 GIVE 2 units of Insulin, 181-220 GIVE 4 units of Insulin, 221-260 GIVE 6 units of Insulin, 261-300 GIVE 8 units of Insulin, 301-350 GIVE 10 units of Insulin, >350 Give 12 units of Insulin---Call physician ..If after 24 hours on sliding scale 1, the patient's blood sugar is greater than 180 two or more times in 24 hours, discontinue sliding scale 1 and advance to sliding scale 2. May send Rx message to pharmacy to advance to sliding scale 2. Call physician if feeding method changes. Obtain current Blood Glucose if necessary. May be given immediately before meal, during meal, or immediately after meal is eaten. Meal must be present before administration. $ Given 11/04/2013 8:16 AM LABOR RELATIONS TEACHER 6 Units Right Arm $ Given 11/03/2013 7:30 PM LABOR RELATIONS TEACHER 2 Units Le ft Arm $ Given 11/03/2013 11:57 AM LABOR RELATIONS TEACHER 10 Units L eft Arm insulin lispro (humaLOG) injection 3-18 Units 3-18 Units, Subcutaneous, EVERY 4 HOURS, First dose (after last modification) on Sun11/02/13 at 0000, Until Discontinued, SLIDING SCALE # 2 May be given immediately before meal, during meal, or immediately after meal is eaten. Meal must be present before administration. DO NOT GIVE BEDTIME DOSING 70 or LESS, follow Hypoglycemic guidelines, 71-140 No Insulin given, 141-180 GIVE 3 units of Insulin, 181-220 GIVE 6 units of Insulin, 221-260 GIVE 9 units of Insulin, 261-300 GIVE 12 units of Insulin, 301-350 GIVE 15 units of Insulin, >350 Give 18 units of Insulin---Call physician Call physician if feeding method changes. Obtain current Blood Glucose if necessary. May be given immediately before meal, during meal, or immediately after meal is eaten. Meal must be present before administration. $ Given 11/01/2013 11:19 PM LABOR RELATIONS TEACHER 18 Units Left Arm insulin lispro (humaLOG) injection 3-18 Units 3-18 Units, Subcutaneous, 3 TIMES DAILY BEFORE MEALS, First dose (after last modification) on Sun11/04/13 at 1030, Until Discontinued, SLIDING SCALE # 2 May be given immediately before meal, during meal, or immediately after meal is eaten. Meal must be present before administration. DO NOT GIVE BEDTIME DOSING 70 or LESS, follow Hypoglycemic guidelines, 71-140 No Insulin given, 141-180 GIVE 3 units of Insulin, 181-220 GIVE 6 units of Insulin, 221-260 GIVE 9 units of Insulin, 261-300 GIVE 12 units of Insulin, 301-350 GIVE 15 units of Insulin, >350 Give 18 units of Insulin---Call physician Call physician if feeding method changes. Obtain current Blood Glucose if necessary. May be given immediately before meal, during meal, or immediately after meal is eaten. Meal must be present before administration. $ Given 11/06/2013 1:39 PM LABOR RELATIONS TEACHER 3 Units Right Arm $ Given 11/06/2013 6:26 AM LABOR RELATIONS TEACHER 3 Units Le ft Arm $ Given 11/05/2013 4:59 PM LABOR RELATIONS TEACHER 3 Units Ab dominal Tissue insulin lispro (humaLOG) injection 3-18 Units 3-18 Units, Subcutaneous, EVERY 6 HOURS, First dose (after last modification) on 11/09/13 at 0600, Until Discontinued, SLIDING SCALE # 2 May be given immediately before meal, during meal, or immediately after meal is eaten. Meal must be present before administration. DO NOT GIVE BEDTIME DOSING 70 or LESS, follow Hypoglycemic guidelines, 71-140 No Insulin given, 141-180 GIVE 3 units of Insulin, 181-220 GIVE 6 units of Insulin, 221-260 GIVE 9 units of Insulin, 261-300 GIVE 12 units of Insulin, 301-350 GIVE 15 units of Insulin, >350 Give 18 units of Insulin---Call physician Call physician if feeding method changes. Obtain current Blood Glucose if necessary. May be given immediately before meal, during meal, or immediately after meal is eaten. Meal must be present before administration. $ Given 11/13/2013 10:55 AM LABOR RELATIONS TEACHER 9 Units Abdominal Tissue $ Given 11/13/2013 5:57 AM LABOR RELATIONS TEACHER 9 Units Ab dominal Tissue $ Given 11/12/2013 11:59 PM LABOR RELATIONS TEACHER 9 Units R ight Arm insulin lispro (humaLOG) injection 3-18 Units 3-18 Units, Subcutaneous, 3 TIMES DAILY BEFORE MEALS, First dose (after last modification) on Leena 11/13/13 at 1630, Until Discontinued, SLIDING SCALE # 2 May be given immediately before meal, during meal, or immediately after meal is eaten. Meal must be present before administration. DO NOT GIVE BEDTIME DOSING 70 or LESS, follow Hypoglycemic guidelines, 71-140 No Insulin given, 141-180 GIVE 3 units of Insulin, 181-220 GIVE 6 units of Insulin, 221-260 GIVE 9 units of Insulin, 261-300 GIVE 12 units of Insulin, 301-350 GIVE 15 units of Insulin, >350 Give 18 units of Insulin---Call physician Call physician if feeding method changes. Obtain current Blood Glucose if necessary. May be given immediately before meal, during meal, or immediately after meal is eaten. Meal must be present before administration. $ Given 11/14/2013 7:17 AM LABOR RELATIONS TEACHER 9 Units Ri ght Arm $ Given 11/13/2013 6:00 PM LABOR RELATIONS TEACHER 6 Units Ab dominal Tissue ipratropium (ATROVENT) nebulizer solution 0.5 mg 0.5 mg, Inhalation, ONCE, 1 dose, On 11/01/13 at 1515 $ Given 11/01/2013 3:40 PM LABOR RELATIONS TEACHER 0.5 mg ipratropium (ATROVENT) nebulizer solution 0.5 mg 0.5 mg, Inhalation, 4 TIMES DAILY, First dose (after last modification) on Sun11/02/13 at 0200, Until Discontinued $ Given 11/14/2013 2:36 PM LABOR RELATIONS TEACHER 0.5 mg $ Given 11/14/2013 7:43 AM LABOR RELATIONS TEACHER 0.5 mg $ Given 11/14/2013 2:11 AM LABOR RELATIONS TEACHER 0.5 mg isosorbide dinitrate (ISORDIL) tablet 20 mg 20 mg, Oral, 3 TIMES DAILY, First dose on Sun11/05/13 at 2100, Until Discontinued $ Given 11/07/2013 10:01 PM LABOR RELATIONS TEACHER 20 m g $ Given 11/07/2013 11:12 AM LABOR RELATIONS TEACHER 20 mg $ Given 11/06/2013 9:16 PM LABOR RELATIONS TEACHER 20 mg labetalol (NORMODYNE; TRANDATE) injection 20 mg 20 mg, Intravenous, ONCE, 1 dose, On 11/01/13 at 1645, Max IV dose is 300mg/24 hours. $ Given 11/01/2013 4:32 PM LABOR RELATIONS TEACHER 20 mg labetalol (NORMODYNE; TRANDATE) injection 20 mg 20 mg, Intravenous, ONCE, 1 dose, On 11/01/13 at 2100, Max IV dose is 300mg/24 hours. $ Given 11/01/2013 8:46 PM LABOR RELATIONS TEACHER 20 mg labetalol (NORMODYNE; TRANDATE) injection 20 mg 20 mg, Intravenous, ONCE, 1 dose, On 11/01/13 at 2130, Max IV dose is 300mg/24 hours. $ Given 11/01/2013 9:13 PM LABOR RELATIONS TEACHER 20 mg labetalol (NORMODYNE;TRANDATE) injection ADS Med 1 dose, Starting on 11/01/13 at 1617, Until 11/01/13 at 1632, MONICA WEAVER N: rubi override levofloxacin (LEVAQUIN) IVPB 750 mg 750 mg, at 100 mL/hr, Intravenous, EVERY 24 HOURS, First dose on Sun11/08/13 at 1445, Until Discontinued $ Given 11/10/2013 1:56 PM LABOR RELATIONS TEACHER 750 m g 100 mL/hr $ Given 11/09/2013 1:41 PM LABOR RELATIONS TEACHER 750 mg 100 mL/hr $ Given 11/08/2013 2:52 PM LABOR RELATIONS TEACHER 750 mg 100 mL/hr lisinopril (PRINIVIL; ZESTRIL) tablet 20 mg 20 mg, Oral, DAILY, First dose on Sun11/05/13 at 1745, Until Discontinued $ Given 11/07/2013 11:13 AM LABOR RELATIONS TEACHER 20 mg $ Given 11/05/2013 6:10 PM LABOR RELATIONS TEACHER 20 mg magnesium sulfate bolus IVPB in sterile IV fluid 2 g 2 g, at 25 mL/hr, Administer over 120 Minutes, Intravenous, ONCE, 1 dose, On 11/01/13 at 2230, Electrolyte Replacement Protocol: $ Given 11/01/2013 10:53 PM LABOR RELATIONS TEACHER 2 g 25 mL/hr methylPREDNISolone sod succ (Solu-MEDROL) injection 125 mg 125 mg, Intravenous, ONCE, 1 dose, On Sun11/01/13 at 1515 $ Given 11/01/2013 4:32 PM LABOR RELATIONS TEACHER 125 mg methylPREDNISolone sod succ (Solu-MEDROL) injection 40 mg 40 mg, Intravenous, EVERY 8 HOURS, First dose (after last modification) on Sun11/04/13 at 1400, Until Discontinued $ Given 11/05/2013 3:32 PM LABOR RELATIONS TEACHER 40 mg $ Given 11/05/2013 5:56 AM LABOR RELATIONS TEACHER 40 mg $ Given 11/04/2013 9:55 PM LABOR RELATIONS TEACHER 40 mg methylPREDNISolone sod succ (Solu-MEDROL) injection 40 mg 40 mg, Intravenous, EVERY 8 HOURS, 1 dose, First dose (after last modification) on Sun11/05/13 at 2200 $ Given 11/05/2013 10:59 PM LABOR RELATIONS TEACHER 40 mg methylPREDNISolone sod succ (Solu-MEDROL) injection 40 mg 40 mg, Intravenous, EVERY 8 HOURS, First dose on 11/08/13 at 1515, Until Discontinued $ Given 11/13/2013 5:48 AM LABOR RELATIONS TEACHER 40 mg $ Given 11/12/2013 9:36 PM LABOR RELATIONS TEACHER 40 mg $ Given 11/12/2013 2:40 PM LABOR RELATIONS TEACHER 40 mg methylPREDNISolone sod succ (Solu-MEDROL) injection 40 mg 40 mg, Intravenous, EVERY 12 HOURS, First dose (after last modification) on Sun11/13/13 at 1800, Until Discontinued $ Given 11/14/2013 5:51 AM LABOR RELATIONS TEACHER 40 mg $ Given 11/13/2013 6:00 PM LABOR RELATIONS TEACHER 40 mg methylPREDNISolone sod succ (Solu-MEDROL) injection 60 mg 60 mg, Intravenous, EVERY 6 HOURS, First dose on Sun11/02/13 at 0000, Until Discontinued $ Given 11/03/2013 7:44 AM LABOR RELATIONS TEACHER 60 mg $ Given 11/03/2013 2:11 AM LABOR RELATIONS TEACHER 60 mg $ Given 11/02/2013 7:42 PM LABOR RELATIONS TEACHER 60 mg methylPREDNISolone sod succ (Solu-MEDROL) injection 60 mg 60 mg, Intravenous, EVERY 8 HOURS, First dose (after last modification) on Sun11/03/13 at 1400, Until Discontinued $ Given 11/04/2013 6:24 AM LABOR RELATIONS TEACHER 60 mg $ Given 11/03/2013 9:38 PM LABOR RELATIONS TEACHER 60 mg $ Given 11/03/2013 1:33 PM LABOR RELATIONS TEACHER 60 mg midazolam (VERSED) 1 mg/ml injection ADS Med 1 dose, Starting on 11/08/13 at 1322, Until 11/08/13 at 1325, ISRAEL FRENCH: cabinet override midazolam (VERSED) injection 2 mg 2 mg, Intravenous, ONCE, 1 dose, On 11/08/13 at 1345 $ Given 11/08/2013 1:25 PM LABOR RELATIONS TEACHER 2 mg morphine injection 4 mg 4 mg, Intravenous, ONCE, 1 dose, On 11/01/13 at 1700 $ Given 11/01/2013 4:36 PM LABOR RELATIONS TEACHER 4 mg ondansetron (ZOFRAN) injection 4 mg 4 mg, Intravenous, ONCE, 1 dose, On 11/01/13 at 1700 $ Given 11/01/2013 4:35 PM LABOR RELATIONS TEACHER 4 mg PARoxetine (PAXIL) tablet 40 mg 40 mg, Oral, DAILY, First dose on Sun11/05/13 at 1745, Until Discontinued $ Given 11/07/2013 11:14 AM LABOR RELATIONS TEACHER 40 mg $ Given 11/06/2013 10:18 AM LABOR RELATIONS TEACHER 40 mg $ Given 11/05/2013 6:10 PM LABOR RELATIONS TEACHER 40 mg piperacillin - tazobactam (ZOSYN) IVPB 3.375 g 3.375 g, at 200 mL/hr, Intravenous, EVERY 6 HOURS, First dose on 11/08/13 at 1800, Until Discontinued $ Given 11/14/2013 5:51 AM LABOR RELATIONS TEACHER 3.375 g 200 mL/hr $ Given 11/14/2013 12:15 AM LABOR RELATIONS TEACHER 3.375 g 200 mL/hr $ Given 11/13/2013 6:05 PM LABOR RELATIONS TEACHER 3.375 g 200 mL/hr predniSONE (DELTASONE) tablet 40 mg 40 mg, Oral, DAILY, First dose on Leena 11/06/13 at 0900, Until Discontinued, Take with food $ Given 11/07/2013 11:12 AM LABOR RELATIONS TEACHER 40 mg $ Given 11/06/2013 10:17 AM LABOR RELATIONS TEACHER 40 mg propofol (DIPRIVAN) injection 0-50 mcg/kg/min ? 125 kg (rounded to 0-37.5 mL/hr), Intravenous, CONTINUOUS, Starting on 11/08/13 at 1230, Until Leena 11/13/13 at 1558, Titrate to yessy Rate Change 11/12/2013 9:37 AM LABOR RELATIONS TEACHER 40 mcg/kg/min 30 mL/hr Rate Change 11/12/2013 9:25 AM LABOR RELATIONS TEACHER 30 mcg/kg/min 22.5 mL/h r $ New Bag/Syringe 11/12/2013 6:27 AM LABOR RELATIONS TEACHER 20 mcg/kg/min 15 mL/hr traZODone (DESYREL) tablet 50 mg 50 mg, Oral, AT BEDTIME PRN, Insomnia, Starting on 11/03/13 at 1230, Until Sun11/14/13 at 1548 $ Given 11/13/2013 8:56 PM LABOR RELATIONS TEACHER 50 mg $ Given 11/12/2013 9:36 PM LABOR RELATIONS TEACHER 50 mg $ Given 11/10/2013 10:34 PM LABOR RELATIONS TEACHER 50 mg vancomycin (VANCOCIN) 1,500 mg in NaCl 0.9 % IVPB 1,500 mg, at 250 mL/hr, Intravenous, EVERY 12 HOURS, 4 doses, First dose on Sun11/09/13 at 0400, Until Discontinued, Refrigerate $ Given 11/10/2013 3:30 PM LABOR RELATIONS TEACHER 1,500 mg 250 mL/hr $ Given 11/10/2013 3:51 AM LABOR RELATIONS TEACHER 1,500 mg 250 mL/hr $ Given 11/09/2013 4:48 PM LABOR RELATIONS TEACHER 1,500 mg 250 mL/hr vancomycin (VANCOCIN) 1,750 mg in NaCl 0.9 % IVPB 1,750 mg, Intravenous, EVERY 12 HOURS, First dose on Sun11/11/13 at 0400, Until Discontinued, Refrigerate $ Given 11/11/2013 5:57 AM LABOR RELATIONS TEACHER 1,750 mg 250 mL/hr vancomycin (VANCOCIN) 2,500 mg in NaCl 0.9 % IVPB 2,500 mg, at 200 mL/hr, Intravenous, ONCE, 1 dose, On 11/08/13 at 1600, Refrigerate $ Given 11/08/2013 4:06 PM LABOR RELATIONS TEACHER 2,500 mg 20 0 mL/hr documented in this encounter Active and Recently Administered Medications Times are shown in LABOR RELATIONS TEACHER. Scheduled Medication Order 11/12/2013 11/13/2013 11/14/2013 0.9% NaCl injection 3 mL (CANCELED) 3 mL, Intracatheter, EVERY 8 HOURS, First dose on 11/01/13 at 2200, Until Discontinued 0530 ($ Given - Provider: Cordelia Kuo, RN)1442 ($ Given - Provider: Tuyet Kauffman, CATHI)2136 ($ Given - Provider: Kailee Robledo RN) 0548 ($ Given - Provider: Chelsea Arambula, CATHI)1451 ($ Given - Provider: Merle Pierre RN)2048 ($ Given - Provider: Rani Coats RN) 0552 ($ Given - Provider: Rani Coats RN)1400 (Due) albuterol (PROVENTIL;VENTOLIN) (5 MG/ML) 0.5% nebulizer solution 2.5 mg 2.5 mg, Inhalation, 4 TIMES DAILY, First dose (after last modification) on 11/02/13 at 0200, Until Discontinued, Dilute prior to administration via nebulization. 0228 ($ Given - Provider: Arianne Jacob RCP)0802 ($ Given - Provider: Annmarie Velásquez RCP)1423 ($ Given - Provider: Annmarie Velásquez RCP)202 ($ Given - Provider: Laron Melton RCP) 0204 ($ Given - Provider: Arianne Jacob RCP)0808 ($ Given - Provider: Henri Luo RCP)1339 ($ Given - Provider: Henri Luo RCP)2013 ($ Given - Provider: Hugo Gibbons) 0211 ($ Given - Provider: Hugo Gibbons)0743 ($ Given - Provider: Beatriz Rand RCP)1436 ($ Given - Provider: Beatriz Rand RCP) amLODIPine (NORVASC) tablet 10 mg (CANCELED) 10 mg, Per NG/OG Tube, DAILY, First dose on Sun11/09/13 at 1130, Until Discontinued 0808 ($ Given - Provider: Tuyet Kauffman RN) 0847 ($ Given - Provider: Merle Pierre, RN) 0921 ($ Given - Provider: Smita Montelongo, RN) amoxicillin-clavulanate (AUGMENTIN) tablet 875 mg 875 mg, Oral, 2 TIMES DAILY WITH MEALS, First dose on Sun11/14/13 at 1130, Until Discontinued, Administer with food to decrease GI side effects. 1208 ($ Given - Provider: Smita Montelongo, RN) aspirin tablet 325 mg 325 mg, Per NG/OG Tube, DAILY, First dose (after last modification) on Sun11/09/13 at 0900, Until Discontinued 0808 ($ Given - Provider: Tuyet Kauffman RN) 0847 ($ Given - Provider: Merle Pierre RN) 0921 ($ Given - Provider: Smita Montelongo, CATHI) budesonide-formoterol (SYMBICORT) 160-4.5 MCG/ACT inhaler 2 Puff 2 puff, Inhalation, 2 TIMES DAILY, First dose on Sun11/03/13 at 2100, Until Discontinued, Rinse mouth after usage . WASTE DISPOSAL INSTRUCTION: Send to Pharmacy for Disposal. . 1038 ($ Given - Provider: Annmarie Velásquez RCP)2021 ($ Given - Provider: Laron Melton RCP) 0810 ($ Given - Provider: Henri Luo RCP)2019 ($ Given - Provider: Hugo Gibbons) 0752 ($ Given - Provider: Beatriz Rand RCP) enoxaparin (LOVENOX) injection 40 mg 40 mg, Subcutaneous, EVERY 12 HOURS (06 AND 18), First dose on Sun11/07/13 at 1800, Until Discontinued, Dosage adjusted by pharmacy according to [facility] Renal Dose Adjustment Policy. 0624 ($ Given - Provider: Cordelia Kuo RN)1819 ($ Given - Provider: Tuyet Kauffman RN) 0548 ($ Given - Provider: Chelsea Arambula RN)1800 ($ Given - Provider: Merle Pierre RN) 0551 ($ Given - Provider: Rani Coats, CATHI) famotidine (PEPCID) tablet 20 mg (CANCELED) 20 mg, Per G Tube, 2 TIMES DAILY, First dose on Sun11/10/13 at 2100, Until Discontinued 0808 ($ Given - Provider: Tuyet Kauffman RN)2136 ($ Given - Provider: Kailee Robledo RN) 0847 ($ Given - Provider: Merle Pierre RN)2047 ($ Given - Provider: Rani Coats, CATHI) 0921 ($ Given - Provider: Smita Montelongo RN) furosemide (LASIX) injection 40 mg (CANCELED) 40 mg, Intravenous, DAILY, First dose on Sun11/11/13 at 1730, Until Discontinued 0808 ($ Given - Provider: Tuyet Kauffman RN) 0850 ($ Given - Provider: Merle Pierre RN) 0921 ($ Given - Provider: Smita Montelongo RN) glipiZIDE (GLUCOTROL) tablet 5 mg (CANCELED) 5 mg, Oral, DAILY BEFORE BREAKFAST, First dose (after last reorder) on Sun11/13/13 at 1930, Until Discontinued, Give 30 minutes before meals; if dose is greater than 15mg per day, give in divided dose 0 (Not Administered - Provider: Rani Coats RN - Reason: Per Administration Instructions) 0719 ($ Given - Provider: Smita Montelongo RN) guaifenesin ER 12hr (MUCINEX) tablet 1,200 mg 1,200 mg, Oral, EVERY 12 HOURS, First dose on Sun11/13/13 at 1100, Until Discontinued, Do not crush, chew, or cut in half. 1055 ($ Given - Provider: Merle Pierre RN)8 ($ Given - Provider: Rani Coats RN) 0921 ($ Given - Provider: Smita Montelongo RN) insulin lispro (humaLOG) injection 3-18 Units (CANCELED) 3-18 Units, Subcutaneous, EVERY 6 HOURS, First dose (after last modification) on [place] 11/09/13 at 0600, Until Discontinued, SLIDING SCALE # 2 May be given immediately before meal, during meal, or immediately after meal is eaten. Meal must be present before administration. DO NOT GIVE BEDTIME DOSING 70 or LESS, follow Hypoglycemic guidelines, 71-140 No Insulin given, 141-180 GIVE 3 units of Insulin, 181-220 GIVE 6 units of Insulin, 221-260 GIVE 9 units of Insulin, 261-300 GIVE 12 units of Insulin, 301-350 GIVE 15 units of Insulin, >350 Give 18 units of Insulin---Call physician Call physician if feeding method changes. Obtain current Blood Glucose if necessary. May be given immediately before meal, during meal, or immediately after meal is eaten. Meal must be present before administration. 0108 ($ Given - Provider: Cordelia Kuo RN)0634 ($ Given - Provider: Cordelia Kuo RN)1155 ($ Given - Provider: Tuyet Kauffman RN)1748 ($ Given - Provider: Tuyet Kauffman RN)2359 ($ Given - Provider: Kailee Robledo, CATHI) 0557 ($ Given - Provider: Chelsea Arambula RN)1055 ($ Given - Provider: Merle Pierre RN) insulin lispro (humaLOG) injection 3-18 Units (CANCELED) 3-18 Units, Subcutaneous, 3 TIMES DAILY BEFORE MEALS, First dose (after last modification) on [place] 11/13/13 at 1630, Until Discontinued, SLIDING SCALE # 2 May be given immediately before meal, during meal, or immediately after meal is eaten. Meal must be present before administration. DO NOT GIVE BEDTIME DOSING 70 or LESS, follow Hypoglycemic guidelines, 71-140 No Insulin given, 141-180 GIVE 3 units of Insulin, 181-220 GIVE 6 units of Insulin, 221-260 GIVE 9 units of Insulin, 261-300 GIVE 12 units of Insulin, 301-350 GIVE 15 units of Insulin, >350 Give 18 units of Insulin---Call physician Call physician if feeding method changes. Obtain current Blood Glucose if necessary. May be given immediately before meal, during meal, or immediately after meal is eaten. Meal must be present before administration. 1800 ($ Given - Provider: Merle Pierre RN) 0717 ($ Given - Provider: Smita Montelongo RN)1230 (Not Administered - Provider: Smita Montelongo RN - Reason: Per Administration Instructions) ipratropium (ATROVENT) nebulizer solution 0.5 mg 0.5 mg, Inhalation, 4 TIMES DAILY, First dose (after last modification) on [place] 11/02/13 at 0200, Until Discontinued 0228 ($ Given - Provider: Arianne Jacob CONTRACT TECHNICIAN)0802 ($ Given - Provider: Annmarie Velásquez CONTRACT TECHNICIAN)1423 ($ Given - Provider: Annmarie Velásquez CONTRACT TECHNICIAN)2022 ($ Given - Provider: Laron Melton [facility]) 0204 ($ Given - Provider: Arianne Jacob CONTRACT TECHNICIAN)0808 ($ Given - Provider: Henri Luo [facility])1340 ($ Given - Provider: Henri Luo [facility])2014 ($ Given - Provider: Hugo Gibbons) 0211 ($ Given - Provider: Hugo Gibbons)0743 ($ Given - Provider: Beatriz Rand CONTRACT TECHNICIAN)1436 ($ Given - Provider: Beatriz Rand CONTRACT TECHNICIAN) methylPREDNISolone sod succ (Solu-MEDROL) injection 40 mg (CANCELED) 40 mg, Intravenous, EVERY 8 HOURS, First dose on [facility] 11/08/13 at 1515, Until Discontinued 0625 ($ Given - Provider: Cordelia Kuo RN)1440 ($ Given - Provider: Tuyet Kauffman, CATHI)2136 ($ Given - Provider: Kailee Robledo RN) 0548 ($ Given - Provider: Chelsea Arambula, CATHI) methylPREDNISolone sod succ (Solu-MEDROL) injection 40 mg (CANCELED) 40 mg, Intravenous, EVERY 12 HOURS, First dose (after last modification) on [place] 11/13/13 at 1800, Until Discontinued 1800 ($ Given - Provider: Merle Pierre RN) 0551 ($ Given - Provider: Rani Coats, CATHI) piperacillin - tazobactam (ZOSYN) IVPB 3.375 g (CANCELED) 3.375 g, at 200 mL/hr, Intravenous, EVERY 6 HOURS, First dose on 11/08/13 at 1800, Until Discontinued 0105 ($ Given - Provider: Cordelia Kuo, CATHI)0135 (Rx Stopped - Provider: Cordelia Kuo, CATHI)0624 ($ Given - Provider: Cordelia Kuo RN)0654 (Rx Stopped - Provider: Tuyet Kauffman, CATHI)1137 ($ Given - Provider: Tuyet Kauffman, RN)1207 (Rx Stopped - Provider: Tuyet Kauffman, CATHI)1819 ($ Given - Provider: Tuyet Kauffman, CATHI)1849 (Rx Stopped - Provider: Kailee Robledo RN)2359 ($ Given - Provider: Kailee Robledo RN) 0029 (Rx Stopped - Provider: Kailee Robledo RN)0548 ($ Given - Provider: Chelsea Arambula RN)0618 (Rx Stopped - Provider: hCelsea Arambula RN)1259 ($ Given - Provider: Merle Pierre RN)1329 (Rx Stopped - Provider: Merle Pierre RN)1805 ($ Given - Provider: Merle Pierre, CATHI)1835 (Rx Stopped - Provider: Merle Pierre, CATHI) 0015 ($ Given - Provider: Rani Coats, CATHI)0045 (Rx Stopped - Provider: Rani Coats, CATHI)0551 ($ Given - Provider: Rani Coats, CATHI)0621 (Rx Stopped - Provider: Rani Coats, CATHI) Continuous Medication Order 11/12/2013 11/13/2013 11/14/2013 0.9% NaCl infusion (CANCELED) at 10 mL/hr, Intravenous, CONTINUOUS, Starting on 11/08/13 at 1545, Until Sun11/14/13 at 1548 0411 (Current Rate - Provider: Cordelia Kuo RN) propofol (DIPRIVAN) injection (CANCELED) 0-50 mcg/kg/min ? 125 kg (rounded to 0-37.5 mL/hr), Intravenous, CONTINUOUS, Starting on 11/08/13 at 1230, Until [place] 11/13/13 at 1558, Titrate to yessy 0135 ($ New Bag/Syringe - Provider: Cordelia Kuo RN)0410 (Rx Holiday - Provider: Cordelia Kuo RN)0448 (Rx Holiday - Provider: Cordelia Kuo RN)0529 (Restarted - Provider: Cordelia Kuo RN)0627 ($ New Bag/Syringe - Provider: Cordelia Kuo, RN)0925 (Rate Change - Provider: Tuyet Kauffman, CATHI)0937 (Rate Change - Provider: Tuyet Kauffman RN) PRN Medication Order 11/12/2013 11/13/2013 11/14/2013 acetaminophen (TYLENOL) tablet 650 mg 650 mg, Oral, EVERY 6 HOURS PRN, Pain, Starting on Sun11/05/13 at 1702, Until Sun11/14/13 at 1548, Maximum allowable Acetaminophen amount = 4 Grams (4000 mg) / 24 hours. 1135 ($ Given - Provider: Smita Montelongo RN) hydrALAZINE (APRESOLINE) injection 10 mg (CANCELED) 10 mg, Intravenous, EVERY 4 HOURS PRN, for SBP above 150, Starting on 11/09/13 at 1126, Until Sun11/14/13 at 1548 0015 ($ Given - Provider: Rani Coats, CATHI) traZODone (DESYREL) tablet 50 mg 50 mg, Oral, AT BEDTIME PRN, Insomnia, Starting on 11/03/13 at 1230, Until Sun11/14/13 at 1548 2136 ($ Given - Provider: Kailee Robledo RN) 2056 ($ Given - Provider: Rani Coats, CATHI) documented in this encounter Care Teams Manager Lab Relationship Specialty Start Date End Date None, [place] [address] PCP - General 11/01/13 documented as of this encounter
--- OUTSIDE RECORDS SUMMARY | 2024-10-26 21:09 | XMS_ITS | Encounter Summary ---
Author Organization [facility] Address [address] [facility] [place] [address] Care Team Providers Care Lithopone Mill Worker Name Role Phone [facility] ([facility]) Primary Care Provi lesli Encounter Details Date Type Department Care Team (Late st Contact Info) Description 03/14/2021 11:51 PM CDT - 03/14/2021 11:52 PM CDT Emergency [facility] EMERGENCY DEPARTMENT [address] [place] [phone] Discharge Disposition: Home or Self Care Social [...] on file documented as of this encounter Medications at Time of Discharge [...] 11/14/2013 10/16/2023 documented as of this encounter Plan of Treatment Upcoming Encounters Date Type Department Care Team (Late st Contact Info) Description 04/21/2025 9:30 AM CDT Office Visit [facility] - Dermatology [address] [facility] [place] [address] Raghavendra Barajas MD [address] [facility] [place] [address] documented as of this encounter Visit Diagnoses Not on filedocumented in this encounter Care Teams Lithopone Mill Worker Relationship Specialty Start Date End Date [facility] ([facility]) [address] [place] [address] PCP - General 06/17/18 documented as of this encounter
--- OUTSIDE RECORDS SUMMARY | 2024-10-26 21:09 | XMS_ITS | Encounter Summary ---
Author Organization [facility] Address [address] [facility] [place] [address] Care Team Providers Care Cold Type Composing Machine Operator Name Role Phone [facility] ([facility]) Primary Care Provi lesli Reason for Visit * Reason Comments General Follow up Encounter Details Date Type Department Care Team (Late st Contact [facility]) Description 10/03/2022 9:50 AM MASTER YACHT Office Visit [facility] [address] [facility] [place] [address] Zainab Espino MD [address] [place] [address] Neoplasm of uncertain behavior of skin (Primary [...] * Patient Instructions* Zainab Espino MD - 10/03/2022 11:34 AM MASTER YACHT It was a pleasure seeing you in clinic today. We will follow up with you in 4-6 months. Use Ketoconazole shampoo as face wash and shampoo to face and scalp once daily. Lather and leave onfor 3-5 minutes, then wash off. Apply Ketoconazole 2% cream to all pink scaly areas on face twice daily. You had a biopsy performed today. We will call you with these results. This may take 7-10 days. [place] for how to care for the site. WOUND CARE INSTRUCTIONS If you have a bandage, please leave your bandage on overnight. Starting the next day, cleanse your wound with mild soap and water and gently pat dry. Avoid soaking in bath or dishwater. Apply petroleum jelly to the wound after cleaning the wound and, as needed, throughout the day to keep the area moist and prevent a scab from forming. Cover the wound with a Band-Aid or appropriate dressing. For pain, you may take acetaminophen (extra or regular strength), 2 tablets every four hours as needed for pain. Do not exceed the recommended limit on the directions. Avoid ibuprofen containing products or related products(Motrin, Advil, Aleve, aspirin, etc) unless prescribed by your physician. Avoid any trauma of activity that may open your surgical wound. Notify your physician if you have: Bleeding that does not stop after 20 minutes of continuous pressure. Yellowish/greenish discharge from the treated area Increasing tenderness or pain Warmth of the area and/or fever over 101 F Red streaks up the arm or leg close to the treated area ER [facility]ACHT documented in this encounter Progress Notes * Francisco Rodriguez MD - 10/03/2022 11:03 AM CST I have seen and examined the patient with the resident and I agree with the findings and plan of care as documented by the resident. I confirm history, exam, assessment and plan with no exceptions/additions unless otherwise noted: Date of Service: 10/03/22 Rash Face lesion Francisco Rodriguez MD ER [facility]AC[facility] * Zainab Espino MD - 10/03/2022 10:51 AM CST Chief Complaint Patient presents with ??? General Follow up HPI: Jp Morley a 61 year old male presents for skin lesions. Concerns: 1. L cheek x1 lesion Status of condition: Still there Current treatment: - Duoderm - Vaseline Side effects of treatment: none VZV PCR (06/22/22): neg HSV 1+2 DNA PCR (06/22/22): TNP 2. Bunny derm, face Status of condition: Improved Current treatment: - Ketoconazole 2% shampoo QD - Ketoconazole 2% cream BID Side effects of treatment: none PE: No acute distress. Mood clear/affect appropriate. Alert and oriented. Mucous membranes moist. Sclera anicteric. Visible skin exam was conducted to include the scalp, face, lips/teeth, lids/conjunctiva, ears, neck, right and left hands and forearms and was normal with the following exceptions: - Eroded crusted pink plaque on left cheek - Scaly plaques on bilateral cheeks - Scalp with scant scale A/P: Jp was seen today for general. Diagnoses and all orders for this visit: Neoplasm of uncertain behavior of skin - DERMATOPATHOLOGY (Specimen Count = 1) - PROC BIOPSY OF SKIN LESION - Location: L cheek - Ddx: Rule out NMSC - Shave Biopsy (see procedure note) - Post-biopsy handout given - Wound care instructions reviewed - Will call patient with biopsy results. If intervention is indicated, will make arrangements at that time Other seborrheic dermatitis - Improved, but not at goal; mild to moderate on cheeks - Continue ketoconazole (Nizoral) 2 % shampoo; Apply to affected dry areas on forehead, nose, cheeks, chin once daily. Lather and leave on for 3-5 minutes, then wash off. 30 days supply - Continue ketoconazole (Nizoral) 2 % cream; Apply to affected areas on forehead, between eyebrows,nose, cheeks, chin twice daily. 30 days supply. - Re-emphsized treating all scaly areas on face Sun protection, sunscreen with broad spectrum protection, SPF 30 and above, and self exam discussed. RTC in 4-6 months. Coding Rationale New or est? Established Patient Highest problem complexity: 2 or more stable chronic illnesses Highest level of risk: Moderate Suggested code: 55203 Patient was seen, examined, and discussed with attending physician, Dr. Rodriguez. Zainab Espino MD Dermatology Resident, PGY-4 [facility], Department of Dermatology ER YACHT documented in this encounter Procedure Notes * Zainab Espino MD - 10/03/2022 1:00 PM CSTAssociated Order(s): PROC BIOPSY OF SKIN LESION Procedure(s): MI TANGNTL BX SKIN SINGLE LES Pre-Procedure Diagnose(s): Neoplasm of uncertain behavior of skin Risks, benefits and alternatives to shave biopsy were discussed with the patient. Verbal consent obtained. Location: left cheek Ddx: Rule out NMSC Skin prep: Alcohol Anesthesia: 1% lidocaine with epinephrine Hemostasis: Aluminum Chloride Dressing and wound care discussed. Patient agrees to phone call for results and message if not available. Zainab Espino MD Dermatology Resident, PGY-4 [facility], Department of Dermatology ER Y[facility] Associated attestation - Francisco Rodriguez MD - 10/03/2022 4:35 PM MASTER YACHT A procedure was performed. I was present for the banks and critical portions of any procedures performed and was readily, immediately available for the remainder of the procedure at all times. Francisco Rodriguez MD documented in this encounter Plan of Treatment Upcoming Encounters Date Type Department Care Team (Late st Contact Info) Description 04/21/2025 9:30 AM CDT Office Visit [facility] - Dermatology [address] [facility] [place] [address] Raghavendra Barajas MD [address] [facility] [place] [address] documented as of this encounter Procedures Procedure Name Priority Date/Time Associated Diagnosis Comments MI TANGNTL BX SKIN SINGLE LES Routine 10/03/2022 1:00 PM MASTER YACHT Neoplasm of uncertain behavior of skin DERMATOPATHOLOGY Routine 10/03/2022 12:0 0 AM MASTER YACHT Neoplasm of uncertain behavior of skin documented in this encounter Results * MI TANGNTL BX SKIN SINGLE LES (10/03/2022 1:00 PM MASTER YACHT) Narrative Francisco Rodriguez MD - 10/03/2022 1:00 PM MASTER YACHT Zainab Espino MD ? 10/03/2022 ??1:00 PM Risks, benefits and alternatives to shave biopsy were discussed with the patient. Verbal consent obtained. Location: left cheek Ddx: Rule out NMSC Skin prep: Alcohol Anesthesia: 1% lidocaine with epinephrine Hemostasis: Aluminum Chloride Dressing and wound care discussed. Patient agrees to phone call for results and message if not available. Zainab Espino MD Dermatology Resident, PGY-4 [facility], Department of Dermatology Sindy Cardoso MD PROCEDURE/MINOR VICKERS RGICAL ORDERABLES * DERMATOPATHOLOGY (Specimen Count = 1) (10/03/2022 12:00 AM MASTER YACHT) Case Report Dermatopathology Report ? Case: [id number] ? Authorizing Provider: ??Sindy Cardoso MD ?Collected: ? 10/03/2022 12:00 AM ? Ordering Location: ? [facility] ?Received: ?10/04/2022 06:56 AM ? Dermatology ? Pathologist: ? Cecilia Ewing MD ? Specimen: ?Skin, left cheek ? 1:58 PM [facility] DERMATOPATHOLOGY LABORATORY Final Diagnosis Specimen A. SKIN, left cheek: BASAL CELL CARCINOMA, NODULAR TYPE (C44.319) 1:58 PM [facility] DERMATOPATHOLOGY LABORATORY Clinical History Rule Out NMSC 1:58 PM [facility] DERMATOPATHOLOGY LABORATORY Gross Description Specimen A: Received is one formalin filled container labeled with the patient's name and designated left cheek. The specimen consists of a shave biopsy measuring [id number]. Jar 0. 1:58 PM [facility] DERMATOPATHOLOGY LABORATORY Microscopic Description Specimen A. SKIN, left cheek: Within the dermis there are aggregates of basaloid cells with a high nuclear to cytoplasmic ratio and peripheral palisading. 1:58 PM [facility] DERMATOPATHOLOGY LABORATORY Disclaimer An external and internal positive and negative controls are appropriate for the histochemical, immunohistochemical and immunofluorescence stain(s) in this case (if any), except where stated explicitly. The performance characteristics of the stain(s) cited in this report were developed and its performance characteristic determined by the Dermatopathology Laboratory at [facility], directed by Dr. Vincent Ewing. These tests need not be, and therefore are not, approved by the [place] Food and Drug Administration. The tests are used for clinical purposes. Billing Codes Specimen Charges Stain Charges 41631 1 1:58 PM [facility] DERMATOPATHOLOGY LABORATORY Embedded Images 1:58 PM [facility] DERMATOPATHOLOGY LABORATORY Pathology/Cytolog y TISSUE SPECIMEN FROM SKIN / Unknown 10/03/2022 10/04/2022 6:56 AM MASTER YACHT Sindy Cardoso MD LAB - PATHOLOGY/CY TOLOGY ORDERABLES DERMATOPATHOLOGY LABORATORY [facility] - Department of Dermatology [facility] Medicine [address] [place] [address], [address] [phone] documented in this encounter Visit Diagnoses Diagnosis Neoplasm of uncertain behavior of skin- Primary Other seborrheic dermatitis documented in this encounter Care Teams Cold Type Composing Machine Operator Relationship Specialty Start Date End Date [facility] ([facility] [address] [place] [address] PCP - General 06/17/18 documented as of this encounter
--- OUTSIDE RECORDS SUMMARY | 2024-10-26 21:12 | XMS_ITS | CONTINUITY OF CARE DOCUMENT ---
Author Name jovan aldana Address Unknown Organization [facility] Address [address] [place] [address] Phone [phone] Care Team Providers Care Pick Up And Delivery Driver Name Role Phone Brock FRANCIS, William Unavailable [phone] RAYO FRANCIS, MADDISON Unavailable [phone] RAYO FRANCIS, MADDISON Unavailable [phone] PROBLEMS Condition Status Date Provider Notes Atrial fibrillation active Evelyn Rosen Dual chamber PM - Biotronik (MRI safe) active Jaz Ann Cellulitis active Nikko Estrada MD CVA active William Gutiérrez MD Sick sinus syndrome active William Gutiérrez MD Tricuspid insufficiency active Kulwant dumont MD Hypothyroidism active Kulwant Stafford MD Tobacco abuse active Kulwant Stafford MD C O P D active ? Kulwant Stafford MD Hypertension active ? Kulwant Stafford MD Diabetes mellitus active Kulwnat Stafford MD RIKKI active Kulwant Stafford MD Fatigue active Kulwant Stafford MD Shortness of breath active Kulwant mendoza MD ENCOUNTERS Date Type Provider Location Encounter Diag nosis - In-person encounter Office Visit Nikko Estrada MD [facility] Cellulitis - In-person encounter Office Visit William Gutiérrez MD [facility] - In-person encounter Office Visit William Gutiérrez MD [facility] - In-person encounter Office Visit William Gutiérrez MD [facility] - In-person encounter Office Visit William Gutiérrez MD [facility] - In-person encounter Office Visit Willaim Gutiérrez MD [facility] CVA - In-person encounter Office Visit William Gutiérrez MD [facility] Sick sinus syndrome - In-person encounter Office Visit Kulwant Stafford MD [facility] Shortness of breathFatigueOSADiabetes mellitusHypertensionC O P DTobacco abuseHypothyroidismTricuspid insufficiency VITAL SIGNS Date Observation Value Provider Body Mass Index (Ratio) 42.56 kg/m2 Kari Estrada MD blood pressure, diastolic 85 mm[Hg] Myrna nkLogjim blood pressure, systolic 174 mm[Hg] Shaunna Poseyogjim pulse rate 74 /min Uyen gamboa oxygen saturation, oximetry 92 % Uyen Ricks Inhaled O2 3 L/min Uyen gamboa blood pressure, diastolic 85 mm[Hg] Diana Ricks blood pressure, systolic 174 mm[Hg] Yaw Ricks weight E&M 248 [lb_av] Uyen gamboa respiratory rate E&M 16 /min Radha Ricks blood pressure, cuff size large Diana Ricks height E&M 64 [in_i] Uyen gamboa Body Mass Index (Ratio) 42.56 kg/m2 Fam Gutiérrez MD blood pressure, cuff size large An ananda Barriga blood pressure, diastolic 154 mm[Hg] Mireille Barriga blood pressure, systolic 199 mm[Hg] Eli jiménez Linus oxygen saturation, oximetry 98 % Yoselin Linus pulse rate 74 /min Yoselin Linus weight E&M 248 [lb_av] Yoselin Linus height E&M 64 [in_i] Yoselin Linus Body Mass Index (Ratio) 41.88 kg/m2 Fam Gutiérrez MD blood pressure, cuff size large Ke rrdaksha Ko blood pressure, diastolic 76 mm[Hg] Ke rri Maikel blood pressure, systolic 122 mm[Hg] Jeffrey Ko Inhaled O2 2 L/min Ladonna Liz [facility] oxygen saturation, oximetry 95 % Ladonna Ko respiratory rate E&M 16 /min Ladonna matias pulse rate 69 /min Ladonna Liz [facility] weight E&M 244 [lb_av] Ladonna Liz [facility] height E&M 64 [in_i] Ladonna Liz [facility] Body Mass Index (Ratio) 32.09 kg/m2 Fam Gutiérrez MD Inhaled O2 3 L/min Lisbeth caba blood pressure, diastolic 80 mm[Hg] Myrna nkLogjim blood pressure, systolic 127 mm[Hg] Shaunna Poseyogjim blood pressure, diastolic 80 mm[Hg] Kate Regan blood pressure, systolic 127 mm[Hg] Isac Regan weight E&M 187 [lb_av] Lisbeth caba blood pressure, cuff size regular Kate Regan respiratory rate E&M 16 /min Dorita Regan pulse rate 69 /min Lisbeth caba oxygen saturation, oximetry 99 % Lisbeth Regan height E&M 64 [in_i] Lisbeth caba Body Mass Index (Ratio) 32.95 kg/m2 Fam Gutiérrez MD blood pressure, cuff size large Ke rri Gruenenfeldquan blood pressure, diastolic 80 mm[Hg] Ke rri Gruenenfelder blood pressure, systolic 140 mm[Hg] Jeffrey ri Yungeldquan oxygen saturation, oximetry 96 % Ladonna Maikel respiratory rate E&M 16 /min Ladonna Nisha matias pulse rate 71 /min Ladonna Shalonda lder weight E&M 192 [lb_av] Ladonna Shalonda lder height E&M 64 [in_i] Ladonna Yunge lder Body Mass Index (Ratio) 31.75 kg/m2 Fam Gutiérrez MD blood pressure, diastolic 83 mm[Hg] Russell Soto blood pressure, systolic 132 mm[Hg] Merary Soto blood pressure, cuff size regular Cy braxton Soto oxygen saturation, oximetry 95 % Merle Soto respiratory rate E&M 16 /min Merle Soto pulse rate 67 /min Merle Rejibel l weight E&M 185 [lb_av] Merle Campbel l height E&M 64 [in_i] Merle Campbel l Body Mass Index (Ratio) 28.83 kg/m2 Fam Gutiérrez MD blood pressure, cuff size regular Cy braxton Soto blood pressure, diastolic 94 mm[Hg] Cy braxton Soto blood pressure, systolic 131 mm[Hg] Merary dom Soto pulse rate 60 /min Merle gonzalez respiratory rate E&M 16 /min Merle Soto oxygen saturation, oximetry 95 % Merle Soto weight E&M 168 [lb_av] Merle gonzalez height E&M 64 [in_i] Merle gonzalez blood pressure, diastolic 79 mm[Hg] Me amaury Paiz blood pressure, systolic 126 mm[Hg] Monique Paiz pulse rate 90 /min Amanda Paiz oxygen saturation, oximetry 96 % Amanda Paiz respiratory rate E&M 17 /min Amanda Paiz Body Mass Index (Ratio) 39.30 kg/m2 Marilee Paiz weight E&M 229 [lb_av] Amanda Paiz height E&M 64 [in_i] Amanda Paiz ALLERGIES Allergy Name Onset Date Reaction Criticality Status PENICILLIN High Criticality active TYLENOL Low Criticality active RESULTS Date Observation Value Provider Reference Range Interpretation Location coagulation managed by Sam Lanier RN international normalized ratio (INR) 2.0 Sam Lanier RN Normal prothrombin time (patient) 19.0 s Sam Lanier RN coagulation managed by Tuyet Rodriguez RN international normalized ratio (INR) 1.8 Tuyet Rodriguez RN Normal coagulation managed by Sam Lanier RN international normalized ratio (INR) 2.1 Merle Soto Normal prothrombin time (patient) 25.5 s Merle Charles coagulation managed by Sam Lanier RN prothrombin time (patient) 21.2 s Merle Soto international normalized ratio (INR) 1.8 Merle Soto Normal coagulation managed by Evelyn Rosen international normalized ratio (INR) 1.4 Evelyn Rosen Low prothrombin time (patient) 16.3 s Merle Soto pro brain natriuretic peptide 131.4 pg/mL [facility] 0.0 - 125.0 High anion gap, serum 16.5 [facility] - albumin/globulin ratio, serum 2.2 g/dL [facility] 1.1 - 2.5 globulin, serum 3.2 [facility] 2.3 - 3.8 urea nitrogen/creatinine ratio, serum 21.7 [facility] - Estimated Glomerular Filtration Rate (calc) 148.7 (?) [facility] 59.0 - chloride, serum 97.5 mmol/L [facility] 98.0 - 107.0 Low potassium, serum 4.2 mmol/L [facility] 3.5 - 5.1 sodium, serum 142.0 mmol/L [facility] 136.0 - 145.0 creatinine, serum 0.6 mg/dL [facility] 0.7 - 1.2 Low carbon dioxide, venous blood 28.0 mmol/L [facility] 22.0 - 29.0 albumin, serum 4.0 g/dL [facility] 3.5 - 5.2 calcium, serum 9.8 mg/dL [facility] 8.6 - 10.2 aspartate aminotransferase (SGOT), serum 19.0 1/L [facility] 0.0 - 40.0 alkaline phosphatase, serum 104.0 1/L [facility] 40.0 - 130.0 alanine aminotransferase (SGPT), serum 27.0 1/L [facility] 0.0 - 41.0 protein, total, serum 7.2 g/dL [facility] 6.6 - 8.7 bilirubin, serum, total 0.2 mg/dL [facility] 0.0 - 1.2 urea nitrogen, blood 13.0 mg/dL [facility] 6.0 - 20.0 blood glucose, random 169.0 mg/dL [facility] 74.0 - 99.0 High red blood cell distribution width, size density 52.[address] [facility] - immature granulocytes, percentage of total cells, blood 0.8 % [facility] - nucleated red blood cells as percent of blood leukocytes 0.0 % [facility] - red blood cell (erythrocyte) count, per high power field 0.0 10*3/UL [facility] - eosinophils as percent of blood leukocytes 2.8 % [facility] - neutrophils as percent of blood leukocytes 61.7 % [facility] Absolute Neutrophils 6.8 CELLS/UL [facility] 1.5 - 7.8 basophils as percent of blood leukocytes 0.7 % [facility] Absolute Basophils 0.1 CELLS/UL [facility] 0.0 - 0.2 monocytes as percent of blood leukocytes 9.4 % [facility] Monocytes 1.0 CELLS/UL [facility] 0.2 - 1.0 High lymphocytes as percent of blood leukocytes 24.6 % [facility] Lymphocytes 2.7 CELLS/UL [facility] 0.9 - 3.9 mean platelet volume 10.2 (?) [facility] - platelet count 240.0 THOUSAND/UL [facility] 100.0 - 400.0 mean corpuscular hemoglobin concentration, RBC 30.6 G/DL [facility] 31.0 - 38.0 Low mean corpuscular hemoglobin, RBC 28.9 pg [facility] 25.0 - 35.0 mean corpuscular volume, RBC 94.5 fL [facility] 75.0 - 100.0 hematocrit, blood 45.1 % [facility] 35.0 - 55.0 hemoglobin, blood 13.8 g/dL [facility] 11.5 - 16.5 erythrocyte count, whole blood 4.8 MILLION/UL [facility] 3.5 - 5.5 hemoglobin A1C, blood, as % of total hemoglobin 8.6 % [facility] 4.0 - 6.0 High HISTORY OF MEDICATION USE Medication Status Instructions Dates Provider Indications Com ments doxycycline monohydrate 100 mg capsule active Take 1 capsule by mouth twice a day Nikko Estrada MD doxycycline monohydrate 100 mg capsule completed - Nikko Estrada MD losartan 100 mg tablet active Take 1 tablet by mouth once a day William Gutiérrez MD diltiazem HCl 180 mg capsule,extended release 24 hr active 1 capsule once a day William Gutiérrez MD famotidine 20 mg tablet active Take 1 tablet by mouth twice a day Ladonna Ko tramadol 50 mg tablet active Take 1 tablet by mouth every six hours Ladonna Ko gabapentin 400 mg capsule active Take 1 capsule by mouth three times a day Ladonna Ko potassium chloride 20 mEq tablet extended release active Take 1 tablet by mouth once a day Ladonna Ko tamsulosin 0.4 mg capsule active Take 1 capsule by mouth once a day Ladonna Ko buspirone 5 mg tablet active Take 1 tablet by mouth as directed take one pill in the am, take 2 pills at noon and 2 pills at 4pm Ladonna Ko Anoro Ellipta 62.5-25 mcg/actuation blister with device active Inhale 1 puff as directed once a day Ladonna Ko tizanidine 2 mg tablet active Take 1 tablet by mouth every eight hours as needed Ladonna Ko albuterol sulfate 2.5 mg/3 mL (0.083 %) solution for nebulization active Inhale 1 ml using nebulizer every six hours as needed Ladonna Ko lorazepam 0.5 mg tablet completed 0.5 twice a day - Ladonna Ko Serevent Diskus 50 mcg/dose blister with device completed 1 puff twice a day - Ladonna Ko bupropion HCl 150 mg tablet extended release 24 hr completed Take 1 twice a day - Ladonna Ko benztropine 1 mg tablet completed Take 1 twice a day - Ladonna Ko paroxetine HCl 40 mg tablet completed once a day - Ladonna Ko amantadine HCl 100 mg capsule active Take 1 once a day Ladonna Ko nicotine 21 mg/24 hr patch 24 hour completed once a day - Ladonna Ko clonazepam 0.125 mg tablet,disintegra ting completed Take 1 twice a day - Ladonna Ko warfarin 5 mg tablet completed 1 tablet by mouth every night - Uyen Rikcs warfarin 7.5 mg tablet active 1 tablet by mouth every night William Gutiérrez MD losartan 50 mg tablet completed Take 1 tablet once a day - William Gutiérrez MD warfarin 5 mg tablet completed 1 tab on Sun & Sun, 1 & 1/2 tab remaining days of the week - Uyen Ricks GABAPENTIN 600 MG ORAL TABLET completed take 1 tab three times a day - Merle Soto Risperdal 1 mg tablet active Take 1 once a day Ladonna Ko diltiazem HCl 120 mg tablet completed Take 1 tablet once a day - William Gutiérrez MD atorvastatin 10 mg tablet active Take 1 tablet once a day Merle Soto Children[facility] Aspirin 81 mg tablet,chewable active Take 1 tablet once a day Merle Soto Humalog Mix 75-25 KwikPen 100 unit/mL (75-25) insulin pen completed Inject 10 unit once a day - Ladonna Ko Basaglar KwikPen U-100 Insulin 100 unit/mL (3 mL) insulin pen completed Inject 8 unit once a day - Uyen Rambo AMBIEN 5 MG ORAL TABLET completed - Ladonna Ko Vitamin D3 50 mcg (2,000 unit) tablet active 1 tablet by mouth once a day Lisbeth Regan Ventolin HFA 90 mcg/actuation HFA aerosol inhaler active Inhale 2 puff every four hours Lisbeth Regan TRAZODONE HCL 25mg TABS active 1 every night Ladonna Ko QVAR 80 MCG/ACT INHALATION AEROSOL SOLUTION completed inhale 2 puffs twice a day - Ladonna Ko TRAMADOL HCL 50 MG ORAL TABLET completed - Ladonna Ko SIMVASTATIN 40 MG ORAL TABLET completed ONE TAB. DAILY - Ladonna Ko METFORMIN HCL 500 MG ORAL TABLET completed One tablet twice a day - Merle Soto ALLERGY 10 MG ORAL TABLET completed - Ladonna Ko LISINOPRIL 40 MG ORAL TABLET completed ONE TAB. DAILY - Ladonna Ko IPRATROPIUM BROMIDE 0.02 % INHALATION SOLUTION completed - Ladonna Ko LEVOTHYROXINE SODIUM 50 MCG ORAL TABLET completed ONE TAB. DAILY - Merle Soto HYDROCODONE-ACETA MINOPHEN 5-325 MG ORAL TABLET completed - Ladonna Ko GLIPIZIDE 5 MG ORAL TABLET completed - Merle Soto GAVILYTE-N WITH FLAVOR PACK 420 GM ORAL SOLUTION RECONSTITUTED completed - Ladonna Ko Lasix 40 mg tablet active 1 tablet twice a day Ladonna Ko ERGOCALCIFEROL 8000 UNIT/ML ORAL SOLUTION completed One capsule twice a week - Ladonna Maikel AMLODIPINE BESYLATE 10 MG ORAL TABLET completed ONE TAB. DAILY - Ladonna Maikel ALBUTEROL SULFATE (2.5 MG/3ML) 0.083% INHALATION NEBULIZATION SOLUTION completed Inhale 3 mL 3 times a day by nebulization - Ladonna Maikel SOCIAL HISTORY Date Observation Value Provider social history E&M Marital Statu s: Single Ivone gibbonsjovi: O ccupation: Disabled Smoking History: P atortiz is a former smoker. Nikko Estrada MD social history reviewed E&M revi ewed - no changes required Nikko Estrada MD Exercise counseling yes Uyen Mayand passive cigarette sm jaycee exposure no Uyen Ricks smoking, date started 1969 Adair munoz Ricks smoking history, tot al pack/year 50 Uyen Mayand cigarette use yes Uyen Allen luis smoking status Former smoker Uyen duran social history E&M Marital Statu s: Single Ivone gibbonsjovi: O ccupation: Disabled Smoking History: P atortiz is a former smoker. William Gutiérrez MD social history reviewed E&M revi ewed - no changes required William Gutiérrez MD Exercise counseling yes Yoselin lynn passive cigarette sm jaycee exposure no Yoselin Barriga smoking, date started 1970 Yoselin elizondo smoking history, tot al pack/year 50 Yoselin Barriga cigarette use yes Yoselin Barriga smoking status Former smoker Yoselin mendoza social history E&M Marital Statu s: Single Ivone malachi: O ccupation: Disabled Smoking History: P atient is a former smoker. William Gutiérrez MD social history reviewed E&M revi ewed - no changes required William Gutiérrez MD Exercise counseling yes Ladonna moore passive cigarette sm jaycee exposure no Ladonna Ko smoking, date started 1969 Ladonna Barraganjoshuaquan smoking history, tot al pack/year 50 Ladonna Barraganjoshuaquan cigarette use yes Ladonna esparza smoking status Former smoker Ladonna boycevilma social history E&M Marital Statu s: Single Ivone carlosen: O ccupation: Disabled Smoking History: Marija saxena is a former smoker. William Gutiérrez MD passive cigarette sm jaycee exposure no William Gutiérrez MD cigarette use yes William Gutiérrez MD smoking status Former smoker William johnson MD social history reviewed E&M revi ewed - no changes required William Gutiérrez MD Exercise counseling yes Isacjan vidal Regan social history E&M Marital Statu s: Single Ivone ly: O ccupation: Disabled Smoking History: Marija saxena currently smokes every day. Marija saxena has been counseled to quit. William Gutiérrez MD social history reviewed E&M revi ewed - no changes required William Gutiérrez MD smoking/tobacco cess ation, patient education and counseling yes Ladonna Babcockrosa elena smoking, date started 1969 Ladonna Maikel smoking history, tot al pack/year 50 Ladonna Barraganjoshuaquan cigarette use yes Ladonna esparza smoking status Current every day smoker K rufus Maikel social history E&M Marital Statu s: Single C hildren: O ccupation: Disabled Smoking History: P atient currently smokes every day. P atient has been counseled to quit. William Gutiérrez MD social history reviewed E&M revi ewed - no changes required William Gutiérrez MD smoking/tobacco cess ation, patient education and counseling yes Merle Charles smoking, date started 1969 Meraryhal jiménez Charles smoking history, tot al pack/year 50 Merle Charles cigarette use yes Merle Mumtaz flores smoking status Current every day smoker C homar Charles smoking history, tot al pack/year 50 Sam Lanier RN social history reviewed E&M revi ewed - no changes required William Gutiérrez MD social history E&M Marital Statu s: Single C hildren: O ccupation: Disabled Smoking History: P atient currently smokes every day. P atient has been counseled to quit. William Gutiérrez MD pacemaker surgery, hx of yes Pablo Gutiérrez MD smoking/tobacco cess ation, patient education and counseling yes Merle Charles smoking, date started 1969 Emerita jiménez Charles smoking history, tot al pack/year 50 Merle Charles cigarette use yes Merle Mumtaz flores smoking status Current every day smoker C homar Charles smoking history, tot al pack/year 50 Jaz Ann social history reviewed E&M revi ewed - no changes required Kulwant Stafford MD social history E&M Smoking Histo ry: P atient currently smokes every day. P atient has been counseled to quit. Kulwant Stafford MD smoking, date started 1969 Dandre Paiz cigarette use yes Amanda Paiz smoking status Current every day smoker Cecilia moy Paiz smoking/tobacco cess ation, patient education and counseling yes Amanda Paiz FAMILY HISTORY Family Member Condition Mother Negative FH of Coron bran Artery Disease INSURANCE PROVIDERS Payer name Policy type / Coverage type [employer] party ID [employer] MEDICAID (2) Medicaid [id number] ADVANCE DIRECTIVES Name Date DISCUSSED - NO DECISION MADE TREATMENT PLAN Date Name Performer [id number],Ivone Wiseman of [facility], he is here for needing abx, he has taken doxy before according to Med rec, he says he is PCN allergic, will give 7 days of treatment with Doxycycline. Have him follow up with PCP for further care Nikko Estrada MD [id number],S, William Ramsantos n [id number],S, William Ramada n [id number],S, William Ramada n [id number],S, William Ramada n [id number],S, William Ramada n [id number],S, William Ramada n [id number],S, William Ramada n [id number],S, William Ramada n [id number],S, William Ramada n [id number],W, William Ramada n [id number],S, William Ramada n [id number],S, William Ramada n [id number],S, William Ramada n [id number],S, William Ramada n [id number],S, William Ramada n [id number],S, William Ramada n [id number],C,P acer check today shows underlying a-flutter with controlled rate. William Gutiérrez MD Cardiology:Celluliti s of [place], he is here for needing abx, he has taken doxy before according to Med rec, he says he is PCN allergic, will give 7 days of treatment with Doxycycline. Have him follow up with PCP for further care Nikko Estrada MD Cardiology William Gutiérrez MD Cardiology William Gutiérrez MD Cardiology William Gutiérrez MD Cardiology William Gutiérrez MD Cardiology William Gutiérrez MD Cardiology William Gutiérrez MD Cardiology William Gutiérrez MD Cardiology William Gutiérrez MD Cardiology William Gutiérrez MD Cardiology William Gutiérrez MD Cardiology William Gutiérrez MD Cardiology William Gutiérrez MD Cardiology William Gutiérrez MD Cardiology William Gutiérrez MD Cardiology William Gutiérrez MD Cardiology William Gutiérrez MD Cardiology:Pacer eklsy ck today shows underlying a-flutter with controlled rate. William Gutiérrez MD Cardiology Follow up William zhou MD Cardiology Follow up William zhou MD Cardiology Follow up William zhou MD Cardiology Follow up Wililam zhou MD Cardiology Follow up William zhou MD Cardiology Follow up William zhou MD Cardiology follow up William zhou MD Cardiology follow up William zhou MD Cardiology follow up William zhou MD Cardiology follow up William zhou MD Cardiology follow up William zhou MD Cardiology follow up William zhou MD Cardiology hospital follow up Ra tr Gutiérrez MD Cardiology hospital follow up Ra tr Gutiérrez MD Cardiology hospital follow up Ra tr Gutiérrez MD Cardiology hospital follow up Ra tr Gutiérrez MD Cardiology hospital follow up Ra tr Gutiérrez MD Date Name Complete Echo DLCO - 90793 FRC - 52515 FVC - 91716 PROBNP, N TERMINAL CBC (INCLUDES DIFF/P LT) COMPREHENSIVE METABO LIC PANEL W/EGFR HEMOGLOBIN A1c HISTORY OF PROCEDURES Procedure Date Procedure Name Provider Procedure Notes S tatus EKG Nikko Estrada MD compl eted EKG William Gutiérrez MD complete d EKG William Gutiérrez MD complete d Protbossman Gutiérrez MD complete d Ricardo Malik MD completed Ricardo Malik MD completed Ricardo Estrada MD compl eted SNOMED-CT: [id number] Smoking Cessation Counseling Kulwant Stafford MD completed BLOOD COUNT HEMOGLOBIN Kulwant walls MD completed FVC - 53792 Kulwant mendoza MD completed DLCO - 40454 Kulwant mendoza MD completed SNOMED-CT: 61258525 Physical Exam, Performed: Pulse Exam of Foot Kulwant Stafford MD completed EKG Kulwant mendoza MD completed SNOMED-CT: [id number] Current Medications Documented Kulwant Stafford MD completed
== END 2024-10-19 17:27 | disposition expired ==
PROVIDERS: Emergency Provider Student in an Organized Health Care Education/Training Program; PCP Pediatrics Neonatal-Perinatal Medicine
DX: I46.9 Cardiac arrest, cause unspecified (principal); I10 Essential (primary) hypertension; Z95.0 Presence of cardiac pacemaker; Z86.73 Personal history of transient ischemic attack (TIA), and cerebral infarction without residual deficits; I27.20 Pulmonary hypertension, unspecified; I50.9 Heart failure, unspecified; I48.91 Unspecified atrial fibrillation; Z79.01 Long term (current) use of anticoagulants; I25.10 Atherosclerotic heart disease of native coronary artery without angina pectoris; F41.9 Anxiety disorder, unspecified; F32.A Depression, unspecified; E11.9 Type 2 diabetes mellitus without complications; Z79.4 Long term (current) use of insulin; G47.30 Sleep apnea, unspecified
CPT/HCPCS: 31500; 99285; A9270; J0171; J0282